=== PATIENT | female | born 1975 | race Caucasian/White ===

== ENCOUNTER 2018-05-10 08:06 | Inpatient (IN) ==
--- NOTE | 2018-04-20 10:48 | Anesthesiology Consultation ---
Date of Service April 20, 2018 Assessment & Plan (1) Encounter for pre-operative examination: Chart Review Chart Review: Acceptable Risk for Surgery and Patient seen in Pre Admission Testing Consults Requested medical (Angelia Glasgow (04/26)) Patient was seen by PCPs office on 04/26 for pre-op evaluation. Per note, "Patient is medically cleared to undergo removal of instrumentation of L4-L5, Decompression and fusion L3-L4 on 05/10/18." Teaching & Discussion Pre-Anesthesia Teaching/Discussion Notes: Instructed NPO after midnight before surgery, except medications with 15 cc of water. Medication instructions provided according to the PAT guidelines. History Surgery Operation Date: 05/10/18 10:05 Proposed Procedures p L4-L5 Removal of Instrumentation, L3-L4 Decompression and Fusion - Luke Mc DO Height/Weight Height: 5 ft 1 in Weight: 117.5 kg Allergies Allergy/AdvReac Type Severity Reaction Status Date / Time No Known Drug Allergies Allergy Unknown NONE Verified 04/18/18 11:26 Medications Home Medications Medication Instructions Recorded Confirmed Last Taken cholecalciferol (vitamin D3) 400 unit PO DAILY 04/18/18 04/18/18 Unknown [Vitamin D3] dexlansoprazole [Dexilant] 60 mg PO HS 04/18/18 04/18/18 Unknown duloxetine [Cymbalta] 60 mg PO HS 04/18/18 04/18/18 Unknown oxycodone 15 mg PO QID 04/18/18 04/18/18 Unknown ropinirole [Requip] 3 mg PO HS 04/18/18 04/18/18 Unknown topiramate [Topamax] 50 - 100 mg PO HS 04/18/18 04/18/18 Unknown mecobalamin (vitamin B12) 1 dose PO MONTHLY 04/20/18 04/20/18 Unknown promethazine 12.5 mg PO Q8H PRN 04/20/18 04/20/18 Unknown sumatriptan succinate [Imitrex 1 pen SUBCUT UD PRN 04/20/18 04/20/18 Unknown STATdose Pen] Past Medical History Medical History Chronic back pain Degenerative disc disease Fibromyalgia GERD (gastroesophageal reflux disease) H/O difficult intubation 11/05/13 - Glidescope #4, ETT #7.0, Atraumatic, GS x 1 without difficulty. Hiatal hernia Osteoarthritis Past Family History Family History Father Family history of diabetes mellitus Grandfather (Paternal) Family history of diabetes mellitus Grandmother (Paternal) Family history of diabetes mellitus Past Surgical History Surgical History Fusion of spine L4-L5, L5-S1. 11/05/13: Glidescope #4, ETT #7.0, Atraumatic, GS x 1 without difficulty. History of bilateral tubal ligation History of carpal tunnel release RIGHT - REMOVED CYST FROM RIGHT HAND AT SAME TIME History of section History of colonoscopy History of dilatation and curettage History of esophagogastroduodenoscopy (EGD) History of hysterectomy VALENCIA WITH RSO History of tonsillectomy History of tooth extraction Spinal cord stimulator status PLACED 2016, REMOVED 2018 Past Anesthesia History No Hx of Anesthesia Complications, Difficult Airway and No Family Hx of Anesthesia Complications History of PONV Yes (One time, after her hysterectomy) Motion Sickness Screening History of Motion Sickness: Yes Social History Smoking Status: Current every day smoker tobacco type: cigarettes Smoking cigarettes per day: 10 CIGS DAILY X 20 YEARS AGO (Advised) Do You Dip or Chew Tobacco: No Hx Alcohol Use: No Hx Substance Use: No substance use type: does not use Exercise / Class Metabolic Activity III < 4 Walking/Shop/Light housework (Minimal due to back pain. Only moves from bed to recliner to bed to table, etc. ) Review of Systems Patient denies chest pain, shortness of breath, dyspnea on exertion, cough, wheezing, palpitations. +Joint Pain (Back, fingers, elbows, shoulders, knees, generalized throughout all joints) +Acid reflux (controlled with medication) Physical Exam Vital Signs BP: 137/79 P: 72 R: 18 T: 97.9 SPO2: 98% on RA Constitutional + morbidly obese ENMT Thyromental Distance: < 3.5 Finger Breadths (3) Mallampati Class: III Neck normal visual inspection, trachea midline, + short neck, + thick neck and + limited neck extension Respiratory normal respiratory effort Auscultation: lungs clear to auscultation bilaterally Cardiovascular Rate/Rhythm: regular rate and regular rhythm Heart Sounds: no murmur Vessels: no carotid bruit Neurologic moves all extremities Psychiatric Orientation: alert and oriented x 3 Testing Electrocardiogram Date: 03/14/18 Findings: + ST @ (103) Nonspecific ST and T wave abnormality. Chest X-Ray Date: 03/14/18 Findings: + NAD Laboratory Results Blood Type O Positive 04/20/18 11:34 Antibody Screen NEGATIVE 04/20/18 11:34 PT 10.3 Seconds (9.0-12.0) 04/20/18 11:34 INR 1.0 (0.9-1.1) 04/20/18 11:34 APTT 30.6 Seconds (21.0-31.0) 04/20/18 11:34 Urine Color Yellow 04/20/18 Unknown Urine Appearance Clear (Clear) 04/20/18 Unknown Urine pH 5.0 (4.5-7.5) 04/20/18 Unknown Ur Specific [place] 1.014 (1.000-1.030) 04/20/18 Unknown Urine Protein Negative (Negative) 04/20/18 Unknown Urine Glucose (UA) Negative (Negative) 04/20/18 Unknown Urine Ketones Negative (Negative) 04/20/18 Unknown Urine Nitrite Negative (Negative) 04/20/18 Unknown Ur Leukocyte Esterase Negative (Negative) 04/20/18 Unknown [facility] 04/05/18: WBC: 12.0H H/H: 14.9/43.6 PLATELETS: 215 SODIUM: 140 POTASSIUM: 3.4L CHLORIDE: 111H CO2: 22L BUN: 12 CREATININE: 0.9 GLUCOSE: 104
--- NOTE | 2018-04-20 11:19 | PAT Medication Instructions ---
Medication Instructions Date of Service April 20, 2018 Home Medications cholecalciferol (vitamin D3) 400 unit PO DAILY dexlansoprazole [Dexilant] 60 mg PO HS duloxetine [Cymbalta] 60 mg PO HS oxycodone 15 mg PO QID ropinirole [Requip] 3 mg PO HS topiramate [Topamax] 50 - 100 mg PO HS mecobalamin (vitamin B12) 1 dose PO MONTHLY promethazine 12.5 mg PO Q8H NEEDED sumatriptan succinate [Imitrex STATdose Pen] 1 pen SUBCUT NEEDED Continue as directed mecobalamin (vitamin B12) 1 dose PO MONTHLY STOP taking 24 hours before surgery ropinirole [Requip] 3 mg PO HS DO NOT take the morning of surgery cholecalciferol (vitamin D3) 400 unit PO DAILY promethazine 12.5 mg PO Q8H NEEDED sumatriptan succinate [Imitrex STATdose Pen] 1 pen SUBCUT NEEDED Take morning of surgery With a small sip of water, OTHERWISE NOTHING TO EAT OR DRINK AFTER MIDNIGHT: oxycodone 15 mg PO QID (stop 4 hours before surgery) Take evening before surgery dexlansoprazole [Dexilant] 60 mg PO HS duloxetine [Cymbalta] 60 mg PO HS oxycodone 15 mg PO QID topiramate [Topamax] 50 - 100 mg PO HS promethazine 12.5 mg PO Q8H NEEDED sumatriptan succinate [Imitrex STATdose Pen] 1 pen SUBCUT NEEDED Other Notes If you have any questions please call us at [phone] or [phone] or [phone] or [phone]
[2018-04-20 13:13] LABS: Appearance Urine Clear (Clear); Bilirubin Urine Negative (Negative); Blood Urine Negative (Negative); Color Urine Yellow; Glucose Urine UA Negative (Negative); Ketones Urine Negative (Negative); Leukocyte Esterase Urine Negative (Negative); Nitrite Urine Negative (Negative); Protein Urine Negative (Negative); Specific Gravity Urine 1.014 (1.000-1.030); Urobilinogen Urine Negative (Negative)
[2018-04-20 13:22] LABS: Partial Thromboplastin Ratio 1.1; Partial Thromboplastin Time 30.6 Seconds (21.0-31.0); Prothrombin Time 10.3 Seconds (9.0-12.0)
[~2018-05-10 08:06] MED LIST: ACETAMINOPHEN 500 MG TAB PO SCH; CEFAZOLIN 3000MG 65 ML IV SCH; CeleBREX 200 MG CAP PO SCH; GABAPENTIN 300 MG x 3 PO SCH; HYDROmorphone INJ 2 MG/ML SYR/VIAL ONE; LR 15ML/HR IV SCH; MIDAZOLAM HCL 1 MG/ML 2ML VIAL ONE; fentaNYL citrate 100 MCG/2 ML VIAL ONE
[2018-05-10] MEDS ORDERED: fentaNYL citrate 100 MCG/2 ML VIAL ONE ×6 (08:51→11:56)
[2018-05-10] MEDS ORDERED: HYDROmorphone INJ 2 MG/ML SYR/VIAL ONE ×2 (08:51→09:35)
[2018-05-10] MEDS ORDERED: ONDANSETRON INJ 2 MG/ML 2 ML VIAL IV PRN (08:57)
[2018-05-10] MEDS ORDERED: ePHEDrine sulfate 50 MG/ML AMP IV PRN (08:57)
[2018-05-10] MEDS ORDERED: PROMETHAZINE HCL 12.5 MG in SODIUM CHLORIDE 0.9% 50 ML IV PRN ×2 (08:57→14:02)
[2018-05-10] MEDS ORDERED: PHENYLEPHRINE 100MCG/ML 5ML SYR IV PRN (08:57)
[2018-05-10] MEDS ORDERED: ATROPINE SULFATE 0.1 MG/ML 10ML SYR IV PRN (08:57)
[2018-05-10] MEDS ORDERED: PROPOFOL IV EMULSION 10 MG/ML 20 ML VIAL IV ONE (09:01)
[2018-05-10] MEDS ORDERED: ROCURONIUM BROMIDE 10 MG/ML 5 ML VIAL ONE (09:01)
[2018-05-10] MEDS ORDERED: GLYCOPYRROLATE 0.2 MG/ML VIAL ONE (09:01)
[2018-05-10] MEDS ORDERED: LIDOCAINE HCL 2% 2 ML VIAL/AMP(20MG/ML) INFIL ONE (09:01)
[2018-05-10] MEDS ORDERED: DEXAMETHASONE SOD INJ 4 MG/ML VIAL ONE (09:01)
[2018-05-10] MEDS ORDERED: NEOSTIGMINE METHYLSULFATE 1 MG/ML 10ML VIAL ONE (09:01)
[2018-05-10] MEDS ORDERED: ONDANSETRON INJ 2 MG/ML 2 ML VIAL ONE (09:01)
--- NOTE | 2018-05-10 09:13 | History & Physical Bridge Note ---
Date of Service May 10, 2018 History & Physical Bridge Note I have examined the patient, reviewed the History & Physical and in the interval since the performance of the History & Physical I have noted the following changes of clinical significance: no changes noted
--- NOTE | 2018-05-10 09:14 | History & Physical Report ---
Date of Service May 10, 2018 Assessment & Plan (1) Lumbar stenosis with neurogenic claudication: Removal of instrumentation L4-5 decompression fusion L3-4 Present on Admission?: Yes History of Present Illness Chief Complaint: Back and leg pain Primary Care Provider: Angelia Glasgow Female who presents with chronic persistent back and leg pain. After failing extensive course of nonoperative care she is here for surgical intervention. Allergies Allergy/AdvReac Type Severity Reaction Status Date / Time No Known Drug Allergies Allergy Unknown NONE Verified 05/10/18 08:31 Home Medications Home Medications Medication Instructions Recorded Confirmed Type cholecalciferol (vitamin D3) 400 unit PO DAILY 04/18/18 05/10/18 History [Vitamin D3] dexlansoprazole [Dexilant] 60 mg PO HS 04/18/18 05/10/18 History duloxetine [Cymbalta] 60 mg PO HS 04/18/18 05/10/18 History oxycodone 15 mg PO QID 04/18/18 05/10/18 History ropinirole [Requip] 3 mg PO HS 04/18/18 05/10/18 History topiramate [Topamax] 50 - 100 mg PO HS 04/18/18 05/10/18 History mecobalamin (vitamin B12) 1 dose PO MONTHLY 04/20/18 05/10/18 History promethazine 12.5 mg PO Q8H PRN 04/20/18 05/10/18 History sumatriptan succinate [Imitrex 1 pen SUBCUT UD PRN 04/20/18 05/10/18 History STATdose Pen] Past Med/Surg History Family History Father Family history of diabetes mellitus Grandfather (Paternal) Family history of diabetes mellitus Grandmother (Paternal) Family history of diabetes mellitus Social History Preferred Language: Dutch Communication Ability: Effective Wax Bleacher Required: No Beliefs That Will Affect Care: None Current Living Situation: Spouse Other Information That Helps Us Care for You: No Feels Safe at Home: Yes Safety Concerns: Feels Safe At This Time Smoking Status: Current every day smoker Hx Alcohol Use: No Hx Substance Use: No Physical Exam Vital Signs (Past 24 Hours): Last Vital Signs Temp 36.6 C 05/10/18 08:49 Pulse 69 05/10/18 08:49 Resp 20 05/10/18 08:49 BP 145/91 H 05/10/18 08:49 Pulse Ox 97 05/10/18 08:49 Results & Data Medications Administered Acetaminophen (Tylenol) 1,000 mg PO PREOP ELVIA Stop: 05/10/18 18:00 Last Admin: 05/10/18 08:52 Dose: 1,000 mg Documented by: [id number] Celecoxib (Celebrex) 200 mg PO PREOP ELVIA Stop: 05/10/18 18:00 Last Admin: 05/10/18 08:51 Dose: 200 mg Documented by: [id number] Gabapentin (Neurontin) 900 mg PO PREOP ELVIA Stop: 05/10/18 18:00 Last Admin: 05/10/18 08:52 Dose: 900 mg Documented by: [id number] Lactated Ringer's (Lr) 1,000 mls @ 15 mls/hr IV .Q24H ELVIA Stop: 05/11/18 05:59 Last Admin: 05/10/18 08:51 Dose: 15 mls/hr Documented by: [id number]
[2018-05-10] MEDS ORDERED: BUPIVACAINE/EPINEPHRINE 0.5% MPF 1:200,000 30 ML VIAL ONE (09:30)
[2018-05-10] MEDS ORDERED: BACITRACIN INJ 50,000 UNIT VIAL ONE (09:30)
[2018-05-10] MEDS ORDERED: ALBUTEROL HFA INHALER 8.5 GM ONE (10:23)
[2018-05-10] MEDS ORDERED: FLOSEAL HEMOSTATIC MATRIX 10ML TOP ONE (10:24)
--- NOTE | 2018-05-10 11:50 | Operative Report ---
Post Operative Report Pre & Post Diagnosis Operation Date: 05/10/18 10:05 Pre-Op Diagnosis: Lumbar Spinal Stenosis without Neurogenic Claudication Post-Op Diagnosis: Lumbar Spinal Stenosis without Neurogenic Claudication Procedure Operation Date: 05/10/18 10:05 Actual Procedures #1 removal of posterior instrumentation L4-5 per #2 expiration of fusion L4-5 per #3 lumbar decompression bilateral medial facetectomies foraminotomies L2-3 L3-4. #4 posterior spinal fusion L3-4. #5 placement posterior instrumentation L3-4. #6 interbody fusion L3-4. #7 placement of titanium cage 12 x 22 mm at L3-4. #8 placement of local autograft in the posterior gutters. #9 placement infuse collagen sponge bone mass graft in the posterior gutters and ostial amp and interbody space. Surgeon Luke Mc DO Admissions Gate Attendant Lu Ro Estimated Blood Loss 250 Findings Consistent with Post-Op Diagnosis Specimens None Description of Procedure Patient was met with preoperatively case discussed all questions addressed. After informed consent obtained patient was taken to the operative suite underwent intubation and placed in a prone position on the Nikolay table on top of the Phil frame. All bony prominences were well-padded eyes inspected to ensure no external pressure placed upon the. This point the lumbar spine was prepped and draped in the normal sterile fashion. Sharp dissection with the assistance of Bovie cautery was performed down to and exposing the lamina and transverse processes of L3 and instrumentation at L4-5 bilaterally. And then pr oceeded move the hardware bilaterally I did retain the pedicle screws and L5 bilaterally as they were completely ensconced in bone and unable to remove. I then performed a complete laminectomy of L3 partial laminectomy L2 including bilateral medial facetectomies foraminotomies addressing severe stenosis. Pedicle screws were then placed in L3 and L4 bilaterally with assistance of fluoroscopy and the purposes jairo placed. By way of a transforaminal portion right complete discectomy of L3-4 was was performed and endplates curetted to subcortical mean bone and a 12 x 22 mm titanium cage filled with ostium bone graft was tapped in position. The rods were then compressed locked in final position bilaterally. The transverse processes of L3 and L4 were then burred to subcortical bleeding bone. Infuse collagen sponge mass graft local autograft placed in the posterior lateral gutters. 15 round FACUNDO drain inserted. Incision was then closed with 2 Vicryl in the fascia and 4 Monocryl for final skin closure. Steri-Strip sterile dressings placed. Patient will continue to PACU stable disc. Please note Lu Ro present throughout the entire procedure involved in patient positioning complex portions of the surgery and final skin closure. I attest to the content of the Intraoperative Record and any orders documented therein. Any exceptions are noted below.
[2018-05-10] MEDS ORDERED: KETOROLAC 30 MG/ML VIAL ONE (11:54)
[2018-05-10] MEDS ORDERED: METOCLOPRAMIDE HCL INJ 5 MG/ML 2 ML VIAL ONE (11:54)
[2018-05-10] MEDS ORDERED: ESMOLOL HCL INJ 10 MG/ML 10ML VIAL IV ONE (12:08)
[2018-05-10] MEDS: fentaNYL citrate 100 MCG/2 ML VIAL IV PRN ×4 (12:20→12:35)
--- NOTE | 2018-05-10 12:26 | Fluoroscopy Report ---
FL lumbar spine 2-3V HISTORY: 42 years-old Female L4-L5 HARDWARE REMOVAL, L3-L4 DECOMPRESSION/FUSION fusion decompression of the lower lumbar spine COMPARISON: Lumbar spine fluoroscopic images 11/05/2013 TECHNIQUE: 2 spot fluoroscopic images of the lumbar spine were obtained utilizing 11.6 seconds of flu oroscopy time FINDINGS: Laminectomy changes at L3-L5. Discectomy changes are seen at L3-L4 and L4-L5. Posterior interbody jairo and screw fusion at L3-L4. Pedicle screws are seen at the L5 level. Status post removal of the rods at L4-L5. IMPRESSION: Fluoroscopic assistance as above. Please see operative report for further details. The above report was generated using voice recognition software. It may contain grammatical, syntax o r spelling errors. Electronically signed by: Dev Whatley M.D. 05/10/2018 12:24 PM
[2018-05-10] MEDS: HYDROmorphone INJ 1 MG/ML SYRINGE IV PRN ×10 (12:40→13:26)
[2018-05-10] MEDS ORDERED: ACETAMINOPHEN 1,000 MG/100 ML VIAL IV ONE (13:21)
[2018-05-10] MEDS ORDERED: HYDROmorphone INJ 1 MG/ML SYRINGE IV PRN (13:21)
[2018-05-10] MEDS ORDERED: ACETAMINOPHEN 1000 MG/100 ML IV IV ONE (13:22)
--- NOTE | 2018-05-10 13:41 | Anesthesiology Progress Note ---
Date of Service May 10, 2018 Anesthesia Post Procedure Vital Signs Vital Signs: Temp Pulse Pulse Pulse Resp BP BP 05/10/18 13:36 36.6 C 69 15 161/70 H 05/10/18 13:35 67 13 05/10/18 13:31 60 10 L 137/62 05/10/18 13:30 73 13 05/10/18 13:26 60 12 153/71 H 05/10/18 13:25 72 17 05/10/18 13:21 69 15 135/72 05/10/18 13:20 72 23 05/10/18 13:16 67 17 146/64 H 05/10/18 13:15 73 15 05/10/18 13:11 68 15 148/71 H 05/10/18 13:10 69 29 H 05/10/18 13:06 67 13 138/63 05/10/18 13:05 67 16 05/10/18 13:01 66 17 154/67 H 05/10/18 13:00 70 21 05/10/18 12:56 65 16 144/64 H 05/10/18 12:55 69 18 05/10/18 12:51 67 20 170/91 H 05/10/18 12:50 69 18 05/10/18 12:47 69 14 05/10/18 12:46 69 14 144/95 H 05/10/18 12:45 69 14 05/10/18 12:41 70 14 157/88 H 05/10/18 12:40 74 14 05/10/18 12:36 80 15 159/77 H 05/10/18 12:35 70 17 05/10/18 12:31 74 20 157/81 H 05/10/18 12:30 74 18 05/10/18 12:27 80 18 119/88 05/10/18 12:25 83 15 05/10/18 12:22 83 16 139/87 05/10/18 12:20 78 16 05/10/18 12:16 87 18 160/85 H 05/10/18 12:15 88 13 05/10/18 12:12 36.7 C 82 90 19 157/91 H 157/91 H 05/10/18 08:49 36.6 C 69 20 145/91 H Pulse Ox 05/10/18 13:36 95 05/10/18 13:35 95 05/10/18 13:31 96 05/10/18 13:30 97 05/10/18 13:26 96 05/10/18 13:25 97 05/10/18 13:21 96 05/10/18 13:20 96 05/10/18 13:16 97 05/10/18 13:15 96 05/10/18 13:11 97 05/10/18 13:10 98 05/10/18 13:06 96 05/10/18 13:05 97 05/10/18 13:01 97 05/10/18 13:00 96 05/10/18 12:56 98 05/10/18 12:55 100 05/10/18 12:51 97 05/10/18 12:50 99 05/10/18 12:47 100 05/10/18 12:46 99 05/10/18 12:45 99 05/10/18 12:41 99 05/10/18 12:40 98 05/10/18 12:36 98 05/10/18 12:35 100 05/10/18 12:31 100 05/10/18 12:30 100 05/10/18 12:27 100 05/10/18 12:25 100 05/10/18 12:22 100 05/10/18 12:20 100 05/10/18 12:16 97 05/10/18 12:15 99 05/10/18 12:12 98 05/10/18 08:49 97 Pain Intensity Lower Back: Pain Intensity: 6 Notes Mental Status: alert / awake / arousable Patient Amnestic to Procedure: Yes Nausea / Vomiting: adequately controlled Pain: adequately controlled Airway Patency, RR, SpO2: stable & adequate BP & HR: stable & adequate Hydration State: stable & adequate Anesthetic Complications: no major complications apparent
[2018-05-10] MEDS ORDERED: LORazepam 0.5 MG TAB PO PRN (14:02)
[2018-05-10] MEDS ORDERED: OXYCODONE HCL IR 5 MG TAB (IMMEDIATE RELEASE) PO SCH (14:02)
[2018-05-10] MEDS ORDERED: ACETAMINOPHEN 1,000 MG/100 ML VIAL IV PRN (14:02)
[2018-05-10] MEDS ORDERED: LORazepam 0.5 MG/1 ML VIAL IV PRN (14:02)
[2018-05-10] MEDS ORDERED: SOD PHOSPHATE/SOD BIPHOSPHATE ENEMA 132 ML BTL PR PRN (14:02)
[2018-05-10] MEDS ORDERED: FAMOTIDINE 20 MG TAB PO PRN (14:02)
[2018-05-10] MEDS ORDERED: DO NOT ADMINISTER FLU VACCINE PRN (14:02)
[2018-05-10] MEDS ORDERED: SUMAtriptan succinate 6 MG/0.5 ML VIAL SQ PRN (14:02)
[2018-05-10] MEDS ORDERED: DO NOT ADMINISTER PNEUMOCOCCAL VACCINE PRN (14:02)
[2018-05-10] MEDS ORDERED: METOCLOPRAMIDE HCL INJ 5 MG/ML 2 ML VIAL IV PRN (14:02)
[2018-05-10] MEDS ORDERED: PROMETHAZINE HCL 25 MG TAB PO PRN (14:02)
[2018-05-10] MEDS ORDERED: MAGNESIUM HYDROXIDE SUSP 30 ML UDC PO PRN (14:02)
[2018-05-10] MEDS ORDERED: ACETAMINOPHEN 500 MG TAB PO PRN (14:02)
[2018-05-10] MEDS ORDERED: BISACODYL 10 MG SUPP PR PRN (14:02)
[2018-05-10] MEDS ORDERED: ALUMINUM/MAGNESIUM SUSP 30 ML UDC PO PRN (14:02)
[2018-05-10] MEDS ORDERED: ONDANSETRON 4 MG TAB PO PRN (14:02)
[2018-05-10] MEDS ORDERED: OXYCODONE HCL IR 5 MG TAB (IMMEDIATE RELEASE) PO PRN (15:00)
[2018-05-10] MEDS: HYDROmorphone INJ 0.5 MG/0.5 ML SYR IV PRN ×2 (15:20→18:40)
[2018-05-10] MEDS: LACTATED RINGER'S 1,000 ML IV SCH ×2 (15:27→22:33)
[2018-05-10] MEDS: CEFAZOLIN 2000MG 2,000 MG/15 ML SYR IV SCH (17:11)
[2018-05-10] MEDS: KETOROLAC 30 MG/ML VIAL IV SCH ×2 (17:11→23:37)
[2018-05-10] MEDS: DOCUSATE SODIUM/SENNA 50/8.6MG TAB PO SCH (21:45)
[2018-05-10] MEDS: ROPINIROLE HCL 1 MG TABLET PO SCH (21:45)
[2018-05-10] MEDS: DULOXETINE HCL 60 MG CAP PO SCH (21:45)
[2018-05-10] MEDS: PANTOprazole 40 MG TAB PO SCH (21:45)
[2018-05-11] MEDS: CEFAZOLIN 2000MG 2,000 MG/15 ML SYR IV SCH (02:32)
[2018-05-11] MEDS: LACTATED RINGER'S 1,000 ML IV SCH (04:20)
[2018-05-11] MEDS: OXYCODONE HCL IR 5 MG TAB (IMMEDIATE RELEASE) PO PRN ×3 (04:23→21:03)
[2018-05-11] MEDS: POLYETHYLENE (MIRALAX) 17 GM PACK PO SCH ×4 (06:13→23:41)
[2018-05-11] MEDS: KETOROLAC 30 MG/ML VIAL IV SCH ×2 (06:13→11:45)
[2018-05-11 07:27] LABS: Basophils # (auto) 0.01 K/uL (0-0.2); Basophils % (auto) 0.1 %; Eosinophils # (auto) 0.01 K/uL (0-0.5); Eosinophils % (auto) 0.1 %; Hematocrit (blood only) 31.9 % (37-47); Hemoglobin 10.5 g/dL (12.0-16.0); Immature Granulocytes # (auto) 0.03 K/uL (0.00-0.02); Immature Granulocytes % (auto) 0.2 %; Lymphocytes # (auto) 2.14 K/uL (1.2-3.4); Lymphocytes % (auto) 15.8 %; Mean Corpuscular Hgb Conc 32.9 g/dL (32-36); Mean Corpuscular Volume 94.9 fL (80-100); Mean Platelet Volume 12.6 fL (7.4-10.4); Monocytes # (auto) 1.38 K/uL (0.11-0.59); Monocytes % (auto) 10.2 %; Neutrophils % (auto) 73.6 %; Platelet Count 148 K/uL (130-400); RDW Standard Deviation 44.6 fL (36.4-46.3); Red Blood Count 3.36 M/uL (4.2-5.4); White Blood Count 13.57 K/uL (4.8-10.8)
[2018-05-11 07:46] LABS: BUN Creatinine Ratio 10.1 (10-20); Calcium 8.4 mg/dl (8.5-10.1); Creatinine Clr Calc Pharmacy 86.6 ml/min; Est GFR (African American) 80.9; Est GFR (Non-African American) 69.8; Potassium 3.5 mmol/L (3.5-5.1)
--- NOTE | 2018-05-11 07:58 | Orthopedic Progress Note ---
Date of Service May 11, 2018 Assessment & Plan (1) Lumbar stenosis with neurogenic claudication: Today we will begin physical therapy advance her bowel regimen anticipate discharge home tomorrow Tuesday. Present on Admission?: Yes Subjective Back pain is controlled leg symptoms improved. She was ambulating last evening. Physical Exam Vital Signs (Past 24 Hours): Last Vital Signs Temp 36.8 C 05/11/18 07:02 Pulse 63 05/11/18 07:02 Resp 18 05/11/18 07:02 BP 111/63 05/11/18 07:02 Pulse Ox 97 05/11/18 07:02 Physical Exam: On exam she is good strength testing appears comfortable.
--- NOTE | 2018-05-11 08:04 | Anesthesiology Progress Note ---
Date of Service May 11, 2018 Anesthesia Post Procedure Vital Signs Vital Signs: Temp Pulse Pulse Pulse Resp BP BP 05/11/18 07:02 36.8 C 63 18 111/63 05/11/18 04:00 36.7 C 75 18 132/66 05/10/18 23:00 36.9 C 57 L 16 136/86 05/10/18 19:08 36.5 C 73 18 116/77 05/10/18 17:09 36.4 C L 71 18 120/77 05/10/18 16:13 36.4 C L 90 20 120/71 05/10/18 15:18 36.6 C 72 18 121/82 05/10/18 14:32 79 18 135/74 05/10/18 14:00 36.7 C 84 18 138/68 05/10/18 13:46 65 14 154/76 H 05/10/18 13:45 68 14 05/10/18 13:41 64 17 128/70 05/10/18 13:40 73 13 05/10/18 13:37 86 15 05/10/18 13:36 36.6 C 69 15 161/70 H 05/10/18 13:35 67 13 05/10/18 13:31 60 10 L 137/62 05/10/18 13:30 73 13 05/10/18 13:26 60 12 153/71 H 05/10/18 13:25 72 17 05/10/18 13:21 69 15 135/72 05/10/18 13:20 72 23 05/10/18 13:16 67 17 146/64 H 05/10/18 13:15 73 15 05/10/18 13:11 68 15 148/71 H 05/10/18 13:10 69 29 H 05/10/18 13:06 67 13 138/63 05/10/18 13:05 67 16 05/10/18 13:01 66 17 154/67 H 05/10/18 13:00 70 21 05/10/18 12:56 65 16 144/64 H 05/10/18 12:55 69 18 05/10/18 12:51 67 20 170/91 H 05/10/18 12:50 69 18 05/10/18 12:47 69 14 05/10/18 12:46 69 14 144/95 H 05/10/18 12:45 69 14 04/03/19 12:41 70 14 157/88 H 05/10/18 12:40 74 14 05/10/18 12:36 80 15 159/77 H 05/10/18 12:35 70 17 05/10/18 12:31 74 20 157/81 H 05/10/18 12:30 74 18 05/10/18 12:27 80 18 119/88 05/10/18 12:25 83 15 05/10/18 12:22 83 16 139/87 05/10/18 12:20 78 16 05/10/18 12:16 87 18 160/85 H 05/10/18 12:15 88 13 05/10/18 12:12 36.7 C 82 90 19 157/91 H 157/91 H 05/10/18 08:49 36.6 C 69 20 145/91 H Pulse Ox 05/11/18 07:02 97 05/11/18 04:00 96 05/10/18 23:00 95 05/10/18 19:08 94 05/10/18 17:09 96 05/10/18 16:13 98 05/10/18 15:18 97 05/10/18 14:32 98 05/10/18 14:00 96 05/10/18 13:46 96 05/10/18 13:45 95 05/10/18 13:41 96 05/10/18 13:40 97 05/10/18 13:37 98 05/10/18 13:36 95 05/10/18 13:35 95 05/10/18 13:31 96 05/10/18 13:30 97 05/10/18 13:26 96 05/10/18 13:25 97 05/10/18 13:21 96 05/10/18 13:20 96 05/10/18 13:16 97 05/10/18 13:15 96 05/10/18 13:11 97 05/10/18 13:10 98 05/10/18 13:06 96 05/10/18 13:05 97 05/10/18 13:01 97 05/10/18 13:00 96 05/10/18 12:56 98 05/10/18 12:55 100 05/10/18 12:51 97 05/10/18 12:50 99 05/10/18 12:47 100 04/03/19 12:46 99 05/10/18 12:45 99 05/10/18 12:41 99 05/10/18 12:40 98 05/10/18 12:36 98 05/10/18 12:35 100 05/10/18 12:31 100 05/10/18 12:30 100 05/10/18 12:27 100 05/10/18 12:25 100 05/10/18 12:22 100 05/10/18 12:20 100 05/10/18 12:16 97 05/10/18 12:15 99 05/10/18 12:12 98 05/10/18 08:49 97 Pain Intensity Lower Back: Pain Intensity: 9 Notes Mental Status: alert / awake / arousable and participated in evaluation Patient Amnestic to Procedure: Yes Nausea / Vomiting: adequately controlled Pain: adequately controlled Airway Patency, RR, SpO2: stable & adequate BP & HR: stable & adequate Hydration State: stable & adequate Anesthetic Complications: no major complications apparent and Pt Satisfied with anesthetic care
[2018-05-11] MEDS: CHOLECALCIFEROL (VITAMIN D) 400 UNITS TABLET PO SCH (08:37)
[2018-05-11] MEDS: DULOXETINE HCL 60 MG CAP PO SCH (21:04)
[2018-05-11] MEDS: DOCUSATE SODIUM/SENNA 50/8.6MG TAB PO SCH (21:04)
[2018-05-11] MEDS: PANTOprazole 40 MG TAB PO SCH (21:04)
[2018-05-11] MEDS: ROPINIROLE HCL 1 MG TABLET PO SCH (21:04)
[2018-05-12] MEDS: OXYCODONE HCL IR 5 MG TAB (IMMEDIATE RELEASE) PO PRN ×3 (04:35→13:25)
[2018-05-12] MEDS: POLYETHYLENE (MIRALAX) 17 GM PACK PO SCH ×2 (05:59→13:25)
[2018-05-12] MEDS: CHOLECALCIFEROL (VITAMIN D) 400 UNITS TABLET PO SCH (08:23)
--- NOTE | 2018-05-12 13:29 | Discharge Summary ---
Date of Service May 12, 2018 Admission HPI Per Admitting Provider Female who presents with chronic persistent back and leg pain. After failing extensive course of nonoperative care she is here for surgical intervention. Principal Diagnosis Lumbar spinal stenosis with neurogenic claudication Discharge Data Allergies Allergy/AdvReac Type Severity Reaction Status Date / Time No Known Drug Allergies Allergy Unknown NONE Verified 05/10/18 08:31 Consultations 05/10/18 14:02 Consult Case Management - Discharge Planning Routine Procedures Performed Operation Date: 05/10/18 10:05 Actual Procedures p L3-L4 Decompression and Fusion with Interbody(Not Applicable) - Luke Mc DO s L4-L5 Removal of Instrumentation(Not Applicable) - Luke Mc DO Ordered Studies 05/10/18 09:00 FL fluoroscopy <1hr Routine FL lumbar spine 2-3V Routine Hospital Course (1) Lumbar stenosis with neurogenic claudication: Patient with lumbar decompression fusion tolerated this well was taken to orthopedic floor postoperative. Postop day and when she was up and ambulating progressive postop day #2 FACUNDO drain decreasing appropriately. Leg pain markedly improved. Subsequently discharged home. Discharge orders and instructions from the chart for further review. Total Time Total Time Spent Total Time Spent (In Minutes): Not applicable Discharge Plan Discharge Items Patient Disposition: Home - Self-Care Reason For Visit: LUMBAR SPINAL STENOSIS W/OUT NEUROGENIC CLAUDICATI Discharge Diagnosis: lumbar stenosis Discharge Goals: Decrease discomfort Activity: Per 'Additional Instructions' section Non-emergency contact: Primary Care Provider Call non-emergency contact if: you have any medication questions Follow-up/Referrals: Angelia Glasgow PA-C [Primary Care Provider] - Diet: Regular Addtl Provider Instructions: ACTIVITY RECOMMENDATIONS: SELF CARE INSTRUCTIONS AFTER THORACIC/LUMBAR FUSIONS 1. You may walk to your tolerance. It is good exercise for your legs and back. Expect some back and intermittent leg aches and pains. 2. You may perform "counter-top" level activities (make a sandwich, philip with a project, etc.). 3. No bending or lifting of more than 10 pounds or back twisting of any nature (roll like a log when turning in bed). 4. You may ride in a car for 20-30 minutes at a time. No driving until after your first visit with your doctor. 5. Frequent changes of position and restricting sitting to 30 minutes at a time will help limit the amount of back spasms and stiffness you may experience. 6. You may discontinue the use of ambulatory aids (cane, crutches, etc.) once your strength and confidence allow. 7. You may marketing underwriter the shower and let water strike your incision when you arrive home at least once daily. Do not take a tub bath, sit in a hot tub or go into a swimming pool until after your first recheck in the office. SPECIAL CARE INSTRUCTIONS: VERY IMPORTANT TO READ AND REVIEW A. Your surgical incision has been closed with a cosmetic suture under the skin that will dissolve in about 6 weeks. In 14 days, you can use a pair of clean scissors and cut the suture that is left outside of the skin at the ends of your incision. 1. The small skin tapes can be removed 7 days after surgery if they have not fallen off by that point. 2. You may keep the wound open to air as much as possible to promote healing after post-op day number 5 unless told otherwise by your doctor. 3. If you think the wound looks like it is becoming infected (redness or worsening drainage) and/or you are experiencing fever, chill or worsening back pain and muscle spasms, contact the office so that we may evaluate you as soon as possible. B. Complications are uncommon, but please contact us if you have any signs or symptoms of: 1. wound infection (fever higher than 102.5 degrees F, redness, separation of wound, drainage, or increasing pain from the incision) 2. blood clots in legs (pain, swelling, redness and warmth in legs) 3. urinary tract infection (fever higher than 102.5 degrees F, burning upon urination or increased frequency of urination) 4. nerve problems (inability to walk on your toes or heels, numbness, loss of bowel or bladder control) 5. any other symptoms that concern you C. Please call the office at if you have any concerns or questions about your operation or recovery. D. No smoking! Smoking drastically decreases the chance of a solid fusion. E. Do not take any anti-inflammatory medications (Indocin, Advil, Motrin, Aspirin, Naprosyn, etc.) as these may inhibit the chance of a solid fusion. Tylenol is okay to take for pain. MANAGING PAIN AFTER SPINAL SURGERY 1. Narcotic medication is intended for short-term use and will be provided for surgical pain. Surgical pain usually lasts for a period of 4-6 weeks. Narcotic medication includes Percocet, Vicodin, Darvocet, Tylenol #3 or Lortab. 2. Longer-term pain is more appropriately treated with non-narcotic medication such as Tylenol ES. 3. Muscle spasm is not appropriately treated with narcotics. Muscle relaxers such as Soma, Flexeril or Skelaxin can be used along with Tylenol ES. 4. Remember that we all live with some "aches and pains". This is not unusual or uncommon after an injury or as we get older. a. Back pain is expected and may include muscle spasms for 4 to 6 weeks after surgery. The pain should gradually improve. If the pain worsens for no apparent reason, please contact the office. b. Intermittent leg pain may also be experienced and should not be concerned about unless it worsens for no apparent reason. If so, please contact the office. 5. We will provide appropriate medication within the normal guidelines of their prescribed use. We will also be very cautious and aware of potential abuse and extended duration of patients' medication needs. a. Pain medications are for your comfort and to assist with sleep and rest so that the tissue can heal. They are not provided in order to return to normal activity and should not be used through the day. To do so or worsening pain at night can result from ongoing tissue damage and development of tolerance to the prescribed medicine. 6. Please allow 2-3 days to process refills. Prescriptions will not be mailed but must be picked up at the office. FOLLOW UP VISIT: Keep your scheduled follow-up appointment. Any questions, please call the office at . Prescriptions: New oxycodone 5 mg Tablet 5 mg PO Q4H PRN (Reason: Pain) Qty: 30 RF: 0 Continued ropinirole [Requip] 3 mg Tablet 3 mg PO HS RF: 0 oxycodone 15 mg Tablet 15 mg PO QID RF: 0 cholecalciferol (vitamin D3) [Vitamin D3] 400 unit Tablet 400 unit PO DAILY RF: 0 topiramate [Topamax] 50 mg Tablet 50 - 100 mg PO HS RF: 0 duloxetine [Cymbalta] 60 mg Capsule,Delayed Release(Dr/Ec) 60 mg PO HS RF: 0 Dexilant 60 mg Capsule,Biphase Delayed Releas 60 mg PO HS RF: 0 promethazine 12.5 mg Tablet 12.5 mg PO Q8H PRN (Reason: Nausea) RF: 0 sumatriptan succinate [Imitrex STATdose Pen] 6 mg/0.5 mL Pen Injector 1 pen SUBCUT UD PRN (Reason: Migraine Headache) RF: 0 mecobalamin (vitamin B12) 5,000 mcg Tablet,Disintegrating 1 dose PO MONTHLY RF: 0 Stand-Alone Forms: [facility] Discharge Orders: Discharge Order (Routine); Ordered 05/12/18 Ordered By: Luke Mc Admission Data Admit Date/Time: 05/10/18 11:55 Attending Provider: Luke Mc Admit Provider: Luke Mc Primary Care Provider: Angelia Glasgow Service: Surgical Services
== END 2018-05-12 15:01 | disposition home or self-care (01) | DRG 455 ==
LOC: ASU 08:06 → 3W 11:55

== ENCOUNTER 2020-12-25 10:36 | Inpatient (IN) ==
[2020-12-25 12:09] LABS: Appearance Urine Clear (Clear); Bilirubin Urine Negative (Negative); Blood Urine Negative (Negative); Color Urine Yellow; Glucose Urine UA Negative (Negative); Ketones Urine Negative (Negative); Leukocyte Esterase Urine Negative (Negative); Nitrite Urine Negative (Negative); Protein Urine Negative (Negative); Urobilinogen Urine Negative (Negative); pH Urine 7.5 (4.5-7.5)
[2020-12-25 12:21] LABS: Basophils # (auto) 0.08 K/uL (0-0.2); Basophils % (auto) 0.8 %; Eosinophils # (auto) 0.58 K/uL (0-0.5); Eosinophils % (auto) 5.6 %; Hematocrit (blood only) 43.5 % (37-47); Hemoglobin 14.4 g/dL (12.0-16.0); Immature Granulocytes # (auto) 0.02 K/uL (0.00-0.02); Immature Granulocytes % (auto) 0.2 %; Lymphocytes % (auto) 27.9 %; Mean Corpuscular Hemoglobin 31.9 pg (25-34); Mean Corpuscular Hgb Conc 33.1 g/dL (32-36); Mean Corpuscular Volume 96.5 fL (80-100); Mean Platelet Volume 12.6 fL (7.4-10.4); Monocytes # (auto) 0.85 K/uL (0.11-0.59); Monocytes % (auto) 8.2 %; Neutrophils # (auto) 5.95 K/uL (1.4-6.5); Neutrophils % (auto) 57.3 %; Platelet Count 180 K/uL (130-400); RDW Coefficient of Variation 13.2 % (11.5-14.5); RDW Standard Deviation 46.3 fL (36.4-46.3); Red Blood Count 4.51 M/uL (4.2-5.4); White Blood Count 10.38 K/uL (4.8-10.8)
[2020-12-25 12:59] LABS: Albumin Level 3.6 gm/dl (3.4-5.0); Bilirubin,Total 0.4 mg/dl (0.2-1); Calcium 8.6 mg/dl (8.5-10.1); Creatinine Clr Calc Pharmacy 93.7 ml/min; Est GFR (African American) 90.1 ml/min; Est GFR (Non-African American) 77.7 ml/min; Globulin 3.5 gm/dl (2.5-4.0); Total Protein 7.1 gm/dl (6.4-8.2)
[2020-12-25] MEDS ORDERED: dexAMETHasone**PF** 10 MG/ML VIAL IV ONE (13:14)
[2020-12-25] MEDS ORDERED: HYDROmorphone INJ 1 MG/ML SYRINGE IV STA ×2 (13:14→14:12)
--- NOTE | 2020-12-25 14:12 | Emergency Department Note ---
Impression & Plan Lumbar radiculopathy ED Provider Note CHIEF COMPLAINT: Lower back pain HISTORY OF PRESENT ILLNESS: Caren Johnson is a 45 year old female with history of degenerative disc disease s/p multiple lumbar spinal surgeries with Dr. Mc who presents to the Emergency Department for evaluation of worsening pain to her bilateral lower back radiating into her legs with associated numbness/tingling and weakness which was exacerbated 2 weeks prior to arrival. The patient is currently following with Dr. Mc of Orthopedic Spine for her symptoms and recently had an MRI of her lumbar spine 10 days ago at [facility] for surgical planning, which is not scheduled until April 2021. She denies recent falls or trauma prior to her exacerbation of symptoms but since the time of onset, her status has continued to decline as she has since developed weakness in her legs with numbness/tingling in her feet. She denies specific saddle paresthesias but states that she is now incontinent of urine and has been having difficulty moving her bowels due to a "pressuring" sensation. She also states that she has now developed pain in her neck radiating into her left arm over the past 3 days as well. No weakness, numbness or tingling in her arms. Currently, she rates her discomfort as a 10/10 which worsens with attempts of movement and has not been relieved with ibuprofen or acetaminophen. The pain has also lead to nausea and vomiting. Due to her worsening symptoms, the patient contacted Dr. Mc's office and they referred her to the ED for further evaluation today. She otherwise denies fevers/chills, cough, chest pain, shortness of breath or abdominal pain. REVIEW OF SYSTEMS: 10 systems were reviewed and were negative unless otherwise stated in HPI as above PHYSICAL EXAM: VITALS: Vitals are noted on the nurse's note and reviewed by myself. Vital signs stable. General: Resting in bed, appears uncomfortable but no acute distress HEENT: Normocephalic/atraumatic, PERRL, EOMI, mucous membranes moist, oropharynx clear Neck: Tender to palpation along the midline cervical spine, ROM intact Resp: Good inspiratory effort on room air, lung sounds clear bilaterally CV: Regular rate and rhythm, peripheral pulses palpated Back: Tender to palpation along the midline mid-thoracic spine radiating down into the entire lumbar spine and across the bilateral lower back, no obvious step-offs or deformities Abd: Soft, non-tender MSK/Neuro: BUE non-tender to palpation with strength 5/5 and sensation intact bilaterally. BLE with tenderness to palpation along the entire legs and feet, notes numbness/tingling to the medial legs/feet but sensation intact on exam. Strength 5/5 to hip flexion/extension, knee flexion/extension and plantarflexion, 3/5 with dorsiflexion. Integumentary: No appreciable skin changes or rash Differential diagnosis includes cauda equina syndrome, conus medullaris, spinal cord compression syndrome, peripheral nerve compression, fractures or subluxations, intra-abdominal pathology such as abdominal aortic aneurysm or kidney stones, muscle strain, transverse myelitis, spinal cord injury. EMERGENCY DEPARTMENT COURSE: Physical exam and history were performed. Nursing triage notes, EMR, and medication list were personally reviewed. Vital signs were reviewed and were stable. Patient appears to have worsening pain to her bilateral lower back radiating to her legs with associated numbness/tingling and weakness which was exacerbated 2 weeks prior to arrival. Of note, she does have history of degenerative disc disease status post multiple lumbar spinal surgeries with Dr. Mc. She recently had an MRI of her lumbar spine 10 days ago for surgical planning and did have surgery planned for April 2021. Due to her worsening symptoms, the patient did contact Dr. Mc's office this afternoon and was referred to the emergency department for further evaluation. Please see exam as above. The patient was offered medication. IV access was established and she was given IV Dilaudid 1 mg, Decadron 10 mg and Zofran 4 mg. I did contact Dr. Mc of orthopedic spine. He requested to obtain a CAT scan of the lumbar spine and agreed to admit the patient to his service for further management. Upon reevaluation, the patient was feeling improved after receiving the medications. I updated her on my discussion with Dr. Mc and his plans to admit her to the hospital for further management. She verbalized her understanding and agreement with this treatment plan. The chart was completed utilizing [employer] Speech Voice Recognition Software. Grammatical errors, random word insertions, pronoun errors, and incomplete sentences are an occasional consequence of this system due to software limitations, ambient noise, and hardware issues. Any formal questions or concerns about the content, text, or information contained within the body of this dictation should be directly addressed to the provider for clarification. Attending Attestation: Lakia George MD independently saw and evaluated this patient and agree wit h history and physical is otherwise documented by the physician television production assistant. See their note for full details. Patient tearful in bed with worsened pain after CT scan Additional meds ordered. She feels gross touch in the legs but endorses bilateral toe numbness. Patient known to Dr. Mc of ortho spine who will admit for further care. Past Med/Surg History Medical History (Updated 12/25/20 @ 17:33 by Jackie Baum PA-C) Chronic back pain Degenerative disc disease Fibromyalgia GERD (gastroesophageal reflux disease) H/O difficult intubation 11/05/13 - Glidescope #4, ETT #7.0, Atraumatic, GS x 1 without difficulty. Hiatal hernia Osteoarthritis Surgical History (Updated 12/25/20 @ 17:42 by Ashley Koenig PA-C) Fusion of spine L4-L5, L5-S1. 11/05/13: Glidescope #4, ETT #7.0, Atraumatic, GS x 1 without difficulty. History of bilateral tubal ligation History of carpal tunnel release RIGHT - REMOVED CYST FROM RIGHT HAND AT SAME TIME History of section History of colonoscopy History of dilatation and curettage History of esophagogastroduodenoscopy (EGD) History of hysterectomy VALENCIA WITH RSO History of left knee replacement History of tonsillectomy History of tooth extraction Spinal cord stimulator status PLACED 2016, REMOVED 2017 Family History (Updated 04/18/18 @ 11:37 by Frida Haider RN) Father Family history of diabetes mellitus Grandfather (Paternal) Family history of diabetes mellitus Grandmother (Paternal) Family history of diabetes mellitus Social History (Updated 12/25/20 @ 17:43 by Ashley Koenig PA-C) Smoking Status: Current every day smoker Tobacco Type: Cigarettes Cigarettes Per Day: 5 cig/day; Second Hand Exposure: No; Hx Alcohol Use: Yes Hx Substance Use: No Preferred Language: Jordanian Communication Ability: Effective Coffee Maker Servicer Required: No Beliefs That Will Affect Care: None marital status: Current Living Situation: Spouse Other Information That Helps Us Care for You: No Feels Safe at Home: Yes Safety Concerns: Feels Safe At This Time Assistive Devices: Denture - Upper, Denture - Lower and Glasses Assistive Devices Comment: dentures at home Allergies Allergies Allergy/AdvReac Type Severity Reaction Status Date / Time No Known Drug Allergies Allergy Unknown NONE Verified 12/25/20 14:23 Home Meds Home Medications Medication Instructions Recorded Confirmed dexlansoprazole 60 mg 60 mg PO HS 04/18/18 12/25/20 capsule,biphase delayed release (Dexilant) atorvastatin 10 mg tablet 10 mg PO HS 12/25/20 12/25/20 cetirizine 10 mg tablet (Zyrtec) 10 mg PO HS 12/25/20 12/25/20 montelukast 10 mg tablet 10 mg PO HS 12/25/20 12/25/20 ondansetron HCl 4 mg tablet 4 mg PO Q6H PRN 12/25/20 12/25/20 (Zofran) pramipexole 0.5 mg tablet 0.5 mg PO HS 12/25/20 12/25/20 sumatriptan succinate 6 mg/0.5 mL 6 mg SUBCUT DAILY PRN 12/25/20 12/25/20 subcutaneous pen injector Results & Data (ED) Vital Signs Vital Signs - 24 hr 12/25/20 10:39 12/25/20 12:56 Temperature 36.9 C Temperature Source Temporal Artery Scan Pulse Rate 86 Pulse Rate [Left Foot] 82 Pulse Rhythm Regular Pulse Strength Normal Respiratory Rate 20 20 Respiratory Effort / Characteristics Non-Labored Spontaneous Non-Labored Respiratory Depth Normal Respiratory Pattern Regular Blood Pressure 156/112 H Blood Pressure [Left Arm] 154/99 H Blood Pressure Mean 126 Blood Pressure Mean [Left Arm] 117 Pulse Oximetry 97 95 Oxygen Delivery Method Room Air Room Air Sepsis Recent Fever Within 48 Hours No Sepsis New/Unexplained Change in Mental Status No Sepsis Action Taken by Nursing No Action Required Laboratory Data Result diagrams: 12/25/20 11:58 12/25/20 11:58 Lab Results 12/25/20 12/25/20 12/25/20 Range/Units 11:54 11:58 11:58 WBC 10.38 (4.8-10.8) K/uL RBC 4.51 (4.2-5.4) M/uL Hgb 14.4 (12.0-16.0) g/dL Hct 43.5 (37-47) % MCV 96.5 (80-100) fL MCH 31.9 (25-34) pg MCHC 33.1 (32-36) g/dL RDW Std Deviation 46.3 (36.4-46.3) fL RDW Coeff of Kaia 13.2 (11.5-14.5) % Plt Count 180 (130-400) K/uL MPV 12.6 H (7.4-10.4) fL Immature Gran % (Auto) 0.2 % Neut % (Auto) 57.3 % Lymph % (Auto) 27.9 % [place] % (Auto) 8.2 % Eos % (Auto) 5.6 % Baso % (Auto) 0.8 % Neut # (Auto) 5.95 (1.4-6.5) K/uL Lymph # (Auto) 2.90 (1.2-3.4) K/uL [place] # (Auto) 0.85 H (0.11-0.59) K/uL Eos # (Auto) 0.58 H (0-0.5) K/uL Baso # (Auto) 0.08 (0-0.2) K/uL Immature Gran # (Auto) 0.02 (0.00-0.02) K/uL Sodium 141 (136-145) mmol/L Potassium 4.0 (3.5-5.1) mmol/L Chloride 110 H (98-107) mmol/L Carbon Dioxide 25 (21-32) mmol/L Anion Gap 6.0 (3-11) BUN 10 (7-18) mg/dl Creatinine 0.89 (0.6-1.2) mg/dl Est Cr Clr Drug Dosing 93.7 ml/min Est GFR ( Amer) 90.1 ml/min Est GFR (Non-Af Amer) 77.7 ml/min BUN/Creatinine Ratio 11.0 (10-20) Glucose 90 (70-99) mg/dl Calcium 8.6 (8.5-10.1) mg/dl Total Bilirubin 0.4 (0.2-1) mg/dl AST 16 (15-37) U/L ALT 29 (12-78) U/L Alkaline Phosphatase 90 (45-117) U/L Total Protein 7.1 (6.4-8.2) gm/dl Albumin 3.6 (3.4-5.0) gm/dl Globulin 3.5 (2.5-4.0) gm/dl Albumin/Globulin Ratio 1.0 (0.9-2) Specimen Hemolysis Urine Color Yellow Urine Appearance Clear (Clear) Urine pH 7.5 (4.5-7.5) Ur Specific [place] 1.020 (1.000-1.030) Urine Protein Negative (Negative) Urine Glucose (UA) Negative (Negative) Urine Ketones Negative (Negative) Urine Blood Negative (Negative) Urine Nitrite Negative (Negative) Urine Bilirubin Negative (Negative) Urine Urobilinogen Negative (Negative) Ur Leukocyte Esterase Negative (Negative) Administered Medications Hydromorphone HCl (Hydromorphone Inj 1 Mg/Ml Syringe) 1 mg IV Q3H PRN PRN Reason: severe pain (scale 7-10) Stop: 01/08/21 16:08 Last Admin: 12/25/20 17:29 Dose: 1 mg Documented by: [id number] Lactated Ringer's (Lr) 1,000 mls @ 100 mls/hr IV .Q10H ELVIA Stop: 01/24/21 16:08 Last Admin: 12/25/20 17:29 Dose: 100 mls/hr Documented by: [id number] Discontinued Medications Dexamethasone Sodium Phosphate (DexamethasonePf 10 Mg/Ml Vial) 10 mg IV NOW ONE Stop: 12/25/20 13:15 Last Admin: 12/25/20 13:35 Dose: 10 mg Documented by: [id number] Hydromorphone HCl (Hydromorphone Inj 1 Mg/Ml Syringe) 1 mg IV NOW STA Stop: 12/25/20 13:15 Last Admin: 12/25/20 13:35 Dose: 1 mg Documented by: [id number] Hydromorphone HCl (Hydromorphone Inj 1 Mg/Ml Syringe) 1 mg IV NOW STA Stop: 12/25/20 14:13 Last Admin: 12/25/20 14:22 Dose: 1 mg Documented by: [id number] Ondansetron HCl (Zofran) 8 mg in 54 mls @ 216 mls/hr IV NOW STA Stop: 12/25/20 13:28 Last Infusion: 12/25/20 14:07 Dose: 0 mls/hr Documented by: [id number] Admin: 12/25/20 13:36 Dose: 216 mls/hr Documented by: [id number] Ondansetron HCl (Ondansetron Inj 2 Mg/Ml 2 Ml Vial) 4 mg IV NOW STA Stop: 12/25/20 14:15 Last Admin: 12/25/20 14:22 Dose: 4 mg Documented by: [id number] Imaging Data Radiologist's Impression: Lumbar Spine CT 12/25/20 13:39 CT lumbar spine wo con HISTORY: 45 years-old Female lumbar radiculopathy acute severe low back pain with radicular symptoms and prior surgery. COMPARISON: Fluoroscopic images of the lumbar spine 05/10/2018 TECHNIQUE: Multiple axial CT images of the lumbar spine were obtained without the use of IV contrast. A dose lowering technique was used consistent with the principals of ALARA. FINDINGS: Laminectomy changes at L3-S1. Posterior interbody jairo and screw fusion at L3-L4 with pedicle screws at L5. L3-L4 and L4-L5 discectomy changes. No evidence of hardware fracture or loosening. There is fusion of the lower lumbar facets without significant bony fusion of the L3-L5 vertebral bodies. Small posterior disc osteophyte complex at L5-S1. No acute fracture, subluxation or endplate erosion. Transitional lumbosacral anatomy with partial sacralization of the L5 segment. Evaluation of the central canal and neural foramina is better assessed by MRI. Streak artifact from hardware limits evaluation of the adjacent structures. IMPRESSION: 1. No acute fracture or subluxation. 2. Postoperative changes as above. No evidence of hardware complication. ACT 112: Negative or not required by law. The above report was generated using voice recognition software. It may contain grammatical, syntax or spelling errors. Electronically signed by: Edil Whatley M.D. 12/25/2020 2:19 PM Discharge Plan Visit Data Chief Complaint: Back Injury/Pain Stated Complaint: SEVERE BACK PAIN ED Provider: Jarrett George ED Midlevel Provider: Jackie Baum Discharge Problem: Lumbar radiculopathy Patient Disposition: Admitted As Inpatient Discharge Instructions Interventions: ED Discharge Assessment Last Done: 12/25/20 15:39
[2020-12-25] MEDS ORDERED: ONDANSETRON INJ 2 MG/ML 2 ML VIAL IV STA (14:14)
--- NOTE | 2020-12-25 14:20 | CT Scan Report ---
CT lumbar spine wo con HISTORY: 45 years-old Female lumbar radiculopathy acute severe low back pain with radicular symptoms and prior surgery. COMPARISON: Fluoroscopic images of the lumbar spine 05/10/2018 TECHNIQUE: Multiple axial CT images of the lumbar spine were obtained without the use of IV contrast. A dose lowering technique was used consistent with the principals of ALARA. FINDINGS: Laminectomy changes at L3-S1. Posterior interbody jairo and screw fusion at L3-L4 with pedicle screws a t L5. L3-L4 and L4-L5 discectomy changes. No evidence of hardware fracture or loosening. There is fus ion of the lower lumbar facets without significant bony fusion of the L3-L5 vertebral bodies. Small p osterior disc osteophyte complex at L5-S1. No acute fracture, subluxation or endplate erosion. Transi tional lumbosacral anatomy with partial sacralization of the L5 segment. Evaluation of the central ca nal and neural foramina is better assessed by MRI. Streak artifact from hardware limits evaluation of the adjacent structures. IMPRESSION: 1. No acute fracture or subluxation. 2. Postoperative changes as above. No evidence of hardware complication. ACT 112: Negative or not required by law. The above report was generated using voice recognition software. It may contain grammatical, syntax o r spelling errors. Electronically signed by: Edil Whatley M.D. 12/25/2020 2:19 PM
[2020-12-25] MEDS ORDERED: diphenhydrAMINE Capsule 25 MG CAP PO PRN (16:09)
[2020-12-25] MEDS ORDERED: METOCLOPRAMIDE HCL INJ 5 MG/ML 2 ML VIAL IV PRN (16:09)
[2020-12-25] MEDS ORDERED: NALOXONE HCL 0.4 MG/1 ML VIAL/CARP IV PRN (16:09)
[2020-12-25] MEDS ORDERED: ONDANSETRON 4 MG OD TAB PO PRN (16:09)
[2020-12-25] MEDS ORDERED: ALUMINUM/MAGNESIUM SUSP 30 ML UDC PO PRN (16:09)
[2020-12-25] MEDS ORDERED: PROMETHAZINE HCL 12.5 MG in SODIUM CHLORIDE 0.9% 50 ML IV PRN (16:09)
[2020-12-25] MEDS ORDERED: MAGNESIUM HYDROXIDE SUSP 30 ML UDC PO PRN (16:09)
[2020-12-25] MEDS ORDERED: LORazepam 0.5 MG/1 ML VIAL IV PRN (16:09)
[2020-12-25] MEDS ORDERED: LORazepam 0.5 MG TAB PO PRN (16:09)
[2020-12-25] MEDS ORDERED: hydrOXYzine HCl 25 MG TAB PO PRN (16:09)
[2020-12-25] MEDS ORDERED: SOD PHOSPHATE/SOD BIPHOSPHATE ENEMA 132 ML BTL PR PRN (16:09)
[2020-12-25] MEDS ORDERED: ACETAMINOPHEN 1,000 MG/100 ML VIAL IV PRN (16:09)
[2020-12-25] MEDS ORDERED: HYDROmorphone INJ 0.5 MG/0.5 ML SYR IV PRN (16:09)
[2020-12-25] MEDS: LACTATED RINGER'S 1,000 ML IV SCH (17:29)
[2020-12-25] MEDS: HYDROmorphone INJ 1 MG/ML SYRINGE IV PRN ×2 (17:29→22:02)
--- NOTE | 2020-12-25 17:46 | Hospitalist Consultation ---
Date of Consultation December 25, 2020 Assessment & Plan (1) Neurogenic claudication due to lumbar spinal stenosis: Defer management to primary service (2) Lumbar radiculopathy: See #1 (3) GERD (gastroesophageal reflux disease): Continue PPI (4) Allergic asthma: Add prn albuterol inhaler Continue montelukast and cetirizine (5) Dyslipidemia: Continue statin (6) Migraine: Not currently an issue - has used sumitriptan prn previously (7) Restless leg syndrome: - Continue pramipexole Pt seen and reviewed with collaborating physician, Dr. Love. Plan of care discussed and as outlined above. No additional work-up needed from a medical perspective prior to operative intervention if required. We will continue to follow the patient with you. A member of the [facility]ist team is available 30/08 via [employer]. Please do not hesitate to call with questions. Ray Koenig PA-C Supervising Physician Co-Signing Physician Notes Patient is a 45-year-old female with history of dyslipidemia, chronic lower back pain, allergic asthma, ongoing tobacco use disorder and other medical problems presents with history of worsening lower back pain associated with ambulatory dysfunction, bilateral toe numbness, groin numbness. Please review HPI for complete details of presentation. She denies any chest pain, shortness of breath, dizziness, nausea, abdominal pain. Patient is consulted for medical management and is planned for lumbar surgery by Dr. Mc tomorrow. Physical Exam: Vitals signs as noted above General Appearance:Morbidly Obese, no apparent distress Head: normocephalic, Atraumatic Eyes: normal inspection, EOMI Neck: supple, Trachea midline Respiratory/Chest: Normal breath sounds, CTA, No accessory muscle use Cardiovascular: S1, S2, No murmur Abdomen/GI:Soft, Non tender, Bowel sounds present Back+ + Lower back tenderness Extremities/Musculoskeletal:normal inspection, no edema Neurologic/Psych:AAOX3, grossly no focal neurological deficits Skin: normal color, warm Lumbar spinal stenosis with neurogenic claudication Pain control Bowel regimen to prevent constipation Plan for lumbar surgery by orthopedics Ongoing tobacco use Counseled to quit smoking Nicotine patch I personally reviewed the record. Patient is interviewed and examined at bedside. Patient's care is coordinated with Ashley Koenig PA-C. Please refer to the documentation above for details of patient's presentation and for discussion of other issues. History of Present Illness Reason for Consultation: Medical management Requesting Physician: Dr. Luke Freeman Attending Physician: Luke Mc, DO History of Present Illness This is a 45 y/o female with a PMH of chronic back pain, DDD, dyslipidemia, RLS, migraines, allergic asthma, and GERD who noted worsening of her chronic back issues two weeks ago so she called the orthopedic office to be evaluated for ESIs. She reports that the pain management physician sent her for an MRI. After they reviewed the results, she was recommended to see Dr. Mc for surgical intervention. Her back issues initially start in 2006 after a fall, and she repots multiple back surgeries since then, most recent in 2019. She rates this current episode of pain as severe. Currently she has bilateral toe numbness, which she has had with previous flares of pain, and now numbness in bilateral groin, which is new for her. Over the past two weeks she has been having trouble walking - uses a cane at home to help ambulate. Pain is worse with standing, walking, bending over. She describes it as feeling like hardware is applying pressure from inside. Her chronic sacral numbness is unchanged. Has noticed new urinary frequency and dribbling for past two weeks but no karina incontinence. No incontinence of stool. Two days ago started with neck pain - may have associated ANDRADE. She reports that this has happened with flares of back pain previously. Due to the rapid progression of her symptoms, she was referred to the ED today and ultimately for admission. We have been consulted to assist with medical management. She currently rates pain as 8/10 but just had pain meds. She denies fevers, chills, chest pain, SOB, N/V/D. When back pain is severe, she has heart palpitations/racing sensation but attributes to the pain. She has not been vaccinated for COVID. She did have flu vaccine this year. Of note, she recently completed a course of prednisone for shoulder issues. No recent breathing issues related to allergic asthma. Allergies Allergy/AdvReac Type Severity Reaction Status Date / Time No Known Drug Allergies Allergy Unknown NONE Verified 12/25/20 14:23 Home Medications Medication Instructions Recorded Confirmed Type dexlansoprazole 60 mg 60 mg PO HS 04/18/18 12/25/20 History capsule,biphase delayed release (Dexilant) atorvastatin 10 mg tablet 10 mg PO HS 12/25/20 12/25/20 History cetirizine 10 mg tablet (Zyrtec) 10 mg PO HS 12/25/20 12/25/20 History montelukast 10 mg tablet 10 mg PO HS 12/25/20 12/25/20 History ondansetron HCl 4 mg tablet 4 mg PO Q6H PRN 12/25/20 12/25/20 History (Zofran) pramipexole 0.5 mg tablet 0.5 mg PO HS 12/25/20 12/25/20 History sumatriptan succinate 6 mg/0.5 mL 6 mg SUBCUT DAILY PRN 12/25/20 12/25/20 History subcutaneous pen injector Patient History Medical History Allergic asthma Chronic back pain Degenerative disc disease Dyslipidemia Fibromyalgia GERD (gastroesophageal reflux disease) H/O difficult intubation 11/05/13 - Glidescope #4, ETT #7.0, Atraumatic, GS x 1 without difficulty. Hiatal hernia Migraine Osteoarthritis Restless leg syndrome Surgical History Fusion of spine L4-L5, L5-S1. 11/05/13: Glidescope #4, ETT #7.0, Atraumatic, GS x 1 without difficulty. History of bilateral tubal ligation History of carpal tunnel release RIGHT - REMOVED CYST FROM RIGHT HAND AT SAME TIME History of section History of colonoscopy History of dilatation and curettage History of esophagogastroduodenoscopy (EGD) History of hysterectomy VALENCIA WITH RSO History of left knee replacement History of tonsillectomy History of tooth extraction Spinal cord stimulator status PLACED 2016, REMOVED 2017 Family History Father Family history of diabetes mellitus Grandfather (Paternal) Family history of diabetes mellitus Grandmother (Paternal) Family history of diabetes mellitus Social History Smoking Status: Current every day smoker Tobacco Type: Cigarettes Cigarettes Per Day: 5 cig/day; Second Hand Exposure: No; Hx Alcohol Use: Yes Hx Substance Use: No Preferred Language: Maltese Communication Ability: Effective Account Services Associate Required: No Beliefs That Will Affect Care: None marital status: Current Living Situation: Spouse Other Information That Helps Us Care for You: No Feels Safe at Home: Yes Safety Concerns: Feels Safe At This Time Assistive Devices: Denture - Upper, Denture - Lower and Glasses Assistive Devices Comment: dentures at home Review of Systems Review of Systems: All systems reviewed & are unremarkable except as noted in HPI & below Constitutional: + fatigue; no fever and no sweats Eyes: no diplopia and no worsening vision Respiratory: no cough, no dyspnea and no wheezing Cardiovascular: + palpitations; no chest pain, no syncope and no edema Gastrointestinal: no abdominal pain, no nausea, no vomiting and no diarrhea/loose stools Genitourinary: + urinary frequency and + post-void dribbling Musculoskeletal: + back pain, + neck pain and + radicular pain Integumentary: no rash and no yellowing of the skin Neurologic: + unsteadiness, + loss of sensation and + numbness Physical Exam Constitutional: + obese; no acute distress Eyes: + anicteric sclerae Neck: trachea midline Respiratory: no respiratory distress and no labored breathing Auscultation: lungs clear to auscultation bilaterally; no rales, no rhonchi and no wheezes Cardiovascular: Rate/Rhythm: regular rate and regular rhythm Heart Sounds: no gallop, no murmur and no cardiac rub Vessels: dorsalis pedis pulses present and radial pulses present Extremities: no pedal edema Gastrointestinal (Abdomen): Inspection/Auscultation: normal bowel sounds Percussion/Palpation: abdomen soft Neurologic: moves all extremities; no focal motor deficits Motor/Sensory: + sensory deficit (mildly diminished sensation in the L5/S1 dermatomes) Psychiatric: A+Ox3, euthymic affect Results & Data Results & Data ([facility]) Vital Signs (Past 12 Hours) Vital Signs Temp Pulse Pulse Pulse Resp BP BP 12/25/20 17:16 36.4 C L 80 20 151/84 H 12/25/20 15:39 36.8 C 84 18 142/84 H 12/25/20 12:56 82 20 154/99 H 12/25/20 10:39 36.9 C 86 20 156/112 H Pulse Ox 12/25/20 17:16 93 12/25/20 15:39 97 12/25/20 12:56 95 12/25/20 10:39 97 Laboratory Results Laboratory Results - last 24 hr 12/25/20 12/25/20 12/25/20 11:54 11:58 11:58 WBC 10.38 RBC 4.51 Hgb 14.4 Hct 43.5 MCV 96.5 MCH 31.9 MCHC 33.1 RDW Std Deviation 46.3 RDW Coeff of Kaia 13.2 Plt Count 180 MPV 12.6 H Immature Gran % (Auto) 0.2 Neut % (Auto) 57.3 Lymph % (Auto) 27.9 [place] % (Auto) 8.2 Eos % (Auto) 5.6 Baso % (Auto) 0.8 Neut # (Auto) 5.95 Lymph # (Auto) 2.90 [place] # (Auto) 0.85 H Eos # (Auto) 0.58 H Baso # (Auto) 0.08 Immature Gran # (Auto) 0.02 Sodium 141 Potassium 4.0 Chloride 110 H Carbon Dioxide 25 Anion Gap 6.0 BUN 10 Creatinine 0.89 Est Cr Clr Drug Dosing 93.7 Est GFR ( Amer) 90.1 Est GFR (Non-Af Amer) 77.7 BUN/Creatinine Ratio 11.0 Glucose 90 Calcium 8.6 Total Bilirubin 0.4 AST 16 ALT 29 Alkaline Phosphatase 90 Total Protein 7.1 Albumin 3.6 Globulin 3.5 Albumin/Globulin Ratio 1.0 Specimen Hemolysis Urine Color Yellow Urine Appearance Clear Urine pH 7.5 Ur Specific Hilbert 1.020 Urine Protein Negative Urine Glucose (UA) Negative Urine Ketones Negative Urine Blood Negative Urine Nitrite Negative Urine Bilirubin Negative Urine Urobilinogen Negative Ur Leukocyte Esterase Negative COVID-19 Eval Order SARS-CoV-2, RNA, NAAT 12/25/20 12/25/20 14:05 14:05 WBC RBC Hgb Hct MCV MCH MCHC RDW Std Deviation RDW Coeff of Kaia Plt Count MPV Immature Gran % (Auto) Neut % (Auto) Lymph % (Auto) [place] % (Auto) Eos % (Auto) Baso % (Auto) Neut # (Auto) Lymph # (Auto) [place] # (Auto) Eos # (Auto) Baso # (Auto) Immature Gran # (Auto) Sodium Potassium Chloride Carbon Dioxide Anion Gap BUN Creatinine Est Cr Clr Drug Dosing Est GFR ( Amer) Est GFR (Non-Af Amer) BUN/Creatinine Ratio Glucose Calcium Total Bilirubin AST ALT Alkaline Phosphatase Total Protein Albumin Globulin Albumin/Globulin Ratio Specimen Hemolysis Urine Color Urine Appearance Urine pH Ur Specific Hilbert Urine Protein Urine Glucose (UA) Urine Ketones Urine Blood Urine Nitrite Urine Bilirubin Urine Urobilinogen Ur Leukocyte Esterase COVID-19 Eval [facility] SARS-CoV-2, RNA, NAAT NEGATIVE Diagnostic Findings CT lumbar spine 12/25/20 - IMPRESSION: 1. No acute fracture or subluxation. 2. Postoperative changes as above. No evidence of hardware complication. Medications Administered Acetaminophen (Acetaminophen 500 Mg Tab) 1,000 mg PO Q8H PRN PRN Reason: MILD Pain Scale 1,2,3 & Pre PT Stop: 01/24/21 16:08 Last Admin: 12/25/20 20:05 Dose: 1,000 mg Documented by: [id number] Hydromorphone HCl (Hydromorphone Inj 1 Mg/Ml Syringe) 1 mg IV Q3H PRN PRN Reason: severe pain (scale 7-10) Stop: 01/08/21 16:08 Last Admin: 12/25/20 17:29 Dose: 1 mg Documented by: [id number] Lactated Ringer's (Lr) 1,000 mls @ 100 mls/hr IV .Q10H ELVIA Stop: 01/24/21 16:08 Last Infusion: 12/25/20 20:08 Dose: 100 mls/hr Documented by: [id number] Infusion: 12/25/20 19:40 Dose: 0 mls/hr Documented by: [id number] Admin: 12/25/20 17:29 Dose: 100 mls/hr Documented by: [id number] Oxycodone HCl (Oxycodone Hcl Ir 5 Mg Tab (Immediate Release)) 5 - 10 mg PO Q4H PRN PRN Reason: mod to severe pain Stop: 01/08/21 16:08 Last Admin: 12/25/20 18:25 Dose: 10 mg Documented by: [id number] Discontinued Medications Dexamethasone Sodium Phosphate (DexamethasonePf 10 Mg/Ml Vial) 10 mg IV NOW ONE Stop: 12/25/20 13:15 Last Admin: 12/25/20 13:35 Dose: 10 mg Documented by: [id number] Hydromorphone HCl (Hydromorphone Inj 1 Mg/Ml Syringe) 1 mg IV NOW STA Stop: 12/25/20 13:15 Last Admin: 12/25/20 13:35 Dose: 1 mg Documented by: [id number] Hydromorphone HCl (Hydromorphone Inj 1 Mg/Ml Syringe) 1 mg IV NOW STA Stop: 12/25/20 14:13 Last Admin: 12/25/20 14:22 Dose: 1 mg Documented by: [id number] Ondansetron HCl (Zofran) 8 mg in 54 mls @ 216 mls/hr IV NOW STA Stop: 12/25/20 13:28 Last Infusion: 12/25/20 14:07 Dose: 0 mls/hr Documented by: [id number] Admin: 12/25/20 13:36 Dose: 216 mls/hr Documented by: [id number] Ondansetron HCl (Ondansetron Inj 2 Mg/Ml 2 Ml Vial) 4 mg IV NOW STA Stop: 12/25/20 14:15 Last Admin: 12/25/20 14:22 Dose: 4 mg Documented by: [id number]
[2020-12-25] MEDS: oxyCODONE HCL IR 5 MG TAB (IMMEDIATE RELEASE) PO PRN (18:25)
--- NOTE | 2020-12-25 19:34 | History & Physical Report ---
Date of Service December 25, 2020 Assessment & Plan (1) Neurogenic claudication due to lumbar spinal stenosis: Plan: Patient does have a CAT scan performed today demonstrates fusion at L4-5 L5-L6 there is a lumbarized segment distally. This area is stable. There is evidence of retrolisthesis and facet hypertrophy appreciated at L2-3 L3-L4. Previous MRI done on 12/15/2020 available for review also demonstrates advanced stenosis at the L3-L4 level. At this time I suspect she is struggling with adjacent level stenosis radiculopathy affecting the upper roots of the lumbar spine. Would like to obtain further x-rays and we may need to consider extension of the f usion to at least L3-L4 possibly L2-L3 level. Admission and Anticipated Discharge Date Admission Date: December 25, 2020 History of Present Illness Chief Complaint: Severe back and bilateral leg pain Primary Care Provider: Justin Olmstead This is a 45-year-old female who presents to the emergency room today with marked clotting status. She is known to us from previous surgery in the past. She states that over the past several weeks she is experiencing worsening pain at the lumbosacral junction of the buttocks from her groins down her anterior thighs into her feet. Markedly exacerbated with sitting and particularly standing. She obtains relief only with lying supine. She has seen interventional pain management in the past month and they have declined any injection secondary to her severe symptoms. At this time she denies any loss of bowel bladder control. She is unable to maintain activities of daily living secondary to pain. Allergies Allergy/AdvReac Type Severity Reaction Status Date / Time No Known Drug Allergies Allergy Unknown NONE Verified 12/25/20 14:23 Home Medications Medication Instructions Recorded Confirmed Type dexlansoprazole 60 mg 60 mg PO HS 04/18/18 12/25/20 History capsule,biphase delayed release (Dexilant) atorvastatin 10 mg tablet 10 mg PO HS 12/25/20 12/25/20 History cetirizine 10 mg tablet (Zyrtec) 10 mg PO HS 12/25/20 12/25/20 History montelukast 10 mg tablet 10 mg PO HS 12/25/20 12/25/20 History ondansetron HCl 4 mg tablet 4 mg PO Q6H PRN 12/25/20 12/25/20 History (Zofran) pramipexole 0.5 mg tablet 0.5 mg PO HS 12/25/20 12/25/20 History sumatriptan succinate 6 mg/0.5 mL 6 mg SUBCUT DAILY PRN 12/25/20 12/25/20 History subcutaneous pen injector Past Med/Surg History Medical History (Updated 12/25/20 @ 19:33 by Luke Mc DO) Chronic back pain Degenerative disc disease Fibromyalgia GERD (gastroesophageal reflux disease) H/O difficult intubation 11/05/13 - Glidescope #4, ETT #7.0, Atraumatic, GS x 1 without difficulty. Hiatal hernia Osteoarthritis Surgical History (Updated 12/25/20 @ 17:42 by Ashley Koenig PA-C) Fusion of spine L4-L5, L5-S1. 11/05/13: Glidescope #4, ETT #7.0, Atraumatic, GS x 1 without difficulty. History of bilateral tubal ligation History of carpal tunnel release RIGHT - REMOVED CYST FROM RIGHT HAND AT SAME TIME History of section History of colonoscopy History of dilatation and curettage History of esophagogastroduodenoscopy (EGD) History of hysterectomy VALENCIA WITH RSO History of left knee replacement History of tonsillectomy History of tooth extraction Spinal cord stimulator status PLACED 2016, REMOVED 2017 Family History (Updated 04/18/18 @ 11:37 by Frida Haider RN) Father Family history of diabetes mellitus Grandfather (Paternal) Family history of diabetes mellitus Grandmother (Paternal) Family history of diabetes mellitus Social History (Updated 12/25/20 @ 17:43 by Ashley Koenig PA-C) Smoking Status: Current every day smoker Tobacco Type: Cigarettes Cigarettes Per Day: 5 cig/day; Second Hand Exposure: No; Hx Alcohol Use: Yes Hx Substance Use: No Preferred Language: Hebrew Communication Ability: Effective Cyber Intelligence Analyst Required: No Beliefs That Will Affect Care: None marital status: Current Living Situation: Spouse Other Information That Helps Us Care for You: No Feels Safe at Home: Yes Safety Concerns: Feels Safe At This Time Assistive Devices: Denture - Upper, Denture - Lower and Glasses Assistive Devices Comment: dentures at home Physical Exam Physical Exam: On exam she is able to sit up at the side of the bed for me. Her lumbar incisions are well-healed. There is no erythema no drainage. There are some tenderness palpation of the paravertebral musculature. However when I have her stand she is unable to do so for approximately 15 to 20 seconds before she must sit down. Describes pain radiating into the groin and down her legs. She is in obvious distress. Bench exam but does demonstrate weakness with a 4- /5 bilateral quadriceps and dorsiflexion. Sensory appears to be symmetric and intact. Results & Data ([facility]) Vital Signs (Past 12 Hours) Vital Signs Temp Pulse Pulse Pulse Resp BP BP 12/25/20 17:16 36.4 C L 80 20 151/84 H 12/25/20 15:39 36.8 C 84 18 142/84 H 12/25/20 12:56 82 20 154/99 H 12/25/20 10:39 36.9 C 86 20 156/112 H Pulse Ox 12/25/20 17:16 93 12/25/20 15:39 97 12/25/20 12:56 95 12/25/20 10:39 97 Code Status & VTE Plan VTE Prophylaxis Plan VTE Prophylaxis will be ordered: Yes
[2020-12-25] MEDS: ACETAMINOPHEN 500 MG TAB PO PRN (20:05)
--- NOTE | 2020-12-25 20:17 | XRay Report ---
LUMBAR SPINE 2 VIEWS CLINICAL HISTORY: Low back pain. FINDINGS: Lateral views of the lumbar spine in the flexion and extension positions are correlated wit h CT of the lumbar spine dated 12/25/2020. The skeletal structures are well mineralized. There is no radiographic evidence of fracture or malalignment on these lateral views. Vertebral body height and a lignment are maintained. There is no evidence of induced bony subluxation on the flexion/extension vi ews. There is postoperative change from discectomy at L3-L4 and L4-L5 with laminectomy and posterior fusion at L3-L5. There is moderate disc space narrowing at L5-S1 with a posterior disc osteophyte com plex at this level. The remaining disc spaces are maintained. Small anterior osteophytes are seen thr oughout. IMPRESSION: 1. No acute bony abnormality is identified on these lateral projections. 2. No inducible bony subluxation is seen on the flexion/extension views. 3. Postoperative change as above. Electronically signed by: César Cristobal M.D. 12/25/2020 8:16 PM
[2020-12-25] MEDS ORDERED: ALBUTEROL HFA 8 GM INHALER INH PRN (20:53)
[2020-12-25] MEDS: ATORVASTATIN 10 MG TAB PO SCH (21:55)
[2020-12-25] MEDS: CETIRIZINE HCL 10 MG TABLET PO SCH (21:55)
[2020-12-25] MEDS: rOPINIRole HCL 1 MG TABLET PO SCH (21:56)
[2020-12-25] MEDS: TOPIRAMATE 50 MG TAB PO SCH (21:56)
[2020-12-25] MEDS: DULoxetine HCL 60 MG CAP PO SCH (21:56)
[2020-12-25] MEDS: PRAMIPEXOLE DIHYDROCHLO 0.5 MG TAB PO SCH (21:56)
[2020-12-25] MEDS: MONTELUKAST SODIUM 10 MG TABLET PO SCH (21:56)
[2020-12-26] MEDS: HYDROmorphone INJ 1 MG/ML SYRINGE IV PRN ×4 (02:37→20:43)
[2020-12-26] MEDS: LACTATED RINGER'S 1,000 ML IV SCH ×3 (02:40→22:13)
[2020-12-26] MEDS: NICOTINE 14 MG/24 HR PATCH TD SCH (07:31)
[2020-12-26] MEDS: PANTOprazole 40 MG TAB PO SCH (08:50)
[2020-12-26 09:15] LABS: Hematocrit (blood only) 40.5 % (37-47); Hemoglobin 13.7 g/dL (12.0-16.0); Mean Corpuscular Hemoglobin 31.9 pg (25-34); Mean Corpuscular Hgb Conc 33.8 g/dL (32-36); Mean Corpuscular Volume 94.4 fL (80-100); Mean Platelet Volume 12.7 fL (7.4-10.4); Platelet Count 186 K/uL (130-400); RDW Standard Deviation 45.2 fL (36.4-46.3); Red Blood Count 4.29 M/uL (4.2-5.4); White Blood Count 15.17 K/uL (4.8-10.8)
[2020-12-26 09:52] LABS: BUN Creatinine Ratio 14.9 (10-20); Calcium 8.8 mg/dl (8.5-10.1); Creatinine Clr Calc Pharmacy 102.9 ml/min; Est GFR (African American) 100.9 ml/min; Est GFR (Non-African American) 87.1 ml/min; Magnesium 2.1 mg/dl (1.8-2.4); Potassium 3.6 mmol/L (3.5-5.1)
--- NOTE | 2020-12-26 09:52 | Orthopedic Progress Note ---
Date of Service December 26, 2020 Assessment & Plan (1) Neurogenic claudication due to lumbar spinal stenosis: Plan: Standing flexion-extension lumbar x-rays were obtained. They demonstrate evidence of at least 4 mm of retrolisthesis on extension at the L3-L4 level compared to flexion. This is the region of concern when evaluating her MRI. I suspect her facet hypertrophy and retrolisthesis with activity creates enough neural compression to account for her symptom complex and presentation. At this time I would recommend a lumbar decompression and fusion L3-L4 with possible L2- L3. Risk benefits pros cons alternatives were outlined in detail. We will try to have surgery arranged and performed as soon as possible. Admission and Anticipated Discharge Date Admission Date: December 25, 2020 Subjective Patient continues to complain of severe back and bilateral leg pain with any standing and walking. She can only go a few steps before she must sit down. Physical Exam Physical Exam: Patient is in bed at this time. In bed she does have r easonable strength of plantarflexion dorsiflexion. Results & Data ([facility]) Vital Signs (Past 12 Hours) Vital Signs Temp Resp BP Pulse Ox 12/26/20 07:17 36.8 C 18 137/84 95
[2020-12-26] MEDS: oxyCODONE HCL IR 5 MG TAB (IMMEDIATE RELEASE) PO PRN ×2 (10:07→18:06)
--- NOTE | 2020-12-26 19:02 | Hospitalist Progress Note ---
Date of Service December 26, 2020 Assessment & Plan (1) Neurogenic claudication due to lumbar spinal stenosis: Plan: Defer management to primary service (2) Lumbar radiculopathy: Plan: Neurogenic claudication due to lumbar spinal stenosis Imaging studies suggestive of at least 4 mm of retrolisthesis on extension at the L3-L4 level compared to flexion per Ortho Needs lumbar decompression and fusion L3-L4 with possible L2-L3 Pain control Bowel regimen to prevent constipation Appreciate orthopedics help Leukocytosis Secondary to steroids Monitor Ongoing tobacco use Nicotine patch Counseled to quit (3) GERD (gastroesophageal reflux disease): Plan: Continue PPI (4) Allergic asthma: Plan: Add prn albuterol inhaler Continue montelukast and cetirizine (5) Dyslipidemia: Plan: Continue statin (6) Migraine: Plan: On sumitriptan prn (7) Restless leg syndrome: Plan: - Continue pramipexole Plan: DVT Px: SCDs for now Admission and Anticipated Discharge Date Admission Date: December 25, 2020 Subjective Patient is seen and examined at bedside States having significant lower back pain Also reports nausea but no vomiting Denies any chest pain, dyspnea, dizziness, abdominal pain Offers no other complaints Review of Systems Review of Systems: All systems reviewed & are unremarkable except as noted in Subjective Physical Exam Physical Exam: Physical Exam: Vitals signs as noted above General Appearance:Morbidly Obese, no apparent distress Head: normocephalic, Atraumatic Eyes: normal inspection, EOMI Neck: supple, Trachea midline Respiratory/Chest: Normal breath sounds, CTA, No accessory muscle use Cardiovascular: S1, S2, No murmur Abdomen/GI:Soft, Non tender, Bowel sounds present Back+ + Lower back tenderness Extremities/Musculoskeletal:normal inspection, no edema Neurologic/Psych:AAOX3, grossly no focal neurological deficits Skin: normal color, warm Results & Data Results & Data ([facility]) Vital Signs (Past 12 Hours) Vital Signs Temp Pulse Resp BP Pulse Ox 12/26/20 15:37 36.7 C 65 18 128/76 94 12/26/20 07:17 36.8 C 18 137/84 95 Laboratory Results Short CBC 12/26/20 Range/Units 08:50 WBC 15.17 H (4.8-10.8) K/uL Hgb 13.7 (12.0-16.0) g/dL Hct 40.5 (37-47) % Plt Count 186 (130-400) K/uL [facility] 12/26/20 08:50 Sodium 137 Potassium 3.6 Chloride 106 Carbon Dioxide 22 BUN 12 Creatinine 0.81 Glucose 121 H Calcium 8.8
[2020-12-26] MEDS: ONDANSETRON INJ 2 MG/ML 2 ML VIAL IV PRN (20:43)
[2020-12-26] MEDS: MONTELUKAST SODIUM 10 MG TABLET PO SCH (20:52)
[2020-12-26] MEDS: rOPINIRole HCL 1 MG TABLET PO SCH (20:52)
[2020-12-26] MEDS: TOPIRAMATE 50 MG TAB PO SCH (20:52)
[2020-12-26] MEDS: CETIRIZINE HCL 10 MG TABLET PO SCH (20:52)
[2020-12-26] MEDS: DULoxetine HCL 60 MG CAP PO SCH (20:52)
[2020-12-26] MEDS: ATORVASTATIN 10 MG TAB PO SCH (20:52)
[2020-12-26] MEDS: PRAMIPEXOLE DIHYDROCHLO 0.5 MG TAB PO SCH (20:52)
[2020-12-26] MEDS: DOCUSATE SODIUM/SENNA 50/8.6MG TAB PO SCH (22:08)
[2020-12-27] MEDS: oxyCODONE HCL IR 5 MG TAB (IMMEDIATE RELEASE) PO PRN ×3 (03:55→18:10)
[2020-12-27] MEDS: POLYETHYLENE (MIRALAX) 17 GM PACK PO PRN (05:23)
[2020-12-27 06:35] LABS: Hematocrit (blood only) 40.9 % (37-47); Hemoglobin 13.4 g/dL (12.0-16.0); Mean Corpuscular Hemoglobin 31.8 pg (25-34); Mean Corpuscular Hgb Conc 32.8 g/dL (32-36); Mean Corpuscular Volume 96.9 fL (80-100); Mean Platelet Volume 12.7 fL (7.4-10.4); Platelet Count 189 K/uL (130-400); RDW Coefficient of Variation 13.1 % (11.5-14.5); RDW Standard Deviation 46.7 fL (36.4-46.3); Red Blood Count 4.22 M/uL (4.2-5.4); White Blood Count 13.17 K/uL (4.8-10.8)
[2020-12-27] MEDS: HYDROmorphone INJ 1 MG/ML SYRINGE IV PRN ×4 (06:35→21:20)
[2020-12-27 07:12] LABS: Calcium 9.1 mg/dl (8.5-10.1); Creatinine Clr Calc Pharmacy 75.8 ml/min; Est GFR (African American) 69.7 ml/min; Est GFR (Non-African American) 60.2 ml/min; Potassium 3.3 mmol/L (3.5-5.1)
[2020-12-27] MEDS: PANTOprazole 40 MG TAB PO SCH (07:49)
[2020-12-27] MEDS: DOCUSATE SODIUM/SENNA 50/8.6MG TAB PO SCH (07:49)
[2020-12-27] MEDS: NICOTINE 14 MG/24 HR PATCH TD SCH (07:49)
[2020-12-27] MEDS: LACTATED RINGER'S 1,000 ML IV SCH ×2 (08:49→21:19)
--- NOTE | 2020-12-27 09:48 | Orthopedic Progress Note ---
Date of Service December 27, 2020 Assessment & Plan (1) Neurogenic claudication due to lumbar spinal stenosis: Plan: At this time we are planning for decompression fusion on Tuesday. All questions were addressed. Admission and Anticipated Discharge Date Admission Date: December 25, 2020 Subjective Patient continues to have back and bilateral leg pain with ambulation is comfortable at rest Physical Exam Physical Exam: Patient is in bed at this time. She has good testing strength lower extremities. Results & Data ([facility]) Vital Signs (Past 12 Hours) Vital Signs Temp Pulse Resp BP Pulse Ox 12/27/20 07:40 36.7 C 70 16 130/76 95 12/27/20 00:05 36.7 C 72 20 129/76 94
[2020-12-27] MEDS ORDERED: POTASSIUM CHLORIDE CRTAB 20 MEQ TABCR PO STA (12:44)
[2020-12-27] MEDS ORDERED: bisacodyL 10 MG SUPP PR PRN (13:39)
--- NOTE | 2020-12-27 21:18 | Hospitalist Progress Note ---
Date of Service December 27, 2020 Assessment & Plan (1) Neurogenic claudication due to lumbar spinal stenosis: Plan: Defer management to primary service (2) Lumbar radiculopathy: Plan: Neurogenic claudication due to lumbar spinal stenosis Imaging studies suggestive of at least 4 mm of retrolisthesis on extension at the L3-L4 level compared to flexion per Ortho Needs lumbar decompression and fusion L3-L4 with possible L2-L3 Pain control Bowel regimen to prevent constipation Appreciate orthopedics help Continue current management Plan for surgery on Tuesday Leukocytosis Secondary to steroids Monitor Ongoing tobacco use Nicotine patch Counseled to quit (3) GERD (gastroesophageal reflux disease): Plan: Continue PPI (4) Allergic asthma: Plan: Add prn albuterol inhaler Continue montelukast and cetirizine (5) Dyslipidemia: Plan: Continue statin (6) Migraine: Plan: On sumitriptan prn (7) Restless leg syndrome: Plan: - Continue pramipexole Plan: DVT Px: SCDs for now Admission and Anticipated Discharge Date Admission Date: December 25, 2020 Subjective Patient is seen and examined at bedside Continues to have lower back pain Denies any chest pain, shortness of breath, dizziness, nausea, abdominal pain No new complaints Likely plan for surgery on Tuesday Review of Systems Review of Systems: All systems reviewed & are unremarkable except as noted in Subjective Physical Exam Physical Exam: Physical Exam: Vitals signs as noted above General Appearance:Morbidly Obese, no apparent distress Head: normocephalic, Atraumatic Eyes: normal inspection, EOMI Neck: supple, Trachea midline Respiratory/Chest: Normal breath sounds, CTA, No accessory muscle use Cardiovascular: S1, S2, No murmur Abdomen/GI:Soft, Non tender, Bowel sounds present Back+ + Lower back tenderness Extremities/Musculoskeletal:normal inspection, no edema Neurologic/Psych:AAOX3, grossly no focal neurological deficits Skin: normal color, warm Results & Data Results & Data ([facility]) Vital Signs (Past 12 Hours) Vital Signs Temp Pulse Resp BP Pulse Ox 12/27/20 18:14 36.3 C L 78 18 122/88 96 12/27/20 14:32 36.7 C 67 16 136/82 97 Laboratory Results Short CBC 12/27/20 Range/Units 05:48 WBC 13.17 H (4.8-10.8) K/uL Hgb 13.4 (12.0-16.0) g/dL Hct 40.9 (37-47) % Plt Count 189 (130-400) K/uL BMP 12/27/20 05:48 Sodium 136 Potassium 3.3 L Chloride 103 Carbon Dioxide 27 BUN 14 Creatinine 1.10 Glucose 131 H Calcium 9.1
[2020-12-27] MEDS: TOPIRAMATE 50 MG TAB PO SCH (21:25)
[2020-12-27] MEDS: rOPINIRole HCL 1 MG TABLET PO SCH (21:25)
[2020-12-27] MEDS: MONTELUKAST SODIUM 10 MG TABLET PO SCH (21:26)
[2020-12-27] MEDS: CETIRIZINE HCL 10 MG TABLET PO SCH (21:26)
[2020-12-27] MEDS: ATORVASTATIN 10 MG TAB PO SCH (21:26)
[2020-12-27] MEDS: DULoxetine HCL 60 MG CAP PO SCH (21:26)
[2020-12-27] MEDS: PRAMIPEXOLE DIHYDROCHLO 0.5 MG TAB PO SCH (21:26)
[2020-12-28] MEDS: ACETAMINOPHEN 500 MG TAB PO PRN ×2 (01:09→14:36)
[2020-12-28] MEDS: ONDANSETRON INJ 2 MG/ML 2 ML VIAL IV PRN ×2 (01:42→07:51)
[2020-12-28] MEDS: oxyCODONE HCL IR 5 MG TAB (IMMEDIATE RELEASE) PO PRN ×3 (03:27→21:30)
[2020-12-28] MEDS: HYDROmorphone INJ 1 MG/ML SYRINGE IV PRN ×3 (04:07→15:33)
[2020-12-28] MEDS: PANTOprazole 40 MG TAB PO SCH (07:53)
[2020-12-28] MEDS: DOCUSATE SODIUM/SENNA 50/8.6MG TAB PO SCH (07:53)
[2020-12-28] MEDS: NICOTINE 14 MG/24 HR PATCH TD SCH (07:54)
[2020-12-28 08:45] LABS: BUN Creatinine Ratio 14.3 (10-20); Calcium 8.5 mg/dl (8.5-10.1); Creatinine Clr Calc Pharmacy 85.1 ml/min; Est GFR (African American) 80.2 ml/min; Est GFR (Non-African American) 69.2 ml/min; Magnesium 2.2 mg/dl (1.8-2.4); Potassium 3.5 mmol/L (3.5-5.1)
--- NOTE | 2020-12-28 10:38 | Orthopedic Progress Note ---
Date of Service December 28, 2020 Assessment & Plan (1) Neurogenic claudication due to lumbar spinal stenosis: Plan: Assessment lumbar spinal stenosis with neurogenic claudication per plan at this time she had a steady decline in status decline in quality of life and would like pursue surgical invention. Were planning for a lumbar decompression fusion L3-L4 possible L2-L3 with removal of instrumentation L4 5 in the AM. She will be made n.p.o. after midnight. Admission and Anticipated Discharge Date Admission Date: December 25, 2020 Subjective Patient still complaining of significant back pain and leg symptoms with any prolonged standing walking. She does obtain relief with sitting. Physical Exam Physical Exam: On exam she was able to stand and ambulate about the room but requested to sit after very short period of time secondary to neurogenic claudication. Good strength testing otherwise. Results & Data ([facility]) Vital Signs (Past 12 Hours) Vital Signs Temp Pulse Resp BP Pulse Ox 12/28/20 07:24 36.6 C 74 16 115/77 95
[2020-12-28] MEDS: LACTATED RINGER'S 1,000 ML IV SCH (12:49)
[2020-12-28] MEDS ORDERED: TAMSULOSIN HCL 0.4 MG CAP PO ONE (13:15)
[2020-12-28] MEDS: POLYETHYLENE (MIRALAX) 17 GM PACK PO PRN (18:53)
--- NOTE | 2020-12-28 19:08 | Hospitalist Progress Note ---
Date of Service December 28, 2020 Assessment & Plan (1) Neurogenic claudication due to lumbar spinal stenosis: Plan: Defer management to primary service (2) Lumbar radiculopathy: Plan: Neurogenic claudication due to lumbar spinal stenosis Imaging studies suggestive of at least 4 mm of retrolisthesis on extension at the L3-L4 level compared to flexion per Ortho Needs lumbar decompression and fusion L3-L4 with possible L2-L3 Pain control Bowel regimen to prevent constipation Appreciate orthopedics help Continue current management Plan for lumbar surgery tomorrow Dysuria Bladder scan every shift Started on Flomax Consider urology evaluation if needed Ongoing tobacco use Nicotine patch Counseled to quit (3) GERD (gastroesophageal reflux disease): Plan: Continue PPI (4) Allergic asthma: Plan: Add prn albuterol inhaler Continue montelukast and cetirizine (5) Dyslipidemia: Plan: Continue statin (6) Migraine: Plan: On sumitriptan prn (7) Restless leg syndrome: Plan: - Continue pramipexole Plan: DVT Px: SCDs for now Admission and Anticipated Discharge Date Admission Date: December 25, 2020 Subjective Patient is seen and examined at bedside Dates having difficulty urinating today Persistent lower back pain Plan for surgery tomorrow Denies any chest pain, shortness of breath, dizziness, nausea, abdominal pain Review of Systems Review of Systems: All systems reviewed & are unremarkable except as noted in Subjective Physical Exam Physical Exam: Physical Exam: Vitals signs as noted above General Appearance:Morbidly Obese, no apparent distress Head: normocephalic, Atraumatic Eyes: normal inspection, EOMI Neck: supple, Trachea midline Respiratory/Chest: Normal breath sounds, CTA, No accessory muscle use Cardiovascular: S1, S2, No murmur Abdomen/GI:Soft, Non tender, Bowel sounds present Back+ + Lower back tenderness Extremities/Musculoskeletal:normal inspection, no edema Neurologic/Psych:AAOX3, grossly no focal neurological deficits Skin: normal color, warm Results & Data Results & Data ([facility]) Vital Signs (Past 12 Hours) Vital Signs Temp Pulse Resp BP Pulse Ox 12/28/20 15:44 36.6 C 76 16 145/77 H 94 12/28/20 07:24 36.6 C 74 16 115/77 95 Laboratory Results [facility] 12/28/20 06:57 Sodium 138 Potassium 3.5 Chloride 103 Carbon Dioxide 28 BUN 14 Creatinine 0.98 Glucose 100 H Calcium 8.5
[2020-12-28] MEDS: PRAMIPEXOLE DIHYDROCHLO 0.5 MG TAB PO SCH (21:24)
[2020-12-28] MEDS: MONTELUKAST SODIUM 10 MG TABLET PO SCH (21:24)
[2020-12-28] MEDS: CETIRIZINE HCL 10 MG TABLET PO SCH (21:24)
[2020-12-28] MEDS: TOPIRAMATE 50 MG TAB PO SCH (21:24)
[2020-12-28] MEDS: rOPINIRole HCL 1 MG TABLET PO SCH (21:24)
[2020-12-28] MEDS: ATORVASTATIN 10 MG TAB PO SCH (21:24)
[2020-12-28] MEDS: DULoxetine HCL 60 MG CAP PO SCH (21:57)
[2020-12-29] MEDS: HYDROmorphone INJ 1 MG/ML SYRINGE IV PRN ×4 (01:52→16:48)
[2020-12-29] MEDS: LACTATED RINGER'S 1,000 ML IV SCH (05:44)
[2020-12-29 06:32] LABS: Hematocrit (blood only) 39.9 % (37-47); Hemoglobin 13.3 g/dL (12.0-16.0); Mean Corpuscular Hemoglobin 32.1 pg (25-34); Mean Corpuscular Hgb Conc 33.3 g/dL (32-36); Mean Corpuscular Volume 96.4 fL (80-100); Mean Platelet Volume 12.2 fL (7.4-10.4); Platelet Count 183 K/uL (130-400); RDW Coefficient of Variation 13.1 % (11.5-14.5); RDW Standard Deviation 45.7 fL (36.4-46.3); Red Blood Count 4.14 M/uL (4.2-5.4); White Blood Count 7.44 K/uL (4.8-10.8)
[2020-12-29] MEDS ORDERED: fentaNYL citrate 100 MCG/2 ML VIAL ONE ×2 (06:54→08:15)
[2020-12-29] MEDS ORDERED: MIDAZOLAM HCL 1 MG/ML 2ML VIAL ONE (06:54)
[2020-12-29] MEDS ORDERED: EPINEPHrine INJ 1 MG/ML AMP ONE (07:07)
[2020-12-29] MEDS ORDERED: BUPIVACAINE 0.5 % 5 MG/1 ML MPF 30ML VIAL ONE (07:07)
[2020-12-29 07:11] LABS: BUN Creatinine Ratio 13.8 (10-20); Calcium 8.7 mg/dl (8.5-10.1); Creatinine Clr Calc Pharmacy 84.2 ml/min; Est GFR (African American) 79.2 ml/min; Est GFR (Non-African American) 68.3 ml/min; Potassium 3.3 mmol/L (3.5-5.1)
[2020-12-29] MEDS ORDERED: ePHEDrine sulfate 50 MG/ML AMP IV PRN (07:25)
[2020-12-29] MEDS ORDERED: ATROPINE SULFATE 0.1 MG/ML 10ML SYR IV PRN (07:25)
[2020-12-29] MEDS ORDERED: HYDROmorphone INJ 2 MG/ML SYR/VIAL IV PRN (07:25)
[2020-12-29] MEDS ORDERED: ONDANSETRON INJ 2 MG/ML 2 ML VIAL IV PRN ×2 (07:25→11:35)
--- NOTE | 2020-12-29 07:25 | Anesthesiology Consultation ---
Date of Service December 29, 2020 Assessment & Plan ASA ASA3 Proposed Anesthesia Anesthesia Type: General Risk / Benefits Reviewed With: PT / POA / Parent / Guardian, Accepts Plan and Informed Consent Obtained History Surgery Operation Date: 12/29/20 07:45 Proposed Procedures p L3-L4 Decompression and Fusion, L4-L5 Removal of Hardware - Luke Mc, Height/Weight Height: 5 ft 1 in Weight: 116.1 kg Allergies Allergy/AdvReac Type Severity Reaction Status Date / Time No Known Drug Allergies Allergy Unknown NONE Verified 12/25/20 14:23 Medications Home Medications Medication Instructions Recorded Confirmed Last Taken dexlansoprazole 60 mg 60 mg PO HS 04/18/18 12/25/20 12/24/20 capsule,biphase delayed release (Dexilant) atorvastatin 10 mg tablet 10 mg PO HS 12/25/20 12/25/20 12/24/20 cetirizine 10 mg tablet (Zyrtec) 10 mg PO HS 12/25/20 12/25/20 12/24/20 montelukast 10 mg tablet 10 mg PO HS 12/25/20 12/25/20 12/24/20 ondansetron HCl 4 mg tablet 4 mg PO Q6H PRN 12/25/20 12/25/20 Unknown (Zofran) pramipexole 0.5 mg tablet 0.5 mg PO HS 12/25/20 12/25/20 12/24/20 sumatriptan succinate 6 mg/0.5 mL 6 mg SUBCUT DAILY PRN 12/25/20 12/25/20 Unknown subcutaneous pen injector Active Medications Generic Name Dose Route Start Last Admin Trade Name Ronald PRN Reason Stop Dose Admin Acetaminophen 1,000 mg 12/25/20 16:09 12/28/20 14:36 Acetaminophen 500 Mg Tab PO 01/24/21 16:08 1,000 mg Q8H PRN Administration MILD Pain Scale 1,2,3 & Pre PT Atorvastatin Calcium 10 mg 12/25/20 21:00 12/28/20 21:24 Atorvastatin 10 Mg Tab PO 01/24/21 20:59 10 mg HS ELVIA Administration Bisacodyl 10 mg 12/27/20 13:39 12/28/20 21:30 Bisacodyl 10 Mg Supp VT 01/26/21 13:38 10 mg DAILY PRN Administration Constipation Cetirizine HCl 10 mg 12/25/20 21:00 12/28/20 21:24 Cetirizine Hcl 10 Mg Tablet PO 01/24/21 20:59 10 mg HS ELVIA Administration Duloxetine HCl 60 mg 12/25/20 21:00 12/28/20 21:57 Duloxetine Hcl 60 Mg Cap PO 01/24/21 20:59 60 mg HS ELVIA Administration Hydromorphone HCl 1 mg 12/25/20 16:09 12/29/20 05:48 Hydromorphone Inj 1 Mg/Ml Syringe IV 01/08/21 16:08 1 mg Q3H PRN Administration severe pain (scale 7-10) Lactated Ringer's 1,000 mls @ 60 mls/hr 12/25/20 16:09 12/29/20 05:44 Lr IV 01/24/21 16:08 60 mls/hr .[id number] ELVIA Administration Lorazepam 0.5 mg 12/25/20 16:09 12/28/20 14:36 Lorazepam 0.5 Mg Tab PO 01/24/21 16:08 0.5 mg Q8H PRN Administration sedation/anxiety Magnesium Hydroxide 30 ml 12/25/20 16:09 12/26/20 14:32 Magnesium Hydroxide Susp 30 Ml Udc PO 01/24/21 16:08 30 ml Q24H PRN Administration Constipation Miscellaneous 1 ea 12/26/20 08:59 12/28/20 07:54 Remove Nicoderm Patch N/A 01/25/21 08:58 1 ea [id number] ELVIA Administration Montelukast Sodium 10 mg 12/25/20 21:00 12/28/20 21:24 Montelukast Sodium 10 Mg Tablet PO 01/24/21 20:59 10 mg HS ELVIA Administration Nicotine 14 mg 12/26/20 09:00 12/28/20 07:54 Nicotine 14 Mg/24 Hr Patch TD 01/25/21 08:59 14 mg QAM ELVIA Administration Ondansetron HCl 4 mg 12/25/20 16:09 12/28/20 07:51 Ondansetron Inj 2 Mg/Ml 2 Ml Vial IV 01/24/21 16:08 4 mg Q6H PRN Administration Nausea &/or Vomiting Ondansetron HCl 4 mg 12/25/20 16:09 12/27/20 09:19 Ondansetron 4 Mg Od Tab PO 01/24/21 16:08 4 mg Q6H PRN Administration Nausea Oxycodone HCl 5 - 10 mg 12/25/20 16:09 12/28/20 21:30 Oxycodone Hcl Ir 5 Mg Tab (Immediate Release) PO 01/08/21 16:08 10 mg Q4H PRN Administration mod to severe pain Pantoprazole Sodium 40 mg 12/26/20 09:00 12/28/20 07:53 Pantoprazole 40 Mg Tab PO 01/25/21 08:59 40 mg QAM ELVIA Administration Polyethylene Glycol 17 gm 12/26/20 21:47 12/28/20 18:53 Polyethylene (Miralax) 17 Gm Pack PO 01/25/21 21:46 17 gm DAILY PRN Administration Constipation Pramipexole Dihydrochloride 0.5 mg 12/25/20 21:00 12/28/20 21:24 Pramipexole Dihydrochlo 0.5 Mg Tab PO 01/24/21 20:59 0.5 mg HS ELVIA Administration Ropinirole HCl 3 mg 12/25/20 21:00 12/28/20 21:24 Ropinirole Hcl 1 Mg Tablet PO 01/24/21 20:59 3 mg HS ELVIA Administration Senna/Docusate Sodium 1 tab 12/26/20 21:50 12/28/20 07:53 Docusate Sodium/Senna 50/8.6mg Tab PO 01/25/21 21:49 1 tab QAM ELVIA Administration Topiramate 50 mg 12/25/20 21:00 12/28/20 21:24 Topiramate 50 Mg Tab PO 01/24/21 20:59 50 mg HS ELVIA Administration NPO Date Last Intake of Fluids: 12/28/20 Time Last Intake of Fluids: 19:00 Date Last Intake of Solids: 12/28/20 Time Last Intake of Solids: 19:00 Past Medical History Medical History Allergic asthma Chronic back pain Degenerative disc disease Dyslipidemia Fibromyalgia GERD (gastroesophageal reflux disease) H/O difficult intubation 11/05/13 - Glidescope #4, ETT #7.0, Atraumatic, GS x 1 without difficulty. Hiatal hernia Migraine Osteoarthritis Restless leg syndrome Exercise / Class Metabolic Activity II 4-5 Yardwork/Stairs/Walk up hill Past Family History Family History Father Family history of diabetes mellitus Grandfather (Paternal) Family history of diabetes mellitus Grandmother (Paternal) Family history of diabetes mellitus Past Surgical History Surgical History Fusion of spine L4-L5, L5-S1. 11/05/13: Glidescope #4, ETT #7.0, Atraumatic, GS x 1 without difficulty. History of bilateral tubal ligation History of carpal tunnel release RIGHT - REMOVED CYST FROM RIGHT HAND AT SAME TIME History of section History of colonoscopy History of dilatation and curettage History of esophagogastroduodenoscopy (EGD) History of hysterectomy VALENCIA WITH RSO History of left knee replacement History of tonsillectomy History of tooth extraction Spinal cord stimulator status PLACED 2016, REMOVED 2017 Past Anesthesia History No Hx of Anesthesia Complications and No Family Hx of Anesthesia Complications History of PONV No Hx of PONV and No Hx of Motion Sickness Social History Smoking Status: Current every day smoker tobacco type: cigarettes Smoking cigarettes per day: 5 cig/day Hx Alcohol Use: Yes alcohol intake frequency: holidays/special occasions only Hx Substance Use: No substance use type: does not use Review of Systems denies fever/cough/ colds/ chest pain/ SOB/ JEFERSON denies JEFERSON Physical Exam Vital Signs Last Vital Signs Temp 36.5 C 12/29/20 06:58 Pulse 84 12/29/20 06:58 Resp 18 12/29/20 06:58 BP 132/57 L 12/29/20 06:58 Pulse Ox 94 12/29/20 06:58 ENMT Mouth: no TMJ abnormality and no dentition abnormality Thyromental Distance: > or= 3.5 Finger Breadths Mallampati Class: II Neck neck extension not limited Respiratory normal respiratory effort; no respiratory distress Auscultation: lungs clear to auscultation bilaterally Cardiovascular Rate/Rhythm: regular rate and regular rhythm Neurologic moves all extremities Psychiatric Orientation: alert and oriented x 3 Testing Laboratory Results 12/29/20 06:09 12/29/20 06:09 Urine Color Yellow 12/25/20 11:54 Urine Appearance Clear (Clear) 12/25/20 11:54 Urine pH 7.5 (4.5-7.5) 12/25/20 11:54 Ur Specific Ransom 1.020 (1.000-1.030) 12/25/20 11:54 Urine Protein Negative (Negative) 12/25/20 11:54 Urine Glucose (UA) Negative (Negative) 12/25/20 11:54 Urine Ketones Negative (Negative) 12/25/20 11:54 Urine Nitrite Negative (Negative) 12/25/20 11:54 Ur Leukocyte Esterase Negative (Negative) 12/25/20 11:54 Blood Type O Positive 12/28/20 06:57 Antibody Screen NEGATIVE 12/28/20 06:57
--- NOTE | 2020-12-29 07:33 | History & Physical Bridge Note ---
Date of Service December 29, 2020 History & Physical Bridge Note I have examined the patient, reviewed the History & Physical and in the interval since the performance of the History & Physical I have noted the following changes of clinical significance: no changes noted Lumbar decompression fusion L3-L4 possible L2-L3 with hardware removal L4-L5
[2020-12-29] MEDS ORDERED: ceFAZolin 2,000 MG/15 ML IV PUSH IV ONE (07:36)
[2020-12-29] MEDS ORDERED: ceFAZolin 2000MG 2,000 MG/15 ML SYR IV ONE (07:38)
[2020-12-29] MEDS ORDERED: ROCURONIUM BROMIDE 10 MG/ML 5 ML VIAL IV ONE (08:16)
[2020-12-29] MEDS ORDERED: ONDANSETRON INJ 2 MG/ML 2 ML VIAL ONE (08:16)
[2020-12-29] MEDS ORDERED: DEXAMETHASONE SOD INJ 4 MG/ML VIAL ONE (08:16)
[2020-12-29] MEDS ORDERED: LIDOCAINE 2% 2 ML VIAL/AMP(20MG/ML) INFIL ONE (08:16)
[2020-12-29] MEDS ORDERED: PROPOFOL IV EMULSION 10 MG/ML 20 ML VIAL IV ONE (08:16)
[2020-12-29] MEDS ORDERED: GLYCOPYRROLATE 0.2 MG/ML VIAL ONE (08:17)
[2020-12-29] MEDS ORDERED: NEOSTIGMINE METHYLSULFATE 1 MG/ML 10ML VIAL ONE (08:17)
[2020-12-29] MEDS ORDERED: FLOSEAL HEMOSTATIC MATRIX 10ML TOP ONE (08:35)
--- NOTE | 2020-12-29 09:52 | Operative Report ---
Post Operative Report Pre & Post Diagnosis Operation Date: 12/29/20 07:45 Pre-Op Diagnosis: Neurogenic Claudication Due to Lumbar Spinal Stenosis Post-Op Diagnosis: Neurogenic Claudication Due to Lumbar Spinal Stenosis I identified the patient and participated in the time-out.: Yes Procedure Operation Date: 12/29/20 07:45 Actual Procedures #1 removal of posterior instrumentation L4-5. #2 exploration of fusion L4-5. #3 lumbar decompression with bilateral medial facetectomies and foraminotomies L2-L3 L3-L4. #4 posterior spinal fusion L2-L3 L3-L4. #5 placed posterior instrumentation L2-L5. #6 interbody fusion L3-L4 L4-5. #7 placement peek cage 13 x 26 mm at L2-L3 and L3-L4. #8 placement locally harvested morselized autograft in the posterior gutters. #9 placement infuse collagen sponge, and master graft in the posterior lateral gutters and I factor interbody spaces. Surgeon Luke Mc, DO Lead Case Manager Lu Ro Estimated Blood Loss 200 Findings See Below The patient is 5 foot 1 inches tall weighing over 116 kg with a BMI in excess of 48. Patient's body habitus did contribute to significant technical difficulty requiring tubes retractors longus instruments in order to perform her procedure. This had at least 50% increase to the operative time. Specimens None Indications This is a 45-year-old female well-known to me the presents with marked decline in status inability to ambulate any distance without severe back and leg pain and weakness. Subsequently she is here for decompression fusion. Description of Procedure Patient was met with identified informed consent obtained. Patient was then taken to the operative suite underwent a patient placed in a prone position on the Nikolay table on top of the Phil frame. All bony prominences well-padded eyes inspected to ensure no external pressure placed upon the. This point lumbar spine was prepped and draped in the normal sterile fashion. Sharp dissection with the assistance of Bovie cautery was performed down to and exposing the lamina and transverse processes of L2-L3 and instrumentation at L4- L5 bilaterally. Then proceeded to remove the hardware at L4-L5 explore the fusion mass noting it to be mature and intact. I then performed a complete laminectomy of L3 including bilateral medial facetectomies and foraminotomies addressing severe spinal stenosis. I then explored L2-L3 and noted severe lateral recess disease requiring aggressive medial facetectomies for adequate decompression. Secondary the patient's body habitus and size of decompression was concern for instability elected to fuse this level as well. Pedicle screws then placed in L2 L3-L4-L5 bilaterally with assistance of fluoroscopy and appropriate sized jairo placed. By way of a transfemoral approach on the right complete discectomy of L3 3 L4 was performed endplates curetted to subcortically bone and a 13 x 26 mm peek cage filled I factor tapped in position. Then proceeded to L2-L3 and again by way of a transforaminal portion right complete discectomy performed endplates curetted to subcortically bone and again a 13 x 26 mm peek cage filled with I factor tapped in position. The rods were then placed compressed locked into final position bilaterally. The transverse processes of L2-L3-L4 burred to subcortical bleeding bone. Infuse collagen sponge master graft local autograft was placed in the posterior gutters. 15 round FACUNDO drain inserted. The incision then closed with 1 Vicryl in the fascia 2-0 Vicryl subcutaneously and 4 Monocryl for final skin closure. Please note spinal cord monitoring was utilized at the procedure no changes noted. Lastly Lu Ro was present at the entire surgeon while the patient positioning complex portions of the surgery and final skin closure. I attest to the content of the Intraoperative Record and any orders documented therein. Any exceptions are noted below.
--- NOTE | 2020-12-29 10:17 | Fluoroscopy Report ---
FL lumbar spine 2-3V HISTORY: 45 years-old Female L3-5 D/F L4-5 RH lumbar spine fusion COMPARISON: CT lumbar spine 12/25/2020 TECHNIQUE: 3 spot fluoroscopic images of the lumbar spine were obtained utilizing 14.2 seconds fluoro scopy time FINDINGS: Posterior interbody screws with discectomy changes are again noted at L5. Posterior interbody jairo and screw fusion noted at what appears to be the L1-L4 levels with discectomy changes. The hardware appe ars intact. Alignment appears satisfactory. No unexpected opaque foreign bodies. IMPRESSION: Fluoroscopic assistance as above. ACT 112: Negative or not required by law. The above report was generated using voice recognition software. It may contain grammatical, syntax o r spelling errors. Electronically signed by: Edil Whatley M.D. 12/29/2020 10:16 AM
[2020-12-29] MEDS: fentaNYL citrate 100 MCG/2 ML VIAL IV PRN ×4 (10:27→10:57)
[2020-12-29] MEDS ORDERED: SODIUM CHLORIDE 0.9% 1000ML 1,000 ML IV SCH (11:35)
[2020-12-29] MEDS ORDERED: bisacodyL 10 MG SUPP PR PRN (11:35)
[2020-12-29] MEDS ORDERED: PROMETHAZINE HCL 12.5 MG in SODIUM CHLORIDE 0.9% 50 ML IV PRN (11:35)
[2020-12-29] MEDS ORDERED: traMADol HCL 50 MG TABLET PO PRN (11:35)
[2020-12-29] MEDS ORDERED: ACETAMINOPHEN 1,000 MG/100 ML VIAL IV PRN (11:35)
[2020-12-29] MEDS ORDERED: LORazepam 0.5 MG TAB PO PRN (11:35)
[2020-12-29] MEDS ORDERED: SOD PHOSPHATE/SOD BIPHOSPHATE ENEMA 132 ML BTL PR PRN (11:35)
[2020-12-29] MEDS ORDERED: NALOXONE HCL 0.4 MG/1 ML VIAL/CARP IV PRN (11:35)
[2020-12-29] MEDS ORDERED: METOCLOPRAMIDE HCL INJ 5 MG/ML 2 ML VIAL IV PRN (11:35)
[2020-12-29] MEDS ORDERED: hydrOXYzine HCl 25 MG TAB PO PRN (11:35)
[2020-12-29] MEDS ORDERED: DO NOT ADMINISTER PNEUMOCOCCAL VACCINE PRN (11:35)
[2020-12-29] MEDS ORDERED: ACETAMINOPHEN 500 MG TAB PO PRN (11:35)
[2020-12-29] MEDS ORDERED: LORazepam 0.5 MG/1 ML VIAL IV PRN (11:35)
[2020-12-29] MEDS ORDERED: ONDANSETRON 4 MG OD TAB PO PRN (11:35)
[2020-12-29] MEDS ORDERED: DO NOT ADMINISTER FLU VACCINE PRN (11:35)
[2020-12-29] MEDS ORDERED: MAGNESIUM HYDROXIDE SUSP 30 ML UDC PO PRN (11:35)
[2020-12-29] MEDS ORDERED: diphenhydrAMINE Capsule 25 MG CAP PO PRN (11:35)
--- NOTE | 2020-12-29 11:54 | Anesthesiology Progress Note ---
Date of Service December 29, 2020 Anesthesia Post Procedure Vital Signs Vital Signs: Temp Pulse Pulse Pulse Resp BP Pulse Ox 12/29/20 11:37 36.4 C L 68 16 98/59 L 95 12/29/20 11:20 79 14 107/63 94 12/29/20 11:10 37.2 C 79 14 122/80 96 12/29/20 11:00 73 17 142/69 H 95 12/29/20 10:50 85 15 146/77 H 96 12/29/20 10:40 73 15 122/64 98 12/29/20 10:30 71 18 139/68 97 12/29/20 10:20 70 15 134/71 97 12/29/20 10:10 36.5 C 77 14 146/78 H 96 12/29/20 06:58 36.5 C 89 84 18 132/57 L 94 12/28/20 21:58 36.7 C 88 17 149/78 H 97 12/28/20 15:44 36.6 C 76 16 145/77 H 94 Pain Intensity Back: Pain Intensity: 8 Transfer of Care Handoff Completed per policy Notes Mental Status: alert / awake / arousable and participated in evaluation Patient Amnestic to Procedure: Yes Nausea / Vomiting: adequately controlled Pain: adequately controlled Airway Patency, RR, SpO2: stable & adequate BP & HR: stable & adequate Hydration State: stable & adequate Anesthetic Complications: no major complications apparent and Pt Satisfied with anesthetic care
[2020-12-29] MEDS: KETOROLAC TROMETHAMINE 15 MG/ML VIAL IV SCH ×3 (11:58→23:11)
[2020-12-29] MEDS: NICOTINE 14 MG/24 HR PATCH TD SCH (12:04)
[2020-12-29] MEDS: PANTOprazole 40 MG TAB PO SCH (12:06)
[2020-12-29] MEDS: TAMSULOSIN HCL 0.4 MG CAP PO SCH (12:06)
[2020-12-29] MEDS: POTASSIUM CHLORIDE / WTR 10 MEQ/100 ML PLCT IV SCH ×2 (12:15→15:13)
[2020-12-29] MEDS: DOCUSATE SODIUM/SENNA 50/8.6MG TAB PO SCH ×2 (12:16→20:53)
[2020-12-29] MEDS: oxyCODONE HCL IR 5 MG TAB (IMMEDIATE RELEASE) PO PRN ×2 (14:29→19:26)
--- NOTE | 2020-12-29 15:16 | Hospitalist Progress Note ---
Date of Service December 29, 2020 Assessment & Plan (1) Neurogenic claudication due to lumbar spinal stenosis: Plan: Defer management to primary service (2) Lumbar radiculopathy: Plan: Neurogenic claudication due to lumbar spinal stenosis Imaging studies suggestive of at least 4 mm of retrolisthesis on extension at the L3-L4 level compared to flexion per Ortho Actual Procedures POD #0 #1 removal of posterior instrumentation L4-5. #2 exploration of fusion L4-5. #3 lumbar decompression with bilateral medial facetectomies and foraminotomies L2-L3 L3-L4. #4 posterior spinal fusion L2-L3 L3-L4. #5 placed posterior instrumentation L2-L5. #6 interbody fusion L3-L4 L4-5. #7 placement peek cage 13 x 26 mm at L2-L3 and L3-L4. #8 placement locally harvested morselized autograft in the posterior gutters. #9 placement infuse collagen sponge, and master graft in the posterior lateral gutters and I factor interbody spaces. Bowel regimen to prevent constipation Appreciate orthopedics help Continue current management Hypokalemia k 3.3 K riders x 2 ordered follow Dysuria Bladder scan every shift Started on Flomax rock cath in place, will need to do voiding trial when more ambulatory Consider urology evaluation if needed Ongoing tobacco use Nicotine patch Counseled to quit (3) GERD (gastroesophageal reflux disease): Plan: Continue PPI (4) Allergic asthma: Plan: Add prn albuterol inhaler Continue montelukast and cetirizine (5) Dyslipidemia: Plan: Continue statin (6) Migraine: Plan: on sumitriptan prn (7) Restless leg syndrome: Plan: Continue pramipexole Plan: DVT Px: SCDs for now Dispo: per primary Admission and Anticipated Discharge Date Admission Date: December 25, 2020 Supervising Physician Co-Signing Physician Notes Patient is seen and examined at bedside postoperatively States having pain at surgical site Leg numbness improving Denies any chest pain, shortness of breath, dizziness, abdominal pain Physical Exam: Vitals signs as noted above General Appearance:Morbidly Obese, no apparent distress Head: normocephalic, Atraumatic Eyes: normal inspection, EOMI Neck: supple, Trachea midline Respiratory/Chest: Normal breath sounds, CTA, No accessory muscle use Cardiovascular: S1, S2, No murmur Abdomen/GI:Soft, Non tender, Bowel sounds present Back+ + Lower back tenderness, Surgical site in dressing Extremities/Musculoskeletal:normal inspection, no edema Neurologic/Psych:AAOX3, grossly no focal neurological deficits Skin: normal color, warm Lumbar spinal stenosis with neurogenic claudication S/P decompression, fusion surgery POD #0 Pain control Bowel regimen to prevent constipation Monitor for postop anemia Hypokalemia Replace electrolytes I personally reviewed the record. Patient is interviewed and examined at bedside. Patient's care is coordinated with Ms.Brittany Mynor ARMAS. Please refer to the documentation above for details of patient's presentation and for discussion of other issues. Subjective Patient was seen and examined in room 306. Follow-up lumbar decompression fusion by Dr. Mc. She underwent surgical fixation today. She complains of incisional pain but otherwise is feeling improved. "This is my third back surgery." She denies any fever, chills, sweats, lightheadedness, dizziness, chest pain, shortness of breath, nausea, vomiting, abdominal pain. She is requesting SCDs at home. Review of Systems Review of Systems: All systems reviewed & are unremarkable except as noted in HPI & below Physical Exam Physical Exam: Gen: Morbidly obese, female, WD/WN, NAD, A&O x3 HEENT: Normocephalic, atraumatic, conjunctivae moist, sclerae anicteric, mucous membranes moist. Lung: Clear to Auscultation bilaterally, no wheezes/rales/rhonchi Heart: Regular rate, regular rhythm, no murmurs, rubs, or gallops Abdomen: Soft, NT, ND +BS x 4 Extremities: No edema, SCDs in place, obese lower extremities, lumbar dressing CDI, FACUNDO drain with serosanguineous drainage Skin: Warm, no rash, negative turgor. : rock cath draining yellow urine Results & Data Results & Data ([facility]) Vital Signs (Past 12 Hours) Vital Signs Temp Pulse Pulse Pulse Resp BP Pulse Ox 12/29/20 13:36 36.5 C 77 18 128/79 93 12/29/20 12:35 36.3 C L 74 16 136/81 96 12/29/20 12:05 36.5 C 70 16 115/78 94 12/29/20 11:37 36.4 C L 68 16 98/59 L 95 12/29/20 11:20 79 14 107/63 94 12/29/20 11:10 37.2 C 79 14 122/80 96 12/29/20 11:00 73 17 142/69 H 95 12/29/20 10:50 85 15 146/77 H 96 12/29/20 10:40 73 15 122/64 98 12/29/20 10:30 71 18 139/68 97 12/29/20 10:20 70 15 134/71 97 12/29/20 10:10 36.5 C 77 14 146/78 H 96 12/29/20 06:58 36.5 C 89 84 18 132/57 L 94 Laboratory Results Short CBC 12/29/20 Range/Units 06:09 WBC 7.44 (4.8-10.8) K/uL Hgb 13.3 (12.0-16.0) g/dL Hct 39.9 (37-47) % Plt Count 183 (130-400) K/uL BMP 12/29/20 06:09 Sodium 137 Potassium 3.3 L Chloride 103 Carbon Dioxide 29 BUN 14 Creatinine 0.99 Glucose 97 Calcium 8.7 Diagnostic Findings Lumbar Spine X-Ray 12/29/20 07:45 FL lumbar spine 2-3V HISTORY: 45 years-old Female L3-5 D/F L4-5 RH lumbar spine fusion COMPARISON: CT lumbar spine 12/25/2020 TECHNIQUE: 3 spot fluoroscopic images of the lumbar spine were obtained utilizing 14.2 seconds fluoroscopy time FINDINGS: Posterior interbody screws with discectomy changes are again noted at L5. Posterior interbody jairo and screw fusion noted at what appears to be the L1-L4 levels with discectomy changes. The hardware appears intact. Alignment appears satisfactory. No unexpected opaque foreign bodies. IMPRESSION: Fluoroscopic assistance as above. ACT 112: Negative or not required by law. The above report was generated using voice recognition software. It may contain grammatical, syntax or spelling errors. Electronically signed by: Edil Whatley M.D. 12/29/2020 10:16 AM Medications Administered Current Inpatient Medications Acetaminophen (Acetaminophen 500 Mg Tab) 1,000 mg PO Q8H PRN PRN Reason: MILD Pain Scale 1,2,3 & Pre PT Stop: 01/28/21 11:34 Al Hydrox/Mg Hydrox/Simethicone (Aluminum/Magnesium Susp 30 Ml Udc) 30 ml PO Q6H PRN PRN Reason: Dyspepsia Stop: 01/28/21 11:34 Albuterol (Albuterol Hfa 8 Gm Inhaler) 2 puffs INH Q4H PRN PRN Reason: Shortness Of Breath Or Wheezing Stop: 01/24/21 20:59 Atorvastatin Calcium (Atorvastatin 10 Mg Tab) 10 mg PO HS ELVIA Stop: 01/24/21 20:59 Last Admin: 12/28/20 21:24 Dose: 10 mg Documented by: Bisacodyl (Bisacodyl 10 Mg Supp) 10 mg [place] DAILY PRN PRN Reason: Constipation Stop: 01/28/21 11:34 Cetirizine HCl (Cetirizine Hcl 10 Mg Tablet) 10 mg PO HS [facility] Stop: 01/24/21 20:59 Last Admin: 12/28/20 21:24 Dose: 10 mg Documented by: Diphenhydramine HCl (Diphenhydramine Capsule 25 Mg Cap) 25 mg PO Q6H PRN PRN Reason: Allergic Rhinitis/Insomnia Stop: 01/28/21 11:34 Duloxetine HCl (Duloxetine Hcl 60 Mg Cap) 60 mg PO HS [facility] Stop: 01/24/21 20:59 Last Admin: 12/28/20 21:57 Dose: 60 mg Documented by: Famotidine (Famotidine 20 Mg Tab) 20 mg PO Q12H PRN PRN Reason: Dyspepsia Stop: 01/28/21 11:34 Hydromorphone HCl (Hydromorphone Inj 0.5 Mg/0.5 Ml Syr) 0.5 mg IV Q3H PRN PRN Reason: MOD pain (scale 4-6) & Pre PT Stop: 01/08/21 16:08 Hydromorphone HCl (Hydromorphone Inj 1 Mg/Ml Syringe) 1 mg IV Q3H PRN PRN Reason: severe pain (scale 7-10) Stop: 01/08/21 16:08 Last Admin: 12/29/20 13:29 Dose: 1 mg Documented by: Hydroxyzine HCl (Hydroxyzine Hcl 25 Mg Tab) 25 mg PO Q8H PRN PRN Reason: Anxiety Stop: 01/28/21 11:34 Cefazolin Sodium (Ancef 2000mg) 2,000 mg in 15 mls @ 3.75 mls/min IV Q8H ELVIA; Protocol Stop: 12/30/20 00:03 Sodium Chloride (Nss 1000ml) 1,000 mls @ 150 mls/hr IV .Q6H40M ELVIA Stop: 01/28/21 11:34 Last Infusion: 12/29/20 13:13 Dose: 50 mls/hr Documented by: Promethazine HCl 12.5 mg/ (Sodium Chloride) 50.5 mls @ 202 mls/hr IV Q6H PRN PRN Reason: Nausea &/or Vomiting Stop: 01/28/21 11:34 Acetaminophen (Ofirmev) 1,000 mg in 100 mls @ 400 mls/hr IV Q8H PRN PRN Reason: Pain Rating 1-3 & Pre PT Stop: 01/01/21 11:34 Lorazepam (Ativan) 0.5 mg in 1 mls @ 1 mls/min IV Q8H PRN PRN Reason: Sedation/Anxiety Stop: 01/28/21 11:34 Dexamethasone 6 mg/ Syringe 1.5 mls @ 1 mls/min IV DAILY [facility] Stop: 01/01/21 09:02 Influenza Virus Vaccine Quadrival (Do Not Administer Flu Vaccine) 1 ea N/A PRN PRN PRN Reason: Notification Stop: 01/28/21 11:34 Ketorolac Tromethamine (Ketorolac Tromethamine 15 Mg/Ml Vial) 15 mg IV Q6H [facility] Stop: 12/30/20 06:01 Last Admin: 12/29/20 11:58 Dose: 15 mg Documented by: Lorazepam (Lorazepam 0.5 Mg Tab) 0.5 mg PO Q8H PRN PRN Reason: Sedation/Anxiety Stop: 01/28/21 11:34 Magnesium Hydroxide (Magnesium Hydroxide Susp 30 Ml Udc) 30 ml PO Q24H PRN PRN Reason: Constipation Stop: 01/28/21 11:34 Metoclopramide HCl (Metoclopramide Hcl Inj 5 Mg/Ml 2 Ml Vial) 10 mg IV Q6H PRN PRN Reason: Nausea &/or Vomiting Stop: 01/28/21 11:34 Miscellaneous (Remove Nicoderm Patch) 1 ea N/A DAILY@0859 [facility] Stop: 01/25/21 08:58 Last Admin: 12/29/20 12:04 Dose: 1 ea Documented by: Montelukast Sodium (Montelukast Sodium 10 Mg Tablet) 10 mg PO [facility] Stop: 01/24/21 20:59 Last Admin: 12/28/20 21:24 Dose: 10 mg Documented by: Naloxone HCl (Naloxone Hcl 0.4 Mg/1 Ml Vial/Carp) 0.1 mg IV Q5M PRN PRN Reason: Oversedation/Resp depression Stop: 01/28/21 11:34 Nicotine (Nicotine 14 Mg/24 Hr Patch) 14 mg TD [facility] Stop: 01/25/21 08:59 Last Admin: 12/29/20 12:04 Dose: 14 mg Documented by: Ondansetron HCl (Ondansetron Inj 2 Mg/Ml 2 Ml Vial) 4 mg IV Q6H PRN PRN Reason: Nausea &/or Vomiting Stop: 01/28/21 11:34 Ondansetron HCl (Ondansetron 4 Mg Od Tab) 4 mg PO Q6H PRN PRN Reason: Nausea Stop: 01/28/21 11:34 Oxycodone HCl (Oxycodone Hcl Ir 5 Mg Tab (Immediate Release)) 5 - 10 mg PO Q4H PRN PRN Reason: mod to severe pain Stop: 01/08/21 16:08 Last Admin: 12/29/20 14:29 Dose: 10 mg Documented by: Pantoprazole Sodium (Pantoprazole 40 Mg Tab) 40 mg PO [facility] Stop: 01/25/21 08:59 Last Admin: 12/29/20 12:06 Dose: 40 mg Documented by: Pneumococcal Polyvalent Vaccine (Do Not Administer Pneumococcal Vaccine) 1 ea N/A PRN PRN PRN Reason: Notification Stop: 01/28/21 11:34 Polyethylene Glycol (Polyethylene (Miralax) 17 Gm Pack) 17 gm PO DAILY PRN PRN Reason: Constipation Stop: 01/25/21 21:46 Last Admin: 12/28/20 18:53 Dose: 17 gm Documented by: Polyethylene Glycol (Polyethylene (Miralax) 17 Gm Pack) 17 gm PO Q6 [facility] Stop: 01/29/21 05:59 Pramipexole Dihydrochloride (Pramipexole Dihydrochlo 0.5 Mg Tab) 0.5 mg PO [facility] Stop: 01/24/21 20:59 Last Admin: 12/28/20 21:24 Dose: 0.5 mg Documented by: Ropinirole HCl (Ropinirole Hcl 1 Mg Tablet) 3 mg PO [facility] Stop: 01/24/21 20:59 Last Admin: 12/28/20 21:24 Dose: 3 mg Documented by: Senna/Docusate Sodium (Docusate Sodium/Senna 50/8.6mg Tab) 2 tab PO [facility] Stop: 01/28/21 20:59 Sodium Biphosphate/Sodium Phosphate (Sod Phosphate/Sod Biphosphate Enema 132 Ml Btl) 132 ml [place] ONE PRN PRN Reason: Constipation Stop: 01/28/21 11:34 Tamsulosin HCl (Tamsulosin Hcl 0.4 Mg Cap) 0.4 mg PO [facility] Stop: 01/28/21 08:59 Last Admin: 12/29/20 12:06 Dose: 0.4 mg Documented by: Topiramate (Topiramate 50 Mg Tab) 50 mg PO [facility] Stop: 01/24/21 20:59 Last Admin: 12/28/20 21:24 Dose: 50 mg Documented by: Tramadol HCl (Tramadol Hcl 50 Mg Tablet) 50 - 100 mg PO Q4H PRN PRN Reason: Moderate-Severe pain & Pre PT Stop: 01/28/21 11:34
[2020-12-29] MEDS: ceFAZolin 2000MG 2,000 MG/15 ML SYR IV SCH ×2 (16:48→23:11)
[2020-12-29] MEDS: DULoxetine HCL 60 MG CAP PO SCH (20:54)
[2020-12-29] MEDS: rOPINIRole HCL 1 MG TABLET PO SCH (20:54)
[2020-12-29] MEDS: PRAMIPEXOLE DIHYDROCHLO 0.5 MG TAB PO SCH (20:55)
[2020-12-29] MEDS: ATORVASTATIN 10 MG TAB PO SCH (20:55)
[2020-12-29] MEDS: MONTELUKAST SODIUM 10 MG TABLET PO SCH (20:55)
[2020-12-29] MEDS: TOPIRAMATE 50 MG TAB PO SCH (20:55)
[2020-12-29] MEDS: CETIRIZINE HCL 10 MG TABLET PO SCH (20:56)
[2020-12-30] MEDS: oxyCODONE HCL IR 5 MG TAB (IMMEDIATE RELEASE) PO PRN ×2 (03:24→13:27)
[2020-12-30] MEDS: POLYETHYLENE (MIRALAX) 17 GM PACK PO SCH ×3 (05:53→17:47)
[2020-12-30] MEDS: KETOROLAC TROMETHAMINE 15 MG/ML VIAL IV SCH (05:54)
[2020-12-30 06:21] LABS: Basophils # (auto) 0.02 K/uL (0-0.2); Basophils % (auto) 0.2 %; Eosinophils # (auto) 0.06 K/uL (0-0.5); Eosinophils % (auto) 0.5 %; Hematocrit (blood only) 35.3 % (37-47); Hemoglobin 11.5 g/dL (12.0-16.0); Immature Granulocytes # (auto) 0.03 K/uL (0.00-0.02); Immature Granulocytes % (auto) 0.2 %; Lymphocytes # (auto) 2.01 K/uL (1.2-3.4); Lymphocytes % (auto) 15.4 %; Mean Corpuscular Hemoglobin 31.4 pg (25-34); Mean Corpuscular Hgb Conc 32.6 g/dL (32-36); Mean Corpuscular Volume 96.4 fL (80-100); Mean Platelet Volume 12.1 fL (7.4-10.4); Monocytes % (auto) 7.7 %; Neutrophils # (auto) 9.89 K/uL (1.4-6.5); Platelet Count 190 K/uL (130-400); RDW Coefficient of Variation 12.9 % (11.5-14.5); RDW Standard Deviation 45.4 fL (36.4-46.3); Red Blood Count 3.66 M/uL (4.2-5.4); White Blood Count 13.01 K/uL (4.8-10.8)
[2020-12-30 06:53] LABS: BUN Creatinine Ratio 14.7 (10-20); Calcium 8.4 mg/dl (8.5-10.1); Creatinine Clr Calc Pharmacy 87.7 ml/min; Est GFR (African American) 83.3 ml/min; Est GFR (Non-African American) 71.8 ml/min; Magnesium 2.5 mg/dl (1.8-2.4); Potassium 3.5 mmol/L (3.5-5.1)
[2020-12-30] MEDS: dexAMETHasone 6 MG in SYRINGE 0 ML IV SCH (09:16)
[2020-12-30] MEDS: HYDROmorphone INJ 1 MG/ML SYRINGE IV PRN ×3 (09:18→22:07)
[2020-12-30] MEDS: NICOTINE 14 MG/24 HR PATCH TD SCH (09:19)
[2020-12-30] MEDS: PANTOprazole 40 MG TAB PO SCH (09:19)
[2020-12-30] MEDS: TAMSULOSIN HCL 0.4 MG CAP PO SCH (09:19)
--- NOTE | 2020-12-30 09:48 | Hospitalist Progress Note ---
Date of Service December 30, 2020 Assessment & Plan (1) Neurogenic claudication due to lumbar spinal stenosis: (2) Lumbar radiculopathy: Plan: Neurogenic claudication due to lumbar spinal stenosis Imaging studies suggestive of at least 4 mm of retrolisthesis on extension at the L3-L4 level compared to flexion per Ortho Actual Procedures POD #1 #1 removal of posterior instrumentation L4-5. #2 exploration of fusion L4-5. #3 lumbar decompression with bilateral medial facetectomies and foraminotomies L2-L3 L3-L4. #4 posterior spinal fusion L2-L3 L3-L4. #5 placed posterior instrumentation L2-L5. #6 interbody fusion L3-L4 L4-5. #7 placement peek cage 13 x 26 mm at L2-L3 and L3-L4. #8 placement locally harvested morselized autograft in the posterior gutters. #9 placement infuse collagen sponge, and master graft in the posterior lateral gutters and I factor interbody spaces. Bowel regimen to prevent constipation Appreciate orthopedics help Continue current management Hypokalemia resolved, monitor Leukocytosis wbc 13.01k likely reactive, also receiving decadron no s/sx of infection monitor Anemia, acute blood loss secondary to postop state and dilutional H&H stable at 11.5 and 35.3 FACUNDO drain still in place, preop hemoglobin 13 monitor Dysuria Bladder scan every shift Started on Flomax rock removed, voiding w/o difficulty complains of freq, she is scheduled to see urology in Early January Ongoing tobacco use Nicotine patch Counseled to quit (3) GERD (gastroesophageal reflux disease): Plan: Continue PPI (4) Allergic asthma: Plan: Add prn albuterol inhaler Continue montelukast and cetirizine (5) Dyslipidemia: Plan: Continue statin (6) Migraine: Plan: on sumitriptan prn (7) Restless leg syndrome: Plan: Continue pramipexole Plan: DVT Px: SCDs for now Dispo: per primary Thank you for this consultation. We will follow the patient with you during their hospital stay. You can reach a member of the [facility] Hospitalist Team 30/08 via hospitalist role on tiger text. Patient was seen and examined in collaboration with, Dr. Love, please see addendum Admission and Anticipated Discharge Date Admission Date: December 25, 2020 Supervising Physician Co-Signing Physician Notes Patient is seen and examined at bedside Doing well today States having nausea earlier today which resolved Lower extremity numbness much improved Urinary retention resolved as well Denies any chest pain, shortness of breath, dizziness, abdominal pain Physical Exam: Vitals signs as noted above General Appearance:Morbidly Obese, no apparent distress Head: normocephalic, Atraumatic Eyes: normal inspection, EOMI Neck: supple, Trachea midline Respiratory/Chest: Normal breath sounds, CTA, No accessory muscle use Cardiovascular: S1, S2, No murmur Abdomen/GI:Soft, Non tender, Bowel sounds present Back+ + Lower back tenderness, Surgical site in dressing, +Drain Extremities/Musculoskeletal:normal inspection, no edema Neurologic/Psych:AAOX3, grossly no focal neurological deficits Skin: normal color, warm Lumbar spinal stenosis with neurogenic claudication S/P decompression, fusion surgery POD #1 Pain control Bowel regimen to prevent constipation Monitor for postop anemia Leukocytosis likely reactive Dysuria Resolved BladderScan as needed Continue Flomax for now I personally reviewed the record. Patient is interviewed and examined at bedside. Patient's care is coordinated with Ms.Brittany Mynor ARMAS. Please refer to the documentation above for details of patient's presentation and for discussion of other issues. Subjective Patient was seen and examined in room 306 Follow-up lumbar back surgery. She is doing well this morning sitting up at bedside. Complains of incisional tenderness. She denies any radicular symptoms. Denies fever, chills, sweats, chest pain, shortness of breath, nausea, vomiting, abdominal pain. She was already up and ambulating around the nursing unit at 6 AM. Her Rock catheter has been removed. She denies any dysuria, increased urgency or frequency with urination or dysuria. She does have a follow-up with urology in January and states she has to have a cystoscopy when cleared from surgery. Review of Systems Review of Systems: All systems reviewed & are unremarkable except as noted in HPI & below Physical Exam Physical Exam: Gen: Morbidly obese, female, WD/WN, NAD, A&O x3, sitting up at bedside HEENT: Normocephalic, atraumatic, conjunctivae moist, sclerae anicteric, mucous membranes moist. Lung: Clear to Auscultation bilaterally, no wheezes/rales/rhonchi Heart: Regular rate, regular rhythm, no murmurs, rubs, or gallops Abdomen: Soft, NT, ND +BS x 4 Extremities: No edema, lumbar dressing CDI, FACUNDO drain with serosanguineous drainage Skin: Warm, no rash, negative turgor. Results & Data Results & Data ([facility]) Vital Signs (Past 12 Hours) Vital Signs Temp Pulse Resp BP Pulse Ox 12/30/20 07:24 36.8 C 79 16 104/68 96 12/30/20 03:19 36.6 C 80 16 122/75 96 Laboratory Results Short CBC 12/30/20 Range/Units 05:28 WBC 13.01 H (4.8-10.8) K/uL Hgb 11.5 L (12.0-16.0) g/dL Hct 35.3 L (37-47) % Plt Count 190 (130-400) K/uL BMP 12/30/20 05:28 Sodium 138 Potassium 3.5 Chloride 107 Carbon Dioxide 27 BUN 14 Creatinine 0.95 Glucose 123 H Calcium 8.4 L Medications Administered Current Inpatient Medications Acetaminophen (Acetaminophen 500 Mg Tab) 1,000 mg PO Q8H PRN PRN Reason: MILD Pain Scale 1,2,3 & Pre PT Stop: 01/28/21 11:34 Al Hydrox/Mg Hydrox/Simethicone (Aluminum/Magnesium Susp 30 Ml Udc) 30 ml PO Q6H PRN PRN Reason: Dyspepsia Stop: 01/28/21 11:34 Albuterol (Albuterol Hfa 8 Gm Inhaler) 2 puffs INH Q4H PRN PRN Reason: Shortness Of Breath Or Wheezing Stop: 01/24/21 20:59 Atorvastatin Calcium (Atorvastatin 10 Mg Tab) 10 mg PO HS [facility] Stop: 01/24/21 20:59 Last Admin: 12/29/20 20:55 Dose: 10 mg Documented by: Bisacodyl (Bisacodyl 10 Mg Supp) 10 mg [place] DAILY PRN PRN Reason: Constipation Stop: 01/28/21 11:34 Cetirizine HCl (Cetirizine Hcl 10 Mg Tablet) 10 mg PO HS [facility] Stop: 01/24/21 20:59 Last Admin: 12/29/20 20:56 Dose: 10 mg Documented by: Diphenhydramine HCl (Diphenhydramine Capsule 25 Mg Cap) 25 mg PO Q6H PRN PRN Reason: Allergic Rhinitis/Insomnia Stop: 01/28/21 11:34 Duloxetine HCl (Duloxetine Hcl 60 Mg Cap) 60 mg PO HS [facility] Stop: 01/24/21 20:59 Last Admin: 12/29/20 20:54 Dose: 60 mg Documented by: Famotidine (Famotidine 20 Mg Tab) 20 mg PO Q12H PRN PRN Reason: Dyspepsia Stop: 01/28/21 11:34 Hydromorphone HCl (Hydromorphone Inj 0.5 Mg/0.5 Ml Syr) 0.5 mg IV Q3H PRN PRN Reason: MOD pain (scale 4-6) & Pre PT Stop: 01/08/21 16:08 Last Admin: 12/29/20 20:56 Dose: 0.5 mg Documented by: Hydromorphone HCl (Hydromorphone Inj 1 Mg/Ml Syringe) 1 mg IV Q3H PRN PRN Reason: severe pain (scale 7-10) Stop: 01/08/21 16:08 Last Admin: 12/30/20 09:18 Dose: 1 mg Documented by: Hydroxyzine HCl (Hydroxyzine Hcl 25 Mg Tab) 25 mg PO Q8H PRN PRN Reason: Anxiety Stop: 01/28/21 11:34 Promethazine HCl 12.5 mg/ (Sodium Chloride) 50.5 mls @ 202 mls/hr IV Q6H PRN PRN Reason: Nausea &/or Vomiting Stop: 01/28/21 11:34 Acetaminophen (Ofirmev) 1,000 mg in 100 mls @ 400 mls/hr IV Q8H PRN PRN Reason: Pain Rating 1-3 & Pre PT Stop: 01/01/21 11:34 Lorazepam (Ativan) 0.5 mg in 1 mls @ 1 mls/min IV Q8H PRN PRN Reason: Sedation/Anxiety Stop: 01/28/21 11:34 Dexamethasone 6 mg/ Syringe 1.5 mls @ 1 mls/min IV DAILY [facility] Stop: 01/01/21 09:02 Last Admin: 12/30/20 09:16 Dose: 1 mls/min Documented by: Influenza Virus Vaccine Quadrival (Do Not Administer Flu Vaccine) 1 ea N/A PRN PRN PRN Reason: Notification Stop: 01/28/21 11:34 Lorazepam (Lorazepam 0.5 Mg Tab) 0.5 mg PO Q8H PRN PRN Reason: Sedation/Anxiety Stop: 01/28/21 11:34 Magnesium Hydroxide (Magnesium Hydroxide Susp 30 Ml Udc) 30 ml PO Q24H PRN PRN Reason: Constipation Stop: 01/28/21 11:34 Metoclopramide HCl (Metoclopramide Hcl Inj 5 Mg/Ml 2 Ml Vial) 10 mg IV Q6H PRN PRN Reason: Nausea &/or Vomiting Stop: 01/28/21 11:34 Miscellaneous (Remove Nicoderm Patch) 1 ea N/A DAILY@0859 [facility] Stop: 01/25/21 08:58 Last Admin: 12/30/20 09:19 Dose: 1 ea Documented by: Montelukast Sodium (Montelukast Sodium 10 Mg Tablet) 10 mg PO HS [facility] Stop: 01/24/21 20:59 Last Admin: 12/29/20 20:55 Dose: 10 mg Documented by: Naloxone HCl (Naloxone Hcl 0.4 Mg/1 Ml Vial/Carp) 0.1 mg IV Q5M PRN PRN Reason: Oversedation/Resp depression Stop: 01/28/21 11:34 Nicotine (Nicotine 14 Mg/24 Hr Patch) 14 mg TD [facility] Stop: 01/25/21 08:59 Last Admin: 12/30/20 09:19 Dose: 14 mg Documented by: Ondansetron HCl (Ondansetron Inj 2 Mg/Ml 2 Ml Vial) 4 mg IV Q6H PRN PRN Reason: Nausea &/or Vomiting Stop: 01/28/21 11:34 Ondansetron HCl (Ondansetron 4 Mg Od Tab) 4 mg PO Q6H PRN PRN Reason: Nausea Stop: 01/28/21 11:34 Oxycodone HCl (Oxycodone Hcl Ir 5 Mg Tab (Immediate Release)) 5 - 10 mg PO Q4H PRN PRN Reason: mod to severe pain Stop: 01/08/21 16:08 Last Admin: 12/30/20 03:24 Dose: 10 mg Documented by: Pantoprazole Sodium (Pantoprazole 40 Mg Tab) 40 mg PO [facility] Stop: 01/25/21 08:59 Last Admin: 12/30/20 09:19 Dose: 40 mg Documented by: Pneumococcal Polyvalent Vaccine (Do Not Administer Pneumococcal Vaccine) 1 ea N/A PRN PRN PRN Reason: Notification Stop: 01/28/21 11:34 Polyethylene Glycol (Polyethylene (Miralax) 17 Gm Pack) 17 gm PO DAILY PRN PRN Reason: Constipation Stop: 01/25/21 21:46 Last Admin: 12/28/20 18:53 Dose: 17 gm Documented by: Polyethylene Glycol (Polyethylene (Miralax) 17 Gm Pack) 17 gm PO Q6 [facility] Stop: 01/29/21 05:59 Last Admin: 12/30/20 05:53 Dose: 17 gm Documented by: Pramipexole Dihydrochloride (Pramipexole Dihydrochlo 0.5 Mg Tab) 0.5 mg PO [facility] Stop: 01/24/21 20:59 Last Admin: 12/29/20 20:55 Dose: 0.5 mg Documented by: Ropinirole HCl (Ropinirole Hcl 1 Mg Tablet) 3 mg PO [facility] Stop: 01/24/21 20:59 Last Admin: 12/29/20 20:54 Dose: 3 mg Documented by: Senna/Docusate Sodium (Docusate Sodium/Senna 50/8.6mg Tab) 2 tab PO [facility] Stop: 01/28/21 20:59 Last Admin: 12/29/20 20:53 Dose: 2 tab Documented by: Sodium Biphosphate/Sodium Phosphate (Sod Phosphate/Sod Biphosphate Enema 132 Ml Btl) 132 ml [place] ONE PRN PRN Reason: Constipation Stop: 01/28/21 11:34 Tamsulosin HCl (Tamsulosin Hcl 0.4 Mg Cap) [facility] [place]: 01/28/21 08:59 Last Admin: 12/30/20 09:19 Dose: 0.4 mg Documented by: Topiramate (Topiramate 50 Mg Tab) 50 mg PO [facility] Stop: 01/24/21 20:59 Last Admin: 12/29/20 20:55 Dose: 50 mg Documented by: Tramadol HCl (Tramadol Hcl 50 Mg Tablet) 50 - 100 mg PO Q4H PRN PRN Reason: Moderate-Severe pain & Pre PT Stop: 01/28/21 11:34
[2020-12-30] MEDS: FAMOTIDINE 20 MG TAB PO PRN (15:33)
--- NOTE | 2020-12-30 15:57 | Orthopedic Progress Note ---
Date of Service December 30, 2020 Assessment & Plan (1) Neurogenic claudication due to lumbar spinal stenosis: Plan: This time we will continue physical therapy monitor FACUNDO output consider possible discharge home tomorrow. Admission and Anticipated Discharge Date Admission Date: December 25, 2020 Subjective Patient's back pain is controlled leg symptoms markedly improved Physical Exam Physical Exam: Patient seen at bedside. She is good strength testing. Appears comfortable. Results & Data ([facility]) Vital Signs (Past 12 Hours) Vital Signs Temp Pulse Resp BP Pulse Ox 12/30/20 15:45 36.7 C 82 16 128/82 95 12/30/20 07:24 36.8 C 79 16 104/68 96
[2020-12-30] MEDS: ALUMINUM/MAGNESIUM SUSP 30 ML UDC PO PRN (22:07)
[2020-12-30] MEDS: MONTELUKAST SODIUM 10 MG TABLET PO SCH (22:08)
[2020-12-30] MEDS: ATORVASTATIN 10 MG TAB PO SCH (22:08)
[2020-12-30] MEDS: DULoxetine HCL 60 MG CAP PO SCH (22:08)
[2020-12-30] MEDS: CETIRIZINE HCL 10 MG TABLET PO SCH (22:08)
[2020-12-30] MEDS: rOPINIRole HCL 1 MG TABLET PO SCH (22:09)
[2020-12-30] MEDS: TOPIRAMATE 50 MG TAB PO SCH (22:09)
[2020-12-30] MEDS: PRAMIPEXOLE DIHYDROCHLO 0.5 MG TAB PO SCH (22:09)
[2020-12-30] MEDS: DOCUSATE SODIUM/SENNA 50/8.6MG TAB PO SCH (22:09)
[2020-12-31] MEDS: POLYETHYLENE (MIRALAX) 17 GM PACK PO SCH ×2 (01:00→05:51)
[2020-12-31] MEDS: oxyCODONE HCL IR 5 MG TAB (IMMEDIATE RELEASE) PO PRN ×3 (01:02→10:46)
[2020-12-31] MEDS: HYDROmorphone INJ 1 MG/ML SYRINGE IV PRN (03:41)
[2020-12-31 06:19] LABS: Hematocrit (blood only) 37.2 % (37-47); Hemoglobin 12.2 g/dL (12.0-16.0); Mean Corpuscular Hemoglobin 31.8 pg (25-34); Mean Corpuscular Hgb Conc 32.8 g/dL (32-36); Mean Corpuscular Volume 96.9 fL (80-100); Mean Platelet Volume 12.3 fL (7.4-10.4); Platelet Count 230 K/uL (130-400); RDW Coefficient of Variation 13.2 % (11.5-14.5); RDW Standard Deviation 46.6 fL (36.4-46.3); Red Blood Count 3.84 M/uL (4.2-5.4); White Blood Count 14.87 K/uL (4.8-10.8)
[2020-12-31 07:04] LABS: BUN Creatinine Ratio 13.1 (10-20); Calcium 9.1 mg/dl (8.5-10.1); Creatinine Clr Calc Pharmacy 85.9 ml/min; Est GFR (African American) 81.2 ml/min; Potassium 3.8 mmol/L (3.5-5.1)
[2020-12-31] MEDS: TAMSULOSIN HCL 0.4 MG CAP PO SCH (08:02)
[2020-12-31] MEDS: PANTOprazole 40 MG TAB PO SCH (08:02)
[2020-12-31] MEDS: NICOTINE 14 MG/24 HR PATCH TD SCH (08:02)
[2020-12-31] MEDS: FAMOTIDINE 20 MG TAB PO PRN (08:02)
[2020-12-31] MEDS: dexAMETHasone 6 MG in SYRINGE 0 ML IV SCH (08:02)
--- NOTE | 2020-12-31 11:19 | Hospitalist Progress Note ---
Date of Service December 31, 2020 Assessment & Plan (1) Neurogenic claudication due to lumbar spinal stenosis: (2) Lumbar radiculopathy: Plan: Neurogenic claudication due to lumbar spinal stenosis Imaging studies suggestive of at least 4 mm of retrolisthesis on extension at the L3-L4 level compared to flexion per Ortho Actual Procedures POD #2 #1 removal of posterior instrumentation L4-5. #2 exploration of fusion L4-5. #3 lumbar decompression with bilateral medial facetectomies and foraminotomies L2-L3 L3-L4. #4 posterior spinal fusion L2-L3 L3-L4. #5 placed posterior instrumentation L2-L5. #6 interbody fusion L3-L4 L4-5. #7 placement peek cage 13 x 26 mm at L2-L3 and L3-L4. #8 placement locally harvested morselized autograft in the posterior gutters. #9 placement infuse collagen sponge, and master graft in the posterior lateral gutters and I factor interbody spaces. Bowel regimen to prevent constipation Appreciate orthopedics help Continue current management Hypokalemia resolved, monitor Leukocytosis wbc 14.k likely reactive, also receiving decadron no s/sx of infection monitor Anemia, expected acute blood loss secondary to postop state and dilutional H&H stable 12.2 and 37.2 FACUNDO drain still in place, preop hemoglobin 13 monitor Dysuria Bladder scan every shift Started on Flomax rock removed, voiding w/o difficulty complains of freq, she is scheduled to see urology January 16 Ongoing tobacco use Nicotine patch Counseled to quit (3) GERD (gastroesophageal reflux disease): Plan: Continue PPI (4) Allergic asthma: Plan: Add prn albuterol inhaler Continue montelukast and cetirizine (5) Dyslipidemia: Plan: Continue statin (6) Migraine: Plan: on sumitriptan prn (7) Restless leg syndrome: Plan: Continue pramipexole Plan: DVT Px: SCDs for now Dispo: per primary Thank you for this consultation. We will follow the patient with you during their hospital stay. You can reach a member of the [facility] Hospitalist Team 30/08 via hospitalist role on tiger text. Patient was seen and examined in collaboration with, Dr. Tabor, please see addendum Admission and Anticipated Discharge Date Admission Date: December 25, 2020 Supervising Physician Co-Signing Physician Notes patient was discharged before I was able to evaluated patient Subjective Patient was seen and examined in room 306 Follow-up lumbar back surgery. Doing well this morning. Is hoping to be discharged. Complains of incisional tenderness but able to ambulate and walk about the unit. She denies fever, chills, sweats, lightheadedness, dizziness, chest pain, shortness of breath, nausea, vomiting, abdominal pain. She denies any urinary symptoms. Review of Systems Review of Systems: All systems reviewed & are unremarkable except as noted in HPI & below Physical Exam Physical Exam: Gen: Morbidly obese, female, WD/WN, NAD, A&O x3, sitting up at bedside HEENT: Normocephalic, atraumatic, conjunctivae moist, sclerae anicteric, mucous membranes moist. Lung: Clear to Auscultation bilaterally, no wheezes/rales/rhonchi Heart: Regular rate, regular rhythm, no murmurs, rubs, or gallops Abdomen: Soft, NT, ND +BS x 4 Extremities: No edema, lumbar dressing CDI, FACUNDO drain with serosanguineous drainage Skin: Warm, no rash, negative turgor. Results & Data Results & Data ([facility]) Vital Signs (Past 12 Hours) Vital Signs Temp Pulse Resp BP Pulse Ox 12/31/20 07:25 36.5 C 83 18 113/66 98 Laboratory Results Short CBC 12/31/20 Range/Units 05:43 WBC 14.87 H (4.8-10.8) K/uL Hgb 12.2 (12.0-16.0) g/dL Hct 37.2 (37-47) % Plt Count 230 (130-400) K/uL BMP 12/31/20 05:43 Sodium 136 Potassium 3.8 Chloride 104 Carbon Dioxide 29 BUN 13 Creatinine 0.97 Glucose 112 H Calcium 9.1
--- NOTE | 2020-12-31 11:20 | Discharge Summary ---
Date of Service December 31, 2020 Admission HPI Per Admitting Provider This is a 45-year-old female who presents to the emergency room today with marked clotting status. She is known to us from previous surgery in the past. She states that over the past several weeks she is experiencing worsening pain at the lumbosacral junction of the buttocks from her groins down her anterior thighs into her feet. Markedly exacerbated with sitting and particularly standing. She obtains relief only with lying supine. She has seen interventional pain management in the past month and they have declined any injection secondary to her severe symptoms. At this time she denies any loss of bowel bladder control. She is unable to maintain activities of daily living secondary to pain. Principal Diagnosis Lumbar spinal stenosis with neurogenic claudication Discharge Data Allergies Allergy/AdvReac Type Severity Reaction Status Date / Time No Known Drug Allergies Allergy Unknown NONE Verified 12/25/20 14:23 Consultations 12/25/20 13:39 ED Decision to Admit Stat 12/25/20 16:09 Consult Internal Medicine Routine Procedures Performed Operation Date: 12/29/20 07:45 Actual Procedures p L2-L5 Decompression and Fusion, L4-L5 Removal of Hardware(Bilateral) - Luke Mc DO Ordered Studies 12/25/20 13:39 CT lumbar spine wo con Stat 12/29/20 07:45 [place] lumbar spine 2-3V Routine Hospital Course (1) Neurogenic claudication due to lumbar spinal stenosis: Patient was admitted with severe back and leg pain. Underwent a work-up and determined to have significant adjacent level spinal stenosis. She ultimately underwent lumbar decompression fusion [facility] orthopedic for postoperative. Postop and when she was up and ambulating progressed to postop day #2. FACUNDO drain decreasing appropriate. Pain well controlled. Excellent strength testing. Socially discharged home. Discharge orders instructions were on the chart for further review. Total Time Total Time Spent Total Time Spent (In Minutes): 20 minutes Discharge Plan Discharge Items Patient Disposition: Home - Self-Care Reason For Visit: BACK AND LEG PAIN Discharge Diagnosis: Lumbar spinal stenosis with claudication Activity: As commented below Non-emergency contact: Primary Care Provider Call non-emergency contact if: you have any medication questions Follow-up/Referrals: Justin Olmstead D.O. [Primary Care Provider] - Diet: Regular Addtl Attending Provider Instructions: ACTIVITY RECOMMENDATIONS: SELF CARE INSTRUCTIONS AFTER THORACIC/LUMBAR FUSIONS 1. You may walk to your tolerance. It is good exercise for your legs and back. Expect some back and intermittent leg aches and pains. 2. You may perform "counter-top" level activities (make a sandwich, philip with a project, etc.). 3. No bending or lifting of more than 10 pounds or back twisting of any nature (roll like a log when turning in bed). 4. You may ride in a car for 20-30 minutes at a time. No driving until after your first visit with your doctor. 5. Frequent changes of position and restricting sitting to 30 minutes at a time will help limit the amount of back spasms and stiffness you may experience. 6. You may discontinue the use of ambulatory aids (cane, crutches, etc.) once your strength and confidence allow. 7. You may entry level installation technician the shower and let water strike your incision when you arrive home at least once daily. Do not take a tub bath, sit in a hot tub or go into a swimming pool until after your first recheck in the office. SPECIAL CARE INSTRUCTIONS: VERY IMPORTANT TO READ AND REVIEW A. Your surgical incision has been closed with a cosmetic suture under the skin that will dissolve in about 6 weeks. In 14 days, you can use a pair of clean scissors and cut the suture that is left outside of the skin at the ends of your incision. 1. The small skin tapes can be removed 7 days after surgery if they have not fallen off by that point. 2. You may keep the wound open to air as much as possible to promote healing after post-op day number 5 unless told otherwise by your doctor. 3. If you think the wound looks like it is becoming infected (redness or worsening drainage) and/or you are experiencing fever, chill or worsening back pain and muscle spasms, contact the office so that we may evaluate you as soon as possible. B. Complications are uncommon, but please contact us if you have any signs or symptoms of: 1. wound infection (fever higher than 102.5 degrees F, redness, separation of wound, drainage, or increasing pain from the incision) 2. blood clots in legs (pain, swelling, redness and warmth in legs) 3. urinary tract infection (fever higher than 102.5 degrees F, burning upon urination or increased frequency of urination) 4. nerve problems (inability to walk on your toes or heels, numbness, loss of bowel or bladder control) 5. any other symptoms that concern you C. Please call the office at if you have any concerns or questions about your operation or recovery. D. No smoking! Smoking drastically decreases the chance of a solid fusion. E. Do not take any anti-inflammatory medications (Indocin, Advil, Motrin, Aspirin, Naprosyn, etc.) as these may inhibit the chance of a solid fusion. Tylenol is okay to take for pain. MANAGING PAIN AFTER SPINAL SURGERY 1. Narcotic medication is intended for short-term use and will be provided for surgical pain. Surgical pain usually lasts for a period of 4-6 weeks. Narcotic medication includes Percocet, Vicodin, Darvocet, Tylenol #3 or Lortab. 2. Longer-term pain is more appropriately treated with non-narcotic medication such as Tylenol ES. 3. Muscle spasm is not appropriately treated with narcotics. Muscle relaxers such as Soma, Flexeril or Skelaxin can be used along with Tylenol ES. 4. Remember that we all live with some "aches and pains". This is not unusual or uncommon after an injury or as we get older. a. Back pain is expected and may include muscle spasms for 4 to 6 weeks after surgery. The pain should gradually improve. If the pain worsens for no apparent reason, please contact the office. b. Intermittent leg pain may also be experienced and should not be concerned about unless it worsens for no apparent reason. If so, please contact the office. 5. We will provide appropriate medication within the normal guidelines of their prescribed use. We will also be very cautious and aware of potential abuse and extended duration of patients' medication needs. a. Pain medications are for your comfort and to assist with sleep and rest so that the tissue can heal. They are not provided in order to return to normal activity and should not be used through the day. To do so or worsening pain at night can result from ongoing tissue damage and development of tolerance to the prescribed medicine. 6. Please allow 2-3 days to process refills. Prescriptions will not be mailed but must be picked up at the office. FOLLOW UP VISIT: Keep your scheduled follow-up appointment. Any questions, please call the office at . Pending Studies at Discharge: No Stand-Alone Forms: My [facility] [employer], Smoking Cessation Medications and DC Order Prescriptions: New tramadol 50 mg tablet 50 mg PO Q6H PRN (Reason: pain, moderate) Qty: 30 RF: 0 oxycodone 5 mg tablet 5 mg PO Q6H PRN (Reason: pain, severe) Qty: 30 RF: 0 Continued Dexilant 60 mg Capsule,Biphase Delayed Releas 60 mg PO HS RF: 0 cetirizine [Zyrtec] 10 mg Tablet 10 mg PO HS RF: 0 atorvastatin 10 mg tablet 10 mg PO HS RF: 0 ondansetron HCl [Zofran] 4 mg Tablet 4 mg PO Q6H PRN (Reason: Nausea) RF: 0 pramipexole 0.5 mg Tablet 0.5 mg PO HS RF: 0 montelukast 10 mg tablet 10 mg PO HS RF: 0 sumatriptan succinate 6 mg/0.5 mL Pen Injector 6 mg SUBCUT DAILY PRN (Reason: Migraine Headache) RF: 0 Discharge Orders: Discharge Order (Routine); Ordered 12/31/20 Ordered By: Luke Mc Admission Data Admit Date/Time: 12/25/20 13:42 Attending Provider: Jesús Tabor Admit Provider: Luke Mc Primary Care Provider: Justin Olmstead Other Providers: Dylon Love ; Melissa Lowe ; Luke Mc ; Jesús Tabor
[2020-12-31] MEDS: ALUMINUM/MAGNESIUM SUSP 30 ML UDC PO PRN (13:25)
== END 2020-12-31 14:13 | disposition home or self-care (01) | DRG 454 ==
LOC: ED 10:36 → SUATTDRO 13:42 → EDINP 13:42 → 3E 15:39

== ENCOUNTER 2022-08-31 12:56 | Inpatient (IN) ==
[2022-08-31] MEDS ORDERED: PHARMACY GLYCEMIC MGMT CONSULT PRN (14:11)
[2022-08-31] MEDS ORDERED: PROMETHAZINE HCL 12.5 MG in SODIUM CHLORIDE 0.9% 50 ML IV PRN (14:11)
[2022-08-31] MEDS ORDERED: LORazepam 0.5 MG TAB PO PRN (14:11)
[2022-08-31] MEDS ORDERED: HYDROmorphone INJ 0.5 MG/0.5 ML SYR IV PRN (14:11)
[2022-08-31] MEDS ORDERED: ACETAMINOPHEN 500 MG TAB PO PRN (14:11)
[2022-08-31] MEDS ORDERED: METOCLOPRAMIDE HCL INJ 5 MG/ML 2 ML VIAL IV PRN (14:11)
[2022-08-31] MEDS ORDERED: NALOXONE HCL 0.4 MG/1 ML VIAL/CARP IV PRN (14:11)
[2022-08-31] MEDS ORDERED: ONDANSETRON 4 MG OD TAB PO PRN (14:11)
--- NOTE | 2022-08-31 14:42 | Consultation ---
Date of Consultation August 31, 2022 Assessment & Plan (1) Thoracolumbar radiculopathy due to intervertebral disc disorder: (2) DM type 2 (diabetes mellitus, type 2): Plan This is a 46-year-old female who has a significant past medical history of T2DM, HTN, allergic rhinitis, GERD, chronic low back pain, chronic pain syndrome, RLS, history of migraine, Rheumatoid arthritis and tobacco abuse history who presents as direct admission and we have been requested to see as consult for preoperative management. Severe canal narrowing with mild cord edema 2/2 DDD Ambulatory dysfunction pt directly admitted to [facility] by Dr. Mc for upcoming surgery will defer further orthopedic intervention, pain control per Dr. Mc obtain ecg for pre op, lab work Medication reconciliation was performed with patient and her [facility] T2DM hold metformin and ozempic diabetic diet, last a1c 5.09 May 2022 pt had a1c on > 24 Mar 2021 and has lost 80 lbs with diet and exercise and medications glycemic pharmacy on board Hx of HTN off metoprolol in setting of weight loss HLD continue statin Depression with anxiety on buspar and wellbutrin mood stable RLS continue pramipexole Tobacco abuse encourage cessation nicotine patch DVT ppx: SCDs Dispo: pt admitted to [facility] for upcoming surgery FULL CODE PCP: Carlitos Rain Pt was seen and examined in collaboration with Dr. Gamboa, please see addendum Thank you for this consultation. We will follow the patient with you during their hospital stay. You can reach a member of the [facility] Hospitalist Team 30/08 via hospitalist role on tiger text. Supervising Physician Co-Signing Physician Notes Patient was seen and examined with Melissa ARMAS at bedside in presence of spouse. Chart reviewed. Case discussed with Melissa ARMAS and agree with the documentation above. In summary, this is a 46 year old female with h/o DM-2, HTN, GERD, RA, tobacco abuse who is a direct admission under Dr Mc for thorcolumbar radiculopathy with plans for surgery in a day or two per patient. MRI L spine from yesterday shows At T10-T11 there are ligamentum flavum calcifications and facet spurring, left greater than right which cause severe canal narrowing and severe left foraminal narrowing with possible minimal cord edema. Hospitalist service consulted for periop management of his medical issues. C/o severe low back pain along with right lower extremity numbness, weakness and bladder bowel issues. Further management including pain meds, DVT chemoprophylaxis, activity, diet and surgery per orthopedics. Glycemic pharmacist managing his diabetes which is well controlled. Other chronic medical conditions stable. Rest as per the note above. On exam- Sitting in bed, in some discomfort due to pain, breathing comfortably in room air, AAO, chest clear, heart sounds normal, abd benign, no LE edema. RLE with decreased sensation and strength compared to the left. History of Present Illness Requesting Physician: Dr. Mc Reason for Consultation: Pre op med management Attending Physician: Luke Mc, DO History of Present Illness This is a 46-year-old female who has a significant past medical history of T2DM, HTN, allergic rhinitis, GERD, chronic low back pain, chronic pain syndrome, RLS, history of migraine, Rheumatoid arthritis and tobacco abuse history who presents as direct admission and we have been requested to see as consult for preoperative management. Pt had MRI in OP setting that revealed "MRI L spine a/p: IMPRESSION:At T10-T11 there are ligamentum flavum calcifications and facet spurring, left greater than right which cause severe canal narrowing and severe left foraminal narrowing with possible minimal cord edema. These findings are also identified in the recent CT study of the body.Findings raise concern for laminectomy at T8-T9 level since the spinous process is missing. Correlate with prior history.Posterior fusion throughout the lumbar spine." Her Last a1c was 5.2 in May 2022. She was seen by Dr. Mc in clinic today who referred her for direct admission and surgery. Currently she c/o RLE pain down entire leg and numbness/cool to R foot as well as decreased ROM and weakness. She also complains of nausea and dizzy when pain becomes severe. Pain also located in mid back and rated 10/10. She denies any f/c/s, chest pain, sob, n/v/d, abd pain. She does admit difficulty moving bowels/urinating last 1-2 days which is entirely new for her. Her is at bedside. Pt states she became a diabetic July with a1c 15. She lost 80 lbs intentionally with diet and exercise. She still smokes 1/2ppd and she states no one bothers me with that since I've given up so much. Allergies Allergy/AdvReac Type Severity Reaction Status Date / Time No Known Drug Allergies Allergy Unknown NONE Verified 08/31/22 14:54 Home Medications Medication Instructions Recorded Confirmed Type atorvastatin 10 mg tablet 10 mg PO QAM 12/25/20 08/31/22 History cetirizine 10 mg tablet (Zyrtec) 10 mg PO QAM 12/25/20 08/31/22 History pramipexole 0.5 mg tablet 0.5 mg PO HS 12/25/20 08/31/22 History cholecalciferol (vitamin D3) 50 50 mcg PO QPM 05/07/22 08/31/22 History mcg (2,000 unit) capsule (Vitamin D3) dulaglutide 0.75 mg/0.5 mL 0.75 mg subcut WK 05/07/22 08/31/22 History subcutaneous pen injector (Trulicity) metformin 500 mg tablet 500 mg PO QAM 05/07/22 08/31/22 History topiramate 50 mg tablet 50 mg PO BID 05/07/22 08/31/22 History oxycodone-acetaminophen 5 mg-325 1 - 2 tab PO .Q4h-6h PRN pain #30 05/13/22 08/31/22 Rx mg tablet (Percocet) tabs bupropion HCl 150 mg 24 hr tablet, 150 mg PO DAILY 08/31/22 08/31/22 History extended release buspirone 5 mg tablet 5 mg PO TID 08/31/22 08/31/22 History esomeprazole magnesium 40 mg 40 mg PO DAILY 08/31/22 08/31/22 History capsule,delayed release montelukast 10 mg tablet 10 mg PO DAILY 08/31/22 08/31/22 History Patient History Medical History (Updated 08/31/22 @ 15:11 by Melissa Lowe PA-C) Allergic asthma Chronic back pain Degenerative disc disease DM type 2 (diabetes mellitus, type 2) Recently dx'ed (02/2022) Dyslipidemia Fibromyalgia GERD (gastroesophageal reflux disease) H/O difficult intubation 11/05/13 - Glidescope #4, ETT #7.0, Atraumatic, GS x 1 without difficulty. Hiatal hernia History of TIA (transient ischemic attack) 03/20/22 -- admitted [facility] - states "it was from my blood sugar dropping too low to fast. It was no big deal. I only had to stay in the hospital for a night." - reports symptoms lasted "a few hours." Migraine Restless leg syndrome Surgical History Fusion of spine L4-L5, L5-S1. 11/05/13: Glidescope #4, ETT #7.0, Atraumatic, GS x 1 without difficulty. History of bilateral tubal ligation History of carpal tunnel release RIGHT - REMOVED CYST FROM RIGHT HAND AT SAME TIME History of section History of colonoscopy History of dilatation and curettage History of esophagogastroduodenoscopy (EGD) History of hysterectomy [place] WITH RSO History of left knee replacement History of right knee joint replacement History of spinal fusion [address] [facility] [address] Mc History of tonsillectomy History of tooth extraction Spinal cord stimulator status PLACED 2016, REMOVED 2017 Family History Father Family history of diabetes mellitus Grandfather (Paternal) Family history of diabetes mellitus Grandmother (Paternal) Family history of diabetes mellitus Social History Smoking Status: Current every day smoker Tobacco Type: Cigarettes Cigarettes Per Day: 10; Second Hand Exposure: No; Do You Dip or Chew Tobacco: No; Tobacco Cessation Education Requested by Patient: No Hx Alcohol Use: Yes Alcohol type: beer Hx Substance Use: No Preferred Language: Rwandan Communication Ability: Effective Booth Usher Required: No Beliefs That Will Affect Care: None marital status: Current Living Situation: Spouse Feels Safe at Home: Yes Safety Concerns: Feels Safe At This Time Assistive Devices: None Review of Systems Review of Systems: All systems reviewed & are unremarkable except as noted in HPI & below Physical Exam Physical Exam: Constitutional: WD/WN, vitals as above, NAD, sitting up in bed, pleasant, conversing easily Head: Normocephalic, Atraumatic Eyes: PERRL, conjunctivae normal, anicteric sclerae ENMT: external ear and nose normal, oropharynx normal Neck: trachea midline, no thyromegaly normal visual inspection Respiratory: normal respiratory effort, lungs clear to auscultation, no wheeze, rales, rhonchi. Normal insp/exp effort, no accessory muscle use Cardiovascular: RRR, no murmur, no edema Vessels: no JVD or carotid bruit Chest: normal inspection of chest Abdomen: normal bowel sounds, soft, nontender, no hepatosplenomegaly Musculoskeletal: no cyanosis or clubbing, RLE decreased ROM and sensation with straight leg raise Skin: no rashes, warm and dry normal turgor Neurologic: PERRL, EOMI, accommodation nl, no face palsy, no dysarthria CN's II-XI intact bilaterally and moves all extremities Psychiatric: A+Ox3, euthymic affect Lymphatic: no cervical or axillary lymphadenopathy : deferred Results & Data Vital Signs (Past 12 Hours) Vital Signs Temp Pulse Resp BP Pulse Ox O2 Del Method 08/31/22 13:47 36.4 C L 79 20 119/77 96 Room Air Diagnostic Findings MRI L spineIMPRESSION: At T10-T11 there are ligamentum flavum calcifications and facet spurring, left greater than right which cause severe canal narrowing and severe left foraminal narrowing with possible minimal cord edema. These findings are also identified in the recent CT study of the body. Findings raise concern for laminectomy at T8-T9 level since the spinous process is missing. Correlate with prior history. Posterior fusion throughout the lumbar spine. Medications Administered Current Inpatient Medications Acetaminophen (Acetaminophen 500 Mg Tab) 1,000 mg PO Q8H PRN PRN Reason: MILD Pain Scale 1,2,3 & Pre PT Stop: 09/30/22 14:10 Atorvastatin Calcium (Atorvastatin 10 Mg Tab) 10 mg PO QAM ELVIA Stop: 10/01/22 08:59 Cetirizine HCl (Cetirizine Hcl 10 Mg Tablet) 10 mg PO QAM ELVIA Stop: 10/01/22 08:59 Hydromorphone HCl (Hydromorphone Inj 0.5 Mg/0.5 Ml Syr) 0.5 mg IV Q3H PRN PRN Reason: MOD pain (scale 4-6) & Pre PT Stop: 09/14/22 14:10 Hydromorphone HCl (Hydromorphone Inj 1 Mg/Ml Syringe) 1 mg IV Q3H PRN PRN Reason: severe pain (scale 7-10) Stop: 09/14/22 14:10 Dexamethasone 8 mg/ Syringe 2 mls @ 1 mls/min IV Q8H ELVIA Stop: 09/01/22 06:31 Sodium Chloride (Nss 1000ml) 1,000 mls @ 75 mls/hr IV .[id number] ELVIA Stop: 09/30/22 14:14 Promethazine HCl 12.5 mg/ (Sodium Chloride) 50.5 mls @ 202 mls/hr IV Q6H PRN PRN Reason: Nausea &/or Vomiting Stop: 09/30/22 14:10 Acetaminophen (Ofirmev) 1,000 mg in 100 mls @ 400 mls/hr IV Q8H PRN PRN Reason: Pain Rating 1-3 & Pre PT Stop: 09/01/22 14:11 Cefazolin Sodium (Ancef 2000mg) 2,000 mg in 15 mls @ 3.75 mls/min IV PREOP ELVIA; Protocol Stop: 09/02/22 05:59 Lorazepam (Lorazepam 0.5 Mg Tab) 0.5 mg PO Q8H PRN PRN Reason: sedation/anxiety Stop: 09/30/22 14:10 Lorazepam (Lorazepam 2 Mg/1 Ml Vial) 0.5 mg IV Q8H PRN PRN Reason: Sedation/Anxiety Stop: 09/30/22 14:10 Metoclopramide HCl (Metoclopramide Hcl Inj 5 Mg/Ml 2 Ml Vial) 10 mg IV Q6H PRN PRN Reason: Nausea &/or Vomiting Stop: 09/30/22 14:10 Metoprolol Succinate (Metoprolol Succ 25mg Ext Rel Tab) 12.5 mg PO QAM [facility] Stop: 10/01/22 08:59 Miscellaneous Information (Pharmacy Glycemic Mgmt Consult) 1 each N/A UD PRN PRN Reason: Consult Stop: 09/30/22 14:10 Naloxone HCl (Naloxone Hcl 0.4 Mg/1 Ml Vial/Carp) 0.1 mg IV Q5M PRN PRN Reason: Oversedation/respiratory dep Stop: 09/30/22 14:10 Omeprazole (Omeprazole 20 Mg Capcr) 20 mg PO HS [facility] Stop: 09/30/22 20:59 Ondansetron HCl (Ondansetron Inj 2 Mg/Ml 2 Ml Vial) 4 mg IV Q6H PRN PRN Reason: Nausea &/or Vomiting Stop: 09/30/22 14:10 Ondansetron HCl (Ondansetron 4 Mg Od Tab) 4 mg PO Q6H PRN PRN Reason: Nausea Stop: 09/30/22 14:10 Oxycodone HCl (Oxycodone Hcl Ir 5 Mg Tab (Immediate Release)) 5 - 10 mg PO Q4H PRN PRN Reason: mod to severe pain Stop: 09/14/22 14:10 Pramipexole Dihydrochloride (Pramipexole Dihydrochlo 0.5 Mg Tab) 0.5 mg PO HS ELVIA Stop: 09/30/22 20:59 Topiramate (Topiramate 50 Mg Tab) 50 mg PO BID ELVIA Stop: 09/30/22 20:59
[2022-08-31] MEDS: HYDROmorphone INJ 1 MG/ML SYRINGE IV PRN ×3 (15:17→23:06)
[2022-08-31] MEDS: SODIUM CHLORIDE 0.9% 1000ML 1,000 ML IV SCH (15:17)
[2022-08-31 15:32] LABS: Hematocrit (blood only) 40.4 % (37.0-47.0); Hemoglobin 13.9 g/dl (12.0-16.0); Mean Corpuscular Hemoglobin 32.4 pg (25.0-34.0); Mean Corpuscular Volume 94.2 fL (80.0-100.0); Red Blood Count 4.29 M/uL (4.20-5.40); White Blood Count 7.78 K/ul (4.8-10.8)
[2022-08-31 15:33] LABS: Basophils # (auto) 0.06 K/uL (0-0.2); Basophils % (auto) 0.8 %; Eosinophils # (auto) 0.53 K/uL (0-0.50); Eosinophils % (auto) 6.8 %; Immature Granulocytes # (auto) 0.02 K/uL (0.01-0.20); Immature Granulocytes % (auto) 0.3 %; Lymphocytes # (auto) 2.79 K/uL (1.2-3.4); Lymphocytes % (auto) 35.9 %; Mean Corpuscular Hgb Conc 34.4 g/dL (32.0-36.0); Mean Platelet Volume 12.9 fL (9.4-12.4); Monocytes # (auto) 0.51 K/uL (0.11-0.59); Monocytes % (auto) 6.6 %; Neutrophils # (auto) 3.87 K/uL (1.40-6.50); Neutrophils % (auto) 49.6 %; Platelet Count 151 K/uL (130-400); RDW Coefficient of Variation 12.6 % (11.5-14.5); RDW Standard Deviation 43.8 fL (36.4-46.3)
--- NOTE | 2022-08-31 15:45 | Pharmacy Report ---
Pharmacy Glycemic Short Note 2 - Date of Service August 31, 2022 - Glycemic Short OUTPATIENT ANTIDIABETIC REGIMEN: * Trulicity 0.75 mg per week on Wednesdays * Metformin 500 mg PO QAM ASSESSMENT: * 46 y/o F admitted for spinal surgery today. Patient has history of Type 2 diabetes managed at home on Trulicity SQ and oral Metformin. * Will hold outpatient antidiabetes while admitted and utilize basal and bolus insulins for glycemic control. * Currently no blood sugars obtained on this admission and [facility] * IV Dexamethasone 8mg q8 hrs x 3 doses ordered. Expect BSGs to trend up this evening and tomorrow due to steroid. * Basal Lantus ordered on a scale for HS today. * Novolog parameters ordered based on stress of 3. PLAN FOR INPATIENT GLYCEMIC CONTROL: * Hold outpatient oral diabetes medications * Basal insulin * Lantus 0-15 units (based on BSG) SQ HS * Bolus insulin * NovoLog per scale ACHS or Q6hrs while NPO * Goal Range: Low 110 mg/dL - High 140 mg/dL * Correction Factor: 20 mg/dL/unit * Nutritional / Prandial insulin per carb ratio of 1 unit per 7 grams CHO consumed
[2022-08-31 15:50] LABS: Albumin Globulin Ratio 1.9 (0.9-2); Albumin Level 4.5 gm/dl (3.4-5.0); Bilirubin,Total 0.4 mg/dl (0.2-1.0); Calcium 9.8 mg/dl (8.6-10.3); Creatinine Clr Calc Pharmacy 82.3 ml/min; Est GFR (African American) 101.8 ml/min; Est GFR (Non-African American) 87.8 ml/min; Globulin 2.4 gm/dl (2.5-4.0); Potassium 3.6 mmol/L (3.5-5.1); Pregnancy Test, Serum Negative (Negative); Total Protein 6.9 gm/dl (6.0-8.3)
[2022-08-31] MEDS: dexAMETHasone 8 MG in SYRINGE 0 ML IV SCH ×2 (15:53→22:12)
[2022-08-31] MEDS: oxyCODONE HCL IR 5 MG TAB (IMMEDIATE RELEASE) PO PRN ×2 (16:23→21:04)
[2022-08-31] MEDS: ACETAMINOPHEN 1,000 MG/100 ML VIAL IV PRN (16:24)
[2022-08-31] MEDS: INSULIN ASPART PER UNIT CHARGE SC SCH ×2 (17:39→20:52)
[2022-08-31] MEDS: busPIRone 5 MG TAB PO SCH (20:16)
[2022-08-31] MEDS: PRAMIPEXOLE DIHYDROCHLO 0.5 MG TAB PO SCH (20:17)
[2022-08-31] MEDS: TOPIRAMATE 50 MG TAB PO SCH (20:18)
[2022-08-31] MEDS: LANTUS PER UNIT CHARGE SC SCH (20:53)
[2022-08-31] MEDS ORDERED: OMEPRAZOLE 20 MG CAPCR PO SCH (21:00)
[2022-08-31] MEDS: PANTOprazole 40 MG TAB PO SCH (21:04)
[2022-09-01] MEDS: ONDANSETRON INJ 2 MG/ML 2 ML VIAL IV PRN (00:16)
[2022-09-01] MEDS: oxyCODONE HCL IR 5 MG TAB (IMMEDIATE RELEASE) PO PRN ×3 (01:40→19:35)
[2022-09-01] MEDS: SODIUM CHLORIDE 0.9% 1000ML 1,000 ML IV SCH ×2 (03:20→18:52)
[2022-09-01] MEDS: HYDROmorphone INJ 1 MG/ML SYRINGE IV PRN ×5 (04:04→21:32)
[2022-09-01] MEDS ORDERED: ceFAZolin 2000MG 2,000 MG/15 ML SYR IV SCH (06:00)
[2022-09-01 06:53] LABS: Basophils # (auto) 0.01 K/uL (0-0.2); Basophils % (auto) 0.1 %; Hematocrit (blood only) 41.4 % (37.0-47.0); Hemoglobin 13.9 g/dl (12.0-16.0); Immature Granulocytes # (auto) 0.03 K/uL (0.01-0.20); Immature Granulocytes % (auto) 0.4 %; Lymphocytes # (auto) 0.95 K/uL (1.2-3.4); Lymphocytes % (auto) 13.3 %; Mean Corpuscular Hemoglobin 31.9 pg (25.0-34.0); Mean Corpuscular Hgb Conc 33.6 g/dL (32.0-36.0); Mean Platelet Volume 12.7 fL (9.4-12.4); Monocytes # (auto) 0.16 K/uL (0.11-0.59); Monocytes % (auto) 2.2 %; Neutrophils # (auto) 5.97 K/uL (1.40-6.50); Platelet Count 145 K/uL (130-400); RDW Coefficient of Variation 12.4 % (11.5-14.5); RDW Standard Deviation 43.4 fL (36.4-46.3); Red Blood Count 4.36 M/uL (4.20-5.40); White Blood Count 7.12 K/ul (4.8-10.8)
[2022-09-01 07:12] LABS: Calcium 9.5 mg/dl (8.6-10.3); Creatinine Clr Calc Pharmacy 87.7 ml/min; Est GFR (Non-African American) 94.9 ml/min; Potassium 3.9 mmol/L (3.5-5.1)
[2022-09-01] MEDS: dexAMETHasone 8 MG in SYRINGE 0 ML IV SCH (07:39)
--- NOTE | 2022-09-01 07:52 | History & Physical Report ---
Date of Service September 01, 2022 Assessment & Plan (1) Myelopathy concurrent with and due to spinal stenosis of thoracic region: Plan: MRI of the thoracic spine available for review does demonstrate severe spinal stenosis and evidence of cord compression with myelomalacia T10-T11. Patient said that Marcel decline in status neurologically I am recommending urgent decompression and fusion. Risk benefits pros cons alternatives were outlined in detail. Risk include but not limited to anesthesia blindness stroke paralysis nerve damage blood loss requiring transfusion infection requiring reoperation benefits hopefully stabilization of the thoracic spine improvement of her pain and with time and therapy improvement of her function. We will have her assessed medically for optimization and plan for surgery soon as possible. Admission and Anticipated Discharge Date Admission Date: August 31, 2022 History of Present Illness Chief Complaint: Severe back pain with bilateral leg weakness Primary Care Provider: Carlitos Rain MD This is a 46-year-old female well-known to me for this and marked decline in status over the past 4 weeks. She has had severe thoracolumbar back pain with radiation around her rib cage and progressive leg weakness described as heaviness and inability to stand and ambulate any distance. She denies any precipitating trauma fall or event. She had obtained an MRI urgently on the order of her primary care physician and see me the next day. She is having difficulty with urination but denies loss of bowel control at this time. Allergies Allergy/AdvReac Type Severity Reaction Status Date / Time No Known Drug Allergies Allergy Unknown NONE Verified 08/31/22 14:54 Home Medications Medication Instructions Recorded Confirmed Type atorvastatin 10 mg tablet 10 mg PO QAM 12/25/20 08/31/22 History cetirizine 10 mg tablet (Zyrtec) 10 mg PO QAM 12/25/20 08/31/22 History pramipexole 0.5 mg tablet 0.5 mg PO HS 12/25/20 08/31/22 History cholecalciferol (vitamin D3) 50 50 mcg PO QPM 05/07/22 08/31/22 History mcg (2,000 unit) capsule (Vitamin D3) dulaglutide 0.75 mg/0.5 mL 0.75 mg subcut WK 05/07/22 08/31/22 [facility] metformin 500 mg tablet 500 mg PO QAM 05/07/22 08/31/22 History topiramate 50 mg tablet 50 mg PO BID 05/07/22 08/31/22 History oxycodone-acetaminophen 5 mg-325 1 - 2 tab PO .Q4h-6h PRN pain #30 05/13/22 08/31/22 Rx mg tablet (Percocet) tabs bupropion HCl 150 mg 24 hr tablet, 150 mg PO DAILY 08/31/22 08/31/22 History extended release buspirone 5 mg tablet 5 mg PO TID 08/31/22 08/31/22 History esomeprazole magnesium 40 mg 40 mg PO DAILY 08/31/22 08/31/22 History capsule,delayed release montelukast 10 mg tablet 10 mg PO DAILY 08/31/22 08/31/22 History Past Med/Surg History Medical History (Updated 09/01/22 @ 07:51 by Luke Mc, ) Allergic asthma Chronic back pain Degenerative disc disease DM type 2 (diabetes mellitus, type 2) Recently dx'ed (02/2022) Dyslipidemia Fibromyalgia GERD (gastroesophageal reflux disease) H/O difficult intubation 11/05/13 - Glidescope #4, ETT #7.0, Atraumatic, GS x 1 without difficulty. Hiatal hernia History of TIA (transient ischemic attack) 03/20/22 -- admitted [facility] - states "it was from my blood sugar dropping too low to fast. It was no big deal. I only had to stay in the hospital for a night." - reports symptoms lasted "a few hours." Migraine Restless leg syndrome Surgical History Fusion of spine L4-L5, L5-S1. 11/05/13: Glidescope #4, ETT #7.0, Atraumatic, GS x 1 without difficulty. History of bilateral tubal ligation History of carpal tunnel release RIGHT - REMOVED CYST FROM RIGHT HAND AT SAME TIME History of section History of colonoscopy History of dilatation and curettage History of esophagogastroduodenoscopy (EGD) History of hysterectomy [place] WITH RSO History of left knee replacement History of right knee joint replacement History of spinal fusion [address] [facility] [address] Mc History of tonsillectomy History of tooth extraction Spinal cord stimulator status PLACED 2016, REMOVED 2018 Family History Father Family history of diabetes mellitus Grandfather (Paternal) Family history of diabetes mellitus Grandmother (Paternal) Family history of diabetes mellitus Social History Smoking Status: Current every day smoker Tobacco Type: Cigarettes Cigarettes Per Day: 10; Second Hand Exposure: No; Do You Dip or Chew Tobacco: No; Tobacco Cessation Education Requested by Patient: No Hx Alcohol Use: Yes Alcohol type: beer Hx Substance Use: No Preferred Language: Uzbek Communication Ability: Effective Tie Worker Required: No Beliefs That Will Affect Care: None marital status: Current Living Situation: Spouse Feels Safe at Home: Yes Safety Concerns: Feels Safe At This Time Assistive Devices: None Physical Exam Physical Exam: On exam patient presents in a wheelchair. She is unable to stand or walk any distance. She is in obvious to severe distress. She has a well-healed lumbar incision. There is no abnormal skin markings throughout the thoracic spine. She is able to stand for me with assistance. She has marked she has decreased sensation to light lower extremities. Negative logroll. 4/5 right dorsiflexion plantarflexion quadriceps to a 4+5 on the left. Deep tendon reflexes diminished. Results & Data Results & Data Vital Signs (Past 12 Hours) Vital Signs Temp Pulse Resp BP Pulse Ox O2 Del Method 09/01/22 07:42 36.6 C 82 18 117/77 96 Room Air 08/31/22 20:15 Room Air 08/31/22 20:06 36.4 C L 66 16 131/84 94 Room Air Code Status & VTE Plan VTE Prophylaxis Plan VTE Prophylaxis will be ordered: Yes
--- NOTE | 2022-09-01 08:18 | XRay Report ---
XR chest 1V portable HISTORY: 46 years-old Female pre op preoperative exam COMPARISON: 10/12/2013 TECHNIQUE: AP view of the chest FINDINGS: Cardiomediastinal and hilar silhouettes are within normal limits. No pneumothorax, pleural effusion, airspace consolidation or pulmonary edema. Bones appear grossly intact. Findings suggestive of prior resection of the distal left clavicle. Partially imaged lumbar spinal fusion hardware. IMPRESSION: No acute process. ACT 112: Negative or not required by law. The above report was generated using voice recognition software. It may contain grammatical, syntax o r spelling errors. Electronically signed by: Edil Whatley M.D. 09/01/2022 8:17 AM
[2022-09-01] MEDS ORDERED: METOPROLOL SUCC 25MG EXT REL TAB PO SCH (09:00)
[2022-09-01 09:12] LABS: Estimated Average Glucose 111 mg/dl; Hemoglobin A1C 5.5 % (4.5-5.6)
--- NOTE | 2022-09-01 09:29 | Electrocardiogram Report ---
Test Reason : Blood Pressure : / mmHG Vent. Rate : 059 BPM Atrial Rate : 059 BPM P-R Int : 122 ms QRS Dur : 090 ms QT Int : 462 ms P-R-T Axes : 040 024 026 degrees QTc Int : 457 ms Sinus bradycardia with sinus arrhythmia Otherwise normal ECG When compared with ECG of 12-OCT-2013 10:04, No significant change was found Confirmed by Bobby Whitfield ([id number]) on 09/01/2022 9:11:32 AM Referred By: Luke Mc Confirmed By:Bobby Whitfield
[2022-09-01] MEDS ORDERED: SOD PHOSPHATE/SOD BIPHOSPHATE ENEMA 132 ML BTL PR STA ×2 (09:40→12:00)
--- NOTE | 2022-09-01 09:44 | Pharmacy Report ---
Pharmacy Glycemic Short Note 2 - Date of Service September 01, 2022 - Glycemic Short BSG Results (Last 24 hours): 08/31/22 08/31/22 08/31/22 15:06 17:15 20:36 Glucose 78 POC Glucose 89 106 H 08/31/22 09/01/22 09/01/22 22:36 06:32 08:06 Glucose 121 H POC Glucose 128 H 114 H OUTPATIENT ANTIDIABETIC REGIMEN: * Trulicity 0.75 mg per week on Wednesdays * Metformin 500 mg PO QAM ASSESSMENT: 09/01/22 * Patient with severe spinal stenosis and evidence of cord compression with myelomalacia T10-T11, seen by Dr Mc today, planning to do surgery as soon as possible. * Patient euglycemic, had only 4 units of NovoLog yesterday, had 3 doses of Dexamethasone 8mg IV over past 24 hours. * Continue insulin as ordered. 08/31/22 * 46 y/o F admitted for spinal surgery today. Patient has history of Type 2 diabetes managed at home on Trulicity SQ and oral Metformin. * Will hold outpatient antidiabetes while admitted and utilize basal and bolus insulins for glycemic control. * Currently no blood sugars obtained on this admission and no recent sugars reported in [employer]. * IV Dexamethasone 8mg q8 hrs x 3 doses ordered. Expect BSGs to trend up this evening and tomorrow due to steroid. * Basal Lantus ordered on a scale for HS today. * Novolog parameters ordered based on stress of 3. PLAN FOR INPATIENT GLYCEMIC CONTROL: * Hold outpatient oral diabetes medications * Basal insulin * Lantus 0-15 units (based on BSG) SQ HS * Bolus insulin * NovoLog per scale ACHS or Q6hrs while NPO * Goal Range: Low 110 mg/dL - High 140 mg/dL * Correction Factor: 30 mg/dL/unit * Nutritional / Prandial insulin per carb ratio of 1 unit per 10 grams CHO consumed
[2022-09-01] MEDS: INSULIN ASPART PER UNIT CHARGE SC SCH ×4 (10:10→21:13)
[2022-09-01] MEDS: ATORVASTATIN 10 MG TAB PO SCH (10:13)
[2022-09-01] MEDS: busPIRone 5 MG TAB PO SCH ×3 (10:14→19:35)
[2022-09-01] MEDS: buPROPion XL 150 MG TABCR PO SCH (10:14)
[2022-09-01] MEDS: MONTELUKAST SODIUM 10 MG TABLET PO SCH (10:15)
[2022-09-01] MEDS: CETIRIZINE HCL 10 MG TABLET PO SCH (10:15)
[2022-09-01] MEDS: NICOTINE 21 MG/24 HR TDSY TD SCH (10:17)
[2022-09-01] MEDS: TOPIRAMATE 50 MG TAB PO SCH ×2 (10:18→19:36)
[2022-09-01] MEDS: ACETAMINOPHEN 1,000 MG/100 ML VIAL IV PRN (10:19)
--- NOTE | 2022-09-01 15:01 | Hospitalist Progress Note ---
Date of Service September 01, 2022 Assessment & Plan (1) Thoracolumbar radiculopathy due to intervertebral disc disorder: (2) DM type 2 (diabetes mellitus, type 2): Plan This is a 46-year-old female who has a significant past medical history of T2DM, HTN, allergic rhinitis, GERD, chronic low back pain, chronic pain syndrome, RLS, history of migraine, Rheumatoid arthritis and tobacco abuse history who presents as direct admission and we have been requested to see as consult for preo perative management. Severe canal narrowing with mild cord edema 2/2 DDD Outpatient MRI: At T10-T11 there are ligamentum flavum calcifications and facet spurring, left greater than right which cause severe canal narrowing and severe left foraminal narrowing with possible minimal cord edema. These findings are also identified in the recent CT study of the body.Findings raise concern for laminectomy at T8-T9 level since the spinous process is missing. Correlate with prior history.Posterior fusion throughout the lumbar spine." Direct admission by Dr. Mc for surgical management Labs, EKG, and CXR reviewed. Patient denies cardiopulmonary complaints. Patient considered acceptable risk to proceed with surgery. Further management as per spine Ortho T2DM hold metformin and ozempic diabetic diet, last a1c 5.09 May 2022 pt had a1c on > 24 Mar 2021 and has lost 80 lbs with diet and exercise and medications glycemic pharmacy on board Depression with anxiety on buspar and wellbutrin Patient tearful during exam today, requesting psychiatry consult. Denies suicidal or homicidal thoughts. Hx of HTN off metoprolol in setting of weight loss HLD continue statin RLS continue pramipexole Tobacco abuse encourage cessation nicotine patch DVT ppx TEDs/SCDs as per spine Ortho Patient seen in collaboration with Dr. Tam. Thank you for this consultation. We will follow the patient with you during their hospital stay. You can reach a member of the [facility] Hospitalist Team 30/08 via hospitalist role on tiger text. Admission and Anticipated Discharge Date Admission Date: August 31, 2022 Supervising Physician Co-Signing Physician Notes Patient was seen and examined independently. Chart reviewed. Case discussed with KESHAWN Subjective Follow-up for medical management, thoracolumbar radiculopathy. Patient seen and examined. Patient tearful at times during exam and requesting to be evaluated by psychiatry. Denies suicidal or homicidal thoughts. Patient states she is having significant back pain with associated numbness and weakness in the right lower extremity. States she feels constipated. She is urinating without difficulty. Denies chest pain and shortness of breath. No abdominal pain or nausea. Physical Exam Constitutional: WD/WN, vitals as above no acute distress Respiratory: normal respiratory effort, lungs clear to auscultation Cardiovascular: Rate/Rhythm: regular rate and regular rhythm Vessels: normal peripheral pulses Extremities: no edema Gastrointestinal (Abdomen): Percussion/Palpation: abdomen soft; abdomen nontender Musculoskeletal: Significant back pain with minimal movement, reduced sensation in strength in the right lower extremity 3-4/5 Skin: no rashes, warm and dry Neurologic: no focal motor deficits Psychiatric: Orientation: alert and oriented x 3 Affect: + tearful affect Results & Data Results & Data Vital Signs (Past 12 Hours) Vital Signs Temp Pulse Resp BP Pulse Ox O2 Del Method 09/01/22 14:40 36.7 C 70 16 113/73 98 Room Air 09/01/22 07:46 Room Air 09/01/22 07:42 36.6 C 82 18 117/77 96 Room Air Laboratory Results Short CBC 08/31/22 09/01/22 Range/Units 15:06 06:32 WBC 7.78 7.12 (4.8-10.8) K/ul Hgb 13.9 13.9 (12.0-16.0) g/dl Hct 40.4 41.4 (37.0-47.0) % Plt Count 151 145 (130-400) K/uL BMP 08/31/22 09/01/22 15:06 06:32 Sodium 138 135 L Potassium 3.6 3.9 Chloride 107 107 Carbon Dioxide 22 23 BUN 12 12 Creatinine 0.80 0.75 Glucose 78 121 H Calcium 9.8 9.5 Liver Function 08/31/22 Range/Units 15:06 Total Bilirubin 0.4 (0.2-1.0) mg/dl AST 14 (13-39) U/L ALT 28 (7-52) U/L Alkaline Phosphatase 110 H (34-104) U/L Albumin 4.5 (3.4-5.0) gm/dl
[2022-09-01] MEDS: LORazepam 2 MG/1 ML VIAL IV PRN ×2 (15:14→23:24)
[2022-09-01] MEDS: PANTOprazole 40 MG TAB PO SCH (19:36)
[2022-09-01] MEDS: PRAMIPEXOLE DIHYDROCHLO 0.5 MG TAB PO SCH (19:36)
[2022-09-01] MEDS: LANTUS PER UNIT CHARGE SC SCH (21:14)
--- NOTE | 2022-09-01 21:38 | Anesthesiology Consultation ---
Date of Service September 01, 2022 Assessment & Plan Chart Review Chart Review: Acceptable Risk for Surgery Consider RSI given outpt ozempic use Consults Requested none History Surgery Operation Date: 09/02/22 07:45 Proposed Procedures p T10-T11 Decompression Fusion and Instrumentation, Spinal Cord Monitoring - Luke Mc DO Height/Weight Height: 5 ft Weight: 81.601 kg Allergies Allergy/AdvReac Type Severity Reaction Status Date / Time No Known Drug Allergies Allergy Unknown NONE Verified 08/31/22 14:54 Medications Home Medications Medication Instructions Recorded Confirmed Last Taken atorvastatin 10 mg tablet 10 mg PO QAM 12/25/20 08/31/22 05/12/22 08:00 cetirizine 10 mg tablet (Zyrtec) 10 mg PO QAM 12/25/20 08/31/22 05/12/22 08:00 pramipexole 0.5 mg tablet 0.5 mg PO HS 12/25/20 08/31/22 05/12/22 19:00 cholecalciferol (vitamin D3) 50 50 mcg PO QPM 05/07/22 08/31/22 05/12/22 19:00 mcg (2,000 unit) capsule (Vitamin D3) dulaglutide 0.75 mg/0.5 mL 0.75 mg subcut WK 05/07/22 08/31/22 05/12/22 06:00 subcutaneous pen injector (Trulicity) metformin 500 mg tablet 500 mg PO QAM 05/07/22 08/31/22 05/12/22 06:00 topiramate 50 mg tablet 50 mg PO BID 05/07/22 08/31/22 05/13/22 05:30 oxycodone-acetaminophen 5 mg-325 1 - 2 tab PO .Q4h-6h PRN pain #30 05/13/22 08/31/22 Unknown mg tablet (Percocet) tabs bupropion HCl 150 mg 24 hr tablet, 150 mg PO DAILY 08/31/22 08/31/22 Unknown extended release buspirone 5 mg tablet 5 mg PO TID 08/31/22 08/31/22 Unknown esomeprazole magnesium 40 mg 40 mg PO DAILY 08/31/22 08/31/22 Unknown capsule,delayed release montelukast 10 mg tablet 10 mg PO DAILY 08/31/22 08/31/22 Unknown Active Medications Generic Name Dose Route Start Last Admin Trade Name Freq PRN Reason Stop Dose Admin Atorvastatin Calcium 10 mg 09/01/22 09:00 09/01/22 10:13 Atorvastatin 10 Mg Tab PO 10/01/22 08:59 10 mg QAM ELVIA Administration Bupropion HCl 150 mg 09/01/22 09:00 09/01/22 10:14 Bupropion Xl 150 Mg Tabcr PO 10/01/22 08:59 150 mg DAILY ELVIA Administration Buspirone HCl 5 mg 08/31/22 21:00 09/01/22 19:35 Buspirone 5 Mg Tab PO 09/30/22 20:59 5 mg TID ELVIA Administration Cetirizine HCl 10 mg 09/01/22 09:00 09/01/22 10:15 Cetirizine Hcl 10 Mg Tablet PO 10/01/22 08:59 10 mg QAM ELVIA Administration Hydromorphone HCl 1 mg 08/31/22 14:11 09/01/22 21:32 Hydromorphone Inj 1 Mg/Ml Syringe IV 09/14/22 14:10 1 mg Q3H PRN Administration severe pain (scale 7-10) Sodium Chloride 1,000 mls @ 75 mls/hr 08/31/22 14:15 09/01/22 18:52 Nss 1000ml IV 09/30/22 14:14 75 mls/hr .[id number] ELVIA Administration Promethazine HCl 12.5 mg/ 50.5 mls @ 202 mls/hr 08/31/22 14:11 09/01/22 01:56 Sodium Chloride IV 09/30/22 14:10 Infused Q6H PRN Infusion Nausea &/or Vomiting Insulin Aspart 0 units 08/31/22 16:30 09/01/22 21:13 Insulin Aspart Per Unit Charge SC 09/30/22 16:29 Not Given ACHS ELVIA Insulin Glargine 0 units 08/31/22 21:00 09/01/22 21:14 Lantus Per Unit Charge SC 09/30/22 20:59 Not Given HS ELVIA Protocol Lorazepam 0.5 mg 08/31/22 14:11 09/01/22 15:14 Lorazepam 2 Mg/1 Ml Vial IV 09/30/22 14:10 0.5 mg Q8H PRN Administration Sedation/Anxiety Miscellaneous 1 each 09/01/22 08:59 09/01/22 10:17 Remove Nicoderm Patch N/A 10/01/22 08:58 1 each DAILY@0859 ELVIA Administration Montelukast Sodium 10 mg 09/01/22 09:00 09/01/22 10:15 Montelukast Sodium 10 Mg Tablet PO 10/01/22 08:59 10 mg DAILY ELVIA Administration Nicotine 21 mg 09/01/22 09:00 09/01/22 10:17 Nicotine 21 Mg/24 Hr Tdsy TD 10/01/22 08:59 Not Given QAM ELVIA Ondansetron HCl 4 mg 08/31/22 14:11 09/01/22 00:16 Ondansetron Inj 2 Mg/Ml 2 Ml Vial IV 09/30/22 14:10 4 mg Q6H PRN Administration Nausea &/or Vomiting Ondansetron HCl 4 mg 08/31/22 14:11 08/31/22 14:50 Ondansetron 4 Mg Od Tab PO 09/30/22 14:10 4 mg Q6H PRN Administration Nausea Oxycodone HCl 5 - 10 mg 08/31/22 14:11 09/01/22 19:35 Oxycodone Hcl Ir 5 Mg Tab (Immediate Release) PO 09/14/22 14:10 10 mg Q4H PRN Administration mod to severe pain Pantoprazole Sodium 40 mg 08/31/22 21:00 09/01/22 19:36 Pantoprazole 40 Mg Tab PO 09/30/22 20:59 40 mg HS ELVIA Administration Protocol Pramipexole Dihydrochloride 0.5 mg 08/31/22 21:00 09/01/22 19:36 Pramipexole Dihydrochlo 0.5 Mg Tab PO 09/30/22 20:59 0.5 mg HS EVLIA Administration Topiramate 50 mg 08/31/22 21:00 09/01/22 19:36 Topiramate 50 Mg Tab PO 09/30/22 20:59 50 mg BID ELVIA Administration Past Medical History Medical History (Updated 09/01/22 @ 21:30 by Magda Miles DO) Allergic asthma Chronic back pain Degenerative disc disease DM type 2 (diabetes mellitus, type 2) Recently dx'ed (02/2022) Dyslipidemia Fibromyalgia GERD (gastroesophageal reflux disease) H/O difficult intubation 11/05/13 - Glidescope #4, ETT #7.0, Atraumatic, GS x 1 without difficulty. Hiatal hernia History of TIA (transient ischemic attack) 03/20/22 -- initially thought to be a TIA, later determined to be complex migraine. No residual deficits Migraine Restless leg syndrome -PCP response (05/12/22): "Hospital follow-up note addended to reflect correct hospitalization diagnosis of complex migraine." -Updated PCP note (04/14/22): "Recent Admission: Patient was recently admitted to [facility]. The date of discharge was 03/21/2022. Discharge report received and revie tue. HPI: She stated that she was seen for mini stroke,upon review of discharge summary it was believed that symptoms were due to complex migraine given the negative workup during her stay. All symptoms are resolved.She was told to discontinue Imitrex due to being on metformin. She was started on topomax with some relief of migraine headaches, but is still having some breakthrough. She would like to increase the dose. Restless legs. Feels that the requip she has been on in the past was more helpful than mirapex she is on now. She would like to try increasing dose of mirapex. If this does not help she would like to go back on requip. Diabetes bsg readings are between 80-116. She feels hypoglycemic 80 or lower knows to eat some carbs. She also does not feel well if above 116.. Continue current medications. Recheck A1C in 1 month. BSG at home appear to be well controlled upon review of recent readings on meter. Follow-up with MTM as scheduled.. PLAN: Continue p resent medication(s): Change dose of medication(s) to increase topamax to 50 mg bid, increase requip to 0.5 mg hs.. Follow up as needed and in 2 month(s)." Per discharge summary 03/21/22=Pt admitted 03/20/22 for left sided facial droop and left sided weakness with headache. Likely complicated migraines based on negative work up.ASA and Plavix given while admitted- does not need to continue at discharge. Will discharge on Topamax and metoprolol daily to help with migraine treatment. Continue triptan therapy. Midsternal chest pain- troponin negative x 3. Cardiac telemetry- initial EKG nonacute, repeat AM no acute. ECHO reviewed. Recommend outpatient sleep study and PFTs. DM- newly dx'ed. Follow up with PCP. Polycythemia- encouraged smoking cessation- PFTs and sleep study. Exercise / Class Metabolic Activity II 4-5 Yardwork/Stairs/Walk up hill Past Family History Family History Father Family history of diabetes mellitus Grandfather (Paternal) Family history of diabetes mellitus Grandmother (Paternal) Family history of diabetes mellitus Past Surgical History Surgical History (Updated 09/01/22 @ 21:34 by Magda Miles, DO) Fusion of spine L4-L5, L5-S1. 11/05/13: Glidescope #4, ETT #7.0, Atraumatic, GS x 1 without difficulty. History of arthroscopy of left shoulder Left Shoulder Arthroscopic Subacromial Decompression, Distal Clavicle Excision, Rotator Cuff Repair with [employer] History of bilateral tubal ligation History of carpal tunnel release RIGHT - REMOVED CYST FROM RIGHT HAND AT SAME TIME History of section History of colonoscopy History of dilatation and curettage History of esophagogastroduodenoscopy (EGD) History of hysterectomy VALENCIA WITH RSO History of left knee replacement History of right knee joint replacement History of spinal fusion [address] [facility] [address] Mc History of tonsillectomy History of tooth extraction Spinal cord stimulator status PLACED 2016, REMOVED 2017 Past Anesthesia History No Hx of Anesthesia Complications, Difficult Airway (glide #4 w/o difficulty) and No Family Hx of Anesthesia Complications History of PONV No Hx of PONV and No Hx of Motion Sickness Social History Smoking Status: Current every day smoker tobacco type: cigarettes Smoking cigarettes per day: 10 Do You Dip or Chew Tobacco: No Hx Alcohol Use: Yes Alcohol type: beer alcohol intake frequency: holidays/special occasions only Hx Substance Use: No substance use type: does not use Physical Exam Vital Signs Last Vital Signs Temp 36.4 C L 09/01/22 16:17 Pulse 85 09/01/22 16:17 Resp 20 09/01/22 16:17 BP 137/73 09/01/22 16:17 Pulse Ox 97 09/01/22 16:17 O2 Del Method Room Air 09/01/22 19:30 Testing Laboratory Results 09/01/22 06:32 09/01/22 06:32 Hemoglobin A1c 5.5 % (4.5-5.6) 09/01/22 06:32 Blood Type O Positive 08/31/22 15:17 Antibody Screen NEGATIVE 08/31/22 15:17 09/01/22 09/01/22 09/01/22 21:06 16:58 16:16 POC Glucose 102 H 103 H 104 H 09/01/22 11:46 POC Glucose 106 H MRI of the brain 03/21/2022= No acute processes could be detected CT head 03/20/2022= no acute processes can be detected CTA of head and neck 03/20/2022 =no acute processes could be detected Event monitor 04/04/2022= minimum heart rate 51 bpm, max heart rate 146 bpm, average heart rate 82 bpm. Predominant underlying rhythm was sinus rhythm. 1 run of nonsustained SVT. Isolated SVE's were rare, SVE couplets were rare, no SVE triplets were present. Isolated VE's were rare. No VE couplets or VE triplets were present. Reported symptoms and triggered events are associated with sinus rhythm. No arrhythmias present. Chest X-Ray Date: 04/19/22 Findings: + NAD Echocardiogram Date: 03/21/22 EF: 55-60% LV Function: normal Other Findings: + LVH (Borderline); no diastolic dysfunction Normal saline contrast injection without evidence of right to left intracardiac shunt. Microbubble contrast with Definity was administered for LV opacification Electrocardiogram Date: 08/31/22 Findings: + SB @ (59)
[2022-09-02] MEDS: ONDANSETRON INJ 2 MG/ML 2 ML VIAL IV PRN (00:23)
[2022-09-02] MEDS: oxyCODONE HCL IR 5 MG TAB (IMMEDIATE RELEASE) PO PRN ×3 (03:30→19:45)
[2022-09-02] MEDS: HYDROmorphone INJ 1 MG/ML SYRINGE IV PRN ×4 (04:42→22:55)
[2022-09-02] MEDS: INSULIN ASPART PER UNIT CHARGE SC SCH ×4 (05:54→20:48)
[2022-09-02 06:17] LABS: Basophils # (auto) 0.02 K/uL (0-0.2); Basophils % (auto) 0.2 %; Eosinophils # (auto) 0.03 K/uL (0-0.50); Eosinophils % (auto) 0.2 %; Hematocrit (blood only) 36.9 % (37.0-47.0); Hemoglobin 12.7 g/dl (12.0-16.0); Immature Granulocytes # (auto) 0.05 K/uL (0.01-0.20); Immature Granulocytes % (auto) 0.4 %; Lymphocytes % (auto) 18.4 %; Mean Corpuscular Hemoglobin 32.1 pg (25.0-34.0); Mean Corpuscular Hgb Conc 34.4 g/dL (32.0-36.0); Mean Corpuscular Volume 93.2 fL (80.0-100.0); Monocytes # (auto) 0.86 K/uL (0.11-0.59); Monocytes % (auto) 6.6 %; Neutrophils # (auto) 9.69 K/uL (1.40-6.50); Neutrophils % (auto) 74.2 %; Platelet Count 142 K/uL (130-400); RDW Coefficient of Variation 12.4 % (11.5-14.5); RDW Standard Deviation 42.7 fL (36.4-46.3); Red Blood Count 3.96 M/uL (4.20-5.40); White Blood Count 13.05 K/ul (4.8-10.8)
[2022-09-02 06:39] LABS: BUN Creatinine Ratio 16.7 (10-20); Calcium 9.2 mg/dl (8.6-10.3); Creatinine Clr Calc Pharmacy 84.4 ml/min; Est GFR (African American) 104.9 ml/min; Est GFR (Non-African American) 90.5 ml/min; Potassium 3.4 mmol/L (3.5-5.1)
[2022-09-02] MEDS ORDERED: LIDOCAINE 2% 2 ML VIAL/AMP(20MG/ML) INFIL ONE (07:25)
[2022-09-02] MEDS ORDERED: ROCURONIUM BROMIDE 10 MG/ML 5 ML VIAL IV ONE (07:25)
[2022-09-02] MEDS ORDERED: MIDAZOLAM HCL 1 MG/ML 2ML VIAL ONE (07:25)
[2022-09-02] MEDS ORDERED: PROPOFOL IV EMULSION 10 MG/ML 20 ML VIAL IV ONE (07:25)
[2022-09-02] MEDS ORDERED: fentaNYL citrate PF 100 MCG/2 ML VIAL ONE (07:26)
[2022-09-02] MEDS ORDERED: ceFAZolin 330 MG/ML 1 GM VIAL ONE (07:33)
[2022-09-02] MEDS ORDERED: BUPIVACAINE/EPINEPHRINE 0.25% 1:200,000 30 ML VIAL ONE (07:33)
--- NOTE | 2022-09-02 07:45 | History & Physical Bridge Note ---
Date of Service September 02, 2022 History & Physical Bridge Note I have examined the patient, reviewed the History & Physical and in the interval since the performance of the History & Physical I have noted the following changes of clinical significance: no changes noted T10- T11 decompression and fusion
[2022-09-02] MEDS ORDERED: KETAMINE 50 MG/5 ML SYRINGE ONE (08:00)
[2022-09-02] MEDS ORDERED: PROMETHAZINE HCL 12.5 MG in SODIUM CHLORIDE 0.9% 50 ML IV PRN ×2 (08:18→10:45)
[2022-09-02] MEDS ORDERED: ePHEDrine sulfate 50 MG/ML AMP IV PRN (08:18)
[2022-09-02] MEDS ORDERED: ATROPINE SULFATE 0.1 MG/ML 10ML SYR IV PRN (08:18)
[2022-09-02] MEDS ORDERED: ONDANSETRON INJ 2 MG/ML 2 ML VIAL IV PRN ×2 (08:18→10:45)
[2022-09-02] MEDS ORDERED: FLOSEAL HEMOSTATIC MATRIX 10ML TOP ONE (09:27)
[2022-09-02] MEDS ORDERED: ONDANSETRON INJ 2 MG/ML 2 ML VIAL ONE (09:34)
[2022-09-02] MEDS ORDERED: GLYCOPYRROLATE 0.2 MG/ML VIAL ONE (09:34)
[2022-09-02] MEDS ORDERED: NEOSTIGMINE METHYLSULFATE 1 MG/ML 10ML VIAL ONE (09:34)
[2022-09-02] MEDS ORDERED: DEXAMETHASONE SOD INJ 4 MG/ML VIAL ONE (09:34)
--- NOTE | 2022-09-02 09:40 | Operative Report ---
Post Operative Report Pre & Post Diagnosis Operation Date: 09/02/22 07:45 Pre-Op Diagnosis: Thoracic Myelpathy Spinal Stenosis Post-Op Diagnosis: Thoracic Myelpathy Spinal Stenosis I identified the patient and participated in the time-out.: Yes Procedure Operation Date: 09/02/22 07:45 Actual Procedures 1. Decompression bilaterally facetectomies and foraminotomies T10-T11. #2 posterior spinal fusion T10-T11. #3 placed posterior instrumentation T10-T11. #4 interbody fusion at T10-T11. #5 placement of Spira 8 mm cage T10-T11. #6 placement of locally harvested morselized autograft and posterior gutters. #7 placement of I factor in the interbody space and infuse collagen sponge bone mass graft in the posterior lateral gutters. Surgeon Luke Mc, DO Patient Safety Sitter Lu Ro Estimated Blood Loss 50 Findings Consistent with Post-Op Diagnosis The patient is 5 foot tall weighing over 81 kg with a BMI in excess of 35. Patient's body habitus did contribute to significant technical difficulty and at least 50% increased operative time. Specimens none Indications This is a 46-year-old female who presents with marked decline in status evidence of severe thoracic spinal stenosis and myelopathy is here for urgent decompression and fusion. Description of Procedure Patient was met with identified informed consent obtained. Patient was then taken to the operative suite underwent a patient placed in a prone position the [facility] top Phil frame. All bony promises well-padded eyes inspected to ensure no external pressure placed monitor at this point the thoracolumbar spine was prepped and draped in a sterile fashion. Sharp dissection with the assistance of Bovie cautery to form down to and exposing the lamina and transverse processes of T10 and T11. A complete laminectomy of T10 was then performed including bilateral medial facetectomies and foraminotomies addressing severe spinal stenosis. Pedicle screws were then placed in T10-T11 bilaterally with assistance of fluoroscopy. By way of a transforaminal portion right complete discectomy of T10-T11 was performed endplates curetted to subcortical bleeding bone and an 8 mm Spira cage with I factor tapped in position. The appropriate rods were placed locked in position and the transverse processes of T10-T11 burred to subcortically bone. Infuse bone sponge bone mass graft was placed in the posterior gutters. 15 round FACUNDO inserted. The incision was then closed with 1 Vicryl the fascia 2-0 Vicryl subcutaneously and 4 Monocryl for final skin closure. Steri-Strips sterile dressing placed. Patient waken taken to PACU in a stable condition. Please note spinal cord monitoring visualized at the procedure no changes noted. Lastly Lu Ro was present at the entire surgeon while the patient positioning complex portions of the surgery and final skin closure. I attest to the content of the Intraoperative Record and any orders documented therein. Any exceptions are noted below.
[2022-09-02] MEDS: fentaNYL citrate PF 100 MCG/2 ML VIAL IV PRN ×2 (09:53→09:58)
[2022-09-02] MEDS: HYDROmorphone INJ 2 MG/ML SYR/VIAL IV PRN ×4 (10:03→10:18)
[2022-09-02] MEDS ORDERED: LORazepam 0.5 MG TAB PO PRN (10:45)
[2022-09-02] MEDS ORDERED: bisacodyL 10 MG SUPP PR PRN (10:45)
[2022-09-02] MEDS ORDERED: DO NOT ADMINISTER FLU VACCINE PRN (10:45)
[2022-09-02] MEDS ORDERED: ALUMINUM/MAGNESIUM SUSP 30 ML UDC PO PRN (10:45)
[2022-09-02] MEDS ORDERED: FAMOTIDINE 20 MG TAB PO PRN (10:45)
[2022-09-02] MEDS ORDERED: ACETAMINOPHEN 500 MG TAB PO PRN (10:45)
[2022-09-02] MEDS ORDERED: SOD PHOSPHATE/SOD BIPHOSPHATE ENEMA 132 ML BTL PR PRN (10:45)
[2022-09-02] MEDS ORDERED: hydrOXYzine HCl 25 MG TAB PO PRN (10:45)
[2022-09-02] MEDS ORDERED: ACETAMINOPHEN 1,000 MG/100 ML VIAL IV PRN (10:45)
[2022-09-02] MEDS ORDERED: DO NOT ADMINISTER PNEUMOCOCCAL VACCINE PRN (10:45)
[2022-09-02] MEDS ORDERED: METOCLOPRAMIDE HCL INJ 5 MG/ML 2 ML VIAL IV PRN (10:45)
[2022-09-02] MEDS ORDERED: LORazepam 2 MG/1 ML VIAL IV PRN (10:45)
[2022-09-02] MEDS ORDERED: MAGNESIUM HYDROXIDE SUSP 30 ML UDC PO PRN (10:45)
[2022-09-02] MEDS ORDERED: NALOXONE HCL 0.4 MG/1 ML VIAL/CARP IV PRN (10:45)
[2022-09-02] MEDS ORDERED: diphenhydrAMINE Capsule 25 MG CAP PO PRN (10:45)
[2022-09-02] MEDS ORDERED: ONDANSETRON 4 MG OD TAB PO PRN (10:45)
[2022-09-02] MEDS: SODIUM CHLORIDE 0.9% 1000ML 1,000 ML IV SCH (11:15)
[2022-09-02] MEDS: NICOTINE 21 MG/24 HR TDSY TD SCH (11:16)
[2022-09-02] MEDS: MONTELUKAST SODIUM 10 MG TABLET PO SCH (11:21)
[2022-09-02] MEDS: ATORVASTATIN 10 MG TAB PO SCH (11:21)
[2022-09-02] MEDS: TOPIRAMATE 50 MG TAB PO SCH ×2 (11:22→19:40)
[2022-09-02] MEDS: CETIRIZINE HCL 10 MG TABLET PO SCH (11:22)
[2022-09-02] MEDS: busPIRone 5 MG TAB PO SCH ×3 (11:22→19:40)
[2022-09-02] MEDS: buPROPion XL 150 MG TABCR PO SCH (11:22)
--- NOTE | 2022-09-02 11:27 | Fluoroscopy Report ---
FL thoracic spine 2V CLINICAL HISTORY: T10-T11 DECOMPRESSION AND FUSION COMPARISON STUDY: Spine fluoroscopic images December 29, 2020. Lumbar spine CT December 25, 2020. FLUOROSCOPY TIME: 37 seconds. Ka, r: 15.02 mGy FLUOROSCOPIC IMAGES: 2 FINDINGS: Fluoroscopy was provided during interval T10-T11 discectomy, posterior decompression and pe dicle screw fusion. Hardware is intact. Previous lumbar spine fusion is partially imaged. IMPRESSION: Fluoroscopy provided during T10-T11 discectomy, posterior decompression and pedicle scre w fusion. ACT 112: Negative or not required by law. Electronically signed by: Ronald Pastrana M.D. 09/02/2022 11:26 AM
--- NOTE | 2022-09-02 12:05 | Anesthesiology Progress Note ---
Date of Service September 02, 2022 Anesthesia Post Procedure Vital Signs Vital Signs: Temp Pulse Resp BP BP Pulse Ox O2 Del Method 09/02/22 11:15 36.5 C 77 18 111/76 96 Room Air 09/02/22 10:45 36.4 C L 78 18 143/76 H 100 Nasal Cannula 09/02/22 10:25 36.5 C 65 16 125/78 100 Nasal Cannula 09/02/22 10:15 65 16 152/97 H 100 Nasal Cannula 09/02/22 10:05 70 18 127/80 100 Nasal Cannula 09/02/22 09:55 74 20 144/78 H 100 Nasal Cannula 09/02/22 09:46 36.5 C 88 20 150/85 H 100 Nasal Cannula 09/02/22 07:39 36.7 C 72 20 142/68 H 100 Room Air 09/02/22 07:21 36.8 C 84 18 134/82 94 Room Air 09/02/22 03:29 91 H 94/71 L 09/01/22 23:00 36.5 C 77 18 128/84 100 Room Air 09/01/22 19:30 Room Air 09/01/22 16:17 36.4 C L 85 20 137/73 97 Room Air 09/01/22 14:40 36.7 C 70 16 113/73 98 Room Air O2 Flow Rate 09/02/22 11:15 09/02/22 10:45 2 09/02/22 10:25 4 09/02/22 10:15 4 09/02/22 10:05 4 09/02/22 09:55 4 09/02/22 09:46 4 09/02/22 07:39 09/02/22 07:21 09/02/22 03:29 09/01/22 23:00 09/01/22 19:30 09/01/22 16:17 09/01/22 14:40 Pain Intensity Back: Pain Intensity: 8 Transfer of Care Handoff Completed per policy Notes Mental Status: alert / awake / arousable and participated in evaluation Patient Amnestic to Procedure: Yes Nausea / Vomiting: adequately controlled Pain: adequately controlled Airway Patency, RR, SpO2: stable & adequate BP & HR: stable & adequate Hydration State: stable & adequate Anesthetic Complications: no major complications apparent
[2022-09-02] MEDS: LACTATED RINGER'S 1,000 ML IV SCH ×2 (12:28→19:38)
[2022-09-02] MEDS: ceFAZolin 2000MG 2,000 MG/15 ML SYR IV SCH ×2 (14:55→22:55)
[2022-09-02] MEDS: PANTOprazole 40 MG TAB PO SCH (19:39)
[2022-09-02] MEDS: DOCUSATE SODIUM/SENNA 50/8.6MG TAB PO SCH (19:40)
[2022-09-02] MEDS: PRAMIPEXOLE DIHYDROCHLO 0.5 MG TAB PO SCH (19:41)
[2022-09-02] MEDS: LANTUS PER UNIT CHARGE SC SCH (20:48)
--- NOTE | 2022-09-02 21:05 | Hospitalist Progress Note ---
Date of Service September 02, 2022 Assessment & Plan (1) Thoracolumbar radiculopathy due to intervertebral disc disorder: (2) DM type 2 (diabetes mellitus, type 2): Plan This is a 46-year-old female who has a significant past medical history of T2DM, HTN, allergic rhinitis, GERD, chronic low back pain, chronic pain syndrome, RLS, history of migraine, Rheumatoid arthritis and tobacco abuse history who presents as direct admission and we have been requested to see as consult for preo perative management. Severe canal narrowing with mild cord edema 2/2 DDD Outpatient MRI: At T10-T11 there are ligamentum flavum calcifications and facet spurring, left greater than right which cause severe canal narrowing and severe left foraminal narrowing with possible minimal cord edema. These findings are also identified in the recent CT study of the body.Findings raise concern for laminectomy at T8-T9 level since the spinous process is missing. Correlate with prior history.Posterior fusion throughout the lumbar spine." Surgery today for --Decompression bilaterally facetectomies and foraminotomies T10-T11. #2 posterior spinal fusion T10-T11. #3 placed posterior instrumentation T10-T11. #4 interbody fusion at T10-T11. #5 placement of Spira 8 mm cage T10-T11. #6 placement of locally harvested morselized autograft and posterior gutters. #7 placement of I factor in the interbody space and infuse collagen sponge bone mass graft in the posterior lateral gutters. Further management per primary service T2DM hold metformin and ozempic diabetic diet, last a1c 5.09 May 2022 pt had a1c on > 24 Mar 2021 and has lost 80 lbs with diet and exercise and medications glycemic pharmacy on board Depression with anxiety on buspar and wellbutrin Patient very tearful and anxious yesterday, requested psychiatry evaluation. She was seen by psychiatry and felt her current medical issues contributing to her anxiety, recommend continue current regimen Hx of HTN off metoprolol in setting of weight loss HLD continue statin RLS continue pramipexole Tobacco abuse encourage cessation nicotine patch DVT ppx Per primary Admission and Anticipated Discharge Date Admission Date: August 31, 2022 Subjective Went to OR this morning Doing well postop Review of Systems Review of Systems: as above Physical Exam Physical Exam: Pleasant, comfortable, no acute distress Respiratory: breathing comfortably, no wheezing/rhonchi/rales Cardiovascular: regular rate and rhythm, no murmurs/rubs Gastrointestinal (Abdomen): soft, non tender Musculoskeletal: no edema Neurologic: awake, alert, spontaneously moving extremities Psychiatric: affect normal, much improved from yesterday Results & Data Results & Data Vital Signs (Past 12 Hours) Vital Signs Temp Pulse Resp BP BP Pulse Ox O2 Del Method 09/02/22 20:00 36.6 C 72 18 127/74 97 Room Air 09/02/22 16:05 36.5 C 69 16 122/78 96 Room Air 09/02/22 13:35 36.4 C L 63 16 119/77 98 Room Air 09/02/22 12:31 36.7 C 69 18 108/72 99 Room Air 09/02/22 11:15 36.5 C 77 18 111/76 96 Room Air 09/02/22 10:45 36.4 C L 78 18 143/76 H 100 Nasal Cannula 09/02/22 10:25 36.5 C 65 16 125/78 100 Nasal Cannula 09/02/22 10:15 65 16 152/97 H 100 Nasal Cannula 09/02/22 10:05 70 18 127/80 100 Nasal Cannula 09/02/22 09:55 74 20 144/78 H 100 Nasal Cannula 09/02/22 09:46 36.5 C 88 20 150/85 H 100 Nasal Cannula O2 Flow Rate 09/02/22 20:00 09/02/22 16:05 09/02/22 13:35 09/02/22 12:31 09/02/22 11:15 09/02/22 10:45 2 09/02/22 10:25 4 09/02/22 10:15 4 09/02/22 10:05 4 09/02/22 09:55 4 09/02/22 09:46 4
[2022-09-03] MEDS: oxyCODONE HCL IR 5 MG TAB (IMMEDIATE RELEASE) PO PRN ×4 (04:38→21:02)
[2022-09-03] MEDS: POLYETHYLENE (MIRALAX) 17 GM PACK PO SCH ×3 (05:01→18:18)
[2022-09-03 08:32] LABS: BUN Creatinine Ratio 9.1 (10-20); Calcium 9.2 mg/dl (8.6-10.3); Creatinine Clr Calc Pharmacy 85.5 ml/min; Est GFR (African American) 106.6 ml/min; Est GFR (Non-African American) 91.9 ml/min; Potassium 3.5 mmol/L (3.5-5.1)
[2022-09-03] MEDS: INSULIN ASPART PER UNIT CHARGE SC SCH ×4 (09:09→20:37)
[2022-09-03] MEDS: busPIRone 5 MG TAB PO SCH ×3 (09:10→19:54)
[2022-09-03] MEDS: ATORVASTATIN 10 MG TAB PO SCH (09:10)
[2022-09-03] MEDS: CETIRIZINE HCL 10 MG TABLET PO SCH (09:10)
[2022-09-03] MEDS: buPROPion XL 150 MG TABCR PO SCH (09:10)
[2022-09-03] MEDS: NICOTINE 21 MG/24 HR TDSY TD SCH (09:10)
[2022-09-03] MEDS: TOPIRAMATE 50 MG TAB PO SCH ×2 (09:10→19:55)
[2022-09-03] MEDS: MONTELUKAST SODIUM 10 MG TABLET PO SCH (09:10)
[2022-09-03] MEDS ORDERED: DEXTROSE 50% 50 ML SYRINGE IV PRN (09:30)
[2022-09-03] MEDS ORDERED: GLUCOSE 10 TAB/TUBE PO PRN (09:30)
[2022-09-03] MEDS ORDERED: GLUCAGON FOR INJ 1 MG VIAL IM PRN (09:30)
[2022-09-03] MEDS ORDERED: GLUCOSE 40% GEL 15 GM TUBE PO PRN (09:30)
[2022-09-03] MEDS ORDERED: CARBOHYDRATES FOR HYPOGLYCEMIA PO PRN (09:30)
--- NOTE | 2022-09-03 09:33 | Pharmacy Report ---
Pharmacy Glycemic Short Note 2 - Date of Service September 03, 2022 - Glycemic Short BSG Results (Last 24 hours): 09/02/22 09/02/22 09/02/22 09:49 11:20 17:08 Glucose POC Glucose 85 78 115 H 09/02/22 09/03/22 09/03/22 20:36 01:27 07:20 Glucose 97 POC Glucose 125 H 87 09/03/22 09/03/22 09/03/22 08:07 08:11 08:14 Glucose POC Glucose 46 L* 80 72 09/03/22 08:32 Glucose POC Glucose 76 OUTPATIENT ANTIDIABETIC REGIMEN: * Trulicity 0.75 mg per week on Wednesdays * Metformin 500 mg PO QAM HbA1c: 5.5% (09/01/22) ASSESSMENT: 09/03/22 * BSGs remain well-controlled with minimal insulin * Fasting BSG of 72 mg/dL this morning - will continue to hold basal * POD #1 s/p spinal decompression/fusion - received 4 mg IV dexamethasone in OR (no ongoing steroids) 09/01/22 * Patient with severe spinal stenosis and evidence of cord compression with myelomalacia T10-T11, seen by Dr Mc today, planning to do surgery as soon as possible. * Patient euglycemic, had only 4 units of NovoLog yesterday, had 3 doses of Dexamethasone 8mg IV over past 24 hours. * Continue insulin as ordered. 08/31/22 * 46 y/o F admitted for spinal surgery today. Patient has history of Type 2 diab etes managed at home on Trulicity SQ and oral Metformin. * Will hold outpatient antidiabetes while admitted and utilize basal and bolus insulins for glycemic control. * Currently no blood sugars obtained on this admission and no recent sugars [facility] in [facility]. * IV Dexamethasone 8mg q8 hrs x 3 doses ordered. Expect BSGs to trend up this evening and tomorrow due to steroid. * Basal Lantus ordered on a scale for HS today. * Novolog parameters ordered based on stress of 3. PLAN FOR INPATIENT GLYCEMIC CONTROL: * Hold outpatient oral diabetes medications * Basal insulin * hold * Bolus insulin * NovoLog per scale ACHS or Q6hrs while NPO * Goal Range: Low 110 mg/dL - High 140 mg/dL * Correction Factor: 45 mg/dL/unit * Nutritional / Prandial insulin per carb ratio of 1 unit per 15 grams CHO consumed
[2022-09-03 09:44] LABS: Basophils # (auto) 0.02 K/uL (0-0.2); Basophils % (auto) 0.2 %; Eosinophils # (auto) 0.03 K/uL (0-0.50); Eosinophils % (auto) 0.3 %; Hematocrit (blood only) 34.8 % (37.0-47.0); Immature Granulocytes # (auto) 0.02 K/uL (0.01-0.20); Immature Granulocytes % (auto) 0.2 %; Lymphocytes # (auto) 2.62 K/uL (1.2-3.4); Lymphocytes % (auto) 28.2 %; Mean Corpuscular Hemoglobin 32.5 pg (25.0-34.0); Mean Corpuscular Hgb Conc 34.5 g/dL (32.0-36.0); Mean Corpuscular Volume 94.3 fL (80.0-100.0); Mean Platelet Volume 13.8 fL (9.4-12.4); Monocytes # (auto) 0.85 K/uL (0.11-0.59); Monocytes % (auto) 9.2 %; Neutrophils # (auto) 5.74 K/uL (1.40-6.50); Neutrophils % (auto) 61.9 %; Platelet Count 127 K/uL (130-400); RDW Coefficient of Variation 12.8 % (11.5-14.5); RDW Standard Deviation 44.1 fL (36.4-46.3); Red Blood Count 3.69 M/uL (4.20-5.40); White Blood Count 9.28 K/ul (4.8-10.8)
--- NOTE | 2022-09-03 10:25 | Orthopedic Progress Note ---
Date of Service September 03, 2022 Assessment & Plan (1) Myelopathy concurrent with and due to spinal stenosis of thoracic region: Plan: This time continue physical therapy monitor FACUNDO output hopefully discharge home this weekend. Admission and Anticipated Discharge Date Admission Date: August 31, 2022 Subjective Back pain improved leg symptoms markedly improved. She has been up and ambulating. Physical Exam Physical Exam: On exam patient is constricted testing. Appears comfortable. Results & Data Vital Signs (Past 12 Hours) Vital Signs Temp Pulse Resp BP Pulse Ox O2 Del Method 09/03/22 07:40 36.7 C 78 15 121/78 98 Room Air 09/03/22 04:00 36.7 C 71 18 115/75 99 Room Air 09/03/22 00:00 36.6 C 65 18 119/75 97 Room Air
[2022-09-03] MEDS: HYDROmorphone INJ 1 MG/ML SYRINGE IV PRN (11:04)
--- NOTE | 2022-09-03 13:31 | Hospitalist Progress Note ---
Date of Service September 03, 2022 Assessment & Plan (1) Thoracolumbar radiculopathy due to intervertebral disc disorder: (2) DM type 2 (diabetes mellitus, type 2): Plan This is a 46-year-old female who has a significant past medical history of T2DM, HTN, allergic rhinitis, GERD, chronic low back pain, chronic pain syndrome, RLS, history of migraine, Rheumatoid arthritis and tobacco abuse history who presents as direct admission and we have been requested to see as consult for preo perative management. Severe canal narrowing with mild cord edema 2/2 DDD Outpatient MRI: At T10-T11 there are ligamentum flavum calcifications and facet spurring, left greater than right which cause severe canal narrowing and severe left foraminal narrowing with possible minimal cord edema. These findings are also identified in the recent CT study of the body.Findings raise concern for laminectomy at T8-T9 level since the spinous process is missing. Correlate with prior history.Posterior fusion throughout the lumbar spine." POD#1 s/p decompression bilaterally facetectomies and foraminotomies T10-T11 and posterior spinal fusion T10-T11, placed posterior instrumentation T10-T11 by Dr. Mc Per ortho for pain control, wound care, anticoagulation and activities Monitor H&H (hgb stable at 12 today, 50ml EBL) Continue incentive spirometry, PT/OT when appropriate T2DM Hold metformin and Ozempic diabetic diet, last a1c 5.09 May 2022 pt had a1c on > 24 Mar 2021 and has lost 80 lbs with diet and exercise and medications glycemic pharmacy on board Depression with anxiety On buspar and wellbutrin More tearful yesterday, requested psych consult Hx of HTN off metoprolol in setting of weight loss HLD continue statin RLS continue pramipexole Tobacco abuse encourage cessation nicotine patch DVT ppx TEDs/SCDs as per spine Ortho Patient seen in collaboration with Dr. Day. Thank you for this consultation. We will follow the patient with you during their hospital stay. You can reach a member of the [facility] Hospitalist Team 30/08 via hospitalist role on tiger text. I spent a total of 35 minutes coordinating, documenting, and providing care for this patient excluding time spent in the performance of separately billed services. Admission and Anticipated Discharge Date Admission Date: August 31, 2022 Supervising Physician Co-Signing Physician Notes I have seen and examined the patient and have discussed the case with the provider above. I agree with the assessment and plan as stated. DO Shay Subjective Seen and examined in [phone]. Resting comfortably with her sister at bedside. States that pain has controlled and has been ambulating without issue. No F/C, lightheadedness, CP, SOB, N/V, abd pain. No dysuria, urinating without issue post-operatively and had a small bowel movement this morning. Review of Systems Review of Systems: At least ten systems reviewed and negative except as noted in the HPI. Physical Exam Physical Exam: Gen: WD/WN, NAD, sitting upright in bed, A&Ox3 HEENT: Normocephalic, atraumatic, conjunctivae moist, sclerae anicteric, mucous membranes moist Lung: Clear to Auscultation bilaterally, no wheezes/rales/rhonchi Heart: Regular rate, regular rhythm, no murmurs, rubs, or gallops Abdomen: Soft, NT, ND +BS x 4 Extremities:+ Spinal dressing c/d/i, FACUNDO drain with serosanguineous output. No edema Skin: Warm, no rash Results & Data Results & Data Vital Signs (Past 12 Hours) Vital Signs Temp Pulse Resp BP Pulse Ox O2 Del Method 09/03/22 12:02 37.0 C 100 H 14 118/73 96 Room Air 09/03/22 07:40 36.7 C 78 15 121/78 98 Room Air 09/03/22 04:00 36.7 C 71 18 115/75 99 Room Air Laboratory Results Short CBC 09/03/22 Range/Units 07:20 WBC 9.28 (4.8-10.8) K/ul Hgb 12.0 (12.0-16.0) g/dl Hct 34.8 L (37.0-47.0) % Plt Count 127 L (130-400) K/uL BMP 09/03/22 07:20 Sodium 139 Potassium 3.5 Chloride 108 H Carbon Dioxide 28 BUN 7 Creatinine 0.77 Glucose 97 Calcium 9.2 Diagnostic Findings Chest X-Ray 09/01/22 07:12 XR chest 1V portable HISTORY: 46 years-old Female pre op preoperative exam COMPARISON: 10/12/2013 TECHNIQUE: AP view of the chest FINDINGS: Cardiomediastinal and hilar silhouettes are within normal limits. No pneumothorax, pleural effusion, airspace consolidation or pulmonary edema. Bones appear grossly intact. Findings suggestive of prior resection of the distal left clavicle. Partially imaged lumbar spinal fusion hardware. IMPRESSION: No acute process. ACT 112: Negative or not required by law. The above report was generated using voice recognition software. It may contain grammatical, syntax or spelling errors. Electronically signed by: Edil Whatley M.D. 09/01/2022 8:17 AM Thoracic Spine X-Ray 09/02/22 07:45 FL thoracic spine 2V CLINICAL HISTORY: T10-T11 DECOMPRESSION AND FUSION COMPARISON STUDY: Spine fluoroscopic images December 29, 2020. Lumbar spine CT December 25, 2020. FLUOROSCOPY TIME: 37 seconds. Ka, r: 15.02 mGy FLUOROSCOPIC IMAGES: 2 FINDINGS: Fluoroscopy was provided during interval T10-T11 discectomy, posterior decompression and pedicle screw fusion. Hardware is intact. Previous lumbar spine fusion is partially imaged. IMPRESSION: Fluoroscopy provided during T10-T11 discectomy, posterior decompression and pedicle screw fusion. ACT 112: Negative or not required by law. Electronically signed by: Ronald Pastrana M.D. 09/02/2022 11:26 AM
[2022-09-03] MEDS: PANTOprazole 40 MG TAB PO SCH (19:53)
[2022-09-03] MEDS: PRAMIPEXOLE DIHYDROCHLO 0.5 MG TAB PO SCH (19:53)
[2022-09-03] MEDS: DOCUSATE SODIUM/SENNA 50/8.6MG TAB PO SCH (19:54)
[2022-09-04] MEDS: POLYETHYLENE (MIRALAX) 17 GM PACK PO SCH ×2 (00:05→05:05)
[2022-09-04] MEDS: oxyCODONE HCL IR 5 MG TAB (IMMEDIATE RELEASE) PO PRN ×2 (01:38→08:07)
[2022-09-04 06:20] LABS: Hematocrit (blood only) 37.2 % (37.0-47.0); Hemoglobin 12.5 g/dl (12.0-16.0); Mean Corpuscular Hemoglobin 32.5 pg (25.0-34.0); Mean Corpuscular Hgb Conc 33.6 g/dL (32.0-36.0); Mean Corpuscular Volume 96.6 fL (80.0-100.0); Mean Platelet Volume 13.5 fL (9.4-12.4); Platelet Count 122 K/uL (130-400); RDW Standard Deviation 46.1 fL (36.4-46.3); Red Blood Count 3.85 M/uL (4.20-5.40); White Blood Count 8.97 K/ul (4.8-10.8)
[2022-09-04 06:27] LABS: BUN Creatinine Ratio 7.1 (10-20); Calcium 9.5 mg/dl (8.6-10.3); Creatinine Clr Calc Pharmacy 78.3 ml/min; Est GFR (African American) 95.9 ml/min; Est GFR (Non-African American) 82.8 ml/min; Potassium 3.9 mmol/L (3.5-5.1)
[2022-09-04] MEDS: buPROPion XL 150 MG TABCR PO SCH (08:10)
[2022-09-04] MEDS: TOPIRAMATE 50 MG TAB PO SCH (08:11)
[2022-09-04] MEDS: ATORVASTATIN 10 MG TAB PO SCH (08:11)
[2022-09-04] MEDS: MONTELUKAST SODIUM 10 MG TABLET PO SCH (08:11)
[2022-09-04] MEDS: CETIRIZINE HCL 10 MG TABLET PO SCH (08:11)
[2022-09-04] MEDS: busPIRone 5 MG TAB PO SCH (08:11)
[2022-09-04] MEDS: NICOTINE 21 MG/24 HR TDSY TD SCH (08:12)
[2022-09-04] MEDS: INSULIN ASPART PER UNIT CHARGE SC SCH (08:19)
--- NOTE | 2022-09-04 08:51 | Discharge Summary ---
Date of Service September 04, 2022 Admission HPI Per Admitting Provider This is a 46-year-old female well-known to me for this and marked decline in status over the past 4 weeks. She has had severe thoracolumbar back pain with radiation around her rib cage and progressive leg weakness described as heaviness and inability to stand and ambulate any distance. She denies any precipitating trauma fall or event. She had obtained an MRI urgently on the order of her primary care physician and see me the next day. She is having difficulty with urination but denies loss of bowel control at this time. Admission Exam (Per Admitting) Constitutional WD/WN, vitals as above well developed Eyes normal visual cm by confrontation ENMT external ear and nose normal, oropharynx normal Neck normal visual inspection Respiratory normal respiratory effort Cardiovascular Extremities: normal capillary refill Gastrointestinal (Abdomen) Inspection/Auscultation: abdomen normal to inspection Musculoskeletal no cyanosis or clubbing, extremities motor strength 5/5 Spine: + limited thoraco-lumbar ROM Skin no rashes, warm and dry Neurologic normal touch/pain/proprioception and moves all extremities Psychiatric A+Ox3, euthymic affect Eye Contact: good eye contact Discharge Data Consultations 08/31/22 14:11 Consult Internal Medicine Routine 09/01/22 17:19 Consult Behavioral Health Liaison Routine Procedures Performed Operation Date: 09/02/22 07:45 Actual Procedures p T10-T11 Decompression Fusion and Instrumentation, Spinal Cord Monitoring(Not Applicable) - Luke Mc DO Hospital Course (1) Myelopathy concurrent with and due to spinal stenosis of thoracic region: Caren is being discharged home on postoperative day 4 status post T10-T11 decompression and instrumented fusion secondary to myelopathy. She had a bowel movement. Leg symptoms including heaviness and weakness are greatly improved. She is ambulating several 100 feet in physical therapy plus the hallways. FACUNDO drain output last shift was 40 cc. Discharge Instructions ACTIVITY RECOMMENDATIONS: SELF CARE INSTRUCTIONS AFTER THORACIC/LUMBAR FUSIONS 1. You may walk to your tolerance. It is good exercise for your legs and back. Expect some back and intermittent leg aches and pains. 2. You may perform "counter-top" level activities (make a sandwich, philip with a project, etc.). 3. No bending or lifting of more than 10 pounds or back twisting of any nature (roll like a log when turning in bed). 4. You may ride in a car for 20-30 minutes at a time. No driving until after your first visit with your doctor. 5. Frequent changes of position and restricting sitting to 30 minutes at a time will help limit the amount of back spasms and stiffness you may experience. 6. You may discontinue the use of ambulatory aids (cane, crutches, etc.) once your strength and confidence allow. 7. You may business relations manager the shower and let water strike your incision when you arrive home at least once daily. Do not take a tub bath, sit in a hot tub or go into a swimming pool until after your first recheck in the office. SPECIAL CARE INSTRUCTIONS: VERY IMPORTANT TO READ AND REVIEW A. Your surgical incision has been closed with a cosmetic suture under the skin that will dissolve in about 6 weeks. In 14 days, you can use a pair of clean scissors and cut the suture that is left outside of the skin at the ends of your incision. 1. The small skin tapes can be removed 7 days after surgery if they have not fallen off by that point. 2. You may keep the wound open to air as much as possible to promote healing after post-op day number 5 unless told otherwise by your doctor. 3. If you think the wound looks like it is becoming infected (redness or worsening drainage) and/or you are experiencing fever, chill or worsening back pain and muscle spasms, contact the office so that we may evaluate you as soon as possible. B. Complications are uncommon, but please contact us if you have any signs or symptoms of: 1. wound infection (fever higher than 102.5 degrees F, redness, separation of wound, drainage, or increasing pain from the incision) 2. blood clots in legs (pain, swelling, redness and warmth in legs) 3. urinary tract infection (fever higher than 102.5 degrees F, burning upon urination or increased frequency of urination) 4. nerve problems (inability to walk on your toes or heels, numbness, loss of bowel or bladder control) 5. any other symptoms that concern you C. Please call the office at if you have any concerns or questions about your operation or recovery. D. No smoking! Smoking drastically decreases the chance of a solid fusion. E. Do not take any anti-inflammatory medications (Indocin, Advil, Motrin, Aspirin, Naprosyn, etc.) as these may inhibit the chance of a solid fusion. Tylenol is okay to take for pain. MANAGING PAIN AFTER SPINAL SURGERY 1. Narcotic medication is intended for short-term use and will be provided for surgical pain. Surgical pain usually lasts for a period of 4-6 weeks. Narcotic medication includes Percocet, Vicodin, Darvocet, Tylenol #3 or Lortab. 2. Longer-term pain is more appropriately treated with non-narcotic medication such as Tylenol ES. 3. Muscle spasm is not appropriately treated with narcotics. Muscle relaxers such as Soma, Flexeril or Skelaxin can be used along with Tylenol ES. 4. Remember that we all live with some "aches and pains". This is not unusual or uncommon after an injury or as we get older. a. Back pain is expected and may include muscle spasms for 4 to 6 weeks after surgery. The pain should gradually improve. If the pain worsens for no apparent reason, please contact the office. b. Intermittent leg pain may also be experienced and should not be concerned about unless it worsens for no apparent reason. If so, please contact the office. 5. We will provide appropriate medication within the normal guidelines of their prescribed use. We will also be very cautious and aware of potential abuse and extended duration of patients' medication needs. a. Pain medications are for your comfort and to assist with sleep and rest so that the tissue can heal. They are not provided in order to return to normal activity and should not be used through the day. To do so or worsening pain at night can result from ongoing tissue damage and development of tolerance to the prescribed medicine. 6. Please allow 2-3 days to process refills. Prescriptions will not be mailed but must be picked up at the office. FOLLOW UP VISIT: Keep your scheduled follow-up appointment. Any questions, please call the office at .
--- NOTE | 2022-09-10 11:57 | Coding Query ---
CODING QUERY To promote full compliance with coding requirements relating to patient care, provider participation is requested in all cases of eeg technologist uncertainty. Please assist us with the question(s) below: Coding Question(s): The 08/31 Consultation (Internal Medicine) and Hospitalist's Progress Notes document, "Severe canal narrowing with mild cord edema 2/2 DDD", and, "MRI L spine from yesterday shows At T10-T11 there are ligamentum flavum calcifications and facet spurring, left greater than right which cause severe canal narrowing and severe left foraminal narrowing with possible minimal cord edema", and the H&P documents, "Myelopathy concurrent with and due to spinal stenosis of thoracic region:", and, "MRI of the thoracic spine available for review does demonstrate severe spinal stenosis and evidence of cord compression with myelomalacia T10-T11". Please specify below, in your clinical opinion: (x ) Myelopathy concurrent with and due to spinal stenosis of thoracic region, and, in addition, there is mild spinal cord edema ( ) Myelopathy concurrent with and due to spinal stenosis of thoracic region, and No additional spinal cord edema diagnosed ( ) Other: Please Specify Physician's Response(s): Thank you Louise Jorgensen Principal Diagnosis: "that condition established after study, to be chiefly responsible for occasioning the admission of the patient to the hospital for care." Co-Existing Principal Diagnosis: "when two or more diagnoses equally meet the criteria for principal diagnosis as determined by the circumstances of admission, diagnostic work up, and/or therapy provided, and the Alphabetic Index, Tabular List, or another coding guideline does not provide sequencing direction, any one of the diagnoses may be sequenced first." "When the physician has documented what appears to be a current diagnosis in the body of the record, but has not included the diagnosis in the final diagnostic statement, the physician should be asked whether the diagnosis should be added." (Source Coding [facility] 2 QTR90. p3-4) DAVONTE
== END 2022-09-04 10:08 | disposition home or self-care (01) | DRG 453 ==
LOC: 3N 13:25

== ENCOUNTER 2023-04-16 08:35 | Inpatient (IN) ==
--- NOTE | 2023-04-16 09:10 | Emergency Department Note ---
History of Present Illness General Chief complaint: Back Injury/Pain Stated complaint: BACK PAIN Time Seen by Provider: 04/16/23 08:54 History of Present Illness Maximum Pain Intensity: 10 This is a 47-year-old female with a history of spine surgery x 5 that presents to the emergency department via private vehicle with complaints of "back pain". The patient notes over the past 4 days she has been experiencing mid to low back pain that radiates down the bilateral legs to the feet. She notes leg weakness associated with the pain. She also notes numbness/tingling in both legs. She denies any recent falls or trauma. No infectious symptoms. No fevers or chills. No urinary symptoms. No chest pain or shortness of breath. Patient is her last spine surgery was this past year. Patient states that her pain today feels identical to what led to her having her last spine surgery. Per review of the EMR patient's most recent spine surgery was on 08/29/[address] Mc. Operative report at that time revealed a postop diagnosis of thoracic myelopathy, spinal stenosis. She underwent decompression bilateral fasciotomies and foraminotomies T10-T11. She also underwent posterior spinal fusion at T10-T11. Interbody fusion at T10-T11. She also has a spire a millimeter cage at T10-T11. Prior to this procedure, on 12/29/2020 the patient underwent surgery for neurogenic claudication due to lumbar spinal stenosis. Previous to the above, on she also underwent L-spine surgery secondary to lumbar spinal stenosis at that time without neurogenic claudication. Home Medications Medication Instructions Recorded Confirmed Type atorvastatin 10 mg tablet 10 mg PO QAM 12/25/20 04/16/23 History cetirizine 10 mg tablet (Zyrtec) 10 mg PO QAM 12/25/20 04/16/23 History pramipexole 0.5 mg tablet 0.5 mg PO HS 12/25/20 04/16/23 History cholecalciferol (vitamin D3) 50 50 mcg PO QPM 05/07/22 04/16/23 History mcg (2,000 unit) capsule (Vitamin D3) metformin 500 mg tablet 500 mg PO QAM 05/07/22 04/16/23 History topiramate 50 mg tablet 50 mg PO BID 05/07/22 04/16/23 History bupropion HCl 150 mg 24 hr tablet, 150 mg PO QAM 08/31/22 04/16/23 History extended release esomeprazole magnesium 40 mg 40 mg PO DAILY 08/31/22 04/16/23 History capsule,delayed release montelukast 10 mg tablet 10 mg PO DAILY 08/31/22 04/16/23 History oxycodone 5 mg tablet 5 mg PO Q6H PRN pain #30 tabs 09/03/22 04/16/23 Rx tramadol 50 mg tablet 50 mg PO Q6H PRN pain, moderate 09/03/22 04/16/23 Rx #30 tabs acetaminophen 500 mg tablet 1,000 mg PO Q6H 04/16/23 04/16/23 History albuterol sulfate 90 mcg/actuation 2 puff inhalation Q4H PRN 04/16/23 04/16/23 History aerosol inhaler SOB/Wheezing buspirone 10 mg tablet 10 mg PO TID 04/16/23 04/16/23 History cyclobenzaprine 10 mg tablet 10 mg PO TID 04/16/23 04/16/23 History dulaglutide 1.5 mg/0.5 mL 1.5 mg subcut WK 04/16/23 04/16/23 History subcutaneous pen injector (Trulicity) hydroxyzine HCl 25 mg tablet 25 mg PO Q6H PRN Anxiety 04/16/23 04/16/23 History ondansetron 4 mg disintegrating 4 mg PO Q8H PRN Nausea And Vomiting 04/16/23 04/16/23 History tablet polyethylene glycol 3350 17 17 g PO DAILY PRN Constipation 04/16/23 04/16/23 History gram/dose oral powder pregabalin 150 mg capsule 150 mg PO TID 04/16/23 04/16/23 History trazodone 50 mg tablet 100 mg PO HS 04/16/23 04/16/23 History Allergies Allergy/AdvReac Type Severity Reaction Status Date / Time No Known Drug Allergies Allergy Unknown NONE Verified 04/16/23 11:10 Past Med/Surg History Medical History History of TIA (transient ischemic attack) 03/20/22 -- initially thought to be a TIA, later determined to be complex migraine. No residual deficits DM type 2 (diabetes mellitus, type 2) Recently dx'ed (02/2022) Migraine Restless leg syndrome Dyslipidemia Allergic asthma H/O difficult intubation 11/05/13 - Glidescope #4, ETT #7.0, Atraumatic, GS x 1 without difficulty. Fibromyalgia Degenerative disc disease Chronic back pain Hiatal hernia GERD (gastroesophageal reflux disease) Surgical History History of arthroscopy of left shoulder Left Shoulder Arthroscopic Subacromial Decompression, Distal Clavicle Excision, Rotator Cuff Repair with [employer] History of spinal fusion 2020 [facility] Dr. Mc History of right knee joint replacement History of left knee replacement History of carpal tunnel release RIGHT - REMOVED CYST FROM RIGHT HAND AT SAME TIME History of section History of hysterectomy VALENCIA WITH RSO History of dilatation and curettage History of bilateral tubal ligation Spinal cord stimulator status PLACED 2016, REMOVED 2017 Fusion of spine L4-L5, L5-S1. 11/05/13: Glidescope #4, ETT #7.0, Atraumatic, GS x 1 without difficulty. History of colonoscopy History of esophagogastroduodenoscopy (EGD) History of tooth extraction History of tonsillectomy Family History Father Family history of diabetes mellitus Grandfather (Paternal) Family history of diabetes mellitus Grandmother (Paternal) Family history of diabetes mellitus Social History Smoking Status: Current every day smoker Tobacco Type: Cigarettes Cigarettes Per Day: 10; Second Hand Exposure: No; Do You Dip or Chew Tobacco: No; Tobacco Cessation Education Requested by Patient: No Hx Alcohol Use: Yes Alcohol type: wine Hx Substance Use: No Preferred Language: Mauritanian Communication Ability: Effective Financial Recruiter Required: No Beliefs That Will Affect Care: None marital status: Current Living Situation: Spouse Other Information That Helps Us Care for You: No Feels Safe at Home: Yes Safety Concerns: Feels Safe At This Time Assistive Devices: Denture - Upper, Denture - Lower, Glasses and Walker Review of Systems A total of 10 systems reviewed and were otherwise negative Physical Exam Vital Signs Vital Signs - 24 hr 04/16/23 08:45 04/16/23 09:12 04/16/23 10:00 Temperature 36.3 C L Temperature Source Temporal Artery Scan Pulse Rate 81 74 Pulse Rate [Right Finger] 80 Pulse Rhythm Regular Pulse Rhythm [Right Finger] Regular Pulse Strength [Right Finger] Normal Respiratory Rate 16 22 20 Respiratory Effort / Characteristics Non-Labored Non-Labored Spontaneous Respiratory Depth Normal Normal Respiratory Pattern Regular Blood Pressure 138/97 Blood Pressure [Left Arm] 142/98 H Blood Pressure Mean 110 Blood Pressure Mean [Left Arm] 112 Blood Pressure Position [Left Arm] Sitting Pulse Oximetry 94 97 97 Oxygen Delivery Method Room Air Room Air Room Air Sepsis Recent Fever Within 48 Hours No Sepsis New/Unexplained Change in Mental Status No Sepsis Action Taken by Nursing No Action Required VITAL SIGNS - Vital signs and nursing notes were reviewed. Stable and afebrile. GENERAL -47-year-old female appearing her stated age who is in no acute distress but appears to be in pain, and is sitting in examination bed in a reclined approximately 70 degree position. Communicates well with provider and answers questions appropriately. SKIN - Without rashes. No meningeal or petechial rash. Vertical incisions overlying the spine are well-healed without sign of dehiscence or infection. No surrounding erythema or fluctuance. No crepitus. HEAD - NC/AT. EYES - PERRL with EOMI bilaterally. Sclera anicteric. NECK - Neck with FROM. Supple to palpation.No nuchal rigidity. LUNGS - Chest wall symmetric without accessory muscle use, intercostals retractions, or central cyanosis. Normal vesicular breath sounds CTA B/L. No wheezes, rales, or rhonchi appreciated. CARDIAC - RRR with S1/S2. No murmur, rubs, or gallops appreciated. ABDOMEN - Abdominal contour normal without pulsations or visible masses. BS normoactive all four quadrants. No tenderness, palpable masses, hepatosplenomegaly, or ascites noted. EXTREMITIES - No clubbing or peripheral cyanosis. Patient not able to actively flex at the hip and lift the legs from the bed against resistance secondary to pain in the L-spine region. She is able to plantarflex the bilateral feet. Upper extremities within normal limits. Assessment of patellar reflexes limited secondary to pain at the present time. MUSCULOSKELETALthere is tenderness overlying the inferior T and L-spine region. NEUROLOGIC - Cranial nerves grossly intact. PSYCH - A&O, and cooperates fully with examiner. Pt is very pleasant and interacts well with examiner. Course Administered Medications Buspirone HCl (Buspirone 5 Mg Tab) 5 mg PO TID [facility] Stop: 05/16/23 13:59 Last Admin: 04/16/23 13:43 Dose: 5 mg Documented By: CEF Hydromorphone HCl (Hydromorphone Inj 1 Mg/Ml Syringe) 1 mg IV Q3H PRN PRN Reason: severe pain (scale 7-10) Stop: 04/30/23 13:10 Last Admin: 04/16/23 13:52 Dose: 1 mg Documented By: CEF Sodium Chloride (Nss) 1,000 mls @ 75 mls/hr IV .[id number] [facility] Stop: 05/16/23 13:10 Last Admin: 04/16/23 13:50 Dose: 75 mls/hr Documented By: CEF Discontinued Medications Hydromorphone HCl (Hydromorphone Inj 0.5 Mg/0.5 Ml Syr) 0.5 mg IV NOW STA Stop: 04/16/23 09:13 Last Admin: 04/16/23 09:25 Dose: 0.5 mg Documented By: VALORIE Hydromorphone HCl (Hydromorphone Inj 0.5 Mg/0.5 Ml Syr) 0.5 mg IV NOW STA Stop: 04/16/23 10:15 Last Admin: 04/16/23 10:54 Dose: 0.5 mg Documented By: VALORIE Lorazepam (Lorazepam 1 Mg/1 Ml Syr Ed Inj Use) 0.5 mg IV ONE STA Stop: 04/16/23 11:20 Last Admin: 04/16/23 11:29 Dose: 0.5 mg Documented By: VALORIE Ondansetron HCl (Ondansetron Inj 2 Mg/Ml 2 Ml Vial) 4 mg IV NOW STA Stop: 04/16/23 09:11 Last Admin: 04/16/23 09:25 Dose: 4 mg Documented By: VALORIE Medical Decision Making Laboratory Data 04/16/23 09:41 04/16/23 09:41 Lab Results 04/16/23 Range/Units 09:41 WBC 5.55 (4.8-10.8) K/ul RBC 4.18 L (4.20-5.40) M/uL Hgb 13.0 (12.0-16.0) g/dl Hct 40.0 (37.0-47.0) % MCV 95.7 (80.0-100.0) fL MCH 31.1 (25.0-34.0) pg MCHC 32.5 (32.0-36.0) g/dL RDW Std Deviation 47.8 H (36.4-46.3) fL RDW Coeff of Kaia 13.4 (11.5-14.5) % Plt Count 154 (130-400) K/uL MPV 11.6 (9.4-12.4) fL Immature Gran % (Auto) 0.2 % Neut % (Auto) 43.6 % Lymph % (Auto) 41.8 % [place] % (Auto) 8.5 % Eos % (Auto) 5.0 % Baso % (Auto) 0.9 % Neut # (Auto) 2.42 (1.40-6.50) K/uL Lymph # (Auto) 2.32 (1.20-3.40) K/uL [place] # (Auto) 0.47 (0.11-0.59) K/uL Eos # (Auto) 0.28 (0.00-0.50) K/uL Baso # (Auto) 0.05 (0.00-0.20) K/uL Immature Gran # (Auto) 0.01 (0.01-0.20) K/uL Sodium 137 (136-145) mmol/L Potassium 3.8 (3.5-5.1) mmol/L Chloride 106 (98-107) mmol/L Carbon Dioxide 27 (21-32) mmol/L Anion Gap 4 (3-11) BUN 16 (6-23) mg/dl Creatinine 0.90 (0.6-1.2) mg/dl Est Cr Clr Drug Dosing 75.2 ml/min Est GFR ( Amer) 87.6 ml/min Est GFR (Non-Af Amer) 75.6 ml/min BUN/Creatinine Ratio 17.8 (10-20) Glucose 93 (70-99(Fasting)) mg/dl Calcium 9.2 (8.6-10.3) mg/dl Total Bilirubin 0.3 (0.2-1.0) mg/dl AST 89 H (13-39) U/L ALT 293 H (7-52) U/L Alkaline Phosphatase 268 H (34-104) U/L Total Protein 6.2 (6.0-8.3) gm/dl Albumin 4.1 (3.4-5.0) gm/dl Globulin 2.1 L (2.5-4.0) gm/dl Albumin/Globulin Ratio 2.0 (0.9-2) Imaging Data Radiologist's Impression: Lumbar Spine X-Ray 04/16/23 09:10 XR lumbar spine min 4V routine CLINICAL HISTORY: Back pain, hx surgery TECHNIQUE: 5 views of the lumbar spine were obtained. Comparison: Comparison is made to lumbar spine radiographs 12/25/2020 FINDINGS: Posterior fixation hardware is seen. Vertebral body heights and disc spaces are well maintained. The alignment is normal. No soft tissue abnormality is seen. IMPRESSION: No acute fracture or subluxation. ACT 112: Negative or not required by law. Electronically signed by: Paul Botello M.D. 04/16/2023 10:13 AM Thoracic Spine X-Ray 04/16/23 09:10 XR thoracic spine 3V routine CLINICAL HISTORY: Back pain, hx surgery TECHNIQUE: 3 views of the thoracic spine were obtained. Comparison: None available at the time of this dictation. FINDINGS: Posterior fixation hardware is seen in the lower thoracic spine. Degenerative changes are seen in the thoracic spine. Alignment appears unremarkable. Prevertebral soft tissues are within normal limits. IMPRESSION: Degenerative changes as above without acute fracture or subluxation. ACT 112: Negative or not required by law. Electronically signed by: Paul Botello M.D. 04/16/2023 10:19 AM Lumbar Spine MRI 04/16/23 10:02 MR lumbar spine wo con CLINICAL HISTORY: Low back pain, Leg weakness, numbness TECHNIQUE: Multiplanar sequences through the lumbar spine were obtained, without intravenous contrast. Comparison: Comparison is made to lumbar spine radiographs 04/27/2023 FINDINGS: Posterior fixation hardware is again seen in the lower thoracic and lumbar spine. T12-L1: There is minimal narrowing of the spinal canal due to facet arthropathy. L1-L2: No significant abnormality. L2-L3: No significant abnormality. L3-L4: No significant abnormality. L4-L5: No significant abnormality. L5-S1: No significant abnormality. The spinal ligaments are intact, without evidence of disruption or abnormal signal intensity. The spinal cord is normal in signal intensity and there is no evidence of cord contusion. There is no evidence of an extradural, intradural, extramedullary or intramedullary lesion. Soft tissue edema is seen about the posterior lumbar region which may represent edema and muscular atrophy. IMPRESSION: No significant canal or neuroforaminal stenosis. Edema of the paraspinal musculature in the lower lumbar region which may represent muscular atrophy. ACT 112: Negative or not required by law. Electronically signed by: Paul Botello M.D. 04/16/2023 1:11 PM Thoracic Spine MRI 04/16/23 10:02 MR thoracic spine wo con CLINICAL HISTORY: Low back pain, Leg weakness, numbness TECHNIQUE: Multiplanar sequences through the thoracic spine were obtained, without intravenous contrast. Comparison: None available at the time of this dictation. FINDINGS: Posterior fixation hardware is seen extending from T10 to T11 and L1-L5. Disks are normal in height and signal. The spinal canal and neural foramina are patent. The spinal ligaments are intact, without evidence of disruption or abnormal signal intensity. The spinal cord is normal in signal intensity and there is no evidence of cord contusion. There is no evidence of an extradural, intradural, extramedullary or intramedullary lesion. Visualized soft tissues are normal. IMPRESSION: No evidence of cord compression, significant neuroforaminal narrowing or ligamentous injury. ACT 112: Negative or not required by law. Electronically signed by: Paul Botello M.D. 04/16/2023 1:00 PM MDM Narrative Patient was seen and evaluated as above in room B11. Review was performed of triage nursing notes and vital signs. After obtaining a thorough history and physical examination the above work up was performed. Patient presents to us today for evaluation of back pain. Patient appears to be in pain. She is tearful on assessment. She has minimal movement of the left and right lower extremity secondary to pain in her low back. Pain radiates down the legs with associated numbness and tingling. She has a history of spine surgery x 5 performed here at this facility by Dr. Mc. No infectious symptoms. Patient notes that pain has been present over the past 4 days and feels identical to what prompted last surgery. She has an appointment for 04/19/2023 but notes she "cannot make it" to that appointment secondary to the severity of her pain today. No incontinence of bowel/bladder. No numbness or tingling in the genital region. Options of care were discussed with the patient. IV access was established. Labs were drawn. She was medicated with IV Dilaudid for pain, IV Zofran for nausea. X-ray of the T and L-spine were obtained. 10:00 AM: I spoke with Dr. Mc, the patient's established spine surgeon. Recommendation is MRI of the T-spine and L-spine as well as proceed with admission at this time. He will admit the patient to his service with medical consult. Please refer to further documentation regarding her stay. Patient amenable to this plan. Patient notes she is claustrophobic and does require medication to help relax her in the MRI machine. As she has already received IV analgesics here, will be cautious with proceeding with small dose of IV Ativan. We will carefully watch the patient's pulse ox in the MRI scanner. No issues noted. GCS: 15 In the evaluation and treatment of this patient the following differential diagnosis entertained: Fracture, dislocation, subluxation, cauda equina syndrome, AAA, diverticulitis, appendicitis, torsion, osteomyelitis, piriformis syndrome, strain, sprain, among others. Impression & Plan Lumbar radiculopathy Discharge Plan Visit Data Chief Complaint: Back Injury/Pain Stated Complaint: BACK PAIN ED Provider: Jethro Mcdonough ED Midlevel Provider: Pierre Hunt Discharge Problem: Lumbar radiculopathy Patient Disposition: Admitted As Inpatient Condition: Good Discharge Instructions Interventions: ED Discharge Assessment Last Done: 04/16/23 12:58
--- NOTE | 2023-04-16 09:11 | Emergency Department Note ---
ED Visit Note I was consulted by the Advanced Practice Provider Pierre Hunt PA-C. I personally made/approved the management plan and take responsibility for the patient management. I performed a substantive portion of the visit. This includes the aspects of: -History -[facility] Patient presents due to concern for back pain known history of back surgeries and does follow with Dr. Mc. The patient has had worsening pain. Patient does have follow-up on April 18. Patient was discussed with Dr. Mc and the patient did have MRIs completed and the patient was subsequently admitted to the medicine service .
[2023-04-16] MEDS: ONDANSETRON INJ 2 MG/ML 2 ML VIAL IV STA (09:25)
[2023-04-16] MEDS: HYDROmorphone INJ 0.5 MG/0.5 ML SYR IV STA ×2 (09:25→10:54)
[2023-04-16 10:08] LABS: Basophils # (auto) 0.05 K/uL (0.00-0.20); Basophils % (auto) 0.9 %; Eosinophils # (auto) 0.28 K/uL (0.00-0.50); Immature Granulocytes # (auto) 0.01 K/uL (0.01-0.20); Immature Granulocytes % (auto) 0.2 %; Lymphocytes # (auto) 2.32 K/uL (1.20-3.40); Lymphocytes % (auto) 41.8 %; Mean Corpuscular Hemoglobin 31.1 pg (25.0-34.0); Mean Corpuscular Hgb Conc 32.5 g/dL (32.0-36.0); Mean Corpuscular Volume 95.7 fL (80.0-100.0); Mean Platelet Volume 11.6 fL (9.4-12.4); Monocytes # (auto) 0.47 K/uL (0.11-0.59); Monocytes % (auto) 8.5 %; Neutrophils # (auto) 2.42 K/uL (1.40-6.50); Neutrophils % (auto) 43.6 %; Platelet Count 154 K/uL (130-400); RDW Coefficient of Variation 13.4 % (11.5-14.5); RDW Standard Deviation 47.8 fL (36.4-46.3); Red Blood Count 4.18 M/uL (4.20-5.40); White Blood Count 5.55 K/ul (4.8-10.8)
[2023-04-16 10:15] LABS: Albumin Level 4.1 gm/dl (3.4-5.0); BUN Creatinine Ratio 17.8 (10-20); Bilirubin,Total 0.3 mg/dl (0.2-1.0); Calcium 9.2 mg/dl (8.6-10.3); Creatinine Clr Calc Pharmacy 75.2 ml/min; Est GFR (African American) 87.6 ml/min; Est GFR (Non-African American) 75.6 ml/min; Globulin 2.1 gm/dl (2.5-4.0); Potassium 3.8 mmol/L (3.5-5.1); Total Protein 6.2 gm/dl (6.0-8.3)
--- NOTE | 2023-04-16 10:15 | XRay Report ---
XR lumbar spine min 4V routine CLINICAL HISTORY: Back pain, hx surgery TECHNIQUE: 5 views of the lumbar spine were obtained. Comparison: Comparison is made to lumbar spine radiographs 12/25/2020 FINDINGS: Posterior fixation hardware is seen. Vertebral body heights and disc spaces are well maintained. The alignment is normal. No soft tissue abnormality is seen. IMPRESSION: No acute fracture or subluxation. ACT 112: Negative or not required by law. Electronically signed by: Paul Botello M.D. 04/16/2023 10:13 AM
--- NOTE | 2023-04-16 10:21 | XRay Report ---
XR thoracic spine 3V routine CLINICAL HISTORY: Back pain, hx surgery TECHNIQUE: 3 views of the thoracic spine were obtained. Comparison: None available at the time of this dictation. FINDINGS: Posterior fixation hardware is seen in the lower thoracic spine. Degenerative changes are seen in the thoracic spine. Alignment appears unremarkable. Prevertebral soft tissues are within normal limits. IMPRESSION: Degenerative changes as above without acute fracture or subluxation. ACT 112: Negative or not required by law. Electronically signed by: Paul Botello M.D. 04/16/2023 10:19 AM
--- OUTSIDE RECORDS SUMMARY | 2023-04-16 10:47 | External Medical Summary ---
Author Name Unknown Address Unknown Organization K1F:[facility] - [address] [place] [address] Laboratory Report Ordering Provider Test Date Status LILY MIMS 04/14/2023 14:46:00 Final Observation Date Value Abnormality Reference (Units ) Status Ethanol 04/14/2023 14:46:00 Negative Negative Final Performing Location [facility] [address] [place] [address]
--- OUTSIDE RECORDS SUMMARY | 2023-04-16 10:47 | External Medical Summary ---
Author Name Unknown Address Unknown Organization K01:[facility] - [address] [place] [address] Laboratory Report Ordering Provider Test Date Status LILY MIMS 04/14/2023 14:13:00 Final Observation Date Value Abnormality Reference (Units ) Status Hep A IgM 04/14/2023 14:13:00 Negative Negative Final Hep B Core IgM 04/14/2023 14:13:00 Negative Negat colby Final Hep B surface Ag 04/14/2023 14:13:00 Negative Neg ative Final Hep C Ab 04/14/2023 14:13:00 Negative Negative Final Performing Location [facility] - [address] [place] [address]
--- OUTSIDE RECORDS SUMMARY | 2023-04-16 10:47 | External Medical Summary | Summary of Care ---
Author Name Unknown Organization [facility] Address [address] [place] [address] Phone [phone] Care Team Providers [employer] Name Role Phone Carlitos Rain MD Primary Care Provider Encounter Details Date Type Department Care Team (Late st Contact Info) Description 04/15/2023 Population Health External Data Unspecified Department Allergies Active Allergy Reactions Criticality Noted Date Comments Pollen 02/10/2022 documented as of this encounter (statuses as of 04/15/2023) Medications Medication Sig Dispensed Refills Start Date End Date Status cetirizine (ZYRTEC) 10 MG TabletIndications:Sea huang allergies Take 1 Tab by mouth daily. 90 Tab 3 06/09/2018 Active Montelukast Sodium 10 MG Oral Tablet Take by mouth daily. 0 01/07/2021 Active Alcohol Prep Pads 70 % PadIndications:Type 2 diabetes mellitus with hemoglobin A1c goal of less than 7.0% (HCC) Use for injections. Injects trulicity once weekly 100 Each 1 03/26/2022 Active OneTouch Verio In Vitro Strip (Glucose Blood)Indications:Typ e 2 diabetes mellitus with hemoglobin A1c goal of less than 8.0% (HCC) Use up to 4 times a day E11.9 400 Strip 2 04/29/2022 Active OneTouch Delica Plus [id number]: Type 2 diabetes mellitus with hemoglobin A1c goal of less than 8.0% (HCC) Up to 4 times a day E11.9 400 Each 2 04/29/2022 Active Ondansetron 4 MG Oral Tablet DisintegratingIndicat ions:Nausea without vomiting Place 1 Tablet on tongue every 8 hours as needed for Nausea. dissolve on tongue. 20 Tablet 0 05/19/2022 Active Atorvastatin Calcium 10 MG Oral Tablet (Lipitor)Indications: Mixed hyperlipidemia TAKE 1 TABLET BY MOUTH DAILY 90 Tablet 3 10/06/2022 Active Vitamin D3 50 MCG (2000 UT) Oral Capsule TAKE 1 CAPSULE BY MOUTH DAILY 90 Capsule 3 10/06/2022 Active Dulaglutide 1.5 MG/0.5ML Subcutaneous Solution Pen-injector (Trulicity)Indication s:Type 2 diabetes mellitus with hemoglobin A1c goal of less than 7.0% ([facility]) Inject 1.5 mg under the skin once a week. 6 mL 2 10/29/2022 Active Esomeprazole Magnesium 40 MG Oral Capsule Delayed Release (NexIUM)Indications:G astroesophageal reflux disease, unspecified whether esophagitis present Take 1 Capsule by mouth daily. 30-60 min prior to the first main meal of the day. 90 Capsule 1 11/29/2022 Active traZODone HCl 50 MG Oral Tablet (Desyrel) Take 1 Tablet by mouth at bedtime. 30 Tablet 5 12/10/2022 Active buPROPion HCl ER (XL) 150 MG Oral Tablet Extended Release 24 Hour (Wellbutrin XL)Indications:Anxiet y and depression Take 1 Tablet by mouth in the morning. 30 Tablet 5 12/29/2022 Active Topiramate 50 MG Oral Tablet (topAMAX) Take 1 Tablet by mouth in the morning and 1 Tablet before bedtime. 60 Tablet 5 01/11/2023 Active Pramipexole Dihydrochloride 0.5 MG Oral Tablet (Mirapex) Take 1 Tablet by mouth at bedtime. 30 Tablet 5 02/14/2023 Active Albuterol Sulfate HFA 108 (90 Base) MCG/ACT Inhalation Aerosol SolutionIndications:W heezing Inhale 2 Puffs by mouth every 4 hours as needed for Shortness of Breath or Wheezing. As needed 18 g 2 02/15/2023 Active Cyclobenzaprine HCl 10 MG Oral Tablet (Flexeril) Take 1 Tablet by mouth in the morning and 1 Tablet at noon and 1 Tablet before bedtime. 0 01/03/2023 Active metFORMIN HCl ER 500 MG Oral Tablet Extended Release 24 Hour (Glucophage XR)Indications:Type 2 diabetes mellitus with hemoglobin A1c goal of less than 8.0% (HCC) Take 1 Tablet by mouth in the morning. 90 Tablet 3 03/21/2023 Active Pregabalin 150 MG Oral Capsule (Lyrica)Indications:L umbosacral radiculopathy Take 1 Capsule by mouth in the morning and 1 Capsule at noon and 1 Capsule before bedtime. 90 Capsule 1 03/23/2023 Active busPIRone HCl 10 MG Oral Tablet (Buspar)Indications:A nxiety Take 1 Tablet by mouth in the morning and 1 Tablet at noon and 1 Tablet before bedtime. 90 Tablet 1 04/01/2023 Active Polyethylene Glycol 3350 17 GM/SCOOP Oral Powder (MiraLax)Indications: Constipation, unspecified constipation type Take 17 g by mouth as needed for Constipation. Dissolve one heaping tablespoon in 8 ounces of water or juice. 850 g 2 04/01/2023 Active Acetaminophen 500 MG Oral Tablet (Tylenol)Indications: Sore throat Take 2 Tablets by mouth every 6 hours as needed for Pain, Moderate. 100 Tablet 1 04/01/2023 Active Azithromycin 250 MG Oral Tablet (Zithromax Z-Talib)Indications:Cou gh, unspecified type Take two tablets by mouth on first day, then 1 tablet daily until gone 6 Tablet 0 04/01/2023 Active hydrOXYzine HCl 25 MG Oral TabletIndications:Anx iety Take 1 Tablet by mouth every 6 hours as needed for Anxiety. 40 Tablet 2 04/05/2023 Active oxyCODONE HCl 5 MG Oral Tablet (Oxy IR)Indications:Acute exacerbation of chronic low back pain,Other intervertebral disc displacement, lumbosacral region Take 1 Tablet by mouth every 6 hours as needed for Pain, Severe. 60 Tablet 0 04/11/2023 Active documented as of this encounter (statuses as of 04/15/2023) Active Problems Problem Noted Date Diagnosed Date Anxiety and depression 02/16/2023 Generalized osteoarthritis 10/28/2022 Predominant disturbance of emotions 09/23/2022 Type 2 diabetes mellitus wit h hemoglobin A1c goal of less than 7.0% 03/25/2022 Spinal stenosis of lumbar region with radiculopa thy 02/18/2022 Restless legs syndrome 02/18/2022 Hypertension goal BP (blood pressure) < 140/90 0 02/18/2022 Gastroesophageal reflux disease 02/18/2022 Perennial allergic rhinitis 02/18/2022 Chronic diarrhea 02/18/2022 Migraine without status migrainosus, not intract able 02/18/2022 Tobacco use disorder 10/13/2018 Seasonal allergies 06/09/2018 B12 deficiency 06/09/2018 S/P hysterectomy 06/09/2018 Neuralgia and neuritis 06/09/2018 Chronic low back pain with sciatica 06/09/2018 Other intervertebral disc displacement, lumbosac ral region 06/09/2018 Primary osteoarthritis of both knees 06/09/2018 Chronic pain syndrome 06/09/2018 Cervicalgia 06/09/2018 Lumbosacral radiculopathy 06/09/2018 documented as of this encounter (statuses as of 04/15/2023) Resolved Problems Problem Noted Date Diagnosed Date Resolved Date Morbid (severe) obesity due to excess calories 02/16/2023 02/18/2023 Food insecurity 08/16/2022 03/24/2023 Overview: Per [facility] Protocol BMI 40.0-44.9, adult 02/18/2022 024 Nausea without vomiting 02/18/2022 08/0 02/2022 Migraine without status migr ainosus, not intractable 02/18/2022 09/07/2022 Rheumatoid arthritis involvi ng multiple sites with positive rheumatoid factor 02/18/2022 10/29/19 23 Acute calculous cholecystitis 01/29/2019 09/07/2022 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 10/02/2018 10/13/2018 BMI 45.0-49.9, adult 06/09/2018 023 Morbid obesity due to excess calories 06/09/2018 10/02/2018 Sacroiliitis, not elsewhere classified 06/09/2018 02/18/2023 Hematuria, gross 10/11/2014 06/09/2018 Urgency of urination 10/11/2014 019 Urinary frequency 10/11/2014 06/09/2018 documented as of this encounter (statuses as of 04/15/2023) Immunizations Name Administration Dates Next Due Hepatitis B, 20+ yrs 12/10/2022,06/02/2022 Pneumococcal Conjugate Vacci ne, 20-valent ([id number]) 04/14/2022 Pneumococcal Polysaccharide PPV23 (Pneumovax) 07/28/2020 Seasonal Influenza Vac, Quad , Cell Cult, PF, 6 Mos and Up, IM, (Flucelvax Quad) 11/17/2021 Seasonal Influenza, PF, 6 M & above, IM , (FluLaval or Fluzone) 12/10/2022,10/13/2018 Seasonal Influenza, Split, I IV3, With Preserve, Inj 11/07/2019,11/09/2018,10/13/2018,01/25,11/17/2016,09/07/2013 Seasonal Influenza, Trivalen t, High Dose, No Preserve, IM 11/18/2020 TDAP (age 10 and older)(Boostrix) 07/28/2020 documented as of this encounter Social History Tobacco Use Types Packs/Day Years Used Date Smoking Tobacco: Every Day Cigarettes Last attempted to quit: 04/09/2019 Smokeless Tobacco: Never Comments:Trying to quit smok ing and has been cutting back Alcohol Use Standard Drinks/Week Comments No 0 (1 standard drink = 0.6 oz pur e alcohol) occ PHQ-2 Answer Date Recorded PHQ Adult Total Score 0 02/16/2023 Hunger Vital Sign Answer Date Recorded Within the past 12 months, y ou worried that your food would run out before you got the money to buy more. Never true 02/16/19 24 Within the past 12 months, t he food you bought just didn't last and you didn't have money to get more. Never true 02/16/2023 Sex and Gender Information Value Date Recorded Sex Assigned at Female 10/13/2018 11:40 AM EDT Gender Identity Female 10/13/2018 11:40 AM EDT Sexual Orientation Straight 10/13/2018 11 :40 AM EDT Job Start Date Occupation Industry Not on file Not on file Not on file documented as of this encounter Plan of Treatment Upcoming Encounters Date Type Department Care Team (Late st Contact Info) Description 04/20/2023 9:00 AM EDT Office Visit Otolaryngology, [facility] S[facility] [address] [phone] Sorin Burks PA-C [address] [place] [address] 04/25/2023 2:00 PM EDT Office Visit [facility] [address] [place] [phone] Cait[facility] [place] [id number] 04/27/2023 8:45 AM EDT [address] [address] 05/06/2023 9:00 AM EDT Telemedicine Pharmacy, [address] [place] [address] [place], [facility] [address] [facility] [place] [id number] 05/26/2023 1:00 PM EDT [address] [address] 06/14/2023 11:20 AM EDT [address] [phone] [facility] [place] [address] 01/09/2024 10:30 AM EST [address] [address] Scheduled Procedures Name Priority Associated Diagnoses Date/Ti me COLONOSCOPY FLEXIBLE PROXIMA L DIAGNOSTIC Recall Screening for colon cancer Health Maintenance Due Date Last Done Comments DISCUSS TOBACCO CESSATION (REFER TO SMARTSET #[id number]) 1975 COVID-19 Vaccine (2022-24 season) 2022 Hepatitis B (3 of 3 - 19+ 3-dose series) 02/04/2023 12/10/2022, 06/02/2022 COLONOSCOPY-ANNUAL AGES 18-100 04/08/2023 04/07/2022, 04/07/2022, 12/28/2016 HbA1c 05/13/2023 11/11/2022, 05/09, 03/21/2022 Albumin/Creatinine Ratio 06/03/2023 06/02/2022 Diabetic Foot Exam 06/03/2023 06/02/2022 Diabetic Eye Exam 11/23/2023 11/22/2022, 04/07/2022 Mammogram 01/06/2024 01/05/2023, 06/09/2018 Depression Screening 02/17/2024 02/16/2023 GFR 04/13/2024 04/14/2023, 03/11, 11/11/2022, Additional history exists Lipid Panel 03/21/2027 03/21/2022, 020 10/2021, 02/19/2019, Additional history exists DTaP,Tdap,and Td Vaccines (2 - Td or Tdap) 07/28/2030 07/28/2020 Colonoscopy Discontinued 04/07/2022, 03/0 02/2022, 12/28/2016 Colorectal Cancer Screening Discontinued Pneumococcal Vaccine: Pediatrics (0 to 5 Years) and At-Risk Patients (6 to 64 Years) Completed 04/14/2022, 07/28/2020 Influenza Vaccine (FLU shot) Completed 12/10/2022, 11/17/2021, 11/18/2020, Additional history exists Cologuard Discontinued Fecal Occult Blood Test Discontinued GARDASIL-HPV IMMUNIZATION SERIES Aged Out No longer eligible based on patient's age to complete this topic MENINGOCOCCAL (MENACTRA/MENVEO) Aged Out No longer eligible based on patient's age to complete this topic Sigmoidoscopy Discontinued documented as of this encounter Medical Devices Not on filedocumented as of this encounter Care Teams [employer] Relationship Specialty Start Date End Date Carlitos Rain MD [address] [id number] PCP - General Family Medicine 02/18/22 documented as of this encounter
--- OUTSIDE RECORDS SUMMARY | 2023-04-16 10:47 | External Medical Summary | Summary of Care ---
Author Name Unknown Organization [facility] Address [address] [place] [address] Phone [phone] Care Team Providers Care Erecting Engineer Name Role Phone Carlitos Rain MD Primary Care Provider Reason for Visit * Reason Comments Back Pain * Auth/Cert Specialty Diagnoses / Procedures Referred By Rafiq pendleton Referred To Contact [facility] [address] [place] [address] Phone: [phone] Emergency Medicine [facility] [address] [place] [address] Referral ID Status Reason Start Date Expiration Date Visits Re quested Visits Authorized [id number] Encounter Details Date Type Department Care Team (Late st Contact Info) Description 04/14/2023 10:57 AM EST - 04/14/2023 4:[address] [facility] Emergency Department ([facility]) [address] [place] [address] Alan Fernandez, DO [address] [place] [address] Elevated LFTs (Primary Dx); Thoracic back pain; Acute midline low back pain, unspecified whether sciatica present Discharge Disposition: AMA Allergies Active Allergy Reactions Criticality Noted Date [...] Strip 2 04/29/2022 Active OneTouch Delica Plus [id number]: Type 2 diabetes mellitus with hemoglobin A1c [...] A1c goal of less than 7.0% (HCC) Inject 1.5 mg under the skin once [...] hemoglobin A1c goal of less than 8.0% ([facility]) Take 1 Tablet by mouth in the [...] 02/18/2023 Food insecurity 08/16/2022 03/24/2023 Overview: Per [facility] Protocol BMI 40.0-44.9, adult 02/18/2022 024 Nausea without vomiting 02/18/2022 08/0 02/2022 Migraine without status migr ainosus, not intractable 02/18/2022 09/07/2022 Rheumatoid arthritis involvi ng multiple sites with positive rheumatoid factor 02/18/2022 10/29/19 Acute calculous cholecystitis 01/29/2019 09/07/2022 Liver cirrhosis [...] yrs 12/10/2022,06/02/2022 Pneumococcal Conjugate Vacci ne, 20-valent ([id number]) 04/14/2022 Pneumococcal Polysaccharide PPV23 (Pneumovax) 07/28/2020 Seasonal [...] on file documented as of this encounter Last Filed Vital Signs Vital Sign Reading Time Taken Comments Blood Pressure 110/65 04/14/2023 3:10 PM EST Pulse 67 04/14/2023 3:10 PM EST Temperature 36.8 C (98.2 F) 04/14/2023 10:[address] Respiratory Rate 18 04/14/2023 3:10 PM EST Oxygen Saturation 99% 04/14/2023 10:43 AM EST Inhaled Oxygen Concentration - - Weight 79.4 kg (175 lb) 04/14/2023 10:43 AM EST Height 154.9 cm (5' 1") 04/14/2023 10:43 AM EST Body Mass Index 33.07 04/14/2023 10:43 AM EST documented in this encounter Procedure Notes * Deepak Iglesias DO - 04/14/2023 11:57 AM ESTAssociated Order(s): EKG REASON FOR STUDY: PAIN CONCLUSIONS: Normal sinus rhythm Normal ECG When compared with ECG of 30-Mar-2023 17:35, No significant change was found Ventricular Rate: 73 Atrial Rate: 73 WY Interval: 128 QRS Duration: 84 QT/QTc: 392/431 ms P-R-T Grandin: 12 : 10 : 13 degrees documented in this encounter ED Notes * Louisa Wolf RN - 04/14/2023 10:45 AM EST Pt advised to come in by PCP for ongoing lumbar back pain radiating into BLE and causing weakness, tingling, and numbness in BLE (RLE>LLE) for several days. Hx DDD and has required emergency surgery in the past. Denies urinary/bowel incontinence but has urinary urgency. She took Oxy IR 5mg at 0500 this AM without relief. Crying, restless in triage. documented in this encounter Miscellaneous Notes * ED Wireline Operator Note - Kimberly Fajardo RN - 04/14/2023 11:25 AM EST Patient presents to the ED for back pain. Per patient this has been ongoing for about 3 days, but now worsening. Patient states that pain radiates into her legs, right worse than left. Patient statesthat she does now have urinary incontinence but is feeling like she has to pee constantly. Patient with history of 5 back surgeries with the most recent being emergent by Dr. Mc. Patient with pain 10/10. 1340: spoke to MRI regarding pre med. Per MRI they will not be able to get her currently for the MRI. Will wait to give PO ativan. 1420: patient states that her pain is back to a 10/10. Patient states it was 7/10 at the lowest after medication. Provider made aware. Patient transferred to a wheelchair and then into the bathroom. 1545: Spoke with MRI regarding time for the MRI for the patient. Per MRI it will be 1730. Patient made aware. Patient states that she does not want to stay for that time. Dr. Fernandez made aware. 1602: patient signed AMA form. IV removed and patient ambulated from the unit with with allbelongings. Patient advised that she can return for care if she wishes. documented in this encounter Plan of Treatment Upcoming Encounters Date Type Department Care Team (Late st Contact Info) Description 04/20/2023 9:00 AM EDT Office Visit Otolaryngology, Kelsie Sánchez [address] [address] Sorin Burks PA-C [address] [place] [address] 04/25/2023 2:00 PM EDT [address] [phone] Cait[facility] [address] 04/27/2023 8:45 AM EDT [address] [address] 05/06/2023 9:00 AM EDT [address] [address] [place], [facility] [address] [place], [place] [address] [address] 05/26/2023 1:00 PM EDT App[address]ment [address] [address] 06/14/2023 11:20 AM EDT [address] [phone] Carlitos [facility] [address] 01/09/2024 10:30 AM EST App[address]ment Radiology, [address] [address] Pending Results Name Type Priority Associated Diagnoses Date /Time ANTINUCLEAR ANTIBODY (NE) EIA SCREEN WITH REFLEX AB QUANT Lab Routine 04/14/2023 2:13 PM EST ANTINUCLEAR ANTIBODY (NE) SCREEN, BARRETT Lab Routine 04/14/2023 2:13 PM EST Scheduled Orders Name Type Priority Associated Diagnoses Order Schedule MRI T SPINE WO CONTRAST Medical Imaging STAT Perform Now for 1 Occurrences starting 04/14/2023 until 04/14/2023 MRI L SPINE WO CONTRAST Medical Imaging STAT Perform Now for 1 Occurrences starting 04/14/2023 until 04/14/2023 ANTINUCLEAR ANTIBODY (NE) EIA SCREEN WITH REFLEX AB QUANT Lab Routine One Time for 1 Occurrences starting 04/14/2023 until 04/14/2023 ANTINUCLEAR ANTIBODY (NE) SCREEN, BARRETT Lab Routine Once for 1 Occurrences starting 04/14/2023 until 04/14/2023 Scheduled Procedures Name Priority Associated Diagnoses Date/Ti me COLONOSCOPY FLEXIBLE PROXIMA L DIAGNOSTIC Recall Screening for colon cancer Health Maintenance Due Date Last Done Comments DISCUSS TOBACCO CESSATION (REFER TO SMARTSET #1981) 1975 COVID-19 Vaccine (2022- season) 2022 Hepatitis B (3 of 3 [...] or Tdap) 07/28/2030 07/28/2020 Colonoscopy Discontinued 04/07/2022, 02/2022, 12/28/2016 Colorectal Cancer Screening Discontinued Pneumococcal [...] Not on filedocumented as of this encounter Procedures Procedure Name Priority Date/Time Associated Diagnosis Comments ETHANOL, MEDICAL Add-on 04/14/2023 2:46 PM EST US ABDOMEN LIMITED STAT 04/14/2023 2: 17 PM EST ACUTE HEPATITIS PANEL STAT 04/14/2023 2:13 PM EST DIFFERENTIAL, AUTOMATED STAT 04/14/2023 12:49 PM EST TROPONIN T, HIGH SENSITIVITY STAT 04/14/2023 12:49 PM EST CRP (INFLAMMATORY MARKER) STAT 04/14/2023 12:49 PM EST COMPREHENSIVE METABOLIC PANEL STAT 04/14/2023 12:49 PM EST CBC STAT 04/14/2023 12:49 PM EST LIPASE STAT 04/14/2023 12:49 PM EST CBC STAT 04/14/2023 12:49 PM EST XR CHEST 1 VIEW STAT 04/14/2023 12:29 PM EST URINALYSIS, REFLEX TO MICROSCOPIC STAT 04/14/2023 12:22 PM EST HC ECG TRACING ONLY STAT 04/14/2023 1 1:57 AM EST Thoracic back pain documented in this encounter Results * ETHANOL, MEDICAL (04/14/2023 2:46 PM EST) ETHANOL, MEDICAL Negative Negative 04/14/2023 3:00 PM EST LABORATORY GL Blood Venous blood specimen / Unknown Venipuncture / Unknown 04/14/2023 2:46 PM EST 04/14/2023 2:49 PM EST Valeria Cheatham PA-C LAB BLOOD ORDERABLE S LABORATORY GL [address] [place] [address] * US ABDOMEN LIMITED (04/14/2023 2:17 PM EST) Anatomical Region Laterality Modality Abdomen, Body Ultrasound 04/14/2023 1:44 PM EST Impressions 04/14/2023 2:23 PM EST IMPRESSION: 1. Liver unremarkable by ultrasound criteria 2. Status post cholecystectomy. 3. Dilatation of the biliary tree and common bile duct. While this may be associated with postoperative changes of previous cholecystectomy, obstructive process not excluded. Recommend correlation with labs. If further imaging required consider MRCP. THIS DOCUMENT HAS BEEN ELECTRONICALLY SIGNED BY NUNO TAYLOR MD Narrative 04/14/2023 2:23 PM EST PROCEDURE INFORMATION: Exam: US Abdomen, Limited; Right Upper Quadrant Exam date and time: 04/14/2023 1:44 PM Age: 47 years old Clinical indication: Abnormal findings; Abnormal lab test; Elevated liver enzymes; Prior surgery; Surgery date: 6+ months; Surgery type: Paty; Additional info: Elevated lfts TECHNIQUE: Imaging protocol: Real time ultrasound of the abdomen with image documentation. Limited exam focused on the right upper quadrant. COMPARISON: US ABDOMEN LIMITED 01/28/2019 3:00 PM FINDINGS: Liver: Liver is homogeneous. No focal abnormality identified Gallbladder: There has been a cholecystectomy. Biliary ducts: There is intra and extrahepatic bile duct dilatation. Common bile duct measures 9 mm. Pancreas: Pancreas poorly seen due to overlying bowel gas. Right kidney: Right kidney 9.9 cm. Appearance unremarkable.There is no evidence of hydronephrosis. Procedure Note Nuno Taylor MD - 04/14/2023 PROCEDURE INFORMATION: Exam: US Abdomen, Limited; Right Upper Quadrant Exam date and time: 04/14/2023 1:44 PM Age: 47 years old Clinical indication: Abnormal findings; Abnormal lab test; Elevated liver enzymes; Prior surgery; Surgery date: 6+ months; Surgery type: Paty; Additional info: Elevated lfts TECHNIQUE: Imaging protocol: Real time ultrasound of the abdomen with imagedocumentation. Limited exam focused on the right upper quadrant. COMPARISON: US ABDOMEN LIMITED 01/28/2019 3:00 PM FINDINGS: Liver: Liver is homogeneous. No focal abnormality identified Gallbladder: There has been a cholecystectomy. Biliary ducts: There is intra and extrahepatic bile duct dilatation.Common bile duct measures 9 mm. Pancreas: Pancreas poorly seen due to overlying bowel gas. Right kidney: Right kidney 9.9 cm. Appearance unremarkable.There is noevidence of hydronephrosis. IMPRESSION IMPRESSION: 1. Liver unremarkable by ultrasound criteria 2. Status post cholecystectomy. 3. Dilatation of the biliary tree and common bile duct. While this maybe associated with postoperative changes of previous cholecystectomy,obstructive process not excluded. Recommend correlation with labs. If further imaging required consider MRCP. THIS DOCUMENT HAS BEEN ELECTRONICALLY SIGNED BY NUNO TAYLOR MD Valeria Cheatham PA-C RAD ULTRASOUND * ACUTE HEPATITIS PANEL (04/14/2023 2:13 PM EST) Pathologist [facility] Hepatitis A Antibody IgM Negative Negative 04/14/2023 9:04 PM EST LABORATORY [facility] Hepatitis B Core Antibody IgM Negative Negative 04/14/2023 9:04 PM EST LABORATORY [facility] Hepatitis B Surface Antigen Negative Negative 04/14/2023 9:04 PM EST LABORATORY [facility] Hepatitis C Antibody Negative Negative 04/14/2023 9:04 PM EST LABORATORY [facility] Blood Venous blood specimen / Unknown Venipuncture / Unknown 04/14/2023 2:13 PM EST 04/14/2023 2:18 PM EST Valeria Cheatham PA-C LAB BLOOD ORDERABLE S LABORATORY [facility] [address] [place] [address] * (ABNORMAL) DIFFERENTIAL, AUTOMATED (04/14/2023 12:49 PM EST) WBC 3.91(L) 4.00 - 10.80 K/uL 04/14/2023 12:55 PM EST LABORATORY GL Neutrophils % 46.8 40.0 - 75.0 % 04/14/2023 12:55 PM EST LABORATORY [facility] Lymphocytes % 40.9 18.0 - 42.0 % 04/14/2023 12:55 PM EST LABORATORY [facility] Monocytes % 9.2 1.0 - 11.0 % 04/14/2023 12:55 PM EST LABORATORY [facility] Eosinophils % 2.6 0.0 - 6.0 % 04/14/2023 12:55 PM EST LABORATORY [facility] Basophils % 0.5 0.0 - 2.0 % 04/14/2023 12:55 PM EST LABORATORY GL Immature Granulocytes % 0.0 0.0 - 2.0 % 04/14/2023 12:55 PM EST LABORATORY GL Absolute Neutrophils 1.83 1.80 - 7.70 K/uL 04/14/2023 12:55 PM EST LABORATORY GL Absolute Lymphocytes 1.60 1.00 - 4.80 K/ul 04/14/2023 12:55 PM EST LABORATORY [facility] Absolute Monocytes 0.36 0.00 - 1.10 K/uL 04/14/2023 12:55 PM EST LABORATORY GL Absolute Eosinophils 0.10 0.00 - 0.70 K/uL 04/14/2023 12:55 PM EST LABORATORY GL Absolute Basophils 0.02 0.00 - 0.20 K/uL 04/14/2023 12:55 PM EST LABORATORY GL Absolute Immature Granulocytes 0.00 0.00 - 0.20 K/uL 04/14/2023 12:55 PM EST LABORATORY GL Blood Venous blood specimen / Unknown Venipuncture / Unknown 04/14/2023 12:49 PM EST 04/14/2023 12:52 PM EST Valeria Cheatham PA-C LAB BLOOD ORDERABLE S LABORATORY [facility] [address] [place] [address] * (ABNORMAL) CBC (04/14/2023 12:49 PM EST) WBC 3.91(L) 4.00 - 10.80 K/uL 04/14/2023 12:55 PM EST LABORATORY [facility] RBC 4.10 3.85 - 5.15 M/uL 04/14/2023 12:55 PM EST LABORATORY [facility] HGB 13.2 12.0 - 15.3 g/dL 04/14/2023 12:55 PM EST LABORATORY GL HCT 40.0 36.0 - 45.2 % 04/14/2023 12:55 PM EST LABORATORY [facility] MCV 97.6 81.5 - 97.5 fL 04/14/2023 12:55 PM EST LABORATORY GL MCH 32.2 27.0 - 34.0 pg 04/14/2023 12:55 PM EST LABORATORY GL MCHC 33.0 32.0 - 36.0 g/dL 04/14/2023 12:55 PM EST LABORATORY [facility] RDW 13.4 11.5 - 15.5 % 04/14/2023 12:55 PM EST LABORATORY GL PLT 145 140 - 400 K/uL 04/14/2023 12:55 PM EST LABORATORY [facility] MPV 11.4 6.6 - 11.1 fL 04/14/2023 12:55 PM EST LABORATORY GL nRBCs 0 <=0 /100 WBCs 04/14/2023 12:55 PM EST LABORATORY [facility] Blood Venous blood specimen / Unknown Venipuncture / Unknown 04/14/2023 12:49 PM EST 04/14/2023 12:52 PM EST Valeria Cheatham PA-C LAB BLOOD ORDERABLE S Performing Organization Address City/State/[facility] Co de Phone Number LABORATORY [address] [address] * CRP (INFLAMMATORY MARKER) (04/14/2023 12:49 PM EST) CRP (Inflammatory Marker) <3 <=5 mg/L 04/14/2023 1:25 PM EST LABORATORY [facility] Blood Venous blood specimen / Unknown Venipuncture / Unknown 04/14/2023 12:49 PM EST 04/14/2023 12:52 PM EST Valeria Cheatham PA-C LAB BLOOD ORDERABLE S LABORATORY [address] [address] * LIPASE (04/14/2023 12:49 PM EST) Lipase 20 13 - 60 U/L 04/14/2023 1:25 PM EST LABORATORY [facility] Blood Venous blood specimen / Unknown Venipuncture / Unknown 04/14/2023 12:49 PM EST 04/14/2023 12:52 PM EST Valeria BLACKC LAB BLOOD ORDERABLE S Performing Organization Address [facility]/ZIP Co de Phone Number LABORATORY [address] [address] * TROPONIN T, HIGH SENSITIVITY (04/14/2023 12:49 PM EST) Troponin T, High Sensitivity 7 <=14 ng/L 04/14/2023 1:09 PM EST LABORATORY [facility] Blood Venous blood specimen / Unknown Venipuncture / Unknown 04/14/2023 12:49 PM EST 04/14/2023 12:52 PM EST Valeria BLACKC LAB BLOOD ORDERABLE S Performing Organization Address City/[facility]/ZIP Co de Phone Number LABORATORY [address] [address] * (ABNORMAL) COMPREHENSIVE METABOLIC PANEL (04/14/2023 12:49 PM EST) BUN 12 6 - 20 mg/dL 04/14/2023 1:25 PM EST LABORATORY GL Creatinine 0.9 0.5 - 1.0 mg/dL 04/14/2023 1:25 PM EST LABORATORY GL Estimated Glomerular Filtration Rate 84 >=60 mL/min 04/14/2023 1:25 PM EST LABORATORY GL Comment:eGFR is calculated b ased on the CKD-EPI 2020 equation Sodium 137 135 - 146 mmol/L 04/14/2023 1:25 PM EST LABORATORY GLH Potassium 3.9 3.5 - 5.1 mmol/L 04/14/2023 1:25 PM EST LABORATORY [facility] Chloride 102 98 - 107 mmol/L 04/14/2023 1:25 PM EST LABORATORY GL[facility] CO2 24 22 - 32 mmol/L 04/14/2023 1:25 PM EST LABORATORY [facility] Anion Gap 11 7 - 15 mmol/L 04/14/2023 1:25 PM EST LABORATORY GL[facility] Glucose 80 70 - 120 mg/dL 04/14/2023 1:25 PM EST LABORATORY [facility] Albumin 4.0 3.8 - 5.0 g/dL 04/14/2023 1:25 PM EST LABORATORY [facility] AST 1,199(H) 10 - 35 U/L 04/14/2023 1:25 PM EST LABORATORY [facility] Comment:Result may be falsel y elevated due to hemolysis. Alkaline Phosphatase 363(H) 35 - 130 U/L 04/14/2023 1:25 PM EST LABORATORY [facility] Bilirubin, Total 0.6 <=1.2 mg/dL 04/14/2023 1:25 PM EST LABORATORY [facility] Calcium 9.5 8.4 - 10.2 mg/dL 04/14/2023 1:25 PM EST LABORATORY [facility] Protein 6.6 6.0 - 8.3 g/dL 04/14/2023 1:25 PM EST LABORATORY [facility] ALT 866(H) 10 - 35 U/L 04/14/2023 1:25 PM EST LABORATORY [facility] Blood Venous blood specimen / Unknown Venipuncture / Unknown 04/14/2023 12:49 PM EST 04/14/2023 12:52 PM EST Valeria Cheatham PA-C LAB BLOOD ORDERABLE S LABORATORY [facility] [address] [place] [address] * XR CHEST 1 VIEW (04/14/2023 12:29 PM EST) Anatomical Region Laterality Modality Chest Digital Radiogra phy 04/14/2023 12:2 6 PM EST Impressions 04/14/2023 12:46 PM EST IMPRESSION: 1. Low lung volumes with atelectasis. No focal consolidation 2. Postoperative changes of the lower thoracic spine. THIS DOCUMENT HAS BEEN ELECTRONICALLY SIGNED BY NUNO TAYLOR MD Narrative 04/14/2023 12:46 PM EST PROCEDURE INFORMATION: Exam: XR Chest Exam date and time: 04/14/2023 12:26 PM Age: 47 years old Clinical indication: Other: Upper back pain; Additional info: Thoracic back pain TECHNIQUE: Imaging protocol: Radiologic exam of the chest. Views: 1 view. COMPARISON: CT ABD/PELVIS W IV CONTRAST - WO ORAL CONTRAST 03/30/2023 7:40 PM FINDINGS: Lungs: There is poor ventilation of the lungs, accounting for mild diffuse increase in pulmonary parenchymal density. Pleural spaces: Unremarkable. No pleural effusion. No pneumothorax. Heart/Mediastinum: Cardiac silhouette mildly prominent which is likely projectional due to poor inspiration. Bones/joints: Surgical changes are incidentally noted in the spine. Procedure Note Nuno Taylor MD - 04/14/2023 PROCEDURE INFORMATION: Exam: XR Chest Exam date and time: 04/14/2023 12:26 PM Age: 47 years old Clinical indication: Other: Upper back pain; Additional info: Thoracicback pain TECHNIQUE: Imaging protocol: Radiologic exam of the chest. Views: 1 view. COMPARISON: CT ABD/PELVIS W IV CONTRAST - WO ORAL CONTRAST 03/30/2023 7:40 PM FINDINGS: Lungs: There is poor ventilation of the lungs, accounting for mild diffuse increase in pulmonary parenchymal density. Pleural spaces: Unremarkable. No pleural effusion. No pneumothorax. Heart/Mediastinum: Cardiac silhouette mildly prominent which is likely projectional due to poor inspiration. Bones/joints: Surgical changes are incidentally noted in the spine. IMPRESSION IMPRESSION: 1. Low lung volumes with atelectasis. No focal consolidation 2. Postoperative changes of the lower thoracic spine. THIS DOCUMENT HAS BEEN ELECTRONICALLY SIGNED BY NUNO TAYLOR MD Valeria Cheatham PA-C RADIOLOGY ([facility]) * (ABNORMAL) URINALYSIS, REFLEX TO MICROSCOPIC (04/14/2023 12:22 PM EST) Color, Urine Yellow Light Yellow, Yellow, Dark Yellow 04/14/2023 1:00 PM EST LABORATORY GL Clarity, Urine Clear Clear 04/14/2023 1:00 PM EST LABORATORY GLH Glucose, Urine Negative Negative mg/dL 04/14/2023 1:00 PM EST LABORATORY [facility] Bilirubin, Urine Negative Negative 04/14/2023 1:00 PM EST LABORATORY [facility] Ketone, Urine Negative Negative mg/dL 04/14/2023 1:00 PM EST LABORATORY [facility] Specific [place], Urine 1.004 1.003 - 1.030 04/14/2023 1:00 PM EST LABORATORY [facility] Blood, Urine Negative Negative 04/14/2023 1:00 PM EST LABORATORY GL[facility] pH, Urine 8.0(H) 5.0 - 7.5 Units 04/14/2023 1:00 PM EST LABORATORY [facility] Protein, Urine Negative Negative mg/dL 04/14/2023 1:00 PM EST LABORATORY [facility] Urobilinogen, Urine 1.0 0.2, 1.0 mg/dL 04/14/2023 1:00 PM EST LABORATORY [facility] Nitrite, Urine Negative Negative 04/14/2023 1:00 PM EST LABORATORY [facility] Esterase, Urine Negative Negative 1:00 PM EST LABORATORY [facility] Comment, Urine 04/14/2023 1:00 PM EST LABORATORY GL[facility] Comment:Screen negative - Mi croscopic not performed. Urine Urine specimen obtained by clean catch procedure / Unknown Non-blood Collection / Unknown 04/14/2023 12:22 PM EST 04/14/2023 12:29 PM EST Valeria Cheatham PA-C LAB URINE ORDERABLE S Performing Organization Address City/State/[facility] Co de Phone Number LABORATORY [facility] [address] [place] [address] * EKG (04/14/2023 11:57 AM EST) 04/14/2023 11:5 7 AM EST Narrative Procedure Note Deepak Iglesias DO - 04/14/2023 11:57 AM EST REASON FOR STUDY: PAIN CONCLUSIONS: Normal sinus rhythm Normal ECG When compared with ECG of 30-Mar-2023 17:35, No significant change was found Ventricular Rate: 73 Atrial Rate: 73 WY Interval: 128 QRS Duration: 84 QT/QTc: 392/431 ms P-R-T Grandin: 12 : 10 : 13 degrees Valeria Cheatham PA-C EKG [facility] documented in this encounter Visit Diagnoses Diagnosis Elevated LFTs- Primary Other abnormal blood chemistry Thoracic back pain Pain in thoracic spine Acute midline low back pain, unspecified whether sciatica present documented in this encounter Administered Medications Inactive Administered Medications - up to 3 most recent administrations Medication Order MAR Action Action Date Dose Rate Site HYDROmorphone (Dilaudid) inj 0.5 mg 0.5 mg, IV Push, ONCE, On Amanda 24 at 1515, For 1 dose Given 04/14/2023 2:39 PM EST 0.5 mg Morphine Sulfate (PF) inj 4 mg 4 mg, IV Push, ONCE, On Amanda 24 at 1230, For 1 dose Given 04/14/2023 12:55 PM EST 4 mg ondansetron (Zofran) inj 4 mg 4 mg, Intravenous, ONCE, On Amanda 24 at 1230, For 1 dose Given 04/14/2023 12:52 PM EST 4 mg documented in this encounter Active and Recently Administered Medications Times are shown in EST. Scheduled Medication Order 04/12/2023 04/13/2023 04/14/2023 HYDROmorphone (Dilaudid) inj 0.5 mg (COMPLETED) 0.5 mg, IV Push, ONCE, On Amanda 24 at 1515, For 1 dose 1439 (Given - Provid er: Kimberly Fajardo RN) LORazepam (Ativan) tab 1 mg 1 mg, Oral, ONCE, On Amanda 324 at 1300, For 1 dose 1500 (Not Given - Pr ovider: Kimberly Fajardo RN - Reason: Order Clarified - Comment: Pre med for MRI. patient AMA prior to MRI) Morphine Sulfate (PF) inj 4 mg (COMPLETED) 4 mg, IV Push, ONCE, On Amanda 324 at 1230, For 1 dose 1255 (Given - Provid er: Kimberly Fajardo RN) ondansetron (Zofran) inj 4 mg (COMPLETED) 4 mg, Intravenous, ONCE, On Amanda 37/24 at 1230, For 1 dose 1252 (Given - Provid er: Kimberly Fajardo RN) documented in this encounter Care Teams Erecting Engineer Relationship Specialty Start Date End Date Carlitos Rain MD [address] [address] PCP - General Family Medicine 02/18/22 documented as of this encounter
--- OUTSIDE RECORDS SUMMARY | 2023-04-16 10:48 | External Medical Summary | Summary of Care ---
Author Name Unknown Organization [facility] Address [address] [place] [address] Phone [phone] Care Team Providers Care Advanced Practice Nurse Name Role Phone Carlitos Rain MD Primary Care Provider Reason for Referral * Medication Prior Authorization - Closed Specialty Diagnoses / Procedures Referred By Contac t Referred To Contact Diagnoses Sore throat Dylan Ramirez MD [address] [place] [address] Referral ID Status Reason Start Date Expiration Date Visits Re quested Visits Authorized [id number] Closed 999 999 * Medication Prior Authorization - Closed Specialty Diagnoses / Procedures Referred By Contac t Referred To Contact Diagnoses Constipation, unspecified constipation type Dylan Ramirez MD [address] [place] [address] Referral ID Status Reason Start Date Expiration Date Visits Re quested Visits Authorized [id number] Closed 999 999 * Precert (Within 10 days (routine)) - Pending Review Specialty Diagnoses / Procedures Referred By Contac t Referred To Contact Radiology Diagnoses RUQ pain Abnormal CT scan Procedures MRI LIVER W WO CONTRAST Dylan Ramirez MD [address] [place] [address] Referral ID Status Reason Start Date Expiration Date V isits Requested Visits Authorized [id number] Pending Review 04/02/2023 999 999 * Precert (Within 10 days (routine)) - Authorized Specialty Diagnoses / Procedures Referred By Contac t Referred To Contact Cardiac Studies Diagnoses History of atrial dilatation Procedures ECHO, COMPLETE (2D), TRANS-THORACIC Dylan Ramirez MD 21 [facility] [place] [address] Referral ID Status Reason Start Date Expiration Date V isits Requested Visits Authorized [id number] Authorized Precert 04/01/2023 999 999 Reason for Visit * Reason Comments Emergency Department Follow-Up [facility] 03/30 Chest pain Encounter Details Date Type Department Care Team (Late st Contact Info) Description 04/01/2023 2:40 PM EST Office Visit [place] [address] [address] [place] [phone] Dylan Ramirez MD 21 [facility] [place] [address] Anxiety*; Thyroid nodule; History of atrial dilatation; RUQ pain; Abnormal CT scan; Constipation, unspecified constipation type; Low platelet count (HCC); Sore throat; Cough, unspecified type; Hypertension goal BP (blood pressure) < 140/90; Adjustment disorder with mixed anxiety and depressed mood Allergies Active Allergy Reactions Criticality Noted Date Comments Pollen 02/10/2022 documented as of this encounter (statuses as of 04/04/2023) Medications Medication Sig Dispensed Refills Start Date End Date Status cetirizine (ZYRTEC) 10 MG TabletIndications:Se asonal allergies Take 1 Tab by mouth daily. 90 Tab 3 06/09/2018 Active Montelukast Sodium 10 MG Oral Tablet Take by mouth daily. 0 01/07/2021 Active Alcohol Prep Pads 70 % PadIndications:Type 2 diabetes mellitus with hemoglobin A1c goal of less than 7.0% (HCC) Use for injections. Injects trulicity once weekly 100 Each 1 03/26/2022 Active OneTouch Verio In Vitro Strip (Glucose Blood)Indications:Ty pe 2 diabetes mellitus with hemoglobin A1c goal of less than 8.0% (HCC) Use up to 4 times a day E11.9 400 Strip 2 04/29/2022 Active OneTouch Delica Plus [id number] :Type 2 diabetes mellitus with hemoglobin A1c goal of less than 8.0% (HCC) Up to 4 times a day E11.9 400 Each 2 04/29/2022 Active Ondansetron 4 MG Oral Tablet DisintegratingIndica tions:Nausea without vomiting Place 1 Tablet on tongue every 8 hours as needed for Nausea. dissolve on tongue. 20 Tablet 0 05/19/2022 Active Atorvastatin Calcium 10 MG Oral Tablet (Lipitor)Indications :Mixed hyperlipidemia TAKE 1 TABLET BY MOUTH DAILY 90 Tablet 3 10/06/2022 Active Vitamin D3 50 MCG (2000 UT) Oral Capsule TAKE 1 CAPSULE BY MOUTH DAILY 90 Capsule 3 10/06/2022 Active Dulaglutide 1.5 MG/0.5ML Subcutaneous Solution Pen-injector (Trulicity)Indicatio ns:Type 2 diabetes mellitus with hemoglobin A1c goal of less than 7.0% (HCC) Inject 1.5 mg under the skin once a week. 6 mL 2 10/29/2022 Active Esomeprazole Magnesium 40 MG Oral Capsule Delayed Release (NexIUM)Indications: Gastroesophageal reflux disease, unspecified whether esophagitis present Take 1 Capsule by mouth daily. 30-60 min prior to the first main meal of the day. 90 Capsule 1 11/29/2022 Active traZODone HCl 50 MG Oral Tablet (Desyrel) Take 1 Tablet by mouth at bedtime. 30 Tablet 5 12/10/2022 Active buPROPion HCl ER (XL) 150 MG Oral Tablet Extended Release 24 Hour (Wellbutrin XL)Indications:Anxie ty and depression Take 1 Tablet by mouth [...] HFA 108 (90 Base) MCG/ACT Inhalation Aerosol SolutionIndications: Wheezing Inhale 2 Puffs by mouth every 4 [...] hemoglobin A1c goal of less than 8.0% ([facility]) Take 1 Tablet by mouth in the morning. 90 Tablet 3 03/21/2023 Active Pregabalin 150 MG Oral Capsule (Lyrica)Indications: Lumbosacral radiculopathy Take 1 Capsule by mouth in the morning and 1 Capsule at noon and 1 Capsule before bedtime. 90 Capsule 1 03/23/2023 Active oxyCODONE HCl 5 MG Oral Tablet (Oxy IR)Indications:Acute exacerbation of chronic low back pain,Other intervertebral disc displacement, lumbosacral region Take 1 Tablet by mouth every 6 hours as needed for Pain, Severe. 60 Tablet 0 03/25/2023 Active hydrOXYzine HCl 10 MG Oral Tablet (Atarax)Indications: Anxiety Take 1 Tablet by mouth every 6 hours as needed for Anxiety. 20 Tablet 0 04/01/2023 Active busPIRone HCl 10 MG Oral Tablet (Buspar)Indications: Anxiety Take 1 Tablet by mouth in the morning and 1 Tablet at noon and 1 Tablet before bedtime. 90 Tablet 1 04/01/2023 Active Polyethylene Glycol 3350 17 GM/SCOOP Oral Powder (MiraLax)Indications :Constipation, unspecified constipation type Take 17 g by mouth as needed for Constipation. Dissolve one heaping tablespoon in 8 ounces of water or juice. 850 g 2 04/01/2023 Active Acetaminophen 500 MG Oral Tablet (Tylenol)Indications :Sore throat Take 2 Tablets by mouth every 6 hours as needed for Pain, Moderate. 100 Tablet 1 04/01/2023 Active Azithromycin 250 MG Oral Tablet (Zithromax Z-Talib)Indications:Co ugh, unspecified type Take two tablets by mouth on first day, then 1 tablet daily until gone 6 Tablet 0 04/01/2023 Active predniSONE 20 MG Oral Tablet (Deltasone)Indicatio ns:Cough, unspecified type Take 2 Tablets by mouth in the morning for 5 days. 10 Tablet 0 04/01/2023 4 Active busPIRone HCl 5 MG Oral Tablet (Buspar) Take 1 Tablet by mouth in the morning and 1 Tablet at noon and 1 Tablet before bedtime. 90 Tablet 5 11/05/2022 4 Discontinu ed(Medicat ion/Dose Changed) Acetaminophen 500 MG Oral Tablet (Tylenol)Indications :Sore throat Take 2 Tablets by mouth every 6 hours as needed for Pain, Moderate. 30 Tablet 1 03/15/2023 4 Discontinu ed(Refill) documented as of this encounter (statuses as of 04/04/2023) Active Problems Problem Noted Date Diagnosed Date [...] as of this encounter (statuses as of 04/04/2023) Resolved Problems Problem Noted Date Diagnosed Date Resolved Date Morbid (severe) obesity due to excess calories 02/16/2023 02/18/2023 Food insecurity 08/16/2022 03/24/2023 Overview: Per [facility] Protocol BMI 40.0-44.9, adult 02/18/2022 [...] as of this encounter (statuses as of 04/04/2023) Immunizations Name Administration Dates Next Due Hepatitis B, 20+ yrs 12/10/2022,06/02/2022 Pneumococcal Conjugate Vacci ne, 20-valent ([id number]) 04/14/2022 Pneumococcal Polysaccharide PPV23 (Pneumovax) 07/28/2020 Seasonal [...] Sign Reading Time Taken Comments Blood Pressure 108/72 04/01/2023 2:38 PM EST Pulse 71 04/01/2023 2:38 PM EST Temperature 36.6 C (97.8 F) 04/01/2023 2:38 PM ES T Respiratory Rate 16 04/01/2023 2:38 PM EST Oxygen Saturation 96% 04/01/2023 2:38 PM EST Inhaled Oxygen Concentration - - Weight 82.2 kg (181 lb 3.2 oz) 04/01/2023 2:38 P M EST Height - - Body Mass Index 34.24 09/29/2022 10:18 AM EDT documented in this encounter Progress Notes * Dylan Ramirez MD - 04/01/2023 2:57 PM EST Images from the original note were not included. History of Present Illness Caren Johnson is a 47 year old female that presents for Emergency Department Follow-Up ([facility] 03/30Chest pain) Post ED visit. Patient wants to discuss results of CT and labs. Anxiety+, depressed mood, poor sleep ( has cancer) Patient reports: while she was driving she did not feel well , had chest pain, left side of the body was hurting, she could not move her legs, had nausea, speech was normal, vision was normal , had numbness in her fingers and feet. All symptoms resolved in ED Labs: High d-dimer, no PE , CT brain stable, CT chest/abd results discussed. For anxiety patient was given Valium Plt 128 Other: Patient reports persistent cough at time while swallowing, cancelled ENT, will reschedule Smoker Physical Exam Vitals: 04/01/23 1438 Temp: 36.6 C (97.8 F) Pulse: 71 Resp: 16 SpO2: 96% BP: 108/72 BP Readings from Last 3 Encounters: 04/01/23 108/72 03/30/23 111/63 03/15/23 102/76 Wt Readings from Last 3 Encounters: 04/01/23 82.2 kg (181 lb 3.2 oz) 03/30/23 83.2 kg (183 lb 6.8 oz) 03/15/23 79.4 kg (175 lb) BMI Readings from Last 3 Encounters: 04/01/23 34.24 kg/m 03/30/23 34.66 kg/m 03/15/23 33.07 kg/m Physical Exam Constitutional: General: She is not in acute distress. Appearance: Normal appearance. HENT: Head: Normocephalic and atraumatic. Right Ear: Tympanic membrane, ear canal and external ear normal. Left Ear: Tympanic membrane, ear canal and external ear normal. Nose: Nose normal. Mouth/Throat: Mouth: Mucous membranes are moist. Pharynx: Oropharynx is clear. Eyes: Conjunctiva/sclera: Conjunctivae normal. Pupils: Pupils are equal, round, and reactive to light. Cardiovascular: Rate and Rhythm: Normal rate and regular rhythm. Pulses: Normal pulses. Pulmonary: Effort: Pulmonary effort is normal. Breath sounds: Normal breath sounds. Abdominal: General: Bowel sounds are normal. There is no distension. Palpations: Abdomen is soft. Tenderness: There is no abdominal tenderness. Musculoskeletal: Cervical back: Neck supple. Right lower leg: No edema. Left lower leg: No edema. Skin: General: Skin is warm and dry. Findings: No rash. Neurological: Mental Status: She is alert and oriented to person, place, and time. Psychiatric: Mood and Affect: Mood is anxious. Speech: Speech normal. Behavior: Behavior normal. Thought Content: Thought content normal. Cognition and Memory: Cognition normal. I have reviewed the following results: None Assessment and Plan 1. Anxiety - hydrOXYzine HCl 10 MG Oral Tablet (Atarax); Take 1 Tablet by mouth every 6 hours as needed for Anxiety. Dispense: 20 Tablet; Refill: 0 (new) - busPIRone HCl 10 MG Oral Tablet (Buspar); Take 1 Tablet by mouth in the morning and 1 Tablet at noon and 1 Tablet before bedtime. Dispense: 90 Tablet; Refill: 1 (Dose increased) 2. Thyroid nodule - US HEAD AND NECK; Future 3. History of atrial dilatation - ECHO, COMPLETE (2D), TRANS-THORACIC; Future 4. RUQ pain - MRI LIVER W WO CONTRAST; Future 5. Abnormal CT scan - MRI LIVER W WO CONTRAST; Future 6. Constipation, unspecified constipation type - Polyethylene Glycol 3350 17 GM/SCOOP Oral Powder (MiraLax); Take 17 g by mouth as needed for Constipation. Dissolve one heaping tablespoon in 8 ounces of water or juice. Dispense: 850 g; Refill: 2 7. Low platelet count (HCC) - CBC WITH WBC DIFFERENTIAL; Future 8. Sore throat - Acetaminophen 500 MG Oral Tablet (Tylenol); Take 2 Tablets by mouth every 6 hours as needed for Pain, Moderate. Dispense: 100 Tablet; Refill: 1 9. Cough, unspecified type - Azithromycin 250 MG Oral Tablet (Zithromax Z-Talib); Take two tablets by mouth on first day, then 1tablet daily until gone Dispense: 6 Tablet; Refill: 0 - predniSONE 20 MG Oral Tablet (Deltasone); Take 2 Tablets by mouth in the morning for 5 days. Dispense: 10 Tablet; Refill: 0 - smoking cessation discussed - follow up with ENT 10. Hypertension goal BP (blood pressure) < 140/90 11. Adjustment disorder with mixed anxiety and depressed mood Wrap-Up As needed, 3 weeks Time: I spent a total of 20-29 minutes (exact time 25 mins) on the date of service in preparation, delivery, and documentation of the care provided to Caren Verónica Johnson excluding any time spent in the performance of separately billed services. documented in this encounter Nursing Notes * Anita Childs LPN - 04/01/2023 2:34 PM EST Chief Complaint Patient presents with Emergency Department Follow-Up [facility] 03/30 Chest pain documented in this encounter Miscellaneous Notes * Addendum Note - Dylan Ramirez MD - 04/04/2023 2:27 PM ESTAddended by: DYLAN RAMIREZ on: 04/04/2023 02:27 PM Modules accepted: Orders documented in this encounter Plan of Treatment Upcoming Encounters Date Type Department Care Team (Late st Contact Info) Description 04/08/2023 8:30 AM EST Telemedicine Pharmacy, [place] [address] [facility] [place] [address] [place], [facility] [address] [place] [address] 04/25/2023 2:00 PM EDT Office Visit [facility] [address] [phone] Dylan Ramirez MD 21 [facility] [place] [address] 04/27/2023 8:45 AM EDT Appointment Radiology, [address] [place] [address] 05/18/2023 11:00 AM EDT Office Visit Otolaryngology, [facility] [place] [address] [address] Sorin Burks PA-C [address] [place] [address] 05/26/2023 1:00 PM EDT Appointment Cardiac Studies, [facility] [address] [place] [address] 06/14/2023 11:20 AM EDT Office Visit Family Practice, [place] [address] [facility] [place] [phone] Carlitos Rain MD 21 [facility] [address] [place] [address] 01/09/2024 10:30 AM EST Appointment Radiology, [place] [address] [address] Pending Results Name Type Priority Associated Diagnoses Date /Time CBC WITH WBC DIFFERENTIAL Lab Routine Low platelet count (HCC) 04/04/2023 1:00 PM EST Scheduled Orders Name Type Priority Associated Diagnoses Orde r Schedule ECHO, COMPLETE (2D), TRANS-THORACIC Echocardiology Routine History of atrial dilatation Expected: 04/01/2023 (Approximate), Expires: 03/31/2024 MRI LIVER W WO CONTRAST Medical Imaging Routine RUQ pain Abnormal CT scan Expected: 04/02/2023, Expires: 04/29/2024 CBC WITH WBC DIFFERENTIAL Lab Routine Low platelet count (HCC) Expected: 04/01/2023 (Approximate), Expires: 04/01/2024 TSH WITH FREE T4 IF INDICATED Lab Routine Thyroid nodule Expected: 04/04/2023 (Approximate), Expires: 04/03/2024 Scheduled Procedures Name Priority Associated Diagnoses Date/Ti me COLONOSCOPY FLEXIBLE PROXIMA L DIAGNOSTIC Recall Screening for colon cancer Health Maintenance Due Date Last Done Comments DISCUSS TOBACCO CESSATION (REFER TO SMARTSET #3005) 1975 COVID-19 Vaccine ( - 2022- season) 2022 Hepatitis B (3 of 3 - 19+ 3-dose series) 02/04/2023 12/10/2022, 06/02/2022 COLONOSCOPY-ANNUAL AGES 18-100 04/08/2023 04/07/2022, 04/07/2022, 12/28/2016 HbA1c 05/13/2023 11/11/2022, 04/2 07/2022, 03/21/2022 Albumin/Creatinine Ratio 06/03/2023 06/02/2022 Diabetic Foot Exam 06/03/2023 06/02/2022 Diabetic Eye Exam 11/23/2023 11/22/2022, 04/07/2022 Mammogram 01/06/2024 01/05/2023, 06/09/2018 Depression Screening 02/17/2024 02/16/2023 GFR 03/30/2024 03/30/2023, 06/2022, 09/29/2022, Additional history exists Lipid Panel 03/21/2027 03/21/2022, 10/2021, 02/19/2019, Additional history exists DTaP,Tdap,and Td [...] Not on filedocumented as of this encounter Results * US HEAD AND NECK (04/04/2023 1:02 PM EST) Anatomical Region Laterality Modality Neck, Head Ultrasound 04/04/2023 1:33 PM EST Impressions 04/04/2023 1:31 PM EST IMPRESSION Enlarged thyroid with subcentimeter nodules. Narrative 04/04/2023 1:31 PM EST EXAM THYROID ULTRASOUND - 04/04/2023 1:02 pm HISTORY Thyroid nodule COMPARISON None TECHNIQUE Real time sonographic imaging of the thyroid was performed. FINDINGS Right lobe measures 5.7 x 2.2 x 2.0 cm, isthmus measures 0.7 cm, and left lobe measures 6.1 x 2.4 x 2.1 cm. Thyroid gland is large in size and is heterogenous in echotexture. There is a 0.7 x 0.6 x 0.7 cm solid and cystic, hypoechoic nodule within right upper lobe. TI-RADS 3. This is below the threshold for follow-up. Smaller similar appearing nodules and colloid cysts are noted. Procedure Note Nathaniel Adler MD - 04/04/2023 EXAM THYROID ULTRASOUND - 04/04/2023 1:02 pm HISTORY Thyroid nodule COMPARISON None TECHNIQUE Real time sonographic imaging of the thyroid was performed. FINDINGS Right lobe measures 5.7 x 2.2 x 2.0 cm, isthmus measures 0.7 cm, and leftlobe measures 6.1 x 2.4 x 2.1 cm. Thyroid gland is large in size and isheterogenous in echotexture. There is a 0.7 x 0.6 x 0.7 cm solid and cystic, hypoechoic nodule withinright upper lobe. TI-RADS 3. This is below the threshold for follow-up.Smaller similar appearing nodules and colloid cysts are noted. IMPRESSION IMPRESSION Enlarged thyroid with subcentimeter nodules. Dylan Ramirez MD RAD ULTRASOU [place] documented in this encounter Visit Diagnoses Diagnosis Anxiety- Primary Anxiety state, unspecified Thyroid nodule Nontoxic uninodular goiter History of atrial dilatation Personal history of other diseases of circulatory system RUQ pain Abdominal pain, right upper quadrant Abnormal CT scan Other nonspecific (abnormal) findings on radiological and other examinations of body structure Constipation, unspecified constipation type Low platelet count (HCC) Sore throat Acute pharyngitis Cough, unspecified type Hypertension goal BP (blood pressure) < 140/90 Unspecified essential hypertension Adjustment disorder with mixed anxiety and depressed mood Thyroid nodule Nontoxic uninodular goiter documented in this encounter Care Teams Advanced Practice Nurse Relationship Specialty Start Date End Date Carlitos Rain MD 21 [facility] [place] [phone] PCP - General Family Medicine 02/18/22 documented as of this encounter
--- OUTSIDE RECORDS SUMMARY | 2023-04-16 10:48 | External Medical Summary | Summary of Care ---
Author Name Unknown Organization [facility] Address [address] [place] [address] Phone [phone] Care Team Providers Care Online Advertising Director Name Role Phone Carlitos Rain MD Primary Care Provider Reason for Visit * Reason Comments Outpatient Testing Encounter Details Date Type Department Care Team ([facility] st Contact Info) Description 04/04/2023 1:20 PM EST Laboratory Laboratory, [place] [address] [place] [phone] [facility] [address] [place] [address] Low platelet count (HCC) Allergies Active Allergy Reactions Criticality Noted Date [...] Strip 2 04/29/2022 Active OneTouch Delica Plus [id number]: Type 2 diabetes mellitus with hemoglobin A1c [...] hemoglobin A1c goal of less than 7.0% ([facility]) Inject 1.5 mg under the skin [...] Active hydrOXYzine HCl 10 MG Oral Tablet (Atarax)Indications:A nxiety Take 1 Tablet by mouth every 6 [...] 04/01/2023 Active predniSONE 20 MG Oral Tablet (Deltasone)Indication s:Cough, unspecified type Take 2 Tablets by mouth in the morning for 5 days. 10 Tablet 0 04/01/2023 Active documented as of this encounter (statuses [...] 02/18/2023 Food insecurity 08/16/2022 03/24/2023 Overview: Per [facility] Protocol BMI 40.0-44.9, adult 02/18/2022 [...] yrs 12/10/2022,06/02/2022 Pneumococcal Conjugate Vacci ne, 20-valent ([id number]) 04/14/2022 Pneumococcal Polysaccharide PPV23 (Pneumovax) 07/28/2020 Seasonal [...] Description 04/08/2023 8:30 AM EST Telemedicine Pharmacy, [place] [address] [place] [address] [facility] [address] [place] [address] 04/25/2023 2:00 PM EDT Office Visit [facility] [address] [place] [phone] Caitlin L[facility]pez MD [facility] [address] 04/27/2023 8:45 AM EDT Appointment Radiology, [address] [place] [address] 05/18/2023 11:00 AM EDT Office Visit Otolaryngology, [facility] [address] [place] [place] [address] Sorin Burks PA-C [address] [facility] [address] 05/26/2023 1:00 PM EDT Appointment Cardiac Studies, [address] [place] [address] 06/14/2023 11:20 AM EDT Office Visit [facility] [address] [facility] [place] [phone] Carlitos Rain MD [facility] [address] 01/09/2024 10:30 AM EST Appointment Radiology, [place] [address] [place] [phone] Pending Results Name Type Priority Associated Diagnoses Date /Time CBC WITH WBC DIFFERENTIAL Lab Routine Low platelet count (HCC) 04/04/2023 1:00 PM EST CBC Lab Routine Low platelet count ([facility]) 04/04/2023 1:00 PM EST DIFFERENTIAL, AUTOMATED Lab Routine Low platelet count ([facility]) 04/04/2023 1:00 PM EST Scheduled Procedures Name Priority Associated Diagnoses Date/Ti me COLONOSCOPY FLEXIBLE PROXIMA L DIAGNOSTIC Recall Screening for colon cancer Health Maintenance Due Date Last Done Comments DISCUSS TOBACCO CESSATION (REFER TO SMARTSET #5279) 1975 COVID-19 Vaccine (2022- season) 2022 Hepatitis [...] Not on filedocumented as of this encounter Visit Diagnoses Diagnosis Low platelet count (HCC) documented in this encounter Care Teams Online Advertising Director Relationship Specialty Start Date End Date Carlitos Rain MD 21 [facility] [place] [address] PCP - General Family Medicine 02/18/22 documented as of this encounter
--- OUTSIDE RECORDS SUMMARY | 2023-04-16 10:48 | External Medical Summary | Summary of Care ---
Author Name Unknown Organization [facility] Address [address] [place] [address] Phone [phone] Care Team Providers Care Light Out Examiner Name Role Phone Cariltos Rain MD Primary Care Provider Encounter Details Date Type Department Care Team (Late st Contact Info) Description 04/05/2023 Telephone [facility] [place] [address] [facility] [place] [address] Carlitos Rain MD [address] [facility] [place] [address] Allergies Active Allergy Reactions Criticality Noted Date Comments Pollen 02/10/2022 documented as of this encounter (statuses as of 04/06/2023) Medications Medication Sig Dispensed Refills Start Date End Date Status cetirizine (ZYRTEC) 10 MG TabletIndications:Se asonal allergies Take 1 Tab by mouth daily. 90 Tab 3 06/09/2018 Active Montelukast Sodium 10 MG Oral Tablet Take by mouth daily. 0 01/07/2021 Active Alcohol Prep Pads 70 % PadIndications:Type 2 diabetes mellitus with hemoglobin A1c goal of less than 7.0% ([facility]) Use for injections. Injects trulicity once weekly 100 Each 1 03/26/2022 Active OneTouch Verio In Vitro Strip (Glucose Blood)Indications:Ty pe 2 diabetes mellitus with hemoglobin A1c goal of less than 8.0% ([facility]) Use up to 4 times a day E11.9 400 Strip 2 04/29/2022 Active OneTouch Delica Plus [id number] :Type 2 diabetes mellitus with hemoglobin A1c [...] Pain, Severe. 60 Tablet 0 03/25/2023 Active busPIRone HCl 10 MG Oral Tablet [...] 5 days. 10 Tablet 0 04/01/2023 Active hydrOXYzine HCl 25 MG Oral TabletIndications:An xiety Take 1 Tablet by mouth every 6 hours as needed for Anxiety. 40 Tablet 2 04/05/2023 Active hydrOXYzine HCl 10 MG Oral Tablet (Atarax)Indications: Anxiety Take 1 Tablet by mouth every 6 hours as needed for Anxiety. 20 Tablet 0 04/01/2023 4 Discontinu ed(Medicat ion/Dose Changed) documented as of this encounter (statuses as of 04/06/2023) Active Problems Problem Noted Date Diagnosed Date [...] as of this encounter (statuses as of 04/06/2023) Resolved Problems Problem Noted Date Diagnosed Date Resolved Date Morbid (severe) obesity due to excess calories 02/16/2023 02/18/2023 Food insecurity 08/16/2022 03/24/2023 Overview: Per [facility] Protocol BMI 40.0-44.9, adult 02/18/2022 [...] as of this encounter (statuses as of 04/06/2023) Immunizations Name Administration Dates Next Due Hepatitis B, 20+ yrs 12/10/2022,06/02/2022 Pneumococcal Conjugate Vacci ne, 20-valent ([id number]) 04/14/2022 Pneumococcal Polysaccharide PPV23 (Pneumovax) 07/28/2020 Seasonal [...] on file documented as of this encounter Miscellaneous Notes * Telephone Encounter - Caitlin López MD - 04/05/2023 4:56 PM EST Spoke with the patient, result discussed, all questions answered Anxiety: Atarax helps some, no side effects, dose increased. Continue Buspar. Follow up 04/25/23 asscheduled. * Telephone Encounter - Shruthi Godinez RN - 04/05/2023 2:20 PM EST Call back from pt States she did not sleep at all last night due to anxiety Found out her dad has history of thyroid cancer Taking Buspar as prescribed, has been taking hydroxyzine Q6H, does not feel they are helping Asking for medication change for anxiety Dr. López, Any recommendations regarding anxiety? * Telephone Encounter - Shruthi Godinez RN - 04/05/2023 2:11 PM EST Multiple voicemails received from pt today regarding test results Dr. López, Could you please review and interpret pt's CBC and ultrasound from 04/04? * Telephone Encounter - Hailee Aldana OSA - 04/05/2023 2:05 PM EST Patient calling in to check on the status of previous message. Patient Called within 48 hour timeframe. Reminded patient of 48 hour turn-around time. Patient states she is having a very difficult time processing lab results and would like a call back. * Telephone Encounter - Shy Salinas OSA - 04/05/2023 8:02 AM EST Pt called in to request a call from a nurse, completed one lab yesterday, 04-04-23, completing another lab today, pt was alerted of 24/48 hr turn around time, pt was very anxious and states she wants to talk to a nurse about labs and medications. [phone] documented in this encounter Plan of Treatment Upcoming Encounters Date Type Department Care Team (Late st Contact Info) Description 04/08/2023 8:30 AM EST Telemedicine Pharmacy, [place] [address] [address] [facility] [address] [address] 04/25/2023 2:00 PM EDT Office Visit Family [facility], [place] [address] [phone] Caitlin López MD [address] [address] 04/27/2023 8:45 AM EDT Appointment Radiology, [address] [place] [address] 05/18/2023 11:00 AM EDT Office Visit Otolaryngology, [place]elsie S[facility]chez [address] [address] Sorin Burks PA-C [address] [address] 05/26/2023 1:00 PM EDT Appointment Cardiac Studies, [facility] [address] [place] [address] 06/14/2023 11:20 AM EDT Office Visit Family Practice, [place] [address] [phone] Carlitos Rain MD [address] [facility] [facility] [place] [address] 01/09/2024 10:30 AM EST Appointment Radiology, [place] [address] Scheduled Procedures Name Priority Associated Diagnoses Date/Ti me COLONOSCOPY FLEXIBLE PROXIMA L DIAGNOSTIC Recall Screening for colon cancer Health Maintenance Due Date Last Done Comments DISCUSS TOBACCO CESSATION (REFER TO SMARTSET #6510) 1975 COVID-19 Vaccine (2022- season) 2022 Hepatitis [...] Additional history exists Lipid Panel 03/21/2027 03/21/2022, 0 10/2021, 02/19/2019, Additional history exists DTaP,Tdap,and Td [...] as of this encounter Visit Diagnoses Diagnosis Anxiety- Primary Anxiety state, unspecified documented in this encounter Care Teams Light Out Examiner Relationship Specialty Start Date End Date Carlitos Rain MD 21 [facility] [place] [phone] PCP - General Family Medicine 02/18/22 documented as of this encounter
--- OUTSIDE RECORDS SUMMARY | 2023-04-16 10:48 | External Medical Summary | Summary of Care ---
Author Name Unknown Organization [facility] Address [address] [place] [address] Phone [phone] Care Team Providers Care Financial Recording Clerk Name Role Phone Carlitos Rain MD Primary Care Provider Encounter Details Date Type Department Care Team (Latest Contact Info) Description 04/04/2023 12:15 PM EST - 04/04/2023 11:59 PM EST Hospital Encounter Radiology, [place] [address] [place] [address] Arrived Discharge Disposition: Home - Self Care Allergies Active Allergy Reactions Criticality Noted Date Comments Pollen 02/10/2022 documented as of this encounter (statuses as of 04/05/2023) Medications Medication Sig Dispensed Refills Start Date End Date Status cetirizine (ZYRTEC) 10 MG TabletIndications:Sea huang allergies Take 1 Tab by mouth daily. 90 Tab 3 06/09/2018 Active Montelukast Sodium 10 MG Oral Tablet Take by mouth daily. 0 01/07/2021 Active Alcohol Prep Pads 70 % PadIndications:Type 2 diabetes mellitus with hemoglobin A1c goal of less than 7.0% ([facility]) Use for injections. Injects trulicity once weekly 100 Each 1 03/26/2022 Active OneTouch Verio In Vitro Strip (Glucose Blood)Indications:Typ e 2 diabetes mellitus with hemoglobin A1c goal of less than 8.0% ([facility]) Use up to 4 times a day E11.9 400 Strip 2 04/29/2022 Active OneTouch Delica Plus [id number]: Type 2 diabetes mellitus with hemoglobin A1c [...] Active Azithromycin 250 MG Oral Tablet (Zithromax Z-Talbi)Indications:Cou gh, unspecified type Take two tablets by mouth on first day, then 1 tablet daily until gone 6 Tablet 0 04/01/2023 Active predniSONE 20 MG Oral Tablet (Deltasone)Indication s:Cough, unspecified type Take 2 Tablets by mouth in the morning for 5 days. 10 Tablet 0 04/01/2023 Active documented as of this encounter (statuses as of 04/05/2023) Active Problems Problem Noted Date Diagnosed Date [...] as of this encounter (statuses as of 04/05/2023) Resolved Problems Problem Noted Date Diagnosed Date [...] as of this encounter (statuses as of 04/05/2023) Immunizations Name Administration Dates Next Due Hepatitis B, 20+ yrs 12/10/2022,06/02/2022 Pneumococcal Conjugate Vacci ne, 20-valent ([id number]) 04/14/2022 Pneumococcal Polysaccharide PPV23 (Pneumovax) 07/28/2020 Seasonal [...] as of this encounter Miscellaneous Notes * Result Encounter Note - Caitlin López MD - 04/04/2023 12:30 PM EST Will discuss at the visit documented in this encounter Plan of Treatment Upcoming Encounters Date Type Department Care Team (Late st Contact Info) Description 04/05/2023 3:30 PM EST Laboratory Laboratory, [place] 21 [facility] [place] [phone] [place], [facility] 21 [facility] [place] [address] 04/08/2023 8:30 AM EST Telemedicine Pharmacy, [place] [address] [place] [address] [facility] [address] [place] [address] 04/25/2023 2:00 PM EDT Office Visit Family [facility], [place] [address] [phone] Caitlin López MD 21 [facility] [place] [address] 04/27/2023 8:45 AM EDT Appointment Radiology, [address] [place] [address] 05/18/2023 11:00 AM EDT Office Visit Otol[place]ology, [place] [address] [address] Sorin Burks PA-C [address] [address] 05/26/2023 1:00 PM EDT Appointment Cardiac Studies, [facility] [address] [place] [address] 06/14/2023 11:20 AM EDT Office Visit Family Practice, [place] [address] [phone] Carlitos Rain MD [address] [facility] [place] [address] 01/09/2024 10:30 AM EST Appointment Radiology, [place] [address] [address] Scheduled Procedures Name Priority Associated Diagnoses Date/Ti me COLONOSCOPY FLEXIBLE PROXIMA L DIAGNOSTIC Recall Screening for colon cancer Health Maintenance Due Date Last Done Comments DISCUSS TOBACCO CESSATION (REFER TO SMARTSET #3291) 1975 COVID-19 Vaccine (2022- season) 2022 Hepatitis [...] or Tdap) 07/28/2030 07/28/2020 Colonoscopy Discontinued 04/07/2022, 0302/2022, 12/28/2016 Colorectal Cancer Screening Discontinued Pneumococcal Vaccine: [...] Procedure Name Priority Date/Time Associated Diagnosis Comments US HEAD AND NECK Routine 04/04/2023 1:02 PM EST Thyroid nodule documented in this encounter Results * US HEAD AND [...] IMPRESSION IMPRESSION Enlarged thyroid with subcentimeter nodules. Caitlin López MD RAD ULTRASOU ND documented in this encounter Visit Diagnoses Diagnosis Thyroid nodule Nontoxic uninodular goiter documented in this encounter Care Teams Financial Recording Clerk Relationship Specialty Start Date End Date Carlitos Rain MD 21 [facility] [place] [phone] PCP - General Family Medicine 02/18/22 documented as of this encounter
--- OUTSIDE RECORDS SUMMARY | 2023-04-16 10:48 | External Medical Summary | Summary of Care ---
Author Name Unknown Organization [facility] Address [address] [place] [address] Phone [phone] Care Team Providers Care Splitter Operator Name Role Phone Carlitos Rain MD Primary Care Provider Reason for Visit * Reason Comments Outpatient Testing Encounter Details Date Type Department Care Team (Late st Contact Info) Description 04/05/2023 3:30 PM EST Laboratory Laboratory, [place] [address] [place] [phone] [facility] 21 [place] [address] Thyroid nodule Allergies Active Allergy Reactions Criticality Noted Date [...] hemoglobin A1c goal of less than 7.0% ([facility]) Use for injections. Injects trulicity once weekly 100 Each 1 03/26/2022 Active OneTouch Verio In Vitro Strip (Glucose Blood)Indications:Typ e 2 diabetes mellitus with hemoglobin A1c goal of less than 8.0% ([facility]CC) Use up to 4 times a day E11.9 400 Strip 2 04/29/2022 Active OneTouch Delica Plus [id number]: Type 2 diabetes mellitus with hemoglobin A1c [...] hemoglobin A1c goal of less than 7.0% ([facility]) Inject 1.5 mg under the skin once [...] 108 (90 Base) MCG/ACT Inhalation Aerosol SolutionIndications:W jazmin Inhale 2 Puffs by mouth every 4 [...] 02/18/2023 Food insecurity 08/16/2022 03/24/2023 Overview: Per [facility] Protocol BMI 40.0-44.9, adult 02/18/2022 [...] yrs 12/10/2022,06/02/2022 Pneumococcal Conjugate Vacci ne, 20-valent ([id number]) 04/14/2022 Pneumococcal Polysaccharide PPV23 (Pneumovax) 07/28/2020 Seasonal [...] Description 04/08/2023 8:30 AM EST Telemedicine Pharmacy, [place] [address] [address] [facility] [address] [address] 04/25/2023 2:00 PM EDT Office Visit [facility] [address] [phone] Caitlin Ló[facility] [address] 04/27/2023 8:45 AM EDT Appointment Radiology, [address] [place] [address] 05/18/2023 11:00 AM EDT Office Visit Otolaryngology, [place] [address] [address] Sorin Burks PA-C [address] [place] [address] 05/26/2023 1:00 PM EDT Appointment Cardiac Studies, [address] [place] [address] 06/14/2023 11:20 AM EDT Office Visit [facility] [address] [phone] Carlitos Rain MD 21 [facility] [place] [address] 01/09/2024 10:30 AM EST Appointment Radiology, [place]elsie Roby [place] [address] Pending Results Name Type Priority Associated Diagnoses Date /Time TSH WITH FREE T4 IF INDICATED Lab Routine Thyroid nodule 04/05/2023 2:45 PM EST Scheduled Procedures Name Priority Associated Diagnoses Date/Ti me COLONOSCOPY FLEXIBLE PROXIMA L DIAGNOSTIC Recall Screening for colon cancer Health Maintenance Due Date Last Done Comments DISCUSS TOBACCO CESSATION (REFER TO SMARTSET #5651) 1975 COVID-19 Vaccine (2022- season) 2022 Hepatitis [...] as of this encounter Visit Diagnoses Diagnosis Thyroid nodule Nontoxic uninodular goiter documented in this encounter Care Teams Splitter Operator Relationship Specialty Start Date End Date Carlitos Rain MD [address] [address] PCP - General Family Medicine 02/18/22 documented as of this encounter
--- OUTSIDE RECORDS SUMMARY | 2023-04-16 10:48 | External Medical Summary ---
Author Name Unknown Address Unknown Organization [facility] [address] [place] [address] Laboratory Report Ordering Provider Test Date Status ILLY MIMS 04/14/2023 12:49:27 Final Observation Date Value Abnormality Reference (Units ) Status Lipase 04/14/2023 12:49:27 20 13-60 (U/L ) Final Performing Location [facility] [address] [place] [place] [address]
--- OUTSIDE RECORDS SUMMARY | 2023-04-16 10:48 | External Medical Summary | Summary of Care ---
Author Name Unknown Organization [facility] Address [address] [place] [address] Phone [phone] Care Team Providers Care [employer] Maintenance Worker Name Role Phone Carlitos Rain MD Primary Care Provider Encounter Details Date Type Department Care Team (Late st Contact Info) Description 04/01/2023 Telephone [facility] [place] [address] Caitlin López MD [facility] [address] Allergies Active Allergy Reactions Criticality Noted [...] hemoglobin A1c goal of less than 7.0% ([facility]) Use for injections. Injects trulicity once weekly 100 Each 1 03/26/2022 Active OneTouch Verio In Vitro Strip (Glucose Blood)Indications:Typ e 2 diabetes mellitus with hemoglobin A1c goal of less than 8.0% ([facility]CC) Use up to 4 times a day E11.9 400 Strip 2 04/29/2022 Active OneTouch Delica Plus [id number]: Type 2 diabetes mellitus with hemoglobin A1c [...] yrs 12/10/2022,06/02/2022 Pneumococcal Conjugate Vacci ne, 20-valent ([id number]) 04/14/2022 Pneumococcal Polysaccharide PPV23 (Pneumovax) 07/28/2020 Seasonal [...] encounter Miscellaneous Notes * Telephone Encounter - Kalee Joyce OSA - 04/04/2023 11:21 AM EST Per chart review, pt is scheduled for a Tuesday. Pt needs to be scheduled for a Tuesday or Tuesday, as previously documented. If pt wishes to address [id number]-LYP issues & trouble swallowing, this could be done at one appt on a Tuesday or Tuesday. Please assist. * Telephone Encounter - Kalee Joyce OSA - 04/04/2023 8:18 AM EST LM for pt to please return call. Will offer to schedule on a Tuesday or Tuesday as audiology is alsoavailable on these days. * Telephone Encounter - Daniel Rai OSA - 04/01/2023 3:37 PM EST Please assist in scheduling pt with ENT with Audio before. documented in this encounter Plan of Treatment Upcoming Encounters Date Type Department Care Team (Late st Contact Info) Description 04/04/2023 12:30 PM EST Appointment Radiology, [place] [address] 04/08/2023 8:30 AM EST Telemedicine Pharmacy, [place] [address] [facility] [address] [address] 04/25/2023 2:00 PM EDT Office Visit [facility] [place] [facility] [phone] Caitlin López MD 21 [place] [address] 04/27/2023 8:45 AM EDT [address]ment [address], [address] [address] 05/18/2023 11:00 AM EDT Office Visit Otolaryngology, [facility] [place] [address] [place] [address] Sorin Burks PA-C [address] [place] [address] 05/26/2023 1:00 PM EDT Appointment Cardiac Studies, [address] [address] 06/14/2023 11:20 AM EDT Office Visit [facility] 21 [place] [phone] Carlitos Rain MD 21 [facility] [place] [address] 01/09/2024 10:30 AM EST [facility] [address] [facility] [address] Scheduled Procedures Name Priority Associated Diagnoses Date/Ti me COLONOSCOPY FLEXIBLE PROXIMA L DIAGNOSTIC Recall Screening for colon cancer Health Maintenance Due Date Last Done Comments DISCUSS TOBACCO CESSATION (REFER TO SMARTSET #9796) 1975 COVID-19 Vaccine ( - 2022- season) [...] filedocumented as of this encounter Care Teams [employer] Maintenance Worker Relationship Specialty Start Date End Date Carlitos Rain MD [address] [phone] PCP - General Family Medicine 02/18/22 documented as of this encounter
--- OUTSIDE RECORDS SUMMARY | 2023-04-16 10:48 | External Medical Summary ---
Author Name Unknown Address Unknown Organization K[facility] [address] [place] [address] Laboratory Report Ordering Provider Test Date Status LILY MIMS 04/14/2023 12:22:49 Final Observation Date Value Abnormality Reference (Units ) Status Color of Urine by Auto 04/14/2023 12:22:49 Yellow Light Yellow, Yellow, Dark Yellow Final Clarity, Urine 04/14/2023 12:22:49 Clear Clear Final Glucose [Mass/volume] in Urine by Automated test strip 04/14/2023 12:22:49 Negative Negative (mg/dL) Final Bilirubin.total [Presence] in Urine by Automated test strip 04/14/2023 12:22:49 Negative Negative Final Ketones [Mass/volume] in Urine by Automated test strip 04/14/2023 12:22:49 Negative Negative (mg/dL) Final Specific gravity, Urine 04/14/2023 12:22:49 1.004 1.003-1.030 Final Hemoglobin [Presence] in Urine by Automated test strip 04/14/2023 12:22:49 Negative Negative Final pH, Urine 04/14/2023 12:22:49 8.0 Above high normal 5.0-7.5 (Units) Final Protein [Mass/volume] in Urine by Automated test strip 04/14/2023 12:22:49 Negative Negative (mg/dL) Final Urobilinogen [Mass/volume] in Urine by Automated test strip 04/14/2023 12:22:49 1.0 0.2, 1.0 (mg/dL) Final Nitrite [Presence] in Urine by Automated test strip 04/14/2023 12:22:49 Negative Negative Final Leukocyte esterase [Presence] in Urine by Automated test strip 04/14/2023 12:22:49 Negative Negative Final Annotation Comment 04/14/2023 12:22:49 Final Screen negative - Microscopi c not performed. Performing Location [facility] - [address] [place] [address]
--- OUTSIDE RECORDS SUMMARY | 2023-04-16 10:48 | External Medical Summary | Summary of Care ---
Author Name Unknown Organization [facility] Address [address] [place] [address] Phone [phone] Care Team Providers Care Truck Packer Name Role Phone Carlitos Rain MD Primary Care Provider Reason for Visit * Reason Onset Date Comments Medication Refill 04/08/2023 Encounter Details Date Type Department Care Team (Late st Contact Info) Description 04/08/2023 Refill [facility] [address] [place] [phone] Carlitos Rain MD [address] [place] [address] Acute exacerbation of chronic low back pain; Other intervertebral disc displacement, lumbosacral region Allergies Active Allergy Reactions Criticality Noted Date Comments Pollen 02/10/2022 documented as of this encounter (statuses as of 04/11/2023) Medications Medication Sig Dispensed Refills Start Date End Date Status cetirizine (ZYRTEC) 10 MG TabletIndications:Se asonal allergies Take 1 Tab by mouth daily. 90 Tab 3 06/09/2018 Active Montelukast Sodium 10 MG Oral Tablet Take by mouth daily. 0 01/07/2021 Active Alcohol Prep Pads 70 % PadIndications:Type 2 diabetes mellitus with hemoglobin A1c goal of less than 7.0% ([facility]) Use for injections. Injects trulicity once weekly 100 Each 1 03/26/2022 Active OneTouch Verio In Vitro Strip (Glucose Blood)Indications:Ty pe 2 diabetes mellitus with hemoglobin A1c goal of less than 8.0% (HCC) Use up to 4 times a day E11.9 400 Strip 2 04/29/2022 Active OneTouch Delica Plus [id number] :Type 2 diabetes mellitus with hemoglobin A1c [...] for Pain, Severe. 60 Tablet 0 03/25/2023 4 Discontinu ed(Refill) documented as of this encounter (statuses as of 04/11/2023) Active Problems Problem Noted Date Diagnosed Date [...] as of this encounter (statuses as of 04/11/2023) Resolved Problems Problem Noted Date Diagnosed Date [...] as of this encounter (statuses as of 04/11/2023) Immunizations Name Administration Dates Next Due Hepatitis B, 20+ yrs 12/10/2022,06/02/2022 Pneumococcal Conjugate Vacci ne, 20-valent (Virmsfx15) 04/14/2022 Pneumococcal Polysaccharide PPV23 (Pneumovax) 07/28/2020 Seasonal [...] encounter Miscellaneous Notes * Telephone Encounter - Thomas Robledo PA-C - 04/11/2023 10:12 AM EST Refused Prescriptions: Disp Refills oxyCODONE HCl 5 MG Oral Tablet (Oxy IR) 60 Tab*0 Sig: Take 1 Tablet by mouth every 6 hours as needed for Pain, Severe. Refused By: THOMAS ROBLEDO Reason for Refusal: Duplicate Request * Telephone Encounter - Moreno Cerrato [facility] - 04/08/2023 4:42 PM ESTPending Prescriptions: Disp Refills oxyCODONE HCl 5 MG Oral Tablet (Oxy IR) 60 Tab*0 Sig: Take 1 Tablet by mouth every 6 hours as needed for Pain, Severe. * Telephone Encounter - Moreno Cerrato [facility] - 04/08/2023 4:42 PM EST I have reviewed the patients controlled substance dispensing history in the Prescription Drug Monitoring Program in compliance with the [facility] regulations before prescribing a controlled substance. PDMP checked on 04/08/2023. Pending Prescriptions: Disp Refills oxyCODONE HCl 5 MG Oral Tablet (Oxy IR) 60 Tab*0 Sig: Take 1 Tablet by mouth every 6 hours as needed for Pain, Severe. Last Visit: 04/01/2023 (in office), Visit date not found (telemedicine) Next Visit: 04/25/2023 Date medication was last filled: 03-25-23 Date medication is due for refill: 04-08-23 Pharmacy: [facility] [place] Is this request for a controlled substance? Yes and Urine Drug Screen was completed Toxicology results: Results for orders placed or performed in visit on 03/15/23 PAIN MANAGEMENT DRUG PANEL, URINE W/ INTERPRETATION Result Value Compliance Interpretation Based on the medication information provided: The positive oxycodone screening result is CONSISTENT with oxycodone use. Confirmatory testing is available upon request. Amphetamines Screen, U Negative Benzodiazepines Screen, U Negative Cannabinoids Screen, U Negative Cocaine Metabolite Screen, U Negative Fentanyl Screen, U Negative Hydrocodone Screen, U Negative Methadone Metabolite Screen, U Negative Morphine/Codeine Screen, U Negative Oxycodone Screen, U Positive (A) Valid Interpretation Normal Creatinine, U 138 Narrative Cutoff Concentrations: Drug Level Amphetamines 500 ng/mL Benzodiazepines 100 ng/mL Cannabinoids 50 ng/mL Cocaine Metabolite 150 ng/mL Fentanyl 1 ng/mL Hydrocodone / Hydromorphone 300 ng/mL Methadone Metabolite 100 ng/mL Morphine / Codeine 300 ng/mL Oxycodone / Oxymorphone 100 ng/mL Screening results are presumptive and can only be used for medical purposes. Confirmatory testing is available upon request. Please approve if appropriate. Thanks, Jesse Clifford.Ph. Clinical Pharmacist [facility] [phone] ext [phone] 04/08/2023,4:42 PM * Telephone Encounter - Shirlene Tyler CPhT - 04/08/2023 4:00 PM EST Pt is asking for high priority because she is out of the medication. Did you pend patient's preferred pharmacy and medication before forwarding?yes Pharmacy: [facility] [place] Pending Prescriptions: Disp Refills oxyCODONE HCl 5 MG Oral Tablet (Oxy IR) 60 Tab*0 Sig: Take 1 Tablet by mouth every 6 hours as needed for Pain, Severe. Last Visit: 04/01/2023 (in office), Visit date not found (telemedicine) Next Visit: 04/25/2023 If no future appointments scheduled, and last appointment is greater than a year ago, please schedule patient for a follow-up appointment Last date the medication was ordered: 03/25/23 Is this request for a controlled substance?Yes, What was the last refill date 03/25/23 w/ quantity 60 and dosage 5 MG and Urine Drug Screen was completed Urine Drug Screen: Results for orders placed or performed in visit on 03/15/23 PAIN MANAGEMENT DRUG PANEL, URINE W/ INTERPRETATION Result Value Compliance Interpretation Based on the medication information provided: The positive oxycodone screening result is CONSISTENT with oxycodone use. Confirmatory testing is available upon request. Amphetamines Screen, U Negative Benzodiazepines Screen, U Negative Cannabinoids Screen, U Negative Cocaine Metabolite Screen, U Negative Fentanyl Screen, U Negative Hydrocodone Screen, U Negative Methadone Metabolite Screen, U Negative Morphine/Codeine Screen, U Negative Oxycodone Screen, U Positive (A) Valid Interpretation Normal Creatinine, U 138 Narrative Cutoff Concentrations: Drug Level Amphetamines 500 ng/mL Benzodiazepines 100 ng/mL Cannabinoids 50 ng/mL Cocaine Metabolite 150 ng/mL Fentanyl 1 ng/mL Hydrocodone / Hydromorphone 300 ng/mL Methadone Metabolite 100 ng/mL Morphine / Codeine 300 ng/mL Oxycodone / Oxymorphone 100 ng/mL Screening results are presumptive and can only be used for medical purposes. Confirmatory testing is available upon request. Patient Phone Numbers Labs: Lab Results Component Value Date/Time CREAT 0.9 03/30/2023 06:11 PM CREAT 0.8 04/16/2022 12:00 AM CREAT 0.9 01/28/2019 02:24 PM POTASSIUM 5.1 03/30/2023 06:11 PM POTASSIUM 3.0 (A) 04/16/2022 12:00 AM POTASSIUM 3.9 01/28/2019 02:24 PM TSH 2.72 04/05/2023 02:45 PM LDLCALC 43 03/21/2022 06:01 AM LDLCALC 120 06/14/2018 09:08 AM ALT 14 09/29/2022 10:53 AM ALT 16 01/28/2019 02:24 PM HGBA1C 5.0 11/11/2022 02:17 PM HGBA1C 6.0 03/21/2022 06:01 AM documented in this encounter Plan of Treatment Upcoming Encounters Date Type Department Care Team (Late st Contact Info) Description 04/25/2023 2:00 PM EDT Office Visit [facility] [address] [place] [phone] Caitlin López MD [facility] [place] [address] 04/27/2023 8:45 AM EDT Appointment Radiology, [address] [place] [address] 05/06/2023 9:00 AM EDT Telemedicine Pharmacy, [place] [address] [place] [address] [address] [place], [facility] [address] [place] [address] 05/18/2023 11:00 AM EDT Office Visit Otolaryngology, [place] [address] [place] [address] [place] [address] Sorin Burks PA-C [address] [address] 05/26/2023 1:00 PM EDT Appointment Cardiac Studies, [address] [place] [address] 06/14/2023 11:20 AM EDT Office Visit [facility] [address] [place] [address] [phone] Carlitos Rain MD 21 [facility] [place] [address] 01/09/2024 10:30 AM EST Appointment Radiology, [place] [address] Scheduled Procedures Name Priority Associated Diagnoses Date/Ti me COLONOSCOPY FLEXIBLE PROXIMA L DIAGNOSTIC Recall Screening for colon cancer Health Maintenance Due Date Last Done Comments DISCUSS TOBACCO CESSATION (REFER TO SMARTSET #1649) 1975 COVID-19 Vaccine (2022- season) 2022 Hepatitis [...] as of this encounter Visit Diagnoses Diagnosis Acute exacerbation of chronic low back pain Lumbago Other intervertebral disc displacement, lumbosacral region documented in this encounter Care Teams Truck Packer Relationship Specialty Start Date End Date Carlitos Rain MD [address] [place] [address] PCP - General Family Medicine 02/18/22 documented as of this encounter
--- OUTSIDE RECORDS SUMMARY | 2023-04-16 10:48 | External Medical Summary | Summary of Care ---
Author Name Unknown Organization [facility] Address [address] [place] [address] Phone [phone] Care Team Providers Care Screen Cutter And Trimmer Name Role Phone Carlitos Rain MD Primary Care Provider Encounter Details Date Type Department Care Team (Late st Contact Info) Description 04/01/2023 Telephone [facility] [place] [phone] Caitlin López MD [facility] [place] [id number] Allergies Active Allergy Reactions Criticality Noted [...] goal of less than 7.0% ([facility]) Use for injections. Injects trulicity once weekly 100 Each 1 03/26/2022 Active OneTouch Verio In Vitro Strip (Glucose Blood)Indications:Typ e 2 diabetes mellitus with hemoglobin A1c goal of less than 8.0% (HCC) Use up to 4 times a day E11.9 400 Strip 2 04/29/2022 Active OneTouch Delica Plus [id number]: Type 2 diabetes mellitus with hemoglobin A1c [...] yrs 12/10/2022,06/02/2022 Pneumococcal Conjugate Vacci ne, 20-valent ([id number]) 04/14/2022 Pneumococcal Polysaccharide PPV23 (Pneumovax) 07/28/2020 Seasonal [...] a Tuesday or Tuesday, as previously documented. Please assist. * Telephone Encounter - Kalee [...] 12:30 PM EST Appointment Radiology, [place] [address] 04/08/2023 8:30 AM EST [place], [place] [address] [facility] [place] [address] 04/25/2023 2:00 PM EDT Office Visit [facility] [place] [phone] Ciatlin López MD 21 [facility] [place] [address] 04/27/2023 8:45 AM EDT Appointment [address], [address] [address] 05/18/2023 11:00 AM EDT Office Visit Otolaryngology, [place] [address] [address] Sorin Burks PA-C [address] [place] [address] 05/26/2023 1:00 PM EDT Appointment Cardiac Studies, [address] [place] [address] 06/14/2023 11:20 AM EDT Office Visit [facility] [address] [phone] Carlitos Rain MD 21 [facility] [place] [address] 01/09/2024 10:30 AM EST Appointment Nataly [place] 21 [facility] [place] [address] Scheduled Procedures Name Priority Associated Diagnoses Date/Ti me COLONOSCOPY FLEXIBLE PROXIMA L DIAGNOSTIC Recall Screening for colon cancer Health Maintenance Due Date Last Done Comments DISCUSS TOBACCO CESSATION (REFER TO SMARTSET #9773) 1975 COVID-19 Vaccine (2022- season) 2022 Hepatitis [...] filedocumented as of this encounter Care Teams Screen Cutter And Trimmer Relationship Specialty Start Date End Date Carlitos Rain MD [address] [place] [address] PCP - General Family Medicine 02/18/22 documented as of this encounter
--- OUTSIDE RECORDS SUMMARY | 2023-04-16 10:48 | External Medical Summary | Summary of Care ---
Author Name Unknown Organization [facility] Address [address] [facility] [address] Phone [phone] Care Team Providers Care Test Man Name Role Phone Carlitos Rain MD Primary Care Provider Encounter Details Date Type Department Care Team (Late st Contact Info) Description 04/04/2023 Orders Only PATIENT PORTAL DO NOT DELETE THIS DEPT USED BY [place] [address] Allergies Active Allergy Reactions Criticality Noted Date [...] Strip 2 04/29/2022 Active OneTouch Delica Plus [id number]: Type 2 diabetes mellitus with hemoglobin A1c goal of less than 8.0% ([facility]) Up to 4 times a day E11.9 [...] goal of less than 7.0% ([facility]) Inject 1.5 mg under the [...] yrs 12/10/2022,06/02/2022 Pneumococcal Conjugate Vacci ne, 20-valent ([id number]) 04/14/2022 Pneumococcal Polysaccharide PPV23 (Pneumovax) 07/28/2020 Seasonal [...] Description 04/04/2023 12:30 PM EST Appointment Radiology, [address] [place] [address] 04/08/2023 8:30 AM EST Telemedicine Pharmacy, [place] [address] [place] [address] [address] [place], [facility] [address] [place] [address] [address] 04/25/2023 2:00 PM EDT Office Visit [address] [place] [phone] Caitlin [facility] [address] 04/27/2023 8:45 AM EDT Appointment Radiology, [address] [address] 05/26/2023 1:00 PM EDT Appointment Cardiac Studies, [address] [address] 06/14/2023 11:20 AM EDT Office Visit [address] [place] [phone] [facility] [address] 01/09/2024 10:30 AM EST Appointment Radiology [address] [place] [address] Scheduled Procedures Name Priority Associated Diagnoses Date/Ti me COLONOSCOPY FLEXIBLE PROXIMA L DIAGNOSTIC Recall Screening for colon cancer Health Maintenance Due Date Last Done Comments DISCUSS TOBACCO CESSATION (REFER TO SMARTSET #2601) 1975 COVID-19 Vaccine (2022- season) 2022 Hepatitis [...] filedocumented as of this encounter Care Teams Test Man Relationship Specialty Start Date End Date Carlitos Rain MD [facility] [phone] PCP - General Family Medicine 02/18/22 documented as of this encounter
--- OUTSIDE RECORDS SUMMARY | 2023-04-16 10:48 | External Medical Summary ---
Author Name Unknown Address Unknown Organization K1F:[facility] - [address] [place] [address] Laboratory Report Ordering Provider Test Date Status LILY MIMS 04/14/2023 12:49:27 Final Observation Date Value Abnormality Reference (Units ) Status BUN 04/14/2023 12:49:27 12 6-20 (mg/dL) Final Creatinine 04/14/2023 12:49:27 0.9 0.5-1.0 (mg/dL) Final Glomerular filtration rate/1.73 sq M.predicted [Volume Rate/Area] in Serum, Plasma or Blood by Creatinine-based formula (CKD-EPI) 04/14/2023 12:49:27 84 >=60 (mL/min) Final eGFR is calculated based on the CKD-EPI 2020 equation SODIUM 04/14/2023 12:49:27 137 135-146 (m mol/L) Final Potassium 04/14/2023 12:49:27 3.9 3.5-5.1 (m mol/L) Final Cl 04/14/2023 12:49:27 102 98-107 (mm ol/L) Final CO2 04/14/2023 12:49:27 24 22-32 (mmo l/L) Final Anion gap 04/14/2023 12:49:27 11 7-15 (mmol /L) Final Glucose 04/14/2023 12:49:27 80 70-120 (mg /dL) Final Albumin 04/14/2023 12:49:27 4.0 3.8-5.0 (g /dL) Final AST (Aspartate aminotransferase) 04/14/2023 12:49:27 1199 Above high normal 10-35 (U/L) Final Result may be falsely elevat ed due to hemolysis. Alk Phos 04/14/2023 12:49:27 363 Above high normal 35 -130 (U/L) Final Bilirubin, Total 04/14/2023 12:49:27 0.6 <=1 .2 (mg/dL) Final Calcium 04/14/2023 12:49:27 9.5 8.4-10.2 ( mg/dL) Final Protein 04/14/2023 12:49:27 6.6 6.0-8.3 (g /dL) Final ALT (Alanine aminotransferase) 04/14/2023 12:49:27 866 Above high normal 10-35 (U/L) Final Performing Location [facility] - [facility] [address] [place] [address]
--- OUTSIDE RECORDS SUMMARY | 2023-04-16 10:48 | External Medical Summary ---
Author Name Unknown Address Unknown Organization K01:[facility] - [address] [place] [address] Laboratory Report Ordering Provider Test Date Status JAMES RICHARDSON 04/05/2023 14:45:42 Final Observation Date Value Abnormality Reference (Units ) Status TSH 04/05/2023 14:45:42 2.72 0.27-4.20 (uIU/mL) Final Performing Location LABORATORY [facility] - [address] [place] [address]
--- OUTSIDE RECORDS SUMMARY | 2023-04-16 10:48 | External Medical Summary | Summary of Care ---
Author Name Unknown Organization [facility] Address [address] [place] [address] Phone [phone] Care Team Providers Care Outreach Director Name Role Phone Carlitos Rain MD Primary Care Provider Reason for Visit * Reason Comments Dosage Adjustment In Person (Anticoag Cl inic) Pain Encounter Details Date Type Department Care Team ([facility] Contact Info) Description 04/08/2023 8:30 AM [facility], [place] [address] [place] [address] [place], [facility] [address] [place] [address] Cervicalgia*; Primary osteoarthritis of both knees; Sacroiliitis, not elsewhere classified (HCC) Allergies Active Allergy Reactions Criticality Noted Date Comments Pollen 02/10/2022 documented as of this encounter (statuses as of 04/08/2023) Medications Medication Sig Dispensed Refills Start Date End Date Status cetirizine (ZYRTEC) 10 MG TabletIndications:Sea huang allergies Take 1 Tab by mouth daily. 90 Tab 3 06/09/2018 Active Montelukast Sodium 10 MG Oral Tablet Take by mouth daily. 0 01/07/2021 Active Alcohol Prep Pads 70 % PadIndications:Type 2 diabetes mellitus with hemoglobin A1c goal of less than 7.0% ([facility]) Use for injections. Injects trulicity once weekly 100 Each 1 03/26/2022 Active OneTouch Verio In Vitro Strip (Glucose Blood)Indications:Typ e 2 diabetes mellitus with hemoglobin A1c goal of less than 8.0% (HCC) Use up to 4 times a day E11.9 400 Strip 2 04/29/2022 Active OneTouch Delica Plus [id number]: Type 2 diabetes mellitus with hemoglobin A1c [...] for Anxiety. 40 Tablet 2 04/05/2023 Active documented as of this encounter (statuses as of 04/08/2023) Active Problems Problem Noted Date Diagnosed Date [...] as of this encounter (statuses as of 04/08/2023) Resolved Problems Problem Noted Date Diagnosed Date [...] as of this encounter (statuses as of 04/08/2023) Immunizations Name Administration Dates Next Due Hepatitis B, 20+ yrs 12/10/2022,06/02/2022 Pneumococcal Conjugate Vacci ne, 20-valent ([id number]) 04/14/2022 Pneumococcal Polysaccharide PPV23 (Pneumovax) 07/28/2020 Seasonal [...] on file documented as of this encounter Progress Notes * Dixie Lau, [facility] - 04/08/2023 8:14 AM EST Images from the original note were not included. Patient location: HOME. I was not in a hospital or clinic location. After connecting through televideo, patient was verified with two unique identifiers. Patient (or authorized legal statement services representative) was then informed that this was a Telemedicine visit and being conducted confidentially over secure lines. Methods to assure confidentiality were taken. Patient acknowledged consent and understanding of privacy and security of the Telemedicine visit. The patient agreed to participate. Medication Therapy Disease Management Clinic - Chronic Pain Management Progress Note 04/08/2023 Caren Johnson, identified by name and date of , is a 47 year old female being seen for chronic pain management/education. Patient presents to pain MTM clinic for return visit. Referring Physician: Carlitos Rain MD Medication Use Agreement: on file Patient's Pharmacy: [facility] CHIEF COMPLAINT: OA/ chronic back pain, failed surgeries Fibromyalgia HPI: Notes to have stress increase this month Pain described as: radiation around the lower back, radiation to eh neck, sharp Sleep: no way to be comfortable Palliating factors: showers Exacerbating factors: any movements/ sitting too long Other interventions tried: Injections/Nerve Block Physical Therapy Surgery Worst time of day for pain: constant Imaging: EXAM XR L SPINE AP AND LATERAL; XR T SPINE AP AND LATERAL-10/26/2022 8:38 am HISTORY lower back pain; mid back TECHNIQUE AP and lateral views of the thoracic spine were provided. AP and lateral views of the lumbar spine were provided. COMPARISON Multiple, most recently MRI thoracic spine dated 10/14/2022 FINDINGS Thoracic spine: There are 12 rib-bearing thoracic type vertebrae. There is redemonstration of priorposterior fusion of T10-T11 within intervertebral disc spacer at the T10-11 level, in unchanged alignment. Hardware is intact. No evidence of hardware loosening or periprosthetic fracture. Vertebral body height and alignment are maintained. No acute fracture or subluxation. Bone mineralization is appropriate for age. No lytic or blastic osseous lesion. Intervertebral disc spaces are preserved. Multilevel facet arthropathy. Lumbar spine: There is redemonstration of a posterior lumbar fusion of L1 through L5 with intervertebral disc spacers at the L1-2, L2-3, L3-4, and L4-5 levels, in unchanged alignment. Hardware is intact. No evidence of hardware loosening or periprosthetic fracture. The bilateral sacroiliac joints are preserved. Surgical clips in the right upper abdomen. IMPRESSION IMPRESSION Intact posterior thoracic and lumbar fusions without evidence of hardware complication or failure. EXAM MRI T SPINE WO CONTRAST-10/14/2022 2:03 pm HISTORY severe post op pain COMPARISON MRI thoracic spine dated 08/30/2022 TECHNIQUE Multiplanar, multisequence magnetic resonance images of the lumbar spine were obtained without intravenous contrast. FINDINGS There are interval postoperative changes of T10-T11 laminectomies with posterior instrumented and interbody fusion. Non-specific dorsal subfascial postsurgical fluid collection at the surgical levels. Prior T8 laminectomy and lumbar laminectomies and instrumented spinal fusion are partially imaged. Alignment and vertebral body heights are maintained. The spinal canal is patent at all levels. The thoracic spinal cord is normal in signal and caliber. The imaged soft tissues are within normal limits. IMPRESSION IMPRESSION Expected postoperative changes of T10-T11 laminectomies with posterior instrumented and interbody fusion. No acute abnormalities are identified. Psychiatric Hx: depression/ anxiety Neurological Hx: TIA Cardiac Hx: denies Renal Hx: denies Hepatic Hx: denies Other: Diabetes Exercise/Activity: cannot at this time Tobacco Use: Current Alcohol Use: denies Illicit Substance/Rx Abuse: past use of Medical Marijuana CONTROLLED SUBSTANCE COMPLIANCE MONITORING: Opioid Risk Assessment Tool (BRQ): Total score: 0-2 points (Low risk) CAGE-AID (10/28/2022): Total score: 0 points (problem unlikely) Daily MME: 30 PDMP Reviewed (04/08/2023): Urine Toxicology Screens: UDS 10/28/22: (+) oxycodone/ oxymorphone (+) THC 03/15/23: (+) oxycodone/ oxymorphone Pill Count: Patient was reviewed by Telemedicine visit today Functional Goal: to be able to sit and sleep Past Pain Medications: SA Opioids: Oxycodone LA Opioids: NSAIDS: Muscle relaxants: Flexeril Antidepressants: Cymbalta: did not work Anticonvulsants: Gabapentin Lyrica Other: Current Pain Medications: Oxycodone 5 mg QID PRN Topamax 50 mg BID for migraines Lyrica 150 mg TID Flexeril 10 mg TID PRN Wellbutrin Buspirone Creatinine Clearance: Serum creatinine: 0.9 mg/dL 03/30/231810 Estimated creatinine clearance: 74.3 mL/min Creatinine Results: Recent Labs Units 03/30/23 1811 11/11/22 1417 09/29/22 1053 CREATININE - [facility] mg/dL 0.9 0.8 0.8 Hepatic Function (ALT): Recent Labs Units 09/29/22 1053 09/19/22 0807 04/19/22 1356 ALT - [facility] U/L 14 18 25 Comprehensive Metabolic Panel Results: Results for orders placed or performed during the hospital encounter of 09/29/22 COMPREHENSIVE METABOLIC PANEL Result Value Ref Range BUN 5 (L) 6 - 20 mg/dL Creatinine 0.8 0.5 - 1.0 mg/dL Estimated Glomerular Filtration Rate >90 >=60 mL/min Sodium 144 135 - 146 mmol/L Potassium 3.7 3.5 - 5.1 mmol/L Chloride 111 (H) 98 - 107 mmol/L CO2 21 (L) 22 - 32 mmol/L Anion Gap 12 7 - 15 mmol/L Glucose 89 70 - 120 mg/dL Albumin 4.1 3.8 - 5.0 g/dL AST 17 10 - 35 U/L Alkaline Phosphatase 134 (H) 35 - 130 U/L Bilirubin, Total 0.3 <=1.2 mg/dL Calcium 9.7 8.4 - 10.2 mg/dL Protein 6.8 6.0 - 8.3 g/dL ALT 14 10 - 35 U/L ASSESSMENT: Patient aware MTM is a clinical pharmacist visit, with focus on medication options for current diagnoses referred by Primary Care Provider for review and optimization. Focus of this visit is Medication Optimization. Current concerns: Patient continues with acute on chronic pain. She has had 4 prior back surgeries that were successful and was stable post a complicated thoracic surgery in August until 3 weeks post surgery. Each previous titration of Lyrica has been helpful. Notes trip to ED due to chest pain/ anxiety. Noted will follow up with cardiac testing and imaging of incidental findings in thyroid and lung Adherence: Reviewed current regimen, patient is adherent to regimen. Treatment options: Continue current regimen Treatment concerns: Discussed refill policy for opioids. Patient voiced understanding of 2 businessday policy Education provided: Education and MOA provided on treatment options for neuropathic pain provided. Discussion included but not limited to review of past history, MOA, indications, ADRs, Drug interactions, tapering, monitoring parameters, relation of renal/hepatic function and efficacy I have evaluated the patient for the appropriateness and necessity of opioid pain medications. Patient has been educated towards the benefits and risks of opioid medications, including dependence, addiction, and overdose. Patient is aware of the requirements set out in the medication use agreement,including the need for routine urine drug screening. No red flags for abuse or misuse have been exhibited. PLAN: Continue current regimen Medication changes: no change Pain Medications: Oxycodone 5 mg QID PRN Topamax 50 mg BID for migraines Lyrica 150 mg TID Flexeril 10 mg TID PRN Patient verbalized understanding of the plan. Contact clinic with any issues. FOLLOW UP: Return to clinic in 4 weeks 05/06/2023 Dixie Lau [facility] Clinical Pharmacist - [facility] Teacher Medication Therapy Management Clinic 04/08/2023, 8:15 AM documented in this encounter Plan of Treatment Upcoming Encounters Date Type Department Care Team (Late st Contact Info) Description 04/25/2023 2:00 PM EDT Office Visit [facility] [address] [phone] [facility] [address] 04/27/2023 8:45 AM EDT Appointment Radiology, [address] [place] [address] 05/06/2023 9:00 AM EDT Telemedicine Pharmacy, [place] [address] [address] [facility] [place] [address] 05/18/2023 11:00 AM EDT Office Visit Otol[place]ology, [place] [address] [address] Sorin Burks PA-C [address] [address] 05/26/2023 1:00 PM EDT Appointment Cardiac Studies, [address] [place] [address] 06/14/2023 11:20 AM EDT Office Visit Family Practice, [place] [address] [phone] Carlitos Rain MD [address] [place] [address] 01/09/2024 10:30 AM EST Appointment Radiology, [place] [address] [address] Scheduled Procedures Name Priority Associated Diagnoses Date/Ti me COLONOSCOPY FLEXIBLE PROXIMA L DIAGNOSTIC Recall Screening for colon cancer Health Maintenance Due Date Last Done Comments DISCUSS TOBACCO CESSATION (REFER TO SMARTSET #3011) 1975 COVID-19 Vaccine ( season) 2022 Hepatitis B (3 of 3 [...] as of this encounter Visit Diagnoses Diagnosis Cervicalgia- Primary Primary osteoarthritis of both knees Primary localized osteoarthrosis, lower leg Sacroiliitis, not elsewhere classified (HCC) Sacroiliitis, not elsewhere classified documented in this encounter Care Teams Outreach Director Relationship Specialty Start Date End Date Carlitos Rain MD [address] [phone] PCP - General Family Medicine 02/18/22 documented as of this encounter
--- OUTSIDE RECORDS SUMMARY | 2023-04-16 10:48 | External Medical Summary ---
Author Name Unknown Address Unknown Organization K1F:LABORATORY [facility] - [address] [place] [address] Laboratory Report Ordering Provider Test Date Status LILY MIMS 04/14/2023 12:49:27 Final Observation Date Value Abnormality Reference (Units ) Status WBC, Total 04/14/2023 12:49:27 3.91 Below low normal 4.00-10.80 (K/uL) Final RBC 04/14/2023 12:49:27 4.10 3.85-5.15 (M/uL) Final Hemoglobin 04/14/2023 12:49:27 13.2 12.0-15.3 (g/dL) Final HCT 04/14/2023 12:49:27 40.0 36.0-45.2 (%) Final MCV 04/14/2023 12:49:27 97.6 81.5-97.5 (fL) Final MCH 04/14/2023 12:49:27 32.2 27.0-34.0 (pg) Final MCHC 04/14/2023 12:49:27 33.0 32.0-36.0 (g/dL) Final RDW 04/14/2023 12:49:27 13.4 11.5-15.5 (%) Final Platelets 04/14/2023 12:49:27 145 140-400 (K/uL) Final MPV 04/14/2023 12:49:27 11.4 6.6-11.1 (fL) Final Nucleated erythrocytes/100 leukocytes [Ratio] in Blood by Automated count 04/14/2023 12:49:27 0 <=0 (/100 WBCs) Final Performing Location LAB[facility]ATORY [facility] - [address] [place] [address]
--- OUTSIDE RECORDS SUMMARY | 2023-04-16 10:48 | External Medical Summary ---
Author Name Unknown Address Unknown Organization K1F:[facility] - [address] [place] [address] Laboratory Report Ordering Provider Test Date Status LILY MIMS 04/14/2023 12:49:27 Final Observation Date Value Abnormality Reference (Units ) Status SYNC LEUKOCYTES IN BLOOD BY AUTOMATED COUNT 04/14/2023 12:49:27 3.91 Below low normal 4.00-10.80 (K/uL) Final Segs 04/14/2023 12:49:27 46.8 40.0-75.0 (%) Final Lymphs % 04/14/2023 12:49:27 40.9 18.0-42.0 (%) Final Monos 04/14/2023 12:49:27 9.2 1.0-11.0 (%) Final Eosinophils 04/14/2023 12:49:27 2.6 0.0-6.0 (%) Final Basos 04/14/2023 12:49:27 0.5 0.0-2.0 (%) Final Immature Granulocyte, Percent 04/14/2023 12:49:27 0.0 0.0-2.0 (%) Final Absolute Segs 04/14/2023 12:49:27 1.83 1.80-7.70 (K/uL) Final Lymphs, absolute 04/14/2023 12:49:27 1.60 1.00-4.80 (K/ul) Final Monos, Abs 04/14/2023 12:49:27 0.36 0.00-1.10 (K/uL) Final Eos, Abs 04/14/2023 12:49:27 0.10 0.00-0.70 (K/uL) Final Basos, Abs 04/14/2023 12:49:27 0.02 0.00-0.20 (K/uL) Final Immature Granulocytes, Number 04/14/2023 12:49:27 0.00 0.00-0.20 (K/uL) Final Performing Location LABORATORY [facility] - [address] [place] [address]
--- OUTSIDE RECORDS SUMMARY | 2023-04-16 10:48 | External Medical Summary | Summary of Care ---
Author Name Unknown Organization [facility] Address [address] [place] [address] Phone [phone] Care Team Providers Care Associate Team Physician Name Role Phone Carlitos Rain MD Primary Care Provider Reason for Visit * Reason Onset Date Comments Medication Refill 04/08/2023 Encounter Details Date Type Department Care Team (Late st Contact Info) Description 04/08/2023 Refill [facility] [address] [place] [phone] Carlitos Rain MD [address] [place] [address] Acute exacerbation of chronic low [...] hemoglobin A1c goal of less than 7.0% ([facility]) Use for injections. Injects trulicity once weekly 100 Each 1 03/26/2022 Active OneTouch Verio In Vitro Strip (Glucose Blood)Indications:Ty pe 2 diabetes mellitus with hemoglobin A1c goal of less than 8.0% (HCC) Use up to 4 times a day E11.9 400 Strip 2 04/29/2022 Active OneTouch Delica Plus [id number] :Type 2 diabetes mellitus with hemoglobin A1c [...] Pain, Severe. 60 Tablet 0 04/11/2023 Active oxyCODONE HCl 5 MG Oral Tablet [...] 02/18/2023 Food insecurity 08/16/2022 03/24/2023 Overview: Per [email or web address] Protocol BMI 40.0-44.9, adult 02/18/2022 [...] yrs 12/10/2022,06/02/2022 Pneumococcal Conjugate Vacci ne, 20-valent ([id number]) 04/14/2022 Pneumococcal Polysaccharide PPV23 (Pneumovax) 07/28/2020 Seasonal [...] Encounter - Thomas Robledo PA-C - 04/11/2023 10:15 AM EST Signed Prescriptions: Disp Refills oxyCODONE HCl 5 MG Oral Tablet (Oxy IR) 60 Tab*0 Sig: Take 1 Tablet by mouth every 6 hours as needed for Pain, Severe.Authorizing Provider: DEANNA HERRERA * Telephone Encounter - Thomas Robledo PA-C - 04/11/2023 10:12 AM EST Signed Prescriptions: Disp Refills oxyCODONE HCl 5 MG Oral Tablet (Oxy IR) 60 Tab*0 Sig: Take 1 Tablet by mouth every 6 hours as needed for Pain, Severe.Authorizing Provider: DEANNA HERRERA * Telephone Encounter - Deanna Herrera MD - 04/11/2023 10:04 AM EST I have reviewed the patients controlled substance dispensing history in the Prescription Drug Monitoring Program in compliance with the [facility] regulations before prescribing a controlled substance. Last Tox Screen Results: Results for orders placed or performed in [...] purposes. Confirmatory testing is available upon request. * Telephone Encounter - Renetta Farooq CPhT - 04/11/2023 9:55 AM EST Pt calling to check on status of Oxycodone. Caller can be reached at [phone]. Thank you, Renetta Farooq CPhT In Service Coordinator [facility] ([facility])(formerly telepharmacy) 04/11/2023,9:55 AM * Telephone Encounter - Bobby Medley [facility] - 04/10/2023 3:39 PM EST Pending Prescriptions: Disp Refills oxyCODONE HCl 5 MG Oral Tablet (Oxy IR) 60 Tab*0 Sig: Take 1 Tablet by mouth every 6 hours as needed for Pain, Severe. * Telephone Encounter - Bobby Medley [facility] - 04/10/2023 3:38 PM EST I have reviewed the patients controlled substance dispensing history in the Prescription Drug Monitoring Program in compliance with the [facility] regulations before prescribing a controlled substance. PDMP checked on 04/10/2023. Pending Prescriptions: Disp Refills oxyCODONE HCl 5 MG Oral Tablet (Oxy IR) 60 Tab*0 Sig: Take 1 Tablet by mouth every 6 hours as needed for Pain, Severe. Last Visit: 04/01/2023 (in office), Visit date not found (telemedicine) Next Visit: 04/25/2023 Date medication was last filled: 03/25 Date medication is due for refill: 04/07 Pharmacy: [facility] Is this request for a controlled substance? [...] upon request. Please approve if appropriate. Thanks, Bobby Medley, PharmD Clinical Pharmacist [facility](formerly telepharmacy) [phone] 04/10/2023, 3:38 PM documented in this encounter Plan of Treatment Upcoming Encounters Date Type Department Care Team (Late st Contact Info) Description 04/25/2023 2:00 PM EDT Office Visit [facility] [address] [place] [phone] Caitlin López MD [address] [facility] [place] [place] [address] 04/27/2023 8:45 AM EDT Appointment Radiology[address] [place] [address] 05/06/2023 9:00 AM EDT Telemedicine Pharmacy, [place] [address] [place] [address] [facility] [address] [place] [address] 05/18/2023 11:00 AM EDT Office Visit Otol[facility]ology[facility] [place] [address] [place] [address] Sorin Burks PA-C [address] [place] [address] 05/26/2023 1:00 PM EDT Appointment [address], [address] [address] 06/14/2023 11:20 AM EDT Office Visit [facility] [address] [phone] Carlitos Rain MD 21 [facility] [place] [address] 01/09/2024 10:30 AM EST Appointment Radiology[address] [place] [address] Scheduled Procedures Name Priority Associated Diagnoses Date/Ti me COLONOSCOPY FLEXIBLE PROXIMA L DIAGNOSTIC Recall Screening for colon cancer Health Maintenance Due Date Last Done Comments DISCUSS TOBACCO CESSATION (REFER TO SMARTSET #7546) 1975 COVID-19 Vaccine ( - 2022-24 season) 2022 Hepatitis B (3 of 3 [...] region documented in this encounter Care Teams Associate Team Physician Relationship Specialty Start Date End Date Carlitos Rain MD [address] [phone] PCP - General Family Medicine 02/18/22 documented as of this encounter
--- OUTSIDE RECORDS SUMMARY | 2023-04-16 10:48 | External Medical Summary ---
Author Name Unknown Address Unknown Organization K1F:LABORATORY [facility] - [address] [place] [address] Laboratory Report Ordering Provider Test Date Status LILY MIMS 04/14/2023 12:49:27 Final Observation Date Value Abnormality Reference (Units ) Status CRP, low-sensitivity 04/14/2023 12:49:27 <3 <=5 (mg/L) Final Performing Location LABORATORY [facility] - [address] [place] [address]
--- OUTSIDE RECORDS SUMMARY | 2023-04-16 10:49 | External Medical Summary | Summary of Care ---
Author Name Unknown Organization [facility] Address [address] [place] [address] Phone [phone] Care Team Providers Care Bleach Liquor Maker Name Role Phone Carlitos Rain MD Primary Care Provider Encounter Details Date Type Department Care Team (Late st Contact Info) Description 03/31/2023 Population Health External Data Unspecified Department Allergies Active Allergy Reactions Criticality Noted Date Comments Pollen 02/10/2022 documented as of this encounter (statuses as of 03/31/2023) Medications Medication Sig Dispensed Refills Start Date End Date Status cetirizine (ZYRTEC) 10 MG TabletIndications:Seas onal allergies Take 1 Tab by mouth daily. 90 Tab 3 06/09/2018 Active Montelukast Sodium 10 MG Oral Tablet Take by mouth daily. 0 01/07/2021 Active Alcohol Prep Pads 70 % PadIndications:Type 2 diabetes mellitus with hemoglobin A1c goal of less than 7.0% (HCC) Use for injections. Injects trulicity once weekly 100 Each 1 03/26/2022 Active OneTouch Verio In Vitro Strip (Glucose Blood)Indications:Type 2 diabetes mellitus with hemoglobin A1c goal of less than 8.0% (HCC) Use up to 4 times a day E11.9 400 Strip 2 04/29/2022 Active OneTouch Delica Plus [id number]:T ype 2 diabetes mellitus with hemoglobin A1c goal of less than 8.0% (HCC) Up to 4 times a day E11.9 400 Each 2 04/29/2022 Active Ondansetron 4 MG Oral Tablet DisintegratingIndicati ons:Nausea without vomiting Place 1 Tablet on tongue every 8 hours as needed for Nausea. dissolve on tongue. 20 Tablet 0 05/19/2022 Active Atorvastatin Calcium 10 MG Oral Tablet (Lipitor)Indications:M ixed hyperlipidemia TAKE 1 TABLET BY MOUTH DAILY 90 Tablet 3 10/06/2022 Active Vitamin D3 50 MCG (2000 UT) Oral Capsule TAKE 1 CAPSULE BY MOUTH DAILY 90 Capsule 3 10/06/2022 Active Dulaglutide 1.5 MG/0.5ML Subcutaneous Solution Pen-injector (Trulicity)Indications :Type 2 diabetes mellitus with hemoglobin A1c goal of less than 7.0% ([facility]) Inject 1.5 mg under the skin once a week. 6 mL 2 10/29/2022 Active busPIRone HCl 5 MG Oral Tablet (Buspar) Take 1 Tablet by mouth in the morning and 1 Tablet at noon and 1 Tablet before bedtime. 90 Tablet 5 11/05/2022 Active Esomeprazole Magnesium 40 MG Oral Capsule Delayed Release (NexIUM)Indications:Ga stroesophageal reflux disease, unspecified whether esophagitis present Take 1 Capsule by mouth daily. 30-60 min prior to the first main meal of the day. 90 Capsule 1 11/29/2022 Active traZODone HCl 50 MG Oral Tablet (Desyrel) Take 1 Tablet by mouth at bedtime. 30 Tablet 5 12/10/2022 Active buPROPion HCl ER (XL) 150 MG Oral Tablet Extended Release 24 Hour (Wellbutrin XL)Indications:Anxiety and depression Take 1 Tablet by mouth [...] HFA 108 (90 Base) MCG/ACT Inhalation Aerosol SolutionIndications:Wh eezing Inhale 2 Puffs by mouth every 4 hours as needed for Shortness of Breath or Wheezing. As needed 18 g 2 02/15/2023 Active Cyclobenzaprine HCl 10 MG Oral Tablet (Flexeril) Take 1 Tablet by mouth in the morning and 1 Tablet at noon and 1 Tablet before bedtime. 0 01/03/2023 Active Acetaminophen 500 MG Oral Tablet (Tylenol)Indications:S ore throat Take 2 Tablets by mouth every 6 hours as needed for Pain, Moderate. 30 Tablet 1 03/15/2023 Active metFORMIN HCl ER 500 MG Oral Tablet Extended Release 24 Hour (Glucophage XR)Indications:Type 2 diabetes mellitus with hemoglobin A1c goal of less than 8.0% (HCC) Take 1 Tablet by mouth in the morning. 90 Tablet 3 03/21/2023 Active Pregabalin 150 MG Oral Capsule (Lyrica)Indications:Alie mbosacral radiculopathy Take 1 Capsule by mouth in the morning and 1 Capsule at noon and 1 Capsule before bedtime. 90 Capsule 1 03/23/2023 Active oxyCODONE HCl 5 MG Oral Tablet (Oxy IR)Indications:Acute exacerbation of chronic low back pain,Other intervertebral disc displacement, lumbosacral region Take 1 Tablet by mouth every 6 hours as needed for Pain, Severe. 60 Tablet 0 03/25/2023 Active documented as of this encounter (statuses as of 03/31/2023) Active Problems Problem Noted Date Diagnosed Date [...] as of this encounter (statuses as of 03/31/2023) Resolved Problems Problem Noted Date Diagnosed Date [...] as of this encounter (statuses as of 03/31/2023) Immunizations Name Administration Dates Next Due Hepatitis B, 20+ yrs 12/10/2022,06/02/2022 Pneumococcal Conjugate Vacci ne, 20-valent ([id number]) 04/14/2022 Pneumococcal Polysaccharide PPV23 (Pneumovax) 07/28/2020 Seasonal [...] Description 04/08/2023 8:30 AM EST Telemedicine Pharmacy, [place] [address] [address] [address] [facility] [address] [place] [address] 06/14/2023 11:20 AM EDT Office Visit Family Practice, [place] [address] [phone] Carlitos Rain MD [address] [address] 01/09/2024 10:30 AM EST [place] [address] Scheduled Procedures Name Priority Associated Diagnoses Date/Ti me COLONOSCOPY FLEXIBLE PROXIMA L DIAGNOSTIC Recall Screening for colon cancer Health Maintenance Due Date Last Done Comments DISCUSS TOBACCO CESSATION (REFER TO SMARTSET #5187) 1975 COVID-19 Vaccine ( - 2022-24 season) [...] filedocumented as of this encounter Care Teams Bleach Liquor Maker Relationship Specialty Start Date End Date Carlitos Rain MD [address] [phone] PCP - General Family Medicine 02/18/22 documented as of this encounter
--- OUTSIDE RECORDS SUMMARY | 2023-04-16 10:49 | External Medical Summary ---
Author Name Unknown Address Unknown Organization K01:[facility] - [address] [place] [address] Laboratory Report Ordering Provider Test Date Status JAMES RICHARDSON 04/04/2023 13:00:01 Final Observation Date Value Abnormality Reference (Units ) Status SYNC LEUKOCYTES IN BLOOD BY AUTOMATED COUNT 04/04/2023 13:00:01 4.28 4.00-10.80 (K/uL) Final Segs 04/04/2023 13:00:01 69.0 40.0-75.0 (%) Final Lymphs % 04/04/2023 13:00:01 25.2 18.0-42.0 (%) Final Monos 04/04/2023 13:00:01 4.2 1.0-11.0 (%) Final Eosinophils 04/04/2023 13:00:01 0.2 0.0-6.0 (%) Final Basos 04/04/2023 13:00:01 0.9 0.0-2.0 (%) Final Immature Granulocyte, Percent 04/04/2023 13:00:01 0.5 0.0-2.0 (%) Final Absolute Segs 04/04/2023 13:00:01 2.95 1.80-7.70 (K/uL) Final Lymphs, absolute 04/04/2023 13:00:01 1.08 1.00-4.80 (K/ul) Final Monos, Abs 04/04/2023 13:00:01 0.18 0.00-1.10 (K/uL) Final Eos, Abs 04/04/2023 13:00:01 0.01 0.00-0.70 (K/uL) Final Basos, Abs 04/04/2023 13:00:01 0.04 0.00-0.20 (K/uL) Final Immature Granulocytes, Number 04/04/2023 13:00:01 0.02 0.00-0.20 (K/uL) Final Performing Location [facility] - [address] [facility] [address]
--- OUTSIDE RECORDS SUMMARY | 2023-04-16 10:49 | External Medical Summary | Summary of Care ---
Author Name Unknown Organization [facility] Address [address] [place] [address] Phone [phone] Care Team Providers Care Pulper Operator Name Role Phone Carlitos Rain MD Primary Care Provider Reason for Visit * Reason Onset Date Comments Medication Pre-auth 04/01/2023 POLYETHYLENE GLYCOL 3350 POWD Encounter Details Date Type Department Care Team (Late st Contact Info) Description 04/01/2023 Telephone [facility] [address] [place] [address] Caitlin López MD [address] [place] [address] Medication Pre-auth (POLYETHYLENE GLYCOL 3... Allergies Active Allergy Reactions Criticality Noted Date Comments Pollen 02/10/2022 documented as of this encounter (statuses as of 04/01/2023) Medications Medication Sig Dispensed Refills Start Date End Date Status cetirizine (ZYRTEC) 10 MG TabletIndications:Sea huang allergies Take 1 Tab by mouth daily. 90 Tab 3 06/09/2018 Active Montelukast Sodium 10 MG Oral Tablet Take by mouth daily. 0 01/07/2021 Active Alcohol Prep Pads 70 % PadIndications:Type 2 diabetes mellitus with hemoglobin A1c goal of less than 7.0% ([facility]) Use for injections. Injects trulicity once weekly 100 Each 1 03/26/2022 Active OneTouch Verio In Vitro Strip (Glucose Blood)Indications:Typ e 2 diabetes mellitus with hemoglobin A1c goal of less than 8.0% (HCC) Use up to 4 times a day E11.9 400 Strip 2 04/29/2022 Active OneTouch Delica Plus [id number]: Type 2 diabetes mellitus with hemoglobin A1c [...] Active Dulaglutide 1.5 MG/0.5ML Subcutaneous Solution Pen-injector ([employer])Indication s:Type 2 diabetes mellitus with hemoglobin A1c [...] hemoglobin A1c goal of less than 8.0% ([facility]) Take 1 Tablet by mouth in [...] as of this encounter (statuses as of 04/01/2023) Active Problems Problem Noted Date Diagnosed Date [...] as of this encounter (statuses as of 04/01/2023) Resolved Problems Problem Noted Date Diagnosed Date Resolved Date Morbid (severe) obesity due to excess calories 02/16/2023 02/18/2023 Food insecurity 08/16/2022 03/24/2023 Overview: Per [facility] Protocol BMI 40.0-44.9, adult 02/18/2022 [...] as of this encounter (statuses as of 04/01/2023) Immunizations Name Administration Dates Next Due Hepatitis B, 20+ yrs 12/10/2022,06/02/2022 Pneumococcal Conjugate Vacci ne, 20-valent ([id number]) 04/14/2022 Pneumococcal Polysaccharide PPV23 (Pneumovax) 07/28/2020 Seasonal [...] encounter Miscellaneous Notes * Telephone Encounter - Igor Edouard CPhT - 04/01/2023 3:26 PM EST Patients insurance would like to inform the office that POLYETHYLENE GLYCOL 3350 POWD is denied because OTC Products Not Covered Under Part D Law.. They will fax this info to the office, please review and resubmit if appropriate. Thank you, Coleman Edouard (shank maker) Hybrid Car Mechanic III [facility] (formerly Telepharmacy) 04/01/2023, 3:26 PM documented in this encounter Plan of Treatment Upcoming Encounters Date Type Department Care Team (Late st Contact Info) Description 04/04/2023 12:30 PM EST [facility]ointment Rad[facility], [place] [address] [facility] [address] [place] [address] 04/08/2023 8:30 AM EST Telemedicine Pharmacy, [place] [address] [address] [address] [facility] [address] [address] 04/25/2023 2:00 PM EDT Office Visit Family [facility], [place] [address] [phone] Caitlin López MD [address] [address] 04/27/2023 8:45 AM EDT Appointment Radiology, [address] [place] [place] [address] 05/26/2023 1:00 PM EDT Appointment Cardiac Studies, [facility] [address] [place] [place] [address] 06/14/2023 11:20 AM EDT Office Visit Family Practice, [place] [address] [phone] Carlitos Rain MD 21 [facility] [place] [place] [address] 01/09/2024 10:30 AM EST Appointment Radiology, [place] [address] [address] Scheduled Procedures Name Priority Associated Diagnoses Date/Ti me COLONOSCOPY FLEXIBLE PROXIMA L DIAGNOSTIC Recall Screening for colon cancer Health Maintenance Due Date Last Done Comments DISCUSS TOBACCO CESSATION (REFER TO SMARTSET #0610) 1975 COVID-19 Vaccine (2022- season) 2022 Hepatitis [...] filedocumented as of this encounter Care Teams Pulper Operator Relationship Specialty Start Date End Date Carlitos Rain MD [address] [address] PCP - General Family Medicine 02/18/22 documented as of this encounter
--- OUTSIDE RECORDS SUMMARY | 2023-04-16 10:49 | External Medical Summary ---
Author Name Unknown Address Unknown Organization K1F:[facility] - [address] [place] [address] Laboratory Report Ordering Provider Test Date Status SELVIN FARLEY 03/30/2023 18:11:17 Final Observation Date Value Abnormality Reference (Units ) Status Troponin T 03/30/2023 18:11:17 <6 <=14 (ng/ L) Final Performing Location [facility] - [address] [place] [address]
--- OUTSIDE RECORDS SUMMARY | 2023-04-16 10:49 | External Medical Summary | Summary of Care ---
Author Name Unknown Organization [facility] Address [address] [place] [address] Phone [phone] Care Team Providers Care Farm Management Teacher Name Role Phone Carlitos Rain MD Primary Care Provider Reason for Visit * Reason Comments Medication Discussion Encounter Details Date Type Department Care Team ([facility] st Contact Info) Description 03/28/2023 1:40 PM [facility] Telemedicine Pharmacy, [address] [place] [address] Pharmacist2, [address] [place] [address] Encounter for medication review* Allergies Active Allergy Reactions Criticality Noted Date Comments Pollen 02/10/2022 documented as of this encounter (statuses as of 03/28/2023) Medications Medication Sig Dispensed Refills Start Date End Date Status cetirizine (ZYRTEC) 10 MG TabletIndications:Se asonal allergies Take 1 Tab by mouth daily. 90 Tab 3 06/09/2018 Active Montelukast Sodium 10 MG Oral Tablet Take by mouth daily. 0 01/07/2021 Active Alcohol Prep Pads 70 % PadIndications:Type 2 diabetes mellitus with hemoglobin A1c goal of less than 7.0% ([facility]) Use for injections. Injects trulicity once weekly 100 Each 1 03/26/2022 Active OneTouch Verio In Vitro Strip (Glucose Blood)Indications:Ty pe 2 diabetes mellitus with hemoglobin A1c goal of less than 8.0% (HCC) Use up to 4 times a day E11.9 400 Strip 2 04/29/2022 Active OneTouch Delica Plus [id number] :Type 2 diabetes mellitus with hemoglobin A1c goal of less than 8.0% (HCC) Up to 4 times a day E11.9 400 Each 2 04/29/2022 Active Ondansetron 4 MG Oral Tablet DisintegratingIndica tions:Nausea without vomiting Place 1 Tablet on tongue every 8 hours as needed for Nausea. dissolve on tongue. 20 Tablet 0 05/19/2022 Active Additional Information Patient not taking.Reported on 02/15/2023 Atorvastatin Calcium 10 MG Oral Tablet (Lipitor)Indications :Mixed hyperlipidemia TAKE 1 TABLET BY MOUTH DAILY 90 Tablet 3 10/06/2022 Active Vitamin D3 50 MCG (1999 UT) Oral Capsule TAKE 1 CAPSULE BY MOUTH DAILY 90 Capsule 3 10/06/2022 Active Dulaglutide 1.5 MG/0.5ML Subcutaneous Solution Pen-injector ([facility])Indicatio ns:Type 2 diabetes mellitus with hemoglobin A1c goal of less than 7.0% ([facility]) Inject 1.5 mg under the skin [...] the day. 90 Capsule 1 11/29/2022 Active Additional Information Patient not taking.Reported on 02/15/2023 traZODone HCl 50 MG Oral Tablet (Desyrel) [...] 01/03/2023 Active Acetaminophen 500 MG Oral Tablet (Tylenol)Indications [...] Pain, Severe. 60 Tablet 0 03/25/2023 Active Esomeprazole Magnesium 40 MG Oral Capsule Delayed Release (NexIUM)Indications: Gastroesophageal reflux disease, unspecified whether esophagitis present Take 1 Capsule by mouth daily. 30-60 min prior to the first main meal of the day. 90 Capsule 1 05/21/2022 03/28/19 24 Discontinu ed(Medicat ion List Clean Up) Lisinopril 5 MG Oral Tablet (Prinivil)Indication s:Essential (primary) hypertension TAKE 1 TABLET BY MOUTH DAILY 90 Tablet 3 10/06/2022 03/28/19 24 Discontinu ed(Adverse reaction) Nicotine 21 MG/24HR Transdermal Patch 24 Hour (Nicoderm CQ) APPLY 1 PATCH DAILY DIRECTED 0 09/04/2022 03/28/19 24 Discontinu ed(End of Procedure) Amoxicillin 500 MG Oral Capsule (Amoxil)Indications: Left ear pain Take 1 Capsule by mouth in the morning and 1 Capsule at noon and 1 Capsule before bedtime. Do all this for 10 days. 30 Capsule 0 02/15/2023 03/28/19 24 Discontinu ed(End of Procedure) Ofloxacin 0.3 % Otic Solution (Floxin)Indications: Left ear pain Administer 10 Drops into the left ear in the morning for 10 days. In affected ear for 10 days.. 5 mL 0 02/15/2023 03/28/19 24 Discontinu ed(End of Procedure) predniSONE 20 MG Oral Tablet (Deltasone)Indicatio ns:Bilateral hearing loss, unspecified hearing loss type Take 3 Tablets by mouth in the morning for 8 days. 24 Tablet 0 02/18/2023 03/28/19 24 Discontinu ed(End of Procedure) Benzonatate 100 MG Oral CapsuleIndications:A cute cough Take 1 Capsule by mouth 3 times a day as needed for Cough. 30 Capsule 1 03/15/2023 03/28/19 24 Discontinu ed(End of Procedure) documented as of this encounter (statuses as of 03/28/2023) Active Problems Problem Noted Date Diagnosed Date [...] as of this encounter (statuses as of 03/28/2023) Resolved Problems Problem Noted Date Diagnosed Date [...] as of this encounter (statuses as of 03/28/2023) Immunizations Name Administration Dates Next Due Hepatitis B, 20+ yrs 12/10/2022,06/02/2022 Pneumococcal Conjugate Vacci ne, 20-valent ([id number]) 04/14/2022 Pneumococcal Polysaccharide PPV23 (Pneumovax) 07/28/2020 Seasonal [...] as of this encounter Progress Notes * Caren Kim RPh - 03/28/2023 1:34 PM EST CMR completed today in Medication Management encounter (03/28/23). Caren Kim RPH Clinical Pharmacist 03/28/2023, 1:49 PM documented in this encounter Plan of Treatment Upcoming Encounters Date Type Department Care Team (Late st Contact Info) Description 04/08/2023 8:30 AM EST Telemedicine Pharmacy, [place] [address] [address] [facility] [address] [address] 06/14/2023 11:20 AM EDT Office Visit Family [place], [place] [phone] Carlitos Rain MD [address] [address] 01/09/2024 10:30 AM EST Appointment Radiology, [place] [address] [address] Scheduled Procedures Name Priority Associated Diagnoses Date/Ti me COLONOSCOPY FLEXIBLE PROXIMA L DIAGNOSTIC Recall Screening for colon cancer Health Maintenance Due Date Last Done Comments DISCUSS TOBACCO CESSATION (REFER TO SMARTSET #7892) 1975 COVID-19 Vaccine ( season) 2022 Hepatitis B (3 of 3 - 19+ 3-dose series) 02/04/2023 12/10/2022, 06/02/2022 COLONOSCOPY-ANNUAL AGES 18-100 04/08/2023 04/07/2022, 04/07/2022 HbA1c 05/13/2023 11/11/2022, 05/09, 03/21/2022 Albumin/Creatinine Ratio 06/03/2023 06/02/2022 Diabetic Foot Exam 06/03/2023 06/02/2022 GFR 11/12/2023 11/11/2022, 09/08, 09/19/2022, Additional history exists Diabetic Eye Exam 11/23/2023 11/22/2022, 04/07/2022 Mammogram 01/06/2024 01/05/2023, 06/09/2018 Depression Screening 02/17/2024 02/16/2023 Lipid Panel 03/21/2027 03/21/2022, 02/0 10/2021, 02/19/2019, Additional history exists DTaP,Tdap,and Td Vaccines (2 - Td or Tdap) 07/28/2030 07/28/2020 Colonoscopy Discontinued 04/07/2022, 04/07/2022 Colorectal Cancer Screening Discontinued Pneumococcal Vaccine: Pediatrics [...] as of this encounter Visit Diagnoses Diagnosis Encounter for medication review- Primary Encounter for long-term (current) use of other medications documented in this encounter Care Teams Farm Management Teacher Relationship Specialty Start Date End Date Carlitos Rain MD [address] [address] PCP - General Family Medicine 02/18/22 documented as of this encounter
--- OUTSIDE RECORDS SUMMARY | 2023-04-16 10:49 | External Medical Summary ---
Author Name Unknown Address Unknown Organization K1F:LAB[facility]ATORY [facility] - [address] [place] [address] Laboratory Report Ordering Provider Test Date Status SELVIN FARLEY 03/30/2023 21:34:00 Final Observation Date Value Abnormality Reference (Units ) Status Troponin T 03/30/2023 21:34:00 <6 <=14 (ng/ L) Final Performing Location [facility] - [address] [place] [address]
--- OUTSIDE RECORDS SUMMARY | 2023-04-16 10:49 | External Medical Summary ---
Author Name Unknown Address Unknown Organization K1F:[facility] - [address] [place] [address] Laboratory Report Ordering Provider Test Date Status MARTINESELVIN 03/30/2023 18:11:17 Final Rheumatoid factor at a level above 50 IU/mL may lead to an overestimation of the D-dimer level. A normal D-dimer result (<0.50 ug/mL FEU) has a negative predictive value of approximately 95% for the exclusion of acute pulmonary embolism (PE) or deep vein thrombosis when there is low or moderate pretest PE probability. Increased D-dimer values are abnormal but do not indicate a specific disease state and the D-dimer increase does not definitively correlate with clinical severity of disease. Observation Date Value Abnormality Reference (Units ) Status Fibrin D-dimer FEU [Mass/volume] in Platelet poor plasma by Immunoassay 03/30/2023 18:11:17 0.65 Above high normal <0.50 (ug/mL FEU) Final Performing Location LABORATORY [facility] - [address] [place] [place] [address]
--- OUTSIDE RECORDS SUMMARY | 2023-04-16 10:49 | External Medical Summary | Summary of Care ---
Author Name Unknown Organization [facility] Address [address] [place] [address] Phone [phone] Care Team Providers Care Engine Generator Assembler Name Role Phone Carlitos Rain MD Primary Care Provider Reason for Visit * Reason Comments Chest Pain * Auth/Cert Specialty Diagnoses / Procedures Referred By Rafiq t Referred To Contact Referral ID Status Reason Start Date Expiration Date Visits Re quested Visits Authorized [id number] Encounter Details Date Type Department Care Team (Late st Contact Info) Description 03/30/2023 5:30 PM EST - 03/30/2023 10:25 PM EST Emergency [facility] [address] [place] [address] Lemuel Gonzales MD [address] [place] [address] Chest pain Discharge Disposition: Home - Self Care Allergies [...] Strip 2 04/29/2022 Active OneTouch Delica Plus [id number]:T ype 2 diabetes mellitus with hemoglobin A1c [...] yrs 12/10/2022,06/02/2022 Pneumococcal Conjugate Vacci ne, 20-valent (Vklgylv20) 04/14/2022 Pneumococcal Polysaccharide PPV23 (Pneumovax) 07/28/2020 Seasonal [...] Sign Reading Time Taken Comments Blood Pressure 111/63 03/30/2023 9:30 PM EST Pulse 71 03/30/2023 9:30 PM EST Temperature 36.8 C (98.2 F) 03/30/2023 5:35 PM ES T Respiratory Rate 20 03/30/2023 9:30 PM EST Oxygen Saturation 95% 03/30/2023 7:30 PM EST Inhaled Oxygen Concentration - - Weight 83.2 kg (183 lb 6.8 oz) 03/30/2023 5:35 P M EST Height - - Body Mass Index 34.66 09/29/2022 10:18 AM EDT documented in this encounter Discharge Instructions * Discharge Instructions* Lemuel Gonzales MD - 03/30/2023 10:19 PM EST Continue usual medicine documented in this encounter ED Notes * Lemuel Gonzales MD - 03/30/2023 5:43 PM EST HISTORY OF PRESENT ILLNESS Caren Johnson is a 47 year old female who presents to the ED for evaluation of Chest Pain. The patient was seen at 03/30/23 1742. Patient reports that she had onset of chest pain about 2 hours ago. This is a heavy chest pain which seemed to radiate to her left arm and shoulder. Then she seemed to have a pain to her whole-body with a numbness to her whole body. It did not make her short of breath. It did not make her sweaty. She was given aspirin and nitroglycerin in the ambulance and felt the pain improved but then came back. She now has a bad headache Reports that she takes cholesterol medicines. She is diabetic. She has a smoker. She was told at another hospital that she had a mini-stroke but is not on any blood thinners. This was about a year ago She is on chronic oxycodone because of back pain and has had previous surgeries with rods in her back Chest Pain Review of Systems Cardiovascular: Positive for chest pain. The patient's allergies, past history, and medications were reviewed. PHYSICAL EXAM Initial Vitals (see all): BP 122/77 | Pulse 76 | Resp 20 | Temp 98.2 | O2 99 %, Room Air, None | Weight 83.2 kg | Height 154.9 cm | BMI 34.66 kg/m2 Initial Pain Assessment (see all): 3 (mild pain)/10, Stabbing, location: chest ([facility] Adult Scale 0-10) General: Alert. appropriate for age. Appears uncomfortable Skin: Warm, dry. Head: Atraumatic. Neck: trachea midline. No distended neck veins supple Eye: Normal conjunctiva. PERRL, EOMI, Ears, nose, mouth and throat: airway patent. No inflammation Cardiovascular: Normal peripheral perfusion. Regular rate and rhythm without murmurs or extra sounds. No distended neck veins. . Respiratory: no respiratory distress. The lungs are clear to auscultation without rales wheezes or rhonchi. Breath sounds equal and present bilaterally. Gastrointestinal: Non distended. Abdomen is soft and nontender. No guarding. No rebound. No organomegaly. Musculoskeletal: No deformity. Good pulses to all extremities Neurological: No focal neurological deficit observed. alert. Cranial nerves 2-12 are intact. Print Finishing Worker strength equal. [place]ugav-er-ege[place] intact. Normal motor and sensory exam to arms and legs. Knee jerk reflexes equal and +2. Psychiatric: Cooperative. Differential diagnosis Acute coronary syndrome, pulmonary embolism, anxiety, PROCEDURES AND TREATMENTS ED Orders | ED Results MEDICAL DECISION MAKING Nursing notes and vital signs were reviewed. ED Course as of 03/30/232218Mar 30, 20231743 EKG reviewed by ER physician. Normal sinus rhythm [DR] 174 Most recent EKG 05/07/2022 looks the same [DR] 1843 XR Chest 1 View Chest x-ray reviewed by ER physician, no acute pathology [DR] 185 CT Head/Brain without contrast No acute pathology [DR] 185 Patient requests medicine for anxiety [DR] 2034 Troponin T, High Sensitivity Troponins are normal and stable [DR] 2034 CT Pulmonary Embolus with IV contrast 1. Mild left atrial dilation. 2. Minor ground-glass opacities may reflect a slight pneumonitis, atypical infection, microatelectasis. 3. Incidental findings as described. [DR] 2035 CT Abd/Pelvis with IV contrast - without oral contrast 1. No acute findings. 2. Incidental findings include cholecystectomy, hysterectomy, lumbar posterior fixation. [DR] 2037 Continued complaint of chest heaviness but now resting comfortably. Will obtain a 3 hour troponin and continue observation. Patient also notes that she had a coughing illness about 2 weeks ago for which she was treated withTessalon Perles possibly explaining the question of slight pneumonitis in the lungs [DR] 2216 Patient feels better and requests discharge. Workup so far has been unremarkable. Her 3 hour troponin remained stable. I believe she can safely go home. [DR] ED Course User Index [] Lemuel Gonzales MD Amount and/or Complexity of Data Reviewed Labs: ordered. Decision-making details documented in ED Course. Radiology: ordered. Decision-making details documented in ED Course. ECG/medicine tests: ordered. Risk Prescription drug management. Clinical Impressions Chest pain Disposition Discharged. The patient's condition at disposition was: stable. Lemuel Gonzales * Marian Judge RN - 03/30/2023 5:33 PM EST Pt arrives via [facility] for chest pain. Pt states that she was driving around 1545 and started feeling tired. Pt pulled over to have drive and developed midsternal chest pain. Pain then movedto left arm, and then whole body. Pt received 324mg aspirin and 1 nitro en route. Pt states that pain was relieved by nitro and then came back. documented in this encounter Miscellaneous Notes * Pt Handout (on AVS) - Lemuel Gonzales MD - 03/30/2023 10:18 PM EST Images from the original note were not included. [id number] Uncertain Causes of Chest Pain Chest pain can happen for a number of reasons. Sometimes the cause can't be determined. If your condition does not seem serious, and your pain does not appear to be coming from your heart, your healthcare provider may recommend watching it closely. Sometimes the signs of a serious problem take moretime to appear. Many problems not related to your heart can cause chest pain. These include: Musculoskeletal. Costochondritis is an inflammation of the tissues around the ribs that can occur from trauma or overuse injuries, or a strain of the muscles of the chest wall. Respiratory. Pneumonia, collapsed lung (pneumothorax), or inflammation of the lining of the chest and lungs (pleurisy). Gastrointestinal. Esophageal reflux, heartburn, ulcers, or gallbladder disease. Anxiety and panic disorders Nerve compression and inflammation Rare problems such as aortic aneurysm or aortic dissection (a swelling of the large artery coming out of the heart or a tear in the wall of the artery), or pulmonary embolism (a blood clot in the lungs). Home care After your visit, follow these recommendations: Rest today and avoid strenuous activity. Take any prescribed medicine as directed. Be aware of any recurrent chest pain and notice any changes Follow-up care Follow up with your healthcare provider if you don't start to feel better within 24 hours, or as advised. Call 911 Call 911 if any of these occur: A change in the type of pain: if it feels different, becomes more severe, lasts longer, or begins to spread into your shoulder, arm, neck, jaw or back Shortness of breath or increased pain with breathing Weakness, dizziness, or fainting Rapid heartbeat Crushing sensation in your chest Coughing up more than a small amount of blood. When to seek medical advice Call your healthcare provider right away if any of the following occur: Cough with dark colored sputum (phlegm) or small amount of blood Fever of 100.4F (38C) or higher, or as directed by your healthcare provider Swelling, pain or redness in one leg Last Reviewed Date: 02/07/202119995288-7002 The [employer]. All rights reserved. This information is not intended as a substitute for professional medical care. Always follow your healthcare professional's instructions. * ED Rail Detector Car Operator Note - Renae Horan RN - 03/30/2023 5:49 PM EST Pt is having chest pain "tightness", starting 2-3 hours ago. Stats "it feels like someone is sitting on my chest". Pain radiates down right side, states her whole left side is throbbing. Pt is complaining of bad headache. Pt tearful and anxious during assessment. Pt has been sick with cough and congestion. Pt has history of "mini stroke" and back surgery for which she takes oxycodone. documented in this encounter Plan of Treatment Upcoming Encounters Date Type Department Care Team (Late st Contact Info) Description 04/01/2023 2:40 PM EST Office Visit [facility], [place] [address] [phone] Caitlin López MD [address] [address] 04/08/2023 8:30 AM EST [facility], [place] [address] [phone] [facility] [address] [address] 06/14/2023 11:20 AM EDT [facility] [address] [phone] Carlitos Rain MD [address] [address] 01/09/2024 10:30 AM EST Appointment Radiology, [place] [address] [id number] Scheduled Procedures Name Priority Associated Diagnoses Date/Ti me COLONOSCOPY FLEXIBLE PROXIMA L DIAGNOSTIC Recall Screening for colon cancer Health Maintenance Due Date Last Done Comments DISCUSS TOBACCO CESSATION (REFER TO SMARTSET #3291) 1975 COVID-19 Vaccine (2022- season) 2022 Hepatitis B (3 of 3 - 19+ 3-dose series) 02/04/2023 12/10/2022, 06/02/2022 COLONOSCOPY-ANNUAL AGES 18-100 04/08/2023 04/07/2022, 04/07/2022, 12/28/2016 HbA1c 05/13/2023 11/11/2022, 04/07/2022, 03/21/2022 Albumin/Creatinine Ratio 06/03/2023 06/02/2022 Diabetic Foot [...] Procedure Name Priority Date/Time Associated Diagnosis Comments TROPONIN T, HIGH SENSITIVITY STAT 03/30/2023 9:34 PM EST TROPONIN T, HIGH SENSITIVITY STAT 03/30/2023 8:[address] PULMONARY EMBOLUS W CONTRAST STAT 03/30/2023 7:[address] ABD/PELVIS W IV CONTRAST - WO ORAL CONTRAST Routine 03/30/2023 7:52 PM EST XR CHEST 1 VIEW STAT 03/30/2023 6:[address] HEAD/BRAIN WO CONTRAST STAT 03/30/2023 6:32 PM EST DIFFERENTIAL, AUTOMATED STAT 03/30/2023 6:11 PM EST TROPONIN T, HIGH SENSITIVITY STAT 03/30/2023 6:11 PM EST BNP (NT-PROBNP) STAT 03/30/2023 6:11 PM EST BASIC METABOLIC PANEL STAT 03/30/2023 6:11 PM EST D-DIMER STAT 03/30/2023 6:11 PM EST CBC STAT 03/30/2023 6:11 PM EST PT INR STAT 03/30/2023 6:11 PM EST CBC STAT 03/30/2023 6:11 PM EST documented in this encounter Results * TROPONIN T, HIGH SENSITIVITY (03/30/2023 9:34 PM EST) Troponin T, High Sensitivity <6 <=14 ng/L 03/30/2023 9:54 PM EST LAB[facility]ATORY [facility] Blood Venous blood specimen / Unknown Venipuncture / Unknown 03/30/2023 9:34 PM EST 03/30/2023 9:36 PM EST Lemuel Gonzales MD LAB BLOOD ORDERABLES Performing Organization Address City/State/[facility] Co de Phone Number LABORATORY [address] [address] * TROPONIN T, HIGH SENSITIVITY (03/30/2023 8:02 PM EST) Troponin T, High Sensitivity <6 <=14 ng/L 03/30/2023 8:25 PM EST [facility] Blood Venous blood specimen / Unknown Venipuncture / Unknown 03/30/2023 8:02 PM EST 03/30/2023 8:06 PM EST Lemuel Gonzales MD LAB BLOOD [place] [address] * CT ABD/PELVIS W IV CONTRAST - WO ORAL CONTRAST (03/30/2023 7:52 PM EST) Anatomical Region Laterality Modality Body, Abdomen, Pelvis Computed T omography 03/30/2023 7:40 PM EST Impressions 03/30/2023 8:29 PM EST IMPRESSION: 1. Mild left atrial dilation. 2. Minor ground-glass opacities may reflect a slight pneumonitis, atypical infection, microatelectasis. 3. Incidental findings as described. PROCEDURE INFORMATION: Exam: CT Abdomen And Pelvis With Contrast Exam date and time: 03/30/2023 19:40 Age: 47 years old Clinical indication: Abdominal pain; Epigastric; Angina pectoris; Patient HX: Chest pain with elevated d-dimer TECHNIQUE: Imaging protocol: Computed tomography of the abdomen and pelvis with contrast. Radiation optimization: All CT scans at this facility use at least one of these dose optimization techniques: automated exposure control; mA and/or kV adjustment per patient size (includes targeted exams where dose is matched to clinical indication); or iterative reconstruction. Contrast material: OPTIRAY 350; Contrast volume: 100 ml; Contrast route: INTRAVENOUS (IV); COMPARISON: CT ABD/PELVIS W IV CONTRAST - WO ORAL CONTRAST 09/19/2022 09:17 FINDINGS: Liver: No hepatic masses. Gallbladder and bile ducts: Cholecystectomy. Mild intrahepatiic and extrahepatic biliary dilation most compatible with benign so-called reservoir effect in the setting of cholecystectomy. Pancreas: No ductal dilation. No masses. Spleen: No splenomegaly or focal lesions. Adrenal glands: No mass. Kidneys and ureters: No hydronephrosis. No renal masses. Stomach and bowel: Moderate colonic stool burden. No colitis or diverticular disease. No focal pathology in the small bowel. Appendix: No evidence of appendicitis. Intraperitoneal space: No free air. No significant fluid collection. Vasculature: No abdominal aortic aneurysm. Lymph nodes: No significantly enlarged lymph nodes. Urinary bladder: Unremarkable as visualized. Reproductive: Hysterectomy. Bones/joints: Posterior fixation L1 through L5 with disc spacers, multilevel laminotomy defects, hardware intact. No acute fracture or subluxation. Soft tissues: Mild dependent subcutaneous edema. IMPRESSION: 1. No acute findings. 2. Incidental findings include cholecystectomy, hysterectomy, lumbar posterior fixation. THIS DOCUMENT HAS BEEN ELECTRONICALLY SIGNED BY ALEJANDRINA ASCENCIO MD Narrative 03/30/2023 8:29 PM EST PROCEDURE INFORMATION: Exam: CTA Chest With Contrast Exam date and time: 03/30/2023 19:40 Age: 47 years old Clinical indication: Abdominal pain; Epigastric; Angina pectoris; Patient HX: Chest pain with elevated d-dimer TECHNIQUE: Imaging protocol: Computed tomographic angiography of the chest with contrast. Exam focused on the arteries. 3D rendering (Not supervised by radiologist): MIP and/or 3D reconstructed images were created x the technologist. Radiation optimization: All CT scans at this facility use at least one of these dose optimization techniques: automated exposure control; mA and/or kV adjustment per patient size (includes targeted exams where dose is matched to clinical indication); or iterative reconstruction. Contrast material: OPTIRAY 350; Contrast volume: 100 ml; Contrast route: INTRAVENOUS (IV); COMPARISON: CT PULMONARY EMBOLUS W CONTRAST 03/30/2023 19:40 FINDINGS: Pulmonary arteries: No pulmonary emboli. Aorta: No aortic aneurysm. No aortic dissection. Thyroid: 5 mm right thyroid nodule, no dedicated imaging follow up indicated in the absence of clinically suspicious findings. Lungs: Minimal central pulmonary ground-glass opacities, right greater than left. No airspace consolidation. Pleural spaces: No pneumothorax. No pleural effusion. Heart: Mild left atrial dilation. Lymph nodes: No enlarged lymph nodes. Bones/joints: Posterior fixation T10-T11, hardware intact. Disc spacer intact. No acute fracture or subluxation. Soft tissues: No suspicious lesions. Procedure Note Alejandrina Ascencio MD - 03/30/2023 PROCEDURE INFORMATION: Exam: CTA Chest With Contrast Exam date and time: 03/30/2023 19:40 Age: 47 years old Clinical indication: Abdominal pain; Epigastric; Angina pectoris; PatientHX: Chest pain with elevated d-dimer TECHNIQUE: Imaging protocol: Computed tomographic angiography of the chest withcontrast. Exam focused on the arteries. 3D rendering (Not supervised by radiologist): MIP and/or 3D reconstructed images were created x the technologist. Radiation optimization: All CT scans at this facility use at least one ofthese dose optimization techniques: automated exposure control; mA and/or kV adjustment per patient size (includes targeted exams where dose is matchedto clinical indication); or iterative reconstruction. Contrast material: OPTIRAY 350; Contrast volume: 100 ml; Contrast route: INTRAVENOUS (IV); COMPARISON: CT PULMONARY EMBOLUS W CONTRAST 03/30/2023 19:40 FINDINGS: Pulmonary arteries: No pulmonary emboli. Aorta: No aortic aneurysm. No aortic dissection. Thyroid: 5 mm right thyroid nodule, no dedicated imaging follow upindicated in the absence of clinically suspicious findings. Lungs: Minimal central pulmonary ground-glass opacities, right greaterthan left. No airspace consolidation. Pleural spaces: No pneumothorax. No pleural effusion. Heart: Mild left atrial dilation. Lymph nodes: No enlarged lymph nodes. Bones/joints: Posterior fixation T10-T11, hardware intact. Disc spacerintact. No acute fracture or subluxation. Soft tissues: No suspicious lesions. IMPRESSION IMPRESSION: 1. Mild left atrial dilation. 2. Minor ground-glass opacities may reflect a slight pneumonitis,atypical infection, microatelectasis. 3. Incidental findings as described. PROCEDURE INFORMATION: Exam: CT Abdomen And Pelvis With Contrast Exam date and time: 03/30/2023 19:40 Age: 47 years old Clinical indication: Abdominal pain; Epigastric; Angina pectoris; PatientHX: Chest pain with elevated d-dimer TECHNIQUE: Imaging protocol: Computed tomography of the abdomen and pelvis withcontrast. Radiation optimization: All CT scans at this facility use at least one ofthese dose optimization techniques: automated exposure control; mA and/or kV adjustment per patient size (includes targeted exams where dose is matchedto clinical indication); or iterative reconstruction. Contrast material: OPTIRAY 350; Contrast volume: 100 ml; Contrast route: INTRAVENOUS (IV); COMPARISON: CT ABD/PELVIS W IV CONTRAST - WO ORAL CONTRAST 09/19/2022 09:17 FINDINGS: Liver: No hepatic masses. Gallbladder and bile ducts: Cholecystectomy. Mild intrahepatiic and extrahepatic biliary dilation most compatible with benign so-calledreservoir effect in the setting of cholecystectomy. Pancreas: No ductal dilation. No masses. Spleen: No splenomegaly or focal lesions. Adrenal glands: No mass. Kidneys and ureters: No hydronephrosis. No renal masses. Stomach and bowel: Moderate colonic stool burden. No colitis ordiverticular disease. No focal pathology in the small bowel. Appendix: No evidence of appendicitis. Intraperitoneal space: No free air. No significant fluid collection. Vasculature: No abdominal aortic aneurysm. Lymph nodes: No significantly enlarged lymph nodes. Urinary bladder: Unremarkable as visualized. Reproductive: Hysterectomy. Bones/joints: Posterior fixation L1 through L5 with disc spacers,multilevel laminotomy defects, hardware intact. No acute fracture or subluxation. Soft tissues: Mild dependent subcutaneous edema. IMPRESSION: 1. No acute findings. 2. Incidental findings include cholecystectomy, hysterectomy, lumbar posterior fixation. THIS DOCUMENT HAS BEEN ELECTRONICALLY SIGNED BY ALEJANDRINA ASCENCIO MD Lemuel Gonzales MD RAD CT * CT PULMONARY EMBOLUS W CONTRAST (03/30/2023 7:52 PM EST) Anatomical Region Laterality Modality Chest, Cardio, Body Computed Rodrick ography 03/30/2023 7:40 PM EST Impressions 03/30/2023 8:29 PM EST IMPRESSION: 1. Mild left atrial dilation. 2. Minor ground-glass opacities may reflect a slight pneumonitis, atypical infection, microatelectasis. 3. Incidental findings as described. PROCEDURE INFORMATION: Exam: CT Abdomen And Pelvis With Contrast Exam date and time: 03/30/2023 19:40 Age: 47 years old Clinical indication: Abdominal pain; Epigastric; Angina pectoris; Patient HX: Chest pain with elevated d-dimer TECHNIQUE: Imaging protocol: Computed tomography of the abdomen and pelvis with contrast. Radiation optimization: All CT scans at this facility use at least one of these dose optimization techniques: automated exposure control; mA and/or kV adjustment per patient size (includes targeted exams where dose is matched to clinical indication); or iterative reconstruction. Contrast material: OPTIRAY 350; Contrast volume: 100 ml; Contrast route: INTRAVENOUS (IV); COMPARISON: CT ABD/PELVIS W IV CONTRAST - WO ORAL CONTRAST 09/19/2022 09:17 FINDINGS: Liver: No hepatic masses. Gallbladder and bile ducts: Cholecystectomy. Mild intrahepatiic and extrahepatic biliary dilation most compatible with benign so-called reservoir effect in the setting of cholecystectomy. Pancreas: No ductal dilation. No masses. Spleen: No splenomegaly or focal lesions. Adrenal glands: No mass. Kidneys and ureters: No hydronephrosis. No renal masses. Stomach and bowel: Moderate colonic stool burden. No colitis or diverticular disease. No focal pathology in the small bowel. Appendix: No evidence of appendicitis. Intraperitoneal space: No free air. No significant fluid collection. Vasculature: No abdominal aortic aneurysm. Lymph nodes: No significantly enlarged lymph nodes. Urinary bladder: Unremarkable as visualized. Reproductive: Hysterectomy. Bones/joints: Posterior fixation L1 through L5 with disc spacers, multilevel laminotomy defects, hardware intact. No acute fracture or subluxation. Soft tissues: Mild dependent subcutaneous edema. IMPRESSION: 1. No acute findings. 2. Incidental findings include cholecystectomy, hysterectomy, lumbar posterior fixation. THIS DOCUMENT HAS BEEN ELECTRONICALLY SIGNED BY MD Anna Marie RIDER 03/30/2023 8:29 PM EST PROCEDURE INFORMATION: Exam: CTA Chest With Contrast Exam date and time: 03/30/2023 19:40 Age: 47 years old Clinical indication: Abdominal pain; Epigastric; Angina pectoris; Patient HX: Chest pain with elevated d-dimer TECHNIQUE: Imaging protocol: Computed tomographic angiography of the chest with contrast. Exam focused on the arteries. 3D rendering (Not supervised by radiologist): MIP and/or 3D reconstructed images were created x the technologist. Radiation optimization: All CT scans at this facility use at least one of these dose optimization techniques: automated exposure control; mA and/or kV adjustment per patient size (includes targeted exams where dose is matched to clinical indication); or iterative reconstruction. Contrast material: OPTIRAY 350; Contrast volume: 100 ml; Contrast route: INTRAVENOUS (IV); COMPARISON: CT PULMONARY EMBOLUS W CONTRAST 03/30/2023 19:40 FINDINGS: Pulmonary arteries: No pulmonary emboli. Aorta: No aortic aneurysm. No aortic dissection. Thyroid: 5 mm right thyroid nodule, no dedicated imaging follow up indicated in the absence of clinically suspicious findings. Lungs: Minimal central pulmonary ground-glass opacities, right greater than left. No airspace consolidation. Pleural spaces: No pneumothorax. No pleural effusion. Heart: Mild left atrial dilation. Lymph nodes: No enlarged lymph nodes. Bones/joints: Posterior fixation T10-T11, hardware intact. Disc spacer intact. No acute fracture or subluxation. Soft tissues: No suspicious lesions. Procedure Note Alejandrina Ascencio MD - 03/30/2023 PROCEDURE INFORMATION: Exam: CTA Chest With Contrast Exam date and time: 03/30/2023 19:40 Age: 47 years old Clinical indication: Abdominal pain; Epigastric; Angina pectoris; PatientHX: Chest pain with elevated d-dimer TECHNIQUE: Imaging protocol: Computed tomographic angiography of the chest withcontrast. Exam focused on the arteries. 3D rendering (Not supervised by radiologist): MIP and/or 3D reconstructed images were created x the technologist. Radiation optimization: All CT scans at this facility use at least one ofthese dose optimization techniques: automated exposure control; mA and/or kV adjustment per patient size (includes targeted exams where dose is matchedto clinical indication); or iterative reconstruction. Contrast material: OPTIRAY 350; Contrast volume: 100 ml; Contrast route: INTRAVENOUS (IV); COMPARISON: CT PULMONARY EMBOLUS W CONTRAST 03/30/2023 19:40 FINDINGS: Pulmonary arteries: No pulmonary emboli. Aorta: No aortic aneurysm. No aortic dissection. Thyroid: 5 mm right thyroid nodule, no dedicated imaging follow upindicated in the absence of clinically suspicious findings. Lungs: Minimal central pulmonary ground-glass opacities, right greaterthan left. No airspace consolidation. Pleural spaces: No pneumothorax. No pleural effusion. Heart: Mild left atrial dilation. Lymph nodes: No enlarged lymph nodes. Bones/joints: Posterior fixation T10-T11, hardware intact. Disc spacerintact. No acute fracture or subluxation. Soft tissues: No suspicious lesions. IMPRESSION IMPRESSION: 1. Mild left atrial dilation. 2. Minor ground-glass opacities may reflect a slight pneumonitis,atypical infection, microatelectasis. 3. Incidental findings as described. PROCEDURE INFORMATION: Exam: CT Abdomen And Pelvis With Contrast Exam date and time: 03/30/2023 19:40 Age: 47 years old Clinical indication: Abdominal pain; Epigastric; Angina pectoris; PatientHX: Chest pain with elevated d-dimer TECHNIQUE: Imaging protocol: Computed tomography of the abdomen and pelvis withcontrast. Radiation optimization: All CT scans at this facility use at least one ofthese dose optimization techniques: automated exposure control; mA and/or kV adjustment per patient size (includes targeted exams where dose is matchedto clinical indication); or iterative reconstruction. Contrast material: OPTIRAY 350; Contrast volume: 100 ml; Contrast route: INTRAVENOUS (IV); COMPARISON: CT ABD/PELVIS W IV CONTRAST - WO ORAL CONTRAST 09/19/2022 09:17 FINDINGS: Liver: No hepatic masses. Gallbladder and bile ducts: Cholecystectomy. Mild intrahepatiic and extrahepatic biliary dilation most compatible with benign so-calledreservoir effect in the setting of cholecystectomy. Pancreas: No ductal dilation. No masses. Spleen: No splenomegaly or focal lesions. Adrenal glands: No mass. Kidneys and ureters: No hydronephrosis. No renal masses. Stomach and bowel: Moderate colonic stool burden. No colitis ordiverticular disease. No focal pathology in the small bowel. Appendix: No evidence of appendicitis. Intraperitoneal space: No free air. No significant fluid collection. Vasculature: No abdominal aortic aneurysm. Lymph nodes: No significantly enlarged lymph nodes. Urinary bladder: Unremarkable as visualized. Reproductive: Hysterectomy. Bones/joints: Posterior fixation L1 through L5 with disc spacers,multilevel laminotomy defects, hardware intact. No acute fracture or subluxation. Soft tissues: Mild dependent subcutaneous edema. IMPRESSION: 1. No acute findings. 2. Incidental findings include cholecystectomy, hysterectomy, lumbar posterior fixation. THIS DOCUMENT HAS BEEN ELECTRONICALLY SIGNED BY ALEJANDRINA ASCENCIO MD Lemuel Gonzales MD RAD CT * XR CHEST 1 VIEW (03/30/2023 6:33 PM EST) Anatomical Region Laterality Modality Chest Digital Radiogra phy 03/30/2023 6:31 PM EST Impressions 03/30/2023 6:44 PM EST IMPRESSION: No acute findings. THIS DOCUMENT HAS BEEN ELECTRONICALLY SIGNED BY ANDREW TOLENTINO MD Narrative 03/30/2023 6:44 PM EST PROCEDURE INFORMATION: Exam: XR Chest Exam date and time: 03/30/2023 6:31 PM Age: 47 years old Clinical indication: Pain; Chest pressure; Additional info: Chest pain TECHNIQUE: Imaging protocol: Radiologic exam of the chest. Views: 1 view. COMPARISON: DX XR CHEST 1 VIEW 09/29/2022 10:34 AM FINDINGS: Lungs: Unremarkable. No consolidation. Pleural spaces: Unremarkable. No pleural effusion. No pneumothorax. Heart/Mediastinum: Unremarkable. No cardiomegaly. Bones/joints: Lower thoracic spinal fusion hardware. Procedure Note Andrew Tolentino MD - 03/30/2023 PROCEDURE INFORMATION: Exam: XR Chest Exam date and time: 03/30/2023 6:31 PM Age: 47 years old Clinical indication: Pain; Chest pressure; Additional info: Chest pain TECHNIQUE: Imaging protocol: Radiologic exam of the chest. Views: 1 view. COMPARISON: DX XR CHEST 1 VIEW 09/29/2022 10:34 AM FINDINGS: Lungs: Unremarkable. No consolidation. Pleural spaces: Unremarkable. No pleural effusion. No pneumothorax. Heart/Mediastinum: Unremarkable. No cardiomegaly. Bones/joints: Lower thoracic spinal fusion hardware. IMPRESSION IMPRESSION: No acute findings. THIS DOCUMENT HAS BEEN ELECTRONICALLY SIGNED BY ANDREW TOLENTINO MD Lemuel Gonzales MD RADIOLOGY ([facility]) * CT HEAD/BRAIN WO CONTRAST (03/30/2023 6:32 PM EST) Anatomical Region Laterality Modality Head Computed Tomogra phy 03/30/2023 6:25 PM EST Impressions 03/30/2023 6:44 PM EST IMPRESSION: No acute intracranial abnormality. THIS DOCUMENT HAS BEEN ELECTRONICALLY SIGNED BY ANDREW TOLENTINO MD Narrative 03/30/2023 6:44 PM EST PROCEDURE INFORMATION: Exam: CT Head Without Contrast Exam date and time: 03/30/2023 6:25 PM Age: 47 years old Clinical indication: Headache; Patient HX: Brought to ED for chest pain. Has cough and congestion. Given asa and nitro in route. Now has h/a. TECHNIQUE: Imaging protocol: Computed tomography of the head without contrast. Radiation optimization: All CT scans at this facility use at least one of these dose optimization techniques: automated exposure control; mA and/or kV adjustment per patient size (includes targeted exams where dose is matched to clinical indication); or iterative reconstruction. COMPARISON: CT HEAD/BRAIN W WO CON 06/28/2017 8:08 AM FINDINGS: Brain: Normal. No hemorrhage. Unremarkable white matter. No mass effect. Cerebral ventricles: No ventriculomegaly. Paranasal sinuses: Visualized sinuses are unremarkable. No fluid levels. Mastoid air cells: Visualized mastoid air cells are well aerated. Bones/joints: Unremarkable. No acute fracture. Soft tissues: Unremarkable. Procedure Note Andrew Tolentino MD - 03/30/2023 PROCEDURE INFORMATION: Exam: CT Head Without Contrast Exam date and time: 03/30/2023 6:25 PM Age: 47 years old Clinical indication: Headache; Patient HX: Brought to ED for chest pain.Has cough and congestion. Given asa and nitro in route. Now has h/a. TECHNIQUE: Imaging protocol: Computed tomography of the head without contrast. Radiation optimization: All CT scans at this facility use at least one ofthese dose optimization techniques: automated exposure control; mA and/or kV adjustment per patient size (includes targeted exams where dose is matchedto clinical indication); or iterative reconstruction. COMPARISON: CT HEAD/BRAIN W WO CON 06/28/2017 8:08 AM FINDINGS: Brain: Normal. No hemorrhage. Unremarkable white matter. No mass effect. Cerebral ventricles: No ventriculomegaly. Paranasal sinuses: Visualized sinuses are unremarkable. No fluid levels. Mastoid air cells: Visualized mastoid air cells are well aerated. Bones/joints: Unremarkable. No acute fracture. Soft tissues: Unremarkable. IMPRESSION IMPRESSION: No acute intracranial abnormality. THIS DOCUMENT HAS BEEN ELECTRONICALLY SIGNED BY ANDREW TOLENTINO MD Lemuel Gonzales MD RAD CT * DIFFERENTIAL, AUTOMATED (03/30/2023 6:11 PM EST) WBC 5.83 4.00 - 10.80 K/uL 03/30/2023 6:18 PM EST [facility] Neutrophils % 44.6 40.0 - 75.0 % 03/30/2023 6:18 PM EST [facility] Lymphocytes % 41.7 18.0 - 42.0 % 03/30/2023 6:18 PM EST [facility] Monocytes % 8.2 1.0 - 11.0 % 03/30/2023 6:18 PM EST [facility] Eosinophils % 4.3 0.0 - 6.0 % 03/30/2023 6:18 PM EST [facility] Basophils % 0.9 0.0 - 2.0 % 03/30/2023 6:18 PM EST [facility] Immature Granulocytes % 0.3 0.0 - 2.0 % 03/30/2023 6:18 PM EST [facility] Absolute Neutrophils 2.60 1.80 - 7.70 K/uL 03/30/2023 6:18 PM EST [facility] Absolute Lymphocytes 2.43 1.00 - 4.80 K/ul 03/30/2023 6:18 PM EST [facility] Absolute Monocytes 0.48 0.00 - 1.10 K/uL 03/30/2023 6:18 PM EST [facility] Absolute Eosinophils 0.25 0.00 - 0.70 K/uL 03/30/2023 6:18 PM EST [facility] Absolute Basophils 0.05 0.00 - 0.20 K/uL 03/30/2023 6:18 PM EST LABORATORY [facility] Absolute Immature Granulocytes 0.02 0.00 - 0.20 K/uL 03/30/2023 6:18 PM EST LAB[facility] Blood Venous blood specimen / Unknown Venipuncture / Unknown 03/30/2023 6:11 PM EST 03/30/2023 6:15 PM EST Lemuel Gonzales MD LAB BLOOD ORDERABLES Performing Organization Address City/State/[facility] Co de Phone Number LABORATORY [address] [address] * (ABNORMAL) CBC (03/30/2023 6:11 PM EST) Pathologist [facility] [place] WBC 5.83 4.00 - 10.80 K/uL 03/30/2023 6:18 PM EST LAB[facility]ATORY [facility] RBC 4.06 3.85 - 5.15 M/uL 03/30/2023 6:18 PM EST [facility] HGB 13.3 12.0 - 15.3 g/dL 03/30/2023 6:18 PM EST LAB[facility] HCT 40.4 36.0 - 45.2 % 03/30/2023 6:18 PM EST [facility] MCV 99.5 81.5 - 97.5 fL 03/30/2023 6:18 PM EST LAB[facility]ATORY [facility] MCH 32.8 27.0 - 34.0 pg 03/30/2023 6:18 PM EST LAB[facility]ATORY [facility] MCHC 32.9 32.0 - 36.0 g/dL 03/30/2023 6:18 PM EST LAB[facility]ATORY [facility] RDW 13.2 11.5 - 15.5 % 03/30/2023 6:18 PM EST LABORATORY [facility] PLT 128(L) 140 - 400 K/uL 03/30/2023 6:18 PM EST LAB[facility]ORY [facility] MPV 11.9 6.6 - 11.1 fL 03/30/2023 6:18 PM EST LAB[facility] nRBCs 0 <=0 /100 WBCs 03/30/2023 6:18 PM EST LAB[facility] Blood Venous blood specimen / Unknown Venipuncture / Unknown 03/30/2023 6:11 PM EST 03/30/2023 6:15 PM EST Lemuel Gonzales MD LAB BLOOD ORDERABLES LABORATORY [address] [address] * (ABNORMAL) D-DIMER (03/30/2023 6:11 PM EST) [facility] D-Dimer 0.65(H) <0.50 ug/mL FEU 03/30/2023 6:43 PM EST LAB[facility]ATORY [facility] Blood Venous blood specimen / Unknown Venipuncture / Unknown 03/30/2023 6:11 PM EST 03/30/2023 6:15 PM EST Narrative LABORATORY [facility] - 03/30/2023 6:43 PM EST Rheumatoid factor at a level above 50 [...] definitively correlate with clinical severity of disease. Lemuel Gonzales MD LAB BLOOD ORDERABLES Performing Organization Address [facility] de Phone Number LABORATORY [address] [address] * BNP, NT-PRO (03/30/2023 6:11 PM EST) BNP, NT-Pro 53 <300 pg/mL 03/30/2023 6:51 PM EST LAB[facility] Blood Venous blood specimen / Unknown Venipuncture / Unknown 03/30/2023 6:11 PM EST 03/30/2023 6:15 PM EST Narrative LABORATORY [facility] - 03/30/2023 6:51 PM EST Exclude Heart Failure: <300 pg/mL Diagnose Heart Failure: Age <50 yr: >450 pg/mL 50-75 yr: >900 pg/mL >75 yr: >1800 pg/mL GFR is 30-59 mL/min: >1200 pg/mL or Age-adjusted values GFR <30 mL/min: do not use, not reliable Prognostic threshold: 1000 pg/mL Lemuel Gonzales MD LAB BLOOD ORDERABLES Performing Organization Address [facility] de Phone Number LABORATORY [address] [address] * BASIC METABOLIC PANEL (03/30/2023 6:11 PM EST) Pathologist [facility] [place] BUN 13 6 - 20 mg/dL 03/30/2023 6:51 PM EST LAB[facility] Creatinine 0.9 0.5 - 1.0 mg/dL 03/30/2023 6:51 PM EST LAB[facility] Estimated Glomerular Filtration Rate 83 >=60 mL/min 03/30/2023 6:51 PM EST LAB[facility]ORY [facility] Comment:eGFR is calculated b ased on the CKD-EPI 2020 equation Sodium 139 135 - 146 mmol/L 03/30/2023 6:51 PM EST [facility] Potassium 5.1 3.5 - 5.1 mmol/L 03/30/2023 6:51 PM EST [facility] Comment:Result may be falsel y elevated due to hemolysis. Chloride 106 98 - 107 mmol/L 03/30/2023 6:51 PM EST LAB[facility] CO2 23 22 - 32 mmol/L 03/30/2023 6:51 PM EST LAB[facility] Anion Gap 10 7 - 15 mmol/L 03/30/2023 6:51 PM EST [facility] Glucose 81 70 - 120 mg/dL 03/30/2023 6:51 PM EST [facility] Calcium 8.8 8.4 - 10.2 mg/dL 03/30/2023 6:51 PM EST [facility]ORY [facility] Blood Venous blood specimen / Unknown Venipuncture / Unknown 03/30/2023 6:11 PM EST 03/30/2023 6:15 PM EST Lemuel Gonzales MD LAB BLOOD ORDERABLES Performing Organization Address [facility] de Phone Number LABORATORY [address] [address] * PT INR (03/30/2023 6:11 PM EST) Prothrombin Time 12.1 11.6 - 15.2 seconds 03/30/2023 6:40 PM EST LAB[facility]ATORY [facility] INR 0.9 0.8 - 1.2 03/30/2023 6:40 PM EST LAB[facility] Blood Venous blood specimen / Unknown Venipuncture / Unknown 03/30/2023 6:11 PM EST 03/30/2023 6:15 PM EST Narrative LAB[facility]ATORY [facility] - 03/30/2023 6:40 PM EST Warfarin Therapy INR: 2.0-3.0 conventional anticoagulation INR: 2.5-3.5 high intensity anticoagulation Lemuel Gonzales MD LAB BLOOD ORDERABLES Performing Organization Address [facility] Co de Phone Number LABORATORY [address] [address] * TROPONIN T, HIGH SENSITIVITY (03/30/2023 6:11 PM EST) Troponin T, High Sensitivity <6 <=14 ng/L 03/30/2023 6:51 PM EST LAB[facility]ATORY [facility] Blood Venous blood specimen / Unknown Venipuncture / Unknown 03/30/2023 6:11 PM EST 03/30/2023 6:15 PM EST Lemuel Gonzales MD LAB BLOOD ORDERABLES LABORATORY [address] [address] documented in this encounter Visit Diagnoses Diagnosis Chest pain Chest pain, unspecified documented in this encounter Administered Medications Inactive Administered Medications - up to 3 most recent administrations Medication Order MAR Action Action Date Dose Rate Site diazePAM (Valium) inj 5 mg 5 mg, Intravenous, ONCE, On Tue03/30/23 at 1930, For 1 dose Given 03/30/2023 6:57 PM EST 5 mg Ioversol (Optiray 350) 74 % inj 100 mL 100 mL, Intravenous, ONCE, On Tue03/30/23 at 2030, For 1 dose, Radiology Medication Routing (Non-IR) Given 03/30/2023 7:53 PM EST 100 mL Morphine Sulfate (PF) inj 4 mg 4 mg, IV Push, ONCE, On Tue03/30/23 at 1830, For 1 dose Given 03/30/2023 6:18 PM EST 4 mg Morphine Sulfate (PF) inj 4 mg 4 mg, IV Push, ONCE, On Tue03/30/23 at 1915, For 1 dose Given 03/30/2023 6:44 PM EST 4 mg ondansetron (Zofran) inj 4 mg 4 mg, IV Push, ONCE, On Tue03/30/23 at 1830, For 1 dose Given 03/30/2023 6:18 PM EST 4 mg documented in this encounter Active and Recently Administered Medications Times are shown in EST. Scheduled Medication Order 03/28/2023 03/29/2023 03/30/2023 diazePAM (Valium) inj 5 mg (COMPLETED) 5 mg, Intravenous, ONCE, On Tue03/30/23 at 1930, For 1 dose 1857 (Given - Provid er: Renae Horan RN) Ioversol (Optiray 350) 74 % inj 100 mL (COMPLETED) 100 mL, Intravenous, ONCE, On Tue03/30/23 at 2030, For 1 dose, Radiology Medication Routing (Non-IR) 1952 (Given - Provid er: Amber Jj, RT) Morphine Sulfate (PF) inj 4 mg (COMPLETED) 4 mg, IV Push, ONCE, On Tue03/30/23 at 1830, For 1 dose 1817 (Given - Provid er: Renae Horan, LUZ) Morphine Sulfate (PF) inj 4 mg (COMPLETED) 4 mg, IV Push, ONCE, On Tue03/30/23 at 1915, For 1 dose 1843 (Given - Provid er: Renae Horan, LUZ) ondansetron (Zofran) inj 4 mg (COMPLETED) 4 mg, IV Push, ONCE, On Tue03/30/23 at 1830, For 1 dose 1817 (Given - Provid er: Renae Horan RN) documented in this encounter Care Teams Engine Generator Assembler Relationship Specialty Start Date End Date Carlitos Rain MD [address] [facility] [place] [phone] PCP - General Family Medicine 02/18/22 documented as of this encounter
--- OUTSIDE RECORDS SUMMARY | 2023-04-16 10:49 | External Medical Summary ---
Author Name Unknown Address Unknown Organization K1F:LABORATORY [facility] - [address] [place] [address] Laboratory Report Ordering Provider Test Date Status MARTINESELVIN 03/30/2023 18:11:17 Final Exclude Heart Failure: <300 pg/mL
Diagnose Heart Failure:
Age <50 yr: >450 pg/mL
50-75 yr: >900 pg/mL
>75 yr: >1800 pg/mL
GFR is 30-59 mL/min: >1200 pg/mL or Age- adjusted values
GFR <30 mL/min: do not use, not reliable

Prognostic threshold: 1000 pg/mL Observation Date Value Abnormality Reference (Units ) Status BNP, Pro-hormone 03/30/2023 18:11:17 53 <30 0 (pg/mL) Final Performing Location LABORATORY [facility] - [address] [place] [address]
--- OUTSIDE RECORDS SUMMARY | 2023-04-16 10:49 | External Medical Summary | Summary of Care ---
Author Name Unknown Organization [facility] Address [address] [place] [address] Phone [phone] Care Team Providers Care Human Resources Safety Manager Name Role Phone Carlitos Rain MD Primary Care Provider Encounter Details Date Type Department Care Team (Late st Contact Info) Description 04/01/2023 Telephone [facility] [address] [facility] [place] [address] Caitlin López MD [facility] [place] [address] Allergies Active Allergy Reactions Criticality Noted [...] hemoglobin A1c goal of less than 7.0% ([facility]) Use for injections. Injects trulicity once weekly 100 Each 1 03/26/2022 Active OneTouch Verio In Vitro Strip (Glucose Blood)Indications:Typ e 2 diabetes mellitus with hemoglobin A1c goal of less than 8.0% (HCC) Use up to 4 times a day E11.9 400 Strip 2 04/29/2022 Active OneTouch Delica Plus [id number]: Type 2 diabetes mellitus with hemoglobin A1c [...] yrs 12/10/2022,06/02/2022 Pneumococcal Conjugate Vacci ne, 20-valent ([id number]) 04/14/2022 Pneumococcal Polysaccharide PPV23 (Pneumovax) 07/28/2020 Seasonal [...] Description 04/04/2023 12:30 PM EST Appointment Radiology, [address] [place] [address] 04/08/2023 8:30 AM EST Telemedicine Pharmacy, [place] [address] [address] [place], [facility] [place] [address] 04/25/2023 2:00 PM EDT Office Visit [facility] [address] [phone] Caitlin López MD [address] [facility] [place] [address] 04/27/2023 8:45 AM EDT Appointment Radiology, [address] [place] [address] 05/26/2023 1:00 PM EDT Appointment Cardiac Studies, [facility] [address] [place] [address] 06/14/2023 11:20 AM EDT Office Visit Family Practice, [place] [address] [phone] Carlitos Rain MD [address] [address] 01/09/2024 10:30 AM EST Appointment Radiology, [place] [address] [address] Scheduled Procedures Name Priority Associated Diagnoses Date/Ti me COLONOSCOPY FLEXIBLE PROXIMA L DIAGNOSTIC Recall Screening for colon cancer Health Maintenance Due Date Last Done Comments DISCUSS TOBACCO CESSATION (REFER TO SMARTSET #3526) 1975 COVID-19 Vaccine ( season) 2022 Hepatitis [...] filedocumented as of this encounter Care Teams Human Resources Safety Manager Relationship Specialty Start Date End Date Carlitos Rain MD [address] [address] PCP - General Family Medicine 02/18/22 documented as of this encounter
--- OUTSIDE RECORDS SUMMARY | 2023-04-16 10:49 | External Medical Summary ---
Author Name Unknown Address Unknown Organization K1F:LABORATORY [facility] - [address] [place] [address] Laboratory Report Ordering Provider Test Date Status RADHA FARLEYLEE 03/30/2023 18:11:17 Final Observation Date Value Abnormality Reference (Units ) Status SYNC LEUKOCYTES IN BLOOD BY AUTOMATED COUNT 03/30/2023 18:11:17 5.83 4.00-10.80 (K/uL) Final Segs 03/30/2023 18:11:17 44.6 40.0-75.0 (%) Final Lymphs % 03/30/2023 18:11:17 41.7 18.0-42.0 (%) Final Monos 03/30/2023 18:11:17 8.2 1.0-11.0 (%) Final Eosinophils 03/30/2023 18:11:17 4.3 0.0-6.0 (%) Final Basos 03/30/2023 18:11:17 0.9 0.0-2.0 (%) Final Immature Granulocyte, Percent 03/30/2023 18:11:17 0.3 0.0-2.0 (%) Final Absolute Segs 03/30/2023 18:11:17 2.60 1.80-7.70 (K/uL) Final Lymphs, absolute 03/30/2023 18:11:17 2.43 1.00-4.80 (K/ul) Final Monos, Abs 03/30/2023 18:11:17 0.48 0.00-1.10 (K/uL) Final Eos, Abs 03/30/2023 18:11:17 0.25 0.00-0.70 (K/uL) Final Basos, Abs 03/30/2023 18:11:17 0.05 0.00-0.20 (K/uL) Final Immature Granulocytes, Number 03/30/2023 18:11:17 0.02 0.00-0.20 (K/uL) Final Performing Location LABORATORY [facility] - [address] [address]
--- OUTSIDE RECORDS SUMMARY | 2023-04-16 10:49 | External Medical Summary | Summary of Care ---
Author Name Unknown Organization [facility] Address [address] [place] [address] Phone [phone] Care Team Providers Care Medical Office Administrator Name Role Phone Carlitos Rain MD Primary Care Provider Reason for Visit * Reason Onset Date Comments [facility]: Screening 03/31/2023 Encounter Details Date Type Department Care Team ([facility] st Contact Info) Description 03/31/2023 Telephone [facility], [facility] [address] [facility] [place] [address] [facility], Nurse [facility] [address] [place] [facility] [place] [address] [facility]: Screening Allergies Active Allergy Reactions Criticality Noted Date [...] A1c goal of less than 7.0% ([facility]) Use for injections. Injects trulicity once weekly 100 Each 1 03/26/2022 Active OneTouch Verio In Vitro Strip (Glucose Blood)Indications:Type 2 diabetes mellitus with hemoglobin A1c goal of less than 8.0% (HCC) Use up to 4 times a day E11.9 400 Strip 2 04/29/2022 Active OneTouch Delica Plus [id number]:T ype 2 diabetes mellitus with hemoglobin A1c [...] yrs 12/10/2022,06/02/2022 Pneumococcal Conjugate Vacci ne, 20-valent ([id number]) 04/14/2022 Pneumococcal Polysaccharide PPV23 (Pneumovax) 07/28/2020 Seasonal [...] encounter Miscellaneous Notes * Telephone Encounter - Genny Olivarez LPN - 03/31/2023 10:47 AM EST Caren Johnson was referred as a potential candidate for enrollment for [facility]. A review of this chart was completed and: Caren does not meet criteria for enrollment into [facility]. Referral Source: [facility] Daily Referral List Criteria for Ineligibility: Not Located in Service Area Referring care team was notified via : [employer] communication Pt does reside in the [facility] service area but does not have the multiple chronic medical diagnosis needed for [facility] enrollment. documented in this encounter Plan of Treatment Upcoming Encounters Date Type Department Care Team (Late st Contact Info) Description 04/01/2023 2:40 PM EST Office Visit [facility], [place] [address] [phone] Caitlin López MD [address] [address] 04/08/2023 8:30 AM EST Telemedicine Pharmacy, [place] [address] [address] [facility] [address] [address] 06/14/2023 11:20 AM EDT [facility] [address] [phone] Carlitos Rain MD [address] [address] 01/09/2024 10:30 AM EST Appointment Radiology, [place] [address] Scheduled Procedures Name Priority Associated Diagnoses Date/Ti [...] filedocumented as of this encounter Care Teams Medical Office Administrator Relationship Specialty Start Date End Date Carlitos Rain MD [address] [address] PCP - General Family Medicine 02/18/22 documented as of this encounter
--- OUTSIDE RECORDS SUMMARY | 2023-04-16 10:49 | External Medical Summary | Summary of Care ---
Author Name Unknown Organization [facility] Address [address] [place] [address] Phone [phone] Care Team Providers Care Internet Programmer Name Role Phone Carlitos Rain MD Primary Care Provider Encounter Details Date Type Department Care Team (Late st Contact Info) Description 03/29/2023 Population Health External Data Unspecified Department Allergies Active Allergy Reactions Criticality Noted Date Comments Pollen 02/10/2022 documented as of this encounter (statuses as of 03/30/2023) Medications Medication Sig Dispensed Refills Start Date [...] Strip 2 04/29/2022 Active OneTouch Delica Plus [id number]:T ype 2 diabetes mellitus with hemoglobin A1c [...] hemoglobin A1c goal of less than 7.0% ([facility]) Inject 1.5 mg under the [...] as of this encounter (statuses as of 03/30/2023) Active Problems Problem Noted Date Diagnosed Date [...] as of this encounter (statuses as of 03/30/2023) Resolved Problems Problem Noted Date Diagnosed Date [...] as of this encounter (statuses as of 03/30/2023) Immunizations Name Administration Dates Next Due Hepatitis B, 20+ yrs 12/10/2022,06/02/2022 Pneumococcal Conjugate Vacci ne, 20-valent ([id number]) 04/14/2022 Pneumococcal Polysaccharide PPV23 (Pneumovax) 07/28/2020 Seasonal [...] Description 04/08/2023 8:30 AM EST Telemedicine Pharmacy, [place] [address] [address] [facility] [place] [address] 06/14/2023 11:20 AM EDT Office Visit Family Practice, [place] [address] [phone] Carlitos Rain MD [address] [address] 01/09/2024 10:30 AM EST Appointment Radiology, [place] [address] Scheduled Procedures Name Priority Associated Diagnoses Date/Ti me COLONOSCOPY FLEXIBLE PROXIMA L DIAGNOSTIC Recall Screening for colon cancer Health Maintenance Due Date Last Done Comments DISCUSS TOBACCO CESSATION (REFER TO SMARTSET #9075) 1975 COVID-19 Vaccine ( - 2022-24 season) [...] Screening 02/17/2024 02/16/2023 Lipid Panel 03/21/2027 03/21/2022, 10/2021, 02/19/2019, Additional [...] filedocumented as of this encounter Care Teams Internet Programmer Relationship Specialty Start Date End Date Carlitos Rain MD [address] [phone] PCP - General Family Medicine 02/18/22 documented as of this encounter
--- OUTSIDE RECORDS SUMMARY | 2023-04-16 10:49 | External Medical Summary | Summary of Care ---
Author Name Unknown Organization [facility] Address [address] [place] [address] Phone [phone] Care Team Providers Care Block Bolter Mule Operator Name Role Phone Carlitos Rain MD Primary Care Provider Encounter Details Date Type Department Care Team (Late st Contact Info) Description 04/01/[address] [facility] ([place], [place]) [address] [facility] [address] Caitlin López MD [facility] [address] Allergies Active Allergy Reactions Criticality Noted [...] goal of less than 7.0% ([facility]) Use for injections. Injects trulicity once weekly 100 Each 1 03/26/2022 Active OneTouch Verio In Vitro Strip (Glucose Blood)Indications:Typ e 2 diabetes mellitus with hemoglobin A1c goal of less than 8.0% (HCC) Use up to 4 times a day E11.9 400 Strip 2 04/29/2022 Active OneTouch Delica Plus [id number]: Type 2 diabetes mellitus with hemoglobin A1c [...] yrs 12/10/2022,06/02/2022 Pneumococcal Conjugate Vacci ne, 20-valent ([id number]) 04/14/2022 Pneumococcal Polysaccharide PPV23 (Pneumovax) 07/28/2020 Seasonal [...] encounter Miscellaneous Notes * Telephone Encounter - Danile Rai OSA - 04/01/2023 3:37 PM EST Please assist in scheduling pt with ENT with Audio before. documented in this encounter Plan of Treatment Upcoming Encounters Date Type Department Care Team (Late st Contact Info) Description 04/04/2023 12:30 PM EST Appointment Radiology [address] [place] [address] 04/08/2023 8:30 AM EST Telemedicine Pharmacy, [address] [place] [address] [facility] [place] [address] 04/25/2023 2:00 PM EDT [address] [phone] Caitlin López MD 21 [facility] [place] [address] 04/27/2023 8:45 AM EDT Appointment Radiology, [address] [place] [address] 05/26/2023 1:00 PM EDT Appointment Cardiac Studies, [address] [place] [address] 06/14/2023 11:20 AM EDT Office Visit [address] [place] [phone] Carlitos Rain MD [address] [place] [address] [address] 01/09/2024 10:30 AM EST Appointment Radiology, [place] [address] Scheduled Procedures Name Priority Associated Diagnoses Date/Ti me COLONOSCOPY FLEXIBLE PROXIMA L DIAGNOSTIC Recall Screening for colon cancer Health Maintenance Due Date Last Done Comments DISCUSS TOBACCO CESSATION (REFER TO SMARTSET #9073) 1975 COVID-19 Vaccine (2022- season) 2022 Hepatitis [...] filedocumented as of this encounter Care Teams Block Bolter Mule Operator Relationship Specialty Start Date End Date Carlitos Rain MD [address] [address] [phone] PCP - General Family Medicine 02/18/22 documented as of this encounter
--- OUTSIDE RECORDS SUMMARY | 2023-04-16 10:49 | External Medical Summary | Summary of Care ---
Author Name Unknown Organization [facility] Address [address] [place] [address] Phone [phone] Care Team Providers Care Machine Biller Name Role Phone Carlitos Rain MD Primary Care Provider Reason for Referral * Medication Prior Authorization - Closed Specialty Diagnoses / Procedures Referred By Contac t Referred To Contact Diagnoses Sore throat Caitlin López MD [address] [place] [address] Referral ID Status Reason Start Date Expiration Date Visits Re quested Visits Authorized [id number] Closed 999 999 * Medication Prior Authorization - Closed Specialty Diagnoses / Procedures Referred By Contac t Referred To Contact Diagnoses Constipation, unspecified constipation type Caitlin López MD [address] [place] [address] Referral ID Status Reason Start Date Expiration Date Visits Re quested Visits Authorized [id number] Closed 999 999 * Precert (Within 10 days (routine)) - Pending Review Specialty Diagnoses / Procedures Referred By Contac t Referred To Contact Radiology Diagnoses RUQ pain Abnormal CT scan Procedures MRI LIVER W WO CONTRAST Caitlin López MD 21 [place] [address] Referral ID Status Reason Start Date Expiration Date V isits Requested Visits Authorized [id number] Pending Review 04/02/2023 999 999 * Precert (Within 10 days (routine)) - Authorized Specialty Diagnoses / Procedures Referred By Contac t Referred To Contact Cardiac Studies Diagnoses History of atrial dilatation Procedures ECHO, COMPLETE (2D), TRANS-THORACIC Caitlin López MD 21 [facility] [place] [address] Referral ID Status Reason Start Date Expiration Date V isits Requested Visits Authorized [id number] Authorized Precert 04/01/2023 999 999 Reason for Visit * Reason Comments Emergency Department Follow-Up [facility] 03/30 Chest pain Encounter Details Date Type Department Care Team (Late st Contact Info) Description 04/01/2023 2:40 PM EST Office Visit [place] [address] [address] [place] [phone] Caitlin López MD 21 [facility] [place] [address] Anxiety*; Thyroid nodule; History of atrial dilatation; [...] Strip 2 04/29/2022 Active OneTouch Delica Plus [id number] :Type 2 diabetes mellitus with hemoglobin A1c [...] hemoglobin A1c goal of less than 8.0% ([facility]) Take 1 Tablet by mouth in the [...] 02/18/2023 Food insecurity 08/16/2022 03/24/2023 Overview: Per [facility] Protocol BMI 40.0-44.9, adult 02/18/2022 [...] yrs 12/10/2022,06/02/2022 Pneumococcal Conjugate Vacci ne, 20-valent ([id number]) 04/14/2022 Pneumococcal Polysaccharide PPV23 (Pneumovax) 07/28/2020 Seasonal [...] documented in this encounter Progress Notes * Caitlin López MD - 04/01/2023 2:57 PM EST Images from the original note were not included. History of Present Illness Caren Johnson is a 47 year old female that presents for Emergency Department Follow-Up ([facility] 03/30Chest pain) Post ED visit. Patient wants [...] Complaint Patient presents with Emergency Department Follow-Up [facility] 03/30 Chest pain documented in this encounter Plan of Treatment Upcoming Encounters Date Type Department Care Team (Late st Contact Info) Description 04/04/2023 12:30 PM EST Appointment Radiology[address] [place] [address] 04/08/2023 8:30 AM EST Telemedicine Pharmacy, [address] [address] [place] [place] [address] 04/25/2023 2:00 PM EDT [address] [phone] Caitlin López MD [facility] [address] 04/27/2023 8:45 AM EDT Appointment Radiology, [address] [place] [address] 05/26/2023 1:00 PM EDT Appointment Cardiac Studies, [address] [address] 06/14/2023 11:20 AM EDT Office Visit [facility] [phone] [facility]itos Rain [facility] [address] 01/09/2024 10:30 AM EST Appointment Radiology, [place] [address] Scheduled Orders Name Type Priority Associated Diagnoses Orde r Schedule US HEAD AND NECK Medical Imaging Routine Thyroid nodule Expected: 04/01/2023, Expires: 04/29/2024 ECHO, COMPLETE (2D), TRANS-THORACIC Echocardiology Routine History of atrial dilatation Expected: 04/01/2023 (Approximate), Expires: 03/31/2024 MRI LIVER W WO CONTRAST Medical Imaging Routine RUQ pain Abnormal CT scan Expected: 04/02/2023, Expires: 04/29/2024 CBC WITH WBC DIFFERENTIAL Lab Routine Low platelet count (HCC) Expected: 04/01/2023 (Approximate), Expires: 04/01/2024 Scheduled Procedures Name Priority Associated Diagnoses Date/Ti me COLONOSCOPY FLEXIBLE PROXIMA L DIAGNOSTIC Recall Screening for colon cancer Health Maintenance Due Date Last Done Comments DISCUSS TOBACCO CESSATION (REFER TO SMARTSET #8460) 1975 COVID-19 Vaccine (2022- season) 2022 Hepatitis [...] disorder with mixed anxiety and depressed mood documented in this encounter Care Teams Machine Biller Relationship Specialty Start Date End Date Carlitos Rain MD [address] [place] [phone] PCP - General Family Medicine 02/18/22 documented as of this encounter
--- OUTSIDE RECORDS SUMMARY | 2023-04-16 10:49 | External Medical Summary ---
Author Name Unknown Address Unknown Organization K01:[facility] [place] [address] [place] [address] Laboratory Report Ordering Provider Test Date Status JAMES RICHARDSON 04/04/2023 13:00:01 Final Observation Date Value Abnormality Reference (Units ) Status WBC, Total 04/04/2023 13:00:01 4.28 4.00-10.80 (K/uL) Final RBC 04/04/2023 13:00:01 4.13 3.85-5.15 (M/uL) Final Hemoglobin 04/04/2023 13:00:01 13.1 12.0-15.3 (g/dL) Final HCT 04/04/2023 13:00:01 41.0 36.0-45.2 (%) Final MCV 04/04/2023 13:00:01 99.3 81.5-97.5 (fL) Final MCH 04/04/2023 13:00:01 31.7 27.0-34.0 (pg) Final MCHC 04/04/2023 13:00:01 32.0 32.0-36.0 (g/dL) Final RDW 04/04/2023 13:00:01 13.1 11.5-15.5 (%) Final Platelets 04/04/2023 13:00:01 157 140-400 (K/uL) Final MPV 04/04/2023 13:00:01 12.3 6.6-11.1 (fL) Final Nucleated erythrocytes/100 leukocytes [Ratio] in Blood by Automated count 04/04/2023 13:00:01 0 <=0 (/100 WBCs) Final Performing Location [facility] [place] - [address] [place] [address]
--- OUTSIDE RECORDS SUMMARY | 2023-04-16 10:49 | External Medical Summary | Summary of Care ---
Author Name Unknown Organization [facility] Address [address] [place] [address] Phone [phone] Care Team Providers Care Hvac Services Professional Name Role Phone Carlitos Rain MD Primary Care Provider Encounter Details Date Type Department Care Team (Latest Contact Info) Description 03/28/2023 Medication Management [facility] [address] [place], [place] [phone] Caren Kim, [facility] [address] [place] [address] Referred for management of medication therapy* Allergies Active Allergy Reactions Criticality Noted Date [...] 7.0% ([facility]) Use for injections. Injects trulicity once weekly 100 Each 1 03/26/2022 Active OneTouch Verio In Vitro Strip (Glucose Blood)Indications:Type 2 diabetes mellitus with hemoglobin A1c goal of less than 8.0% ([facility]) Use up to 4 times a day E11.9 400 Strip 2 04/29/2022 Active OneTouch Delica Plus [id number]:T ype 2 diabetes mellitus with hemoglobin A1c [...] 02/18/2023 Food insecurity 08/16/2022 03/24/2023 Overview: Per [facility] Protocol BMI 40.0-44.9, adult 02/18/2022 [...] yrs 12/10/2022,06/02/2022 Pneumococcal Conjugate Vacci ne, 20-valent ([id number]) 04/14/2022 Pneumococcal Polysaccharide PPV23 (Pneumovax) 07/28/2020 Seasonal [...] of this encounter Progress Notes * Caren Kim, [facility] - 03/28/2023 3:29 PM EST Caren Johnson is a 47 year old female. Objective: Review of patient's allergies indicates: Allergen Reactions Pollen Current Outpatient Medications - WARNING: List may be incomplete due to filtering Medication Sig Dispense Refill oxyCODONE HCl 5 MG Oral Tablet (Oxy IR) Take 1 Tablet by mouth every 6 hours as needed for Pain, Severe. 60 Tablet 0 Pregabalin 150 MG Oral Capsule (Lyrica) Take 1 Capsule by mouth in the morning and 1 Capsule at noon and 1 Capsule before bedtime. 90 Capsule 1 metFORMIN HCl ER 500 MG Oral Tablet Extended Release 24 Hour (Glucophage XR) Take 1 Tablet by mouthin the morning. 90 Tablet 3 Acetaminophen 500 MG Oral Tablet (Tylenol) Take 2 Tablets by mouth every 6 hours as needed for Pain, Moderate. 30 Tablet 1 Cyclobenzaprine HCl 10 MG Oral Tablet (Flexeril) Take 1 Tablet by mouth in the morning and 1 Tabletat noon and 1 Tablet before bedtime. Albuterol Sulfate HFA 108 (90 Base) MCG/ACT Inhalation Aerosol Solution Inhale 2 Puffs by mouth every 4 hours as needed for Shortness of Breath or Wheezing. As needed 18 g 2 Pramipexole Dihydrochloride 0.5 MG Oral Tablet (Mirapex) Take 1 Tablet by mouth at bedtime. 30 Tablet 5 Topiramate 50 MG Oral Tablet (topAMAX) Take 1 Tablet by mouth in the morning and 1 Tablet before bedtime. 60 Tablet 5 buPROPion HCl ER (XL) 150 MG Oral Tablet Extended Release 24 Hour (Wellbutrin XL) Take 1 Tablet by mouth in the morning. 30 Tablet 5 traZODone HCl 50 MG Oral Tablet (Desyrel) Take 1 Tablet by mouth at bedtime. 30 Tablet 5 Esomeprazole Magnesium 40 MG Oral Capsule Delayed Release (NexIUM) Take 1 Capsule by mouth daily. 30-60 min prior to the first main meal of the day. 90 Capsule 1 busPIRone HCl 5 MG Oral Tablet (Buspar) Take 1 Tablet by mouth in the morning and 1 Tablet at noon and 1 Tablet before bedtime. 90 Tablet 5 Dulaglutide 1.5 MG/0.5ML Subcutaneous Solution Pen-injector (Trulicity) Inject 1.5 mg under the skin once a week. 6 mL 2 Atorvastatin Calcium 10 MG Oral Tablet (Lipitor) TAKE 1 TABLET BY MOUTH DAILY 90 Tablet 3 Vitamin D3 50 MCG (2000 UT) Oral Capsule TAKE 1 CAPSULE BY MOUTH DAILY 90 Capsule 3 Ondansetron 4 MG Oral Tablet Disintegrating Place 1 Tablet on tongue every 8 hours as needed for Nausea. dissolve on tongue. 20 Tablet 0 OneTouch Delica Plus [id number] Up to 4 times a day E11.9 400 Each 2 OneTouch Verio In Vitro Strip (Glucose Blood) Use up to 4 times a day E11.9 400 Strip 2 Alcohol Prep Pads 70 % Pad Use for injections. Injects trulicity once weekly 100 Each 1 Montelukast Sodium 10 MG Oral Tablet Take by mouth daily. cetirizine (ZYRTEC) 10 MG Tablet Take 1 Tab by mouth daily. 90 Tab 3 Immunization History Administered Date(s) Administered Hepatitis B, 20+ yrs 06/02/2022, 12/10/2022 Pneumococcal Conjugate Vaccine, 20-valent ([id number]) 04/14/2022 Pneumococcal Polysaccharide PPV23 (Pneumovax) 07/28/2020 Seasonal Influenza Vac, Quad, Cell Cult, PF, 6 Mos and Up, IM, (Flucelvax Quad) 11/17/2021 Seasonal Influenza, PF, 6 M & above, IM , (FluLaval or Fluzone) 10/13/2018, 12/10/2022 Seasonal Influenza, Split, IIV3, With Preserve, Inj 09/07/2013, 11/17/2016, 01/25/2018, 10/13/2018,11/09/2018, 11/07/2019 Seasonal Influenza, Trivalent, High Dose, No Preserve, IM 11/18/2020 TDAP (age 10 and older)(Boostrix) 07/28/2020 TMR Interventions Incomplete Medication Therapy Recommendations No medication therapy recommendations to display Completed Medication Therapy Recommendations No medication therapy recommendations to display Assessment & Plan Indication, effectiveness, safety and convenience of her medications were reviewed today. The patient's medical conditions were assessed, evaluated, and deemed meeting goals of drug therapy, with thefollowing exceptions. Additional Notes: N/A Summary Time Spent: 16-30 min Supervising pharmacist who provided the service: Caren Kim Pharm D Takeaway Information Who was the recipient of the CMR service: beneficiary Language Template for the Patient Takeaway: German I attest that I have reviewed and updated the patient's conditions, allergies, and medications to the best of my ability. Caren Kim RPh 03/28/2023, 3:29 PM documented in this encounter Miscellaneous Notes * MTM Personal Medication List - Caren Kim RPh - 03/28/2023 3:27 PM EST Medication How I take it Why I use it Prescriber Acetaminophen 500 MG Oral Tablet (Tylenol) Take 2 Tablets by mouth every 6 hours as needed for Pain, Moderate. Pain Caitlin López MD Albuterol Sulfate HFA 108 (90 Base) MCG/ACT Inhalation Aerosol Solution Inhale 2 Puffs by mouth every 4 hours as needed for Shortness of Breath or Wheezing. As needed Wheezing, shortness of breath Caitlin López MD Atorvastatin Calcium 10 MG Oral Tablet (Lipitor) TAKE 1 TABLET BY MOUTH DAILY Cholesterol Carlitos Rain MD buPROPion HCl ER (XL) 150 MG Oral Tablet Extended Release 24 Hour (Wellbutrin XL) Take 1 Tablet by mouth in the morning. Mood Mary Hyde PA-C busPIRone HCl 5 MG Oral Tablet (Buspar) Take 1 Tablet by mouth in the morning and 1 Tablet at noon and 1 Tablet before bedtime. Anxiety Carlitos Rain MD cetirizine (ZYRTEC) 10 MG Tablet Take 1 Tablet by mouth daily. Seasonal allergies Carlitos Rain MD Cyclobenzaprine HCl 10 MG Oral Tablet (Flexeril) Take 1 Tablet by mouth in the morning and 1 Tabletat noon and 1 Tablet before bedtime. Muscle relaxer Mary Hyde PA-C Dulaglutide 1.5 MG/0.5ML Subcutaneous Solution Pen-injector ([employer]) Inject 1.5 mg under the skin once a week. Diabetes Carlitos Rain MD Esomeprazole Magnesium 40 MG Oral Capsule Delayed Release (NexIUM) Take 1 Capsule by mouth daily. 30-60 min prior to the first main meal of the day. Reflux, heartburn Carlitos Rain MD metFORMIN HCl ER 500 MG Oral Tablet Extended Release 24 Hour (Glucophage XR) Take 1 Tablet by mouthin the morning. Diabetes Carlitos Rain MD Montelukast Sodium 10 MG Oral Tablet Take by mouth daily. Allergies Self Ondansetron 4 MG Oral Tablet Disintegrating Place 1 Tablet on tongue every 8 hours as needed for Nausea. dissolve on tongue. Nausea ALBERT Campbell [employer] Delica Plus [id number] Up to 4 times a day E11.9 Diabetes MD Mauricio Mcdaniels Verio In Vitro Strip (Glucose Blood) Use up to 4 times a day E11.9 Diabetes Carlitos Rain MD oxyCODONE HCl 5 MG Oral Tablet (Oxy IR) Take 1 Tablet by mouth every 6 hours as needed for Pain, Severe. Pain Carlitos Rain MD Pramipexole Dihydrochloride 0.5 MG Oral Tablet (Mirapex) Take 1 Tablet by mouth at bedtime. Restless leg syndrome Carlitos Rain MD Pregabalin 150 MG Oral Capsule (Lyrica) Take 1 Capsule by mouth in the morning and 1 Capsule at noon and 1 Capsule before bedtime. Nerve pain Carlitos Rain MD Topiramate 50 MG Oral Tablet (topAMAX) Take 1 Tablet by mouth in the morning and 1 Tablet before bedtime. Mood, nerve pain ALBERT Jarrell traZODone HCl 50 MG Oral Tablet (Desyrel) Take 1 Tablet by mouth at bedtime. Sleep ALBERT Campbell Vitamin D3 50 MCG (1999 UT) Oral Capsule TAKE 1 CAPSULE BY MOUTH DAILY Supplement Carlitos Rain MD * MTM To-Do-List - Caren Kim RPh - 03/28/2023 3:25 PM EST Images from the original note were not included. What we talked about: What I should do: The importance of taking your medication as prescribed Your medicine works best when taken as prescribed. It can be hard to remember to take daily medications. Consider making it a part of your daily routine. Pair taking your medication with something you do every day, like brushing your teeth or eating a meal. Consider setting daily alarms to help remind yourself when it is time to take your medicine. Using a pill box can also help you organize your medicines. Pill boxes allow you to fill each day slot with your daily medicine and help you track when your next dose is due. What we talked about: What I should do: Extra benefits of medicines Diabetes has the potential to effect many organs in your body, including your heart and your kidneys. Keeping your blood sugar controlled will help prevent these complications, but there are also medications that have been scientifically proven to help prevent damage to these vital organs. Statins, such as atorvastatin, help lower cholesterol levels, but have the addedbenefit of protecting your heart against heart attacks and your brain against strokes, even if yourcholesterol is controlled. RUTH inhibitors, such as lisinopril, help lower the blood pressure, but also protect kidneys from further impairment in patients with diabetes. You were prescribed this medicine for this reason but had to stop it due to low blood pressure. What we talked about: What I should do: Esomeprazole (Nexium) Medications like Nexium work to treat reflux/heartburn by lowering the amountof acid that is made in your stomach. Because most of our vitamins and minerals require the stomachto be acidic in order to absorb, using these medications can actually put us at risk of certain anemias and low bone density (osteoporosis). If there is no specific medical reason that requires you to be on it manager intermediate, we often suggest slowly working your way off of the medication. If symptoms would return, there are alternative medications like Pepcid (famotidine) that are safer to use manager intermediate instead. What we talked about: What I should do: Calcium citrate Medications like Nexium make it hard for calcium to be absorbed by your body. If you remain on this medication manager intermediate, it will be important for you to take calcium CITRATE, a specific type of calcium supplement that has the ability to absorb better in a low acid environment. Thiswill help to prevent low bone density as you age (osteoporosis). documented in this encounter Plan of Treatment Upcoming Encounters Date Type Department Care Team (Late st Contact Info) Description 04/08/2023 8:30 AM EST Telemedicine Pharmacy, [place] [address] [address] [facility] [place] [address] 06/14/2023 11:20 AM EDT Office Visit [facility], [place] [address] [phone] Carlitos Rain MD [place] [address] 01/09/2024 10:30 AM EST Appointment Radiology, [place] [address] [address] Scheduled Procedures Name Priority Associated Diagnoses Date/Ti me COLONOSCOPY FLEXIBLE PROXIMA L DIAGNOSTIC Recall Screening for colon cancer Health Maintenance Due Date Last Done Comments DISCUSS TOBACCO CESSATION (REFER TO SMARTSET #6691) 1975 COVID-19 Vaccine ( - 2022-24 season) [...] Screening 02/17/2024 02/16/2023 Lipid Panel 03/21/2027 03/21/2022, 02/10/2021, 02/19/2019, Additional history exists DTaP,Tdap,and Td Vaccines [...] as of this encounter Visit Diagnoses Diagnosis Referred for management of medication therapy- Primary Encounter for long-term (current) use of other medications documented in this encounter Care Teams Hvac Services Professional Relationship Specialty Start Date End Date Carlitos Rain MD [address] [place] [phone] PCP - General Family Medicine 02/18/22 documented as of this encounter
--- OUTSIDE RECORDS SUMMARY | 2023-04-16 10:49 | External Medical Summary ---
Author Name Unknown Address Unknown Organization K1F:[facility] - [address] [place] [address] Laboratory Report Ordering Provider Test Date Status SELVIN FARLEY 03/30/2023 18:11:17 Final Observation Date Value Abnormality Reference (Units ) Status BUN 03/30/2023 18:11:17 13 6-20 (mg/dL) Final Creatinine 03/30/2023 18:11:17 0.9 0.5-1.0 (mg/dL) Final Glomerular filtration rate/1.73 sq M.predicted [Volume Rate/Area] in Serum, Plasma or Blood by Creatinine-based formula (CKD-EPI) 03/30/2023 18:11:17 83 >=60 (mL/min) Final eGFR is calculated based on the CKD-EPI 2020 equation SODIUM 03/30/2023 18:11:17 139 135-146 (m mol/L) Final Potassium 03/30/2023 18:11:17 5.1 3.5-5.1 (m mol/L) Final Result may be falsely elevat ed due to hemolysis. Cl 03/30/2023 18:11:17 106 98-107 (mm ol/L) Final CO2 03/30/2023 18:11:17 23 22-32 (mmo l/L) Final Anion gap 03/30/2023 18:11:17 10 7-15 (mmol /L) Final Glucose 03/30/2023 18:11:17 81 70-120 (mg /dL) Final Calcium 03/30/2023 18:11:17 8.8 8.4-10.2 ( mg/dL) Final Performing Location [facility] - [address] [place] [address]
--- OUTSIDE RECORDS SUMMARY | 2023-04-16 10:50 | External Medical Summary | Summary of Care ---
Author Name Unknown Organization [facility] Address [address] [place] [address] Phone [phone] Care Team Providers Care Laundry Manager Name Role Phone Carlitos Rain MD Primary Care Provider Encounter Details Date Type Department Care Team (Late st Contact Info) Description 03/16/2023 Documentation Pharmacy, [place] [address] [place] [address] [facility] [address] [place] [address] Allergies Active Allergy Reactions Criticality Noted Date Comments Pollen 02/10/2022 documented as of this encounter (statuses as of 03/16/2023) Medications Medication Sig Dispensed Refills Start Date [...] hemoglobin A1c goal of less than 8.0% ([facility]) Use up to 4 times a day E11.9 400 Strip 2 04/29/2022 Active OneTouch Delica Plus [id number]: Type 2 diabetes mellitus with hemoglobin A1c goal of less than 8.0% (HCC) Up to 4 times a day E11.9 400 Each 2 04/29/2022 Active Ondansetron 4 MG Oral Tablet DisintegratingIndicat ions:Nausea without vomiting Place 1 Tablet on tongue every 8 hours as needed for Nausea. dissolve on tongue. 20 Tablet 0 05/19/2022 Active Additional Information Patient not taking.Reported on 02/15/2023 Esomeprazole Magnesium 40 MG Oral Capsule Delayed Release (NexIUM)Indications:G astroesophageal reflux disease, unspecified whether esophagitis present Take 1 Capsule by mouth daily. 30-60 min prior to the first main meal of the day. 90 Capsule 1 05/21/2022 Active Additional Information Patient not taking.Reported on 12/10/2022 metFORMIN HCl ER 500 MG Oral Tablet Extended Release 24 Hour (Glucophage XR)Indications:Type 2 diabetes mellitus with hemoglobin A1c goal of less than 8.0% (HCC) Take 1 Tablet by mouth in the morning. 90 Tablet 3 06/15/2022 Active Atorvastatin Calcium 10 MG Oral Tablet (Lipitor)Indications: Mixed hyperlipidemia TAKE 1 TABLET BY MOUTH DAILY 90 Tablet 3 10/06/2022 Active Vitamin D3 50 MCG (2000 UT) Oral Capsule TAKE 1 CAPSULE BY MOUTH DAILY 90 Capsule 3 10/06/2022 Active Lisinopril 5 MG Oral Tablet (Prinivil)Indications :Essential (primary) hypertension TAKE 1 TABLET BY MOUTH DAILY 90 Tablet 3 10/06/2022 Active Nicotine 21 MG/24HR Transdermal Patch 24 Hour (Nicoderm CQ) APPLY 1 PATCH DAILY DIRECTED 0 09/04/2022 Active Dulaglutide 1.5 MG/0.5ML Subcutaneous Solution Pen-injector [...] at bedtime. 30 Tablet 5 02/14/2023 Active Pregabalin 150 MG Oral Capsule (Lyrica)Indications:L umbosacral radiculopathy Take 1 Capsule by mouth in the morning and 1 Capsule at noon and 1 Capsule before bedtime. 90 Capsule 1 02/11/2023 Active Albuterol Sulfate HFA 108 (90 Base) MCG/ACT Inhalation Aerosol SolutionIndications:W heezing Inhale 2 Puffs by mouth every 4 hours as needed for Shortness of Breath or Wheezing. As needed 18 g 2 02/15/2023 Active Cyclobenzaprine HCl 10 MG Oral Tablet (Flexeril) Take 1 Tablet by mouth in the morning and 1 Tablet at noon and 1 Tablet before bedtime. 0 01/03/2023 Active oxyCODONE HCl 5 MG Oral Tablet (Oxy IR)Indications:Acute exacerbation of chronic low back pain,Other intervertebral disc displacement, lumbosacral region Take 1 Tablet by mouth every 6 hours as needed for Pain, Severe. 60 Tablet 0 03/10/2023 Active Benzonatate 100 MG Oral CapsuleIndications:Ac kayleen cough Take 1 Capsule by mouth 3 times a day as needed for Cough. 30 Capsule 1 03/15/2023 Active Acetaminophen 500 MG Oral Tablet (Tylenol)Indications: Sore throat Take 2 Tablets by mouth every 6 hours as needed for Pain, Moderate. 30 Tablet 1 03/15/2023 Active documented as of this encounter (statuses as of 03/16/2023) Active Problems Problem Noted Date Diagnosed Date Anxiety and depression 02/16/2023 Generalized osteoarthritis 10/28/2022 Predominant disturbance of emotions 09/23/2022 Food insecurity 08/16/2022 Overview: Per [facility] Protocol Type 2 diabetes mellitus wit h hemoglobin [...] as of this encounter (statuses as of 03/16/2023) Resolved Problems Problem Noted Date Diagnosed Date Resolved Date Morbid (severe) obesity due to excess calories 02/16/2023 02/18/2023 BMI 40.0-44.9, adult 02/18/2022 024 Nausea without vomiting 02/18/2022 08/0 02/2022 Migraine without status migr ainosus, not intractable 02/18/2022 09/07/2022 Rheumatoid arthritis involvi ng multiple sites with positive rheumatoid factor 02/18/2022 10/29/19 23 Acute calculous cholecystitis 01/29/2019 09/07/2022 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 10/02/2018 10/13/2018 BMI 45.0-49.9, adult 06/09/2018 02/15/2 023 Morbid obesity due to excess calories 06/09/2018 10/02/2018 Sacroiliitis, not elsewhere classified 06/09/2018 02/18/2023 Hematuria, gross 10/11/2014 06/09/2018 Urgency of urination 10/11/2014 019 Urinary frequency 10/11/2014 06/09/2018 documented as of this encounter (statuses as of 03/16/2023) Immunizations Name Administration Dates Next Due Hepatitis B, 20+ yrs 12/10/2022,06/02/2022 Pneumococcal Conjugate Vacci ne, 20-valent ([id number]) 04/14/2022 Pneumococcal Polysaccharide PPV23 (Pneumovax) 07/28/2020 Seasonal [...] Used Date Smoking Tobacco: Every Day Cigarettes 0.3 Last attempted to quit: 04/09/2019 Smokeless Tobacco: [...] of this encounter Progress Notes * Dixie Lau [facility] - 03/16/2023 3:19 PM EST UDS 03/15/23: (+) Oxycodone Screen results are appropriate, patient is on Oxycodone. Dixie Lau [facility] Clinical Pharmacist [facility] documented in this encounter Plan of Treatment Upcoming Encounters Date Type Department Care Team (Late st Contact Info) Description 03/21/2023 1:40 PM EST Office [place] [address] [address] Sorin Burks PA-C [address] [address] 03/21/2023 1:40 PM EST Office Visit [place] [address] [address] [facility] Audiology Tech [place] [facility] [address] 03/22/2023 3:30 PM EST Nurse Only Ancillary 1st Floor, [place] [address] [address] [place], Nurse Annual Wellness, RN [address] [place] [address] 03/28/2023 1:40 PM EST Telemedicine Pharmacy, [place] [address] [address] [facility] [address] [place] [address] 04/08/2023 8:30 AM EST Telemedicine Pharmacy, [place] [address] [address] [facility] [address] [address] 06/14/2023 11:20 AM EDT Office Visit Family Practice, [place] [address] [phone] Carlitos Rain MD [address] [address] 01/09/2024 10:30 AM EST Appointment Radiology, [place] [address] [address] Scheduled Procedures Name Priority Associated Diagnoses Date/Ti me COLONOSCOPY FLEXIBLE PROXIMA L DIAGNOSTIC Recall Screening for colon cancer Health Maintenance Due Date Last Done Comments DISCUSS TOBACCO CESSATION (REFER TO SMARTSET #3291) 1975 COVID-19 Vaccine (#1) 04/30/1975 Hepatitis B (3 of 3 - 19+ [...] filedocumented as of this encounter Care Teams Laundry Manager Relationship Specialty Start Date End Date Carlitos Rain MD [address] [address] PCP - General Family Medicine 02/18/22 documented as of this encounter
--- OUTSIDE RECORDS SUMMARY | 2023-04-16 10:50 | External Medical Summary | Summary of Care ---
Author Name Unknown Organization [facility] Address [address] [place] [address] Phone [phone] Care Team Providers Care Legal Director Name Role Phone Adelina Rain MD Primary Care Provider Reason for Visit * Reason Onset Date Comments Medication Refill 03/20/2023 Encounter Details Date Type Department Care Team (Late st Contact Info) Description 03/20/2023 Refill [facility] 21 [facility] [place] [address] Adelina Rain MD [address] [place] [address] Acute exacerbation of chronic low back pain; Other intervertebral disc displacement, lumbosacral region Allergies Active Allergy Reactions Criticality Noted Date Comments Pollen 02/10/2022 documented as of this encounter (statuses as of 03/23/2023) Medications Medication Sig Dispensed Refills Start Date End Date Status cetirizine (ZYRTEC) 10 MG TabletIndications:Se asonal allergies Take 1 Tab by mouth daily. 90 Tab 3 06/09/2018 Active Montelukast Sodium 10 MG Oral Tablet Take by mouth daily. 0 01/07/2021 Active Alcohol Prep Pads 70 % PadIndications:Type 2 diabetes mellitus with hemoglobin A1c goal of less than 7.0% ([facility]) Use for injections. Injects trulicity once weekly 100 Each 1 03/26/2022 Active OneTouch Verio In Vitro Strip (Glucose Blood)Indications:Ty pe 2 diabetes mellitus with hemoglobin A1c goal of less than 8.0% (HCC) Use up to 4 times a day E11.9 400 Strip 2 04/29/2022 Active OneTouch Delica Plus [id number] :Type 2 diabetes mellitus with hemoglobin A1c [...] Additional Information Patient not taking.Reported on 12/10/2022 Atorvastatin Calcium 10 MG Oral Tablet (Lipitor)Indications :Mixed hyperlipidemia TAKE 1 TABLET BY MOUTH DAILY 90 Tablet 3 10/06/2022 Active Vitamin D3 50 MCG (2000 UT) Oral Capsule TAKE 1 CAPSULE BY MOUTH DAILY 90 Capsule 3 10/06/2022 Active Lisinopril 5 MG Oral Tablet (Prinivil)Indication s:Essential [...] 0 03/10/2023 Active Benzonatate 100 MG Oral CapsuleIndications:A cute cough Take 1 Capsule by mouth 3 times a day as needed for Cough. 30 Capsule 1 03/15/2023 Active Acetaminophen 500 MG Oral Tablet (Tylenol)Indications [...] Capsule before bedtime. 90 Capsule 1 02/11/2023 03/22/19 24 Discontinu ed(Refill) documented as of this encounter (statuses as of 03/23/2023) Active Problems Problem Noted Date Diagnosed Date [...] as of this encounter (statuses as of 03/23/2023) Resolved Problems Problem Noted Date Diagnosed Date [...] as of this encounter (statuses as of 03/23/2023) Immunizations Name Administration Dates Next Due Hepatitis B, 20+ yrs 12/10/2022,06/02/2022 Pneumococcal Conjugate Vacci ne, 20-valent (Zolagpu17) 04/14/2022 Pneumococcal Polysaccharide PPV23 (Pneumovax) 07/28/2020 Seasonal [...] encounter Miscellaneous Notes * Telephone Encounter - Adelina Rain MD - 03/23/2023 4:31 PM EST I have not had concerns, but typically requests for her oxycodone have gone through Dixie who also manages her other pain medications. This was outside of that process and given that she has filled RX early, red flags are going up. I have not seen her since Oct, so I have not been able to assess things independently. * Telephone Encounter - Mary Merchant, canceling and cutting control clerk - 03/23/2023 3:09 PM EST Pt calling to check on status of Oxycodone 5 MG. Caller can be reached at [phone]. Pt requesting high priority. States she is requesting high priority because her medications are dueto be filled and picked up today. Thank you, Mary Merchant Plastics Seasoner Operator II Certified [facility] (formerly Telepharmacy) 03/23/2023,3:09 PM * Telephone Encounter - Evie Altman RPh - 03/23/2023 10:[address] Rain, Dixie is out on PTO until next week. Caren reported she is out of medication when requesting this refill, but she picked up her last script on 03/10 around noon according to her pharmacy. She should have enough medication until tomorrow. It also appears she picked up her last script early, so she really should have a few days worth of medication. Have you had previous concerns about overuse of the oxycodone with this patient? Evie Altman, Luis Daniel Clinical Pharmacist * Telephone Encounter - Teresa Rahman CPhT - 03/23/2023 10:05 AM EST Patient states she is out of medication and is asking for high priority. Thank you, Teresa Rahman Plastics Seasoner Operator [facility] 03/23/2023,10:06 AM * Telephone Encounter - Adelina Rain MD - 03/23/2023 7:35 AM EST Refused Prescriptions: Disp Refills oxyCODONE HCl 5 MG Oral Tablet (Oxy IR) 60 Tab*0 Sig: Take 1 Tablet by mouth every 6 hours as needed for Pain, Severe. Refused By: ADELINA RAIN Reason for Refusal: Other (comment below) * Telephone Encounter - Adelina Rain MD - 03/23/2023 7:35 AM EST All requests for oxycodone/pain meds should go through [facility] pain/Dixie Cueto as she is monitoring use. * Telephone Encounter - Sandra Skinner [facility] - 03/22/2023 4:44 AM ESTPending Prescriptions: Disp Refills oxyCODONE HCl 5 MG Oral Tablet (Oxy IR) 60 Tab*0 Sig: Take 1 Tablet by mouth every 6 hours as needed for Pain, Severe. * Telephone Encounter - Ale Reyes [facility] - 03/21/2023 5:20 PM EST Postponed for 03/22 I have reviewed the patients controlled substance dispensing history in the Prescription Drug Monitoring Program in compliance with the [facility] regulations before prescribing a controlled substance. PDMP checked on 03/21/2023. Pending Prescriptions: Disp Refills oxyCODONE HCl 5 MG Oral Tablet (Oxy IR) 60 Tab*0 Sig: Take 1 Tablet by mouth every 6 hours as needed for Pain, Severe. Last Visit: 03/15/2023 (in office), Visit date not found (telemedicine) Next Visit: 06/14/2023 Date medication was last filled: 03/10 Date medication is due for refill: 03/24 Pharmacy: [email or web address] Is this request for a controlled [...] available upon request. Please approve if appropriate. Thank you, Ale Reyes, PharmD Clinical Pharmacist [facility] ([facility]) 03/21/23 5:20 PM [phone] documented in this encounter Plan of Treatment Upcoming Encounters Date Type Department Care Team (Late st Contact Info) Description 03/28/2023 1:40 PM EST Telemedicine Pharmacy, [address] [place] [address] Pharmacist2, [facility] [place] [facility] [place] [address] 04/08/2023 8:30 AM EST Telemedicine Pharmacy, [address] [place] [place] [address] [facility] 21 [facility] [place] [address] 06/14/2023 11:20 AM EDT Office Visit Family Practice, [place] [address] [address] [phone] Adelina Rain MD 21 [facility] [place] [address] 01/09/2024 10:30 AM EST Appointment Radiology, [place] [address] [address] [place] [address] Scheduled Procedures Name Priority Associated Diagnoses Date/Ti me COLONOSCOPY FLEXIBLE PROXIMA L DIAGNOSTIC Recall Screening for colon cancer Health Maintenance Due Date Last Done Comments DISCUSS TOBACCO CESSATION (REFER TO SMARTSET #5338) 1975 COVID-19 Vaccine (#1) 04/30/1975 Hepatitis B (3 of 3 - 19+ 3-dose series) 02/04/2023 12/10/2022, 06/02/2022 COLONOSCOPY-ANNUAL AGES 18-100 04/08/2023 04/07/2022, 04/07/2022 HbA1c 05/13/2023 11/11/2022, 04/2 07/2022, 03/21/2022 Albumin/Creatinine Ratio 06/03/2023 06/02/2022 Diabetic Foot Exam 06/03/2023 06/02/2022 GFR 11/12/2023 11/11/2022, 082 04/2022, 09/19/2022, Additional history exists Diabetic Eye Exam [...] region documented in this encounter Care Teams Legal Director Relationship Specialty Start Date End Date Adelina Rain MD [address] [address] PCP - General Family Medicine 02/18/22 documented as of this encounter
--- OUTSIDE RECORDS SUMMARY | 2023-04-16 10:50 | External Medical Summary | Summary of Care ---
Author Name Unknown Organization [facility] Address [address] [place] [address] Phone [phone] Care Team Providers Care Towel Hemmer Name Role Phone Adelina Rain MD Primary Care Provider Reason for Visit * Reason Onset Date Comments Medication Refill 03/20/2023 Encounter Details Date Type Department Care Team (Late st Contact Info) Description 03/20/2023 Refill Pharmacy [facility] [address], [place] [phone] Adelina Rain MD 21 [place] [address] Type 2 diabetes mellitus with hemoglobin A1c goal of less than 8.0% ([facility]) Allergies Active Allergy Reactions Criticality Noted Date Comments Pollen 02/10/2022 documented as of this encounter (statuses as of 03/21/2023) Medications Medication Sig Dispensed Refills Start Date [...] Strip 2 04/29/2022 Active OneTouch Delica Plus [id number] :Type 2 diabetes mellitus with hemoglobin A1c [...] 02/14/2023 Active Pregabalin 150 MG Oral Capsule (Lyrica)Indications: [...] the morning. 90 Tablet 3 03/21/2023 Active metFORMIN HCl ER 500 MG Oral Tablet Extended Release 24 Hour (Glucophage XR)Indications:Type 2 diabetes mellitus with hemoglobin A1c goal of less than 8.0% (HCC) Take 1 Tablet by mouth in the morning. 90 Tablet 3 06/15/2022 03/20/19 24 Discontinu ed(Refill) documented as of this encounter (statuses as of 03/21/2023) Active Problems Problem Noted Date Diagnosed Date Anxiety and depression 02/16/2023 Generalized osteoarthritis 10/28/2022 Predominant disturbance of emotions 09/23/2022 Food insecurity 08/16/2022 Overview: Per [facility] Protocol Type 2 diabetes mellitus [...] as of this encounter (statuses as of 03/21/2023) Resolved Problems Problem Noted Date Diagnosed Date [...] as of this encounter (statuses as of 03/21/2023) Immunizations Name Administration Dates Next Due Hepatitis B, 20+ yrs 12/10/2022,06/02/2022 Pneumococcal Conjugate Vacci ne, 20-valent ([id number]) 04/14/2022 Pneumococcal Polysaccharide PPV23 (Pneumovax) 07/28/2020 Seasonal [...] encounter Miscellaneous Notes * Telephone Encounter - Lily King RPh - 03/21/2023 7:43 AM EST Signed Prescriptions: Disp Refills metFORMIN HCl ER 500 MG Oral Tablet Extend*90 Tab*3 Sig: Take 1 Tablet by mouth in the morning.Authorizing Provider: ADELINA RAIN User: LILY KING documented in this encounter Plan of Treatment Upcoming Encounters Date Type Department Care Team (Late st Contact Info) Description 03/21/2023 1:40 PM EST Office Visit [place] [address] [address] Sorin Burks PA-C [address] [address] 03/21/2023 1:40 PM EST Office Visit OtolaryngologClaire medley [place] [address] [place] [address] [facility], Audiology [facility] [address] [facility] [place] [address] 03/22/2023 3:30 PM EST Nurse Only Ancillary 1st Floor, [place] 21 [facility] [place] [address] Kelsie, Nurse Annual Wellness, RN [address] [place] [address] 03/28/2023 1:40 PM EST Telemedicine Pharmacy, [place] Roby [facility] [place] [address] Pharmacist2, [facility] [place] [address] [place] [address] 04/08/2023 8:30 AM EST Telemedicine Pharmacy, [place] [address] [place] [address] [place], [facility] [address] [facility] [place] [address] 06/14/2023 11:20 AM EDT Office Visit Family Practice, [address] [place] [phone] Adelina Rain MD 21 [facility] [address] [place] [address] 01/09/2024 10:30 AM EST Appointment Radiology, [address] [place] [address] Scheduled Procedures Name Priority Associated Diagnoses Date/Ti me COLONOSCOPY FLEXIBLE PROXIMA L DIAGNOSTIC Recall Screening for colon cancer Health Maintenance Due Date Last Done Comments DISCUSS TOBACCO CESSATION (REFER TO SMARTSET #3917) 1975 COVID-19 Vaccine (#1) 04/30/1975 Hepatitis B [...] as of this encounter Visit Diagnoses Diagnosis Type 2 diabetes mellitus with hemoglobin A1c goal of less than 8.0% (HCC) documented in this encounter Care Teams Towel Hemmer Relationship Specialty Start Date End Date Adelina Rain MD [address] [phone] PCP - General Family Medicine 02/18/22 documented as of this encounter
--- OUTSIDE RECORDS SUMMARY | 2023-04-16 10:50 | External Medical Summary | Summary of Care ---
Author Name Unknown Organization [facility] Address [address] [place] [address] Phone [phone] Care Team Providers Care Geospatial Information Scientist Name Role Phone Carlitos Rain MD Primary Care Provider Reason for Visit * Reason Onset Date Comments Medication Refill 03/20/2023 Encounter Details Date Type Department Care Team (Late st Contact Info) Description 03/20/[address] [facility] [address] [place] [address] Caitlin López MD [address] [place] [address] Sore throat Allergies Active Allergy Reactions Criticality Noted Date Comments Pollen 02/10/2022 documented as of this encounter (statuses as of 03/20/2023) Medications Medication Sig Dispensed Refills Start Date [...] Strip 2 04/29/2022 Active OneTouch Delica Plus [id number]: Type 2 diabetes mellitus with hemoglobin A1c [...] as of this encounter (statuses as of 03/20/2023) Active Problems Problem Noted Date Diagnosed Date Anxiety and depression 02/16/2023 Generalized osteoarthritis 10/28/2022 Predominant disturbance of emotions 09/23/2022 Food insecurity 08/16/2022 Overview: Per [facility] Protocol Type 2 diabetes mellitus wit [...] as of this encounter (statuses as of 03/20/2023) Resolved Problems Problem Noted Date Diagnosed Date [...] as of this encounter (statuses as of 03/20/2023) Immunizations Name Administration Dates Next Due Hepatitis B, 20+ yrs 12/10/2022,06/02/2022 Pneumococcal Conjugate Vacci ne, 20-valent ([id number]) 04/14/2022 Pneumococcal Polysaccharide PPV23 (Pneumovax) 07/28/2020 Seasonal [...] encounter Miscellaneous Notes * Telephone Encounter - Oren Adams - 03/20/2023 9:04 PM ESTRefused Prescriptions: Disp Refills Acetaminophen 500 MG Oral Tablet (Tylenol) 30 Tab*1 Sig: Take 2Tablets by mouth every 6 hours as needed for Pain, Moderate.Refused By: ASHLEY ADAMSeason for Refusal: Duplicate Request documented in this encounter Plan of Treatment Upcoming Encounters Date Type Department Care Team (Late st Contact Info) Description 03/21/2023 1:40 PM EST Office [place] [address] [address] Sorin Burks PA-C [address] [address] 03/21/2023 1:40 PM EST Office Visit [facility]ology[place] [address] [address] [facility] Audiology [facility] [address] [facility] [place] [address] 03/22/2023 3:30 PM EST Nurse Only Ancillary 1st Floor, [place] [address] [place] [phone] [place]els[place], Nurse Annual Wellness, RN [address] [phone] 03/28/2023 1:40 PM EST Telemedicine Pharmacy, [place] [address] [place] [address] Pharmacist2, [facility] [place] [address] [place] [address] 04/08/2023 8:30 AM EST Telemedicine Pharmacy, [place] [address] [place] [address] Kelsie [facility] [address] [place] [address] 06/14/2023 11:20 AM EDT Office Visit Family [facility], [place] [address]y [address] [place] [phone] Carlitos Rain MD [address] [place] [address] 01/09/2024 10:30 AM EST Appointment Radiology, [place] [address] [place] [address] Scheduled Procedures Name Priority Associated Diagnoses Date/Ti me COLONOSCOPY FLEXIBLE PROXIMA L DIAGNOSTIC Recall Screening for colon cancer Health Maintenance Due Date Last Done Comments DISCUSS TOBACCO CESSATION (REFER TO SMARTSET #8564) 1974 COVID-19 Vaccine (#1) 04/30/1975 Hepatitis B [...] as of this encounter Visit Diagnoses Diagnosis Sore throat Acute pharyngitis documented in this encounter Care Teams Geospatial Information Scientist Relationship Specialty Start Date End Date Carlitos Rain MD [address] [place] [address] PCP - General Family Medicine 02/18/22 documented as of this encounter
--- OUTSIDE RECORDS SUMMARY | 2023-04-16 10:50 | External Medical Summary | Summary of Care ---
Author Name Unknown Organization [facility] Address [address] [place] [address] Phone [phone] Care Team Providers Care Usability Engineer Name Role Phone Adelina Rain MD Primary Care Provider Reason for Visit * Reason Onset Date Comments Medication Refill 03/22/2023 Encounter Details Date Type Department Care Team (Late st Contact Info) Description 03/22/2023 Refill Pharmacy, [place] 21 [facility] [place] [address] Adelina Rain MD 21 [facility] [place] [phone] Lumbosacral radiculopathy Allergies Active Allergy Reactions Criticality Noted Date [...] hemoglobin A1c goal of less than 7.0% ([facility]) Use for injections. Injects trulicity once weekly 100 Each 1 03/26/2022 Active OneTouch Verio In Vitro Strip (Glucose Blood)Indications:Ty pe 2 diabetes mellitus with hemoglobin A1c goal of less than 8.0% (HCC) Use up to 4 times a day E11.9 400 Strip 2 04/29/2022 Active OneTouch Delica Plus [id number] :Type 2 diabetes mellitus with hemoglobin A1c [...] before bedtime. 90 Capsule 1 03/23/2023 Active Pregabalin 150 MG Oral Capsule (Lyrica)Indications: [...] emotions 09/23/2022 Food insecurity 08/16/2022 Overview: Per [facility] Protocol Type 2 diabetes mellitus [...] yrs 12/10/2022,06/02/2022 Pneumococcal Conjugate Vacci ne, 20-valent ([id number]) 04/14/2022 Pneumococcal Polysaccharide PPV23 (Pneumovax) 07/28/2020 Seasonal [...] Encounter - Adelina Rain MD - 03/23/2023 4:24 PM EST Signed Prescriptions: Disp Refills Pregabalin 150 MG Oral Capsule (Lyrica) 90 Cap*1 Sig: Take 1 Capsule by mouth in the morning and 1 Capsule at noon and 1 Capsule before bedtime.Authorizing Provider: ADELINA RAIN * Telephone Encounter - Adelina Rain MD - 03/23/2023 4:23 PM EST Pending Prescriptions: Disp Refills Pregabalin 150 MG Oral Capsule (Lyrica) 90 Cap*1 Sig: Take 1 Capsule by mouth in the morning and 1 Capsule at noon and 1 Capsule before bedtime. * Telephone Encounter - Hannah Wilson energy conservation representative - 03/23/2023 3:17 PM EST Caller's name: Caren Preferred call back number(OFFICE NUMBER FOR ): [phone] Reason for call: Pt calling to see if she is able to get her Oxycodone. She is asking for the Rph or PCP to call her. Please advise. Thank you, Hannah Wilson Medical Charge Entry Specialist [facility] 03/23/2023,3:17 PM * Telephone Encounter - Evie Altman [facility] - 03/23/2023 8:36 AM EST Pending Prescriptions: Disp Refills Pregabalin 150 MG Oral Capsule (Lyrica) 90 Cap*1 Sig: Take 1 Capsule by mouth in the morning and 1 Capsule at noon and 1 Capsule before bedtime. * Telephone Encounter - Evie Altman [facility] - 03/23/2023 8:35 AM EST Hi [facility]. Order pended for your consideration. Thanks, Evie Altman PharmD Clinical Pharmacist * Telephone Encounter - Marimar Vaughan [facility] - 03/23/2023 8:04 AM ESTPending Prescriptions: Disp Refills Pregabalin 150 MG Oral Capsule (Lyrica) 90 Cap*1 Sig: Take 1 Capsule by mouth in the morning and 1 Capsule at noon and 1 Capsule before bedtime. documented in this encounter Plan of Treatment Upcoming Encounters Date Type Department Care Team (Late st Contact Info) Description 03/28/2023 1:40 PM EST Telemedicine Pharmacy, [place] [address] [place] [address] Pharmacist2, [facility] [place] [address] [place] [address] 04/08/2023 8:30 AM EST Telemedicine Pharmacy, [place] [address] [place] [address] Kelsie [facility] [address] [place] [address] 06/14/2023 11:20 AM EDT Office Visit Family Practice, [place] Rob[address] [place] [phone] Adelina Rain MD [address] [place] [address] 01/09/2024 10:30 AM EST Appointment Radiology, [place] [address] [place] [address] Scheduled Procedures Name Priority Associated Diagnoses Date/Ti me COLONOSCOPY FLEXIBLE PROXIMA L DIAGNOSTIC Recall Screening for colon cancer Health Maintenance Due Date Last Done Comments DISCUSS TOBACCO CESSATION (REFER TO SMARTSET #4382) 1974 COVID-19 Vaccine (#1) 04/30/1975 Hepatitis B [...] as of this encounter Visit Diagnoses Diagnosis Lumbosacral radiculopathy Thoracic or lumbosacral neuritis or radiculitis, unspecified documented in this encounter Care Teams Usability Engineer Relationship Specialty Start Date End Date Adelina Rain MD [address] [place] [place] [phone] PCP - General Family Medicine 02/18/22 documented as of this encounter
--- OUTSIDE RECORDS SUMMARY | 2023-04-16 10:50 | External Medical Summary | Summary of Care ---
Author Name Unknown Organization [facility] Address [address] [place] [address] Phone [phone] Care Team Providers Care Casting Machine Set Up Operator Name Role Phone Adelina Rain MD Primary Care Provider Reason for Visit * Reason Onset Date Comments Medication Refill 03/20/2023 Encounter Details Date Type Department Care Team (Late st Contact Info) Description 03/20/2023 Refill [facility] [place] [facility] 21 [facility] [address] Adelina Rain MD 21 [place] [address] Acute exacerbation of chronic low [...] goal of less than 7.0% ([facility]) Use for injections. Injects trulicity once weekly 100 Each 1 03/26/2022 Active OneTouch Verio In Vitro Strip (Glucose Blood)Indications:Typ e 2 diabetes mellitus with hemoglobin A1c goal of less than 8.0% (HCC) Use up to 4 times a day E11.9 400 Strip 2 04/29/2022 Active OneTouch Delica Plus [id number]: Type 2 diabetes mellitus with hemoglobin A1c [...] 12/10/2022 Atorvastatin Calcium 10 MG Oral Tablet (Lipitor)Indications: [...] the morning. 90 Tablet 3 03/21/2023 Active documented as of this encounter (statuses as of 03/23/2023) Active Problems Problem Noted Date Diagnosed Date Anxiety and depression 02/16/2023 Generalized osteoarthritis 10/28/2022 Predominant disturbance of emotions 09/23/2022 Food insecurity 08/16/2022 Overview: Per [facility] Protocol Type 2 diabetes mellitus [...] yrs 12/10/2022,06/02/2022 Pneumococcal Conjugate Vacci ne, 20-valent ([id number]) 04/14/2022 Pneumococcal Polysaccharide PPV23 (Pneumovax) 07/28/2020 Seasonal [...] encounter Miscellaneous Notes * Telephone Encounter - Mary Merchant PHARM Tech - 03/23/2023 3:09 PM EST Pt calling to check on status of Oxycodone 5 MG. Caller can be reached at [phone]. Pt requesting high priority. States she is requesting high priority because her medications are dueto be filled and picked up today. Thank you, Mary Merchant Physical Chemistry Professor II Certified [facility] (formerly [facility]pharm[facility]) 03/23/2023,3:09 PM * Telephone Encounter - Evie Altman RPh - 03/23/2023 10:39 AM EST Hi Faith Mantillaa is out on PTO until next week. [...] of the oxycodone with this patient? Evie Altman PharmD Clinical Pharmacist * Telephone Encounter - Teresa Rahman CPhT - 03/23/2023 10:05 AM EST Patient states she is out of medication and is asking for high priority. Thank you, Teresa Rahman Physical Chemistry Professor [facility] ([facility]) ([facility]) 03/23/2023,10:06 AM * Telephone Encounter - Adelina [...] requests for oxycodone/pain meds should go through [facility] pain/Dixie Cueto as she is monitoring use. * Telephone Encounter - Sandra Skinner [facility] - 03/22/2023 4:44 AM ESTPending Prescriptions: Disp Refills oxyCODONE HCl 5 MG Oral Tablet (Oxy IR) 60 Tab*0 Sig: Take 1 Tablet by mouth every 6 hours as needed for Pain, Severe. * Telephone Encounter - Ale Reyes [facility] - 03/21/2023 5:20 PM EST Postponed for 03/22 I have reviewed the patients controlled substance dispensing history in the Prescription Drug Monitoring Program in compliance with the [facility] regulations before prescribing a controlled [...] medication is due for refill: 03/24 Pharmacy: [facility] Is this request for a controlled [...] Clinical Pharmacy Services ([facility]) 03/21/23 5:20 PM [phone] documented in this encounter Plan of Treatment Upcoming Encounters Date Type Department Care Team (Late st Contact Info) Description 03/28/2023 1:40 PM EST Telemedicine Pharmacy, [address] [place] [address] Pharmacist2, [facility] [place] [address] [place] [address] 04/08/2023 8:30 AM EST Telemedicine Pharmacy, [place] [address] [place] [address] K[place] [facility] [address] [place] [address] 06/14/2023 11:20 AM EDT Office Visit Family Practice, [place] [address] [place] [phone] Adelina Rain MD [address] [place] [address] 01/09/2024 10:30 AM EST Appointment Radiology, [place] Roby Torres [place] [address] Scheduled Procedures Name Priority Associated Diagnoses Date/Ti me COLONOSCOPY FLEXIBLE PROXIMA L DIAGNOSTIC Recall Screening for colon cancer Health Maintenance Due Date Last Done Comments DISCUSS TOBACCO CESSATION (REFER TO SMARTSET #6225) 1974 COVID-19 Vaccine (#1) 04/30/1975 Hepatitis B [...] region documented in this encounter Care Teams Casting Machine Set Up Operator Relationship Specialty Start Date End Date Adelina Rain MD [address] [place] [address] PCP - General Family Medicine 02/18/22 documented as of this encounter
--- OUTSIDE RECORDS SUMMARY | 2023-04-16 10:50 | External Medical Summary | Summary of Care ---
Author Name Unknown Organization [facility] Address [address] [place] [address] Phone [phone] Care Team Providers Care Putter In Name Role Phone Carlitos Rain MD Primary Care Provider Reason for Visit * Reason Onset Date Comments Health Maintenance 03/23/2023 Encounter Details Date Type Department Care Team (Late st Contact Info) Description 03/23/2023 Telephone Ancillary 1st Floor, [place] 21 [place], [place] [phone] Magda Landin, LUZ Health Maintenance Allergies Active Allergy Reactions Criticality Noted Date [...] Strip 2 04/29/2022 Active OneTouch Delica Plus [id number]: Type 2 diabetes mellitus with hemoglobin A1c [...] 03/10/2023 Active Benzonatate 100 MG Oral CapsuleIndications:Ac elem cough Take 1 Capsule by mouth 3 [...] yrs 12/10/2022,06/02/2022 Pneumococcal Conjugate Vacci ne, 20-valent ([id number]) 04/14/2022 Pneumococcal Polysaccharide PPV23 (Pneumovax) 07/28/2020 Seasonal [...] encounter Miscellaneous Notes * Telephone Encounter - Magda Landin RN - 03/23/2023 3:24 PM EST Reason for Call: Health Maintenance Contact: My Mehreen Contact Type: Care Coordination Outcome: MyG message sent to see if patient interested in rescheduling Annual Wellness visit. Face to face time spent with Patient (minutes): 0 Total Time including non face to face (minutes): 10 Magda Landin RN documented in this encounter Plan of Treatment Upcoming Encounters Date Type Department Care Team (Late st Contact Info) Description 03/28/2023 1:40 PM EST [facility] [address] [place] [address] Pharmacist2, [facility] [place] [address] [place] [address] 04/08/2023 8:30 AM EST Telemedicine Pharmacy, [place] [address] [facility] [place] [address] 06/14/2023 11:20 AM EDT Office Visit Family [place], [place] [phone] Carlitos Rain MD [address] [place] [address] 01/09/2024 10:30 AM EST Appointment [place], [place] [address] Scheduled Procedures Name Priority Associated Diagnoses Date/Ti me COLONOSCOPY FLEXIBLE PROXIMA L DIAGNOSTIC Recall Screening for colon cancer Health Maintenance Due Date Last Done Comments DISCUSS TOBACCO CESSATION (REFER TO SMARTSET #3244) 1974 COVID-19 Vaccine (#1) 04/30/1975 Hepatitis B [...] filedocumented as of this encounter Care Teams Putter In Relationship Specialty Start Date End Date Carlitos Rain MD [facility] [phone] PCP - General Family Medicine 02/18/22 documented as of this encounter
--- OUTSIDE RECORDS SUMMARY | 2023-04-16 10:50 | External Medical Summary | Summary of Care ---
Author Name Unknown Organization [facility] Address [address] [place] [address] Phone [phone] Care Team Providers Care Remotely Operated Vehicle Name Role Phone Adelina Rain MD Primary Care Provider Reason for Visit * Reason Onset Date Comments Medication Refill 03/20/2023 Encounter Details Date Type Department Care Team (Late st Contact Info) Description 03/20/2023 Refill [facility] 21 [place] [address] Adelina Rain MD 21 [place] [address] Acute exacerbation of chronic low [...] goal of less than 7.0% ([facility]) Use for injections. 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 10/02/2018 10/13/2018 BMI 45.0-49.9, adult 06/09/2018 023 Morbid obesity due to excess calories 06/09/2018 10/02/2018 Sacroiliitis, not elsewhere classified 06/09/2018 02/18/2023 Hematuria, gross 10/11/2014 06/09/2018 Urgency of urination 10/11/2014 019 Urinary frequency 10/11/2014 06/09/2018 documented as of this encounter (statuses as of 03/23/2023) Immunizations Name Administration Dates Next Due Hepatitis B, 20+ yrs 12/10/2022,06/02/2022 Pneumococcal Conjugate Vacci ne, 20-valent ([id number]) 04/14/2022 Pneumococcal Polysaccharide PPV23 (Pneumovax) 07/28/2020 Seasonal [...] encounter Miscellaneous Notes * Telephone Encounter - Evie Altman RP - 03/23/2023 10:[address] Rain Dixie is out on PTO until next [...] the oxycodone with this patient? Evie Altman, PharmD Clinical Pharmacist * Telephone Encounter - Teresa Rahman CPhT - 03/23/2023 10:05 AM EST Patient states she is out of medication and is asking for high priority. Thank you, Teresa Rahman Aircraft Tool Maker Centralized [facility]acy Services ([facility]) (Formerly Telepharmacy) 03/23/2023,10:06 AM * Telephone Encounter - Adelina [...] requests for oxycodone/pain meds should go through [facility] pain/Dixie Ceuto as she is monitoring use. * Telephone Encounter - Sandra Skinner, [facility] - 03/22/2023 4:44 AM ESTPending Prescriptions: Disp Refills oxyCODONE HCl 5 MG Oral Tablet (Oxy IR) 60 Tab*0 Sig: Take 1 Tablet by mouth every 6 hours as needed for Pain, Severe. * Telephone Encounter - Ale Reyes, [facility] - 03/21/2023 5:20 PM EST Postponed for 03/22 I have reviewed the patients controlled substance dispensing history in the Prescription Drug Monitoring Program in compliance with the [facility] regulations before prescribing a controlled substance. [...] medication is due for refill: 03/24 Pharmacy: [facility] Is this request for a controlled [...] Clinical Pharmacy Services ([facility]) 03/21/23 5:20 PM [phone] documented in this encounter Plan of Treatment Upcoming Encounters Date Type Department Care Team (Late st Contact Info) Description 03/28/2023 1:40 PM EST Telemedicine Pharmacy, [address] [address] Pharmacist2, [facility] [address] [place] [address] 04/08/2023 8:30 AM EST Telemedicine Pharmacy, [address] [place] [address] [facility] [address] [place] [address] [place] [address] 06/14/2023 11:20 AM EDT Office Visit [place] [address] [place] [phone] Adelina Rain MD 21 [place] [address] 01/09/2024 10:30 AM EST Appointment Radiology, [place] [address] Scheduled Procedures Name Priority Associated Diagnoses Date/Ti [...] region documented in this encounter Care Teams Remotely Operated Vehicle Relationship Specialty Start Date End Date Adelina Rain MD 21 [place] [phone] PCP - General Family Medicine 02/18/22 documented as of this encounter
--- OUTSIDE RECORDS SUMMARY | 2023-04-16 10:50 | External Medical Summary | Summary of Care ---
Author Name Unknown Organization [facility] Address [address] [place] [address] Phone [phone] Care Team Providers Care Safety Council Director Name Role Phone Adelina Rain MD Primary Care Provider Reason for Visit * Reason Onset Date Comments Medication Refill 03/20/2023 Encounter Details Date Type Department Care Team (Late st Contact Info) Description 03/20/2023 Refill [facility] 21 [place] [address] Adelina Rain MD 21 [place] [address] Acute exacerbation of chronic low [...] goal of less than 7.0% ([facility]) Use for injections. Injects trulicity once weekly 100 Each 1 03/26/2022 Active OneTouch Verio In Vitro Strip (Glucose Blood)Indications:Typ e 2 diabetes mellitus with hemoglobin A1c goal of less than 8.0% (HCC) Use up to 4 times a day E11.9 400 Strip 2 04/29/2022 Active OneTouch Delica Plus [id number]: Type 2 diabetes mellitus with hemoglobin A1c [...] emotions 09/23/2022 Food insecurity 08/16/2022 Overview: Per [facility] Protocol Type 2 diabetes mellitus [...] yrs 12/10/2022,06/02/2022 Pneumococcal Conjugate Vacci ne, 20-valent ([id number]) 04/14/2022 Pneumococcal Polysaccharide PPV23 (Pneumovax) 07/28/2020 Seasonal [...] requests for oxycodone/pain meds should go through [facility] pain/Dixie Cueto as she is monitoring use. * Telephone Encounter - Sandra Skinner [facility] - 03/22/2023 4:44 AM ESTPending Prescriptions: Disp Refills oxyCODONE HCl 5 MG Oral Tablet (Oxy IR) 60 Tab*0 Sig: Take 1 Tablet by mouth every 6 hours as needed for Pain, Severe. * Telephone Encounter - Ale Reyes [facility] - 03/21/2023 5:20 PM EST Postponed for 03/22 I have reviewed the patients controlled substance dispensing history in the Prescription Drug Monitoring Program in compliance with the [facility] regulations before prescribing a controlled substance. [...] medication is due for refill: 03/24 Pharmacy: [facility] Is this request for a controlled [...] Clinical Pharmacy Services ([facility]) 03/21/23 5:20 PM [phone] documented in this encounter Plan of Treatment Upcoming Encounters Date Type Department Care Team (Late st Contact Info) Description 03/28/2023 1:40 PM EST Telemedicine Pharmacy, [place] [address] [place] [address] Pharmacist2, [facility] [place] [address] [place] [address] 04/08/2023 8:30 AM EST Telemedicine Pharmacy, [place] [address] [place] [address] [place], [facility] [address] [place] [address] 06/14/2023 11:20 AM EDT Office Visit [facility], [place] Roby [address] [place] [phone] Adelina Rain MD [address] [place] [address] 01/09/2024 10:30 AM EST Appointment Radiology, [place] [address] [place] [address] Scheduled Procedures Name Priority Associated Diagnoses Date/Ti [...] region documented in this encounter Care Teams Safety Council Director Relationship Specialty Start Date End Date Adelina Rain MD [address] [place] [address] PCP - General Family Medicine 02/18/22 documented as of this encounter
--- OUTSIDE RECORDS SUMMARY | 2023-04-16 10:50 | External Medical Summary | Summary of Care ---
Author Name Unknown Organization [facility] Address [address] [place] [address] Phone [phone] Care Team Providers Care Credit Rating Inspector Name Role Phone Adelina Rain MD Primary Care Provider Reason for Visit * Reason Onset Date Comments Medication Refill 03/20/2023 Encounter Details Date Type Department Care Team (Late st Contact Info) Description 03/20/2023 Refill [facility] 21 [place] [address] Adelina Rain MD 21 [place] [address] Acute exacerbation of chronic low [...] goal of less than 7.0% ([facility]) Use for injections. Injects trulicity once weekly 100 Each 1 03/26/2022 Active OneTouch Verio In Vitro Strip (Glucose Blood)Indications:Typ e 2 diabetes mellitus with hemoglobin A1c goal of less than 8.0% (HCC) Use up to 4 times a day E11.9 400 Strip 2 04/29/2022 Active OneTouch Delica Plus [id number]: Type 2 diabetes mellitus with hemoglobin A1c [...] emotions 09/23/2022 Food insecurity 08/16/2022 Overview: Per [facility] Protocol Type 2 diabetes mellitus [...] yrs 12/10/2022,06/02/2022 Pneumococcal Conjugate Vacci ne, 20-valent ([id number]) 04/14/2022 Pneumococcal Polysaccharide PPV23 (Pneumovax) 07/28/2020 Seasonal [...] encounter Miscellaneous Notes * Telephone Encounter - Teresa Rahman CPhT - 03/23/2023 10:05 AM EST Patient states she is out of medication and is asking for high priority. Thank you, Teresa Rahman Spinner Cap Frame Centralized Clinical Pharmacy Services (CCPS) (Formerly Telepharmacy) [...] requests for oxycodone/pain meds should go through [facility] pain/Dixie Cueto as she is monitoring use. * Telephone Encounter - Sandra Skinner [facility] - 03/22/2023 4:44 AM ESTPending Prescriptions: Disp Refills oxyCODONE HCl 5 MG Oral Tablet (Oxy IR) 60 Tab*0 Sig: Take 1 Tablet by mouth every 6 hours as needed for Pain, Severe. * Telephone Encounter - Ale Reyes [facility] - 03/21/2023 5:20 PM EST Postponed for 03/22 I have reviewed the patients controlled substance dispensing history in the Prescription Drug Monitoring Program in compliance with the [facility] regulations before prescribing a controlled [...] medication is due for refill: 03/24 Pharmacy: [facility] Is this request for a controlled [...] Clinical Pharmacy Services (CCPS) 03/21/23 5:20 PM [phone] documented in this encounter Plan of Treatment Upcoming Encounters Date Type Department Care Team (Late st Contact Info) Description 03/28/2023 1:40 PM EST Telemedicine Pharmacy, [address] [place] [address] Pharmacist2, [facility] [address] [place] [address] 04/08/2023 8:30 AM EST Telemedicine Pharmacy, [address] [place] [address] [facility] [address] [place] [address] [place] [address] 06/14/2023 11:20 AM EDT Office Visit [place] [address] [address] [place] [phone] Adelina Rain MD [address] [place] [address] [place] [address] 01/09/2024 10:30 AM EST Appointment Radiology, [address] [place] [address] Scheduled Procedures Name Priority Associated Diagnoses Date/Ti [...] region documented in this encounter Care Teams Credit Rating Inspector Relationship Specialty Start Date End Date Adelina Rain MD [address] [place] [phone] PCP - General Family Medicine 1/12/23 documented as of this encounter
--- OUTSIDE RECORDS SUMMARY | 2023-04-16 10:50 | External Medical Summary | Summary of Care ---
Author Name Unknown Organization [facility] Address [address] [place] [address] Phone [phone] Care Team Providers Care Boat And Plant Utility Supervisor Name Role Phone Adelina Rain MD Primary Care Provider Reason for Visit * Reason Onset Date Comments Medication Refill 03/20/2023 Encounter Details Date Type Department Care Team (Late st Contact Info) Description 03/20/2023 Refill [facility] 21 [place] [address] Adelina Rain MD 21 [place] [address] Acute exacerbation of chronic low back pain; Other intervertebral disc displacement, lumbosacral region Allergies Active Allergy Reactions Criticality Noted Date Comments Pollen 02/10/2022 documented as of this encounter (statuses as of 03/24/2023) Medications Medication Sig Dispensed Refills Start Date [...] Strip 2 04/29/2022 Active OneTouch Delica Plus [id number] :Type 2 diabetes mellitus with hemoglobin A1c [...] as of this encounter (statuses as of 03/24/2023) Active Problems Problem Noted Date Diagnosed Date [...] as of this encounter (statuses as of 03/24/2023) Resolved Problems Problem Noted Date Diagnosed Date [...] as of this encounter (statuses as of 03/24/2023) Immunizations Name Administration Dates Next Due Hepatitis B, 20+ yrs 12/10/2022,06/02/2022 Pneumococcal Conjugate Vacci ne, 20-valent ([id number]) 04/14/2022 Pneumococcal Polysaccharide PPV23 (Pneumovax) 07/28/2020 Seasonal [...] as of this encounter Miscellaneous Notes * Addendum Note - Catherine Altman RPh - 03/24/2023 8:59 AM ESTAddended by: CATHERINE ALTMAN on: 03/24/2023 08:59 AM Modules accepted: Orders * Telephone Encounter - Catherine Altman RPh - 03/24/2023 8:55 AM EST Spoke with Caren, she states she is not actually out of medication and that she didn't say she was. States she is due for her refill based on the date. Advised that in the future, she should request her medication when she has 2 days worth of medication (8 pills) instead of by the date on the prescription bottle to avoid early refills or confusion. Patient states understanding. Dr. Rain - order pended for your consideration. Thanks, Catherine Altman PharmD Clinical Pharmacist * Telephone Encounter - Adelina Rain MD [...] independently. * Telephone Encounter - Mary Merchant, bullet assembly press operator - 03/23/2023 3:09 PM EST Pt calling to check on status of Oxycodone 5 MG. Caller can be reached at [phone]. Pt requesting high priority. States she is requesting high priority because her medications are dueto be filled and picked up today. Thank you, Mary Merchant Housing Specialist II Certified Centralized Clinical Pharmacy Services [facility] 03/23/2023,3:09 PM * Telephone Encounter - Catherine Altman RPh - 03/23/2023 10:39 AM EST Hi Dixie Mantilla is out on PTO until next week. [...] overuse of the oxycodone with this patient? Catherine Altman PharmD Clinical Pharmacist * Telephone Encounter - Teresa Rahman CPhT - 03/23/2023 10:05 AM EST Patient states she is out of medication and is asking for high priority. Thank you, Teresa Rahman Housing Specialist Centralized Clinical Pharmacy Services (CCPS) (Formerly Telepharmacy) [...] requests for oxycodone/pain meds should go through [facility] pain/Dixie Cueto as she is monitoring use. * Telephone Encounter - Sandra Skinner [facility] - 03/22/2023 4:44 AM ESTPending Prescriptions: Disp Refills oxyCODONE HCl 5 MG Oral Tablet (Oxy IR) 60 Tab*0 Sig: Take 1 Tablet by mouth every 6 hours as needed for Pain, Severe. * Telephone Encounter - Ale Reyes [facility] - 03/21/2023 5:20 PM EST Postponed for 03/22 I have reviewed the patients controlled substance dispensing history in the Prescription Drug Monitoring Program in compliance with the [facility] regulations before prescribing a controlled substance. [...] is due for refill: 03/24 Pharmacy: [facility] Is this request for a controlled [...] Clinical Pharmacy Services (CCPS) 03/21/23 5:20 PM [phone] documented in this encounter Plan of Treatment Upcoming Encounters Date Type Department Care Team (Late st Contact Info) Description 03/28/2023 1:40 PM EST [address]med[address]acy, [address] [place] [address] Pharmacist2, [facility] [place] [facility] [place] [address] 04/08/2023 8:30 AM EST Telemedicine Pharmacy, [address] [place] [address] [place] [facility] 21 [place] [address] 06/14/2023 11:20 AM EDT Office Visit Family Practice, [place] [address] [place] [phone] Adelina Rain MD [address] [place] [address] 01/09/2024 10:30 AM EST Appointment Radiology, [place] [address] Scheduled Procedures Name Priority Associated Diagnoses Date/Ti me COLONOSCOPY FLEXIBLE PROXIMA L DIAGNOSTIC Recall Screening for colon cancer Health Maintenance Due Date Last Done Comments DISCUSS TOBACCO CESSATION (REFER TO SMARTSET #3589) 1975 COVID-19 Vaccine (#1) 04/30/1975 Hepatitis B [...] region documented in this encounter Care Teams Boat And Plant Utility Supervisor Relationship Specialty Start Date End Date Adelina Rain MD 21 [facility] [place] [phone] PCP - General Family Medicine 02/18/22 documented as of this encounter
--- OUTSIDE RECORDS SUMMARY | 2023-04-16 10:50 | External Medical Summary | Summary of Care ---
Author Name Unknown Organization [facility] Address [address] [place] [address] Phone [phone] Care Team Providers Care Supervisor Powder And Primer Canning Name Role Phone Adelina Rain MD Primary Care Provider Reason for Visit * Reason Onset Date Comments Medication Refill 03/20/2023 Encounter Details Date Type Department Care Team (Late st Contact Info) Description 03/20/2023 Refill [facility] 21 [facility] [place] [address] Adelina Rain MD 21 [place] [address] Acute exacerbation of chronic low [...] A1c goal of less than 7.0% ([facility]) Use for injections. Injects trulicity once weekly 100 Each 1 03/26/2022 Active OneTouch Verio In Vitro Strip (Glucose Blood)Indications:Typ e 2 diabetes mellitus with hemoglobin A1c goal of less than 8.0% (HCC) Use up to 4 times a day E11.9 400 Strip 2 04/29/2022 Active OneTouch Delica Plus [id number]: Type 2 diabetes mellitus with hemoglobin A1c [...] emotions 09/23/2022 Food insecurity 08/16/2022 Overview: Per [facility] Protocol Type 2 diabetes mellitus [...] yrs 12/10/2022,06/02/2022 Pneumococcal Conjugate Vacci ne, 20-valent ([id number]) 04/14/2022 Pneumococcal Polysaccharide PPV23 (Pneumovax) 07/28/2020 Seasonal [...] requests for oxycodone/pain meds should go through [facility] pain/Dixie Cueto as she is monitoring use. * Telephone Encounter - Sandra Skinner [facility] - 03/22/2023 4:44 AM ESTPending Prescriptions: Disp Refills oxyCODONE HCl 5 MG Oral Tablet (Oxy IR) 60 Tab*0 Sig: Take 1 Tablet by mouth every 6 hours as needed for Pain, Severe. * Telephone Encounter - Ale Reyes [facility] - 03/21/2023 5:20 PM EST Postponed for 03/22 I have reviewed the patients controlled substance dispensing history in the Prescription Drug Monitoring Program in compliance with the [facility] regulations before prescribing a controlled substance. PDMP [...] medication is due for refill: 03/24 Pharmacy: [facility] Is this request for a controlled [...] Clinical Pharmacy Services (CCPS) 03/21/23 5:20 PM [phone] documented in this encounter Plan of Treatment Upcoming Encounters Date Type Department Care Team (Late st Contact Info) Description 03/28/2023 1:40 PM EST Telemedicine Pharmacy, [place] [address] Pharmacist2, [facility] [place] [address] [place] [address] 04/08/2023 8:30 AM EST Telemedicine Pharmacy, [place] [address] [place], [facility] [address] [place] [address] 06/14/2023 11:20 AM EDT Office Visit [facility] [place] [place] [phone] Adelina Rain MD [address] [place] [address] 01/09/2024 10:30 AM EST Appointment Radiology, [place] [address] Scheduled Procedures Name Priority Associated Diagnoses Date/Ti [...] region documented in this encounter Care Teams Supervisor Powder And Primer Canning Relationship Specialty Start Date End Date Adelina Rain MD [address] [place] [address] PCP - General Family Medicine 02/18/22 documented as of this encounter
--- OUTSIDE RECORDS SUMMARY | 2023-04-16 10:50 | External Medical Summary | Summary of Care ---
Author Name Unknown Organization [facility] Address [address] [place] [address] Phone [phone] Care Team Providers Care Cleaning Team Member Name Role Phone Carlitos Rain MD Primary Care Provider Reason for Referral * Medication Prior Authorization - Closed Specialty Diagnoses / Procedures Referred By Rafiq pendleton Referred To Contact Diagnoses Acute cough Caitlin López MD [address] [place] [address] Referral ID Status Reason Start Date Expiration Date Visits Re quested Visits Authorized [id number] Closed 999 777 Reason for Visit * Reason Comments Acute Headache, sore throa t, cough, chest congestion, sx x 5 days Encounter Details Date Type Department Care Team (Late st Contact Info) Description 03/15/2023 10:00 AM EST Office Visit [facility] [address] [place] [phone] Caitlin López MD 21 [place] [phone] Upper respiratory tract infection, unspecified type*; Sore throat; Acute cough; Tobacco use disorder Allergies Active Allergy Reactions Criticality Noted Date Comments Pollen 02/10/2022 documented as of this encounter (statuses as of 03/15/2023) Medications Medication Sig Dispensed Refills Start Date [...] Strip 2 04/29/2022 Active OneTouch Delica Plus [id number]: Type 2 diabetes mellitus with hemoglobin A1c [...] 03/10/2023 Active Benzonatate 100 MG Oral CapsuleIndications:Ac levelock cough Take 1 Capsule by mouth 3 times a day as needed for Cough. 30 Capsule 1 03/15/2023 Active Acetaminophen 500 MG Oral Tablet (Tylenol)Indications: Sore throat Take 2 Tablets by mouth every 6 hours as needed for Pain, Moderate. 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 Food insecurity 08/16/2022 Overview: Per [facility] Protocol Type 2 diabetes mellitus [...] as of this encounter (statuses as of 03/15/2023) Resolved Problems Problem Noted Date Diagnosed Date [...] as of this encounter (statuses as of 03/15/2023) Immunizations Name Administration Dates Next Due Hepatitis B, 20+ yrs 12/10/2022,06/02/2022 Pneumococcal Conjugate Vacci ne, 20-valent ([id number]) 04/14/2022 Pneumococcal Polysaccharide PPV23 (Pneumovax) 07/28/2020 Seasonal [...] attempted to quit: 04/09/2019 Smokeless Tobacco: Never Tobacco Cessation:Ready to Q uit: Not Asked; Counseling Given: Not Answered Comments:Trying to quit smoking and has been cutting back Alcohol Use [...] Sign Reading Time Taken Comments Blood Pressure 102/76 03/15/2023 9:34 AM EST Pulse 74 03/15/2023 9:34 AM EST Temperature 36.5 C (97.7 F) 03/15/2023 9:34 AM ES T Respiratory Rate 20 03/15/2023 9:34 AM EST Oxygen Saturation 99% 03/15/2023 9:34 AM EST Inhaled Oxygen Concentration - - Weight 79.4 kg (175 lb) 03/15/2023 9:34 AM EST Height - - Body Mass Index 33.07 09/29/2022 10:18 AM EDT documented in this encounter Progress Notes * Caitlin López MD - 03/15/2023 9:44 AM EST Images from the original note were not included. History of Present Illness Caren Johnson is a 47 year old female that presents for Acute (Headache, sore throat, cough, chest congestion, sx x 5 days) Acute visit. Patient is sick for 5 days, +voice changes, cough, headache, chest pain with cough Had subjective fever, + /- SOB, sore throat. Appetite decrease, drinking fluids (not enough per ), takes Mucinex. Tobacco use +, trying to quit. Physical Exam Vitals: 03/15/23 0934 Temp: 36.5 C (97.7 F) Pulse: 74 Resp: 20 SpO2: 99% BP: 102/76 BP Readings from Last 3 Encounters: 03/15/23 102/76 02/18/23 110/68 02/15/23 118/78 Wt Readings from Last 3 Encounters: 03/15/23 79.4 kg (175 lb) 02/18/23 77.9 kg (171 lb 12.8 oz) 02/15/23 77.8 kg (171 lb 8 oz) BMI Readings from Last 3 Encounters: 03/15/23 33.07 kg/m 02/18/23 32.46 kg/m 02/15/23 32.40 kg/m Physical Exam Constitutional: General: She is not in acute distress. Appearance: Normal appearance. HENT: Head: Normocephalic and atraumatic. Comments: Voice changes Right Ear: Tympanic membrane, ear canal and external ear normal. Left Ear: Tympanic membrane, ear canal and external ear normal. Nose: Congestion present. Mouth/Throat: Mouth: Mucous membranes are moist. Pharynx: Posterior oropharyngeal erythema present. Eyes: Conjunctiva/sclera: Conjunctivae normal. Pupils: Pupils are equal, round, and reactive to light. Cardiovascular: Rate and Rhythm: Normal rate and regular rhythm. Pulses: Normal pulses. Pulmonary: Effort: Pulmonary effort is normal. Breath sounds: Normal air entry. Comments: Cough, wheezes with cough Abdominal: General: Bowel sounds are normal. There is no distension. Palpations: Abdomen is soft. Tenderness: There is no abdominal tenderness. Musculoskeletal: Cervical back: Neck supple. Right lower leg: No edema. Left lower leg: No edema. Skin: General: Skin is warm and dry. Findings: No rash. Neurological: Mental Status: She is alert and oriented to person, place, and time. Psychiatric: Mood and Affect: Mood normal. Behavior: Behavior normal. I have reviewed the following results: None Assessment and Plan 1. Sore throat - GROUP A STREP PCR - Acetaminophen 500 MG Oral Tablet (Tylenol); Take 2 Tablets by mouth every 6 hours as needed for Pain, Moderate. Dispense: 30 Tablet; Refill: 1 2. Upper respiratory tract infection, unspecified type - RESPIRATORY PATHOGEN PANEL, PCR; Future - RESPIRATORY PATHOGEN PANEL, PCR - Albuterol as needed 3. Acute cough - Benzonatate 100 MG Oral Capsule; Take 1 Capsule by mouth 3 times a day as needed for Cough. Dispense: 30 Capsule; Refill: 1 4. Tobacco use disorder - cessation advised Wrap-Up As needed Time: I spent a total of 20-29 minutes (exact time 25 mins) on the date of service in preparation, delivery, and documentation of the care provided to Caren Johnson excluding any time spent in the performance of separately billed services. documented in this encounter Nursing Notes * Mellissa Chacon LPN - 03/15/2023 9:31 AM EST Chief Complaint Patient presents with Acute Headache, sore throat, cough, chest congestion, sx x 5 days documented in this encounter Plan of Treatment Upcoming Encounters Date Type Department Care Team (Late st Contact Info) Description 03/21/2023 1:40 PM EST [facility] [place] [facility] [place] [address] [place] [address] Sroin Burks PA-C [address] [place] [address] 03/21/2023 1:40 PM EST Office Visit [facility] [place] [address] [place] [address] [facility] Audiology [facility] [address] [facility] [place] [address] 03/22/2023 3:30 PM EST Nurse Only Ancillary 1st Floor, [place] 21 [place] [address] [place], Nurse Annual Wellness, RN 21 [place] [address] 03/28/2023 1:40 PM EST Telemedicine Pharmacy, [place] [address] Pharmacist2, [facility] [place] [address] 04/08/2023 8:30 AM EST Telemedicine Pharmacy, [place] [address] [place], [facility] [place] [address] 06/14/2023 11:20 AM EDT Office Visit Family [facility], [address] [place] [phone] Carlitos Rain MD 21 [facility] Brian [place] [address] 01/09/2024 10:30 AM EST Appointment Radiology, [place] [address] Pending Results Name Type Priority Associated Diagnoses Date /Time GROUP A STREP PCR Lab Routine Sore throat 03/15/2023 9:59 AM EST RESPIRATORY PATHOGEN PANEL, PCR Lab Routine Upper respiratory tract infection, unspecified type 03/15/2023 9:59 AM EST Scheduled Orders Name Type Priority Associated Diagnoses Orde r Schedule RESPIRATORY PATHOGEN PANEL, PCR Lab Routine Upper respiratory tract infection, unspecified type Expected: 03/15/2023 (Approximate), Expires: 03/14/2024 Scheduled Procedures Name Priority Associated Diagnoses Date/Ti me COLONOSCOPY FLEXIBLE PROXIMA L DIAGNOSTIC Recall Screening for colon cancer Health Maintenance Due Date Last Done Comments DISCUSS TOBACCO CESSATION (REFER TO SMARTSET #5936) 1975 COVID-19 Vaccine (#1) 04/30/1975 Hepatitis B [...] as of this encounter Visit Diagnoses Diagnosis Upper respiratory tract infection, unspecified type- Primary Sore throat Acute pharyngitis Acute cough Tobacco use disorder documented in this encounter Additional Health Concerns Infection Onset Date Last Indicated Resolved Time Respiratory Rule-Out 03/15/2023 03/15/2023 documented as of this encounter Care Teams Cleaning Team Member Relationship Specialty Start Date End Date Carlitos Rain MD [address] [place] [address] PCP - General Family Medicine 02/18/22 documented as of this encounter
--- OUTSIDE RECORDS SUMMARY | 2023-04-16 10:51 | External Medical Summary ---
Author Name Unknown Address Unknown Organization K01:[facility] [place] [facility] [address] [facility] [address] Laboratory Report Ordering Provider Test Date Status JOEY RICHARDSONPat 03/15/2023 09:59:31 Final Observation Date Value Abnormality Reference (Units) Status Streptococcus pyogenes DNA [Presence] in Throat by [facility] with probe detection 03/15/2023 09:59:31 Negative. No Group A Streptococcus detected by PCR (amplified probe). Negative Final This test was developed and its performance characteristics determined by [facility]. It has not been cleared or approved by the FDA. The laboratory is regulated under CLIA as qualified to perform high- complexity testing. This test is used for clinical purposes. It should not be regarded as investigational or for research. Performing Location [facility]ATORY [place] [address] [address] [facility] [address]
--- OUTSIDE RECORDS SUMMARY | 2023-04-16 10:51 | External Medical Summary ---
Author Name Unknown Address Unknown Organization K01:[place] [facility] [place] [address] [facility] [address] Laboratory Report Ordering Provider Test Date Status ANTOINENEGRITOALTA 03/15/2023 10:18:47 Final Drugs that require complianc e testing:

Opioids:
Oxycodone: Quantity 5 mg Date/Time of last Dose routine use

Benzodiazepines
None

Cutoff Concentrations:
Drug Level
Amphetamines 500 ng/mL
Benzodiazepines 100 ng/mL
Cannabinoids 50 ng/mL
Cocaine Metabolite 150 ng/mL
Fentanyl 1 ng/mL
Hydrocodone / Hydromorphone 300 ng/mL
Methadone Metabolite 100 ng/mL
Morphine / Codeine 300 ng/mL
Oxycodone / Oxymorphone 100 ng/mL

Screening results are presumptive and can only be used for medical purposes. Confirmatory testing is available upon request. Observation Date Value Abnormality Reference (Units) Status COMPLIANCE INTERPRETATION 03/15/2023 10:18:47 Based on the medication information provided: Final COMPLIANCE INTERPRETATION 03/15/2023 10:18:47 The positive oxycodone screening result is CONSISTENT with oxycodone use. Confirmatory testing is available upon request. Final Changed Report: Previously r eported on 03/16/2023 at 1213 EST. See Results History in [facility] for previous versions of the report. Amphetamines, Urine screen 03/15/2023 10:18:47 Negative Negative Final Benzodiazepines, Urine screen 03/15/2023 10:18:47 Negative Negative Final Cannabinoids, Urine screen 03/15/2023 10:18:47 Negative Negative Final Cocaine Metabolite, Urine screen 03/15/2023 10:18:47 Negativ e Negative Final fentaNYL [Presence] in Urine by Screen method 03/15/2023 10:18:47 Negative Negative Final HYDROcodone [Presence] in Ur ine by Screen method 03/15/2023 10:18:47 Negative Negative Kimberlee l 1-Vztdedcddf-2,2-Wsywerda-1, 3-Di phenylpyrrolidine (EDDP) [Presence] in Urine 03/15/2023 10:18:47 Negative Negative F inal Opiates, Urine screen 03/15/2023 10:18:47 Negative Negative Final oxyCODONE [Presence] in Urin e by Screen method 03/15/2023 10:18:47 Positive Abnormal Negative Final FORENSIC VALID INTERPRETATION 03/15/2023 10:18:47 Normal Final Creatinine, Urine 03/15/2023 10:18:47 138 (m g/dL) Final Performing Location [place] [facility] [place] [facility] [address] [facility] [id number]
--- OUTSIDE RECORDS SUMMARY | 2023-04-16 10:51 | External Medical Summary | Summary of Care ---
Author Name Unknown Organization [facility] Address [address] [place] [address] Phone [phone] Care Team Providers Care Ballast Cleaning Operator Name Role Phone Carlitos Rain MD Primary Care Provider Encounter Details Date Type Department Care Team (Late st Contact Info) Description 02/18/2023 Telephone [facility] [address] [facility] [place] [facility] [place] [address] Caitlin López MD [address] [place] [address] Allergies Active Allergy Reactions Criticality Noted Date Comments Pollen 02/10/2022 documented as of this encounter (statuses as of 02/18/2023) Medications Medication Sig Dispensed Refills Start Date End Date Status cetirizine (ZYRTEC) 10 MG TabletIndications:Sea huang allergies Take 1 Tab by mouth daily. 90 Tab 3 06/09/2018 Active Montelukast Sodium 10 MG Oral Tablet Take by mouth daily. 0 01/07/2021 Active Alcohol Prep Pads 70 % PadIndications:Type 2 diabetes mellitus with hemoglobin A1c goal of less than 7.0% ([facility]) Use for injections. Injects trulicity once weekly 100 Each 1 03/26/2022 Active OneTouch Verio In Vitro Strip (Glucose Blood)Indications:Typ e 2 diabetes mellitus with hemoglobin A1c goal of less than 8.0% (HCC) Use up to 4 times a day E11.9 400 Strip 2 04/29/2022 Active OneTouch Delica Plus [id number]: Type 2 diabetes mellitus with hemoglobin A1c [...] at bedtime. 30 Tablet 5 02/14/2023 Active oxyCODONE HCl 5 MG Oral Tablet (Oxy IR)Indications:Acute exacerbation of chronic low back pain,Other intervertebral disc displacement, lumbosacral region Take 1 Tablet by mouth every 6 hours as needed for Pain, Severe. 60 Tablet 0 02/11/2023 Active Pregabalin 150 MG Oral Capsule (Lyrica)Indications:L umbosacral radiculopathy Take 1 Capsule by mouth in the morning and 1 Capsule at noon and 1 Capsule before bedtime. 90 Capsule 1 02/11/2023 Active Amoxicillin 500 MG Oral Capsule (Amoxil)Indications:L eft ear pain Take 1 Capsule by mouth in the morning and 1 Capsule at noon and 1 Capsule before bedtime. Do all this for 10 days. 30 Capsule 0 02/15/2023 4 Active Ofloxacin 0.3 % Otic Solution (Floxin)Indications:L eft ear pain Administer 10 Drops into the left ear in the morning for 10 days. In affected ear for 10 days.. 5 mL 0 02/15/2023 4 Active Albuterol Sulfate HFA 108 (90 Base) MCG/ACT Inhalation Aerosol SolutionIndications:W jazmin Inhale 2 Puffs by mouth every 4 hours as needed for Shortness of Breath or Wheezing. As needed 18 g 2 02/15/2023 Active Cyclobenzaprine HCl 10 MG Oral Tablet (Flexeril) Take 1 Tablet by mouth in the morning and 1 Tablet at noon and 1 Tablet before bedtime. 0 01/03/2023 Active predniSONE 20 MG Oral Tablet (Deltasone)Indication s:Bilateral hearing loss, unspecified hearing loss type Take 3 Tablets by mouth in the morning for 8 days. 24 Tablet 0 02/18/2023 Active documented as of this encounter (statuses as of 02/18/2023) Active Problems Problem Noted Date Diagnosed Date Anxiety and depression 02/16/2023 Generalized osteoarthritis 10/28/2022 Predominant disturbance of emotions 09/23/2022 Food insecurity 08/16/2022 Overview: Per [facility] Protocol Type 2 diabetes mellitus wit h hemoglobin A1c goal of less than 7.0% 03/25/2022 BMI 40.0-44.9, adult 02/18/2022 Spinal stenosis of lumbar region with radiculopa [...] as of this encounter (statuses as of 02/18/2023) Resolved Problems Problem Noted Date Diagnosed Date Resolved Date Morbid (severe) obesity due to excess calories 02/16/2023 02/18/2023 Nausea without vomiting 02/18/2022 08/0 02/2022 Migraine [...] as of this encounter (statuses as of 02/18/2023) Immunizations Name Administration Dates Next Due Hepatitis B, 20+ yrs 12/10/2022,06/02/2022 Pneumococcal Conjugate Vacci ne, 20-valent ([id number]) 04/14/2022 Pneumococcal Polysaccharide PPV23 (Pneumovax) 07/28/2020 Seasonal [...] encounter Miscellaneous Notes * Telephone Encounter - Jackie Harrell LPN - 02/18/2023 12:54 PM EST Please schedule first available appt with audio. * Telephone Encounter - Drea Adamson OSA - 02/18/2023 11:43 AM EST Please assist with 3 day URGENT referral. Thank you! documented in this encounter Plan of Treatment Upcoming Encounters Date Type Department Care Team (Late st Contact Info) Description 02/22/2023 12:00 PM EST Nurse Only Ancillary 1st Floor, [place] [address] [address] [address] Nurse Camryn Iglesias [place] [phone] 03/11/2023 9:30 AM EST Telemedicine Pharmacy, [place] [address] [facility] [place] [address] 06/14/2023 11:20 AM EDT Office Visit Family Practice, [place] [phone] Carlitos Rain MD [address] [place] [address] 01/09/2024 10:30 AM EST Appointment Radiology, [place] [address] [place] [address] Scheduled Procedures Name Priority Associated Diagnoses Date/Ti [...] Not on filedocumented as of this encounter Additional Health Concerns Infection Onset Date Last Indicated Resolved Time RSV 02/15/2023 02/15/2023 documented as of this encounter Care Teams Ballast Cleaning Operator Relationship Specialty Start Date End Date Carlitos Rain MD 21 [facility] [place] [address] PCP - General Family Medicine 02/18/22 documented as of this encounter
--- OUTSIDE RECORDS SUMMARY | 2023-04-16 10:51 | External Medical Summary | Summary of Care ---
Author Name Unknown Organization [facility] Address [address] [place] [address] Phone [phone] Care Team Providers Care Nut Culler Name Role Phone Carlitos Rain MD Primary Care Provider Reason for Visit * Reason Comments Dosage Adjustment In Person (Anticoag Cl inic) Pain Encounter Details Date Type Department Care Team ([facility] st Contact Info) Description 03/11/2023 9:30 AM [facility], [place] [address] [place] [address] [facility] [place] [address] Encounter for long-term (current) use of medications*; Sacroiliitis, not elsewhere classified (HCC); Cervicalgia; Primary osteoarthritis of both knees; Spinal stenosis of lumbar region with radiculopathy; Chronic pain syndrome; Chronic midline low back pain with bilateral sciatica; Lumbosacral radiculopathy Allergies Active Allergy Reactions Criticality Noted Date Comments Pollen 02/10/2022 documented as of this encounter (statuses as of 03/11/2023) Medications Medication Sig Dispensed Refills Start Date [...] Strip 2 04/29/2022 Active OneTouch Delica Plus [id number]: Type 2 diabetes mellitus with hemoglobin A1c [...] Pain, Severe. 60 Tablet 0 03/10/2023 Active documented as of this encounter (statuses as of 03/11/2023) Active Problems Problem Noted Date Diagnosed Date [...] as of this encounter (statuses as of 03/11/2023) Resolved Problems Problem Noted Date Diagnosed Date [...] as of this encounter (statuses as of 03/11/2023) Immunizations Name Administration Dates Next Due Hepatitis B, 20+ yrs 12/10/2022,06/02/2022 Pneumococcal Conjugate Vacci ne, 20-valent ([id number]) 04/14/2022 Pneumococcal Polysaccharide PPV23 (Pneumovax) 07/28/2020 Seasonal [...] this encounter Progress Notes * Dixie Lau, [facility] - 03/11/2023 9:10 AM EST Images from the original note were not included. Patient location: HOME. I was not in a hospital or clinic location. After connecting through [employer], patient was verified with two unique identifiers. Patient (or authorized legal new accounts banking representative) was then informed that this was a Telemedicine visit and being conducted confidentially over secure lines. Methods to assure confidentiality were taken. Patient acknowledged consent and understanding of privacy and security of the Telemedicine visit. The patient agreed to participate. Medication Therapy Disease Management Clinic - Chronic Pain Management Progress Note 03/11/2023 Caren Johnson, identified by name and date of , is a 47 year old female being seen for chronic pain management/education. Patient presents to pain MTM clinic for return visit. Referring Physician: Carlitos Rain MD Medication Use Agreement: on file Patient's Pharmacy: [facility] CHIEF COMPLAINT: OA/ chronic back pain, failed surgeries Fibromyalgia HPI: Increase in Lyrica has been very helpful No side effects noted Pain described as: radiation around the lower [...] score: 0 points (problem unlikely) Daily MME: 15 PDMP Reviewed (03/11/2023): Urine Toxicology Screens: UDS 10/28/22: (+) oxycodone/ oxymorphone (+) THC Pill Count: n/a Functional Goal: to be able to sit and sleep Past Pain Medications: SA Opioids: Oxycodone LA Opioids: NSAIDS: Muscle relaxants: Flexeril Antidepressants: Cymbalta: did not work Anticonvulsants: Gabapentin Lyrica Other: Current Pain Medications: Oxycodone 5 mg QID PRN Topamax 50 mg BID for migraines Lyrica 150 mg TID Wellbutrin Buspirone Creatinine Clearance: Serum creatinine: 0.8 mg/dL 11/11/22 1417 Estimated creatinine clearance: 81.2 mL/min Creatinine Results: Recent Labs Units 11/11/22 1417 09/29/22 1053 09/19/22 0807 CREATININE - [facility] mg/dL 0.8 0.8 0.9 Hepatic Function (ALT): Recent Labs Units 09/29/22 [...] previous titration of Lyrica has been helpful. Able to assist in care of her during his cancer treatments is her current goal . Notes to have some flare with recent illness and lifting of firewood. Overall feels pain has been very well managed Adherence: Reviewed current regimen, patient is adherent to regimen. Treatment options: Continue current regimen. Oxycodone use is approved at this time Treatment concerns: Patient notes to be taking care of a family member at this time Education provided: Education and MOA provided on [...] have been exhibited. PLAN: Continue current regimen UDS order added, patient will complete within 1 week Medication changes: no change Pain Medications: Oxycodone 5 mg QID PRN Topamax 50 mg BID for migraines Lyrica 150 mg TID Patient verbalized understanding of the plan. Contact clinic with any issues. FOLLOW UP: Return to clinic in 4 weeks Dixie Lau [facility] Clinical Pharmacist - Dispatcher Radio Medication Therapy Management Clinic 03/11/2023, 9:11 AM documented in this encounter Plan of Treatment Upcoming Encounters Date Type Department Care Team (Late st Contact Info) Description 03/21/2023 1:40 PM EST Office Visit [place]ol[place]ology[place]aire [place] [address] [place] [address] Sorin Burks PA-C [address] [place] [address] 03/21/2023 1:40 PM EST Office Visit OtolaryngologClaire medley [place] [address] [address] [facility] Audiology [facility] [address] [facility] [place] [address] 03/22/2023 3:30 PM EST Nurse Only Ancillary 1st Floor, [place] [address] [address] [place], Nurse Annual Wellness, RN [address] [place] [address] 03/28/2023 1:40 PM EST Telemedicine Pharmacy, [place] [address] [place] [address] Pharmacist2, [facility] [place] [address] [address] [place] [address] 04/08/2023 8:30 AM EST Telemedicine Pharmacy, [place] [address] [place], [facility] [address] [place] [address] 06/14/2023 11:20 AM EDT Office Visit Family Practice, [place] [address] [address] [place] [phone] Carlitos Rain MD 21 [facility] [address] [place] [address] 01/09/2024 10:30 AM EST Appointment Radiology, [place] [address] Mehreen Torres [place] [address] Scheduled Orders Name Type Priority Associated Diagnoses Orde r Schedule PAIN MANAGEMENT DRUG PANEL, URINE W/ INTERPRETATION Lab Routine Encounter for long-term (current) use of medications Expected: 03/25/2023 (Approximate), Expires: 06/09/2023 URINE TEMPERATURE Lab Routine Encounter for long-term (current) use of medications Expected: 03/25/2023, Expires: 03/11/2024 Scheduled Procedures Name Priority Associated Diagnoses Date/Ti me COLONOSCOPY FLEXIBLE PROXIMA L DIAGNOSTIC Recall Screening for colon cancer Health Maintenance Due Date Last Done Comments DISCUSS TOBACCO CESSATION (REFER TO SMARTSET #8275) 1975 COVID-19 Vaccine (#1) 04/30/1975 Hepatitis B (3 of 3 - 19+ 3-dose series) 02/04/2023 12/10/2022, 06/02/2022 COLONOSCOPY-ANNUAL AGES 18-100 04/08/2023 04/07/2022, 04/07/2022 HbA1c 05/13/2023 11/11/2022, 05/09, 03/21/2022 Albumin/Creatinine Ratio 06/03/2023 06/02/2022 Diabetic Foot Exam 06/03/2023 06/02/2022 GFR 11/12/2023 11/11/2022, 09/08, 09/19/2022, Additional history exists Diabetic Eye Exam 11/23/2023 11/22/2022, 04/07/2022 Mammogram 01/06/2024 01/05/2023, 06/09/2018 Depression Screening 02/17/2024 02/16/2023 Lipid Panel 03/21/2027 03/21/2022, 0210/2021, 02/19/2019, Additional history exists DTaP,Tdap,and Td Vaccines [...] this encounter Visit Diagnoses Diagnosis Encounter for long-term (current) use of medications- Primary Encounter for long-term (current) use of other medications Sacroiliitis, not elsewhere classified (HCC) Sacroiliitis, not elsewhere classified Cervicalgia Primary osteoarthritis of both knees Primary localized osteoarthrosis, lower leg Spinal stenosis of lumbar region with radiculopathy Spinal stenosis, lumbar region, without neurogenic claudication Chronic pain syndrome Chronic midline low back pain with bilateral sciatica Lumbosacral radiculopathy Thoracic or lumbosacral neuritis or radiculitis, unspecified documented in this encounter Care Teams Nut Culler Relationship Specialty Start Date End Date Carlitos Rain MD [address] [place] [phone] PCP - General Family Medicine 02/18/22 documented as of this encounter
--- OUTSIDE RECORDS SUMMARY | 2023-04-16 10:51 | External Medical Summary | Summary of Care ---
Author Name Unknown Organization [facility] Address [address] [place] [address] Phone [phone] Care Team Providers Care Private Watchman Name Role Phone Carlitos Rain MD Primary Care Provider Reason for Visit * Reason Comments Outpatient Testing Encounter Details Date Type Department Care Team ([facility] st Contact Info) Description 03/15/2023 10:10 AM EST Laboratory Laboratory, [place] [address] [place] [address] [facility] [address] [place] [address] Encounter for long-term (current) use of medications Allergies Active Allergy Reactions Criticality Noted Date [...] Strip 2 04/29/2022 Active OneTouch Delica Plus [id number]: Type 2 diabetes mellitus with hemoglobin A1c [...] 03/10/2023 Active Benzonatate 100 MG Oral CapsuleIndications:Ac ho-chunk cough Take 1 Capsule by mouth 3 [...] emotions 09/23/2022 Food insecurity 08/16/2022 Overview: Per [facility] Protocol Type 2 diabetes mellitus [...] yrs 12/10/2022,06/02/2022 Pneumococcal Conjugate Vacci ne, 20-valent ([id number]) 04/14/2022 Pneumococcal Polysaccharide PPV23 (Pneumovax) 07/28/2020 Seasonal [...] Description 03/21/2023 1:40 PM EST Office Visit Otolaryngology, [place] Sánchez [address] [place] [address] Sorin Burks PA-C [address] [place] [address] 03/21/2023 1:40 PM EST Office Visit Otolaryngology, [place] Sánchez [address] [place] [address] [facility] Audiology [facility] [place] [address] [facility] [place] [address] 03/22/2023 3:30 PM EST Nurse Only Ancillary 1st Floor, [place] [address] [place] [address] [address] [place]ie, Nurse Annual Wellness, RN 21 [place] [address] 03/28/2023 1:40 PM EST Telemedicine Pharmacy, [place] [address] Pharmacist2, [facility] [place] [address] [place] [address] 04/08/2023 8:30 AM EST Telemedicine Pharmacy, [place] [address] [place] [address] [place], [facility] 21 [place] [address] 06/14/2023 11:20 AM EDT Office Visit Family Practice, [place] [address] [place] [phone] Carlitos Rain MD 21 [place] [address] 01/09/2024 10:30 AM EST Appointment Radiology, [place] [address] Pending Results Name Type Priority Associated Diagnoses Date /Time PAIN MANAGEMENT DRUG PANEL, URINE W/ INTERPRETATION Lab Routine Encounter for long-term (current) use of medications 03/15/2023 10:18 AM EST Scheduled Procedures Name Priority Associated Diagnoses Date/Ti me COLONOSCOPY FLEXIBLE PROXIMA L DIAGNOSTIC Recall Screening for colon cancer Health Maintenance Due Date Last Done Comments DISCUSS TOBACCO CESSATION (REFER TO SMARTSET #2341) 1975 COVID-19 Vaccine (#1) 04/30/1975 Hepatitis B [...] Diagnosis Encounter for long-term (current) use of medications Encounter for long-term (current) use of other medications documented in this encounter Additional Health Concerns Infection Onset Date Last Indicated Resolved Time Respiratory Rule-Out 03/15/2023 03/15/2023 documented as of this encounter Care Teams Private Watchman Relationship Specialty Start Date End Date Carlitos Rain MD [address] [place] [address] PCP - General Family Medicine 02/18/22 documented as of this encounter
--- OUTSIDE RECORDS SUMMARY | 2023-04-16 10:51 | External Medical Summary | Summary of Care ---
Author Name Unknown Organization [facility] Address [address] [place] [address] Phone [phone] Care Team Providers Care Wedger Machine Name Role Phone Carlitos Rain MD Primary Care Provider Reason for Visit * Reason Comments Outpatient Testing Encounter Details Date Type Department Care Team ([facility] st Contact Info) Description 03/15/2023 10:10 AM EST Laboratory Laboratory, [place] [address] [place] [address] [facility] [address] [place] [address] Encounter for long-term (current) use [...] Strip 2 04/29/2022 Active OneTouch Delica Plus [id number]: Type 2 diabetes mellitus with hemoglobin A1c [...] 03/10/2023 Active Benzonatate 100 MG Oral CapsuleIndications:Ac wilton cough Take 1 Capsule by mouth 3 [...] emotions 09/23/2022 Food insecurity 08/16/2022 Overview: Per [facility] Protocol Type 2 diabetes mellitus [...] yrs 12/10/2022,06/02/2022 Pneumococcal Conjugate Vacci ne, 20-valent ([id number]) 04/14/2022 Pneumococcal Polysaccharide PPV23 (Pneumovax) 07/28/2020 Seasonal [...] Visit Otolaryngology, [place] Sánchez [address] [place] [address] Sorin Burks PA-C [address] [place] [address] 03/21/2023 1:40 PM EST Office Visit Otolaryngology, [place] Sán[place] 27 [place] [address] [facility] Audiology [facility] 132 [facility] [place] [address] 03/22/2023 3:30 PM EST Nurse Only Ancillary 1st Floor, [place] [address] [place] [address] [place]ie, Nurse Annual Wellness, RN 21 [place] [address] 03/28/2023 1:40 PM EST Telemedicine Pharmacy, [place] [address] Pharmacist2, [facility] [place] [address] [place] [address] 04/08/2023 8:30 AM EST Telemedicine Pharmacy, [place] [address] [place] [address] [place], [facility] 21 [place] [address] 06/14/2023 11:20 AM EDT Office Visit Family Practice, [place] [address] [place] [phone] Carlitos Rain MD 21 [place] [address] 01/09/2024 10:30 AM EST Appointment Radiology, [place] [address] Pending Results Name Type Priority Associated Diagnoses Date /Time PAIN MANAGEMENT DRUG PANEL, URINE W/ INTERPRETATION Lab Routine Encounter for long-term (current) use of medications 03/15/2023 10:18 AM EST Scheduled Procedures Name Priority Associated Diagnoses Date/Ti me COLONOSCOPY FLEXIBLE PROXIMA L DIAGNOSTIC Recall Screening for colon cancer Health Maintenance Due Date Last Done Comments DISCUSS TOBACCO CESSATION (REFER TO SMARTSET #9911) 1975 COVID-19 Vaccine (#1) 04/30/1975 Hepatitis B [...] documented as of this encounter Care Teams Wedger Machine Relationship Specialty Start Date End Date Carlitos Rain MD 21 [place] [address] PCP - General Family Medicine 02/18/22 documented as of this encounter
--- OUTSIDE RECORDS SUMMARY | 2023-04-16 10:51 | External Medical Summary | Summary of Care ---
Author Name Unknown Organization [facility] Address [address] [place] [address] Phone [phone] Care Team Providers Care Stitch Bonding Machine Drawer In Name Role Phone Carlitos Rain MD Primary Care Provider Reason for Visit * Reason Onset Date Comments [facility]: Screening 02/24/2023 Encounter Details Date Type Department Care Team ([facility] st Contact Info) Description 02/24/2023 Telephone [facility], [facility] [address] [facility] [place] [address] [facility], Nurse [facility] [address] [facility] [place] [address] [facility]: Screening Allergies Active Allergy Reactions Criticality Noted Date Comments Pollen 02/10/2022 documented as of this encounter (statuses as of 02/24/2023) Medications Medication Sig Dispensed Refills Start Date End Date Status cetirizine (ZYRTEC) 10 MG TabletIndications:Sea huang allergies Take 1 Tab by mouth daily. 90 Tab 3 06/09/2018 Active Montelukast Sodium 10 MG Oral Tablet Take by mouth daily. 0 01/07/2021 Active Alcohol Prep Pads 70 % PadIndications:Type 2 diabetes mellitus with hemoglobin A1c goal of less than 7.0% ([facility]) Use for injections. Injects trulicity once weekly 100 Each 1 03/26/2022 Active OneTouch Verio In Vitro Strip (Glucose Blood)Indications:Typ e 2 diabetes mellitus with hemoglobin A1c goal of less than 8.0% (HCC) Use up to 4 times a day E11.9 400 Strip 2 04/29/2022 Active OneTouch Delica Plus [id number]: Type 2 diabetes mellitus with hemoglobin A1c [...] 8 days. 24 Tablet 0 02/18/2023 Active oxyCODONE HCl 5 MG Oral Tablet (Oxy IR)Indications:Acute exacerbation of chronic low back pain,Other intervertebral disc displacement, lumbosacral region Take 1 Tablet by mouth every 6 hours as needed for Pain, Severe. 60 Tablet 0 02/23/2023 Active documented as of this encounter (statuses as of 02/24/2023) Active Problems Problem Noted Date Diagnosed Date Anxiety and depression 02/16/2023 Generalized osteoarthritis 10/28/2022 Predominant disturbance of emotions 09/23/2022 Food insecurity 08/16/2022 Overview: Per [facility] Protocol Type 2 diabetes mellitus [...] as of this encounter (statuses as of 02/24/2023) Resolved Problems Problem Noted Date Diagnosed Date [...] as of this encounter (statuses as of 02/24/2023) Immunizations Name Administration Dates Next Due Hepatitis B, 20+ yrs 12/10/2022,06/02/2022 Pneumococcal Conjugate Vacci ne, 20-valent ([id number]) 04/14/2022 Pneumococcal Polysaccharide PPV23 (Pneumovax) 07/28/2020 Seasonal [...] encounter Miscellaneous Notes * Telephone Encounter - Brook Evans LPN - 02/24/2023 2:58 PM EST Caren Johnson was referred as a potential candidate for enrollment for [facility]. A review of this chart was completed and: Caren does not meet criteria for enrollment into [facility]. Referral Source: Monthly Proactive Eligibility List Criteria for Ineligibility: Not Located in Service Area Referring care team was notified via : [employer] communication Pt does live in [facility] service area Pt does not have 6 or more chronic complex medical conditions documented in this encounter Plan of Treatment Upcoming Encounters Date Type Department Care Team (Late st Contact Info) Description 03/11/2023 9:30 AM EST Telemedicine Pharmacy, [place] [address] [place] [address] [facility] [address] [place] [address] [address] 04/25/2023 9:00 AM EDT Office Visit Otolaryngology[place]aire [place] [address] [place] [address] Sorin Burks PA-C [address] [place] [address] 04/25/2023 9:00 AM EDT Office Visit Otolaryngology, Kelsie Sánchez [address] [address] [facility], Audiology Tech Re[address] [place] [address] 06/14/2023 11:20 AM EDT Office Visit Family Practice, [place] [address] [place] [phone] Carlitos Rain MD [address] [place] [address] [address] 01/09/2024 10:30 AM EST Appointment RadiologyKelsie [address] [place] [address] [address] Scheduled Procedures Name Priority Associated Diagnoses Date/Ti [...] documented as of this encounter Care Teams Stitch Bonding Machine Drawer In Relationship Specialty Start Date End Date Carlitos Rain MD [address] [place] [address] [phone] PCP - General Family Medicine 02/18/22 documented as of this encounter
--- OUTSIDE RECORDS SUMMARY | 2023-04-16 10:51 | External Medical Summary | Summary of Care ---
Author Name Unknown Organization [facility] Address [address] [place] [address] Phone [phone] Care Team Providers Care Assistant Store Manager Trainee Name Role Phone Carlitos Rain MD Primary Care Provider Reason for Visit * Reason Comments eRx-Medication Refill Encounter Details Date Type Department Care Team (Late st Contact Info) Description 02/22/2023 Refill [facility] [address] [facility] [place] [address] Carlitos Rain MD 21 [facility] [place] [phone] Gastroesophageal reflux disease, unspecified whether esophagitis present Allergies Active Allergy Reactions Criticality Noted Date Comments Pollen 02/10/2022 documented as of this encounter (statuses as of 02/23/2023) Medications Medication Sig Dispensed Refills Start Date End Date Status cetirizine (ZYRTEC) 10 MG TabletIndications:Sea huang allergies Take 1 Tab by mouth daily. 90 Tab 3 06/09/2018 Active Montelukast Sodium 10 MG Oral Tablet Take by mouth daily. 0 01/07/2021 Active Alcohol Prep Pads 70 % PadIndications:Type 2 diabetes mellitus with hemoglobin A1c goal of less than 7.0% ([facility]) Use for injections. Injects trulicity once weekly 100 Each 1 03/26/2022 Active OneTouch Verio In Vitro Strip (Glucose Blood)Indications:Typ e 2 diabetes mellitus with hemoglobin A1c goal of less than 8.0% (HCC) Use up to 4 times a day E11.9 400 Strip 2 04/29/2022 Active OneTouch Delica Plus [id number]: Type 2 diabetes mellitus with hemoglobin A1c [...] as of this encounter (statuses as of 02/23/2023) Active Problems Problem Noted Date Diagnosed Date Anxiety and depression 02/16/2023 Generalized osteoarthritis 10/28/2022 Predominant disturbance of emotions 09/23/2022 Food insecurity 08/16/2022 Overview: Per [facility] Protocol Type 2 diabetes mellitus [...] as of this encounter (statuses as of 02/23/2023) Resolved Problems Problem Noted Date Diagnosed Date [...] as of this encounter (statuses as of 02/23/2023) Immunizations Name Administration Dates Next Due Hepatitis B, 20+ yrs 12/10/2022,06/02/2022 Pneumococcal Conjugate Vacci ne, 20-valent ([id number]) 04/14/2022 Pneumococcal Polysaccharide PPV23 (Pneumovax) 07/28/2020 Seasonal [...] encounter Miscellaneous Notes * Telephone Encounter - Lemuel Moreno RPh - 02/23/2023 11:46 AM EST Refused Prescriptions: Disp Refills Esomeprazole Magnesium 40 MG Oral Capsule *90 Cap*1 Sig: Take 1Capsule by mouth daily. 30-60 min prior to the first main meal of the day.Refused By: LEMUEL MORENO for Refusal: Too soon documented in this encounter Plan of Treatment Upcoming Encounters Date Type Department Care Team (Late st Contact Info) Description 03/11/2023 9:30 AM EST Telemedicine Pharmacy, [place] [address] [place] [address] [address] [facility] [place] [address] 04/25/2023 9:00 AM EDT Office Visit Otolaryngology, Kelsie Sánchez [address] [place] [address] [address] Sorin Burks PA-C [address] [place] [address] 04/25/2023 9:00 AM EDT Office Visit Otolaryngology, Claire Kelsie Torres [address] [place] [phone] [facility], Audiology Tech [address] [facility] [place] [address] 06/14/2023 11:20 AM EDT Office Visit Family Practice, [place] [address] [place] [address] [phone] Carlitos Rain MD [address] [place] [address] [address] 01/09/2024 10:30 AM EST Appointment Radiology, [place] [address] [place] [address] [address] Scheduled Procedures Name Priority Associated Diagnoses Date/Ti [...] as of this encounter Visit Diagnoses Diagnosis Gastroesophageal reflux disease, unspecified whether esophagitis present documented in this encounter Additional Health Concerns Infection Onset Date Last Indicated Resolved Time RSV 02/15/2023 02/15/2023 documented as of this encounter Care Teams Assistant Store Manager Trainee Relationship Specialty Start Date End Date Carlitos Rain MD [address] [place] [address] [address] PCP - General Family Medicine 02/18/22 documented as of this encounter
--- OUTSIDE RECORDS SUMMARY | 2023-04-16 10:51 | External Medical Summary | Summary of Care ---
Author Name Unknown Organization [facility] Address [address] [place] [address] Phone [phone] Care Team Providers Care Gold Buyer Name Role Phone Carlitos Rain MD Primary Care Provider Reason for Visit * Reason Onset Date Comments Advice 12/06/2022 Encounter Details Date Type Department Care Team (Late st Contact Info) Description 12/06/2022 Telephone [facility] [place] [address] [facility] [place] [address] Carlitos Rain MD [address] [facility] [place] [address] Advice Allergies Active Allergy Reactions Criticality Noted Date Comments Pollen 02/10/2022 documented as of this encounter (statuses as of 03/07/2023) Medications Medication Sig Dispensed Refills Start Date [...] Strip 2 04/29/2022 Active OneTouch Delica Plus [id number] :Type 2 diabetes mellitus with hemoglobin A1c [...] Additional Information Patient not taking.Reported on 02/15/2023 documented as of this encounter (statuses as of 03/07/2023) Active Problems Problem Noted Date Diagnosed Date Anxiety and depression 02/16/2023 Generalized osteoarthritis 10/28/2022 Predominant disturbance of emotions 09/23/2022 Food insecurity 08/16/2022 Overview: Per [facility] Protocol Type 2 diabetes mellitus wit [...] as of this encounter (statuses as of 03/07/2023) Resolved Problems Problem Noted Date Diagnosed Date Resolved Date Morbid (severe) obesity due to excess calories 02/16/2023 02/18/2023 Nausea without vomiting 02/18/2022 08/0 02/2022 Migraine without status migr ainosus, not intractable 02/18/2022 09/07/2022 Rheumatoid arthritis involvi ng multiple sites with positive rheumatoid factor 02/18/2022 09/21/20 23 Acute calculous cholecystitis 01/29/2019 09/07/2022 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 10/02/2018 10/13/2018 BMI 45.0-49.9, adult 06/09/2018 023 Morbid obesity due to excess calories 06/09/2018 10/02/2018 Sacroiliitis, not elsewhere classified 06/09/2018 02/18/2023 Hematuria, gross 10/11/2014 06/09/2018 Urgency of urination 10/11/2014 019 Urinary frequency 10/11/2014 06/09/2018 documented as of this encounter (statuses as of 03/07/2023) Immunizations Name Administration Dates Next Due Hepatitis B, 20+ yrs 06/02/2022 Pneumococcal Conjugate Vacci ne, 20-valent ([id number]) 04/14/2022 Pneumococcal Polysaccharide PPV23 (Pneumovax) 07/28/2020 Seasonal Influenza Vac, Quad , Cell Cult, PF, 6 Mos and Up, IM, (Flucelvax Quad) 11/17/2021 Seasonal Influenza, PF, 6 M & above, IM , (FluLaval or Fluzone) 10/13/2018 Seasonal Influenza, Split, I IV3, With Preserve, Inj 11/07/2019,11/09/2018,10/13/2018,01/25,11/17/2016,09/07/2013 Seasonal Influenza, Trivalen t, High Dose, No Preserve, IM 11/18/2020 TDAP (age 10 and older)(Boostrix) 07/28/2020 documented as of this encounter Social History Tobacco Use Types Packs/Day Years Used Date Smoking Tobacco: Every Day Cigarettes 0.5 Last attempted to quit: 04/09/2019 Smokeless Tobacco: [...] encounter Miscellaneous Notes * Telephone Encounter - Margie Torres LPN - 12/06/2022 10:15 AM EDT Spoke to [facility] pharmacy and they did receive the Nexium Rx on 11/29/22. Pt notified. * Telephone Encounter - Sharon Diane OSA - 12/06/2022 10:02 AM EDT Pt called advised she needs Medication Refill Of Nexium for heart burn advised she was away and they gave her a 10 day fill she needs her Regular [facility] sheis out of medication Please call pt and advised documented in this encounter Plan of Treatment Upcoming Encounters Date Type Department Care Team (Late st Contact Info) Description 03/11/2023 9:30 AM EST Telemedicine Pharmacy, [place] [address] [address] [facility] [address] [address] 03/21/2023 1:40 PM EST Office Visit OtolaryngologClaire [place]ley [place] [address] [address] Sorin Burks PA-C [address] [place] [place] [address] 04/25/2023 9:00 AM EDT Office Visit OtolaryngoClaire damico, [place] [address] [place] [address] [address] [facility], Audiology Tech [address] [place] [address] 06/14/2023 11:20 AM EDT Office Visit Family Practice, [place] [address] [place] [address] [phone] Carlitos Rain MD [address] [place] [address] 01/09/2024 10:30 AM EST Appointment Radiology, [place] [address] [place] [address] Scheduled Procedures Name Priority Associated Diagnoses Date/Ti [...] Date Last Indicated Resolved Time Respiratory Rule-Out 02/15/2023 02/15/2023 024 11:06 PM EST RSV 02/15/2023 02/15/2023 documented as of this encounter Care Teams Gold Buyer Relationship Specialty Start Date End Date Carlitos Rain MD [address] [phone] PCP - General Family Medicine 02/18/22 documented as of this encounter
--- OUTSIDE RECORDS SUMMARY | 2023-04-16 10:51 | External Medical Summary | Summary of Care ---
Author Name Unknown Organization [facility] Address [address] [place] [address] Phone [phone] Care Team Providers Care Bicycle Racer Name Role Phone Carlitos Rain MD Primary Care Provider Encounter Details Date Type Department Care Team (Late st Contact Info) Description 02/17/2023 Population Health External Data Unspecified Department Allergies Active Allergy Reactions Criticality Noted Date Comments Pollen 02/10/2022 documented as of this encounter (statuses as of 02/21/2023) Medications Medication Sig Dispensed Refills Start Date [...] Strip 2 04/29/2022 Active OneTouch Delica Plus [id number]: Type 2 diabetes mellitus with hemoglobin A1c [...] 1 Tablet before bedtime. 0 01/03/2023 Active documented as of this encounter (statuses as of 02/21/2023) Active Problems Problem Noted Date Diagnosed Date [...] as of this encounter (statuses as of 02/21/2023) Resolved Problems Problem Noted Date Diagnosed Date [...] as of this encounter (statuses as of 02/21/2023) Immunizations Name Administration Dates Next Due Hepatitis B, 20+ yrs 12/10/2022,06/02/2022 Pneumococcal Conjugate Vacci ne, 20-valent ([id number]) 04/14/2022 Pneumococcal Polysaccharide PPV23 (Pneumovax) 07/28/2020 Seasonal [...] EST Telemedicine Pharmacy, [place] [address] [place] [address] [address] [facility] [address] [address] 04/25/2023 9:00 AM EDT Office Visit Otolaryngology, Kelsie Sánchez [address] [place] [address] [address] Sorin Burks PA-C [address] [place] [address] [address] 04/25/2023 9:00 AM EDT Office Visit OtolaryngologyClaire [place] [address] [place] [address] [facility] Audiology [facility] [address] [facility] [place] [address] 06/14/2023 11:20 AM EDT Office Visit Family Practice, [place] [address] [place] [address] [phone] Carlitos Rain MD [address] [address] 01/09/2024 10:30 AM EST Appointment Radiology, [place] [address] [place] [address] Scheduled Procedures Name Priority Associated Diagnoses Date/Ti me COLONOSCOPY FLEXIBLE PROXIMA L DIAGNOSTIC Recall Screening for colon cancer Health Maintenance Due Date Last Done Comments DISCUSS TOBACCO CESSATION (REFER TO SMARTSET #[id number]) 1975 COVID-19 Vaccine (#1) 04/30/1975 Hepatitis B [...] documented as of this encounter Care Teams Bicycle Racer Relationship Specialty Start Date End Date Carlitos Rain MD [address] [phone] PCP - General Family Medicine 02/18/22 documented as of this encounter
--- OUTSIDE RECORDS SUMMARY | 2023-04-16 10:51 | External Medical Summary ---
Author Name Unknown Address Unknown Organization K01:[facility] [place] [address] [place] [facility] [place] [address] Laboratory Report Ordering Provider Test Date Status JAMES RICHARDSON 03/15/2023 09:59:31 Final Observation Date Value Abnormality Reference (Units ) Status Adenovirus DNA [Presence] in Nasopharynx by TASHIA with non-probe detection 03/15/2023 09:59:31 Negative Negative Final Human coronavirus 229E RNA [Presence] in Nasopharynx by TASHIA with non-probe detection 03/15/2023 09:59:31 Negative Negative Final Human coronavirus HKU1 RNA [Presence] in Nasopharynx by TASHIA with non-probe detection 03/15/2023 09:59:31 Negative Negative Final Human coronavirus NL63 RNA [Presence] in Nasopharynx by TASHIA with non-probe detection 03/15/2023 09:59:31 Negative Negative Final Human coronavirus OC43 RNA [Presence] in Nasopharynx by TASHIA with non-probe detection 03/15/2023 09:59:31 Negative Negative Final SARS-CoV-2 (COVID-19) RNA [Presence] in Nasopharynx by TASHIA with non-probe detection 03/15/2023 09:59:31 Negative Negative Final Human metapneumovirus RNA [Presence] in Nasopharynx by TASHIA with non-probe detection 03/15/2023 09:59:31 Negative Negative Final Rhinovirus+Enterovirus RNA [Presence] in Nasopharynx by TASHIA with non-probe detection 03/15/2023 09:59:31 Negative Negative Final Influenza virus A RNA [Presence] in Nasopharynx by TASHIA with non-probe detection 03/15/2023 09:59:31 Negative Negative Final Influenza virus B RNA [Presence] in Nasopharynx by TASHIA with non-probe detection 03/15/2023 09:59:31 Negative Negative Final Parainfluenza virus 1 RNA [Presence] in Nasopharynx by TASHIA with non-probe detection 03/15/2023 09:59:31 Negative Negative Final Parainfluenza virus 2 RNA [Presence] in Nasopharynx by TASHIA with non-probe detection 03/15/2023 09:59:31 Negative Negative Final Parainfluenza virus 3 RNA [Presence] in Nasopharynx by TASHIA with non-probe detection 03/15/2023 09:59:31 Negative Negative Final Parainfluenza virus 4 RNA [Presence] in Nasopharynx by TASHIA with non-probe detection 03/15/2023 09:59:31 Negative Negative Final Respiratory syncytial virus RNA [Presence] in Nasopharynx by TASHIA with non-probe detection 03/15/2023 09:59:31 Negative Negative Final Bordetella pertussis.pertussis toxin promoter region [Presence] in Nasopharynx by TASHIA with non-probe detection 03/15/2023 09:59:31 Negative Negative Final Chlamydophila pneumoniae DNA [Presence] in Nasopharynx by TASHIA with non-probe detection 03/15/2023 09:59:31 Negative Negative Final Mycoplasma pneumoniae DNA [Presence] in Nasopharynx by TASHIA with non-probe detection 03/15/2023 09:59:31 Negative Negative Final Bordetella parapertussis [id number] DNA [Presence] in Nasopharynx by TASHIA with non-probe detection 03/15/2023 09:59:31 Negative Negative Final
The primers that detect Rhinovirus may cross react with some Enterorviruses. The validation of bronchial specimens, tracheal aspirates, and throats for this assay was developed and performance characteristics determined by [employer]. The validation of alternate specimen types has not been cleared or approved by the U.S. Food and Drug Administration (FDA). It has been determined that such clearance or approval is not necessary. [facility] Location [facility] [place] [facility] [address] [facility] [address]
--- OUTSIDE RECORDS SUMMARY | 2023-04-16 10:51 | External Medical Summary | Summary of Care ---
Author Name Unknown Organization [facility] Address [address] [place] [address] Phone [phone] Care Team Providers Care Hog Pusher Name Role Phone Adelina Rain MD Primary Care Provider Reason for Visit * Reason Onset Date Comments Medication Refill 03/08/2023 Encounter Details Date Type Department Care Team (Late st Contact Info) Description 03/08/2023 Refill [facility] [address] [place] [address] Adelina Rain MD 21 [place] [address] Acute exacerbation of chronic low back pain; Other intervertebral disc displacement, lumbosacral region Allergies Active Allergy Reactions Criticality Noted Date Comments Pollen 02/10/2022 documented as of this encounter (statuses as of 03/10/2023) Medications Medication Sig Dispensed Refills Start Date End Date Status cetirizine (ZYRTEC) 10 MG TabletIndications:Se asonal allergies Take 1 Tab by mouth daily. 90 Tab 3 06/09/2018 Active Montelukast Sodium 10 MG Oral Tablet Take by mouth daily. 0 01/07/2021 Active Alcohol Prep Pads 70 % PadIndications:Type 2 diabetes mellitus with hemoglobin A1c goal of less than 7.0% ([facility]) Use for injections. Injects trulicity once weekly 100 Each 1 03/26/2022 Active OneTouch Verio In Vitro Strip (Glucose Blood)Indications:Ty pe 2 diabetes mellitus with hemoglobin A1c goal of less than 8.0% (HCC) Use up to 4 times a day E11.9 400 Strip 2 04/29/2022 Active OneTouch Delica Plus [id number] :Type 2 diabetes mellitus with hemoglobin A1c [...] Pain, Severe. 60 Tablet 0 03/10/2023 Active oxyCODONE HCl 5 MG Oral Tablet (Oxy IR)Indications:Acute exacerbation of chronic low back pain,Other intervertebral disc displacement, lumbosacral region Take 1 Tablet by mouth every 6 hours as needed for Pain, Severe. 60 Tablet 0 02/23/2023 03/08/19 24 Discontinu ed(Refill) documented as of this encounter (statuses as of 03/10/2023) Active Problems Problem Noted Date Diagnosed Date [...] as of this encounter (statuses as of 03/10/2023) Resolved Problems Problem Noted Date Diagnosed Date [...] as of this encounter (statuses as of 03/10/2023) Immunizations Name Administration Dates Next Due Hepatitis B, 20+ yrs 12/10/2022,06/02/2022 Pneumococcal Conjugate Vacci ne, 20-valent ([id number]) 04/14/2022 Pneumococcal Polysaccharide PPV23 (Pneumovax) 07/28/2020 Seasonal [...] Telephone Encounter - Adelina Rain MD - 03/10/2023 9:57 AM EST Signed Prescriptions: Disp Refills oxyCODONE HCl 5 MG Oral Tablet (Oxy IR) 60 Tab*0 Sig: Take 1 Tablet by mouth every 6 hours as needed for Pain, Severe. Authorizing Provider: ADELINA RAIN * Telephone Encounter - Dixie Lau [facility] - 03/10/2023 9:20 AM ESTPending Prescriptions: Disp Refills oxyCODONE HCl 5 MG Oral Tablet (Oxy IR) 60 Tab*0 Sig: Take 1 Tablet by mouth every 6 hours as needed for Pain, Severe. * Telephone Encounter - Dixie Lau RP - 03/10/2023 9:19 AM EST Refill requested by patient for Oxycodone. Refill remains appropriate and forwarded for your review Thank you, Dixie Lau [facility] Clinical Pharmacist [facility] * Telephone Encounter - Adelina Rain MD - 03/10/2023 7:58 AM EST Pending Prescriptions: Disp Refills oxyCODONE HCl 5 MG Oral Tablet (Oxy IR) 60 Tab*0 Sig: Take 1 Tablet by mouth every 6 hours as needed for Pain, Severe. * Telephone Encounter - Juana Beth [facility] - 03/09/2023 11:57 AM ESTPending Prescriptions: Disp Refills oxyCODONE HCl 5 MG Oral Tablet (Oxy IR) 60 Tab*0 Sig: Take 1 Tablet by mouth every 6 hours as needed for Pain, Severe. * Telephone Encounter - Juana Beth [facility] - 03/09/2023 11:56 AM EST I have reviewed the patients controlled substance dispensing history in the Prescription Drug Monitoring Program in compliance with the [facility] regulations before prescribing a controlled substance. PDMP checked on 03/09/2023. Pending Prescriptions: Disp Refills oxyCODONE HCl 5 MG Oral Tablet (Oxy IR) 60 Tab*0 Sig: Take 1 Tablet by mouth every 6 hours as needed for Pain, Severe. Last Visit: 02/18/2023 (in office), Visit date not found (telemedicine) Next Visit: 06/14/2023 Date medication was last filled: 02/24/23 Date medication is due for refill: 02/28/23 Pharmacy: [facility] Is this request for a controlled substance? Yes and Urine Drug Screen was completed Toxicology results: Results for orders placed or performed in visit on 10/28/22 PAIN MANAGEMENT DRUG PANEL, URINE W/ INTERPRETATION Result Value Compliance Interpretation Based on the medication information provided: The positive oxycodone screening result is CONSISTENT with oxycodone use. Confirmatory testing is available upon request. The presence of THC metabolite is INCONSISTENT with the information provided. Amphetamines Screen, U Negative Benzodiazepines Screen, U Negative Cannabinoids Screen, U Refer to confirmation results (A) Cocaine Metabolite Screen, U Negative Fentanyl Screen, U Negative Hydrocodone Screen, U Negative Methadone Metabolite Screen, U Negative Morphine/Codeine Screen, U Negative Oxycodone Screen, U Positive (A) Valid Interpretation Normal Creatinine, U 67 Narrative Cutoff Concentrations: Drug Level Amphetamines 500 ng/mL Benzodiazepines 100 ng/mL Cannabinoids 50 ng/mL Cocaine Metabolite 150 ng/mL Fentanyl 1 ng/mL Hydrocodone / Hydromorphone 300 ng/mL Methadone Metabolite 100 ng/mL Morphine / Codeine 300 ng/mL Oxycodone / Oxymorphone 100 ng/mL Screening results are presumptive and can only be used for medical purposes. Confirmatory testing is available upon request. Please approve if appropriate. Thanks, Juana Beth, PharmD Clinical Pharmacist [facility] ([facility] - Formerly Telepharmacy) [phone] 03/09/2023 11:56 AM * Telephone Encounter - Renata Newman CPhT - 03/08/2023 1:19 PM EST Did you pend patient's preferred pharmacy and medication before forwarding?yes Pharmacy: [facility] Pending Prescriptions: Disp Refills oxyCODONE HCl 5 MG Oral Tablet (Oxy IR) 60 Tab*0 Sig: Take 1 Tablet by mouth every 6 hours as needed for Pain, Severe. Last Visit: 02/18/2023 (in office), Visit date not found (telemedicine) Next Visit: 06/14/2023 If no future appointments scheduled, and last appointment is greater than a year ago, please schedule patient for a follow-up appointment Last date the medication was ordered: 02/23/23 Is this request for a controlled substance?Yes, What was the last refill date 02/23/23 w/ quantity 60 and dosage 5 and Urine Drug Screen was completed Urine Drug Screen: Results for orders placed or performed in visit on 10/28/22 PAIN MANAGEMENT DRUG PANEL, URINE W/ INTERPRETATION Result Value Compliance Interpretation Based on the medication information provided: The positive oxycodone screening result is CONSISTENT with oxycodone use. Confirmatory testing is available upon request. The presence of THC metabolite is INCONSISTENT with the information provided. Amphetamines Screen, U Negative Benzodiazepines Screen, U Negative Cannabinoids Screen, U Refer to confirmation results (A) Cocaine Metabolite Screen, U Negative Fentanyl Screen, U Negative Hydrocodone Screen, U Negative Methadone Metabolite Screen, U Negative Morphine/Codeine Screen, U Negative Oxycodone Screen, U Positive (A) Valid Interpretation Normal Creatinine, U 67 Narrative Cutoff Concentrations: Drug Level Amphetamines 500 [...] Labs: Lab Results Component Value Date/Time CREAT 0.8 11/11/2022 02:17 PM CREAT 0.8 04/16/2022 12:00 AM CREAT 0.9 01/28/2019 02:24 PM POTASSIUM 4.0 11/11/2022 02:17 PM POTASSIUM 3.0 (A) 04/16/2022 12:00 AM POTASSIUM 3.9 01/28/2019 02:24 PM LDLCALC 43 03/21/2022 06:01 AM LDLCALC 120 06/14/2018 09:08 AM ALT 14 09/29/2022 10:53 AM ALT 16 01/28/2019 02:24 PM HGBA1C 5.0 11/11/2022 02:17 PM HGBA1C 6.0 03/21/2022 06:01 AM documented in this encounter Plan of Treatment Upcoming Encounters Date Type Department Care Team (Late st Contact Info) Description 03/11/2023 9:30 AM EST Telemedicine Pharmacy, [place] [address] [phone] [place], [facility] [address] [address] 03/21/2023 1:40 PM EST Office Visit Otolaryngology, [place]ie Sánchez [address] [address] Sorin Burks PA-C [address] [address] 03/22/2023 3:30 PM EST Nurse Only Ancillary 1st Floor, [place] [address] [address] [place] Nurse Annual Wellness, RN [address] [address] 03/28/2023 1:40 PM EST Telemedicine Pharmacy, [place] [address] [address] Pharmacist2, [facility] [place] [address] [address] 04/25/2023 9:00 AM EDT Office Visit Otolaryngology, [place]ie Sánchez [address] [address] [facility] Audiology Tech [place] [address] [facility] [place] [address] 06/14/2023 11:20 AM EDT Office Visit Family Practice, [place] [address] [phone] Adelina Rain MD [address] [place] [address] 01/09/2024 10:30 AM EST Appointment Radiology, [place] [address] [address] Scheduled Procedures Name Priority Associated Diagnoses Date/Ti [...] displacement, lumbosacral region documented in this encounter Additional Health Concerns Infection Onset Date Last Indicated Resolved Time RSV 02/15/2023 02/15/2023 03/08/2023 12:1 9 AM EST documented as of this encounter Care Teams Hog Pusher Relationship Specialty Start Date End Date Adelina Rain MD [address] [phone] PCP - General Family Medicine 02/18/22 documented as of this encounter
--- OUTSIDE RECORDS SUMMARY | 2023-04-16 10:51 | External Medical Summary | Summary of Care ---
Author Name Unknown Organization [facility] Address [address] [place] [address] Phone [phone] Care Team Providers Care Window Draper Name Role Phone Adelina Rain MD Primary Care Provider Reason for Visit * Reason Onset Date Comments Medication Question 02/23/2023 Encounter Details Date Type Department Care Team (Late st Contact Info) Description 02/23/2023 Refill Pharmacy Call Center [phone] [phone] [facility] [address] [facility] [place] [address] Acute exacerbation of chronic low back pain; [...] A1c goal of less than 7.0% ([facility]) Use for injections. Injects trulicity once weekly 100 Each 1 03/26/2022 Active OneTouch Verio In Vitro Strip (Glucose Blood)Indications:Ty pe 2 diabetes mellitus with hemoglobin A1c goal of less than 8.0% (HCC) Use up to 4 times a day E11.9 400 Strip 2 04/29/2022 Active OneTouch Delica Plus [id number] :Type 2 diabetes mellitus with hemoglobin A1c [...] 02/11/2023 Active Amoxicillin 500 MG Oral Capsule (Amoxil)Indications: Left ear pain Take 1 Capsule by mouth in the morning and 1 Capsule at noon and 1 Capsule before bedtime. Do all this for 10 days. 30 Capsule 0 02/15/2023 02/25/19 24 Active Ofloxacin 0.3 % Otic Solution (Floxin)Indications: Left ear pain Administer 10 Drops into the left ear in the morning for 10 days. In affected ear for 10 days.. 5 mL 0 02/15/2023 02/25/19 24 Active Albuterol Sulfate HFA 108 (90 Base) [...] 01/03/2023 Active predniSONE 20 MG Oral Tablet (Deltasone)Indicatio ns:Bilateral hearing loss, unspecified hearing loss type Take 3 Tablets by mouth in the morning for 8 days. 24 Tablet 0 02/18/2023 02/26/19 24 Active oxyCODONE HCl 5 MG Oral Tablet (Oxy IR)Indications:Acute exacerbation of chronic low back pain,Other intervertebral disc displacement, lumbosacral region Take 1 Tablet by mouth every 6 hours as needed for Pain, Severe. 60 Tablet 0 02/23/2023 Active oxyCODONE HCl 5 MG Oral Tablet (Oxy IR)Indications:Acute exacerbation of chronic low back pain,Other intervertebral disc displacement, lumbosacral region Take 1 Tablet by mouth every 6 hours as needed for Pain, Severe. 60 Tablet 0 02/11/2023 02/23/19 24 Discontinu ed(Refill) documented as of this encounter (statuses as of 02/23/2023) Active Problems Problem Noted Date Diagnosed Date Anxiety and depression 02/16/2023 Generalized osteoarthritis 10/28/2022 Predominant disturbance of emotions 09/23/2022 Food insecurity 08/16/2022 Overview: Per [facility] Protocol Type 2 diabetes mellitus [...] yrs 12/10/2022,06/02/2022 Pneumococcal Conjugate Vacci ne, 20-valent ([id number]) 04/14/2022 Pneumococcal Polysaccharide PPV23 (Pneumovax) 07/28/2020 Seasonal [...] Telephone Encounter - Adelina Rain MD - 02/23/2023 1:12 PM EST Signed Prescriptions: Disp Refills oxyCODONE HCl 5 MG Oral Tablet (Oxy IR) 60 Tab*0 Sig: Take 1 Tablet by mouth every 6 hours as needed for Pain, Severe. Authorizing Provider: ADELINA RAIN * Telephone Encounter - Dixie Lau RPh - 02/23/2023 10:27 AM EST Refill requested by patient for Oxycodone. Refill remains appropriate and forwarded for your review Thank you, Dixie Lau [facility] Clinical Pharmacist [facility] * Telephone Encounter - Ruth Abernathy, lead welder - 02/23/2023 8:09 AM EST Caller's name: Pt Preferred call back number(OFFICE NUMBER FOR ): [phone] Reason for call: Refill Pt stating she needs a refill for her oxyCODONE HCl 5 MG Oral Tablet (Oxy IR). Pt's pharmacy will be closed on 02/26/23. Pt stating she will need enough to get her to her next appt on 03/11/23. Ruth Abernathy Beauty Artist [facility] ([facility]) (Formerly Telepharmacy) 02/23/2023, 8:09 AM documented in this encounter Plan of Treatment Upcoming Encounters Date Type Department Care Team (Late st Contact Info) Description 03/11/2023 9:30 AM EST Telemedicine Pharmacy, [place] [address] [address] [facility] [address] [address] 04/25/2023 9:00 AM EDT Office Visit OtolaryngologyClaire [place] [address] [address] Sorin Burks PA-C [address] [address] 04/25/2023 9:00 AM EDT Office Visit OtolaryngologyClaire [place] [address] [address] [place], Audiology Tech [facility] [place] [address] 06/14/2023 11:20 AM EDT Office Visit [facility], [place] [address] [phone] Adelina Rain MD [address] [address] 01/09/2024 10:30 AM EST Appointment Radiology, [place] [address] [address] Scheduled Procedures Name Priority Associated Diagnoses Date/Ti me COLONOSCOPY FLEXIBLE PROXIMA L DIAGNOSTIC Recall Screening for colon cancer Health Maintenance Due Date Last Done Comments DISCUSS TOBACCO CESSATION (REFER TO SMARTSET #3299) 1975 COVID-19 Vaccine (#1) 04/30/1975 Hepatitis B [...] documented as of this encounter Care Teams Window Draper Relationship Specialty Start Date End Date Adelina Rain MD [address] [phone] PCP - General Family Medicine 02/18/22 documented as of this encounter
--- OUTSIDE RECORDS SUMMARY | 2023-04-16 10:51 | External Medical Summary | Summary of Care ---
Author Name Unknown Organization [facility] Address [address] [facility] [place] [address] Phone [phone] Care Team Providers Care Tarper Name Role Phone Carlitos Rain MD Primary Care Provider Encounter Details Date Type Department Care Team (Late st Contact Info) Description 02/18/2023 Telephone [facility] [place] [address] Caitlin López MD [facility] [place] [address] Allergies Active Allergy Reactions Criticality Noted [...] A1c goal of less than 7.0% ([facility]) Use for injections. Injects trulicity once weekly 100 Each 1 03/26/2022 Active OneTouch Verio In Vitro Strip (Glucose Blood)Indications:Typ e 2 diabetes mellitus with hemoglobin A1c goal of less than 8.0% (HCC) Use up to 4 times a day E11.9 400 Strip 2 04/29/2022 Active OneTouch Delica Plus [id number]: Type 2 diabetes mellitus with hemoglobin A1c [...] yrs 12/10/2022,06/02/2022 Pneumococcal Conjugate Vacci ne, 20-valent ([id number]) 04/14/2022 Pneumococcal Polysaccharide PPV23 (Pneumovax) 07/28/2020 Seasonal [...] encounter Miscellaneous Notes * Telephone Encounter - Rosy Castillo OSA - 02/18/2023 1:35 PM EST Pt has been scheduled. JEFERSON Crane * Telephone Encounter - Jackie Harrell LPN [...] PM EST Nurse Only Ancillary 1st Floor, [place] [address] [address] Nurse Camryn Iglesias [address] [address] 03/11/2023 9:30 AM EST Telemedicine Pharmacy, [place] [address] [address] [facility] [address] [address] 04/25/2023 9:00 AM EDT Office Visit Otolaryngology, [place]ie Torres [address] [address] Sorin Burks PA-C [address] [place] [address] 04/25/2023 9:00 AM EDT Office Visit Otolaryngology, [place] Sánchez [address] [address] [facility], Audiology Tech [facility] [address] [facility] [place] [address] 06/14/2023 11:20 AM EDT Office Visit Family Practice, [place] [address] [phone] Carlitos Rain MD [address] [address] 01/09/2024 10:30 AM EST Appointment Radiology, [place] [address] [address] Scheduled Procedures Name Priority Associated Diagnoses Date/Ti me COLONOSCOPY FLEXIBLE PROXIMA L DIAGNOSTIC Recall Screening for colon cancer Health Maintenance Due Date Last Done Comments DISCUSS TOBACCO CESSATION (REFER TO SMARTSET #3291) 1974 COVID-19 Vaccine (#1) 04/30/1975 Hepatitis B (3 of 3 - 19+ 3-dose series) 02/04/2023 12/10/2022, 06/02/2022 COLONOSCOPY-ANNUAL AGES 18-100 04/08/2023 04/07/2022, 04/07/2022 HbA1c 05/13/2023 11/11/2022, 0407/2022, 03/21/2022 Albumin/Creatinine Ratio 06/03/2023 06/02/2022 Diabetic Foot [...] documented as of this encounter Care Teams Tarper Relationship Specialty Start Date End Date Carlitos Rain MD [address] [address] PCP - General Family Medicine 02/18/22 documented as of this encounter
--- OUTSIDE RECORDS SUMMARY | 2023-04-16 10:51 | External Medical Summary | Summary of Care ---
Author Name Unknown Organization [facility] Address [address] [place] [address] Phone [phone] Care Team Providers Care Printing Technician Name Role Phone Carlitos Rain MD Primary Care Provider Encounter Details Date Type Department Care Team (Late st Contact Info) Description 02/18/2023 Telephone [facility] [address] Caitlin López MD [facility] [address] Allergies Active Allergy Reactions Criticality Noted [...] A1c goal of less than 7.0% ([facility]) Use for injections. Injects trulicity once weekly 100 Each 1 03/26/2022 Active OneTouch Verio In Vitro Strip (Glucose Blood)Indications:Typ e 2 diabetes mellitus with hemoglobin A1c goal of less than 8.0% (HCC) Use up to 4 times a day E11.9 400 Strip 2 04/29/2022 Active OneTouch Delica Plus [id number]: Type 2 diabetes mellitus with hemoglobin A1c [...] yrs 12/10/2022,06/02/2022 Pneumococcal Conjugate Vacci ne, 20-valent ([id number]) 04/14/2022 Pneumococcal Polysaccharide PPV23 (Pneumovax) 07/28/2020 Seasonal [...] encounter Miscellaneous Notes * Telephone Encounter - Drea Adamson OSA - 02/18/2023 11:43 AM EST Please assist with 3 day URGENT referral. Thank you! documented in this encounter Plan of Treatment Upcoming Encounters Date Type Department Care Team (Late st Contact Info) Description 02/22/2023 12:00 PM EST Nurse Only Ancillary 1st Floor, [place] [address] [address] [place] Nurse Fp [place] [address] 03/11/2023 9:30 AM EST [place] [address] [place] [facility] [place] [address] [address] 06/14/2023 11:20 AM EDT Office [place] [phone] Carlitos Rain MD [address] [place] [address] 01/09/2024 10:30 AM EST Appointment [place], [place] [address] Scheduled Procedures Name Priority Associated Diagnoses Date/Ti me COLONOSCOPY FLEXIBLE PROXIMA L DIAGNOSTIC Recall Screening for colon cancer Health Maintenance Due Date Last Done Comments DISCUSS TOBACCO CESSATION (REFER TO SMARTSET #1162) 1974 COVID-19 Vaccine (#1) 04/30/1975 Hepatitis B [...] documented as of this encounter Care Teams Printing Technician Relationship Specialty Start Date End Date Carlitos Rain MD [address] [address] PCP - General Family Medicine 02/18/22 documented as of this encounter
--- OUTSIDE RECORDS SUMMARY | 2023-04-16 10:52 | External Medical Summary | Summary of Care ---
Author Name Unknown Organization [facility] Address [address] [place] [address] Phone [phone] Care Team Providers Care Building Construction Professor Name Role Phone Adelina Rain MD Primary Care Provider Reason for Visit * Reason Comments eRx-Medication Refill Encounter Details Date Type Department Care Team (Late st Contact Info) Description 02/11/2023 Refill [facility] [address] [facility] [place] [address] Ale Fonatine CRNP [address] [place] [address] Allergies Active Allergy Reactions Criticality Noted Date Comments Pollen 02/10/2022 documented as of this encounter (statuses as of 02/14/2023) Medications Medication Sig Dispensed Refills Start Date End Date Status cetirizine (ZYRTEC) 10 MG TabletIndications:S easonal allergies Take 1 Tab by mouth daily. 90 Tab 3 9 Active Montelukast Sodium 10 MG Oral Tablet Take by mouth daily. 0 1 Active Alcohol Prep Pads 70 % PadIndications:Type 2 diabetes mellitus with hemoglobin A1c goal of less than 7.0% ([facility]) Use for injections. Injects trulicity once weekly 100 Each 1 3 Active OneTouch Verio In Vitro Strip (Glucose Blood)Indications:T ype 2 diabetes mellitus with hemoglobin A1c goal of less than 8.0% (HCC) Use up to 4 times a day E11.9 400 Strip 2 3 Active OneTouch Delica Plus [id number] s:Type 2 diabetes mellitus with hemoglobin A1c goal of less than 8.0% (HCC) Up to 4 times a day E11.9 400 Each 2 3 Active Ondansetron 4 MG Oral Tablet DisintegratingIndic ations:Nausea without vomiting Place 1 Tablet on tongue every 8 hours as needed for Nausea. dissolve on tongue. 20 Tablet 0 3 Active Esomeprazole Magnesium 40 MG Oral Capsule Delayed Release (NexIUM)Indications :Gastroesophageal reflux disease, unspecified whether esophagitis present Take 1 Capsule by mouth daily. 30-60 min prior to the first main meal of the day. 90 Capsule 1 3 Active Additional Information Patient not taking.Reported on 12/10/2022 metFORMIN HCl ER 500 MG Oral Tablet Extended Release 24 Hour (Glucophage XR)Indications:Type 2 diabetes mellitus with hemoglobin A1c goal of less than 8.0% (HCC) Take 1 Tablet by mouth in the morning. 90 Tablet 3 3 Active Atorvastatin Calcium 10 MG Oral Tablet (Lipitor)Indication s:Mixed hyperlipidemia TAKE 1 TABLET BY MOUTH DAILY 90 Tablet 3 3 Active Vitamin D3 50 MCG (2000 UT) Oral Capsule TAKE 1 CAPSULE BY MOUTH DAILY 90 Capsule 3 3 Active Lisinopril 5 MG Oral Tablet (Prinivil)Indicatio ns:Essential (primary) hypertension TAKE 1 TABLET BY MOUTH DAILY 90 Tablet 3 3 Active Albuterol Sulfate HFA 108 (90 Base) MCG/ACT Inhalation Aerosol Solution As needed 0 2 Active Nicotine 21 MG/24HR Transdermal Patch 24 Hour (Nicoderm CQ) APPLY 1 PATCH DAILY DIRECTED 0 3 Active Dulaglutide 1.5 MG/0.5ML Subcutaneous Solution Pen-injector (Trulicity)Indicati ons:Type 2 diabetes mellitus with hemoglobin A1c goal of less than 7.0% (HCC) Inject 1.5 mg under the skin once a week. 6 mL 2 3 Active busPIRone HCl 5 MG Oral Tablet (Buspar) Take 1 Tablet by mouth in the morning and 1 Tablet at noon and 1 Tablet before bedtime. 90 Tablet 5 3 Active Esomeprazole Magnesium 40 MG Oral Capsule Delayed Release (NexIUM)Indications :Gastroesophageal reflux disease, unspecified whether esophagitis present Take 1 Capsule by mouth daily. 30-60 min prior to the first main meal of the day. 90 Capsule 1 3 Active traZODone HCl 50 MG Oral Tablet (Desyrel) Take 1 Tablet by mouth at bedtime. 30 Tablet 5 3 Active buPROPion HCl ER (XL) 150 MG Oral Tablet Extended Release 24 Hour (Wellbutrin XL)Indications:Anxi ety and depression Take 1 Tablet by mouth in the morning. 30 Tablet 5 3 Active Topiramate 50 MG Oral Tablet (topAMAX) Take 1 Tablet by mouth in the morning and 1 Tablet before bedtime. 60 Tablet 5 3 Active Pramipexole Dihydrochloride 0.5 MG Oral Tablet (Mirapex) Take 1 Tablet by mouth at bedtime. 30 Tablet 5 4 Active oxyCODONE HCl 5 MG Oral Tablet (Oxy IR)Indications:Acut e exacerbation of chronic low back pain,Other intervertebral disc displacement, lumbosacral region Take 1 Tablet by mouth every 6 hours as needed for Pain, Severe. 60 Tablet 0 4 Active Pregabalin 150 MG Oral Capsule (Lyrica)Indications :Lumbosacral radiculopathy Take 1 Capsule by mouth in the morning and 1 Capsule at noon and 1 Capsule before bedtime. 90 Capsule 1 4 Active Pramipexole Dihydrochloride 0.5 MG Oral Tablet (Mirapex) Take 1 Tablet by mouth at bedtime. 30 Tablet 5 3 02/14/19 24 Discontinued documented as of this encounter (statuses as of 02/14/2023) Active Problems Problem Noted Date Diagnosed Date Generalized osteoarthritis 10/28/2022 Predominant disturbance of emotions 09/23/2022 Food insecurity 08/16/2022 Overview: Per [facility] Protocol Type 2 diabetes mellitus wit [...] intervertebral disc displacement, lumbosac ral region 06/09/2018 Sacroiliitis, not elsewhere classified 9 Primary osteoarthritis of both knees 06/09/2018 Chronic pain syndrome 06/09/2018 Cervicalgia 06/09/2018 Lumbosacral radiculopathy 06/09/2018 documented as of this encounter (statuses as of 02/14/2023) Resolved Problems Problem Noted Date Diagnosed Date Resolved Date Nausea without vomiting 02/18/2022 08/0 02/2022 Migraine without status migr ainosus, not intractable 02/18/2022 09/07/2022 Rheumatoid arthritis involvi ng multiple sites with positive rheumatoid factor 02/18/2022 10/29/19 23 Acute calculous cholecystitis 01/29/2019 09/07/2022 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 10/02/2018 10/13/2018 BMI 45.0-49.9, adult 06/09/2018 023 Morbid obesity due to excess calories 06/09/2018 10/02/2018 Hematuria, gross 10/11/2014 06/09/2018 Urgency of urination 10/11/2014 019 Urinary frequency 10/11/2014 06/09/2018 documented as of this encounter (statuses as of 02/14/2023) Immunizations Name Administration Dates Next Due Hepatitis B, 20+ yrs 12/10/2022,06/02/2022 Pneumococcal Conjugate Vacci ne, 20-valent (Nylctab24) 04/14/2022 Pneumococcal Polysaccharide PPV23 (Pneumovax) 07/28/2020 Seasonal [...] Answer Date Recorded PHQ Adult Total Score 7 12/10/2022 Hunger Vital Sign Answer Date Recorded Within the past 12 months, y ou worried that your food would run out before you got the money to buy more. Sometimes true Within the past 12 months, t he food you bought just didn't last and you didn't have money to get more. Sometimes true 06/2022 Sex and Gender Information Value Date Recorded Sex Assigned at Female 10/13/2018 11:40 AM EDT Gender Identity Female 10/13/2018 11:40 AM EDT Sexual Orientation Straight 10/13/2018 11 :40 AM EDT Job Start Date Occupation Industry Not on file Not on file Not on file documented as of this encounter Miscellaneous Notes * Telephone Encounter - Adelina Rain MD - 02/14/2023 11:04 AM EST Signed Prescriptions: Disp Refills Pramipexole Dihydrochloride 0.5 MG Oral Ta*30 Tab*5 Sig: Take 1 Tablet by mouth at bedtime. Authorizing Provider: ADELINA RAIN * Telephone Encounter - Rehana Mukherjee [facility] - 02/14/2023 7:31 AM ESTPending Prescriptions: Disp Refills Pramipexole Dihydrochloride 0.5 MG Oral Ta*30 Tab*5 Sig: Take 1 Tablet by mouth at bedtime. * Telephone Encounter - Rehana Mukherjee [facility] - 02/14/2023 7:31 AM EST Did you pend patient's preferred pharmacy and medication before forwarding?yes Pharmacy: [facility] Pending Prescriptions: Disp Refills Pramipexole Dihydrochloride 0.5 MG Oral T*30 Tab*5 Sig: Take 1 Tablet by mouth at bedtime. Last Visit: 12/10/2022 (in office), Visit date not found (telemedicine) Next Visit: 06/14/2023 If no future appointments scheduled, and last appointment is greater than a year ago, please schedule patient for a follow-up appointment Last date the medication was ordered: 11/04/22 Is this request for a controlled substance?No Urine Drug Screen: Results for orders placed [...] 02:17 PM HGBA1C 6.0 03/21/2022 06:01 AM * Telephone Encounter - Oren Grigsby - 02/12/2023 2:48 PM ESTPending Prescriptions: Disp Refills Pramipexole Dihydrochloride 0.5 MG Oral Ta*30 Tab*5 Sig: Take 1Tablet by mouth at bedtime. documented in this encounter Plan of Treatment Upcoming Encounters Date Type Department Care Team (Late st Contact Info) Description 02/15/2023 4:20 PM EST Office Visit [facility] [place] [address] [phone] Caitlin López MD [address] [id number] 03/11/2023 9:30 AM EST Telemedicine Pharmacy, [place] [address] [phone] [facility] [address] [address] 06/14/2023 11:20 AM EDT Office Visit [facility] [place] [address] [phone] Adelina Rain MD [address] [address] 01/09/2024 10:30 AM EST Appointment Radiology, [place] [address] [id number] Scheduled Procedures Name Priority Associated Diagnoses Date/Ti [...] exists Diabetic Eye Exam 11/23/2023 11/22/2022, 04/07/2022 Depression Screening 12/11/2023 12/10/2022 Mammogram 01/06/2024 01/05/2023, 06/09/2018 Lipid Panel 03/21/2027 03/21/2022, 10/2021, 02/19/2019, Additional [...] filedocumented as of this encounter Care Teams Building Construction Professor Relationship Specialty Start Date End Date Adelina Rain MD [address] [id number] PCP - General Family Medicine 02/18/22 documented as of this encounter
--- OUTSIDE RECORDS SUMMARY | 2023-04-16 10:52 | External Medical Summary | Summary of Care ---
Author Name Unknown Organization [facility] Address [address] [facility] [place] [address] Phone [phone] Care Team Providers Care [employer] Name Role Phone Carlitos Rain MD Primary Care Provider Encounter Details Date Type Department Care Team (Late st Contact Info) Description 02/18/2023 Telephone [facility] [place] [address] Caitlin López MD [facility] [place] [address] Allergies Active Allergy Reactions Criticality Noted [...] hemoglobin A1c goal of less than 7.0% ([facility]) Use for injections. Injects trulicity once weekly 100 Each 1 03/26/2022 Active OneTouch Verio In Vitro Strip (Glucose Blood)Indications:Typ e 2 diabetes mellitus with hemoglobin A1c goal of less than 8.0% (HCC) Use up to 4 times a day E11.9 400 Strip 2 04/29/2022 Active OneTouch Delica Plus [id number]: Type 2 diabetes mellitus with hemoglobin A1c [...] Active Problems Problem Noted Date Diagnosed Date Morbid (severe) obesity due to excess calories 0 02/16/2023 Anxiety and depression 02/16/2023 Generalized osteoarthritis 10/28/2022 Predominant disturbance of emotions 09/23/2022 Food insecurity 08/16/2022 Overview: [facility] Protocol Type 2 diabetes mellitus [...] yrs 12/10/2022,06/02/2022 Pneumococcal Conjugate Vacci ne, 20-valent (Ompfkii23) 04/14/2022 Pneumococcal Polysaccharide PPV23 (Pneumovax) 07/28/2020 Seasonal [...] Team (Late st Contact Info) Description 02/18/2023 12:00 PM EST Office Visit [facility] [place] [address] [address] [phone] Caitlin López MD [address] [address] Bilateral hearing loss, unspecified hearing loss type*; Dysfunction of both eustachian tubes 02/22/2023 12:00 PM EST Nurse Only Ancillary 1st Floor, [place] [address] [address] Kelsie, Nurse [facility] [address] [id number] 03/11/2023 9:30 AM EST Telemedicine Pharmacy, [place] [address] [address] [facility] [address] [id number] 06/14/2023 11:20 AM EDT Office Visit [facility], [place] [address] [phone] Carlitos Rain MD [address] [address] 01/09/2024 10:30 AM EST Appointment Radiology, [place] [address] [address] Scheduled Procedures Name Priority Associated Diagnoses Date/Ti [...] documented as of this encounter Care Teams [employer] Relationship Specialty Start Date End Date Carlitso Rain MD [address] [phone] PCP - General Family Medicine 02/18/22 documented as of this encounter
--- OUTSIDE RECORDS SUMMARY | 2023-04-16 10:52 | External Medical Summary ---
Author Name Unknown Address Unknown Organization K01:[facility] - [address] [facility] [place] [address] Laboratory Report Ordering Provider Test Date Status JAMES RICHARDSON 02/15/2023 16:06:39 Final Observation Date Value Abnormality Reference (Units ) Status Adenovirus DNA [Presence] in Nasopharynx by TASHIA with non-probe detection 02/15/2023 16:06:39 Negative Negative Final Human coronavirus 229E RNA [Presence] in Nasopharynx by TASHIA with non-probe detection 02/15/2023 16:06:39 Negative Negative Final Human coronavirus HKU1 RNA [Presence] in Nasopharynx by TASHIA with non-probe detection 02/15/2023 16:06:39 Negative Negative Final Human coronavirus NL63 RNA [Presence] in Nasopharynx by TASHIA with non-probe detection 02/15/2023 16:06:39 Negative Negative Final Human coronavirus OC43 RNA [Presence] in Nasopharynx by TASHIA with non-probe detection 02/15/2023 16:06:39 Negative Negative Final SARS-CoV-2 (COVID-19) RNA [Presence] in Nasopharynx by TASHIA with non-probe detection 02/15/2023 16:06:39 Negative Negative Final Human metapneumovirus RNA [Presence] in Nasopharynx by TASHIA with non-probe detection 02/15/2023 16:06:39 Negative Negative Final Rhinovirus+Enterovirus RNA [Presence] in Nasopharynx by TASHIA with non-probe detection 02/15/2023 16:06:39 Negative Negative Final Influenza virus A RNA [Presence] in Nasopharynx by TASHIA with non-probe detection 02/15/2023 16:06:39 Negative Negative Final Influenza virus B RNA [Presence] in Nasopharynx by TASHIA with non-probe detection 02/15/2023 16:06:39 Negative Negative Final Parainfluenza virus 1 RNA [Presence] in Nasopharynx by TASHIA with non-probe detection 02/15/2023 16:06:39 Negative Negative Final Parainfluenza virus 2 RNA [Presence] in Nasopharynx by TASHIA with non-probe detection 02/15/2023 16:06:39 Negative Negative Final Parainfluenza virus 3 RNA [Presence] in Nasopharynx by TASHIA with non-probe detection 02/15/2023 16:06:39 Negative Negative Final Parainfluenza virus 4 RNA [Presence] in Nasopharynx by TASHIA with non-probe detection 02/15/2023 16:06:39 Negative Negative Final Respiratory syncytial virus RNA [Presence] in Nasopharynx by TASHIA with non-probe detection 02/15/2023 16:06:39 Positive Abnormal Negative Final Respiratory Syncytial virus detected by PCR (amplified probe). Test results reported to [facility]. Bordetella pertussis.pertuss is toxin promoter region [Presence] in Nasopharynx by TASHIA with non-probe detection 02/15/2023 16:06:39 Negative Negative Final Chlamydophila pneumoniae DNA [Presence] in Nasopharynx by TASHIA with non-probe detection 02/15/2023 16:06:39 Negative Negative Final Mycoplasma pneumoniae DNA [P resence] in Nasopharynx by TASHIA with non-probe detection 02/15/2023 16:06:39 Negative Negative Final Bordetella parapertussis IS1 001 DNA [Presence] in Nasopharynx by TASHIA with non-probe detection 02/15/2023 16:06:39 Negative Negative F inal
The primers that detect Rhinovirus may cross react with some Enterorviruses. The validation of bronchial specimens, tracheal aspirates, and throats for this assay was developed and performance characteristics determined by [employer]. The validation of alternate specimen types has not been cleared or approved by the U.S. Food and Drug Administration (FDA). It has been determined that such clearance or approval is not necessary. Performing Location [facility] - [facility] [address] [facility] [address] [facility] [address]
--- OUTSIDE RECORDS SUMMARY | 2023-04-16 10:52 | External Medical Summary | Summary of Care ---
Author Name Unknown Organization [facility] Address [address] [place] [address] Phone [phone] Care Team Providers Care Administrative Support Assistant Name Role Phone Carlitos Rain MD Primary Care Provider Reason for Visit * Reason Comments Acute Reports left ear roselia n, diminished hearing, bleeding. Pressure in head, runny nose, cough. Encounter Details Date Type Department Care Team (Late st Contact Info) Description 02/15/2023 4:20 PM EST Office Visit [facility] [address] [place] [address] Caitlin López MD [address], [place] [id number] Upper respiratory tract infection, unspecified type*; Left ear pain; Impacted cerumen of left ear; Tobacco use disorder; Wheezing; Type 2 diabetes mellitus with hemoglobin A1c goal of less than 7.0% ([facility]) Allergies Active Allergy Reactions Criticality Noted Date [...] Strip 2 04/29/2022 Active OneTouch Delica Plus [id number] :Type 2 diabetes mellitus with hemoglobin A1c [...] 7.0% ([facility]) Inject 1.5 mg under the skin once [...] 02/11/2023 Active Pregabalin 150 MG Oral Capsule (Lyrica)Indications: [...] As needed 18 g 2 02/15/2023 Active predniSONE 20 MG Oral Tablet (Deltasone)Indicatio ns:Wheezing Take 2 Tablets by mouth in the morning for 5 days. 10 Tablet 0 02/15/2023 02/20/19 24 Active Albuterol Sulfate HFA 108 (90 Base) MCG/ACT Inhalation Aerosol Solution As needed 0 11/09/2021 02/15/19 24 Discontinu ed(Refill) documented as of this [...] yrs 12/10/2022,06/02/2022 Pneumococcal Conjugate Vacci ne, 20-valent ([id number]) 04/14/2022 Pneumococcal Polysaccharide PPV23 (Pneumovax) 07/28/2020 Seasonal [...] Sign Reading Time Taken Comments Blood Pressure 118/78 02/15/2023 3:42 PM EST Pulse 77 02/15/2023 3:42 PM EST Temperature 37.2 C (98.9 F) 02/15/2023 3:42 PM ES T Respiratory Rate 22 02/15/2023 3:42 PM EST Oxygen Saturation 97% 02/15/2023 3:42 PM EST Inhaled Oxygen Concentration - - Weight 77.8 kg (171 lb 8 oz) 02/15/2023 3:42 PM EST Height - - Body Mass Index 32.4 09/29/2022 10:18 AM EDT documented in this encounter Progress Notes * Caitlin López MD - 02/15/2023 3:48 PM EST Images from the original note were not included. History of Present Illness Caren Johnson is a 47 year old female that presents for Acute (Reports left ear pain, diminishedhearing, bleeding. Pressure in head, runny nose, cough.) Acute visit. Patient is sick for 4 days, left ear was bleeding on Tuesday (prior Q-tip use), decreased hearing from the left ear. Nasal congestion, cough, chills+, +/- wheezing, headache. No fever/no GI symptoms. Patient takes Robitussin OTC Sick contact: denies + tobacco use. Hx asthma Physical Exam Vitals: 02/15/23 1542 Temp: 37.2 C (98.9 F) Pulse: 77 Resp: 22 SpO2: 97% BP: 118/78 BP Readings from Last 3 Encounters: 02/15/23 118/78 12/10/22 110/76 11/08/22 110/70 Wt Readings from Last 3 Encounters: 02/15/23 77.8 kg (171 lb 8 oz) 12/10/22 76.1 kg (167 lb 12.8 oz) 11/08/22 78.9 kg (174 lb) BMI Readings from Last 3 Encounters: 02/15/23 32.40 kg/m 12/10/22 31.71 kg/m 11/08/22 32.88 kg/m Physical Exam Constitutional: General: She is not in acute distress. Appearance: Normal appearance. HENT: Head: Normocephalic and atraumatic. Right Ear: Tympanic membrane, ear canal and external ear normal. Left Ear: External ear normal. Ears: Comments: Left ear canal: evidence of recent bleeding inferior wall, cerumen+, not able to see TM Nose: Congestion present. Mouth/Throat: Mouth: Mucous membranes are moist. Pharynx: Posterior oropharyngeal erythema present. Eyes: Conjunctiva/sclera: Conjunctivae normal. Pupils: Pupils are equal, round, and reactive to light. Cardiovascular: Rate and Rhythm: Normal rate and regular rhythm. Pulses: Normal pulses. Pulmonary: Effort: Pulmonary effort is normal. Breath sounds: Normal breath sounds. Comments: Wheezes with cough Abdominal: General: Bowel sounds are normal. There is no distension. Palpations: Abdomen is soft. Tenderness: There is no abdominal tenderness. Musculoskeletal: Cervical back: Neck supple. Skin: General: Skin is warm and dry. Findings: No rash. Neurological: Mental Status: She is alert and oriented to person, place, and time. Psychiatric: Mood and Affect: Mood normal. Behavior: Behavior normal. I have reviewed the following results: None Assessment and Plan 1. Upper respiratory tract infection, unspecified type - RESPIRATORY PATHOGEN PANEL, PCR; Future 2. Left ear pain - Amoxicillin 500 MG Oral Capsule (Amoxil); Take 1 Capsule by mouth in the morning and 1 Capsule atnoon and 1 Capsule before bedtime. Do all this for 10 days. Dispense: 30 Capsule; Refill: 0 - Ofloxacin 0.3 % Otic Solution (Floxin); Administer 10 Drops into the left ear in the morning for 10 days. In affected ear for 10 days.. Dispense: 5 mL; Refill: 0 3. Impacted cerumen of left ear - will schedule ear lavage next week 4. Tobacco use disorder - cessation advised 5. Wheezing - Albuterol Sulfate HFA 108 (90 Base) MCG/ACT Inhalation Aerosol Solution; Inhale 2 Puffs by mouth every 4 hours as needed for Shortness of Breath or Wheezing. As needed Dispense: 18 g; Refill: 2 - predniSONE 20 MG Oral Tablet (Deltasone); Take 2 Tablets by mouth in the morning for 5 days. Dispense: 10 Tablet; Refill: 0 6. Type 2 diabetes mellitus with hemoglobin A1c goal of less than 7.0% ([facility]) - HbA1c 5.0 Wrap-Up As needed Time: I spent a total of 20-29 minutes (exact time 25 mins) on the date of service in preparation, delivery, and documentation of the care provided to Caren Johnson excluding any time spent in the performance of separately billed services. documented in this encounter Nursing Notes * Mellissa Chacon LPN - 02/15/2023 3:40 PM EST Chief Complaint Patient presents with Acute Reports left ear pain, diminished hearing, bleeding. Pressure in head, runny nose, cough. documented in this encounter Plan of Treatment Upcoming Encounters Date Type Department Care Team (Late st Contact Info) Description 02/22/2023 12:00 PM EST Nurse Only Ancillary 1st Floor, [place] [id number] Nurse Camryn Iglesias [address] [id number] 03/11/2023 9:30 AM EST Telemedicine Pharmacy, [place] [address] [facility] [address] [address] 06/14/2023 11:20 AM EDT Office Visit Family Practice, [place] [address] [phone] Carlitos Rain MD [address] [address] 01/09/2024 10:30 AM EST Appointment Radiology, [place] [id number] Scheduled Procedures Name Priority Associated Diagnoses Date/Ti [...] Procedure Name Priority Date/Time Associated Diagnosis Comments RESPIRATORY PATHOGEN PANEL, PCR Routine 02/15/2023 4:06 PM EST Upper respiratory tract infection, unspecified type documented in this encounter Results * (ABNORMAL) RESPIRATORY PATHOGEN PANEL, PCR (02/15/2023 4:06 PM EST) Adenovirus by PCR Negative Negative 024 11:06 PM EST [facility] Coronavirus 229E by PCR Negative Negative 02/15/2023 11:06 PM EST [facility] Coronavirus HKU1 by PCR Negative Negative 02/15/2023 11:06 PM EST [facility] Coronavirus NL63 by PCR Negative Negative 02/15/2023 11:06 PM EST [facility] Coronavirus OC43 by PCR Negative Negative 02/15/2023 11:06 PM EST [facility] Coronavirus SARS-CoV-2 by PCR Negative Negative 02/15/2023 11:06 PM EST [facility] Human Metapneumovirus by PCR Negative Negative 02/15/2023 11:06 PM EST [facility] Rhinovirus/Enterov irus by PCR Negative Negative 02/15/2023 11:06 PM EST [facility] Influenza A Virus by PCR Negative Negative 02/15/2023 11:06 PM EST [facility] Influenza B Virus by PCR Negative Negative 02/15/2023 11:06 PM EST [facility] Parainfluenza Virus 1 by PCR Negative Negative 02/15/2023 11:06 PM EST [facility] Parainfluenza Virus 2 by PCR Negative Negative 02/15/2023 11:06 PM EST [facility] Parainfluenza Virus 3 by PCR Negative Negative 02/15/2023 11:06 PM EST [facility] Parainfluenza Virus 4 by PCR Negative Negative 02/15/2023 11:06 PM EST [facility] Respiratory Syncytial Virus by PCR Positive(A) Negative 02/15/2023 11:06 PM EST [facility] Comment:Respiratory Syncytia l virus detected by PCR (amplified probe). Test results reported to [facility]. Bordetella pertussis by PCR Negative Negative 02/15/2023 11:06 PM EST [facility] Chlamydia pneumoniae by PCR Negative Negative 02/15/2023 11:06 PM EST [facility] Mycoplasma pneumoniae by PCR Negative Negative 02/15/2023 11:06 PM EST [facility] Bordetella parapertussis by PCR Negative Negative 02/15/2023 11:06 PM EST [facility] Comment: The primers that detect Rhinovirus may cross react with some Enterorviruses. The validation of bronchial specimens, tracheal aspirates, and throats for this assay was developed and performance characteristics determined by [employer]. The validation of alternate specimen types has not been cleared or approved by the U.S. Food and Drug Administration (FDA). It has been determined that such clearance or approval is not necessary. Upper Respiratory Nasopharyngeal swab / Unknown Non-blood Collection / Unknown 02/15/2023 4:06 PM EST 02/15/2023 4:38 PM EST Caitlin López MD LAB MICRO - GENERAL ORDERABLES [facility] [address] [place] [address] documented in this encounter Visit Diagnoses Diagnosis Upper respiratory tract infection, unspecified type- Primary Left ear pain Otalgia, unspecified Impacted cerumen of left ear Impacted cerumen Tobacco use disorder Wheezing Type 2 diabetes mellitus with hemoglobin A1c goal of less than 7.0% ([facility]) documented in this encounter Additional Health Concerns Infection Onset Date Last Indicated Resolved Time Respiratory Rule-Out 02/15/2023 02/15/2023 024 11:06 PM EST documented as of this encounter Care Teams Administrative Support Assistant Relationship Specialty Start Date End Date Carlitos Rain MD [address] [phone] PCP - General Family Medicine 02/18/22 documented as of this encounter
--- OUTSIDE RECORDS SUMMARY | 2023-04-16 10:52 | External Medical Summary | Summary of Care ---
Author Name Unknown Organization [facility] Address [address] [place] [address] Phone [phone] Care Team Providers Care Telephone Mechanic Name Role Phone Carlitos Rain MD Primary Care Provider Reason for Visit * Reason Comments Dosage Adjustment In Person (Anticoag Cl inic) Pain Encounter Details Date Type Department Care Team ([facility] Contact Info) Description 01/25/2023 11:30 AM [facility], [place] [address] [place] [address] [facility] [place] [address] Cervicalgia*; Lumbosacral radiculopathy; Spinal stenosis of lumbar region with radiculopathy; Chronic pain syndrome; Sacroiliitis, not elsewhere classified (HCC) Allergies Active Allergy Reactions Criticality Noted Date Comments Pollen 02/10/2022 documented as of this encounter (statuses as of 01/25/2023) Medications Medication Sig Dispensed Refills Start Date [...] Strip 2 04/29/2022 Active OneTouch Delica Plus [id number]: Type 2 diabetes mellitus with hemoglobin A1c goal of less than 8.0% (HCC) Up to 4 times a day E11.9 400 Each 2 04/29/2022 Active Ondansetron 4 MG Oral Tablet DisintegratingIndicat ions:Nausea without vomiting Place 1 Tablet on tongue every 8 hours as needed for Nausea. dissolve on tongue. 20 Tablet 0 05/19/2022 Active Esomeprazole Magnesium 40 MG Oral Capsule [...] MOUTH DAILY 90 Tablet 3 10/06/2022 Active Albuterol Sulfate HFA 108 (90 Base) MCG/ACT Inhalation Aerosol Solution As needed 0 11/09/2021 Active Nicotine 21 MG/24HR Transdermal Patch 24 Hour (Nicoderm CQ) APPLY 1 PATCH DAILY DIRECTED 0 09/04/2022 Active Dulaglutide 1.5 MG/0.5ML Subcutaneous Solution Pen-injector (Trulicity)Indication s:Type 2 diabetes mellitus with hemoglobin A1c goal of less than 7.0% (HCC) Inject 1.5 mg under the skin once a week. 6 mL 2 10/29/2022 Active Pramipexole Dihydrochloride 0.5 MG Oral Tablet (Mirapex) Take 1 Tablet by mouth at bedtime. 30 Tablet 5 11/04/2022 Active busPIRone HCl 5 MG Oral Tablet [...] at bedtime. 30 Tablet 5 12/10/2022 Active Pregabalin 100 MG Oral Capsule (Lyrica) Take 1 Capsule by mouth in the morning and 1 Capsule at noon and 1 Capsule before bedtime. Increase per MTM instructions. 90 Capsule 1 12/20/2022 Active buPROPion HCl ER (XL) 150 MG Oral Tablet Extended Release 24 Hour (Wellbutrin XL)Indications:Anxiet y and depression Take 1 Tablet by mouth in the morning. 30 Tablet 5 12/29/2022 Active Topiramate 50 MG Oral Tablet (topAMAX) Take 1 Tablet by mouth in the morning and 1 Tablet before bedtime. 60 Tablet 5 01/11/2023 Active oxyCODONE HCl 5 MG Oral Tablet (Oxy IR)Indications:Acute exacerbation of chronic low back pain Take 1 Tablet by mouth every 6 hours as needed for Pain, Severe. 60 Tablet 0 01/11/2023 Active documented as of this encounter (statuses as of 01/25/2023) Active Problems Problem Noted Date Diagnosed Date Generalized osteoarthritis 10/28/2022 Predominant disturbance of emotions 09/23/2022 Food insecurity 08/16/2022 Overview: Per [facility] Protocol Type 2 diabetes mellitus wit [...] as of this encounter (statuses as of 01/25/2023) Resolved Problems Problem Noted Date Diagnosed Date [...] as of this encounter (statuses as of 01/25/2023) Immunizations Name Administration Dates Next Due Hepatitis B, 20+ yrs 12/10/2022,06/02/2022 Pneumococcal Conjugate Vacci ne, 20-valent ([id number]) 04/14/2022 Pneumococcal Polysaccharide PPV23 (Pneumovax) 07/28/2020 Seasonal [...] Dixie Lau, [facility] - 01/25/2023 11:23 AM EST Images from the original note were not included. Patient location: HOME. I was in a hospital or clinic location. After connecting through televideo,patient was verified with two unique identifiers. Patient (or authorized legal financial services representative) was then informed that this was a Telemedicine visit and being conducted confidentially over secure lines. Methods to assure confidentiality were taken. Patient acknowledged consent and understanding of pr ivacy and security of the Telemedicine visit. The patient agreed to participate. Medication Therapy Disease Management Clinic - Chronic Pain Management Progress Note 01/25/2023 Caren Johnson, identified by name and date of , is a 47 year old female being seen for chronic pain management/education. Patient presents to pain MTM clinic for return visit. Referring Physician: Carlitos Rain MD Medication Use Agreement: on file Patient's Pharmacy: [facility] CHIEF COMPLAINT: OA/ chronic back pain, failed surgeries Fibromyalgia HPI: Lyrica is helping No side effects noted Pain described as: [...] (problem unlikely) Daily MME: 15 PDMP Reviewed (01/25/2023): Urine Toxicology Screens: UDS 10/28/22: (+) oxycodone/ oxymorphone (+) THC Pill Count: n/a Functional Goal: to be able to sit and sleep Most recent answers to PEG-3 scale: What number best describes your pain on average in the past week?: 7 (01/25/2023 11:00 AM) What number best describes how, during the past week, pain has interfered with your enjoyment of life?: 6 (01/25/2023 11:00 AM) What number best describes how, during the past week, pain has interfered with your general activity?: 7 (01/25/2023 11:00 AM) PEG Pain Total Score: 6.67 (01/25/2023 11:00 AM) Past Pain Medications: SA Opioids: Oxycodone LA Opioids: NSAIDS: Muscle relaxants: Flexeril Antidepressants: Cymbalta: did not work Anticonvulsants: Gabapentin Lyrica Other: Current Pain Medications: Oxycodone 5 mg QID PRN Topamax 50 mg BID for migraines Lyrica 100 mg TID Wellbutrin Buspirone Creatinine Clearance: Serum creatinine: 0.8 mg/dL 11/11/22 1417 Estimated creatinine clearance: 80.2 mL/min Creatinine Results: Recent Labs Units 11/11/22 [...] in August until 3 weeks post surgery. Since that time she has had extreme lower back pain with radiation that is strong in a band along her lower back. Notes to radiate to the lower ribs but is not in the same t-spine location as previous to the surgery. Her T-Spine MRI appeared stable. Patient is following with non [facility] surgeon Dr Mc a newer issue in the lumbar area that has presented post stabilization of her t- spine. She has had no new injuries. Dr Mc appt yesterday, and notes no current surgery is indicated . Patient notes to be tolerating increased Lyrica titration to 100 mg TID, feels that over time it isreally helpful. Noting no current side effects Adherence: Reviewed current regimen, patient is adherent to regimen. Treatment options: Titrate Lyrica Treatment concerns: Patient notes to be taking care of a family member at this time. Education provided:Education and MOA provided on treatment options for [...] abuse or misuse have been exhibited. PLAN: Increase Lyrica. Patient would like a small titration for toleration. Lyrica 125 mg TID Medication changes: yes, see below Pain Medications: Oxycodone 5 mg QID PRN Topamax 50 mg BID for migraines Increase: Lyrica 125 mg TID Patient verbalized understanding of the plan. Contact clinic with any issues. FOLLOW UP: Return to clinic in 2-3 weeks 02/11/2023 Dixie Lau [facility] Clinical Pharmacist - Personal Driver Medication Therapy Management Clinic 01/25/2023, 11:24 AM documented in this encounter Plan of Treatment Upcoming Encounters Date Type Department Care Team (Late st Contact Info) Description 02/11/2023 3:00 PM EST Telemedicine Pharmacy, [place] [address] [phone] [facility] [place] [address] 06/14/2023 11:20 AM EDT [facility] [phone] Carlitos Rain MD [address] [place] [address] 01/09/2024 10:30 AM EST Appointment Radiology, [place] [place] [phone] Scheduled Procedures Name Priority Associated Diagnoses Date/Ti me COLONOSCOPY FLEXIBLE PROXIMA L DIAGNOSTIC Recall Screening for colon cancer Health Maintenance Due Date Last Done Comments DISCUSS TOBACCO CESSATION (REFER TO SMARTSET #2928) 1975 COVID-19 Vaccine (#1) 04/30/1975 Hepatitis B (3 of 3 - 19+ 3-dose series) 02/04/2023 12/10/2022, 06/02/2022 COLONOSCOPY-ANNUAL AGES 18-100 04/08/2023 04/07/2022, 04/07/2022 HbA1c 05/13/2023 11/11/2022, 05/09, 03/21/2022 Albumin/Creatinine Ratio 06/03/2023 06/02/2022 Diabetic Foot Exam 06/03/2023 06/02/2022 GFR 11/12/2023 11/11/2022, 09/08, 09/19/2022, Additional history exists Diabetic Eye Exam 11/23/2023 11/22/2022, 04/07/2022 Depression Screening 12/11/2023 12/10/2022 Mammogram 01/06/2024 01/05/2023, 06/09/2018 Lipid Panel 03/21/2027 03/21/2022, 02/0 10/2021, 02/19/2019, [...] this encounter Visit Diagnoses Diagnosis Cervicalgia- Primary Lumbosacral radiculopathy Thoracic or lumbosacral neuritis or radiculitis, unspecified Spinal stenosis of lumbar region with radiculopathy Spinal stenosis, lumbar region, without neurogenic claudication Chronic pain syndrome Sacroiliitis, not elsewhere classified (HCC) Sacroiliitis, not elsewhere classified documented in this encounter Care Teams Telephone Mechanic Relationship Specialty Start Date End Date Carlitos Rain MD [address] [phone] PCP - General Family Medicine 02/18/22 documented as of this encounter
--- OUTSIDE RECORDS SUMMARY | 2023-04-16 10:52 | External Medical Summary | Summary of Care ---
Author Name Unknown Organization [facility] Address [address] [place] [address] Phone [phone] Care Team Providers Care Horse Racer Name Role Phone Carlitos Rain MD Primary Care Provider Reason for Visit * Reason Onset Date Comments Medication Update 01/25/2023 Encounter Details Date Type Department Care Team (Late st Contact Info) Description 01/25/2023 Telephone Pharmacy, [place] [facility] [address] [facility] [place] [address] Medication Update Allergies Active Allergy Reactions Criticality Noted Date Comments Pollen 02/10/2022 documented as of this encounter (statuses as of 01/26/2023) Medications Medication Sig Dispensed Refills Start Date [...] Strip 2 04/29/2022 Active OneTouch Delica Plus [id number] :Type 2 diabetes mellitus with hemoglobin A1c [...] needed for Pain, Severe. 60 Tablet 0 01/26/2023 Active Pregabalin 100 MG Oral Capsule (Lyrica) Take 1 Capsule by mouth in the morning and 1 Capsule at noon and 1 Capsule before bedtime. Take with 25 mg dose to equal 125 mg three times daily. 90 Capsule 1 01/26/2023 Active Pregabalin 25 MG Oral Capsule (Lyrica) Take 1 Capsule by mouth in the morning and 1 Capsule at noon and 1 Capsule before bedtime. Take with 100 mg dose to equal 125 mg three times daily. 90 Capsule 1 01/26/2023 Active Pregabalin 100 MG Oral Capsule (Lyrica) Take 1 Capsule by mouth in the morning and 1 Capsule at noon and 1 Capsule before bedtime. Increase per MTM instructions. 90 Capsule 1 12/20/2022 01/26/20 Discontinu ed(Refill) oxyCODONE HCl 5 MG Oral Tablet (Oxy IR)Indications:Acute exacerbation of chronic low back pain Take 1 Tablet by mouth every 6 hours as needed for Pain, Severe. 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 10/02/2018 10/13/2018 BMI 45.0-49.9, adult 06/09/2018/15/ 023 Morbid obesity due to excess calories 06/09/2018 10/02/2018 Hematuria, gross 10/11/2014 06/09/2018 Urgency of urination 10/11/2014 019 Urinary frequency 10/11/2014 06/09/2018 documented as of this encounter (statuses as of 01/26/2023) Immunizations Name Administration Dates Next Due Hepatitis B, 20+ yrs 12/10/2022,06/02/2022 Pneumococcal Conjugate Vacci ne, 20-valent ([id number]) 04/14/2022 Pneumococcal Polysaccharide PPV23 (Pneumovax) 07/28/2020 Seasonal [...] encounter Miscellaneous Notes * Telephone Encounter - Carlitos Rain MD - 01/26/2023 7:13 AM EST Rxs signed. Thank you. * Telephone Encounter - Dixie Lau [facility] - 01/25/2023 11:41 AM EST Patient was reviewed by Telemedicine visit today Patient notes Lyrica has been significantly helping her pain levels. She states she would like to continue to increase dose, but asks for slow titration to lessen risk of fatigue while caring for herhusband Plan: Increase Lyrica. Patient would like a small titration for toleration. Lyrica 125 mg TID Patient also requests refill of Oxycodone Rx's are pended for your approval Thank you, Dixie Lau [facility] Clinical Pharmacist [facility] documented in this encounter Plan of Treatment Upcoming Encounters Date Type Department Care Team (Late st Contact Info) Description 02/11/2023 3:00 PM EST Telemedicine Pharmacy, [place] [address] [facility] [place] [address] 06/14/2023 11:20 AM EDT [facility] [address] [phone] Carlitos Rain MD [address] [address] 01/09/2024 10:30 [place] [address] Scheduled Procedures Name Priority Associated Diagnoses Date/Ti me COLONOSCOPY FLEXIBLE PROXIMA L DIAGNOSTIC Recall Screening for colon cancer Health Maintenance Due Date Last Done Comments DISCUSS TOBACCO CESSATION (REFER TO SMARTSET #3511) 1975 COVID-19 Vaccine (#1) 04/30/1975 Hepatitis B [...] exacerbation of chronic low back pain Lumbago documented in this encounter Care Teams Horse Racer Relationship Specialty Start Date End Date Carlitos Rain MD [address] [phone] PCP - General Family Medicine 02/18/22 documented as of this encounter
--- OUTSIDE RECORDS SUMMARY | 2023-04-16 10:52 | External Medical Summary | Summary of Care ---
Author Name Unknown Organization [facility] Address [address] [place] [address] Phone [phone] Care Team Providers Care Ict Help Desk Officer Name Role Phone Carlitos Rain MD Primary Care Provider Reason for Visit * Reason Onset Date Comments Advice 02/16/2023 Encounter Details Date Type Department Care Team (Late st Contact Info) Description 02/[facility]2023 [facility] [employer] [facility] [address] Carlitos Rain MD [address] [facility] [place] [address] Advice Allergies Active Allergy Reactions Criticality Noted Date Comments Pollen 02/10/2022 documented as of this encounter (statuses as of 02/16/2023) Medications Medication Sig Dispensed Refills Start Date [...] Strip 2 04/29/2022 Active OneTouch Delica Plus [id number]: Type 2 diabetes mellitus with hemoglobin A1c [...] 02/15/2023 Active predniSONE 20 MG Oral Tablet (Deltasone)Indication s:Wheezing Take 2 Tablets by mouth in the morning for 5 days. 10 Tablet 0 02/15/2023 4 Active Cyclobenzaprine HCl 10 MG Oral Tablet (Flexeril) Take 1 Tablet by mouth in the morning and 1 Tablet at noon and 1 Tablet before bedtime. 0 01/03/2023 Active documented as of this encounter (statuses as of 02/16/2023) Active Problems Problem Noted Date Diagnosed Date Generalized osteoarthritis 10/28/2022 Predominant disturbance of emotions 09/23/2022 Food insecurity 08/16/2022 Overview: Per [facility] Protocol Type 2 diabetes mellitus [...] as of this encounter (statuses as of 02/16/2023) Resolved Problems Problem Noted Date Diagnosed Date [...] as of this encounter (statuses as of 02/16/2023) Immunizations Name Administration Dates Next Due Hepatitis B, 20+ yrs 12/10/2022,06/02/2022 Pneumococcal Conjugate Vacci ne, 20-valent ([id number]) 04/14/2022 Pneumococcal Polysaccharide PPV23 (Pneumovax) 07/28/2020 Seasonal [...] encounter Miscellaneous Notes * Telephone Encounter - Katelin Rivera RN - 02/16/2023 11:46 AM EST Called and spoke with patient. Educated that RSV is a virus and an antibiotic will not help. The antibiotic was for her ear. Reviewed CDC recommendations for preventing transmission of RSV. As well as, home care for her. Patient denies further questions at this time and verbalizes understanding. Reason for Call: Advice Contact: Telephone Call Contact Type: Care Coordination Outcome: see above High Emergency Department Utilizer Face to face time spent with Patient (minutes): 0 Total Time including non face to face (minutes): 10 * Telephone Encounter - Abby Leung OSA - 02/16/2023 10:29 AM EST Patient was in the office yesterday and tested positive for RSV, she has amoxicillin and asked if that is strong enough to treat or if another medication is needed. Her has cancer and a low immune system and would like to know how to proceed. Please advise [phone] documented in this encounter Plan of Treatment Upcoming Encounters Date Type Department Care Team (Late st Contact Info) Description 02/22/2023 12:00 PM EST Nurse Only Ancillary 1st Floor, [place] [address] [address] [place] Nurse [place] [address] [place] [address] 03/11/2023 9:30 AM EST Telemedicine Pharmacy, [place] [address] [address] [facility] [address] [address] 06/14/2023 11:20 AM EDT Office Visit Family [facility], [place] [address] [phone] Carlitos Rain MD [address] [address] 01/09/2024 10:30 AM EST Appointment Radiology, [place] [address] [address] Scheduled Procedures Name Priority Associated Diagnoses Date/Ti me COLONOSCOPY FLEXIBLE PROXIMA L DIAGNOSTIC Recall Screening for colon cancer Health Maintenance Due Date Last Done Comments DISCUSS TOBACCO CESSATION (REFER TO SMARTSET #7991) 1975 COVID-19 Vaccine (#1) 04/30/1975 Hepatitis B (3 of 3 - 19+ 3-dose series) 02/04/2023 12/10/2022, 06/02/2022 COLONOSCOPY-ANNUAL AGES 18-100 04/08/2023 04/07/2022, 04/07/2022 HbA1c 05/13/2023 11/11/2022, 05/09, 03/21/2022 Albumin/Creatinine Ratio 06/03/2023 06/02/2022 Diabetic Foot Exam 06/03/2023 06/02/2022 GFR 11/12/2023 11/11/2022, 09/08, 09/19/2022, Additional history exists Diabetic Eye Exam 11/23/2023 11/22/2022, 04/07/2022 Depression Screening 12/11/2023 02/16/2023 Mammogram 01/06/2024 01/05/2023, 06/09/2018 Lipid Panel 03/21/2027 [...] documented as of this encounter Care Teams Ict Help Desk Officer Relationship Specialty Start Date End Date Carlitos Rain MD [address] [address] PCP - General Family Medicine 02/18/22 documented as of this encounter
--- OUTSIDE RECORDS SUMMARY | 2023-04-16 10:52 | External Medical Summary | Summary of Care ---
Author Name Unknown Organization [facility] Address [address] [place] [address] Phone [phone] Care Team Providers Care Languages And Literature Instructor Name Role Phone Carlitos Rain MD Primary Care Provider Reason for Visit * Reason Comments Dosage Adjustment In Person (Anticoag Cl inic) Pain Encounter Details Date Type Department Care Team ([facility] st Contact Info) Description 02/11/2023 3:00 PM [facility], [place] [address] [place] [address] [place], [facility] [place] [address] Sacroiliitis, not elsewhere classified (HCC)*; Primary osteoarthritis of both knees; Chronic midline low back pain with bilateral sciatica; Lumbosacral radiculopathy; Cervicalgia; Spinal stenosis of lumbar region with radiculopathy Allergies Active Allergy Reactions Criticality Noted Date Comments Pollen 02/10/2022 documented as of this encounter (statuses as of 02/11/2023) Medications Medication Sig Dispensed Refills Start Date [...] Strip 2 04/29/2022 Active OneTouch Delica Plus [id number] :Type 2 diabetes mellitus with hemoglobin A1c [...] for Pain, Severe. 60 Tablet 0 01/26/2023 02/11/19 24 Discontinu ed(Refill) documented as of this encounter (statuses as of 02/11/2023) Active Problems Problem Noted Date Diagnosed Date Generalized osteoarthritis 10/28/2022 Predominant disturbance of emotions 09/23/2022 Food insecurity 08/16/2022 Overview: Per [facility] Protocol Type 2 diabetes mellitus wit [...] as of this encounter (statuses as of 02/11/2023) Resolved Problems Problem Noted Date Diagnosed Date [...] as of this encounter (statuses as of 02/11/2023) Immunizations Name Administration Dates Next Due Hepatitis B, 20+ yrs 12/10/2022,06/02/2022 Pneumococcal Conjugate Vacci ne, 20-valent ([id number]) 04/14/2022 Pneumococcal Polysaccharide PPV23 (Pneumovax) 07/28/2020 Seasonal [...] this encounter Progress Notes * Dixie Lau, [facility] - 02/11/2023 2:33 PM EST Images from the original note were not included. Patient location: HOME. I was not in a hospital or clinic location. After connecting through televideo, patient was verified with two unique identifiers. Patient (or authorized legal pharmaceutical service representative) was then informed that this was a Telemedicine visit and being conducted confidentially over secure lines. Methods to assure confidentiality were taken. Patient acknowledged consent and understanding of privacy and security of the Telemedicine visit. The patient agreed to participate. Medication Therapy Disease Management Clinic - Chronic Pain Management Progress Note 02/11/2023 Caren Johnson, identified by name and date of , is a 47 year old female being seen for chronic pain management/education. Patient presents to pain MTM clinic for return visit. Referring Physician: Carlitos Rain MD Medication Use Agreement: on file [facility] CHIEF COMPLAINT: OA/ chronic back pain, failed surgeries Fibromyalgia Interval History: Lyrica titration is helpful Notes to be doing very well Pain described as: radiation around the lower [...] (problem unlikely) Daily MME: 15 PDMP Reviewed (02/11/2023): Urine Toxicology Screens: UDS 10/28/22: (+) oxycodone/ oxymorphone (+) THC Pill Count: n/a Functional Goal: to be able to sit and sleep Most recent answers to PEG-3 scale: What number best describes your pain on average in the past week?: 6 (02/11/2023 2:00 PM) What number best describes how, during the past week, pain has interfered with your enjoyment of life?: 5 (02/11/2023 2:00 PM) What number best describes how, during the past week, pain has interfered with your general activity?: 5 (02/11/2023 2:00 PM) PEG Pain Total Score: 5.33 (02/11/2023 2:00 PM) Past Pain Medications: SA Opioids: Oxycodone LA Opioids: NSAIDS: Muscle relaxants: Flexeril Antidepressants: Cymbalta: did not work Anticonvulsants: Gabapentin Lyrica Other: Current Pain Medications: Oxycodone 5 mg QID PRN Topamax 50 mg BID for migraines Lyrica 125 mg TID Wellbutrin Buspirone Creatinine Clearance: Serum [...] spine. She has had no new injuries. Most recent appt with Dr Mc notes no current surgery is indicated . Each titration of Lyrica has been helpful. Able to assist in care of her during his cancer treatments is her current goal Adherence: Reviewed current regimen, patient is adherent [...] like a small titration for toleration. Lyrica 150 mg TID Repeat UDS at next visit Medication changes: yes, see below Pain Medications: Oxycodone 5 mg QID PRN Topamax 50 mg BID for migraines INCREASE: Lyrica 150 mg TID Patient verbalized understanding of the plan. Contact clinic with any issues. FOLLOW UP: Return to clinic in 4 weeks Visit date not found Dixie Lau [facility] Clinical Pharmacist - Computer Help Desk Specialist Medication Therapy Management Clinic 02/11/2023, 2:33 PM documented in this encounter Plan of Treatment Upcoming Encounters Date Type Department Care Team (Late st Contact Info) Description 03/11/2023 9:30 AM EST [place] [address] [facility] [place] [address] 06/14/2023 11:20 AM EDT Office Visit Family [facility], [place] [phone] Carlitos Rain MD [address] [place] [address] 01/09/2024 10:30 AM EST Appointment Radiology, [place] [address] Scheduled Procedures Name Priority Associated Diagnoses Date/Ti me COLONOSCOPY FLEXIBLE PROXIMA L DIAGNOSTIC Recall Screening for colon cancer Health Maintenance Due Date Last Done Comments DISCUSS TOBACCO CESSATION (REFER TO SMARTSET #2011) 1975 COVID-19 Vaccine (#1) 04/30/1975 Hepatitis B [...] as of this encounter Visit Diagnoses Diagnosis Sacroiliitis, not elsewhere classified (HCC)- Primary Sacroiliitis, not elsewhere classified Primary osteoarthritis of both knees Primary localized osteoarthrosis, lower leg Chronic midline low back pain with bilateral sciatica Lumbosacral radiculopathy Thoracic or lumbosacral neuritis or radiculitis, unspecified Cervicalgia Spinal stenosis of lumbar region with radiculopathy Spinal stenosis, lumbar region, without neurogenic claudication documented in this encounter Care Teams Languages And Literature Instructor Relationship Specialty Start Date End Date Carlitos Rain MD [address] [phone] PCP - General Family Medicine 02/18/22 documented as of this encounter
--- OUTSIDE RECORDS SUMMARY | 2023-04-16 10:52 | External Medical Summary | Summary of Care ---
Author Name Unknown Organization [facility] Address [address] [place] [address] Phone [phone] Care Team Providers Care Filtration Supervisor Name Role Phone Carlitos Rain MD Primary Care Provider Reason for Referral * Evaluate & Treat - Unlimited Visits (Within 3 days (urgent)) - Authorized Specialty Diagnoses / Procedures Referred By Rafiq pendleton Referred To Contact Otolaryngology Diagnoses Bilateral hearing loss, unspecified hearing loss type Dysfunction of both eustachian tubes Caitlin López MD [address] [address] Referral ID Status Reason Start Date Expiration Date Visits Requested Visits Authorized [id number] Authorized Specialty Services Required 02/18/2023 999 999 Question Answer Referral Priority Within 3 days (urgent) Where should this appointment be scheduled? [facility] Reason for Referral Ear Conditions Specific Condition: Hearing Loss Is this sudden hearing loss or post chemotherapy hearing loss? Yes For sudden hearing loss or post chemotherapy hearing loss, please set referral priority to 3 days (URGENT) Acknowledge Reason for Visit * Reason Comments Hearing Problem Encounter Details Date Type Department Care Team ([facility] st Contact Info) Description 02/18/2023 12:00 PM EST Office Visit [facility] [address] [phone] Caitlni López MD [address] [address] Bilateral hearing loss, unspecified hearing loss type*; Dysfunction of both eustachian tubes Allergies Active Allergy Reactions Criticality Noted Date [...] Strip 2 04/29/2022 Active OneTouch Delica Plus [id number] :Type 2 diabetes mellitus with hemoglobin A1c [...] goal of less than 7.0% ([facility]) Inject 1.5 mg under the skin [...] 24 Tablet 0 02/18/2023 02/26/19 24 Active predniSONE 20 MG Oral Tablet (Deltasone)Indicatio ns:Wheezing Take 2 Tablets by mouth in the morning for 5 days. 10 Tablet 0 02/15/2023 02/18/19 24 Discontinu ed(Medicat ion/Dose Changed) documented as of this encounter (statuses as of 02/18/2023) Active Problems Problem Noted Date Diagnosed Date Anxiety and depression 02/16/2023 Generalized osteoarthritis 10/28/2022 Predominant disturbance of emotions 09/23/2022 Food insecurity 08/16/2022 Overview: Per [facility] Protocol Type 2 diabetes mellitus wit [...] yrs 12/10/2022,06/02/2022 Pneumococcal Conjugate Vacci ne, 20-valent ([id number]) 04/14/2022 Pneumococcal Polysaccharide PPV23 (Pneumovax) 07/28/2020 Seasonal [...] Sign Reading Time Taken Comments Blood Pressure 110/68 02/18/2023 11:45 AM EST Pulse 72 02/18/2023 11:45 AM EST Temperature 36.4 C (97.5 F) 02/18/2023 1 1:45 AM EST Respiratory Rate 16 02/18/2023 11:4 5 AM EST Oxygen Saturation 96% 02/18/2023 11: 45 AM EST Inhaled Oxygen Concentration - - Weight 77.9 kg (171 lb 12.8 oz) 024 11:45 AM EST Height - - Body Mass Index 32.46 09/29/2022 10:18 AM EDT documented in this encounter Progress Notes * Caitlin López MD - 02/18/2023 12:09 PM EST Images from the original note were not included. History of Present Illness Caren Johnson is a 47 year old female that presents for Hearing Problem Patient reports hearing loss (left ear worse than right) RSV +, doing better; left otalgia resolved, on Amoxicillin, denies Q-tip use since last visit. Physical Exam Vitals: 02/18/23 1145 Temp: 36.4 C (97.5 F) Pulse: 72 Resp: 16 SpO2: 96% BP: 110/68 BP Readings from Last 3 Encounters: 02/18/23 110/68 02/15/23 118/78 12/10/22 110/76 Wt Readings from Last 3 Encounters: 02/18/23 77.9 kg (171 lb 12.8 oz) 02/15/23 77.8 kg (171 lb 8 oz) 12/10/22 76.1 kg (167 lb 12.8 oz) BMI Readings from Last 3 Encounters: 02/18/23 32.46 kg/m 02/15/23 32.40 kg/m 12/10/22 31.71 kg/m Physical Exam Constitutional: Appearance: Normal appearance. HENT: Head: Normocephalic and atraumatic. Right Ear: External ear normal. Decreased hearing noted. Left Ear: External ear normal. Decreased hearing noted. Tympanic membrane is retracted. Ears: Comments: Dull TM BL, left ear canal (hx bleeding after Q-tip use) Mouth/Throat: Pharynx: Posterior oropharyngeal erythema present. Pulmonary: Effort: Pulmonary effort is normal. Neurological: Mental Status: She is alert and oriented to person, place, and time. Psychiatric: Behavior: Behavior normal. I have reviewed the following results: None Assessment and Plan 1. Bilateral hearing loss, unspecified hearing loss type - OTOLARYNGOLOGY REFERRAL OP - predniSONE 20 MG Oral Tablet (Deltasone); Take 3 Tablets by mouth in the morning for 8 days. Dispense: 24 Tablet; Refill: 0 - HEARING SCREEN 2. Dysfunction of both eustachian tubes - OTOLARYNGOLOGY REFERRAL OP - HEARING SCREEN Wrap-Up Check-out note: ENT referral Time: I spent a total of 10-19 minutes (exact time 12 mins) on the date of service in preparation, delivery, and documentation of the care provided to Caren Johnson excluding any time spent in the performance of separately billed services. documented in this encounter Plan of Treatment Upcoming Encounters Date Type Department Care Team (Late st Contact Info) Description 02/22/2023 12:00 PM EST Nurse Only Ancillary 1st Floor, [place] [address] [address] [address] [place], [facility] [place] [address] 03/11/2023 9:30 AM EST Telemedicine Pharmacy, [place] [address] [address] [address] [place] [facility] [place] [address] 06/14/2023 11:20 AM EDT Office Visit [facility] [place] [address] [phone] Carlitos Rain MD [address] [address] 01/09/2024 10:30 AM EST Appointment Radiology, [place] [address] Scheduled Procedures Name Priority Associated Diagnoses Date/Ti me COLONOSCOPY FLEXIBLE PROXIMA L DIAGNOSTIC Recall Screening for colon cancer Scheduled Referrals Name Type Priority Associated Diagnoses Orde r Schedule OTOLARYNGOLOGY REFERRAL OP Referral Within 3 days (urgent) Bilateral hearing loss, unspecified hearing loss type Dysfunction of both eustachian tubes Ordered: 02/18/2023 Health Maintenance Due Date Last Done Comments DISCUSS TOBACCO CESSATION (REFER TO SMARTSET #6082) 1975 COVID-19 Vaccine (#1) 04/30/1975 Hepatitis B [...] Procedure Name Priority Date/Time Associated Diagnosis Comments HEARING SCREEN Routine 02/18/2023 Bilateral hearing loss, unspecified hearing loss type Dysfunction of both eustachian tubes documented in this encounter Results * HEARING SCREEN (02/18/2023) 02/18/2023 Impressions Rehana Mukherjee, ROEvelyn - 02/18/2023 HEARING TEST RESULTS LEFT EAR 500HZ : unable to hear at 40 decibels 1000HZ : unable to hear at 40 decibels 2000HZ : unable to hear at 40 decibels 4000HZ : unable to hear at 40 decibels RIGHT EAR 5OOHZ : 40, mild impairment 1000HZ : unable to hear at 40 decibels 2000HZ : unable to hear at 40 decibels 4000HZ : unable to hear at 40 decibels Test Performed and Resulted by JATINDER Hi Caitlin López MD MEDICINE documented in this encounter Visit Diagnoses Diagnosis Bilateral hearing loss, unspecified hearing loss type- Primary Dysfunction of both eustachian tubes Dysfunction of Eustachian tube documented in this encounter Additional Health Concerns Infection Onset Date Last Indicated Resolved Time RSV 02/15/2023 02/15/2023 documented as of this encounter Care Teams Filtration Supervisor Relationship Specialty Start Date End Date Carlitos Rain MD [address] [phone] PCP - General Family Medicine 02/18/22 documented as of this encounter
--- OUTSIDE RECORDS SUMMARY | 2023-04-16 10:52 | External Medical Summary | Summary of Care ---
Author Name Unknown Organization [facility] Address [address] [place] [address] Phone [phone] Care Team Providers Care Music Leader Name Role Phone Adelina Rain MD Primary Care Provider Reason for Visit * Reason Onset Date Comments Medication Refill 02/11/2023 Encounter Details Date Type Department Care Team (Late st Contact Info) Description 02/11/2023 Refill Pharmacy, [place] [facility] [place] [address] [facility] [place] [address] Other intervertebral disc displacement, lumbosacral region*; Acute exacerbation of chronic low back pain; Lumbosacral radiculopathy Allergies Active Allergy Reactions Criticality [...] Strip 2 04/29/2022 Active OneTouch Delica Plus [id number] :Type 2 diabetes mellitus with hemoglobin A1c [...] before bedtime. 90 Capsule 1 02/11/2023 Active oxyCODONE HCl 5 MG Oral Tablet (Oxy IR)Indications:Acute exacerbation of chronic low back pain Take 1 Tablet by mouth every 6 hours as needed for Pain, Severe. 60 Tablet 0 01/26/2023 02/11/19 24 Discontinu ed(Refill) Pregabalin 100 MG Oral Capsule (Lyrica) Take 1 Capsule by mouth in the morning and 1 Capsule at noon and 1 Capsule before bedtime. Take with 25 mg dose to equal 125 mg three times daily. 90 Capsule 1 01/26/2023 02/11/19 24 Discontinu ed(Medicat ion/Dose Changed) Pregabalin 25 MG Oral Capsule (Lyrica) Take 1 Capsule by mouth in the morning and 1 Capsule at noon and 1 Capsule before bedtime. Take with 100 mg dose to equal 125 mg three times daily. 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 Thank you. * Telephone Encounter - Adelina Rain MD - 02/11/2023 3:37 PM EST Signed Prescriptions: Disp Refills oxyCODONE HCl 5 MG Oral Tablet (Oxy IR) 60 Tab*0 Sig: Take 1 Tablet by mouth every 6 hours as needed for Pain, Severe. Authorizing Provider: ADELINA RAIN Pregabalin 150 MG Oral Capsule (Lyrica) 90 Cap*1 Sig: Take 1 Capsule by mouth in the morning and 1 Capsule at noon and 1 Capsule before bedtime. Authori mary Provider: ADELINA RAIN * Telephone Encounter - Dixie Lau RPh - 02/11/2023 2:59 PM EST Patient was reviewed by Telemedicine visit today Refill requested by patient for Oxycodone. Refill remains appropriate and forwarded for your review Patient would also benefit from further titration of Lyrica, which has been very well tolerated andhelpful. Recommend increase to Lyrica 150 mg TID Rx's pended Thank you, Dixie Lau [facility] Clinical Pharmacist [facility] documented in this encounter Plan of Treatment Upcoming Encounters Date Type Department Care Team (Late st Contact Info) Description 03/11/2023 9:30 AM EST Telemedicine Pharmacy, [place] [address] [address] [facility] [address] [address] 06/14/2023 11:20 AM EDT Office Visit Family Practice, [place] [address] [phone] Adelina Rain MD [address] [address] 01/09/2024 10:30 AM EST Appointment Radiology, [place] [address] Scheduled Procedures Name Priority Associated Diagnoses Date/Ti me COLONOSCOPY FLEXIBLE PROXIMA L DIAGNOSTIC Recall Screening for colon cancer Health Maintenance Due Date Last Done Comments DISCUSS TOBACCO CESSATION (REFER TO SMARTSET #0756) 1975 COVID-19 Vaccine (#1) 04/30/1975 Hepatitis B [...] as of this encounter Visit Diagnoses Diagnosis Other intervertebral disc displacement, lumbosacral region- Primary Acute exacerbation of chronic low back pain Lumbago Lumbosacral radiculopathy Thoracic or lumbosacral neuritis or radiculitis, unspecified documented in this encounter Care Teams Music Leader Relationship Specialty Start Date End Date Adelina Rain MD [address] [address] PCP - General Family Medicine 02/18/22 documented as of this encounter
--- OUTSIDE RECORDS SUMMARY | 2023-04-16 10:52 | External Medical Summary | Summary of Care ---
Author Name Unknown Organization [facility] Address [address] [place] [address] Phone [phone] Care Team Providers Care Claim Benefit Specialist Name Role Phone Carlitos Rain MD Primary Care Provider Encounter Details Date Type Department Care Team (Late st Contact Info) Description 12/27/2022 3:00 PM EST Scheduled Telephone Care Coordination and Integration [address] [place], [place] [phone] Elva Pinon [facility] Industrial Psychologist [address] [place] [address] Allergies Active Allergy Reactions Criticality Noted Date Comments Pollen 02/10/2022 documented as of this encounter (statuses as of 01/19/2023) Medications Medication Sig Dispensed Refills Start Date End Date Status cetirizine (ZYRTEC) 10 MG TabletIndications:Se asonal allergies Take 1 Tab by mouth daily. 90 Tab 3 06/09/2018 Active Montelukast Sodium 10 MG Oral Tablet Take by mouth daily. 0 01/07/2021 Active Alcohol Prep Pads 70 % PadIndications:Type 2 diabetes mellitus with hemoglobin A1c goal of less than 7.0% ([facility]) Use for injections. Injects trulicity once weekly 100 Each 1 03/26/2022 Active OneTouch Verio In Vitro Strip (Glucose Blood)Indications:Ty pe 2 diabetes mellitus with hemoglobin A1c goal of less than 8.0% ([facility]) Use up to 4 times a day E11.9 400 Strip 2 04/29/2022 Active OneTouch Delica Plus [id number] :Type 2 diabetes mellitus with hemoglobin A1c [...] and 1 Capsule before bedtime. Increase per MT instructions. 90 Capsule 1 12/20/2022 Active buPROPion HCl ER (XL) 150 MG Oral Tablet Extended Release 24 Hour (Wellbutrin XL) Take 1 Tablet by mouth in the morning. 30 Tablet 5 06/02/2022 12/30/19 23 Discontinu ed(Refill) Topiramate 50 MG Oral Tablet (topAMAX) Take 1 Tablet by mouth in the morning and 1 Tablet before bedtime. 60 Tablet 5 09/20/2022 01/12/20 23 Discontinu ed(Refill) oxyCODONE HCl 5 MG Oral Tablet (Oxy IR)Indications:Acute exacerbation of chronic low back pain Take 1 Tablet by mouth every 6 hours as needed for Pain, Severe. 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 Food insecurity 08/16/2022 Overview: Per [facility] Protocol Type 2 diabetes mellitus wit [...] as of this encounter (statuses as of 01/19/2023) Resolved Problems Problem Noted Date Diagnosed Date [...] as of this encounter (statuses as of 01/19/2023) Immunizations Name Administration Dates Next Due Hepatitis B, 20+ yrs 12/10/2022,06/02/2022 Pneumococcal Conjugate Vacci ne, 20-valent ([id number]) 04/14/2022 Pneumococcal Polysaccharide PPV23 (Pneumovax) 07/28/2020 Seasonal [...] as of this encounter Progress Notes * Elva Pinon [facility] Industrial Psychologist - 12/27/2022 2:08 PM EST Phone call to Caren, per the request of Shruthi Godinez RN CM Patient's , Guilherme, 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 Main need is fuel cards. Caren has utilized [facility] [email or web address] twice in past 6 monthsand is currently no eligible to use again for 3 months Discussed Vish Roque---would need official diagnosis to apply. Scheduled for pathology results appt 01/03. Currently has plenty of food. Utilized [employer] last week, has $65 in food stamps remaining and fridge/pantry is stocked Utilities are all current; has [employer] for heat/electric assistance Has some gas money to get to upcoming appts, but knows gas is going to be main barrier in the upcoming months. Plan is to wait for official diagnosis and apply for Vish Concepcion. Pt also agreeable to speak to SW at Oncology office for additional supports. Denies additional needs/concerns. Has direct line for [facility] for additional needs. documented in this encounter Plan of Treatment Upcoming Encounters Date Type Department Care Team (Late st Contact Info) Description 01/25/2023 11:30 AM EST Telemedicine Pharmacy, [place] [address] [address] [facility] [address] [address] 06/14/2023 11:20 AM EDT Office Visit Family Practice, [place] [address] [phone] Carlitos Rain MD [address] [address] 01/09/2024 10:30 AM EST Appointment [place], [place] [address] Scheduled Procedures Name Priority Associated Diagnoses Date/Ti me COLONOSCOPY FLEXIBLE PROXIMA L DIAGNOSTIC Recall Screening for colon cancer Health Maintenance Due Date Last Done Comments DISCUSS TOBACCO CESSATION (REFER TO SMARTSET #4546) 1975 COVID-19 Vaccine (#1) 04/30/1975 Hepatitis B [...] filedocumented as of this encounter Care Teams Claim Benefit Specialist Relationship Specialty Start Date End Date Carlitos Rain MD [address] [address] PCP - General Family Medicine 02/18/22 documented as of this encounter
--- OUTSIDE RECORDS SUMMARY | 2023-04-16 10:52 | External Medical Summary | Summary of Care ---
Author Name Unknown Organization [facility] Address [address] [place] [address] Phone [phone] Care Team Providers Care Advanced Seal Delivery System Name Role Phone Carlitos Rain MD Primary Care Provider Reason for Visit * Reason Comments Dosage Adjustment In Person (Anticoag Cl inic) Pain Encounter Details Date Type Department Care Team ([facility] st Contact Info) Description 02/11/2023 3:00 PM [facility], [place] [address] [facility] [place] [address] [place], [facility] [place] [address] Sacroiliitis, not elsewhere classified (HCC)*; Primary osteoarthritis [...] Strip 2 04/29/2022 Active OneTouch Delica Plus [id number]: Type 2 diabetes mellitus with hemoglobin A1c [...] less than 7.0% ([facility]) Inject 1.5 mg under the [...] Pain, Severe. 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 Patient location: HOME. I was not in a hospital or clinic location. After connecting through televideo, patient was verified with two unique identifiers. Patient (or authorized legal provider service representative) was then informed that this [...] Medication Use Agreement: on file Patient's Pharmacy: [facility] CHIEF COMPLAINT: OA/ chronic back pain, failed [...] titration for toleration. Lyrica 150 mg TID Medication changes: yes, see below Pain Medications: Oxycodone 5 mg QID PRN Topamax 50 mg BID for migraines INCREASE: Lyrica 150 mg TID Patient verbalized understanding of the plan. Contact clinic with any issues. FOLLOW UP: Return to clinic in 4 weeks Visit date not found Dixie Lau [facility] Clinical Pharmacist - Desk Clerk Medication [facility] 02/11/2023, 2:33 PM documented in this encounter Plan of Treatment Upcoming Encounters Date Type Department Care Team (Late st Contact Info) Description 03/11/2023 9:30 AM EST [place] [address] [facility] [place] [place] [address] 06/14/2023 11:20 AM EDT Office Visit [facility] [phone] Carlitos Rain MD [address] [place] [address] 01/09/2024 10:30 AM EST Appointment [place], [place] [address] Scheduled Procedures Name Priority Associated Diagnoses Date/Ti me COLONOSCOPY FLEXIBLE PROXIMA L DIAGNOSTIC Recall Screening for colon cancer Health Maintenance Due Date Last Done Comments DISCUSS TOBACCO CESSATION (REFER TO SMARTSET #3926) 1975 COVID-19 Vaccine (#1) 04/30/1975 Hepatitis B [...] claudication documented in this encounter Care Teams Advanced Seal Delivery System Relationship Specialty Start Date End Date Carlitos Rain MD [address] [place] [address] PCP - General Family Medicine 02/18/22 documented as of this encounter
--- OUTSIDE RECORDS SUMMARY | 2023-04-16 10:52 | External Medical Summary | Summary of Care ---
Author Name Unknown Organization [facility] Address [address] [place] [address] Phone [phone] Care Team Providers Care Fire Production Operator Name Role Phone Carlitos Rain MD Primary Care Provider Reason for Visit * Reason Comments Acute Reports left ear roselia n, diminished hearing, bleeding. Pressure in head, runny nose, cough. Encounter Details Date Type Department Care Team (Late st Contact Info) Description 02/15/2023 4:20 PM EST Office Visit [facility] [address] [place] [address] Caitlin López MD [address] [place], [place] [phone] Upper respiratory tract infection, unspecified type*; Left ear pain; Impacted cerumen of left ear; Tobacco use disorder; Wheezing; Type 2 diabetes mellitus with hemoglobin A1c goal of less than 7.0% ([facility]) Allergies Active Allergy Reactions Criticality Noted Date [...] Strip 2 04/29/2022 Active OneTouch Delica Plus [id number] :Type 2 diabetes mellitus with hemoglobin A1c [...] goal of less than 7.0% ([facility]) Inject 1.5 mg under the skin once [...] yrs 12/10/2022,06/02/2022 Pneumococcal Conjugate Vacci ne, 20-valent ([id number]) 04/14/2022 Pneumococcal Polysaccharide PPV23 (Pneumovax) 07/28/2020 Seasonal [...] goal of less than 7.0% ([facility]) - HbA1c 5.0 Wrap-Up As needed Time: [...] PM EST Nurse Only Ancillary 1st Floor, [place] [address] Nurse Camryn [facility] [address] [address] 03/11/2023 9:30 AM EST Telemedicine Pharmacy, [place] [address] [facility] [address] [address] 06/14/2023 11:20 AM EDT Office Visit Family Practice, [place] [address] [phone] Carlitos Rain MD [address] [address] 01/09/2024 10:30 AM EST Appointment Radiology, [place] [address] [address] Scheduled Procedures Name Priority Associated Diagnoses Date/Ti [...] Negative Negative 024 11:06 PM EST [facility] Coronavirus 229E by PCR Negative Negative 02/15/2023 11:06 PM EST [facility] Coronavirus HKU1 by PCR Negative Negative 02/15/2023 11:06 PM EST [facility] Coronavirus NL63 by PCR Negative Negative 02/15/2023 11:06 PM EST [facility] Coronavirus OC43 by PCR Negative Negative 02/15/2023 11:06 PM EST [facility] Coronavirus SARS-CoV-2 by PCR Negative Negative 02/15/2023 11:06 PM EST [facility] Human Metapneumovirus by PCR Negative Negative 02/15/2023 11:06 PM EST [facility] Rhinovirus/Enterov irus by PCR Negative Negative 02/15/2023 11:06 PM EST [facility] Influenza A Virus by PCR Negative Negative 02/15/2023 11:06 PM EST [facility] Influenza B Virus by PCR Negative Negative 02/15/2023 11:06 PM EST [facility] Parainfluenza Virus 1 by PCR Negative Negative 02/15/2023 11:06 PM EST [facility] Parainfluenza Virus 2 by PCR Negative Negative 02/15/2023 11:06 PM EST [facility] Parainfluenza Virus 3 by PCR Negative Negative 02/15/2023 11:06 PM EST [facility] Parainfluenza Virus 4 by PCR Negative Negative 02/15/2023 11:06 PM EST [facility] Respiratory Syncytial Virus by PCR Positive(A) Negative 02/15/2023 11:06 PM EST [facility] Comment:Respiratory Syncytia l virus detected by PCR (amplified probe). Test results reported to [facility]. Bordetella pertussis by PCR Negative Negative 02/15/2023 11:06 PM EST [facility] Chlamydia pneumoniae by PCR Negative Negative 02/15/2023 11:06 PM EST [facility] Mycoplasma pneumoniae by PCR Negative Negative 02/15/2023 11:06 PM EST [facility] Bordetella parapertussis by PCR Negative Negative 02/15/2023 11:06 PM EST [facility] Comment: The primers that detect Rhinovirus may cross react with some Enterorviruses. The validation of bronchial specimens, tracheal aspirates, and throats for this assay was developed and performance characteristics determined by [facility]. The validation of alternate specimen types has not been cleared or approved by the U.S. Food and Drug Administration (FDA). It has been determined that such clearance or approval is not necessary. Upper Respiratory Nasopharyngeal swab / Unknown Non-blood Collection / Unknown 02/15/2023 4:06 PM EST 02/15/2023 4:38 PM EST Caitlin López MD LAB MICRO - GENERAL ORDERABLES [facility] [address] [place] [address] documented in this encounter Visit Diagnoses Diagnosis Upper respiratory tract infection, unspecified type- Primary Left ear pain Otalgia, unspecified Impacted cerumen of left ear Impacted cerumen Tobacco use disorder Wheezing Type 2 diabetes mellitus with hemoglobin A1c goal of less than 7.0% ([facility]) documented in this encounter Additional Health Concerns Infection Onset Date Last Indicated Resolved Time Respiratory Rule-Out 02/15/2023 02/15/2023 024 11:06 PM EST documented as of this encounter Care Teams Fire Production Operator Relationship Specialty Start Date End Date Carlitos Rain MD [address] [phone] PCP - General Family Medicine 02/18/22 documented as of this encounter
--- OUTSIDE RECORDS SUMMARY | 2023-04-16 10:52 | External Medical Summary | Summary of Care ---
Author Name Unknown Organization [facility] Address [address] [place] [address] Phone [phone] Care Team Providers Care Manager Program Name Role Phone Carlitos Rain MD Primary Care Provider Encounter Details Date Type Department Care Team (Late st Contact Info) Description 12/27/2022 3:00 PM EST Scheduled Telephone Care Coordination and Integration [address] [place], [place] [phone] Elva Pinon Community [facility] Lens Inspector [address] [place] [address] Allergies Active Allergy Reactions Criticality Noted Date [...] hemoglobin A1c goal of less than 7.0% ([facility]) Use for injections. Injects trulicity once weekly 100 Each 1 03/26/2022 Active OneTouch Verio In Vitro Strip (Glucose Blood)Indications:Ty pe 2 diabetes mellitus with hemoglobin A1c goal of less than 8.0% ([facility]) Use up to 4 times a day E11.9 400 Strip 2 04/29/2022 Active OneTouch Delica Plus [id number] :Type 2 diabetes mellitus with hemoglobin A1c [...] emotions 09/23/2022 Food insecurity 08/16/2022 Overview: Per [facility] Protocol Type 2 diabetes mellitus wit [...] yrs 12/10/2022,06/02/2022 Pneumococcal Conjugate Vacci ne, 20-valent ([id number]) 04/14/2022 Pneumococcal Polysaccharide PPV23 (Pneumovax) 07/28/2020 Seasonal [...] Progress Notes * Elva Pinon [facility] Lens Inspector - 12/27/2022 2:08 PM EST Phone call to Caren, per the request of Shruthi Godinez RN CM Patient's , Guilherme, 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 Main need is fuel cards. Caren has utilized [facility] [employer] twice in past 6 monthsand is currently no eligible to use again for 3 months Discussed Vish Roque---would need official diagnosis to apply. Scheduled for pathology results appt 01/03. Currently has plenty of food. Utilized [employer] last week, has $65 in food stamps [...] Denies additional needs/concerns. Has direct line for [facility] for additional needs. documented in this encounter Plan of Treatment Upcoming Encounters Date Type Department Care Team (Late st Contact Info) Description 01/25/2023 11:30 AM EST Telemedicine Pharmacy, [place] [address] [address] [facility] [address] [address] 06/14/2023 11:20 AM EDT Office Visit Family Practice, [place] [address] [phone] Carlitos Rain MD [address] [address] 01/09/2024 10:30 AM EST Appointment [place], [place] [address] Scheduled Procedures Name Priority Associated Diagnoses Date/Ti me COLONOSCOPY FLEXIBLE PROXIMA L DIAGNOSTIC Recall Screening for colon cancer Health Maintenance Due Date Last Done Comments DISCUSS TOBACCO CESSATION (REFER TO SMARTSET #7927) 1975 COVID-19 Vaccine (#1) 04/30/1975 Hepatitis B [...] filedocumented as of this encounter Care Teams Manager Program Relationship Specialty Start Date End Date Carlitos Rain MD [address] [address] PCP - General Family Medicine 02/18/22 documented as of this encounter
--- OUTSIDE RECORDS SUMMARY | 2023-04-16 10:53 | External Medical Summary | Summary of Care ---
Author Name Unknown Organization [facility] Address [address] [place] [address] Phone [phone] Care Team Providers Care Continuity Writer Name Role Phone Adelina Rain MD Primary Care Provider Reason for Visit * Reason Onset Date Comments Medication Refill 12/20/2022 Encounter Details Date Type Department Care Team (Late st Contact Info) Description 12/20/2022 Refill Pharmacy, [place] [address] [place] [address] [facility] [address] [place] [address] Acute exacerbation of chronic low back pain Allergies Active Allergy Reactions Criticality Noted Date Comments Pollen 02/10/2022 documented as of this encounter (statuses as of 12/21/2022) Medications Medication Sig Dispensed Refills Start Date End Date Status cetirizine (ZYRTEC) 10 MG TabletIndications:Se asonal allergies Take 1 Tab by mouth daily. 90 Tab 3 06/09/2018 Active Montelukast Sodium 10 MG Oral Tablet Take by mouth daily. 0 01/07/2021 Active Alcohol Prep Pads 70 % PadIndications:Type 2 diabetes mellitus with hemoglobin A1c goal of less than 7.0% ([facility]) Use for injections. Injects trulicity once weekly 100 Each 1 03/26/2022 Active OneTouch Verio In Vitro Strip (Glucose Blood)Indications:Ty pe 2 diabetes mellitus with hemoglobin A1c goal of less than 8.0% (HCC) Use up to 4 times a day E11.9 400 Strip 2 04/29/2022 Active OneTouch Delica Plus [id number] :Type 2 diabetes mellitus with hemoglobin A1c [...] Additional Information Patient not taking.Reported on 12/10/2022 buPROPion HCl ER (XL) 150 MG Oral Tablet Extended Release 24 Hour (Wellbutrin XL) Take 1 Tablet by mouth in the morning. 30 Tablet 5 06/02/2022 Active metFORMIN HCl ER 500 MG Oral Tablet Extended Release 24 Hour (Glucophage XR)Indications:Type 2 diabetes mellitus with hemoglobin A1c goal of less than 8.0% (HCC) Take 1 Tablet by mouth in the morning. 90 Tablet 3 06/15/2022 Active Topiramate 50 MG Oral Tablet (topAMAX) Take 1 Tablet by mouth in the morning and 1 Tablet before bedtime. 60 Tablet 5 09/20/2022 Active Atorvastatin Calcium 10 MG Oral Tablet [...] Active Dulaglutide 1.5 MG/0.5ML Subcutaneous Solution Pen-injector (TrulicPlyfe)Indicatio ns:Type 2 diabetes mellitus with hemoglobin A1c goal of less than 7.0% ([facility]) Inject 1.5 mg under the skin once [...] at bedtime. 30 Tablet 5 12/10/2022 Active oxyCODONE HCl 5 MG Oral Tablet (Oxy IR)Indications:Acute exacerbation of chronic low back pain Take 1 Tablet by mouth every 6 hours as needed for Pain, Severe. 60 Tablet 0 12/20/2022 Active Pregabalin 100 MG Oral Capsule (Lyrica) Take 1 Capsule by mouth in the morning and 1 Capsule at noon and 1 Capsule before bedtime. Increase per MTM instructions. 90 Capsule 1 12/20/2022 Active Pregabalin 75 MG Oral Capsule (Lyrica) Take 1 Capsule by mouth in the morning and 1 Capsule at noon and 1 Capsule before bedtime. 90 Capsule 1 11/25/2022 12/21/19 Discontinu ed(Medicat ion/Dose Changed) oxyCODONE HCl 5 MG Oral Tablet (Oxy IR)Indications:Acute exacerbation of chronic low back pain Take 1 Tablet by mouth every 6 hours as needed for Pain, Severe. 60 Tablet 0 12/10/2022 12/21/19 Discontinu ed(Refill) documented as of this encounter (statuses as of 12/21/2022) Active Problems Problem Noted Date Diagnosed Date [...] as of this encounter (statuses as of 12/21/2022) Resolved Problems Problem Noted Date Diagnosed Date [...] as of this encounter (statuses as of 12/21/2022) Immunizations Name Administration Dates Next Due Hepatitis B, 20+ yrs 12/10/2022,06/02/2022 Pneumococcal Conjugate Vacci ne, 20-valent ([id number]) 04/14/2022 Pneumococcal Polysaccharide PPV23 (Pneumovax) 07/28/2020 SEASONAL INFLUENZA, PF, 6 M & Above, IM , (FLULAVAL or FLUZONE) 12/10/2022,10/13/2018 Seasonal Influenza Vac, Quad , Cell Cult, PF, 6 Mos and Up, IM, (Flucelvax Quad) 11/17/2021 Seasonal Influenza, Split, I IV3, With Preserve, [...] encounter Miscellaneous Notes * Telephone Encounter - Rosa Knowles CMA - 12/21/2022 9:39 AM EST Myg sent * Telephone Encounter - Adelina Rain MD - 12/20/2022 5:28 PM EST Signed Prescriptions: Disp Refills oxyCODONE HCl 5 MG Oral Tablet (Oxy IR) 60 Tab*0 Sig: Take 1 Tablet by mouth every 6 hours as needed for Pain, Severe.Authorizing Provider: ADELINA RAIN Pregabalin 100 MG Oral Capsule (Lyrica) 90 Cap*1 Sig: Take 1 Capsule by mouth in the morning and 1 Capsule at noon and 1 Capsule before bedtime. Increase per [facility] instructions. Authorizing Provider: ADELINA RAIN * Telephone Encounter - Adelina Rain MD - 12/20/2022 5:27 PM EST Rxs signed. Thank you. * Telephone Encounter - Shruthi Godinez RN - 12/20/2022 3:00 PM EST Pt will be returning from [facility] but then going back either tomorrow night or the next morning Hoping that prescriptions can be signed so that she can pick them up from pharmacy tomorrow * Telephone Encounter - Dixie Lau [facility] - 12/20/2022 12:41 PM EST Patient was reviewed by Telemedicine visit today She notes to request her Oxycodone refill today, states was hopeful for an one- off early refill request due to her husbands serious illness and pending hospital stay in [place]. I have no red flags for this one time request. She is also agreeable to continued titration of Lyrica to 100 mg TID Rx's pended for your review Thank you, Dixie Lau [facility] Clinical Pharmacist [facility] documented in this encounter Plan of Treatment Upcoming Encounters Date Type Department Care Team (Late st Contact Info) Description 01/10/2023 9:30 AM EST Telemedicine Pharmacy, [place] [address] [address] [address] [place], [facility] [address] [address] 06/14/2023 11:20 AM EDT Office Visit Family [facility], [place] [address] [phone] Adelina Rain MD [address] [address] Scheduled Procedures Name Priority Associated Diagnoses Date/Ti me COLONOSCOPY FLEXIBLE PROXIMA L DIAGNOSTIC Recall Screening for colon cancer Health Maintenance Due Date Last Done Comments DISCUSS TOBACCO CESSATION (REFER TO SMARTSET #3291) 1975 COVID-19 Vaccine (#1) 04/30/1975 Mammogram 06/10/2019 06/09/2018 Hepatitis B (3 of 3 - 19+ 3-dose series) 02/04/2023 12/10/2022, 06/02/2022 COLONOSCOPY-ANNUAL AGES 18-100 04/08/2023 04/07/2022, 04/07/2022 HbA1c 05/13/2023 11/11/2022, 05/09, 03/21/2022 Albumin/Creatinine Ratio 06/03/2023 06/02/2022 Diabetic Foot Exam 06/03/2023 06/02/2022 GFR 11/12/2023 11/11/2022, 09/08, 09/19/2022, Additional history exists Diabetic Eye Exam 11/23/2023 11/22/2022, 04/07/2022 Depression Screening 12/11/2023 12/10/2022 Lipid Panel 03/21/2027 03/21/2022, 02/0 10/2021, 02/19/2019, [...] Lumbago documented in this encounter Care Teams Continuity Writer Relationship Specialty Start Date End Date Adelina Rain MD [address] [address] PCP - General Family Medicine 02/18/22 documented as of this encounter
--- OUTSIDE RECORDS SUMMARY | 2023-04-16 10:53 | External Medical Summary | Summary of Care ---
Author Name Unknown Organization [facility] Address [address] [place] [address] Phone [phone] Care Team Providers Care Brim Buster Name Role Phone Carlitos Rain MD Primary Care Provider Reason for Visit * Reason Comments Dosage Adjustment In Person (Anticoag Cl inic) Pain Encounter Details Date Type Department Care Team ([facility] st Contact Info) Description 01/10/2023 9:30 AM [facility], [place] [address] [place] [address] [facility] [address] [place] [address] Cervicalgia*; Lumbosacral radiculopathy; Spinal stenosis of lumbar region with radiculopathy; Chronic pain syndrome; Sacroiliitis, not elsewhere classified (HCC) Allergies Active Allergy Reactions Criticality Noted Date Comments Pollen 02/10/2022 documented as of this encounter (statuses as of 01/10/2023) Medications Medication Sig Dispensed Refills Start Date [...] day E11.9 400 Strip 2 04/29/2022 Active TreeveoTouch Delica Plus [id number]: Type 2 diabetes mellitus with hemoglobin A1c [...] the morning. 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 Food insecurity 08/16/2022 Overview: Per [facility] Protocol Type 2 diabetes mellitus wit [...] as of this encounter (statuses as of 01/10/2023) Resolved Problems Problem Noted Date Diagnosed Date [...] as of this encounter (statuses as of 01/10/2023) Immunizations Name Administration Dates Next Due Hepatitis B, 20+ yrs 12/10/2022,06/02/2022 Pneumococcal Conjugate Vacci ne, 20-valent ([id number]) 04/14/2022 Pneumococcal Polysaccharide PPV23 (Pneumovax) 07/28/2020 SEASONAL [...] this encounter Progress Notes * Dixie Lau, [facility] - 01/10/2023 9:30 AM EST Images from the original note were not included. Patient location: HOME. I was in a hospital or clinic location. After connecting through televideo,patient was verified with two unique identifiers. Patient (or authorized legal auto service representative) was then informed that this was a Telemedicine visit and being conducted confidentially over secure lines. Methods to assure confidentiality were taken. Patient acknowledged consent and understanding of pr ivacy and security of the Telemedicine visit. The patient agreed to participate. Medication Therapy Disease Management Clinic - Chronic Pain Management Progress Note 01/10/2023 Caren Johnson, identified by name and date of , is a 47 year old female being seen for chronic pain management/education. Patient presents to pain MTM clinic for return visit. Referring Physician: Carlitos Rain MD Medication Use Agreement: on file Patient's Pharmacy: [facility] CHIEF COMPLAINT: OA/ chronic back pain, failed surgeries Fibromyalgia Interval History: Tolerating Lyrica well Pain levels spike due to extra activity Pain described as: radiation around the lower [...] (problem unlikely) Daily MME: 15 PDMP Reviewed (01/10/2023): Urine Toxicology Screens: UDS 10/28/22: (+) oxycodone/ [...] increased Lyrica titration to 100 mg TID, no side effects noted. Unclear how much is helping, as her activity level is very high due to extra activity due to care of house and due to new cancer diagnosis Adherence: Reviewed current regimen, patient is adherent to regimen. Treatment options: Continue current regimen, will recheck in a few weeks to see if pain levels stabilize Treatment concerns: Patient notes to be taking [...] misuse have been exhibited. PLAN: Continue current regimen, will recheck in a few weeks to see if pain levels stabilize Medication changes: no change Pain Medications: Oxycodone 5 mg QID PRN Topamax 50 mg BID for migraines Lyrica 100 mg TID Patient verbalized understanding of the plan. Contact clinic with any issues. FOLLOW UP: Return to clinic in 2-3 weeks 01/25/2023 Dixie Lau [facility] Clinical Pharmacist - Medical Technologist Microbiology Medication Therapy Management Clinic 01/10/2023, 9:30 AM documented in this encounter Plan of Treatment Upcoming Encounters Date Type Department Care Team (Late st Contact Info) Description 01/25/2023 11:30 AM EST Telemedicine Pharmacy, [address] [phone] [facility] [address] [address] 06/14/2023 11:20 AM EDT Office Visit Family [facility], [address] [phone] Carlitos Rain MD [address] [address] 01/09/2024 10:30 AM EST Appointment Radiology, [address] [address] Scheduled Procedures Name Priority Associated Diagnoses Date/Ti [...] classified documented in this encounter Care Teams Brim Buster Relationship Specialty Start Date End Date Carlitos Rain MD [address] [address] PCP - General Family Medicine 02/18/22 documented as of this encounter
--- OUTSIDE RECORDS SUMMARY | 2023-04-16 10:53 | External Medical Summary | Summary of Care ---
Author Name Unknown Organization [facility] Address [address] [place] [address] Phone [phone] Care Team Providers Care Tank Truck Loader Name Role Phone Carlitos Rain MD Primary Care Provider Encounter Details Date Type Department Care Team (Late st Contact Info) Description 07/20/2022 Population Health External Data Unspecified Department Allergies Active Allergy Reactions Criticality Noted Date Comments Pollen 02/10/2022 documented as of this encounter (statuses as of 12/20/2022) Medications Medication Sig Dispensed Refills Start Date [...] Strip 2 04/29/2022 Active OneTouch Delica Plus [id number] s:Type 2 diabetes mellitus with hemoglobin A1c goal of less than 8.0% (HCC) Up to 4 times a day E11.9 400 Each 2 04/29/2022 Active Ondansetron 4 MG Oral Tablet DisintegratingIndic [...] the morning. 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 Food insecurity 08/16/2022 Overview: Per [facility] Protocol Type 2 diabetes mellitus wit [...] as of this encounter (statuses as of 12/20/2022) Resolved Problems Problem Noted Date Diagnosed Date [...] as of this encounter (statuses as of 12/20/2022) Immunizations Name Administration Dates Next Due Hepatitis B, 20+ yrs 06/02/2022 Pneumococcal Conjugate Vacci ne, 20-valent ([id number]) 04/14/2022 Pneumococcal Polysaccharide PPV23 (Pneumovax) 07/28/2020 SEASONAL INFLUENZA, PF, 6 M & Above, IM , (FLULAVAL or FLUZONE) 10/13/2018 Seasonal Influenza Vac, Quad , Cell Cult, [...] Description 01/10/2023 9:30 AM EST Telemedicine Pharmacy, [place] [address] [address] [facility] [address] [address] 06/14/2023 11:20 AM EDT Office Visit [facility] [address] [phone] Carlitos Rain MD [address] [address] Scheduled Procedures Name Priority Associated Diagnoses Date/Ti me COLONOSCOPY FLEXIBLE PROXIMA L DIAGNOSTIC Recall Screening for colon cancer Health Maintenance Due Date Last Done Comments DISCUSS TOBACCO CESSATION (REFER TO SMARTSET #9986) 1975 COVID-19 Vaccine (#1) 04/30/1975 Mammogram 06/10/2019 [...] Date Last Indicated Resolved Time Respiratory Rule-Out 09/29/2022 09/29/2022 023 12:00 PM EDT COVID-19 Rule-Out 09/29/2022 09/29/2022 09/29/2022 12:00 PM EDT documented as of this encounter Care Teams Tank Truck Loader Relationship Specialty Start Date End Date Carlitos Rain MD [address] [address] PCP - General Family Medicine 02/18/22 documented as of this encounter
--- OUTSIDE RECORDS SUMMARY | 2023-04-16 10:53 | External Medical Summary | Summary of Care ---
Author Name Unknown Organization [facility] Address [address] [place] [address] Phone [phone] Care Team Providers Care Administrative Intern Name Role Phone Carlitos Rain MD Primary Care Provider Reason for Visit * Reason Onset Date Comments Physical-Exam yrly Medication Administration 12/10/2022 Flu an d/or Pneumo Inj Encounter Details Date Type Department Care Team ([facility] Contact Info) Description 12/10/2022 12:20 PM EDT Office Visit [facility] [address] [place] [address] Ale Fontaine CRNP [address] [place] [address] Routine medical exam*; Need for prophylactic vaccination and inoculation against influenza; Need for hepatitis B vaccination; Type 2 diabetes mellitus with hemoglobin A1c goal of less than 7.0% ([facility]); Hypertension goal BP (blood pressure) < 140/90; Gastroesophageal reflux disease, unspecified whether esophagitis present; Chronic pain syndrome; Lumbosacral radiculopathy; Insomnia, unspecified type; Tobacco use disorder Allergies Active Allergy Reactions Criticality Noted Date Comments Pollen 02/10/2022 documented as of this encounter (statuses as of 12/10/2022) Medications Medication Sig Dispensed Refills Start Date [...] Strip 2 04/29/2022 Active OneTouch Delica Plus [id number] :Type 2 diabetes mellitus with hemoglobin A1c [...] hemoglobin A1c goal of less than 7.0% ([facility]) Inject 1.5 mg under the skin once a week. 6 mL 2 10/29/2022 Active Pramipexole Dihydrochloride 0.5 MG Oral Tablet (Mirapex) Take 1 Tablet by mouth at bedtime. 30 Tablet 5 11/04/2022 Active busPIRone HCl 5 MG Oral Tablet (Buspar) Take 1 Tablet by mouth in the morning and 1 Tablet at noon and 1 Tablet before bedtime. 90 Tablet 5 11/05/2022 Active Pregabalin 75 MG Oral Capsule (Lyrica) Take 1 Capsule by mouth in the morning and 1 Capsule at noon and 1 Capsule before bedtime. 90 Capsule 1 11/25/2022 Active Esomeprazole Magnesium 40 MG Oral Capsule [...] needed for Pain, Severe. 60 Tablet 0 11/26/2022 12/10/19 23 Discontinu ed(Refill) documented as of this encounter (statuses as of 12/10/2022) Active Problems Problem Noted Date Diagnosed Date Generalized osteoarthritis 10/28/2022 Predominant disturbance of emotions 09/23/2022 Food insecurity 08/16/2022 Overview: Per [facility] Protocol Type 2 diabetes mellitus wit [...] as of this encounter (statuses as of 12/10/2022) Resolved Problems Problem Noted Date Diagnosed Date [...] as of this encounter (statuses as of 12/10/2022) Immunizations Name Administration Dates Next Due Hepatitis B, 20+ yrs 12/10/2022,06/02/2022 Pneumococcal Conjugate Vacci ne, 20-valent ([id number]) 04/14/2022 Pneumococcal Polysaccharide PPV23 (Pneumovax) 07/28/2020 SEASONAL [...] Tobacco: Never Tobacco Cessation:Ready to Q uit: Yes; Counseling Given: No Comments:Trying to quit smoking and has been cutting back Alcohol Use Standard Drinks/Week Comments No 0 (1 standard drink = 0.6 oz pur e alcohol) occ PHQ-2 Answer Date Recorded PHQ Adult Total Score 21 10/28/2022 Hunger Vital Sign Answer Date Recorded Within [...] Sign Reading Time Taken Comments Blood Pressure 110/76 12/10/2022 12:21 PM EDT Pulse 68 12/10/2022 12:21 PM EDT Temperature 36.3 C (97.4 F) 12/10/2022 1 2:21 PM EDT Respiratory Rate 15 12/10/2022 12:2 1 PM EDT Oxygen Saturation 98% 12/10/2022 12: 21 PM EDT Inhaled Oxygen Concentration - - Weight 76.1 kg (167 lb 12.8 oz) 023 12:21 PM EDT Height - - Body Mass Index 31.71 09/29/2022 10:18 AM EDT documented in this encounter Progress Notes * Rosa Knowles CMA - 12/10/2022 1:00 PM EDT Pre-Administration Time Out Procedure Performed: Yes Patient Identified (Ask Name/Date of ): Yes Does the patient have a fever greater than 101 degrees today? No Patient allergic to latex? No Has the patient ever fainted after receiving an injection? No VFC Stock: No Immunization(s) verified: Yes, Immunization Name: Flu and Hep B, VIS Sheet(s) given: Yes Verified Side and Site: Yes Verified Shot(s) with Parent(s)/Patient: Yes Pt tolerated well. * Ale Fontaine CRNP - 12/10/2022 12:24 PM EDT Images from the original note were not included. History of Present Illness Caren Johnson is a 47 year old female that presents for Physical-Exam (yrly) and Medication Administration (Flu and/or Pneumo Inj) Diabetes - metformin and trulicity. Average blood sugars at home are around 90- 100. No polyuria, polydipsia or vision changes. Recent A1C 5.0 HTN/HLD - atorvastatin, lisinopril. No chest pain, shortness of breath, dizziness, palpitations or edema. GERD - esomeprazole. Symptoms are well controlled on this medication. Chronic pain syndrome/fibromyalgia/multiple back surgeries - Oxycodone, Lyrica. Going to the chiropractor. Insomnia - she is taking melatonin without significant improvement. Sometimes only sleeping for about 3 hours. She reports difficulty staying asleep. No problems with staying asleep. She denies startling herself awake, needing to go to the bathroom or because she is uncomfortable. She does not nap during the day. Smokes about 5 cigarettes a day, she is trying to cut back and quit. Occasional alcohol. Diet/exercise: cleans her house and stays active. No structured exercise. Gave up sugar, she is eating, but smaller portions. Physical Exam Vitals: 12/10/22 1221 Temp: 36.3 C (97.4 F) Pulse: 68 Resp: 15 SpO2: 98% BP: 110/76 Physical Exam Vitals and nursing note reviewed. Constitutional: General: She is not in acute distress. Appearance: Normal appearance. She is obese. She is not ill-appearing. HENT: Head: Normocephalic and atraumatic. Right Ear: Tympanic membrane and ear canal normal. Left Ear: Tympanic membrane and ear canal normal. Nose: Nose normal. Mouth/Throat: Mouth: Mucous membranes are moist. Pharynx: Oropharynx is clear. Eyes: Extraocular Movements: Extraocular movements intact. Cardiovascular: Rate and Rhythm: Normal rate and regular rhythm. Heart sounds: Normal heart sounds. No murmur heard. No friction rub. No gallop. Pulmonary: Effort: Pulmonary effort is normal. No respiratory distress. Breath sounds: Normal breath sounds. No wheezing, rhonchi or rales. Abdominal: General: Bowel sounds are normal. Musculoskeletal: Cervical back: Normal range of motion and neck supple. No tenderness. Right lower leg: No edema. Left lower leg: No edema. Lymphadenopathy: Cervical: No cervical adenopathy. Skin: General: Skin is warm and dry. Neurological: Mental Status: She is alert and oriented to person, place, and time. Gait: Gait normal. Psychiatric: Mood and Affect: Mood normal. Behavior: Behavior normal. I have reviewed the following results: Hemoglobin A1C and BMP Assessment and Plan Routine medical exam Discussed age-appropriate health and safety recommendations including routine care recommendations,diet and exercise. Need for prophylactic vaccination and inoculation against influenza - INFLUENZA VACC, QUAD, PF, 6 MONTHS & UP, 0.5 ML, IM Need for hepatitis B vaccination - HEP B VACCINE, 20+ YRS (3-DOSE) Type 2 diabetes mellitus with hemoglobin A1c goal of less than 7.0% (HCC) Continue current medications. A1C well controlled. Hypertension goal BP (blood pressure) < 140/90 At goal. Continue lisinopril. Gastroesophageal reflux disease, unspecified whether esophagitis present Stable. Continue esomeprazole. Chronic pain syndrome Stable on current regimen. Lumbosacral radiculopathy Stable on current regimen. Insomnia, unspecified type Trazodone at bedtime. Reviewed side effects and warnings. Tobacco use disorder Trying to quit. Daily smoker. Wrap-Up Follow Up: Return in about 6 months (around 06/10/2023), or if symptoms worsen or fail to improve, for follow-up with Dr. Rain. | For: follow-up with Dr. Rain | Check-out note: Ira mammo with order from May Time: I spent a total of 30-39 minutes (exact time 33 mins) on the date of service in preparation, delivery, and documentation of the care provided to Caren Johnson excluding any time spent in the performance of separately billed services. documented in this encounter Nursing Notes * Rosa Knowles CMA - 12/10/2022 12:14 PM EDT Chief Complaint Patient presents with Physical-Exam yrly Medication Administration Flu and/or Pneumo Inj Flu and 2nd Hep b today. documented in this encounter Plan of Treatment Upcoming Encounters Date Type Department Care Team (Late st Contact Info) Description 12/17/2022 2:30 PM EST Appointment Radiology, [place] [address] [address] 12/20/2022 8:00 AM EST Telemedicine Pharmacy, [place] [address] [address] [facility] [address] [address] 12/29/2022 1:30 PM EST Office Visit Orthopaedics, [facility] [address] [address] Fidencio Montenegro, DO [address] [place] [address] 06/14/2023 11:20 AM EDT Office Visit [facility], [place] [address] [phone] Carlitos Rain MD [address] [address] Scheduled Procedures Name Priority Associated Diagnoses Date/Ti me COLONOSCOPY FLEXIBLE PROXIMA L DIAGNOSTIC Recall Screening for colon cancer Health Maintenance Due Date Last Done Comments DISCUSS TOBACCO CESSATION (REFER TO SMARTSET #2338) 1975 COVID-19 Vaccine (#1) 04/30/1975 Mammogram 06/10/2019 06/09/2018 Depression, Most Recent Score >= 10 (will fire each visit until score < 10) 10/29/2022 12/10/2022 Hepatitis B (3 of 3 - 19+ 3-dose series) 02/04/2023 12/10/2022, 06/02/2022 COLONOSCOPY-ANNUAL AGES 18-100 04/08/2023 04/07/2022, 04/07/2022 HbA1c 05/13/2023 11/11/2022, 05/09, 03/21/2022 Albumin/Creatinine Ratio 06/03/2023 06/02/2022 Diabetic Foot Exam 06/03/2023 06/02/2022 GFR 11/12/2023 11/11/2022, 09/08, 09/19/2022, Additional history exists Diabetic Eye Exam 11/23/2023 11/22/2022, 04/07/2022 Lipid Panel 03/21/2027 03/21/2022, 02/0 10/2021, 02/19/2019, [...] as of this encounter Visit Diagnoses Diagnosis Routine medical exam- Primary Routine general medical examination at a health care facility Need for prophylactic vaccination and inoculation against influenza Need for hepatitis B vaccination Need for prophylactic vaccination and inoculation against viral hepatitis Type 2 diabetes mellitus with hemoglobin A1c goal of less than 7.0% ([facility]) Hypertension goal BP (blood pressure) < 140/90 Unspecified essential hypertension Gastroesophageal reflux disease, unspecified whether esophagitis present Chronic pain syndrome Lumbosacral radiculopathy Thoracic or lumbosacral neuritis or radiculitis, unspecified Insomnia, unspecified type Tobacco use disorder documented in this encounter Care Teams Administrative Intern Relationship Specialty Start Date End Date Carlitos Rain MD [address] [address] PCP - General Family Medicine 02/18/22 documented as of this encounter"
--- OUTSIDE RECORDS SUMMARY | 2023-04-16 10:53 | External Medical Summary | Summary of Care ---
Author Name Unknown Organization [facility] Address [address] [place] [address] Phone [phone] Care Team Providers Care Operator/Assistant Foreman Name Role Phone Carlitos Rain MD Primary Care Provider Encounter Details Date Type Department Care Team (Latest Contact Info) Description 01/05/2023 11:42 AM EST - 01/05/2023 11:59 PM EST Hospital Encounter Radiology, [place] [address] [place] [address] Arrived Discharge Disposition: Home - Self Care Allergies Active Allergy Reactions Criticality Noted Date Comments Pollen 02/10/2022 documented as of this encounter (statuses as of 01/06/2023) Medications Medication Sig Dispensed Refills Start Date End Date Status cetirizine (ZYRTEC) 10 MG TabletIndications:Sea huang allergies Take 1 Tab by mouth daily. 90 Tab 3 06/09/2018 Active Montelukast Sodium 10 MG Oral Tablet Take by mouth daily. 0 01/07/2021 Active Alcohol Prep Pads 70 % PadIndications:Type 2 diabetes mellitus with hemoglobin A1c goal of less than 7.0% ([facility]) Use for injections. Injects trulicity once weekly 100 Each 1 03/26/2022 Active OneTouch Verio In Vitro Strip (Glucose Blood)Indications:Typ e 2 diabetes mellitus with hemoglobin A1c goal of less than 8.0% (HCC) Use up to 4 times a day E11.9 400 Strip 2 04/29/2022 Active OneTouch Delica Plus [id number]: Type 2 diabetes mellitus with hemoglobin A1c [...] as of this encounter (statuses as of 01/06/2023) Active Problems Problem Noted Date Diagnosed Date Generalized osteoarthritis 10/28/2022 Predominant disturbance of emotions 09/23/2022 Food insecurity 08/16/2022 Overview: Per [facility] Protocol Type 2 diabetes mellitus wit [...] as of this encounter (statuses as of 01/06/2023) Resolved Problems Problem Noted Date Diagnosed Date [...] as of this encounter (statuses as of 01/06/2023) Immunizations Name Administration Dates Next Due Hepatitis B, 20+ yrs 12/10/2022,06/02/2022 Pneumococcal Conjugate Vacci ne, 20-valent ([id number]) 04/14/2022 Pneumococcal Polysaccharide PPV23 (Pneumovax) 07/28/2020 SEASONAL [...] Description 01/10/2023 9:30 AM EST Telemedicine Pharmacy, [place] [address] [address] [facility] [address] [address] 06/14/2023 11:20 AM EDT Office Visit Family [facility], [place] [address] [phone] Carlitos Rain MD [address] [address] Pending Results Name Type Priority Associated Diagnoses Date /Time MAMMOGRAM SCREENING CASTILLO BILATERAL Medical Imaging Routine Encounter for screening mammogram for breast cancer 01/05/2023 12:21 PM EST Scheduled Procedures Name Priority Associated Diagnoses Date/Ti me COLONOSCOPY FLEXIBLE PROXIMA L DIAGNOSTIC Recall Screening for colon cancer Health Maintenance Due Date Last Done Comments DISCUSS TOBACCO CESSATION (REFER TO SMARTSET #7282) 1975 COVID-19 Vaccine (#1) 04/30/1975 Mammogram 06/10/2019 06/09/2018 Hepatitis B (3 of 3 - 19+ 3-dose series) 02/04/2023 12/10/2022, 06/02/2022 COLONOSCOPY-ANNUAL AGES 18-100 04/08/2023 04/07/2022, 04/07/2022 HbA1c 05/13/2023 11/11/2022, 05/09, 03/21/2022 Albumin/Creatinine Ratio 06/03/2023 06/02/2022 Diabetic Foot Exam 06/03/2023 06/02/2022 GFR 11/12/2023 11/11/2022, 09/08, 09/19/2022, Additional history exists Diabetic Eye Exam 11/23/2023 11/22/2022, 04/07/2022 Depression Screening 12/11/2023 12/10/2022 Lipid Panel 03/21/2027 03/21/2022, 0210/2021, 02/19/2019, Additional [...] this encounter Visit Diagnoses Diagnosis Encounter for screening mammogram for breast cancer documented in this encounter Care Teams Operator/Assistant Foreman Relationship Specialty Start Date End Date Carlitos Rain MD [address] [phone] PCP - General Family Medicine 02/18/22 documented as of this encounter
--- OUTSIDE RECORDS SUMMARY | 2023-04-16 10:53 | External Medical Summary | Summary of Care ---
Author Name Unknown Organization [facility] Address [address] [place] [address] Phone [phone] Care Team Providers Care Oilseed Meat Presser Name Role Phone Carlitos Rain MD Primary Care Provider Reason for Visit * Reason Comments Dosage Adjustment In Person (Anticoag Cl inic) Pain Encounter Details Date Type Department Care Team ([facility] st Contact Info) Description 12/20/2022 8:00 AM [facility] Telemedicine Pharmacy, [place] [address] [place] [address] [place] [facility] [address] [place] [address] Spinal stenosis of lumbar region with radiculopathy*; Chronic pain syndrome; Cervicalgia; Lumbosacral radiculopathy; Sacroiliitis, not elsewhere classified (HCC) Allergies Active [...] Strip 2 04/29/2022 Active OneTouch Delica Plus [id number] :Type 2 diabetes mellitus with hemoglobin A1c goal of less than 8.0% ([facility]) Up to 4 times a [...] hemoglobin A1c goal of less than 8.0% ([facility]) Take 1 Tablet by mouth [...] less than 7.0% ([facility]) Inject 1.5 mg under the [...] the day. 90 Capsule 1 11/29/2022 Active oxyCODONE HCl 5 MG Oral Tablet (Oxy IR)Indications:Acute exacerbation of chronic low back pain Take 1 Tablet by mouth every 6 hours as needed for Pain, Severe. 60 Tablet 0 12/10/2022 Active traZODone HCl 50 MG Oral Tablet (Desyrel) Take 1 Tablet by mouth at bedtime. 30 Tablet 5 12/10/2022 Active Pregabalin 75 MG Oral Capsule (Lyrica) Take 1 Capsule by mouth in the morning and 1 Capsule at noon and 1 Capsule before bedtime. 90 Capsule 1 11/25/2022 12/21/19 23 Discontinu ed(Medicat ion/Dose Changed) documented as of this encounter (statuses as of 12/20/2022) Active Problems Problem Noted Date Diagnosed Date Generalized osteoarthritis 10/28/2022 Predominant disturbance of emotions 09/23/2022 Food insecurity 08/16/2022 Overview: Per [facility] Protocol Type 2 diabetes mellitus wit [...] yrs 12/10/2022,06/02/2022 Pneumococcal Conjugate Vacci ne, 20-valent ([id number]) 04/14/2022 Pneumococcal Polysaccharide PPV23 (Pneumovax) 07/28/2020 SEASONAL [...] this encounter Progress Notes * Dixie Lau, [facility] - 12/20/2022 8:01 AM EST Images from the original note were not included. Patient location: HOME. I was in a hospital or clinic location. After connecting through televideo,patient was verified with two unique identifiers. Patient (or authorized legal office machines sales representative) was then informed that this was a Telemedicine visit and being conducted confidentially over secure lines. Methods to assure confidentiality were taken. Patient acknowledged consent and understanding of pr ivacy and security of the Telemedicine visit. The patient agreed to participate. Medication Therapy Disease Management Clinic - Chronic Pain Management Progress Note 12/20/2022 Caren Johnson, identified by name and date of , is a 47 year old female being seen for chronic pain management/education. Patient presents to pain MTM clinic for return visit. Referring Physician: Carlitos Rain MD Medication Use Agreement: on file Patient's Pharmacy: [facility] CHIEF COMPLAINT: OA/ chronic back pain, failed surgeries Fibromyalgia Interval History: Patient notes to be tolerating Lyrica titration at 75 mg TID. Patient would like to have more pain control. Pain described as: radiation around the lower [...] (problem unlikely) Daily MME: 15 PDMP Reviewed (12/20/2022): Urine Toxicology Screens: Urine Toxicology Screens: UDS 10/28/22: (+) oxycodone/ oxymorphone (+) THC Pill Count: n/a Functional Goal: to be able to sit and sleep SA Opioids: Oxycodone LA Opioids: NSAIDS: Muscle relaxants: Flexeril Antidepressants: Cymbalta: did not work Anticonvulsants: Gabapentin Lyrica Other: Current Pain Medications: Pain Medications: Oxycodone 5 mg QID PRN Topamax 50 mg BID for migraines Lyrica 75 mg TID Tizanidine 4 mg BID PRN: from [facility], not MTM Wellbutrin Buspirone Creatinine Clearance: Serum creatinine: 0.8 [...] that has presented post stabilization of her t-spine. She has had no new injuries. Dr Mc appt yesterday, and notes no current surgery is indicated . Patient notes to be tolerating increased Lyrica titration to 75 mg TID. Patient has also noted to have cancelled all other appointments at the moment due to having to take care family. Adherence: Reviewed current regimen, patient is adherent to regimen. Treatment options: Continue slow Lyrica titration. Treatment concerns: Patient notes to be taking care of a family member at this time and has cancelled all other appointments other than following with pain MTM. Education provided: Education and MOA provided on [...] or misuse have been exhibited. PLAN: Continue slow Lyrica titration. Medication changes: yes, see below Pain Medications: Oxycodone 5 mg QID PRN Topamax 50 mg BID for migraines Tizanidine 4 mg BID PRN: from U, not MTM INCREASE: Week 1: Lyrica 75 mg/ 75 mg /100 mg Week 2: Lyrica 100 mg/ 75 mg /100 mg Week 3 and after: Lyrica 100 mg three times a day Patient verbalized understanding of the plan. Contact clinic with any issues. FOLLOW UP: Return to clinic in 3 weeks 01/10/2023 Dixie Lau [facility] Clinical Pharmacist - Business Development Sales Executive Medication Therapy Management Clinic 12/20/2022, 8:01 AM documented in this encounter Plan of Treatment Upcoming Encounters Date Type Department Care Team (Late st Contact Info) Description 01/10/2023 9:30 AM EST Telemedicine Pharmacy, [place] [address] [address] [address] [facility] [address] [address] 06/14/2023 11:20 AM EDT Office Visit [facility] [address] [phone] Carlitos Rain MD [address] [address] Scheduled Procedures Name Priority Associated Diagnoses Date/Ti me COLONOSCOPY FLEXIBLE PROXIMA L DIAGNOSTIC Recall Screening for colon cancer Health Maintenance Due Date Last Done Comments DISCUSS TOBACCO CESSATION (REFER TO SMARTSET #3062) 1975 COVID-19 Vaccine (#1) 04/30/1975 Mammogram 06/10/2019 [...] as of this encounter Visit Diagnoses Diagnosis Spinal stenosis of lumbar region with radiculopathy- Primary Spinal stenosis, lumbar region, without neurogenic claudication Chronic pain syndrome Cervicalgia Lumbosacral radiculopathy Thoracic or lumbosacral neuritis or radiculitis, unspecified Sacroiliitis, not elsewhere classified (HCC) Sacroiliitis, not elsewhere classified documented in this encounter Care Teams Oilseed Meat Presser Relationship Specialty Start Date End Date Carlitos Rain MD [address] [address] PCP - General Family Medicine 02/18/22 documented as of this encounter
--- OUTSIDE RECORDS SUMMARY | 2023-04-16 10:53 | External Medical Summary | Summary of Care ---
Author Name Unknown Organization [facility] Address [address] [place] [address] Phone [phone] Care Team Providers Care Atm Mechanic Name Role Phone Carlitos Rain MD Primary Care Provider Reason for Visit * Reason Onset Date Comments Test Results 01/07/2023 Order Request 01/07/2023 Encounter Details Date Type Department Care Team (Late st Contact Info) Description 01/07/[address] [phone] Katelin Rivera RN Test Results; Order Request Allergies Active Allergy Reactions Criticality Noted Date Comments Pollen 02/10/2022 documented as of this encounter (statuses as of 01/07/2023) Medications Medication Sig Dispensed Refills Start Date End Date Status cetirizine (ZYRTEC) 10 MG TabletIndications:Sea huang allergies Take 1 Tab by mouth daily. 90 Tab 3 06/09/2018 Active Montelukast Sodium 10 MG Oral Tablet Take by mouth daily. 0 01/07/2021 Active Alcohol Prep Pads 70 % PadIndications:Type 2 diabetes mellitus with hemoglobin A1c goal of less than 7.0% ([facility]) Use for injections. 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 Food insecurity 08/16/2022 Overview: Per [facility] Protocol Type 2 diabetes mellitus wit [...] as of this encounter (statuses as of 01/07/2023) Resolved Problems Problem Noted Date Diagnosed Date Resolved Date Nausea without vomiting 02/18/2022 08/02/2022 Migraine without status migr ainosus, not intractable [...] as of this encounter (statuses as of 01/07/2023) Immunizations Name Administration Dates Next Due Hepatitis B, 20+ yrs 12/10/2022,06/02/2022 Pneumococcal Conjugate Vacci ne, 20-valent ([id number]) 04/14/2022 Pneumococcal Polysaccharide PPV23 (Pneumovax) 07/28/2020 SEASONAL [...] encounter Miscellaneous Notes * Telephone Encounter - Daniel Rai OSA - 01/07/2023 2:41 PM EST Called and scheduled * Telephone Encounter - Katelin Rivera RN - 01/07/2023 2:21 PM EST Please help schedule one year mammogram. Thank you! Reason for Call: Test Results and Order Request Contact: Joanne Verde Contact Type: Test Results Outcome: MyG sent. Order placed. High Emergency Department Utilizer Face to face time spent with Patient (minutes): 0 Total Time including non face to face (minutes): 10 documented in this encounter Plan of Treatment Upcoming Encounters Date Type Department Care Team (Late st Contact Info) Description 01/10/2023 9:30 AM EST Telemedicine Pharmacy, [place] [address] [address] [facility] [address] [address] 06/14/2023 11:20 AM EDT Office Visit Family Practice, [place] [address] [phone] Carlitos Rain MD [address] [address] 01/09/2024 10:30 AM EST Appointment Radiology, [place] [address] [address] Scheduled Orders Name Type Priority Associated Diagnoses Orde r Schedule MAMMOGRAM SCREENING CASTILLO BILATERAL Medical Imaging Routine Encounter for screening mammogram for breast cancer Expected: 01/09/2024, Expires: 02/08/2024 Scheduled Procedures Name Priority Associated Diagnoses Date/Ti me COLONOSCOPY FLEXIBLE PROXIMA L DIAGNOSTIC Recall Screening for colon cancer Health Maintenance Due Date Last Done Comments DISCUSS TOBACCO CESSATION (REFER TO SMARTSET #9734) 1975 COVID-19 Vaccine (#1) 04/30/1975 Hepatitis B [...] Diagnosis Encounter for screening mammogram for breast cancer- Primary documented in this encounter Care Teams Atm Mechanic Relationship Specialty Start Date End Date Carlitos Rain MD 21 [facility] [address] [address] PCP - General Family Medicine 02/18/22 documented as of this encounter
--- OUTSIDE RECORDS SUMMARY | 2023-04-16 10:53 | External Medical Summary | Summary of Care ---
Author Name Unknown Organization [facility] Address [address] [place] [address] Phone [phone] Care Team Providers Care Water Valve Repairer Name Role Phone Carlitos Rain MD Primary Care Provider Encounter Details Date Type Department Care Team (Late st Contact Info) Description 12/27/2022 3:00 PM EST Scheduled Telephone Care Coordination and Integration [address] [place], [place] [id number] Elva Pinon [facility] Gr[facility] Director [address] [place] [address] Allergies Active Allergy Reactions Criticality Noted Date Comments Pollen 02/10/2022 documented as of this encounter (statuses as of 12/27/2022) Medications Medication Sig Dispensed Refills Start Date End Date Status cetirizine (ZYRTEC) 10 MG TabletIndications:Sea huang allergies Take 1 Tab by mouth daily. 90 Tab 3 06/09/2018 Active Montelukast Sodium 10 MG Oral Tablet Take by mouth daily. 0 01/07/2021 Active Alcohol Prep Pads 70 % PadIndications:Type 2 diabetes mellitus with hemoglobin A1c goal of less than 7.0% ([facility]) Use for injections. Injects trulicity once weekly 100 Each 1 03/26/2022 Active OneTouch Verio In Vitro Strip (Glucose Blood)Indications:Typ e 2 diabetes mellitus with hemoglobin A1c goal of less than 8.0% ([facility]) Use up to 4 times a day E11.9 400 Strip 2 04/29/2022 Active OneTouch Delica Plus [id number]: Type 2 diabetes mellitus with hemoglobin A1c [...] hemoglobin A1c goal of less than 7.0% ([facility]) Inject 1.5 mg under the skin [...] MTM instructions. 90 Capsule 1 12/20/2022 Active documented as of this encounter (statuses as of 12/27/2022) Active Problems Problem Noted Date Diagnosed Date [...] as of this encounter (statuses as of 12/27/2022) Resolved Problems Problem Noted Date Diagnosed Date [...] as of this encounter (statuses as of 12/27/2022) Immunizations Name Administration Dates Next Due Hepatitis B, 20+ yrs 12/10/2022,06/02/2022 Pneumococcal Conjugate Vacci ne, 20-valent ([id number]) 04/14/2022 Pneumococcal Polysaccharide PPV23 (Pneumovax) 07/28/2020 SEASONAL [...] of this encounter Progress Notes * Elva Pinon, [facility] Gr[facility] Director - 12/27/2022 2:08 PM EST Phone call to Caren, per the request of Shruthi Godinez RN CM Patient's , Guilherme, 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 Main need is fuel cards. Caren has utilized [facility] in [place] twice in past 6 monthsand is currently no eligible to use again for 3 months Discussed Vish Roque---would need official diagnosis to apply. Scheduled for pathology results appt 01/03. Currently has plenty of food. Utilized food [employer] last week, has $65 in food stamps [...] Denies additional needs/concerns. Has direct line for [employer] for additional needs. documented in this encounter Plan of Treatment Upcoming Encounters Date Type Department Care Team (Late st Contact Info) Description 01/10/2023 9:30 AM EST Telemedicine Pharmacy, [place] [address] [address] [facility] [address] [address] 06/14/2023 11:20 AM EDT Office Visit [facility], [place] [address] [phone] Carlitos Rain MD [address] [address] Scheduled Procedures Name Priority Associated Diagnoses Date/Ti me COLONOSCOPY FLEXIBLE PROXIMA L DIAGNOSTIC Recall Screening for colon cancer Health Maintenance Due Date Last Done Comments DISCUSS TOBACCO CESSATION (REFER TO SMARTSET #5227) 1975 COVID-19 Vaccine (#1) 04/30/1975 Mammogram 06/10/2019 06/09/2018 Hepatitis B (3 of 3 - 19+ 3-dose series) 02/04/2023 12/10/2022, 06/02/2022 COLONOSCOPY-ANNUAL AGES 18-100 04/08/2023 04/07/2022, 04/07/2022 HbA1c 05/13/2023 11/11/2022, 05/09, 03/21/2022 Albumin/Creatinine Ratio 06/03/2023 06/02/2022 Diabetic Foot Exam 06/03/2023 06/02/2022 GFR 11/12/2023 11/11/2022, 09/08, 09/19/2022, Additional history exists Diabetic Eye Exam 11/23/2023 11/22/2022, 04/07/2022 Depression Screening 12/11/2023 12/10/2022 Lipid Panel 03/21/2027 03/21/2022, 02/10/2021, 02/19/2019, Additional [...] filedocumented as of this encounter Care Teams Water Valve Repairer Relationship Specialty Start Date End Date Carlitos Rain MD [address] [address] PCP - General Family Medicine 02/18/22 documented as of this encounter
--- OUTSIDE RECORDS SUMMARY | 2023-04-16 10:53 | External Medical Summary | Summary of Care ---
Author Name Unknown Organization [facility] Address [address] [place] [address] Phone [phone] Care Team Providers Care Spinner Tender Name Role Phone Adelina Rain MD Primary Care Provider Reason for Visit * Reason Onset Date Comments Medication Refill 12/20/2022 Encounter Details Date Type Department Care Team (Late st Contact Info) Description 12/20/2022 Refill Pharmacy, [place] [address] [place] [address] [facility] [address] [place] [address] Acute exacerbation of chronic low back pain [...] A1c goal of less than 7.0% ([facility]) Use for injections. Injects trulicity once weekly 100 Each 1 03/26/2022 Active OneTouch Verio In Vitro Strip (Glucose Blood)Indications:Ty pe 2 diabetes mellitus with hemoglobin A1c goal of less than 8.0% (HCC) Use up to 4 times a day E11.9 400 Strip 2 04/29/2022 Active OneTouch Delica Plus [id number] :Type 2 diabetes mellitus with hemoglobin A1c [...] Active Dulaglutide 1.5 MG/0.5ML Subcutaneous Solution Pen-injector (TrulicTadcast)Indicatio ns:Type 2 diabetes mellitus with hemoglobin A1c goal of less than 7.0% ([facility]) Inject 1.5 mg under [...] yrs 12/10/2022,06/02/2022 Pneumococcal Conjugate Vacci ne, 20-valent ([id number]) 04/14/2022 Pneumococcal Polysaccharide PPV23 (Pneumovax) 07/28/2020 SEASONAL [...] hours as needed for Pain, Severe.Authorizing Provider: RAIN, ADELINA KENNETHPregabalin 100 MG Oral Capsule (Lyrica) 90 Cap*1 Sig: Take 1 Capsule by mouth in the morning and 1 C apsule at noon and 1 Capsule before bedtime. Increase per [facility] instructions. Authorizing Provider: ADELINA RAIN * Telephone Encounter - Adelina Rain MD - 12/20/2022 5:27 PM EST Rxs signed. Thank you. * Telephone Encounter - Shruthi Godinez RN - 12/20/2022 3:00 PM EST Pt will be [facility] but then going back either tomorrow night or the next morning Hoping that prescriptions can be signed so that she can pick them up from pharmacy tomorrow * Telephone Encounter - Dixie Lau RPh - 12/20/2022 12:41 PM EST Patient was reviewed by Telemedicine visit today She notes to request her Oxycodone refill today, states was hopeful for an one- off early refill request due to her husbands serious illness and pending hospital stay in [place]. I have no red flags for this one time request. She is also agreeable to continued titration of Lyrica to 100 mg TID Rx's pended for your review Thank you, Dixie Lau [facility] Clinical Pharmacist [facility] documented in this encounter Plan of Treatment Upcoming Encounters Date Type Department Care Team (Late st Contact Info) Description 01/10/2023 9:30 AM EST Telemedicine Pharmacy, [place] [address] [address] [facility] [address] [address] 06/14/2023 11:20 AM EDT Office Visit Family [facility], [place] [address] [phone] Adelina Rain MD [address] [address] Scheduled Procedures Name Priority Associated Diagnoses Date/Ti [...] Lumbago documented in this encounter Care Teams Spinner Tender Relationship Specialty Start Date End Date Adelina Rain MD [address] [address] PCP - General Family Medicine 02/18/22 documented as of this encounter
--- OUTSIDE RECORDS SUMMARY | 2023-04-16 10:53 | External Medical Summary | Summary of Care ---
Author Name Unknown Organization [facility] Address [address] [place] [address] Phone [phone] Care Team Providers Care Driver Retraining Instructor Name Role Phone Carlitos Rain MD Primary Care Provider Reason for Visit * Reason Onset Date Comments Test Results 01/07/2023 Order Request 01/07/2023 Encounter Details Date Type Department Care Team (Late st Contact Info) Description 01/07/[address] [phone] Katelin Rivera RN Test Results; [...] Strip 2 04/29/2022 Active OneTouch Delica Plus [id number]: Type 2 diabetes mellitus with hemoglobin A1c [...] emotions 09/23/2022 Food insecurity 08/16/2022 Overview: Per [facility] Protocol Type 2 diabetes mellitus wit [...] yrs 12/10/2022,06/02/2022 Pneumococcal Conjugate Vacci ne, 20-valent ([id number]) 04/14/2022 Pneumococcal Polysaccharide PPV23 (Pneumovax) 07/28/2020 SEASONAL [...] Description 01/10/2023 9:30 AM EST Telemedicine Pharmacy, [place] [address] [address] [facility] [address] [address] 06/14/2023 11:20 AM EDT Office Visit Family Practice, [place] [address] [phone] Carlitos Rain MD [address] [address] 01/09/2024 10:30 AM EST Appointment Radiology, [place] [address] [address] Scheduled Orders Name Type Priority Associated Diagnoses Orde r Schedule MAMMOGRAM SCREENING CASTILLO BILATERAL Medical Imaging Routine Encounter for screening mammogram for breast cancer Expected: 01/09/2024, Expires: 02/08/2024 Scheduled Procedures Name Priority Associated Diagnoses Date/Ti me COLONOSCOPY FLEXIBLE PROXIMA L DIAGNOSTIC Recall Screening for colon cancer Health Maintenance Due Date Last Done Comments DISCUSS TOBACCO CESSATION (REFER TO SMARTSET #1183) 1975 COVID-19 Vaccine (#1) 04/30/1975 Hepatitis B [...] Primary documented in this encounter Care Teams Driver Retraining Instructor Relationship Specialty Start Date End Date Carlitos Rain MD 21 [facility] [address] [address] PCP - General Family Medicine 02/18/22 documented as of this encounter
--- OUTSIDE RECORDS SUMMARY | 2023-04-16 10:53 | External Medical Summary | Summary of Care ---
Author Name Unknown Organization [facility] Address [address] [place] [address] Phone [phone] Care Team Providers Care Maint Mechanic Name Role Phone Carlitos Rain MD Primary Care Provider Reason for Referral * Medication Prior Authorization - Closed Specialty Diagnoses / Procedures Referred By Rafiq pendleton Referred To Contact Diagnoses Acute exacerbation of chronic low back pain America Robles CRNP [address] [facility] [place] [address] Referral ID Status Reason Start Date Expiration Date Visits Re quested Visits Authorized [id number] Closed [phone] Reason for Visit * Reason Onset Date Comments Medication Refill 01/11/2023 Encounter Details Date Type Department Care Team (Late st Contact Info) Description [facility] [address] [employer] [address] [place] [phone] Carlitos Rain MD [address] [address] Acute exacerbation of chronic low back pain Allergies Active Allergy Reactions Criticality Noted Date Comments Pollen 02/10/2022 documented as of this encounter (statuses as of 01/11/2023) Medications Medication Sig Dispensed Refills Start Date [...] Strip 2 04/29/2022 Active OneTouch Delica Plus [id number] :Type 2 diabetes mellitus with hemoglobin A1c [...] Pain, Severe. 60 Tablet 0 01/11/2023 Active oxyCODONE HCl 5 MG Oral Tablet (Oxy IR)Indications:Acute exacerbation of chronic low back pain Take 1 Tablet by mouth every 6 hours as needed for Pain, Severe. 60 Tablet 0 12/20/2022 01/12/20 23 Discontinu ed(Refill) documented as of this encounter (statuses as of 01/11/2023) Active Problems Problem Noted Date Diagnosed Date [...] as of this encounter (statuses as of 01/11/2023) Resolved Problems Problem Noted Date Diagnosed Date [...] as of this encounter (statuses as of 01/11/2023) Immunizations Name Administration Dates Next Due Hepatitis B, 20+ yrs 12/10/2022,06/02/2022 Pneumococcal Conjugate Vacci ne, 20-valent ([id number]) 04/14/2022 Pneumococcal Polysaccharide PPV23 (Pneumovax) 07/28/2020 SEASONAL [...] encounter Miscellaneous Notes * Telephone Encounter - America Robles CRNP - 01/11/2023 5:39 PM EST Signed Prescriptions: Disp Refills oxyCODONE HCl 5 MG Oral Tablet (Oxy IR) 60 Tab*0 Sig: Take 1 Tablet by mouth every 6 hours as needed for Pain, Severe. Authorizing Provider: AMERICA ROBLES Refused Prescriptions: Disp Refills Pregabalin 100 MG Oral Capsule (Lyrica) 90 Cap*1 Sig: Take 1 Capsule by mouth in the morning and 1 Cap kelli at noon and 1 Capsule before bedtime. Increase per [facility] instructions. Refused By: SHANTAL REYES Reason for Refusal: Too soon Reason for Refusal Comment: 30DS/ sent to pharmacy 12/20 * Telephone Encounter - Shantal Reyes [facility] - 01/11/2023 5:19 PM ESTPending Prescriptions: Disp Refills oxyCODONE HCl 5 MG Oral Tablet (Oxy IR) 60 Tab*0 Sig: Take 1 Tablet by mouth every 6 hours as needed for Pain, Severe. Refused Prescriptions: Disp Refills Pregabalin 100 MG Oral Capsule (Lyrica) 90 Cap*1 Sig: Take 1 Capsule by mouth in the morning and 1 Capsule at noon and 1 Capsule before bedt galen. Increase per [facility] instructions. Refused By: SHANTAL REYES Reason for Refusal: Too soon Reason for Refusal Comment: 30DS/1 sent to pharmacy 12/20 * Telephone Encounter - Shantal Reyes, [facility] - 01/11/2023 5:17 PM EST I have reviewed the patients controlled substance dispensing history in the Prescription Drug Monitoring Program in compliance with the [facility] regulations before prescribing a controlled substance. PDMP checked on 01/11/2023. Pending Prescriptions: Disp Refills oxyCODONE HCl 5 MG Oral Tablet (Oxy IR) 60 Tab*0 Sig: Take 1 Tablet by mouth every 6 hours as needed for Pain, Severe. Refused Prescriptions: Disp Refills Pregabalin 100 MG Oral Capsule (Lyrica) 90 Cap*1 Sig: Take 1 Capsule by mouth in the morning and 1 Capsule at noon and 1 Capsule before bedtime. Increase per [facility] instructions. Refused By: SHANTAL REYES Reason for Refusal: Too soon Reason for Refusal Comment: 30 sent to pharmacy 12/20 Last Visit: 12/10/2022 (in office), Visit date not found (telemedicine) Next Visit: 06/14/2023 Date medication was last filled: 12/23 Date medication is due for refill: 01/06 Pharmacy: [facility] Is this request for a controlled [...] metabolite is INCONSISTENT with the information provided. Amphetamine Negative Benzodiazepines Negative Cannabinoids Refer to confirmation results (A) Cocaine Metabolite Negative Fentanyl Negative Hydrocodone / Hydromorphone Negative Methadone Metabolite Negative Morphine / Codeine Negative Oxycodone / Oxymorphone Positive (A) Valid Interpretation Normal Creatinine BRAYAN 67 Narrative Cutoff Concentrations: Drug Level Amphetamines [...] request. Please approve if appropriate. Thank you, Shantal Reyes PharmD Clinical Pharmacist [facility] ([facility]) 01/11/23 5:19 PM [phone] * Telephone Encounter - Kacie Raymond PHARM Tech - 01/11/2023 9:18 AM EST Did you pend patient's preferred pharmacy and medication before forwarding?yes Pharmacy: [facility] Pending Prescriptions: Disp Refills oxyCODONE HCl 5 MG Oral Tablet (Oxy IR) 60 Tab*0 Sig: Take 1 Tablet by mouth every 6 hours as needed for Pain, Severe. Pregabalin 100 MG Oral Capsule (Lyrica) 90 Cap*1 Sig: Take 1 Capsule by mouth in the morning and 1 Capsule at noon and 1 Capsule before bedtime. Increase per MTM instructions. Last Visit: 12/10/2022 (in office), Visit date not found (telemedicine) Next Visit: 06/14/2023 If no future appointments scheduled, and last appointment is greater than a year ago, please schedule patient for a follow-up appointment Last date the medication was ordered: 12.20.22 Is this request for a controlled substance?No [...] metabolite is INCONSISTENT with the information provided. Amphetamine Negative Benzodiazepines Negative Cannabinoids Refer to confirmation results (A) Cocaine Metabolite Negative Fentanyl Negative Hydrocodone / Hydromorphone Negative Methadone Metabolite Negative Morphine / Codeine Negative Oxycodone / Oxymorphone Positive (A) Valid Interpretation Normal Creatinine BRAYAN 67 Narrative Cutoff Concentrations: Drug Level Amphetamines [...] 03/21/2022 06:01 AM * Telephone Encounter - Kacie Raymond svp digital sales - 01/11/2023 9:12 AM EST Did you pend patient's preferred pharmacy and medication before forwarding?yes Pharmacy: [email or web address] Pending Prescriptions: Disp Refills oxyCODONE HCl 5 MG Oral Tablet (Oxy IR) 60 Tab*0 Sig: Take 1 Tablet by mouth every 6 hours as needed for Pain, Severe. Last Visit: 12/10/2022 (in office), Visit date not found (telemedicine) Next Visit: 06/14/2023 If no future appointments scheduled, and last appointment is greater than a year ago, please schedule patient for a follow-up appointment Last date the medication was ordered: 12.20.22 Is this request for a controlled substance?Yes, What was the last refill date 12.20.22 w/ quantity 60 and dosage take one tablet by mouth every 6 hours as needed for pain,severe and Urine Drug Screenwas completed Urine Drug Screen: Results for orders placed or performed in visit on 10/28/22 PAIN MANAGEMENT DRUG PANEL, URINE W/ INTERPRETATION Result Value Compliance Interpretation Based on the medication information provided: The positive oxycodone screening result is CONSISTENT with oxycodone use. Confirmatory testing is available upon request. The presence of THC metabolite is INCONSISTENT with the information provided. Amphetamine Negative Benzodiazepines Negative Cannabinoids Refer to confirmation results (A) Cocaine Metabolite Negative Fentanyl Negative Hydrocodone / Hydromorphone Negative Methadone Metabolite Negative Morphine / Codeine Negative Oxycodone / Oxymorphone Positive (A) Valid Interpretation Normal Creatinine BRAYAN 67 Narrative Cutoff Concentrations: Drug Level Amphetamines [...] Description 01/25/2023 11:30 AM EST Telemedicine Pharmacy, [place] [address] [place] [address] [address] [address] [facility] [address] [address] 06/14/2023 11:20 AM EDT Office Visit Family Practice, [place] [address] [phone] Carlitos Rain MD [address] [address] 01/09/2024 10:30 AM EST Appointment Radiology, [place] [address] [address] Scheduled Procedures Name Priority Associated Diagnoses Date/Ti me COLONOSCOPY FLEXIBLE PROXIMA L DIAGNOSTIC Recall Screening for colon cancer Health Maintenance Due Date Last Done Comments DISCUSS TOBACCO CESSATION (REFER TO SMARTSET #9676) 1975 COVID-19 Vaccine (#1) 04/30/1975 Hepatitis B (3 of 3 - 19+ 3-dose series) 02/04/2023 12/10/2022, 06/02/2022 COLONOSCOPY-ANNUAL AGES 18-100 04/08/2023 04/07/2022, 04/07/2022 HbA1c 05/13/2023 11/11/2022, 05/09, 03/21/2022 Albumin/Creatinine Ratio 06/03/2023 06/02/2022 Diabetic Foot Exam 06/03/2023 06/02/2022 GFR 11/12/2023 11/11/2022, 09/08, 09/19/2022, Additional history exists Diabetic Eye Exam 11/23/2023 11/22/2022, 04/07/2022 Depression Screening 12/11/2023 12/10/2022 Mammogram 01/06/2024 01/05/2023, 06/09/2018 Lipid Panel 03/21/2027 03/21/2022, 02/10/2021, 02/19/2019, Additional [...] Lumbago documented in this encounter Care Teams Maint Mechanic Relationship Specialty Start Date End Date Carlitos Rain MD [address] [address] PCP - General Family Medicine 02/18/22 documented as of this encounter
--- OUTSIDE RECORDS SUMMARY | 2023-04-16 10:53 | External Medical Summary | Summary of Care ---
Author Name Unknown Organization [facility] Address [address] [place] [address] Phone [phone] Care Team Providers Care Cyber Workforce Developer And Manager Name Role Phone Carlitos Rain MD Primary Care Provider Encounter Details Date Type Department Care Team (Late st Contact Info) Description 12/16/2022 Telephone Orthopaedics, [address], [place] [address] [place], [place] [id number] Services, Scheduling [address] [place] [address] Allergies Active Allergy Reactions Criticality Noted Date Comments Pollen 02/10/2022 documented as of this encounter (statuses as of 12/22/2022) Medications Medication Sig Dispensed Refills Start Date [...] Strip 2 04/29/2022 Active OneTouch Delica Plus [id number] :Type 2 diabetes mellitus with hemoglobin A1c [...] 11/25/2022 12/21/19 23 Discontinu ed(Medicat ion/Dose Changed) oxyCODONE HCl 5 MG Oral Tablet (Oxy IR)Indications:Acute exacerbation of chronic low back pain Take 1 Tablet by mouth every 6 hours as needed for Pain, Severe. 60 Tablet 0 12/10/2022 12/21/19 Discontinu ed(Refill) documented as of this encounter (statuses as of 12/22/2022) Active Problems Problem Noted Date Diagnosed Date Generalized osteoarthritis 10/28/2022 Predominant disturbance of emotions 09/23/2022 Food insecurity 08/16/2022 Overview: Per [facility] Protocol Type 2 diabetes mellitus wit [...] as of this encounter (statuses as of 12/22/2022) Resolved Problems Problem Noted Date Diagnosed Date [...] as of this encounter (statuses as of 12/22/2022) Immunizations Name Administration Dates Next Due Hepatitis B, 20+ yrs 12/10/2022,06/02/2022 Pneumococcal Conjugate Vacci ne, 20-valent ([id number]) 04/14/2022 Pneumococcal Polysaccharide PPV23 (Pneumovax) 07/28/2020 SEASONAL [...] encounter Miscellaneous Notes * Telephone Encounter - Lillie Preciado OSA - 12/16/2022 4:05 PM EST Called to reschedule patient, however she is leaving to go see her as he is currently admitted to [facility]. Will call her per her request tomorrow afternoon. documented in this encounter Plan of Treatment Upcoming Encounters Date Type Department Care Team (Late st Contact Info) Description 12/27/2022 3:00 PM EST Telemedicine Care Coordination and Integration [address] [place] [address] Elva Pinon, Community Health Php Software Engineer [address] [place] [address] 01/10/2023 9:30 AM EST Telemedicine Pharmacy, [place] [address] [address] [facility] [address] [address] 06/14/2023 11:20 AM EDT Office Visit [facility], [place] [address] [phone] Carlitos Rain MD [address] [address] Scheduled Procedures Name Priority Associated Diagnoses Date/Ti me COLONOSCOPY FLEXIBLE PROXIMA L DIAGNOSTIC Recall Screening for colon cancer Health Maintenance Due Date Last Done Comments DISCUSS TOBACCO CESSATION (REFER TO SMARTSET #4311) 1975 COVID-19 Vaccine (#1) 04/30/1975 Mammogram 06/10/2019 [...] filedocumented as of this encounter Care Teams Cyber Workforce Developer And Manager Relationship Specialty Start Date End Date Carlitos Rain MD [address] [phone] PCP - General Family Medicine 02/18/22 documented as of this encounter
--- OUTSIDE RECORDS SUMMARY | 2023-04-16 10:53 | External Medical Summary | Summary of Care ---
Author Name Unknown Organization [facility] Address [address] [place] [address] Phone [phone] Care Team Providers Care Academic Counselor Name Role Phone Carlitos Rain MD Primary Care Provider Reason for Referral * Evaluate & Treat - Unlimited Visits (Within 10 days (routine)) - Authorized Specialty Diagnoses / Procedures Referred By Rafiq pendleton Referred To Contact Psychology Diagnoses Anxiety and depression Mary Hyde PA-C [address] [place] [id number] Referral ID Status Reason Start Date Expiration Date Visits Requested Visits Authorized [id number] Authorized Specialty Services Required 3 [phone] Question Answer Referral Priority Within 10 days (routine) Where should this appointment be scheduled? [facility] Is this referral for medication management? No Referral To Outside [facility] Reason for Referral: Depression/Anxiety/Bipolar Specific Condition? Generalized Anxiety/Worry Reason for Visit * Reason Comments Acute Encounter Details Date Type Department Care Team (Late st Contact Info) Description 12/29/2022 4:40 PM EST Telemedicine [address] [phone] Mary Hyde PA-C [address] [place] [id number] Anxiety and depression* Allergies Active Allergy Reactions Criticality Noted Date Comments Pollen 02/10/2022 documented as of this encounter (statuses as of 12/29/2022) Medications Medication Sig Dispensed Refills Start Date [...] Strip 2 04/29/2022 Active OneTouch Delica Plus [id number] :Type 2 diabetes mellitus with hemoglobin A1c [...] of less than 7.0% ([facility]) Inject 1.5 mg under the skin once [...] the morning. 30 Tablet 5 12/29/2022 Active buPROPion HCl ER (XL) 150 MG Oral Tablet Extended Release 24 Hour (Wellbutrin XL) Take 1 Tablet by mouth in the morning. 30 Tablet 5 06/02/2022 12/30/19 23 Discontinu ed(Refill) documented as of this encounter (statuses as of 12/29/2022) Active Problems Problem Noted Date Diagnosed Date [...] as of this encounter (statuses as of 12/29/2022) Resolved Problems Problem Noted Date Diagnosed Date [...] as of this encounter (statuses as of 12/29/2022) Immunizations Name Administration Dates Next Due Hepatitis B, 20+ yrs 12/10/2022,06/02/2022 Pneumococcal Conjugate Vacci ne, 20-valent ([id number]) 04/14/2022 Pneumococcal Polysaccharide PPV23 (Pneumovax) 07/28/2020 SEASONAL [...] on file documented as of this encounter Patient Instructions * Patient Instructions* Mary Hyde PA-C - 12/29/2022 4:47 PM EST documented in this encounter Progress Notes * Mary Hyde PA-C - 12/29/2022 4:41 PM EST Images from the original note were not included. History of Present Illness Caren Johnson is a 47 year old female that presents for Acute Medical problems include: T2DM, HTN, GERD, Sacroiliitis, Migraine Specialists: MTM, Rheumatology, Orthopaedics Patient reports her had a tumor removed from his brain recently. They found out today that it is cancer. She has been struggling with anxiety and depression. She is currently on Buspar, Wellbutrin, and Trazodone. She hasn't gotten the Wellbutrin filled recently. She is asking about seeing atherapist. Denies thoughts of harming herself or others. Physical Exam Vitals and physical exam are limited due to nature of telemedicine visit. Physical Exam Constitutional: General: She is not in acute distress. Appearance: Normal appearance. HENT: Head: Normocephalic and atraumatic. Pulmonary: Effort: Pulmonary effort is normal. No respiratory distress. Neurological: Mental Status: She is alert and oriented to person, place, and time. Psychiatric: Mood and Affect: Mood normal. Behavior: Behavior normal. Thought Content: Thought content normal. Judgment: Judgment normal. I have reviewed the following results: None Assessment and Plan Anxiety and depression Patient with worsening anxiety and depression due to her being diagnosed with cancer. Currently taking Buspar and Trazodone. Previously taking Wellbutrin, but has not had it refilled. Refill sent to pharmacy. Referral placed for Psychology and additional resources given. - buPROPion HCl ER (XL) 150 MG Oral Tablet Extended Release 24 Hour (Wellbutrin XL); Take 1 Tablet by mouth in the morning. - ADULT/PEDS PSYCHOLOGY REFERRAL OP Mary Hyde PA-C Wrap-Up Follow Up: Return if symptoms worsen or fail to improve. Telemedicine: Patient location: HOME. I was in a hospital or clinic location. After connecting through televideo,patient was verified with two unique identifiers. Patient (or authorized legal account retention representative) was then informed that this was a Telemedicine visit and being conducted confidentially over secure lines. Methods to assure confidentiality were taken. Patient acknowledged consent and understanding of pr ivacy and security of the Telemedicine visit. The patient agreed to participate. documented in this encounter Plan of Treatment Upcoming Encounters Date Type Department Care Team (Late st Contact Info) Description 01/10/2023 9:30 AM EST Telemedicine Pharmacy, [place] [address] [phone] [facility] [address] [address] 06/14/2023 11:20 AM EDT Office Visit [facility], [place] [address] [phone] Carlitos Rain MD [address] [address] Scheduled Procedures Name Priority Associated Diagnoses Date/Ti me COLONOSCOPY FLEXIBLE PROXIMA L DIAGNOSTIC Recall Screening for colon cancer Scheduled Referrals Name Type Priority Associated Diagnoses Orde r Schedule ADULT/PEDS PSYCHOLOGY REFERRAL OP Referral Within 10 days (routine) Anxiety and depression Ordered: 12/29/2022 Health Maintenance Due Date Last Done Comments [...] Screening 12/11/2023 12/10/2022 Lipid Panel 03/21/2027 03/21/2022, 10/2021, 02/19/2019, Additional [...] as of this encounter Visit Diagnoses Diagnosis Anxiety and depression- Primary Dysthymic disorder documented in this encounter Care Teams Academic Counselor Relationship Specialty Start Date End Date Carlitos Rain MD [address] [phone] PCP - General Family Medicine 02/18/22 documented as of this encounter
--- OUTSIDE RECORDS SUMMARY | 2023-04-16 10:53 | External Medical Summary | Summary of Care ---
Author Name Unknown Organization [facility] Address [address] [place] [address] Phone [phone] Care Team Providers Care Public Information Officer Name Role Phone Carlitos Rain MD Primary Care Provider Reason for Visit * Reason Onset Date Comments Medication Refill 01/11/2023 Encounter Details Date Type Department Care Team (Late st Contact Info) Description 01/11/2023 Refill [facility] [address] [facility] [place] [phone] Caitlin López MD [address] [facility] [place] [address] Allergies Active Allergy Reactions Criticality Noted [...] goal of less than 7.0% ([facility]) Use for injections. Injects trulicity once weekly 100 Each 1 03/26/2022 Active OneTouch Verio In Vitro Strip (Glucose Blood)Indications:Ty pe 2 diabetes mellitus with hemoglobin A1c goal of less than 8.0% (HCC) Use up to 4 times a day E11.9 400 Strip 2 04/29/2022 Active OneTouch Delica Plus [id number] :Type 2 diabetes mellitus with hemoglobin A1c [...] before bedtime. 60 Tablet 5 01/11/2023 Active Topiramate 50 MG Oral Tablet (topAMAX) Take 1 Tablet by mouth in the morning and 1 Tablet before bedtime. 60 Tablet 5 09/20/2022 01/12/20 23 Discontinu ed(Refill) documented as of this encounter (statuses as of 01/11/2023) Active Problems Problem Noted Date Diagnosed Date Generalized osteoarthritis 10/28/2022 Predominant disturbance of emotions 09/23/2022 Food insecurity 08/16/2022 Overview: Per [facility] Protocol Type 2 diabetes mellitus wit [...] yrs 12/10/2022,06/02/2022 Pneumococcal Conjugate Vacci ne, 20-valent ([id number]) 04/14/2022 Pneumococcal Polysaccharide PPV23 (Pneumovax) 07/28/2020 SEASONAL [...] Encounter - America Robles CRNP - 01/11/2023 5:05 PM EST Signed Prescriptions: Disp Refills Topiramate 50 MG Oral Tablet (topAMAX) 60 Tab*5 Sig: Take 1 Tablet by mouth in the morning and 1 Tablet before bedtime. Authorizing Provider: AMERICA ROBLES * Telephone Encounter - Colt Bagley [facility] - 01/11/2023 4:56 PM EST Pending Prescriptions: Disp Refills Topiramate 50 MG Oral Tablet (topAMAX) 60 Tab*5 Sig: Take 1 Tablet by mouth in the morning and 1 Tablet before bedtime. * Telephone Encounter - Colt Bagley [facility] - 01/11/2023 4:56 PM EST [facility] is currently not authorized to approve refills for the pended medication(s) per refill protocol. Please approve if appropriate. Thank you, Serg Bagley, PharmD Clinical Pharmacist Central[facility] Clinical Pharm[facility] Services ([facility]) 01/11/23 4:56 PM [phone] * Telephone Encounter - Kacie Raymond sealant mixer - 01/11/2023 9:09 AM EST Did you pend patient's preferred pharmacy and medication before forwarding?yes Pharmacy: [facility] Pending Prescriptions: Disp Refills Topiramate 50 MG Oral Tablet (topAMAX) 60 Tab*5 Sig: Take 1 Tablet by mouth in the morning and 1 Tablet before bedtime. Last Visit: 12/10/2022 (in office), Visit date not found (telemedicine) Next Visit: 06/14/2023 If no future appointments scheduled, and last appointment is greater than a year ago, please schedule patient for a follow-up appointment Last date the medication was ordered: 8.14.23 Is this request for a controlled substance?No [...] Description 01/25/2023 11:30 AM EST Telemedicine Pharmacy, [place] [address] [address] [facility] [address] [address] 06/14/2023 11:20 AM EDT Office Visit Family [facility] [place] [address] [phone] Carlitos Rain MD [address] [address] 01/09/2024 10:30 AM EST Appointment Radiology, [place] [address] [address] Scheduled Procedures Name Priority Associated Diagnoses Date/Ti [...] filedocumented as of this encounter Care Teams Public Information Officer Relationship Specialty Start Date End Date Carlitos Rain MD 21 [facility] [address] [phone] PCP - General Family Medicine 02/18/22 documented as of this encounter
--- OUTSIDE RECORDS SUMMARY | 2023-04-16 10:54 | External Medical Summary | Summary of Care ---
Author Name Unknown Organization [facility] Address [address] [place] [address] Phone [phone] Care Team Providers Care Litigation Legal Secretary Name Role Phone Carlitos Rain MD Primary Care Provider Reason for Visit * Reason Onset Date Comments medication change 11/25/2022 Encounter Details Date Type Department Care Team Description 11/25/2022 Telephone Pharmacy, [place] [address] [place] [address] [facility] [address] [facility] [place] [address] medication change Allergies Active Allergy Reactions Severity Noted Date Comments Pollen 02/10/2022 documented as of this encounter (statuses as of 11/25/2022) Medications Medication Sig Dispensed Refills Start Date [...] Strip 2 04/29/2022 Active OneTouch Delica Plus [id number] :Type 2 diabetes mellitus with hemoglobin A1c [...] the day. 90 Capsule 1 05/21/2022 Active buPROPion HCl ER (XL) 150 MG [...] before bedtime. 90 Tablet 5 11/05/2022 Active oxyCODONE HCl 5 MG Oral Tablet (Oxy IR)Indications:Acute exacerbation of chronic low back pain Take 1 Tablet by mouth every 6 hours as needed for Pain, Severe. 60 Tablet 0 11/12/2022 Active Pregabalin 75 MG Oral Capsule (Lyrica) Take 1 Capsule by mouth in the morning and 1 Capsule at noon and 1 Capsule before bedtime. 90 Capsule 1 11/25/2022 Active Pregabalin 150 MG Oral Capsule (Lyrica) Take 1 Capsule by mouth in the morning and 1 Capsule before bedtime. Increase over 2 weeks per MTM instructions. 60 Capsule 1 11/12/2022 3 Discontinue d(Medicatio n/Dose Changed) documented as of this encounter (statuses as of 11/25/2022) Active Problems Problem Noted Date Generalized osteoarthritis 10/28/2022 Predominant disturbance of emotions 09/07 Food insecurity 08/16/2022 Overview: Per [facility] Protocol Type 2 diabetes mellitus with hemoglobin A1c goal of less than 7.0% 03/25/2022 BMI 40.0-44.9, adult 02/18/2022 Spinal stenosis of lumbar region with ra diculopathy 02/18/2022 Restless legs syndrome 02/18/2022 Hypertension goal BP (blood pressure) < 140/90 02/18/2022 Gastroesophageal reflux disease 02/18/19 23 Perennial allergic rhinitis 02/18/2022 Chronic diarrhea 02/18/2022 Migraine without status migrainosus, not intractable 02/18/2022 Tobacco use disorder 10/13/2018 Seasonal allergies 06/09/2018 B12 deficiency 06/09/2018 S/P hysterectomy 06/09/2018 Neuralgia and neuritis 06/09/2018 Chronic low back pain with sciatica 04/2018 Other intervertebral disc displacement, lumbosacral region 06/09/2018 Sacroiliitis, not elsewhere classified 0 06/09/2018 Primary osteoarthritis of both knees 04/2018 Chronic pain syndrome 06/09/2018 Cervicalgia 06/09/2018 Lumbosacral radiculopathy 06/09/2018 documented as of this encounter (statuses as of 11/25/2022) Resolved Problems Problem Noted Date Resolved Date Nausea without vomiting 02/18/2022 09/08/19 Migraine without status migrainosus, not intract able 02/18/2022 09/07/2022 Rheumatoid arthritis involvi ng multiple sites with positive rheumatoid factor 02/18/2022 10/28/2022 Acute calculous cholecystitis 01/29/2019 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 10/02/2018 10/13/2018 BMI 45.0-49.9, adult 06/09/2018 03/24/2022 Morbid obesity due to excess calories 06/09/2018 10/02/2018 Hematuria, gross 10/11/2014 06/09/2018 Urgency of urination 10/11/2014 06/09/2018 Urinary frequency 10/11/2014 06/09/2018 documented as of this encounter (statuses as of 11/25/2022) Immunizations Name Administration Dates Next Due Hepatitis B, 20+ yrs 06/02/2022 Pneumococcal Conjugate Vacci ne, 20-valent ([id number]) 04/14/2022 Pneumococcal Polysaccharide PPV23 (Pneumovax) 07/28/2020 SEASONAL [...] = 0.6 oz pur e alcohol) occ Food Insecurity Answer Date Recorded Within the past 12 months, y ou worried that your food would run out before you got money to buy more. Sometimes true 2022 Within the past 12 months, t he food you bought just didn't last and you didn't have money to get more. Sometimes true 06/2022 Sex Assigned at Date Recorded Female 10/13/2018 11:40 AM EDT Job Start Date Occupation Industry Not on file Not on file Not on file documented as of this encounter Miscellaneous Notes * Telephone Encounter - Carlitos Rain MD - 11/25/2022 5:29 PM EDT RX signed. Thank you. * Telephone Encounter - Dixie Lau [facility] - 11/25/2022 3:50 PM EDT Patient was reviewed by Telemedicine visit today Could not tolerate increase to Lyrica to 150 mg BID. Currently back to 75 mg BID but would like to try 75 mg TID Working with Dr Mc's office for acute pain post t-spine surgery, once resolved goal remains opioid wean. Okay to continue at this time Refill for Lyrica changed pended for your review Thank you, Dixie Lau [facility] Clinical [facility]ist [facility] documented in this encounter Plan of Treatment Upcoming Encounters Date Type Specialty Care Team Description 12/03/2022 Office Visit Pain Medicine Benji Champion CRNP [address] [phone] 12/10/2022 Office Visit Family Medicine Ale Fontaine CRNP [address] [address] 12/20/2022 Telemedicine Pharmacy [facility] [address] [address] 12/29/2022 Office Visit Orthopedics Fidencio Montenegro, [address] [place] [address] Scheduled Procedures Name Priority Associated Diagnoses Date/Ti me COLONOSCOPY FLEXIBLE PROXIMA L DIAGNOSTIC Recall Screening for colon cancer Health Maintenance Due Date Last Done Comments DISCUSS TOBACCO CESSATION (REFER TO SMARTSET #8009) 1975 COVID-19 Vaccine (#1) 04/30/1975 Mammogram 06/10/2019 06/09/2018 Hepatitis B (2 of 3 - 19+ 3-dose series) 06/30/2022 06/02/2022 Influenza Vaccine (FLU shot) (#1) 2022 11/17/2021, 11/18/2020, 11/07/2019, Additional history exists Depression, Most Recent Score >= 10 (will fire each visit until score < 10) 10/29/2022 10/28/2022 COLONOSCOPY-ANNUAL AGES 18-100 04/08/2023 04/07/2022, 04/07/2022 HbA1c 05/13/2023 11/11/2022, 05/09, 03/21/2022 Albumin/Creatinine Ratio 06/03/2023 06/02/2022 Diabetic Foot Exam 06/03/2023 06/02/2022 GFR 11/12/2023 11/11/2022, 09/08, 09/19/2022, Additional history exists DIABETES-EYE EXAM 11/23/2023 11/22/2022, 04/07/2022 Lipid Panel 03/21/2027 03/21/2022, 02/0 10/2021, 02/19/2019, Additional history exists DTaP,Tdap,and Td Vaccines (2 - Td or Tdap) 07/28/2030 07/28/2020 Colonoscopy Discontinued 04/07/2022, 04/07/2022 Colorectal Cancer Screening Discontinued Pneumococcal Vaccine: Pediatrics (0 to 5 Years) and At-Risk Patients (6 to 64 Years) Completed 04/14/2022, 07/28/2020 Cologuard Discontinued Fecal Occult Blood Test Discontinued GARDASIL-HPV IMMUNIZATION SERIES Aged Out No longer eligible based on patient's age to complete this topic MENINGOCOCCAL (MENACTRA/MENVEO) Aged Out No longer eligible based on patient's age to complete this topic Sigmoidoscopy Discontinued documented as of this encounter Medical Devices Not on filedocumented as of this encounter Care Teams Litigation Legal Secretary Relationship Specialty Start Date End Date Carlitos Rain MD [address] [facility] [address] [address] PCP - General Family Medicine 02/18/22 documented as of this encounter
--- OUTSIDE RECORDS SUMMARY | 2023-04-16 10:54 | External Medical Summary ---
Author Name Unknown Address Unknown Organization [id number][facility] [place] [address] [place] [address] Laboratory Report Ordering Provider Test Date Status JOLEEN BAUTISTA 11/11/2022 14:17:41 Final Observation Date Value Abnormality Reference (Units ) Status HbA1C 11/11/2022 14:17:41 5.0 4.0-5.6 (% ) Final The use of HbA1c to monitor glycemic status is based on normal hemoglobin and HbA composition. This test should not be used in patients with abnormal hemoglobin that affects the half life of the red blood cell or the in vivo glycation rates. Glucose, estimated average 11/11/2022 14:17:41 97 <126 (mg/dL) Final Performing Location [facility] [place] [address] [place] [address]
--- OUTSIDE RECORDS SUMMARY | 2023-04-16 10:54 | External Medical Summary | Summary of Care ---
Author Name Unknown Organization [facility] Address [address] [place] [address] Phone [phone] Care Team Providers Care Surface Grinding Machine Hand Name Role Phone Carlitos Rain MD Primary Care Provider Reason for Visit * Reason Onset Date Comments Medication Refill 12/09/2022 Encounter Details Date Type Department Care Team (Late st Contact Info) Description 12/09/2022 Refill [facility] [address] [place] [address] Carlitos Rain MD [address] [place] [address] Acute exacerbation of chronic low [...] Strip 2 04/29/2022 Active OneTouch Delica Plus [id number] :Type 2 diabetes mellitus with hemoglobin A1c [...] of less than 7.0% ([facility]) Inject 1.5 mg under the [...] Pain, Severe. 60 Tablet 0 12/10/2022 Active oxyCODONE HCl 5 MG Oral Tablet (Oxy IR)Indications:Acute exacerbation of chronic low back pain Take 1 Tablet by mouth every 6 hours as needed for Pain, Severe. 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 Food insecurity 08/16/2022 Overview: Per [facility] Protocol Type 2 diabetes mellitus wit [...] yrs 06/02/2022 Pneumococcal Conjugate Vacci ne, 20-valent ([id number]) 04/14/2022 Pneumococcal Polysaccharide PPV23 (Pneumovax) 07/28/2020 SEASONAL [...] encounter Miscellaneous Notes * Telephone Encounter - Shantal Fontaine CRNP - 12/10/2022 2:16 PM EDTSigned Prescriptions: Disp Refills oxyCODONE HCl 5 MG Oral Tablet (Oxy IR) 60 Tab*0 Sig: Take 1 Tablet by mouth every 6 hours as needed for Pain, Severe.Authorizing Provider: SHANTAL FONTAINE------- * Telephone Encounter - Sandra Skinner [facility] - 12/10/2022 11:49 AM EDTPending Prescriptions: Disp Refills oxyCODONE HCl 5 MG Oral Tablet (Oxy IR) 60 Tab*0 Sig: Take 1 Tablet by mouth every 6 hours as needed for Pain, Severe. * Telephone Encounter - Sandra Skinner [facility] - 12/10/2022 11:49 AM EDT I have reviewed the patients controlled substance dispensing history in the Prescription Drug Monitoring Program in compliance with the [facility] regulations before prescribing a controlled substance. PDMP checked on 12/10/2022. Pending Prescriptions: Disp Refills oxyCODONE HCl 5 MG Oral Tablet (Oxy IR) 60 Tab*0 Sig: Take 1 Tablet by mouth every 6 hours as needed for Pain, Severe. Last Visit: 10/15/2022 (in office), Visit date not found (telemedicine) Next Visit: 12/10/2022 Date medication was last filled: 11/26/22 Date medication is due for refill: 12/09/22 Pharmacy: [facility] Is this request for a controlled [...] upon request. Please approve if appropriate. Thank You, Sandra Skinner [facility] Clinical Pharmacist Centralized Clinical Pharmacy Services (CCPS) (formerly Telepharmacy) [phone] 12/10/2022, 11:49 AM * Telephone Encounter - Debra Calix PHARM Tech - 12/09/2022 1:42 PM EDT Did you pend patient's preferred pharmacy and medication before forwarding?yes Pharmacy: [facility] Pending Prescriptions: Disp Refills oxyCODONE HCl 5 MG Oral Tablet (Oxy IR) 60 Tab*0 Sig: Take 1 Tablet by mouth every 6 hours as needed for Pain, Severe. Last Visit: 10/15/2022 (in office), Visit date not found (telemedicine) Next Visit: 12/10/2022 If no future appointments scheduled, and last appointment is greater than a year ago, please schedule patient for a follow-up appointment Last date the medication was ordered: 11/26/2022 Is this request for a controlled substance?Yes, What was the last refill date 11/26/2022 w/ quantity 60 and dosage 5mg and Urine Drug Screen was completed Urine [...] Description 12/17/2022 2:30 PM EST Appointment Radiology, [place] [address] 12/20/2022 8:00 AM EST Telemedicine Pharmacy, [place] [address] [place] [address] [facility] [address] [place] [address] 12/29/2022 1:30 PM EST Office Visit Orthopaedics, Kelsie Perez [address] [place] [address] Fidencio Montenegro, DO [address] [place] [address] 06/14/2023 11:20 AM EDT Office Visit [facility] [place] [address] [place] [address] Carlitos Rain MD [...] visit until score < 10) 10/29/2022 10/28/2022 Hepatitis B (3 of 3 - 19+ [...] Lumbago documented in this encounter Care Teams Surface Grinding Machine Hand Relationship Specialty Start Date End Date Carlitos Rain MD [address] [place] [id number] PCP - General Family Medicine 02/18/22 documented as of this encounter
--- OUTSIDE RECORDS SUMMARY | 2023-04-16 10:54 | External Medical Summary | Summary of Care ---
Author Name Unknown Organization [facility] Address [address] [place] [address] Phone [phone] Care Team Providers Care System Sales Consultant Name Role Phone Carlitos Rain MD Primary Care Provider Encounter Details Date Type Department Care Team Description 11/12/2022 Telephone Pharmacy, [facility] [address] [place] [address] Colt King, [facility] [address] [place] [address] Allergies Active Allergy Reactions Severity Noted Date Comments Pollen 02/10/2022 documented as of this encounter (statuses as of 11/12/2022) Medications Medication Sig Dispensed Refills Start Date [...] of less than 8.0% ([facility]) Use up to 4 times a day E11.9 400 Strip 2 04/29/2022 Active OneTouch Delica Plus Rzeazc36AQtlwpwmvksq:T ype 2 diabetes mellitus with hemoglobin A1c [...] 10/06/2022 Active Lisinopril 5 MG Oral Tablet (Prinivil)Indications: Essential (primary) hypertension TAKE 1 TABLET BY MOUTH DAILY 90 Tablet 3 10/06/2022 Active Albuterol Sulfate HFA 108 (90 Base) MCG/ACT Inhalation Aerosol Solution As needed 0 11/09/2021 Active Nicotine 21 MG/24HR Transdermal Patch 24 Hour (Nicoderm CQ) APPLY 1 PATCH DAILY DIRECTED 0 09/04/2022 Active oxyCODONE HCl 5 MG Oral Tablet (Oxy IR)Indications:Acute exacerbation of chronic low back pain Take 1 Tablet by mouth every 6 hours as needed for Pain, Severe. 60 Tablet 0 10/29/2022 Active Pregabalin 75 MG Oral Capsule (Lyrica) Take 1 capsule at bedtime x 3 days, then increase to 1 capsule twice daily until seen again 60 Capsule 1 10/29/2022 Active Dulaglutide 1.5 MG/0.5ML Subcutaneous Solution Pen-injector [...] before bedtime. 90 Tablet 5 11/05/2022 Active documented as of this encounter (statuses as of 11/12/2022) Active Problems Problem Noted Date Generalized osteoarthritis 10/28/2022 Predominant disturbance of emotions 09/07 Food insecurity 08/16/2022 Overview: Per [facility] [...] as of this encounter (statuses as of 11/12/2022) Resolved Problems Problem Noted Date Resolved Date [...] as of this encounter (statuses as of 11/12/2022) Immunizations Name Administration Dates Next Due Hepatitis B, 20+ yrs 06/02/2022 Pneumococcal Conjugate Vacci ne, 20-valent ([id number]) 04/14/2022 Pneumococcal Polysaccharide PPV23 (Pneumovax) 07/28/2020 SEASONAL [...] encounter Miscellaneous Notes * Telephone Encounter - Colt King RPh - 11/12/2022 7:54 AM EDT Patient Phone Numbers Hemoglobin AIC Results: Lab Results Component Value Date/Time HEMOGLOBIN A1C - [facility] 5.0 11/11/2022 02:17 PM HEMOGLOBIN A1C - [facility] 5.2 06/02/2022 10:28 AM This patient has met their goal HgA1C and has been graduated from the [facility] Diabetes Management Program effective today. Eb BarberD, [facility] Clinical Pharmacist 11/12/2022, 7:55 AM documented in this encounter Plan of Treatment Upcoming Encounters Date Type Specialty Care Team Description 11/12/2022 Telemedicine Pharmacy [facility] [address] [place] [address] 12/03/2022 Office Visit Pain Medicine Benji Champion CRNP [address] [place] [address] [place] [address] 12/10/2022 Office Visit Family Medicine Ale Fontaine CRNP [address] [place] [address] Scheduled Procedures Name Priority Associated Diagnoses Date/Ti me COLONOSCOPY FLEXIBLE PROXIMA L DIAGNOSTIC Recall Screening for colon cancer Health Maintenance Due Date Last Done Comments DISCUSS TOBACCO CESSATION (REFER TO SMARTSET #4811) 1974 COVID-19 Vaccine (#1) 04/30/1975 Mammogram 06/10/2019 06/09/2018 Hepatitis B (2 of 3 - 19+ 3-dose series) 06/30/2022 06/02/2022 Influenza Vaccine (FLU shot) (#1) 2022 11/17/2021, 11/18/2020, 11/07/2019, Additional history exists Depression, Most Recent Score >= 10 (will fire each visit until score < 10) 10/29/2022 10/28/2022 COLONOSCOPY-ANNUAL AGES 18-100 04/08/2023 04/07/2022, 04/07/2022 DIABETES-EYE EXAM 04/08/2023 04/07/2022 HbA1c 05/13/2023 11/11/2022, 05/09, 03/21/2022 Albumin/Creatinine Ratio 06/03/2023 06/02/2022 Diabetic Foot Exam 06/03/2023 06/02/2022 GFR 11/12/2023 11/11/2022, 09/08, 09/19/2022, Additional history exists Lipid Panel 03/21/2027 03/21/2022, 0210/2021, 02/19/2019, Additional [...] hemoglobin A1c goal of less than 7.0% (HCC)- Primary documented in this encounter Care Teams System Sales Consultant Relationship Specialty Start Date End Date Carlitos Rain MD 21 [facility] [place] [address] PCP - General Family Medicine 02/18/22 documented as of this encounter
--- OUTSIDE RECORDS SUMMARY | 2023-04-16 10:54 | External Medical Summary | Summary of Care ---
Author Name Unknown Organization [facility] Address [address] [place] [address] Phone [phone] Care Team Providers Care Changer Fixer Name Role Phone Carlitos Rain MD Primary Care Provider Reason for Visit * Reason Comments Dosage Adjustment In Person (Anticoag Cl inic) Diabetes Management Encounter Details Date Type Department Care Team Description 11/11[facility]2022 [facility] [facility] [place] [address] [facility] [address] [place] [address] Type 2 diabetes mellitus with hemoglobin A1c goal of less than 7.0% ([facility])* Allergies Active Allergy Reactions Severity Noted Date Comments Pollen 02/10/2022 documented as of this encounter (statuses as of 11/11/2022) Medications Medication Sig Dispensed Refills Start Date [...] Strip 2 04/29/2022 Active OneTouch Delica Plus [id number]:T ype 2 diabetes mellitus with hemoglobin A1c [...] than 7.0% ([facility]) Inject 1.5 mg under the skin once [...] as of this encounter (statuses as of 11/11/2022) Active Problems Problem Noted Date Generalized osteoarthritis 10/28/2022 Predominant disturbance of emotions 09/07 Food insecurity 08/16/2022 Overview: Per [facility] Protocol Type 2 diabetes mellitus [...] as of this encounter (statuses as of 11/11/2022) Resolved Problems Problem Noted Date Resolved Date [...] as of this encounter (statuses as of 11/11/2022) Immunizations Name Administration Dates Next Due Hepatitis B, 20+ yrs 06/02/2022 Pneumococcal Conjugate Vacci ne, 20-valent ([id number]) 04/14/2022 Pneumococcal Polysaccharide PPV23 (Pneumovax) 07/28/2020 SEASONAL [...] as of this encounter Progress Notes * Colt King, [facility] - 11/11/2022 1:39 PM EDT Medication Therapy Disease Management [facility] - Diabetes Management Progress Note Caren Johnson, identified by name and date of , is a 47 year old female being seen for diabetes management/education. Patient presents for return diabetic visit. DIABETES: Current diabetic medications: Metformin ER 500mg once daily INC: Trulicity 1.5mg once weekly. Medication Injection Site: Abdomen Lifestyle: Diet: improved Glucose Review/SMBG: Readings per patient memory/recall: Patient is currently testing 1 times a day Hypoglycemia: Does your blood sugar go below 70 mg/dL? No Hyperglycemia symptoms present: none Recent Labs Units 06/02/22 1028 03/21/22 0601 HEMOGLOBIN A1C - [facility] % 5.2 -- HEMOGLOBIN, [id number] LAB % -- 6.0 Recent Labs Units 09/29/22 1053 09/19/22 0807 08/24/22 2223 ESTIMATED GLOMERULAR FILTRATION RATE - [facility] mL/min >90 85 72 CREATININE - [facility] mg/dL 0.8 0.9 1.0 HYPERTENSION: Patient on ACEi/ARB: yes BP Readings from Last 3 Encounters: 11/08/22 110/70 10/15/22 138/88 09/29/22 124/74 Blood pressure at goal: yes HYPERLIPIDEMIA: Patient is taking moderate or high intensity statin: yes HEALTH MAINTENANCE REVIEW: Health Maintenance Due Topic Date Due DISCUSS TOBACCO CESSATION (REFER TO SMARTSET #3074) Never done COVID-19 Vaccine (1) Never done Mammogram 06/10/2019 Hepatitis B (2 of 3 - 19+ 3-dose series) 06/30/2022 Influenza Vaccine (FLU shot) (1) 10/08/2022 Depression, Most Recent Score >= 10 (will fire each visit until score < 10) 10/29/2022 HbA1c 12/02/2022 ASSESSMENT & PLAN: ICD-10-CM 1. Type 2 diabetes mellitus with hemoglobin A1c goal of less than 7.0% ([facility]) E11.9 BG Readings - Blood sugars controlled. A1c ordered for today. BG averaging in the 90-100 range per patient. Medications - Reviewed current regimen, patient is adherent to regimen. No changes at this time. Diet, Exercise, Lifestyle - No significant lifestyle changes since last visit. Patient is agreeable to SMBG 1 time(s) daily. Patient aware to contact clinic if any hypoglycemia before next visit. MEDICATION CHANGES: no change Diabetic Medications: Metformin ER 500mg once daily Trulicity 1.5mg once weekly. HEALTH MAINTENANCE INTERVENTIONS: Labs: Ordered & Scheduled: HgA1c and BMP/CMP Immunizations: Due Foot Exam: Up to Date Eye Exam: Up to Date Annual Wellness Visit: N/A FOLLOW UP: Return to clinic in TBD, pending A1c may discharge patient tomorrow. Visit date not found Colt King RPh Clinical Pharmacist - Instructional Support Assistant Medication Therapy Management Clinic 11/11/2022, 1:39 PM documented in this encounter Plan of Treatment Upcoming Encounters Date Type Specialty Care Team Description 11/11/2022 Laboratory Laboratory [facility] [address] [place] [address] Type 2 diabetes mellitus with hemoglobin A1c goal of less than 7.0% ([facility]) 11/12/2022 Telemedicine Pharmacy [facility] [address] [place] [address] 12/03/2022 Office Visit Pain Medicine Benji Champion CRNP [address] [place] [address] 12/10/2022 Office Visit Family Medicine Ale Fontaine CRNP [address] [place] [address] Pending Results Name Type Priority Associated Diagnoses Date /Time HEMOGLOBIN A1C Lab Routine Type 2 diabetes mellitus with hemoglobin A1c goal of less than 7.0% (HCC) 11/11/2022 2:17 PM EDT BASIC METABOLIC PANEL Lab Routine Type 2 diabetes mellitus with hemoglobin A1c goal of less than 7.0% (HCC) 11/11/2022 2:17 PM EDT Scheduled Orders Name Type Priority Associated Diagnoses Orde r Schedule HEMOGLOBIN A1C Lab Routine Type 2 diabetes mellitus with hemoglobin A1c goal of less than 7.0% (HCC) Expected: 11/11/2022 (Approximate), Expires: 11/12/2023 BASIC METABOLIC PANEL Lab Routine Type 2 diabetes mellitus with hemoglobin A1c goal of less than 7.0% (HCC) Expected: 11/11/2022 (Approximate), Expires: 11/12/2023 Scheduled Procedures Name Priority Associated Diagnoses Date/Ti [...] visit until score < 10) 10/29/2022 10/28/2022 HbA1c 12/02/2022 06/02/2022, 03/21/2022 COLONOSCOPY-ANNUAL AGES 18-100 04/08/2023 04/07/2022, 04/07/2022 DIABETES-EYE EXAM 04/08/2023 04/07/2022 Albumin/Creatinine Ratio 06/03/2023 06/02/2022 Diabetic Foot Exam 06/03/2023 06/02/2022 GFR 09/30/2023 09/29/2022, 0804/2022, 08/24/2022, Additional history exists Lipid Panel 03/21/2027 03/21/2022, 02/0 10/2021, 02/19/2019, [...] goal of less than 7.0% (HCC)- Primary Type 2 diabetes mellitus with hemoglobin A1c goal of less than 7.0% (HCC) documented in this encounter Care Teams Changer Fixer Relationship Specialty Start Date End Date Carlitos Rain MD 21 [facility] [place] [address] PCP - General Family Medicine 02/18/22 documented as of this encounter
--- OUTSIDE RECORDS SUMMARY | 2023-04-16 10:54 | External Medical Summary | Summary of Care ---
Author Name Unknown Organization [facility] Address [address] [place] [address] Phone [phone] Care Team Providers Care Hog Killer Name Role Phone Carlitos Rain MD Primary Care Provider Reason for Visit * Reason Onset Date Comments Med Request 11/26/2022 Encounter Details Date Type Department Care Team (Late st Contact Info) Description 11/26/[address] [facility] [place] [address] Carlitos Rain MD [address] [place] [address] Med Request Allergies Active Allergy Reactions Criticality Noted Date Comments Pollen 02/10/2022 documented as of this encounter (statuses as of 11/29/2022) Medications Medication Sig Dispensed Refills Start Date [...] Strip 2 04/29/2022 Active OneTouch Delica Plus [id number]:T ype 2 diabetes mellitus with hemoglobin A1c [...] 7.0% ([facility]) Inject 1.5 mg under the skin once [...] the first main meal of the day. 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 Food insecurity 08/16/2022 Overview: Per [facility] Protocol Type 2 diabetes mellitus [...] as of this encounter (statuses as of 11/29/2022) Resolved Problems Problem Noted Date Diagnosed Date [...] as of this encounter (statuses as of 11/29/2022) Immunizations Name Administration Dates Next Due Hepatitis B, 20+ yrs 06/02/2022 Pneumococcal Conjugate Vacci ne, 20-valent ([id number]) 04/14/2022 Pneumococcal Polysaccharide PPV23 (Pneumovax) 07/28/2020 SEASONAL [...] encounter Miscellaneous Notes * Addendum Note - Maty Tolentino LPN - 11/29/2022 11:13 AM EDTAddended by: MATY TOLENTINO on: 11/29/2022 11:13 AM Modules accepted: Orders * Telephone Encounter - Maty Tolentino LPN - 11/29/2022 11:11 AM EDT Pt now needs refill on Nexium, 3 mo supply; med pending * Telephone Encounter - Maty Tolentino LPN - 11/29/2022 11:10 AM EDT Pt informed * Telephone Encounter - Pily Franco CPhT - 11/27/2022 10:11 AM EDT Consulted with [facility] Pt calling to request short supply for Nexium until mail order arrives. Please review and approve if appropriate. Pending Prescriptions: Disp Refills Esomeprazole Magnesium 40 MG Oral Capsule*10 Cap*0 Sig: Take 1 Capsule by mouth daily. 30-60 min prior to the first main meal of the day. Last Visit: 10/15/2022 (in office), Visit date not found (telemedicine) 12/10/2022 Thank you, Pily Franco Property Claim Rep Centralized Clinical Pharmacy Services (CCPS) (Formerly Telepharmacy) 11/27/2022,10:15 AM * Telephone Encounter - JEFERSON Hill - 11/27/2022 10:06 AM EDT Patient still has not got Esomeprazole, Nexium, that was requested 2 days ago. Call was transferred to Pharmacy Dept. * Telephone Encounter - Rehana Mukherjee [facility] - 11/26/2022 11:13 AM EDT Did you pend patient's preferred pharmacy and medication before forwarding?yes Pharmacy: [id number] [place] [address] Pending Prescriptions: Disp Refills Esomeprazole Magnesium 40 MG Oral Capsule*90 Cap*1 Sig: Take 1 Capsule by mouth daily. 30-60 min prior to the first main meal of the day. Last Visit: 10/15/2022 (in office), Visit date not found (telemedicine) Next Visit: 12/10/2022 If no future appointments scheduled, and last appointment is greater than a year ago, please schedule patient for a follow-up appointment Last date the medication was ordered: 05/21/22, pt walked in requesting med refill. Pt has been out of med x 2 days and pt having heartburn. Is this request for a controlled substance?No [...] Care Team (Late st Contact Info) Description 12/03/2022 2:00 PM EDT Office Visit [facility] [address] [place] [address] [facility] [place] [address] 12/10/2022 12:20 PM EDT Office Visit [address] [place] [phone] Ale Fontaine CRNP [address] [place] [address] 12/20/2022 8:00 AM EST Telemedicine Pharmacy, [place] [address] [place] [address] [facility] [address] [facility] [place] [address] 12/29/2022 1:30 PM EST Office Visit Orthopaedics, [address], [place] [address] [place] [address] Fidencio Montenegro, [address] [place] [address] Scheduled Procedures Name Priority Associated Diagnoses Date/Ti [...] 11/23/2023 11/22/2022, 04/07/2022 Lipid Panel 03/21/2027 03/21/2022, 0210/2021, 02/19/2019, Additional [...] whether esophagitis present documented in this encounter Care Teams Hog Killer Relationship Specialty Start Date End Date Carlitos Rain MD [address] [place] [address] PCP - General Family Medicine 02/18/22 documented as of this encounter
--- OUTSIDE RECORDS SUMMARY | 2023-04-16 10:54 | External Medical Summary | Summary of Care ---
Author Name Unknown Organization [facility] Address [address] [place] [address] Phone [phone] Care Team Providers Care Customs Investigator Name Role Phone Carlitos Rain MD Primary Care Provider Encounter Details Date Type Department Care Team Description 11/12/2022 Telephone Pharmacy, [facility] [address] [place] [address] Colt King, [facility] [address] [place] [address] Allergies Active Allergy Reactions Severity Noted Date [...] than 8.0% ([facility]) Use up to 4 times a day E11.9 400 Strip 2 04/29/2022 Active OneTouch Delica Plus Pajlgd74JBifwpmnluvq:T ype 2 diabetes mellitus with hemoglobin A1c [...] yrs 06/02/2022 Pneumococcal Conjugate Vacci ne, 20-valent ([id number]) 04/14/2022 Pneumococcal Polysaccharide PPV23 (Pneumovax) 07/28/2020 SEASONAL [...] HgA1C and has been graduated from the [facility] Diabetes Management Program effective today. Eb BarberD, [facility] Clinical Pharmacist 11/12/2022, 7:55 AM documented in this encounter Plan of Treatment Upcoming Encounters Date Type Specialty Care Team Description 11/12/2022 Telemedicine Pharmacy [facility] [address] [place] [address] 12/03/2022 Office Visit Pain Medicine Benji Champion CRNP [address] [place] [address] [place] [address] 12/10/2022 Office Visit Family Medicine Ale Fontaine CRNP [address] [place] [address] Scheduled Procedures Name Priority Associated Diagnoses Date/Ti me COLONOSCOPY FLEXIBLE PROXIMA L DIAGNOSTIC Recall Screening for colon cancer Health Maintenance Due Date Last Done Comments DISCUSS TOBACCO CESSATION (REFER TO SMARTSET #2281) 1975 COVID-19 Vaccine (#1) 04/30/1975 Mammogram 06/10/2019 [...] Primary documented in this encounter Care Teams Customs Investigator Relationship Specialty Start Date End Date Carlitos Rain MD 21 [facility] [place] [address] PCP - General Family Medicine 02/18/22 documented as of this encounter
--- OUTSIDE RECORDS SUMMARY | 2023-04-16 10:54 | External Medical Summary | Summary of Care ---
Author Name Unknown Organization [facility] Address [address] [place] [address] Phone [phone] Care Team Providers Care Portrait Painter Name Role Phone Carlitos Rain MD Primary Care Provider Reason for Visit * Reason Onset Date Comments Med Request 11/26/2022 Encounter Details Date Type Department Care Team Description 11/26/2022 Telephone [facility] [address] [place] [address] Carlitos Rain MD [address] [facility] [address] Med Request Allergies Active Allergy Reactions Severity Noted Date Comments Pollen 02/10/2022 documented as of this encounter (statuses as of 11/27/2022) Medications Medication Sig Dispensed Refills Start Date End Date Status cetirizine (ZYRTEC) 10 MG TabletIndications:Seas onal allergies Take 1 Tab by mouth daily. 90 Tab 3 06/09/2018 Active Montelukast Sodium 10 MG Oral Tablet Take by mouth daily. 0 01/07/2021 Active Alcohol Prep Pads 70 % PadIndications:Type 2 diabetes mellitus with hemoglobin A1c goal of less than 7.0% ([facility]) Use for injections. Injects trulicity once weekly 100 Each 1 03/26/2022 Active OneTouch Verio In Vitro Strip (Glucose Blood)Indications:Type 2 diabetes mellitus with hemoglobin A1c goal of less than 8.0% ([facility]) Use up to 4 times a day E11.9 400 Strip 2 04/29/2022 Active OneTouch Delica Plus [id number]:T ype 2 diabetes mellitus with hemoglobin A1c [...] goal of less than 8.0% ([facility]) Take 1 Tablet by mouth in the [...] as of this encounter (statuses as of 11/27/2022) Active Problems Problem Noted Date Generalized osteoarthritis [...] as of this encounter (statuses as of 11/27/2022) Resolved Problems Problem Noted Date Resolved Date Nausea without vomiting 02/18/2022 09/08/19 Migraine without status migrainosus, not intract able 02/18/2022 09/07/2022 Rheumatoid arthritis involvi ng multiple sites with positive rheumatoid factor 02/18/2022 10/28/2022 Acute calculous cholecystitis 01/29/2019 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 10/02/2018 10/13/2018 BMI 45.0-49.9, adult 06/09/2018 03/24/2022 Morbid obesity due to excess calories 06/09/2018 10/02/2018 Hematuria, gross 10/11/2014 06/09/2018 Urgency of urination 10/11/2014 06/09/2018 Urinary frequency 10/11/2014 06/09/2018 documented as of this encounter (statuses as of 11/27/2022) Immunizations Name Administration Dates Next Due Hepatitis B, 20+ yrs 06/02/2022 Pneumococcal Conjugate Vacci ne, 20-valent ([id number]) 04/14/2022 Pneumococcal Polysaccharide PPV23 (Pneumovax) 07/28/2020 SEASONAL [...] encounter Miscellaneous Notes * Telephone Encounter - Pily Franco CPhT - 11/27/2022 10:11 AM EDT Consulted with [facility] Pt calling to request short supply for Nexium until mail order arrives. Please review and approve if appropriate. Pending Prescriptions: Disp Refills Esomeprazole Magnesium 40 MG Oral Capsule*10 Cap*0 Sig: Take 1 Capsule by mouth daily. 30-60 min prior to the first main meal of the day. Last Visit: 10/15/2022 (in office), Visit date not found (telemedicine) 12/10/2022 Thank you, Pily Franco Rn Or Lpn [facility] ([facility]) (Formerly Telepharmacy) 11/27/2022,10:15 AM * Telephone Encounter - JEFERSON Hill - 11/27/2022 10:06 AM EDT Patient still has not got Esomeprazole, Nexium, that was requested 2 days ago. Call was transferred to Pharmacy Dept. * Telephone Encounter - JATINDER Hi - 11/26/2022 11:13 AM EDT Did you pend patient's preferred pharmacy and medication before forwarding?yes Pharmacy: [facility] [address] [place] [address] JOHNNY LY Pending Prescriptions: Disp Refills Esomeprazole Magnesium 40 [...] is available upon request. Patient Phone Numbers Sur[employer]ace [phone] Labs: Lab Results Component Value Date/Time CREAT [...] Visit Pain Medicine Benji Champion CRNP [address] [facility] [place] [address] 12/10/2022 Office Visit Family Medicine Ale Fontaine CRNP [address] [facility] [place] [id number] 12/20/2022 Telemedicine Pharmacy [facility] [place] [address] 12/29/2022 Office Visit Orthopedics Fidencio Montenegro, [address] [place] [address] Scheduled Procedures Name Priority Associated Diagnoses Date/Ti me COLONOSCOPY FLEXIBLE PROXIMA L DIAGNOSTIC Recall Screening for colon cancer Health Maintenance Due Date Last Done Comments DISCUSS TOBACCO CESSATION (REFER TO SMARTSET #6750) 1974 COVID-19 Vaccine (#1) 04/30/1975 Mammogram 06/10/2019 [...] present documented in this encounter Care Teams Portrait Painter Relationship Specialty Start Date End Date Carlitos Rain MD [address] [facility] [place] [id number] PCP - General Family Medicine 02/18/22 documented as of this encounter
--- OUTSIDE RECORDS SUMMARY | 2023-04-16 10:54 | External Medical Summary | Summary of Care ---
Author Name Unknown Organization [facility] Address [address] [facility] [address] Phone [phone] Care Team Providers Care Vacuum Forming Machine Operator Name Role Phone Carlitos Rain MD Primary Care Provider Encounter Details Date Type Department Care Team Description 10/19/2022 Telephone Orthopaedics Spine Surgery, Kelsie Perez [address] [place] [address] Omega Trammell MD [address] [place] [id number] Allergies Active Allergy Reactions Severity Noted Date Comments Pollen 02/10/2022 documented as of this encounter (statuses as of 11/15/2022) Medications Medication Sig Dispensed Refills Start Date [...] hemoglobin A1c goal of less than 8.0% ([facility]) Use up to 4 times a day E11.9 400 Strip 2 04/29/2022 Active OneTouch Delica Plus [id number]: Type 2 diabetes mellitus with hemoglobin A1c [...] MOUTH DAILY 90 Tablet 3 10/06/2022 Active documented as of this encounter (statuses as of 11/15/2022) Active Problems Problem Noted Date Generalized osteoarthritis [...] as of this encounter (statuses as of 11/15/2022) Resolved Problems Problem Noted Date Resolved Date Nausea without vomiting 02/18/2022 09/08/19 23 Migraine without status migrainosus, not intract able [...] as of this encounter (statuses as of 11/15/2022) Immunizations Name Administration Dates Next Due Hepatitis B, 20+ yrs 06/02/2022 Pneumococcal Conjugate Vacci ne, 20-valent ([id number]) 04/14/2022 Pneumococcal Polysaccharide PPV23 (Pneumovax) 07/28/2020 SEASONAL [...] encounter Miscellaneous Notes * Telephone Encounter - Lila Jessica García, MANDO - 10/19/2022 3:03 PM EDT New Referring physician:Carlitos Rain Here for 2nd opinion, previous surgeries with Dr. Mc, not really seeking additional surgery. HPI: Neck or Back - If both what is severe:low back Which side extremity: both legs, right is the worst Injury and date:no Onset, progress and duration: severe pain the last 2 weeks Balance problems:cane Bladder or bowel disturbances:some constipation at times Hand dominance for cervical and hand function: Workman compensation/ Litigation/ Wildlife Officer: Spine investigations done and date: Xray: MRI: CT scan: EMG/ NCV: Spine treatment so far: Medications: NSAIDS/ Gabapentin/ Muscle relaxants/ Narcotics / Oral steroids - Mederol/ Prednisone Physical therapy within last year: Chiropractor therapy: Brace use: Pain management and Spinal epidural injections: Spine surgery - Surgeon and year:T10-T11 laminectomy, previous T8 laminectomy, L1-5 fusion, all surgeries with Dr. 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 Plan of Treatment Upcoming Encounters Date Type Specialty Care Team Description 11/25/2022 Telemedicine Pharmacy [facility] [address] [place] [id number] 12/03/2022 Office Visit Pain Medicine Benji Champion CRNP [address] [facility] [place] [id number] 12/10/2022 Office Visit Family Medicine Ale Fontaine CRNP [address] [place] [address] Scheduled Procedures Name Priority Associated Diagnoses Date/Ti me COLONOSCOPY FLEXIBLE PROXIMA L DIAGNOSTIC Recall Screening for colon cancer Health Maintenance Due Date Last Done Comments DISCUSS TOBACCO CESSATION (REFER TO SMARTSET #1352) 1975 COVID-19 Vaccine (#1) 04/30/1975 Mammogram 06/10/2019 [...] filedocumented as of this encounter Care Teams Vacuum Forming Machine Operator Relationship Specialty Start Date End Date Carlitos Rain MD 21 [facility] [place] [address] PCP - General Family Medicine 02/18/22 documented as of this encounter
--- OUTSIDE RECORDS SUMMARY | 2023-04-16 10:54 | External Medical Summary | Summary of Care ---
Author Name Unknown Organization [facility] Address [address] [place] [address] Phone [phone] Care Team Providers Care Energy And Conservation Technician Name Role Phone Adelina Rain MD Primary Care Provider Reason for Visit * Reason Onset Date Comments Med Request 11/26/2022 Encounter Details Date Type Department Care Team (Late st Contact Info) Description 11/26/[address] [facility] [address] [employer] [address] Adelina Rain MD 21 [place] [address] Med Request Allergies Active Allergy [...] A1c goal of less than 7.0% ([facility]) Use for injections. Injects trulicity once weekly 100 Each 1 03/26/2022 Active OneTouch Verio In Vitro Strip (Glucose Blood)Indications:Ty pe 2 diabetes mellitus with hemoglobin A1c goal of less than 8.0% ([facility]) Use up to 4 times a day E11.9 400 Strip 2 04/29/2022 Active OneTouch Delica Plus [id number] :Type 2 diabetes mellitus with hemoglobin A1c [...] A1c goal of less than 7.0% ([facility]) Inject 1.5 mg under the skin [...] the day. 90 Capsule 1 11/29/2022 Active Esomeprazole Magnesium 40 MG Oral Capsule Delayed Release (NexIUM)Indications: Gastroesophageal reflux disease, unspecified whether esophagitis present Take 1 Capsule by mouth daily. 30-60 min prior to the first main meal of the day. 10 Capsule 0 11/27/2022 3 Discontinue d(Refill) documented as of this encounter (statuses as [...] yrs 06/02/2022 Pneumococcal Conjugate Vacci ne, 20-valent ([id number]) 04/14/2022 Pneumococcal Polysaccharide PPV23 (Pneumovax) 07/28/2020 SEASONAL [...] encounter Miscellaneous Notes * Addendum Note - Adelina Rain MD - 11/29/2022 12:02 PM EDTAddended by: ADELINA RAIN on: 11/29/2022 12:02 PM Modules accepted: Orders * Telephone Encounter - Adelina Rain MD - 11/29/2022 12:02 PM EDT RX signed. * Addendum Note - Maty Tolentino LPN [...] - 11/27/2022 10:11 AM EDT Consulted with [facility] Pt calling to request short supply for Nexium until mail order arrives. Please review and approve if appropriate. Pending Prescriptions: Disp Refills Esomeprazole Magnesium 40 MG Oral Capsule*10 Cap*0 Sig: Take 1 Capsule by mouth daily. 30-60 min prior to the first main meal of the day. Last Visit: 10/15/2022 (in office), Visit date not found (telemedicine) 12/10/2022 Thank you, Pily Franco Senior Manager [facility] ([facility]PS) (Formerly Telepharmacy) 11/27/2022,10:15 AM * Telephone Encounter - JEFERSON Hill - 11/27/2022 10:06 AM EDT Patient still has not got Esomeprazole, Nexium, that was requested 2 days ago. Call was transferred to Pharmacy Dept. * Telephone Encounter - JATINDER Hi - 11/26/2022 11:13 AM EDT Did you pend patient's preferred pharmacy and medication before forwarding?yes Pharmacy: [facility] [id number] [place] [address] Pending Prescriptions: Disp Refills Esomeprazole Magnesium 40 [...] is available upon request. Patient Phone Numbers mobile [phone] Labs: Lab Results Component Value Date/Time CREAT [...] PM EDT Office Visit [facility] [place] [address] [facility] [address] 12/10/2022 12:20 PM EDT Office Visit Family [facility] [address] [place] [phone] [facility] [place] [address] 12/20/2022 8:00 AM EST Telemedicine Pharmacy, [place] [address] [place] [address] [facility] [address] [place] [address] 12/29/2022 1:30 PM EST [facility] [address] [place] [address] Fidencio Montenegro, DO [address] [place] [address] Scheduled Procedures Name Priority Associated Diagnoses Date/Ti me COLONOSCOPY FLEXIBLE PROXIMA L DIAGNOSTIC Recall Screening for colon cancer Health Maintenance Due Date Last Done Comments DISCUSS TOBACCO CESSATION (REFER TO SMARTSET #9601) 1974 COVID-19 Vaccine (#1) 04/30/1975 Mammogram 06/10/2019 [...] present documented in this encounter Care Teams Energy And Conservation Technician Relationship Specialty Start Date End Date Adelina Rain MD [address] [place] [phone] PCP - General Family Medicine 02/18/22 documented as of this encounter
--- OUTSIDE RECORDS SUMMARY | 2023-04-16 10:54 | External Medical Summary | Summary of Care ---
Author Name Unknown Organization [facility] Address [address] [place] [address] Phone [phone] Care Team Providers Care Stopper Maker Helper Name Role Phone Carlitos Rain MD Primary Care Provider Reason for Visit * Reason Onset Date Comments Medication Question 11/26/2022 Encounter Details Date Type Department Care Team Description 11/26/2022 Telephone Pharmacy Call Center [address] [place] [address] [place], [facility] [address] [facility] [place] [address] Medication Question Allergies Active Allergy Reactions Severity Noted Date Comments Pollen 02/10/2022 documented as of this encounter (statuses as of 11/26/2022) Medications Medication Sig Dispensed Refills Start Date End Date Status cetirizine (ZYRTEC) 10 MG TabletIndications:Se asonal allergies Take 1 Tab by mouth daily. 90 Tab 3 06/09/2018 Active Montelukast Sodium 10 MG Oral Tablet Take by mouth daily. 0 01/07/2021 Active Alcohol Prep Pads 70 % PadIndications:Type 2 diabetes mellitus with hemoglobin A1c goal of less than 7.0% ([facility]) Use for injections. Injects trulicity once weekly 100 Each 1 03/26/2022 Active OneTouch Verio In Vitro Strip (Glucose Blood)Indications:Ty pe 2 diabetes mellitus with hemoglobin A1c goal of less than 8.0% ([facility]) Use up to 4 times a day E11.9 400 Strip 2 04/29/2022 Active OneTouch Delica Plus [id number] :Type 2 diabetes mellitus with hemoglobin A1c goal of less than 8.0% ([facility]) Up to 4 times a [...] goal of less than 8.0% ([facility]) Take 1 Tablet by mouth [...] goal of less than 7.0% ([facility]) Inject 1.5 mg under the [...] before bedtime. 90 Capsule 1 11/25/2022 Active oxyCODONE HCl 5 MG Oral Tablet (Oxy IR)Indications:Acute exacerbation of chronic low back pain Take 1 Tablet by mouth every 6 hours as needed for Pain, Severe. 60 Tablet 0 11/26/2022 Active oxyCODONE HCl 5 MG Oral Tablet (Oxy IR)Indications:Acute exacerbation of chronic low back pain Take 1 Tablet by mouth every 6 hours as needed for Pain, Severe. 60 Tablet 0 11/12/2022 3 Discontinue d(Refill) documented as of this encounter (statuses as of 11/26/2022) Active Problems Problem Noted Date Generalized osteoarthritis 10/28/2022 Predominant disturbance of emotions 09/07 Food insecurity 08/16/2022 Overview: Per [facility] Protocol Type 2 diabetes mellitus [...] as of this encounter (statuses as of 11/26/2022) Resolved Problems Problem Noted Date Resolved Date [...] as of this encounter (statuses as of 11/26/2022) Immunizations Name Administration Dates Next Due Hepatitis B, 20+ yrs 06/02/2022 Pneumococcal Conjugate Vacci ne, 20-valent ([id number]) 04/14/2022 Pneumococcal Polysaccharide PPV23 (Pneumovax) 07/28/2020 SEASONAL [...] Telephone Encounter - Carlitos Rain MD - 11/26/2022 12:28 PM EDT Running this by you just to be sure. * Telephone Encounter - Colt King [facility] - 11/26/2022 9:26 AM EDT I have reviewed the patients controlled substance dispensing history in the Prescription Drug Monitoring Program in compliance with the [facility] regulations before prescribing a controlled substance. PDMP checked on 11/26/2022. Pending Prescriptions: Disp Refills oxyCODONE HCl 5 MG Oral Tablet (Oxy IR) 60 Tab*0 Sig: Take 1 Tablet by mouth every 6 hours as needed for Pain, Severe. Last Visit: Visit date not found (in office), Visit date not found (telemedicine) Next Visit: Visit date not found Date medication was last filled: 11/12/22 Date medication is due for refill: 11/27/22 Pharmacy: [facility] Is this request for a controlled [...] available upon request. Please approve if appropriate. Colt King PharmD, [facility] Clinical Pharmacist 11/26/2022, 9:27 AM * Telephone Encounter - CARIDAD Moncada - 11/26/2022 8:51 AM EDT Caller's name: Caren Preferred call back number(OFFICE NUMBER FOR ): [phone] Reason for call: Pt stating her Oxy did not get refilled, on 11/25/22. Pt uses [facility] call pt to discuss. Ruth Solano [facility] ([facility]PS) (Formerly Telepharmacy) 11/26/2022, 8:51 AM documented in this encounter Plan of Treatment Upcoming Encounters Date Type Specialty Care Team Description 12/03/2022 Office Visit Pain Medicine Benji Champion CRNP [address] [place] [address] 12/10/2022 Office Visit Family Medicine Ale Fontaine CRNP [address] [facility] [place] [address] 12/20/2022 Telemedicine Pharmacy [facility] [address] [place] [address] 12/29/2022 Office Visit Orthopedics Fidencio Montenegro, [address] [place] [address] Scheduled Procedures Name Priority Associated Diagnoses Date/Ti me COLONOSCOPY FLEXIBLE PROXIMA L DIAGNOSTIC Recall Screening for colon cancer Health Maintenance Due Date Last Done Comments DISCUSS TOBACCO CESSATION (REFER TO SMARTSET #0482) 1974 COVID-19 Vaccine (#1) 04/30/1975 Mammogram 06/10/2019 [...] 11/23/2023 11/22/2022, 04/07/2022 Lipid Panel 03/21/2027 03/21/2022, 02/10/2021, 02/19/2019, Additional [...] Lumbago documented in this encounter Care Teams Stopper Maker Helper Relationship Specialty Start Date End Date Carlitos Rain MD [address] [place] [phone] PCP - General Family Medicine 02/18/22 documented as of this encounter
--- OUTSIDE RECORDS SUMMARY | 2023-04-16 10:54 | External Medical Summary | Summary of Care ---
Author Name Unknown Organization [facility] Address [address] [place] [address] Phone [phone] Care Team Providers Care Production Material Handler Name Role Phone Carlitos Rain MD Primary Care Provider Reason for Visit * Reason Comments Dosage Adjustment In Person (Anticoag Cl inic) Pain Encounter Details Date Type Department Care Team Description 11/12/2022 Telemedicine Pharmacy, [place] [address] [facility] [place] [address] [facility] [address] [facility] [place] [address] Sacroiliitis, not elsewhere classified (HCC)*; Cervicalgia; Lumbosacral radiculopathy; Chronic pain syndrome; Spinal stenosis of lumbar region with radiculopathy Allergies Active Allergy Reactions Severity Noted Date [...] Strip 2 04/29/2022 Active OneTouch Delica Plus [id number]:T ype 2 diabetes mellitus with hemoglobin A1c [...] Pain, Severe. 60 Tablet 0 10/29/2022 Active Dulaglutide 1.5 MG/0.5ML Subcutaneous Solution [...] yrs 06/02/2022 Pneumococcal Conjugate Vacci ne, 20-valent ([id number]) 04/14/2022 Pneumococcal Polysaccharide PPV23 (Pneumovax) 07/28/2020 SEASONAL [...] this encounter Progress Notes * Dixie Lau, [facility] - 11/12/2022 1:16 PM EDT Images from the original note were not included. Patient location: HOME. I was in a hospital or clinic location. After connecting through [employer],patient was verified with two unique identifiers. Patient (or authorized legal account maintenance representative) was then informed that this was a Telemedicine visit and being conducted confidentially over secure lines. Methods to assure confidentiality were taken. Patient acknowledged consent and understanding of pr ivacy and security of the Telemedicine visit. The patient agreed to participate. Medication Therapy Disease Management Clinic - Chronic Pain Management Progress Note 11/12/2022 Caren Johnson, identified by name and date of , is a 47 year old female being seen for chronic pain management/education. Patient presents to pain MTM clinic for return visit. Referring Physician: Carlitos Rain MD Medication Use Agreement: on file Patient's Pharmacy: [facility] CHIEF COMPLAINT: OA/ chronic back pain, failed surgeries Fibromyalgia Interval History: Lyrica is tolerated well No side effects Feels the pain levels are still high Pain described as: radiation around the lower [...] (problem unlikely) Daily MME: 15 PDMP Reviewed (11/12/2022): Urine Toxicology Screens: UDS 10/28/22: (+) oxycodone/ oxymorphone (+) THC Functional Goal: to be able to sit and sleep Past Pain Medications: SA Opioids: Oxycodone LA Opioids: NSAIDS: Muscle relaxants: Flexeril Antidepressants: Cymbalta: did not work Anticonvulsants: Gabapentin Lyrica Other: Current Pain Medications: Oxycodone 5 mg QID PRN Topamax 50 mg BID for migraines Lyrica 75 mg BID Wellbutrin Buspirone Creatinine Clearance: Serum creatinine: 0.8 mg/dL 11/11/22 1417 Estimated creatinine clearance: 81.7 mL/min Creatinine Results: Recent Labs Units 11/11/22 [...] following with non [facility] surgeon Dr Mc for what is expected to be a newer issue in the lumbar area that has presented post stabilization of her t- spine. She has had no new injuries Pain levels are worst in the nighttime, wakes in the night. Notes to sleep on the couch and using Melatonin to assist. Morning time is restless Lyrica is tolerated well. Increase in Oxycodone is well tolerated. No side effects noted from either. Endorses the pain levels are still high Adherence: Reviewed current regimen, patient is adherent to regimen. Treatment options: Titrate Lyrica, refill Oxycodone Treatment concerns: Did not address Fibromyalgia component at today's visit. Will need to discuss once more stable, but patient was open to retry of Cymbalta or other SNRI in the future if needed Education provided: Education and MOA provided on treatment options for neuropathic pain provided. Discussion included but not limited to review of past history, MOA, indications, ADRs, Drug interactions, tapering, monitoring parameters, relation of renal/hepatic function and efficacy Realistic expectations were discussed with the patient. We discussed how pain medications, while useful, will never take away the pain completely. We also discussed how pain medication should be utilized to become functional and regain enjoyment out of life by participating more in activities around and outside the home. The medications carry significant risks of physical and psychological dependence and should not be used to relieve feelings of anxiety or depression. I have evaluated the patient for the appropriateness and necessity of opioid pain medications. Patient has been educated towards the benefits and risks of opioid medications, including dependence, addiction, and overdose. Patient is aware of the requirements set out in the medication use agreement,including the need for routine urine drug screening. No red flags for abuse or misuse have been exhibited. PLAN: Titrate Lyrica, refill Oxycodone Medication changes: yes, see below Pain Medications: Oxycodone 5 mg QID PRN Topamax 50 mg BID for migraines INCREASE: Lyrica 150 mg BID Week 1: 75/150 Week 2 and after: 150 mg twice daily Refill Oxycodone Wellbutrin Buspirone Patient verbalized understanding of the plan. Contact clinic with any issues. FOLLOW UP: Return to clinic in 2 weeks 11/25/2022 Dixie Lau [facility] Clinical Pharmacist - Executive Sous Chef Medication Therapy Management Clinic 11/12/2022, 1:17 PM documented in this encounter Plan of Treatment Upcoming Encounters Date Type Specialty Care Team Description 11/25/2022 Telemedicine Pharmacy [facility] [place] [id number] 12/03/2022 Office Visit Pain Medicine Benji Champion CRNP [address] [facility] [place] [id number] 12/10/2022 Office Visit Family Medicine Ale Fontaine CRNP [address] [facility] [place] [address] Scheduled Procedures Name Priority Associated Diagnoses Date/Ti me COLONOSCOPY FLEXIBLE PROXIMA L DIAGNOSTIC Recall Screening for colon cancer Health Maintenance Due Date Last Done Comments DISCUSS TOBACCO CESSATION (REFER TO SMARTSET #8377) 1975 COVID-19 Vaccine (#1) 04/30/1975 Mammogram 06/10/2019 06/09/2018 Hepatitis B (2 of 3 - 19+ 3-dose series) 06/30/2022 06/02/2022 Influenza Vaccine (FLU shot) (#1) 2022 11/17/2021, 11/18/2020, 11/07/2019, Additional history exists Depression, Most Recent Score >= 10 (will fire each visit until score < 10) 10/29/2022 10/28/2022 COLONOSCOPY-ANNUAL AGES 18-100 04/08/2023 04/07/2022, 04/07/2022 DIABETES-EYE EXAM 04/08/2023 04/07/2022 HbA1c 05/13/2023 11/11/2022, 04/07/2022, 03/21/2022 Albumin/Creatinine Ratio 06/03/2023 06/02/2022 Diabetic Foot Exam 06/03/2023 06/02/2022 GFR 11/12/2023 11/11/2022, 0804/2022, 09/19/2022, Additional history exists Lipid Panel 03/21/2027 [...] classified (HCC)- Primary Sacroiliitis, not elsewhere classified Cervicalgia Lumbosacral radiculopathy Thoracic or lumbosacral neuritis or radiculitis, unspecified Chronic pain syndrome Spinal stenosis of lumbar region with radiculopathy Spinal stenosis, lumbar region, without neurogenic claudication documented in this encounter Care Teams Production Material Handler Relationship Specialty Start Date End Date Carlitos Rain MD [address] [facility] [place] [id number] PCP - General Family Medicine 02/18/22 documented as of this encounter
--- OUTSIDE RECORDS SUMMARY | 2023-04-16 10:54 | External Medical Summary | Summary of Care ---
Author Name Unknown Organization [facility] Address [address] [place] [address] Phone [phone] Care Team Providers Care Maintenance Assistant Name Role Phone Carlitos Rain MD Primary Care Provider Reason for Visit * Reason Comments Dosage Adjustment In Person (Anticoag Cl inic) Pain Encounter Details Date Type Department Care Team Description 11/25/2022 [facility]medicine [facility] [place] [facility] [address] [place] [facility] [place] [address] Cervicalgia*; Lumbosacral radiculopathy; Chronic pain syndrome Allergies Active Allergy Reactions Severity Noted Date [...] Strip 2 04/29/2022 Active OneTouch Delica Plus [id number] :Type 2 diabetes mellitus with hemoglobin A1c [...] of less than 7.0% ([facility]) Inject 1.5 mg under the skin once [...] Severe. 60 Tablet 0 11/12/2022 Active Pregabalin 150 MG Oral Capsule (Lyrica) Take 1 Capsule by mouth in the morning and 1 Capsule before bedtime. Increase over 2 weeks per MTM instructions. 60 Capsule 1 11/12/2022 3 Discontinue d(Medicatio n/Dose Changed) documented as of this encounter (statuses as of 11/25/2022) Active Problems Problem Noted Date Generalized osteoarthritis 10/28/2022 Predominant disturbance of emotions 09/07 Food insecurity 08/16/2022 Overview: Per [facility] Protocol Type 2 diabetes mellitus [...] yrs 06/02/2022 Pneumococcal Conjugate Vacci ne, 20-valent ([id number]) 04/14/2022 Pneumococcal Polysaccharide PPV23 (Pneumovax) 07/28/2020 SEASONAL [...] this encounter Progress Notes * Dixie Lau, [facility] - 11/25/2022 3:30 PM EDT Images from the original note were not included. Patient location: HOME. I was in a hospital or clinic location. After connecting through televideo,patient was verified with two unique identifiers. Patient (or authorized legal sales representative [employer] utilities) was then informed that this was a Telemedicine visit and being conducted confidentially over secure lines. Methods to assure confidentiality were taken. Patient acknowledged consent and understanding of pr ivacy and security of the Telemedicine visit. The patient agreed to participate. Medication Therapy Disease Management Clinic - Chronic Pain Management Progress Note 11/25/2022 Caren Johnson, identified by name and date of , is a 47 year old female being seen for chronic pain management/education. Patient presents to pain MTM clinic for return visit. Referring Physician: Carlitos Rain MD Medication Use Agreement: on file Patient's Pharmacy: [facility] CHIEF COMPLAINT: OA/ chronic back pain, failed surgeries Fibromyalgia Interval History: Tolerating decrease back to Lyrica 75 mg twice daily Working with Dr Reeder office with PT and Chiropractor Pain described as: radiation around the lower [...] (problem unlikely) Daily MME: 15 PDMP Reviewed (11/25/2022): Urine Toxicology Screens: UDS 10/28/22: (+) oxycodone/ oxymorphone (+) THC Functional Goal: to be able to sit and sleep Most recent answers to PEG-3 scale: What number best describes your pain on average in the past week?: 8 (11/25/2022 3:00 PM) What number best describes how, during the past week, pain has interfered with your enjoyment of life?: 8 (11/25/2022 3:00 PM) What number best describes how, during the past week, pain has interfered with your general activity?: 8 (11/25/2022 3:00 PM) PEG Pain Total Score: 8 (11/25/2022 3:00 PM) Past Pain Medications: SA Opioids: Oxycodone LA Opioids: NSAIDS: Muscle relaxants: Flexeril Antidepressants: Cymbalta: did not work Anticonvulsants: Gabapentin Lyrica Other: Current Pain Medications: Oxycodone 5 mg QID PRN Topamax 50 mg BID for migraines Lyrica 75 mg BID Tizanidine 4 mg BID PRN: from [facility], [...] this visit is Medication Optimization. Current concerns: : Patient continues with acute on chronic pain. She has had 4 prior back surgeries that were successful and was stable post a complicated thoracic surgery in August until 3 weeks postsurgery. Since that time she has had extreme [...] notes no current surgery is indicated . Seeing Chiropractor and PT at Dr Reeder office. States muscles are swollen and muscles are delayed in healing Did not tolerate Lyrica increase well, made stomach extremely upset. Notes to have pain worsen withweather changes Adherence: Reviewed current regimen, patient is adherent to regimen. Treatment options: Could not tolerate increase to Lyrica to 150 mg BID. Currently back to 75 mg BIDbut would like to try 75 mg TID Working with Dr Mc's office for acute pain post t-spine surgery, once resolved goal remains opioid wean. Okay to continue at this time Treatment concerns: Education provided: Education and MOA provided on [...] abuse or misuse have been exhibited. PLAN: Change Lyrica 75 mg TID Medication changes: yes, see below Pain Medications: Oxycodone 5 mg QID PRN Topamax 50 mg BID for migraines CHANGE: Lyrica 75 mg TID Tizanidine 4 mg BID PRN: from [facility] not [facility] Wellbutrin Buspirone Patient verbalized understanding of the plan. Contact clinic with any issues. FOLLOW UP: Return to clinic in 4 weeks Visit date not found Dixie Lau [facility] Clinical Pharmacist - Mentally Impaired Teacher Medication Therapy Management Clinic 11/25/2022, 3:30 PM documented in this encounter Plan of Treatment Upcoming Encounters Date Type Specialty Care Team Description 12/03/2022 Office Visit Pain Medicine Benji Champion CRNP [address] [facility] [place] [address] 12/10/2022 Office Visit Family Medicine Ale Fontaine CRNP 21 [facility] [place] [address] 12/20/2022 Telemedicine Pharmacy [place], [facility] [address] [facility] [place] [address] 12/29/2022 Office Visit Orthopedics Fidencio Montenegro, [address] [place] [address] Scheduled Procedures Name Priority Associated Diagnoses Date/Ti me COLONOSCOPY FLEXIBLE PROXIMA L DIAGNOSTIC Recall Screening for colon cancer Health Maintenance Due Date Last Done Comments DISCUSS TOBACCO CESSATION (REFER TO SMARTSET #7915) 1975 COVID-19 Vaccine (#1) 04/30/1975 Mammogram 06/10/2019 [...] neuritis or radiculitis, unspecified Chronic pain syndrome documented in this encounter Care Teams Maintenance Assistant Relationship Specialty Start Date End Date Carlitos Rain MD [address] [place] [id number] PCP - General Family Medicine 02/18/22 documented as of this encounter
--- OUTSIDE RECORDS SUMMARY | 2023-04-16 10:54 | External Medical Summary | Summary of Care ---
Author Name Unknown Organization [facility] Address [address] [place] [address] Phone [phone] Care Team Providers Care Child Abuse Worker Name Role Phone Carlitos Rain MD Primary Care Provider Reason for Visit * Reason Onset Date Comments Medication Update 11/12/2022 Encounter Details Date Type Department Care Team Description 11/12/2022 Telephone Pharmacy, [place] [facility] [place] [address] [facility] [place] [address] Medication Update Allergies Active Allergy Reactions Severity Noted Date [...] hemoglobin A1c goal of less than 7.0% ([facility]) Use for injections. Injects trulicity once weekly 100 Each 1 03/26/2022 Active OneTouch Verio In Vitro Strip (Glucose Blood)Indications:Ty pe 2 diabetes mellitus with hemoglobin A1c goal of less than 8.0% ([facility]) Use up to 4 times a day E11.9 400 Strip 2 04/29/2022 Active OneTouch Delica Plus [id number] :Type 2 diabetes mellitus with hemoglobin A1c [...] per MTM instructions. 60 Capsule 1 11/12/2022 Active oxyCODONE HCl 5 MG Oral Tablet (Oxy IR)Indications:Acute exacerbation of chronic low back pain Take 1 Tablet by mouth every 6 hours as needed for Pain, Severe. 60 Tablet 0 10/29/2022 3 Discontinue d(Refill) Pregabalin 75 MG Oral Capsule (Lyrica) Take 1 capsule at bedtime x 3 days, then increase to 1 capsule twice daily until seen again 60 Capsule 1 10/29/2022 3 Discontinue d(Medicatio n/Dose Changed) documented as of this encounter (statuses as of 11/12/2022) Active Problems Problem Noted Date Generalized osteoarthritis 10/28/2022 Predominant disturbance of emotions 09/07 Food insecurity 08/16/2022 Overview: Per [facility] Protocol Type 2 diabetes mellitus with hemoglobin A1c goal of less than 7.0% 03/25/2022 BMI 40.0-44.9, adult 02/18/2022 Spinal stenosis of lumbar region with ra diculopathy 02/18/2022 Restless legs syndrome 02/18/2022 Hypertension goal BP (blood pressure) < 140/90 02/18/2022 Gastroesophageal reflux disease 02/18/19 Perennial allergic rhinitis 02/18/2022 Chronic diarrhea 02/18/2022 [...] yrs 06/02/2022 Pneumococcal Conjugate Vacci ne, 20-valent ([id number]) 04/14/2022 Pneumococcal Polysaccharide PPV23 (Pneumovax) 07/28/2020 SEASONAL [...] Telephone Encounter - Carlitos Rain MD - 11/12/2022 3:32 PM EDT Rxs signed. Thank you. * Telephone Encounter - Dixie Lau RPh - 11/12/2022 1:59 PM EDT Patient was reviewed by Telemedicine visit today Tolerating Lyrica well and agreeable to continue to titrate dose. Still endorses high pain levels INCREASE: Lyrica 150 mg BID Week 1: 75/150 Week 2 and after: 150 mg twice daily Refill Oxycodone Rx's pended for your review Thank you, Dixie Lau [facility] Clinical [facility]ist [facility] documented in this encounter Plan of Treatment Upcoming Encounters Date Type Specialty Care Team Description 11/25/2022 Telemedicine Pharmacy [facility] [address] [facility] [place] [address] 12/03/2022 [facility] Visit [facility] [address] 12/10/2022 Office Visit Family Medicine Ale Fontaine CRNP 21 [place] [phone] Scheduled Procedures Name Priority Associated Diagnoses Date/Ti [...] Lumbago documented in this encounter Care Teams Child Abuse Worker Relationship Specialty Start Date End Date Carlitos Rain MD [address] [place] [address] PCP - General Family Medicine 02/18/22 documented as of this encounter
--- OUTSIDE RECORDS SUMMARY | 2023-04-16 10:54 | External Medical Summary | Summary of Care ---
Author Name Unknown Organization [facility] Address [address] [place] [address] Phone [phone] Care Team Providers Care Paramedic Rn Name Role Phone Carlitos Rain MD Primary Care Provider Reason for Visit * Reason Comments Outpatient Testing Encounter Details Date Type Department Care Team Description 11/11/2022 Laboratory Laboratory [facility] [place] [address] [facility] [place] [phone] [facility] [address] [facility] [address] Type 2 diabetes mellitus with hemoglobin A1c goal of less than 7.0% ([facility]) Allergies Active Allergy Reactions Severity Noted Date [...] Strip 2 04/29/2022 Active OneTouch Delica Plus [id number] ype 2 diabetes mellitus with hemoglobin A1c [...] of less than 7.0% ([facility]) Inject 1.5 mg under the skin [...] yrs 06/02/2022 Pneumococcal Conjugate Vacci ne, 20-valent ([id number]) 04/14/2022 Pneumococcal Polysaccharide PPV23 (Pneumovax) 07/28/2020 SEASONAL [...] Care Team Description 11/12/2022 Telemedicine Pharmacy [facility] 21 [facility] [place] [phone] 12/03/2022 Office Visit Pain Medicine Benji Champion CRNP [address] [facility] [place] [id number] 12/10/2022 Office Visit Family Medicine Ale Fontaine CRNP 21 [facility] [place] [address] Pending Results Name Type Priority Associated Diagnoses Date /Time HEMOGLOBIN A1C Lab Routine Type 2 diabetes mellitus with hemoglobin A1c goal of less than 7.0% ([facility]) 11/11/2022 2:17 PM EDT BASIC METABOLIC PANEL Lab Routine Type 2 diabetes mellitus with hemoglobin A1c goal of less than 7.0% ([facility]) 11/11/2022 2:17 PM EDT Scheduled Procedures Name Priority Associated Diagnoses Date/Ti me COLONOSCOPY FLEXIBLE PROXIMA L DIAGNOSTIC Recall Screening for colon cancer Health Maintenance Due Date Last Done Comments DISCUSS TOBACCO CESSATION (REFER TO SMARTSET #5932) 1975 COVID-19 Vaccine (#1) 04/30/1975 Mammogram 06/10/2019 [...] Foot Exam 06/03/2023 06/02/2022 GFR 09/30/2023 09/29/2022, 09/07, 08/24/2022, Additional history exists Lipid Panel 03/21/2027 [...] (HCC) documented in this encounter Care Teams Paramedic Rn Relationship Specialty Start Date End Date Carlitos Rain MD [address] [facility] [address] [place] [address] PCP - General Family Medicine 02/18/22 documented as of this encounter
--- OUTSIDE RECORDS SUMMARY | 2023-04-16 10:54 | External Medical Summary ---
Author Name Unknown Address Unknown Organization K01:LABORATORY [facility] - [address] [place] [address] Laboratory Report Ordering Provider Test Date Status JOLEEN BAUTISTA 11/11/2022 14:17:41 Final Observation Date Value Abnormality Reference (Units ) Status BUN 11/11/2022 14:17:41 10 6-20 (mg/dL) Final Creatinine 11/11/2022 14:17:41 0.8 0.5-1.0 (mg/dL) Final Glomerular filtration rate/1.73 sq M.predicted [Volume Rate/Area] in Serum, Plasma or Blood by Creatinine-based formula (CKD-EPI) 11/11/2022 14:17:41 87 >=60 (mL/min) Final eGFR is calculated based on the CKD-EPI 2020 equation SODIUM 11/11/2022 14:17:41 142 135-146 (m mol/L) Final Potassium 11/11/2022 14:17:41 4.0 3.5-5.1 (m mol/L) Final Cl 11/11/2022 14:17:41 109 Above high normal 98 -107 (mmol/L) Final CO2 11/11/2022 14:17:41 23 22-32 (mmo l/L) Final Anion gap 11/11/2022 14:17:41 10 7-15 (mmol /L) Final Glucose 11/11/2022 14:17:41 76 70-120 (mg /dL) Final Calcium 11/11/2022 14:17:41 9.1 8.4-10.2 ( mg/dL) Final Performing Location LABORATORY [facility] - [address] [place] [address]
--- OUTSIDE RECORDS SUMMARY | 2023-04-16 10:54 | External Medical Summary | Summary of Care ---
Author Name Unknown Organization [facility] Address [address] [place] [address] Phone [phone] Care Team Providers Care Starch Treating Assistant Name Role Phone Carlitos Rain MD Primary Care Provider Reason for Visit * Reason Onset Date Comments Medication Problem 11/15/2022 Encounter Details Date Type Department Care Team Description 11/15/2022 Telephone Pharmacy Call Center [address] [facility] [place] [address] Kelsie [facility] [place] [address] Medication Problem Allergies Active Allergy Reactions Severity Noted Date Comments Pollen 02/10/2022 documented as of this encounter (statuses as of 11/16/2022) Medications Medication Sig Dispensed Refills Start Date End Date Status cetirizine (ZYRTEC) 10 MG TabletIndications:Seas onal allergies Take 1 Tab by mouth daily. 90 Tab 3 06/09/2018 Active Montelukast Sodium 10 MG Oral Tablet Take by mouth daily. 0 01/07/2021 Active Alcohol Prep Pads 70 % PadIndications:Type 2 diabetes mellitus with hemoglobin A1c goal of less than 7.0% ([facility]) Use for injections. Injects trulicity once weekly 100 Each 1 03/26/2022 Active OneTouch Verio In Vitro Strip (Glucose Blood)Indications:Type 2 diabetes mellitus with hemoglobin A1c goal of less than 8.0% ([facility]) Use up to 4 times a day E11.9 400 Strip 2 04/29/2022 Active OneTouch Delica Plus [id number]:T ype 2 diabetes mellitus with hemoglobin A1c goal of less than 8.0% ([facility]) Up to 4 times a [...] hemoglobin A1c goal of less than 8.0% ([facility]) Take 1 Tablet by mouth [...] hemoglobin A1c goal of less than 7.0% ([facility]) Inject 1.5 mg under the [...] MTM instructions. 60 Capsule 1 11/12/2022 Active documented as of this encounter (statuses as of 11/16/2022) Active Problems Problem Noted Date Generalized osteoarthritis [...] as of this encounter (statuses as of 11/16/2022) Resolved Problems Problem Noted Date Resolved Date [...] as of this encounter (statuses as of 11/16/2022) Immunizations Name Administration Dates Next Due Hepatitis B, 20+ yrs 06/02/2022 Pneumococcal Conjugate Vacci ne, 20-valent ([id number]) 04/14/2022 Pneumococcal Polysaccharide PPV23 (Pneumovax) 07/28/2020 SEASONAL [...] encounter Miscellaneous Notes * Telephone Encounter - Jimmy Saab RPh - 11/16/2022 3:26 PM EDT Patient Phone Numbers Returned patient's call to [facility] Clinic. Medication question. Patient states she increased her Lyricadose as directed to 75 mg in the morning and 150 mg at bedtime on 11/12 and 11/13. Reports taking both days following this increased dose around 2:30, she experienced throat tingling, numbing, and "high feeling". She reports returning back to her previous dose of 75 mg twice a day and no longer experiencing symptoms. Instructed to continue current dose, monitor for symptoms, and follow-up at [facility] appointment 11/25. Jimmy Saab PharmD Clinical Pharmacist Medication Therapy Management Clinic 11/16/2022 3:31 PM * Telephone Encounter - CARIDAD Larsen - 11/16/2022 2:46 PM EDT Caller's name: Caren Preferred call back number(OFFICE NUMBER FOR ): [phone] Reason for call: patient calling again, states she needs a call back from Dixie today, thank you. Alejandrina Rain MA Inpatient Pharmacist I [facility] ([facility] (formerly Telepharmacy) [address] [facility] [phone] [place] [address] ext [phone] * Telephone Encounter - CARIDAD Moncada Tech - 11/15/2022 9:41 AM EDT Caller's name: Healther Preferred call back number(OFFICE NUMBER FOR ): [phone] Reason for call: Medication question: Pt stating she had reactions to the Lyrica 150 mg. Pt's throat felt numb and she felt sick. Pt stopped the medication last evening, 11/14/22. Pt spoke to the Trauma Nurse last evening. Pls advise pt. Ruth Dumont Tech [facility] ([facility] (Formerly Telepharmacy) 11/15/2022, 9:41 AM documented in this encounter Plan of Treatment Upcoming Encounters Date Type Specialty Care Team Description 11/25/2022 Telemedicine Pharmacy [facility] [place] [address] 12/03/2022 Office Visit Pain Medicine Benji Champion CRNP [address] [place] [address] [place] [address] 12/10/2022 Office Visit Family Medicine Ale Fontaine CRNP 21 [facility] [place] [address] Scheduled Procedures Name Priority Associated Diagnoses Date/Ti [...] filedocumented as of this encounter Care Teams Starch Treating Assistant Relationship Specialty Start Date End Date Carlitos Rain MD 21 [facility] [place] [address] PCP - General Family Medicine 02/18/22 documented as of this encounter
--- OUTSIDE RECORDS SUMMARY | 2023-04-16 10:55 | External Medical Summary | Summary of Care ---
Author Name Unknown Organization [facility] Address [address] [place] [address] Phone [phone] Care Team Providers Care Paper Control Clerk Name Role Phone Carlitos Rain MD Primary Care Provider Reason for Visit * Reason Comments eRx-Medication Refill Encounter Details Date Type Department Care Team Description 11/04/2022 Refill [facility] 21 [place] [address] Shantal Fontaine CRNP [address] [place] [address] Allergies Active Allergy Reactions Severity Noted Date Comments Pollen 02/10/2022 documented as of this encounter (statuses as of 11/04/2022) Medications Medication Sig Dispensed Refills Start Date End Date Status cetirizine (ZYRTEC) 10 MG TabletIndications:Se asonal allergies Take 1 Tab by mouth daily. 90 Tab 3 9 Active Montelukast Sodium 10 MG Oral Tablet Take by mouth daily. 0 1 Active Alcohol Prep Pads 70 % PadIndications:Type 2 diabetes mellitus with hemoglobin A1c goal of less than 7.0% ([facility]) Use for injections. Injects trulicity once weekly 100 Each 1 3 Active OneTouch Verio In Vitro Strip (Glucose Blood)Indications:Ty pe 2 diabetes mellitus with hemoglobin A1c goal of less than 8.0% ([facility]) Use up to 4 times a day E11.9 400 Strip 2 3 Active OneTouch Delica Plus [id number] :Type 2 diabetes mellitus with hemoglobin A1c goal of less than 8.0% ([facility]) Up to 4 times a day E11.9 400 Each 2 3 Active Ondansetron 4 MG Oral Tablet DisintegratingIndica [...] the day. 90 Capsule 1 3 Active buPROPion HCl ER (XL) 150 MG Oral Tablet Extended Release 24 Hour (Wellbutrin XL) Take 1 Tablet by mouth in the morning. 30 Tablet 5 3 Active metFORMIN HCl ER 500 MG Oral Tablet Extended Release 24 Hour (Glucophage XR)Indications:Type 2 diabetes mellitus with hemoglobin A1c goal of less than 8.0% (HCC) Take 1 Tablet by mouth in the morning. 90 Tablet 3 3 Active busPIRone HCl 5 MG Oral Tablet (Buspar) Take 1 Tablet by mouth in the morning and 1 Tablet at noon and 1 Tablet before bedtime. 90 Tablet 1 3 Active Topiramate 50 MG Oral Tablet (topAMAX) Take 1 Tablet by mouth in the morning and 1 Tablet before bedtime. 60 Tablet 5 3 Active Atorvastatin Calcium 10 MG Oral Tablet (Lipitor)Indications :Mixed hyperlipidemia TAKE 1 TABLET BY MOUTH DAILY 90 Tablet 3 3 Active Vitamin D3 50 MCG (2000 UT) Oral Capsule TAKE 1 CAPSULE BY MOUTH DAILY 90 Capsule 3 3 Active Lisinopril 5 MG Oral Tablet (Prinivil)Indication s:Essential (primary) hypertension TAKE 1 TABLET BY MOUTH DAILY 90 Tablet 3 3 Active Albuterol Sulfate HFA 108 (90 Base) MCG/ACT Inhalation Aerosol Solution As needed 0 2 Active Nicotine 21 MG/24HR Transdermal Patch 24 Hour (Nicoderm CQ) APPLY 1 PATCH DAILY DIRECTED 0 3 Active oxyCODONE HCl 5 MG Oral Tablet (Oxy IR)Indications:Acute exacerbation of chronic low back pain Take 1 Tablet by mouth every 6 hours as needed for Pain, Severe. 60 Tablet 0 3 Active Pregabalin 75 MG Oral Capsule (Lyrica) Take 1 capsule at bedtime x 3 days, then increase to 1 capsule twice daily until seen again 60 Capsule 1 3 Active Dulaglutide 1.5 MG/0.5ML Subcutaneous Solution Pen-injector (Trulicity)Indicatio ns:Type 2 diabetes mellitus with hemoglobin A1c goal of less than 7.0% ([facility]) Inject 1.5 mg under the skin once a week. 6 mL 2 3 Active Pramipexole Dihydrochloride 0.5 MG Oral Tablet (Mirapex) Take 1 Tablet by mouth at bedtime. 30 Tablet 5 3 Active Pramipexole Dihydrochloride 0.5 MG Oral Tablet Take 1 Tablet by mouth at bedtime. 30 Tablet 5 3 11/05/19 23 Discontinued documented as of this encounter (statuses as of 11/04/2022) Active Problems Problem Noted Date Generalized osteoarthritis 10/28/2022 Predominant disturbance of emotions 09/07 Food insecurity 08/16/2022 Overview: Per [facility] Protocol Type 2 diabetes mellitus [...] as of this encounter (statuses as of 11/04/2022) Resolved Problems Problem Noted Date Resolved Date [...] as of this encounter (statuses as of 11/04/2022) Immunizations Name Administration Dates Next Due Hepatitis B, 20+ yrs 06/02/2022 Pneumococcal Conjugate Vacci ne, 20-valent ([id number]) 04/14/2022 Pneumococcal Polysaccharide PPV23 (Pneumovax) 07/28/2020 Seasonal Influenza Vac, Quad , Cell Cult, PF, 6 Mos and Up, IM, (Flucelvax Quad) 11/17/2021 Seasonal Influenza, PF, 6 mo ns & Above, IM , (Flulaval) 10/13/2018 Seasonal Influenza, Split, I IV3, With [...] encounter Miscellaneous Notes * Telephone Encounter - ALBERT Campbell - 11/04/2022 7:03 PM EDTSigned Prescriptions: Disp Refills Pramipexole Dihydrochloride 0.5 MG Oral Ta*30 Tab*5 Sig: Take 1 Tablet by mouth at bedtime. Authorizing Provider: SHANTAL FONTAINE * Telephone Encounter - Haleigh Echevarria LPN - 11/04/2022 1:47 PM EDTPending Prescriptions: Disp Refills Pramipexole Dihydrochloride 0.5 MG Oral Ta*30 Tab*5 Sig: Take 1 Tablet by mouth at bedtime. * Telephone Encounter - Oren Bartholomew - 11/04/2022 1:18 PM EDTPending Prescriptions: Disp Refills Pramipexole Dihydrochloride 0.5 MG Oral Ta*30 Tab*5 Sig: Take 1Tablet by mouth at bedtime. documented in this encounter Plan of Treatment Upcoming Encounters Date Type Specialty Care Team Description 11/11/2022 Office Visit Pharmacy [facility] [address] [facility] [place] [address] 11/12/2022 Telemedicine Pharmacy [facility] 21 [facility] [place] [id number] 12/03/2022 Office Visit Pain Medicine Benji Champion CRNP [address] [facility] [place] [id number] 12/10/2022 Office Visit Family Medicine Shantal Fontaine CRNP [facility] [place] [address] Scheduled Procedures Name Priority Associated Diagnoses Date/Ti [...] filedocumented as of this encounter Care Teams Paper Control Clerk Relationship Specialty Start Date End Date [facility]itos [facility] [address] PCP - General Family Medicine 02/18/22 documented as of this encounter
--- OUTSIDE RECORDS SUMMARY | 2023-04-16 10:55 | External Medical Summary | Summary of Care ---
Author Name Unknown Organization [facility] Address [address] [place] [address] Phone [phone] Care Team Providers Care Liability Claims Adjuster Name Role Phone Carlitos Rain MD Primary Care Provider Reason for Visit * Reason Comments Dosage Adjustment In Person (Anticoag Cl inic) Pain * Evaluate & Treat - Unlimited Visits (Within 10 days (routine)) - Authorized Specialty Diagnoses / Procedures Referred By Rafiq pendleton Referred To Contact Pharmacist / Pharmacy Diagnoses Chronic pain syndrome Carlitos Rain MD 21 [place] [address] Referral ID Status Reason Start Date Expiration Date Visits Requested Visits Authorized [id number] Authorized Specialty Services Required 10/20/2022 99 99 Encounter Details Date Type Department Care Team Description 10/28/2022 Office Visit Pharmacy, [place] [facility] [place] [address] [facility] [place] [address] Encounter for long-term (current) use of medications* Allergies Active Allergy Reactions Severity Noted Date Comments Pollen 02/10/2022 documented as of this encounter (statuses as of 10/28/2022) Medications Medication Sig Dispensed Refills Start Date [...] once weekly 100 Each 1 03/26/2022 Active Pramipexole Dihydrochloride 0.5 MG Oral Tablet Take 1 Tablet by mouth at bedtime. 30 Tablet 5 04/14/2022 Active OneTouch Verio In Vitro Strip (Glucose Blood)Indications:Ty pe 2 diabetes mellitus with hemoglobin A1c goal of less than 8.0% ([facility]CC) Use up to 4 times a day E11.9 400 Strip 2 04/29/2022 Active OneTouch Delica Plus [id number] :Type 2 diabetes mellitus with hemoglobin A1c [...] the morning. 90 Tablet 3 06/15/2022 Active busPIRone HCl 5 MG Oral Tablet (Buspar) Take 1 Tablet by mouth in the morning and 1 Tablet at noon and 1 Tablet before bedtime. 90 Tablet 1 07/08/2022 Active Dulaglutide 1.5 MG/0.5ML Subcutaneous Solution Pen-injector (Trulicity)Indicatio ns:Type 2 diabetes mellitus with hemoglobin A1c goal of less than 7.0% ([facility]CC) Inject 1.5 mg under the skin once a week. 2 mL 11 08/03/2022 Active Topiramate 50 MG Oral Tablet (topAMAX) [...] MOUTH DAILY 90 Tablet 3 10/06/2022 Active oxyCODONE HCl 5 MG Oral Tablet (Oxy IR)Indications:Acute exacerbation of chronic low back pain Take 1 Tablet by mouth 2 times a day as needed for Pain, Severe. 16 Tablet 0 10/27/2022 Active Albuterol Sulfate HFA 108 (90 Base) MCG/ACT Inhalation Aerosol Solution As needed 0 11/09/2021 Active Nicotine 21 MG/24HR Transdermal Patch 24 Hour (Nicoderm CQ) APPLY 1 PATCH DAILY DIRECTED 0 09/04/2022 Active Cyclobenzaprine HCl 10 MG Oral Tablet (Flexeril)Indication s:Spinal stenosis of lumbar region with radiculopathy Take 1 Tablet by mouth in the morning and 1 Tablet at noon and 1 Tablet in the evening. 270 Tablet 3 02/18/2022 3 Discontinue d(Medicatio n List Clean Up) documented as of this encounter (statuses as of 10/28/2022) Active Problems Problem Noted Date Generalized osteoarthritis 10/28/2022 Predominant disturbance of emotions 09/07 Food insecurity 08/16/2022 Overview: Per [facility] Protocol Type 2 diabetes mellitus with [...] as of this encounter (statuses as of 10/28/2022) Resolved Problems Problem Noted Date Resolved Date [...] as of this encounter (statuses as of 10/28/2022) Immunizations Name Administration Dates Next Due Hepatitis B, 20+ yrs 06/02/2022 Pneumococcal Conjugate Vacci ne, 20-valent ([id number]) 04/14/2022 Pneumococcal Polysaccharide PPV23 (Pneumovax) 07/28/2020 Seasonal [...] of this encounter Progress Notes * Dixie Hoffmann Judi, [facility] - 10/28/2022 3:00 PM EDT Images from the original note were not included. Medication Therapy Disease Management Clinic - Chronic Pain Management Progress Note 10/28/2022 Caren Johnson, identified by name and date of , is a 46 year old female being seen for chronic pain management/education. Patient presents to pain MTM clinic for initial visit. Referring Physician: Carlitos Rain MD Medication Use Agreement: on file Patient's Pharmacy: [facility] CHIEF COMPLAINT: OA/ chronic back pain, failed surgeries Fibromyalgia HPI: Pain in the would back back Follow up with Dr Mc post Thoracic pain post surgery in August, new follow up 11/23 Noted to have pain that radiates from lower back to bilateral legs Noted to have pain that also spikes up the back to neck as well Notes 4 previous surgery were successful States that was good for 3 weeks post recent surgery, but pain came back 3 weeks later, lower area Lost 100 pounds this year, but did not change pain levels OV today with rheumatology " Patient seen today for further follow up evaluation of osteoarthritis.Since the last visit she has now had 5 back surgeries - last one was in August this year by Dr Mc. This surgery has not really helped. She is seeing Dr mc again November 23. Pain has worsened after surgery. She gets sciatica both legs. She is rating her pain at 10. She is on oxycodone through PCP. She also has pain in her fingers, toes, elbows, shoulders. She has some arthritic nodules to the DIPs. She has had 2 knee replacements. She reports a history of RA but labs show negative RF, CCP and normal inflammatory markers. She had seen Abby LY of Rheum in Feb this year and did not feel she had RA. She has tried gabapentin - this can help. Cymbalta did not help. Remembers lyrica but cannot recall if it helped or not. She has been on a lot of meds over the years. " Pain described as: radiation around the lower [...] (problem unlikely) Daily MME: 15 PDMP Reviewed (10/28/2022): Urine Toxicology Screens: today Functional Goal: to be able to sit and sleep Most recent answers to PEG-3 scale: What number best describes your pain on average in the past week?: 10 - Pain as bad as you can imagine (10/28/2022 3:00 PM) What number best describes how, during the past week, pain has interfered with your enjoyment of life?: 10 - Completely interferes (10/28/2022 3:00 PM) What number best describes how, during the past week, pain has interfered with your general activity?: 10 - Completely interferes (10/28/2022 3:00 PM) PEG Pain Total Score: 10 (10/28/2022 3:00 PM) Past Pain Medications: SA Opioids: Oxycodone LA Opioids: NSAIDS: Muscle relaxants: Flexeril Antidepressants: Cymbalta: did not work Anticonvulsants: Gabapentin Lyrica Other: Current Pain Medications: Oxycodone 5 mg BID PRN Topamax 50 mg BID for migraines Wellbutrin Buspirone Creatinine Clearance: Serum creatinine: 0.8 mg/dL 09/29/22 1053 Estimated creatinine clearance: 81 mL/min Creatinine Results: Recent Labs Units 09/29/22 1053 09/19/22 0807 08/24/22 2223 CREATININE - [facility] mg/dL 0.8 0.9 1.0 Hepatic Function (ALT): Recent Labs Units 09/29/22 [...] visit is Medication Optimization. Current concerns: Patient presents with acute on chronic back pain today. She has had 4 prior back surgeries [...] her t-spine. She has had no new injuries She has minor relief with current dose of Oxycodone. She is open to any interventions that may provide her with some quality of life as she navigates any follow up surgery needed OV today with rheumatology "Her history and exam is consistent with osteoarthritis, chronic pain syndrome from multiple back surgeries as well as fibromyalgia. She does not have rheumatoid arthritis as her workup was normal and her exam findings are not consistent with that. I removed rheumatoid art hritis from her problem list and history. She would best be served with seeing the pain management to help with medication management along with her PCP. She does not need to have rheumatology follow-up at this point as she does not have an autoimmune disease and this was discussed with her. " Adherence: Reviewed current regimen, patient is adherent to regimen. Treatment options: UDS today, last dose of Oxycodone 8 am today, states stopped medical marijuana a few weeks ago Increase Oxycodone to 5 mg every 6 hours as needed for severe pain Start Lyrica 75 mg QHS x 3 days then increase to 75 mg BID, recheck with MTM in 2 weeks to titrate dose Treatment concerns: Patient presents with acute on chronic pain today and may be in need of follow up surgery. Will try to stabilize today. Did not address Fibromyalgia component at today's [...] abuse or misuse have been exhibited. PLAN: UDS today, last dose of Oxycodone 8 am today, states stopped medical marijuana a few weeks ago Increase Oxycodone to 5 mg every 6 hours as needed for severe pain Start Lyrica 75 mg QHS x 3 days then increase to 75 mg BID, recheck with MTM in 2 weeks to titrate dose Medication changes: yes, see below Pain Medications: Oxycodone 5 mg BID PRN Topamax 50 mg BID for migraines Increase Oxycodone to 5 mg every 6 hours as needed for severe pain Start Lyrica 75 mg QHS x 3 days then increase to 75 mg BID, recheck with MTM in 2 weeks to titrate dose Patient verbalized understanding of the plan. Contact clinic with any issues. FOLLOW UP: Return to clinic in 2 weeks 11/12/2022 Dixie Lau [facility] Clinical Pharmacist - Ed Special Education Teacher Medication Therapy Management Clinic 10/28/2022, 3:01 PM documented in this encounter Plan of Treatment Upcoming Encounters Date Type Specialty Care Team Description 11/11/2022 Office Visit Pharmacy Page [facility] [address] [facility] [place] [address] 11/12/2022 Telemedicine Pharmacy [place], [facility] [place] [address] 12/03/2022 Office Visit Pain Medicine Benji Champion CRNP [address] [place] [address] [place] [address] 12/10/2022 Office Visit Family Medicine Ale Fontaine CRNP [address] [place] [address] Pending Results Name Type Priority Associated Diagnoses Date /Time PAIN MANAGEMENT DRUG PANEL, URINE W/ INTERPRETATION Lab Routine Encounter for long-term (current) use of medications 10/28/2022 3:53 PM EDT Scheduled Orders Name Type Priority Associated Diagnoses Orde r Schedule PAIN MANAGEMENT DRUG PANEL, URINE W/ INTERPRETATION Lab Routine Encounter for long-term (current) use of medications Expected: 10/28/2022 (Approximate), Expires: 01/27/2023 Scheduled Procedures Name Priority Associated Diagnoses Date/Ti me COLONOSCOPY FLEXIBLE PROXIMA L DIAGNOSTIC Recall Screening for colon cancer Health Maintenance Due Date Last Done Comments DISCUSS TOBACCO CESSATION (REFER TO SMARTSET #[id number]) 1975 COVID-19 Vaccine (#1) 04/30[birth year]1975 Mammogram 06/10/2019 06/09/2018 Hepatitis B (2 of 3 - 19+ 3-dose series) 06/30/2022 06/02/2022 Depression, Most Recent Score >= 10 (will fire each visit until score < 10) 09/21/2022 09/20/2022 Influenza Vaccine (FLU shot) (#1) 2022 11/17/2021, 11/18/2020, 11/07/2019, Additional history exists HbA1c 12/02/2022 06/02/2022, 03/21/2022 COLONOSCOPY-ANNUAL AGES 18-100 04/08/2023 04/07/2022, 04/07/2022 DIABETES-EYE EXAM 04/08/2023 04/07/2022 Albumin/Creatinine Ratio 06/03/2023 06/02/2022 Diabetic Foot Exam 06/03/2023 06/02/2022 GFR 09/30/2023 09/29/2022, 0804/2022, 08/24/2022, Additional history exists Lipid Panel 03/21/2027 03/21/2022, 02/0 10/2021, 02/19/2019, Additional history exists DTaP,Tdap,and Td Vaccines (2 - Td or Tdap) 07/28/2030 07/28/2020 Hepatitis C Screening Completed 10/02/2018 Colonoscopy Discontinued 04/07/2022, 04/07/2022 Colorectal Cancer Screening [...] Procedure Name Priority Date/Time Associated Diagnosis Comments URINE TEMPERATURE Routine 10/28/2022 Encounter for long-term (current) use of medications documented in this encounter Results * URINE TEMPERATURE (10/28/2022) URINE TEMPERATURE 93 90 - 100 F Urine Urine specimen / Unknown 10/28/2022 Dixie Lau [facility] LAB URINE ORDERABL ES documented in this encounter Visit Diagnoses Diagnosis Encounter for long-term (current) use of medications- Primary Encounter for long-term (current) use of other medications documented in this encounter Care Teams Liability Claims Adjuster Relationship Specialty Start Date End Date Carlitos Rain MD [address] [facility] [place] [address] PCP - General Family Medicine 02/18/22 documented as of this encounter
--- OUTSIDE RECORDS SUMMARY | 2023-04-16 10:55 | External Medical Summary | Summary of Care ---
Author Name Unknown Organization [facility] Address [address] [place] [address] Phone [phone] Care Team Providers Care Environmental Professional Name Role Phone Carlitos Rain MD Primary Care Provider Reason for Visit * Reason Comments Outpatient Testing Encounter Details Date Type Department Care Team Description 10/28/2022 Laboratory Laboratory, [place] [address] [place] [address] [address] Encounter for long-term (current) use of medications Allergies Active Allergy Reactions Severity Noted Date [...] hemoglobin A1c goal of less than 7.0% ([facility]) Use for injections. Injects trulicity [...] Strip 2 04/29/2022 Active OneTouch Delica Plus [id number] ype 2 diabetes mellitus with hemoglobin A1c [...] the skin once a week. 2 mL 08/03/2022 Active Topiramate 50 MG Oral Tablet [...] 1 PATCH DAILY DIRECTED 0 09/04/2022 Active documented as of this encounter (statuses [...] yrs 06/02/2022 Pneumococcal Conjugate Vacci ne, 20-valent ([id number]) 04/14/2022 Pneumococcal Polysaccharide PPV23 (Pneumovax) 07/28/2020 Seasonal [...] Care Team Description 11/11/2022 Office Visit Pharmacy [facility] [address] [facility] [place] [address] 11/12/2022 Telemedicine Pharmacy [facility] [address] [place] [address] 12/03/2022 Office Visit Pain Medicine Benji Champion CRNP [address] [facility] [place] [address] 12/10/2022 Office Visit Family Medicine Ale Fontaine CRNP [address] [place] [address] Pending Results Name Type Priority Associated Diagnoses Date /Time PAIN MANAGEMENT DRUG PANEL, URINE W/ INTERPRETATION Lab Routine Encounter for long-term (current) use of medications 10/28/2022 3:53 PM EDT Scheduled Procedures Name Priority Associated [...] medications documented in this encounter Care Teams Environmental Professional Relationship Specialty Start Date End Date Carlitos Rain MD [address] [place] [address] PCP - General Family Medicine 02/18/22 documented as of this encounter
--- OUTSIDE RECORDS SUMMARY | 2023-04-16 10:55 | External Medical Summary | Summary of Care ---
Author Name Unknown Organization [facility] Address [address] [place] [address] Phone [phone] Care Team Providers Care Medical Genetics Director Name Role Phone Carlitos Rain MD Primary Care Provider Reason for Visit * Reason Onset Date Comments Medication Refill 10/28/2022 Encounter Details Date Type Department Care Team Description 10/28/[address] [facility] [address] [facility] [place] [address] Kirt Davis MD [address] [facility] [place] [address] Type 2 diabetes mellitus with hemoglobin A1c goal of less than 7.0% ([facility]) Allergies Active Allergy Reactions Severity Noted Date Comments Pollen 02/10/2022 documented as of this encounter (statuses as of 10/29/2022) Medications Medication Sig Dispensed Refills Start Date [...] Strip 2 04/29/2022 Active OneTouch Delica Plus [id number] :Type 2 diabetes mellitus with hemoglobin A1c [...] before bedtime. 90 Tablet 1 07/08/2022 Active Topiramate 50 MG Oral Tablet (topAMAX) [...] a week. 6 mL 2 10/29/2022 Active Dulaglutide 1.5 MG/0.5ML Subcutaneous Solution Pen-injector (Trulicity)Indicatio ns:Type 2 diabetes mellitus with hemoglobin A1c goal of less than 7.0% (HCC) Inject 1.5 mg under the skin once a week. 2 mL 11 08/03/2022 3 Discontinue d(Refill) documented as of this encounter (statuses as of 10/29/2022) Active Problems Problem Noted Date Generalized osteoarthritis 10/28/2022 Predominant disturbance of emotions 09/07 Food insecurity 08/16/2022 Overview: Per [facility] Protocol Type 2 diabetes mellitus [...] as of this encounter (statuses as of 10/29/2022) Resolved Problems Problem Noted Date Resolved Date [...] as of this encounter (statuses as of 10/29/2022) Immunizations Name Administration Dates Next Due Hepatitis B, 20+ yrs 06/02/2022 Pneumococcal Conjugate Vacci ne, 20-valent ([id number]) 04/14/2022 Pneumococcal Polysaccharide PPV23 (Pneumovax) 07/28/2020 Seasonal [...] encounter Miscellaneous Notes * Telephone Encounter - Ashley Boss RP - 10/29/2022 9:30 AM EDT Reissued balance of refills on current prescription and sent to [place] as requested by pt. Thanks, Ashley Boss, PharmD Clinical Pharmacist [facility] (formerly [facility]) [phone] 10/29/2022 9:31 AM * Telephone Encounter - Ashley Boss RP - 10/29/2022 9:29 AM EDT Pt requesting to be rerouted to Mail Order Please reroute Rx to [facility]. Pending Prescriptions: Disp Refills Dulaglutide 1.5 MG/0.5ML Subcutaneous Josefina*6 mL 2 Sig: Inject 1.5 mg under the skin once a week. Last Visit: 10/15/2022 (in office), Visit date not found (telemedicine) 12/10/2022 If no future appointments scheduled, and last appointment is greater than a year ago, please schedule patient for a follow-up appointment Last date the medication was ordered: 08/03/22 Patient Phone Numbers Labs: Lab Results Component Value Date/Time CREAT 0.8 09/29/2022 10:53 AM CREAT 0.8 04/16/2022 12:00 AM CREAT 0.9 01/28/2019 02:24 PM POTASSIUM 3.7 09/29/2022 10:53 AM POTASSIUM 3.0 (A) 04/16/2022 12:00 AM POTASSIUM 3.9 01/28/2019 02:24 PM LDLCALC 43 03/21/2022 06:01 AM LDLCALC 120 06/14/2018 09:08 AM ALT 14 09/29/2022 10:53 AM ALT 16 01/28/2019 02:24 PM HGBA1C 5.2 06/02/2022 10:28 AM HGBA1C 6.0 03/21/2022 06:01 AM documented in this encounter Plan of Treatment Upcoming Encounters Date Type Specialty Care Team Description 11/11/2022 Office Visit Pharmacy [facility] [address] [facility] [place] [address] 11/12/20[facility] [address] [facility] [place] [address] 12/03/2022 Office Visit Pain Medicine Benji Champion CRNP [address] [place] [address] [place] [address] 12/10/2022 Office Visit Family Medicine Ale Fontaine CRNP [address] [facility] [place] [address] Scheduled Procedures Name Priority Associated Diagnoses Date/Ti me COLONOSCOPY FLEXIBLE PROXIMA L DIAGNOSTIC Recall Screening for colon cancer Health Maintenance Due Date Last Done Comments DISCUSS TOBACCO CESSATION (REFER TO SMARTSET #[id number]) 1975 COVID-19 Vaccine (#1) 04/30/1975 Mammogram 06/10/2019 [...] (HCC) documented in this encounter Care Teams Medical Genetics Director Relationship Specialty Start Date End Date Carlitos Rain MD [address] [place] [id number] PCP - General Family Medicine 02/18/22 documented as of this encounter
--- OUTSIDE RECORDS SUMMARY | 2023-04-16 10:55 | External Medical Summary | Summary of Care ---
Author Name Unknown Organization [facility] Address [address] [place] [address] Phone [phone] Care Team Providers Care Traffic Signal Mechanic Name Role Phone Carlitos Rain MD Primary Care Provider Reason for Referral * Evaluate & Treat - Unlimited Visits (Within 3 days (urgent)) - Authorized Specialty Diagnoses / Procedures Referred By Rafiq pendleton Referred To Contact Orthopaedic Surgery / Orthopedics Diagnoses Sprain of right wrist, initial encounter Contusion of right knee, initial encounter Riri England PA-C [address] [place] [address] Referral ID Status Reason Start Date Expiration Date Visits Requested Visits Authorized [id number] Authorized Specialty Services Required 11/08/[phone] Question Answer Referral Priority Within 3 days (urgent) What body part is the patient being seen for? Forearm/Wrist What condition is the patient being seen for? Fracture including related infection Comments Also R knee pain after fall Reason for Visit * Reason Comments Fall Encounter Details Date Type Department Care Team Description 11/08/2022 [facility] [place] [address] [place] [id number] Riri England PA-C [address] [place] [address] Sprain of anterior talofibular ligament of right ankle, initial encounter*; Sprain of right wrist, initial encounter; Contusion of right knee, initial encounter Allergies Active Allergy Reactions Severity Noted Date Comments Pollen 02/10/2022 documented as of this encounter (statuses as of 11/08/2022) Medications Medication Sig Dispensed Refills Start Date [...] once weekly 100 Each 1 03/26/2022 Active [employer]Touch Verio In Vitro Strip (Glucose Blood)Indications:Type 2 diabetes mellitus with hemoglobin A1c goal of less than 8.0% (HCC) Use up to 4 times a day E11.9 400 Strip 2 04/29/2022 Active [employer] Delica Plus [id number]:T ype 2 diabetes mellitus with hemoglobin A1c [...] A1c goal of less than 7.0% ([facility]) Inject 1.5 mg under the skin once [...] as of this encounter (statuses as of 11/08/2022) Active Problems Problem Noted Date Generalized osteoarthritis [...] as of this encounter (statuses as of 11/08/2022) Resolved Problems Problem Noted Date Resolved Date [...] as of this encounter (statuses as of 11/08/2022) Immunizations Name Administration Dates Next Due Hepatitis B, 20+ yrs 06/02/2022 Pneumococcal Conjugate Vacci ne, 20-valent ([id number]) 04/14/2022 Pneumococcal Polysaccharide PPV23 (Pneumovax) 07/28/2020 SEASONAL [...] Sign Reading Time Taken Comments Blood Pressure 110/70 11/08/2022 10:41 AM EDT Pulse 74 11/08/2022 10:41 AM EDT Temperature 36.6 C (97.8 F) 11/08/2022 10:41 AM E DT Respiratory Rate 17 11/08/2022 10:41 AM EDT Oxygen Saturation 98% 11/08/2022 10:41 AM EDT Inhaled Oxygen Concentration - - Weight 78.9 kg (174 lb) 11/08/2022 10:41 AM EDT Height - - Body Mass Index 32.88 09/29/2022 10:18 AM EDT documented in this encounter Patient Instructions * Patient Instructions* Riri England PA-C - 11/08/2022 11:54 AM EDT Rest, ice the knee, wrist, ankle. You can use ibuprofen or aleve for pain relief. Wear the wrist splint until you are seen by orthopedics. I recommend you follow up with orthopedicsfor the knee as well. Should anything worsen or fail to improve please return to the clinic. documented in this encounter Progress Notes * Riri England PA-C - 11/08/2022 10:57 AM EDT Subjective: Caren Johnson is a 47 year old female. Chief Complaint Patient presents with Fall HPI: 47 yo female presents c/o R wrist pain, R knee pain and R ankle pain x 6 days. Pt states she was in her bathroom, slipped and her R foot rolled under her, she fell onto her R knee and caught herself with her R wrist. She states she is having mild aching of the R wrist, she can fully move it. No numbness or tingling or weakness. She is having mild swelling along the lateral aspect of the R ankle with pain only when she bears weight or walks, no numbness, tingling or weakness. She states Lucille knee bothers her the most. It is a constant aching pain along the tibial plateau, she states it hurts worse with walking, moving the knee. No instability of the knee. She has tried tylenol and ibuprofen with little relief. She had TKA 5-6 yr ago. There was no head injury, she denies any neck, back pain. No dizziness, weakness, h/a, cp, sob, abd pain, n/v. PMH: Patient Active Problem List Diagnosis Code Seasonal allergies J30.2 B12 deficiency E53.8 S/P hysterectomy Z90.710 Neuralgia and neuritis M79.2 Chronic low back pain with sciatica M54.40, G89.29 Other intervertebral disc displacement, lumbosacral region M51.27 Sacroiliitis, not elsewhere classified (HCC) M46.1 Primary osteoarthritis of both knees M17.0 Chronic pain syndrome G89.4 Cervicalgia M54.2 Lumbosacral radiculopathy M54.17 Tobacco use disorder F17.200 BMI 40.0-44.9, adult ([facility]) Z68.41 Spinal stenosis of lumbar region with radiculopathy M48.061, M54.16 Restless legs syndrome G25.81 Hypertension goal BP (blood pressure) < 140/90 I10 Gastroesophageal reflux disease K21.9 Perennial allergic rhinitis J30.89 Chronic diarrhea K52.9 Migraine without status migrainosus, not intractable G43.909 Type 2 diabetes mellitus with hemoglobin A1c goal of less than 7.0% ([facility]) E11.9 Food insecurity Z59.41 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 90 Tab 3 Montelukast Sodium 10 MG Oral Tablet Take by mouth daily. Alcohol Prep Pads 70 % Pad Use for injections. Injects trulicity once weekly 100 Each 1 OneTouch Verio In Vitro Strip (Glucose Blood) Use up to 4 times a day E11.9 400 Strip 2 OneTouch Delica Plus [id number] Up to 4 times a day E11.9 400 Each 2 Ondansetron 4 MG Oral Tablet Disintegrating Place 1 Tablet on tongue every 8 hours as needed for Nausea. dissolve on tongue. 20 Tablet 0 Esomeprazole Magnesium 40 MG Oral Capsule Delayed Release (NexIUM) Take 1 Capsule by mouth daily. 30-60 min prior to the first main meal of the day. 90 Capsule 1 buPROPion HCl ER (XL) 150 MG Oral Tablet Extended Release 24 Hour (Wellbutrin XL) Take 1 Tablet by mouth in the morning. 30 Tablet 5 metFORMIN HCl ER 500 MG Oral Tablet Extended Release 24 Hour (Glucophage XR) Take 1 Tablet by mouthin the morning. 90 Tablet 3 Topiramate 50 MG Oral Tablet (topAMAX) Take 1 Tablet by mouth in the morning and 1 Tablet before bedtime. 60 Tablet 5 Atorvastatin Calcium 10 MG Oral Tablet (Lipitor) TAKE 1 TABLET BY MOUTH DAILY 90 Tablet 3 Vitamin D3 50 MCG (2000 UT) Oral Capsule TAKE 1 CAPSULE BY MOUTH DAILY 90 Capsule 3 Lisinopril 5 MG Oral Tablet (Prinivil) TAKE 1 TABLET BY MOUTH DAILY 90 Tablet 3 Albuterol Sulfate HFA 108 (90 Base) MCG/ACT Inhalation Aerosol Solution As needed Nicotine 21 MG/24HR Transdermal Patch 24 Hour (Nicoderm CQ) APPLY 1 PATCH DAILY DIRECTED oxyCODONE HCl 5 MG Oral Tablet (Oxy IR) Take 1 Tablet by mouth every 6 hours as needed for Pain, Severe. 60 Tablet 0 Pregabalin 75 MG Oral Capsule (Lyrica) Take 1 capsule at bedtime x 3 days, then increase to 1 capsule twice daily until seen again 60 Capsule 1 Dulaglutide 1.5 MG/0.5ML Subcutaneous Solution Pen-injector ([employer]) Inject 1.5 mg under the skin once a week. 6 mL 2 Pramipexole Dihydrochloride 0.5 MG Oral Tablet (Mirapex) Take 1 Tablet by mouth at bedtime. 30 Tablet 5 busPIRone HCl 5 MG Oral Tablet (Buspar) Take 1 Tablet by mouth in the morning and 1 Tablet at noon and 1 Tablet before bedtime. 90 Tablet 5 No current facility-administered medications for this visit. Past Medical History: Diagnosis Date Acute calculous cholecystitis 01/29/2019 Chronic pain due to injury Hematuria, gross 10/11/2014 Sacroiliitis (HCC) Urgency of urination 10/11/2014 Urinary frequency 10/11/2014 Past Surgical History: Procedure Laterality Date ARTHROPLASTY KNEE TOTAL COLONOSCOPY, DIAGNOSTIC (RECTUM) N/A 04/07/2022 poor prep/internal hemorrhoids/recall 1-2 years/COLONOSCOPY FLEXIBLE PROXIMAL DIAGNOSTIC performed by Caitlin Mukherjee MD at END[facility]COPY [facility] EGD, FLEXIBLE, DIAGNOSTIC N/A 06/22/2019 normal/ESOPHAGOGASTRODUODENOSCOPY (EGD), FLEXIBLE, TRANSORAL, DIAGNOSTIC performed by Renae Bowers DO at OR [facility] EGD, FLEXIBLE, DIAGNOSTIC N/A 04/07/2022 biopsies normal/ESOPHAGOGASTRODUODENOSCOPY (EGD), FLEXIBLE, TRANSORAL, DIAGNOSTIC performed by MD Edwin at ENDOSCOPY [facility] LAPAROSCOPY; CHOLECYSTECTOMY N/A 01/29/2019 LAPAROSCOPIC CHOLECYSTECTOMY performed by Nano Lewis DO at OR [facility] SPINAL FUSION, LUMBAR, COMBINED TOTAL ABD HYSTERECTOMY W/WO REMOVAL OF TUBE(S) still has left ovary done around age 34 Review of patient's allergies indicates: Allergen Reactions Pollen Family History Problem Relation Age of Onset Hypertension Father Diabetes Father Breast Cancer Grandmother (Paternal) Breast Cancer Aunt (Paternal) Breast Cancer Aunt (Paternal) Breast Cancer Aunt (Paternal) Family Status Relation Status Fa (Not Specified) PGMA (Not Specified) PAUNT (Not Specified) PAUNT (Not Specified) PAUNT (Not Specified) Social History Socioeconomic History Marital status: Spouse name: Not on file Number of children: Not on file Years of education: Not on file Highest education level: Not on file Occupational History Not on file Tobacco Use Smoking status: Every Day Packs/day: 0.50 Types: Cigarettes Last attempt to quit: 04/09/2019 Years since quittin.5 Smokeless tobacco: Never Tobacco comments: Trying to quit smoking and has been cutting back Vaping Use Vaping Use: Never used Substance and Sexual Activity Alcohol use: No Comment: occ Drug use: No Sexual activity: Not on file Other Topics Concern Not on file Social History Narrative Not on file Social Determinants of Health Financial Resource Strain: Not on file Food Insecurity: Food Insecurity Present Worried About Running Out of Food in the Last Year: Sometimes true Ran Out of Food in the Last Year: Sometimes true Transportation Needs: Not on file Physical Activity: Not on file Stress: Not on file Social Connections: Not on file Intimate Partner Violence: Not on file Housing Stability: Not on file Review of Systems All other systems reviewed and are negative. Objective: BP 110/70 | Pulse 74 | Temp 36.6 C (97.8 F) (Tympanic) | Resp 17 | Wt 78.9 kg (174 lb) | SpO2 98% | BMI 32.88 kg/m | BSA 1.84 m Physical Exam Vitals and nursing note reviewed. Constitutional: General: She is not in acute distress. Appearance: Normal appearance. HENT: Head: Normocephalic and atraumatic. Nose: Nose normal. Mouth/Throat: Pharynx: Oropharynx is clear. Eyes: Conjunctiva/sclera: Conjunctivae normal. Pupils: Pupils are equal, round, and reactive to light. Cardiovascular: Rate and Rhythm: Normal rate. Heart sounds: No murmur heard. No friction rub. No gallop. Pulmonary: Effort: Pulmonary effort is normal. Breath sounds: Normal breath sounds. Musculoskeletal: Right wrist: Normal. Cervical back: Neck supple. Right knee: No swelling, deformity, effusion, ecchymosis or crepitus. Decreased range of motion. Tenderness present. No LCL laxity, MCL laxity, ACL laxity or PCL laxity. Normal alignment, normal meniscus and normal patellar mobility. Normal pulse. Instability Tests: Anterior drawer test negative. Posterior drawer test negative. Anterior Messi test negative. Medial Namrata test negative and lateral Namrata test negative. Right ankle: Swelling present. No deformity or ecchymosis. No tenderness. Normal range of motion. Anterior drawer test negative. Normal pulse. Right Achilles Tendon: Normal. Comments: Ttp along the entire tibial plateau Skin: General: Skin is warm and dry. Findings: No rash. Neurological: General: No focal deficit present. Mental Status: She is alert and oriented to person, place, and time. I do not see any fracture of the ankle or knee. The hardware of TKA appears intact. There is a questionable hairline fracture of the styloid process. ASSESSMENT: Sprain of anterior talofibular ligament of right ankle, initial encounter (Primary) - XR ANKLE 3 OR MORE VIEWS Sprain of right wrist, initial encounter - XR WRIST 3 OR MORE VIEWS - WRIST COCK-UP NON-MOLDED - ORTHOPAEDICS REFERRAL OP Contusion of right knee, initial encounter - XR KNEE 4 OR MORE VIEWS - ORTHOPAEDICS REFERRAL OP Refer to pt handout for further instructions. Riri England PA-C documented in this encounter Nursing Notes * Renetta Covarrubias LPN - 11/08/2022 10:38 AM EDT Caren Johnson is a 47 year old female who presents to walk-in clinic today complaining of Chief Complaint Patient presents with Fall Main Symptoms: Left knee pain, left ankle pain and slight left wrist pain. States her knee is the worst, states it is a stinging/burning pain and that she had a knee replacement of the same knee. Cause: Fell on a wooden platform at home Was this an injury yes and did it happen at work? no How long: Happened last Tuesday Tried: Rest, elevation, cold compress and already takes prescription pain medication/muscle relaxer's for her back with no relief Pt accompanied by: Self documented in this encounter Miscellaneous Notes * Pt Handout (on AVS) - Riri Katepradeep England PA-C - 11/08/2022 11:55 AM EDT Images from the original note were not included. [id number] Understanding a Wrist Sprain A ligament is a strong band of tissue that connects bone to bone. The wrist has many ligaments. If any of these get stretched or torn, this is called a wrist sprain. A wrist sprain can be painful. Itcan also limit movement and use of the wrist and hand. Depending on the severity of the sprain, it may take a few weeks or longer for the wrist to heal. Causes of a wrist sprain Wrist sprains are most often caused by falling and landing on an outstretched hand. Anyone can get a wrist sprain. But the injury may be more likely in people who are very active or play sports. Symptoms of a wrist sprain At the time of injury, you may feel a popping or tearing in the wrist. You may have pain, redness, and swelling. You may also have some bruising. In some cases, symptoms may spread from the wrist to the hand. Until the wrist has healed, it may be hard to move or use the wrist and hand for normal tasks and activities, especially gripping and lifting. Treating a wrist sprain Treatment for wrist sprains may include any of the following: Prescription or qpip-lqx-kqpuxev medicines. These help reduce pain and swelling. You may take these medicines as pills. Or you may apply them to the skin as a gel, cream, or patch. Nonsteroidal anti-inflammatory drugs (NSAIDs) are the most common medicines used. A splint, brace, or cast. This is worn to support the wrist and keep the wrist from moving. You may need it for several weeks or longer, until the wrist heals. Physical therapy and exercises. These help improve strength, flexibility, and range of motion inthe wrist and hand. Surgery. You may need surgery if the sprain is severe. For example, surgery may be needed if theligament is torn or if nearby tissues and bone are also injured. After surgery, you will often needto wear a splint or cast for a month or longer, until the wrist has healed. Self-care measures You can do several things to help relieve pain and swelling. These may include: Limiting how much you move and use your wrist and hand Applying an ice pack to the injured area. Wrap the ice pack in a clean, thin towel or cloth. Never put ice or an ice pack directly on the skin. Keeping your wrist and hand raised (elevated) above heart level Wrapping your wrist in an elastic bandage Possible complications If the injury doesn?t heal properly, it has a higher chance of happening again. The injury can alsobecome long-term (chronic). This can cause ongoing pain, weakness, or instability of the wrist. Over time, arthritis may develop in the wrist. This can worsen pain and cause stiffness and limited movement of the wrist and hand. When to call your healthcare provider Call your healthcare provider right away if any of the following occur: Fever of 100.4F (38C) or higher, or as directed by your healthcare provider Chills Symptoms that don?t get better with treatment, or get worse Hand or fingers that feel numb or very cold, turn blue or rojo, or swell Symptoms, such as redness, warmth, swelling, bleeding, or drainage that occur at the incision sites. This only applies if you had surgery. New symptoms Last Reviewed Date: 08/07/202119995808-4699 [employer]. All rights reserved. This information is not intended as a substitute for professional medical care. Always follow your healthcare professional's instructions. * Pt Handout (on AVS) - Riri England PA-C - 11/08/2022 11:55 AM EDT Images from the original note were not included. [id number] Ankle Sprain (Adult) An ankle sprain is a stretching or tearing of the ligaments that hold the ankle joint together. There are no broken bones. An ankle sprain is a common injury for both children and adults. It happens when the ankle turns, twists, or rolls in an awkward way. This can be caused by a sports injury. Or it can happen from doing something as simple as stepping on an uneven surface. Ligaments are made of tough connective tissue. Normally, ligaments stretch a certain amount and then go back to their normal place. A sprain happens when a ligament is forced to stretch more than thenormal amount. A severe sprain can actually tear the ligaments. If you have a severe sprain, you may have felt or heard something like a pop when you were injured. Ankle sprains are given a grade depending on whether they are mild, moderate, or severe: Grade 1 sprain. A mild sprain with minor stretching and damage to the ligament. Grade 2 sprain. A moderate sprain where the ligament is partly torn. Grade 3 sprain. The most severe kind of sprain. The ligament is completely torn. Most sprains take about 4 to 6 weeks to heal. A severe sprain can take several months to recover. Your healthcare provider may order X-rays to be sure you don?t have a fracture, or broken bone. The injured area will feel sore. Swelling and pain may make it hard to walk. You may need crutches if walking is painful. Or your provider may have you use a cast boot or air splint. This will dependon the grade of ankle sprain that you have. Home care For a Grade 1 sprain, use RICE (rest, ice, compression, and elevation): Rest your ankle. Don?t walk on it. Ice should be used right away to help control swelling. Place an ice pack over the injured area for 20 minutes. Do this every 3 to 6 hours for the first 24 to 48 hours. Keep using ice packs to ease pain and swelling as needed. To make an ice pack, put ice cubes in a plastic bag that seals at thetop. Wrap the bag in a clean, thin towel or cloth. Never put ice or an ice pack directly on the skin. The ice pack can be put right on the cast, bandage, or splint. As the ice melts, be careful that the cast, bandage, or splint doesn?t get wet. If you have a boot, open it to apply an ice pack, unless told otherwise by your provider. Compression devices help to control swelling. They also keep the ankle from moving and support your injured ankle. These devices include dressings, elastic bandages, and wraps. Elevate or raise your ankle above the level of your heart when sitting or lying down. This is very important for the first 48 hours. Follow the RICE guidelines for a Grade 2 sprain. This type of sprain will take longer to heal. Your provider may have you wear a splint, cast, or brace to keep your ankle from moving. If you have a Grade 3 sprain, you are at risk for long-term ankle instability. In rare cases, surgery may be needed. Your provider may have you wear a short leg cast or a walking boot for 2 to 3 weeks. After 48 hours, it may be helpful to apply heat for 20 minutes several times a day. You can do this with a heating pad or warm compress. Or you may want to go back and forth between using ice and heat. Never apply heat directly to the skin. Always wrap the heating pad or warm compress in a clean, thin towel or cloth. You may use qqte-zdj-yilzwuh pain medicine (NSAIDS or nonsteroidal anti- inflammatory drugs) to control pain, unless another pain medicine was prescribed. Talk with your provider before using thesemedicines if you have chronic liver or kidney disease, stomach ulcer or gastrointestinal bleeding, or if you take a blood thinner. Follow any rehabilitation exercises your provider gives you. These can help you be more flexibleand improve your balance and coordination. This is helpful in preventing long-term ankle problems. Prevention To help prevent ankle sprains, it?s important to have good strength, balance, and flexibility. Be sure to: Always warm up before you exercise or do something very active Be careful when walking or running on uneven or cracked surfaces Wear shoes that are in good condition and fit well Listen to your body?s signals to slow down when you are in pain or tired Follow-up care Any X-rays you had today don?t show any broken bones, breaks, or fractures. Sometimes fractures don?t show up on the first X-ray. Bruises and sprains can sometimes hurt as much as a fracture. These injuries can take time to heal completely. If your symptoms don?t get better or they get worse, talk with your healthcare provider. You may need a repeat X-ray. Follow up with your healthcare provider, or as advised. Check for any warning signs listed below. When to get medical advice Call your healthcare provider right away if any of these occur: Fever of 100.4 F (38 C) or higher, or as directed by your provider Chills The injury doesn?t seem to be healing The swelling comes back The cast or splint has a bad smell The plaster cast or splint gets wet or soft The fiberglass cast or splint gets wet and doesn't dry for 24 hours Pain or swelling gets worse, or redness appears Your toes become cold, blue, numb, or tingly The skin is discolored (looks blue, purple, or rojo), has blisters, or is irritated You re-injure your ankle Last Reviewed Date: 03/10/202119998850-7994 [employer]. All rights reserved. This information is not intended as a substitute for professional medical care. Always follow your healthcare professional's instructions. * Pt Handout (on AVS) - Riri England PA-C - 11/08/2022 11:55 AM EDT Images from the original note were not included. [id number] Understanding Bone Bruise (Bone Contusion) A bone bruise is an injury to a bone that is less severe than a bone fracture. Bone bruises are fairly common. They can happen to people of all ages. Any type of bone in your body can be bruised. Other injuries often happen along with a bone bruise, such as damage to nearby ligaments. What happens when a bone is bruised? Bone is made of different kinds of tissue. The periosteum is a thin layer of tissue that covers most of a bone. Where bones come together, there is usually a layer of cartilage at the edges. The bonehere is called subchondral bone. Deep inside the bone is an area called the medulla. It contains the bone marrow and fibrous tissue called trabeculae. With a bone fracture, all of the trabeculae in a region of bone have broken. But with a bone bruise, an injury only damages some of these trabeculae. An injury might cause blood to build up in the area beneath the periosteum. This causes a subperiosteal hematoma, a type of bone bruise. An injury might also cause bleeding and swelling in the area between your cartilage and the bone beneath it. This causes a subchondral bone bruise. Or bleeding and swelling can occur in the medulla of your bone. This is called an intraosseous bone bruise. What causes a bone bruise? Injury of any kind can cause a bone bruise. Sports injuries, motor vehicle accidents, or falls froma height can cause them. Twisting injuries that cause joint sprains can also cause a bone bruise. Health conditions like arthritis may also lead to a bone bruise. This is because arthritis causes bone surfaces to grind against each other. Child abuse is another cause of bone bruises. Symptoms of a bone bruise Symptoms of a bone bruise can include: Pain and soreness in the injured area Swelling in the area and soft tissues around it Change in color of the injured area Swelling or stiffness of an injured joint This pain is often more severe and lasts longer than a soft tissue injury. How severe your symptomsare and how long they last depends on how severe the bone bruise is. Diagnosing a bone bruise Your healthcare provider will ask you about your medical history and symptoms. They will ask how you got your injury. Your provider will examine the injured area to check for pain, bruising, and swelling. After the exam, your healthcare provider may be able to tell if you have a bone bruise. A bone bruise doesn?t show up on an X-ray. But you may be given an X-ray to rule out a bone fracture. A fracture may need a different kind of treatment. An MRI can confirm a bone bruise. But your healthcare provider will likely only give you an MRI if your symptoms don?t get better. Last Reviewed Date: 06/07/[id number] [employer]. All rights reserved. This information is not intended as a substitute for professional medical care. Always follow your healthcare professional's instructions. documented in this encounter Plan of Treatment Upcoming Encounters Date Type Specialty Care Team Description 11/11/2022 Office Visit [facility] [address] [facility] [place] [address] 11/12/2022 Telemedicine Pharmacy [facility] [address] [place] [address] [place] [address] 12/03/2022 Office Visit Pain Medicine Benji Champion CRNP [address] [address] 12/10/2022 Office Visit Family Medicine Ale Fontaine CRNP [address] [place] [address] Pending Results Name Type Priority Associated Diagnoses Date /Time XR KNEE 4 OR MORE VIEWS Medical Imaging STAT Contusion of right knee, initial encounter 11/08/2022 11:24 AM EDT XR WRIST 3 OR MORE VIEWS Medical Imaging STAT Sprain of right wrist, initial encounter 11/08/2022 11:27 AM EDT XR ANKLE 3 OR MORE VIEWS Medical Imaging STAT Sprain of anterior talofibular ligament of right ankle, initial encounter 11/08/2022 11:28 AM EDT Scheduled Orders Name Type Priority Associated Diagnoses Orde r Schedule WRIST COCK-UP NON-MOLDED Procedures Routine Sprain of right wrist, initial encounter Ordered: 11/08/2022 Scheduled Procedures Name Priority Associated Diagnoses Date/Ti me COLONOSCOPY FLEXIBLE PROXIMA L DIAGNOSTIC Recall Screening for colon cancer Scheduled Referrals Name Type Priority Associated Diagnoses Order Schedule ORTHOPAEDICS REFERRAL OP Referral Within 3 days (urgent) Sprain of right wrist, initial encounter Contusion of right knee, initial encounter Ordered: 11/08/2022 Health Maintenance Due Date Last Done Comments DISCUSS TOBACCO CESSATION (REFER TO SMARTSET #4261) 1974 COVID-19 Vaccine (#1) 04/30/1975 Mammogram 06/10/2019 [...] as of this encounter Visit Diagnoses Diagnosis Sprain of anterior talofibular ligament of right ankle, initial encounter- Primary Sprain of right wrist, initial encounter Contusion of right knee, initial encounter documented in this encounter Care Teams Traffic Signal Mechanic Relationship Specialty Start Date End Date Carlitos Rain MD [address] [facility] [address] [place] [address] PCP - General Family Medicine 02/18/22 documented as of this encounter"
--- OUTSIDE RECORDS SUMMARY | 2023-04-16 10:55 | External Medical Summary | Summary of Care ---
Author Name Unknown Organization [facility] Address [address] [place] [address] Phone [phone] Care Team Providers Care Armature Bander Name Role Phone Carlitos Rain MD Primary Care Provider Encounter Details Date Type Department Care Team Description 11/08/2022 Telephone [facility], [place] [address] [place] [address] Riri England PA-C [address] [place] [address] Allergies Active Allergy Reactions Severity Noted Date [...] goal of less than 8.0% ([facility]) Use up to 4 times a day E11.9 400 Strip 2 04/29/2022 Active OneTouch Delica Plus Bmsznh46YKnvljvndsvz:T ype 2 diabetes mellitus with hemoglobin A1c [...] yrs 06/02/2022 Pneumococcal Conjugate Vacci ne, 20-valent ([id number]) 04/14/2022 Pneumococcal Polysaccharide PPV23 (Pneumovax) 07/28/2020 SEASONAL [...] Care Team Description 11/11/2022 Office Visit Pharmacy Gabri[facility] [address] [facility] [place] [address] 11/12/2022 Telemedicine Pharmacy [place], [facility] [address] [place] [address] 12/03/2022 Office Visit Pain Medicine Benji Champion CRNP [address] [place] [address] [place] [address] 12/10/2022 Office Visit Family Medicine Ale Fontaine CRNP [facility] [place] [address] Scheduled Procedures Name Priority Associated Diagnoses Date/Ti [...] filedocumented as of this encounter Care Teams Armature Bander Relationship Specialty Start Date End Date Carlitos Rain MD [address] [place] [address] [address] PCP - General Family Medicine 02/18/22 documented as of this encounter
--- OUTSIDE RECORDS SUMMARY | 2023-04-16 10:55 | External Medical Summary | Summary of Care ---
Author Name Unknown Organization [facility] Address [address] [place] [address] Phone [phone] Care Team Providers Care Heel Boom Operator Name Role Phone Adelina Rain MD Primary Care Provider Reason for Visit * Reason Comments eRx-Medication Refill Encounter Details Date Type Department Care Team Description 11/04/2022 Refill [facility] [address] [place] [address] Adelina Rain MD 21 [facility] [place] [address] Allergies Active Allergy Reactions Severity Noted Date Comments Pollen 02/10/2022 documented as of this encounter (statuses as of 11/05/2022) Medications Medication Sig Dispensed Refills Start Date End Date Status cetirizine (ZYRTEC) 10 MG TabletIndications:Se asonal allergies Take 1 Tab by mouth daily. 90 Tab 3 9 Active Montelukast Sodium 10 MG Oral Tablet Take by mouth daily. 0 1 Active Alcohol Prep Pads 70 % PadIndications:Type 2 diabetes mellitus with hemoglobin A1c goal of less than 7.0% ([facility]) Use for injections. Injects trulicity once weekly 100 Each 1 3 Active OneTouch Verio In Vitro Strip (Glucose Blood)Indications:Ty pe 2 diabetes mellitus with hemoglobin A1c goal of less than 8.0% ([facility]) Use up to 4 times a day E11.9 400 Strip 2 3 Active OneTouch Delica Plus Tfhvzu29EAvtfoobrmpw :Type 2 diabetes mellitus with hemoglobin A1c [...] the morning. 90 Tablet 3 3 Active Topiramate 50 MG Oral Tablet [...] A1c goal of less than 7.0% ([facility]) Inject 1.5 mg under the skin once a week. 6 mL 2 3 Active Pramipexole Dihydrochloride 0.5 MG Oral Tablet (Mirapex) Take 1 Tablet by mouth at bedtime. 30 Tablet 5 3 Active busPIRone HCl 5 MG Oral Tablet (Buspar) Take 1 Tablet by mouth in the morning and 1 Tablet at noon and 1 Tablet before bedtime. 90 Tablet 5 3 Active busPIRone HCl 5 MG Oral Tablet (Buspar) Take 1 Tablet by mouth in the morning and 1 Tablet at noon and 1 Tablet before bedtime. 90 Tablet 1 3 11/06/19 23 Discontinued documented as of this encounter (statuses as of 11/05/2022) Active Problems Problem Noted Date Generalized osteoarthritis 10/28/2022 Predominant disturbance of emotions 09/07 Food insecurity 08/16/2022 Overview: Per [facility] Protocol Type 2 diabetes mellitus with [...] as of this encounter (statuses as of 11/05/2022) Resolved Problems Problem Noted Date Resolved Date [...] as of this encounter (statuses as of 11/05/2022) Immunizations Name Administration Dates Next Due Hepatitis B, 20+ yrs 06/02/2022 Pneumococcal Conjugate Vacci ne, 20-valent ([id number]) 04/14/2022 Pneumococcal Polysaccharide PPV23 (Pneumovax) 07/28/2020 SEASONAL [...] Telephone Encounter - Adelina Rain MD - 11/05/2022 10:51 AM EDT Signed Prescriptions: Disp Refills busPIRone HCl 5 MG Oral Tablet (Buspar) 90 Tab*5 Sig: Take 1 Tablet by mouth in the morning and 1 Tablet at noon and 1 Tablet before bedtime. Authorizing Provider: ADELINA RAIN * Telephone Encounter - Valeri Knight RP - 11/05/2022 7:05 AM EDTPending Prescriptions: Disp Refills busPIRone HCl 5 MG Oral Tablet (Buspar) 90 Tab*1 Sig: Take 1 Tablet by mouth in the morning and 1 Tablet at noon and 1 Tablet before bedtime. documented in this encounter Plan of Treatment Upcoming Encounters Date Type Specialty Care Team Description 11/11/2022 Office Visit Pharmacy Gabriella [facility] [address] [place] [address] 11/12/2022 Telemedicine Pharmacy [facility] [address] [facility] [place] [id number] 12/03/2022 Office Visit Pain Medicine Benji Champion CRNP [address] [facility] [place] [address] 12/10/2022 Office Visit Family Medicine Ale Fontaine CRNP 21 [facility] [place] [address] Scheduled Procedures Name Priority Associated Diagnoses Date/Ti [...] filedocumented as of this encounter Care Teams Heel Boom Operator Relationship Specialty Start Date End Date Adelina Rain MD [address] [facility] [place] [id number] PCP - General Family Medicine 02/18/22 documented as of this encounter
--- OUTSIDE RECORDS SUMMARY | 2023-04-16 10:55 | External Medical Summary | Summary of Care ---
Author Name Unknown Organization [facility] Address [address] [place] [address] Phone [phone] Care Team Providers Care Day Care Home Mother Name Role Phone Carlitos Rain MD Primary Care Provider Reason for Visit * Reason Onset Date Comments Abnormal Lab Results 11/02/2022 Encounter Details Date Type Department Care Team Description 11/02/2022 Telephone Pharmacy, [place] [address] [place] [address] [facility] [place] [address] Abnormal Lab Results Allergies Active Allergy Reactions Severity Noted Date Comments Pollen 02/10/2022 documented as of this encounter (statuses as of 11/03/2022) Medications Medication Sig Dispensed Refills Start Date End Date Status cetirizine (ZYRTEC) 10 MG TabletIndications:Seas onal allergies Take 1 Tab by mouth daily. 90 Tab 3 06/09/2018 Active Montelukast Sodium 10 MG Oral Tablet Take by mouth daily. 0 01/07/2021 Active Alcohol Prep Pads 70 % PadIndications:Type 2 diabetes mellitus with hemoglobin A1c goal of less than 7.0% ([facility]) Use for injections. Injects trulicity once [...] Strip 2 04/29/2022 Active OneTouch Delica Plus Ahjhok13IOfcssfofigk:T ype 2 diabetes mellitus with hemoglobin A1c [...] hemoglobin A1c goal of less than 7.0% ([facility]) Inject 1.5 mg under the skin once a week. 6 mL 2 10/29/2022 Active documented as of this encounter (statuses as of 11/03/2022) Active Problems Problem Noted Date Generalized osteoarthritis [...] as of this encounter (statuses as of 11/03/2022) Resolved Problems Problem Noted Date Resolved Date [...] as of this encounter (statuses as of 11/03/2022) Immunizations Name Administration Dates Next Due Hepatitis B, 20+ yrs 06/02/2022 Pneumococcal Conjugate Vacci ne, 20-valent ([id number]) 04/14/2022 Pneumococcal Polysaccharide PPV23 (Pneumovax) 07/28/2020 Seasonal [...] Telephone Encounter - Carlitos Rain MD - 11/03/2022 9:50 AM EDT Noted. * Telephone Encounter - Dixie Lau [facility] - 11/02/2022 12:51 PM EDT UDS 10/28/22: (+) oxycodone/ oxymorphone (+) THC Patient had stated had stopped medical marijuana a few weeks ago, so this low level is not a surprise. She is aware will repeat labs and no THC levels are expected moving forward. Dixie Lau [facility] Clinical Pharmacist [facility] documented in this encounter Plan of Treatment Upcoming Encounters Date Type Specialty Care Team Description 11/11/[address] [facility] [address] [facility] [place] [address] 11/12/2022 Telemedicine Pharmacy [facility] [address] [place] [address] 12/03/2022 Office Visit Pain Medicine Benji Champion CRNP [address] [place] [address] 12/10/2022 Office Visit Family Medicine Ale Fontaine CRNP 21 [facility] [place] [address] Scheduled Procedures Name Priority Associated Diagnoses Date/Ti me COLONOSCOPY FLEXIBLE PROXIMA L DIAGNOSTIC Recall Screening for colon cancer Health Maintenance Due Date Last Done Comments DISCUSS TOBACCO CESSATION (REFER TO SMARTSET #3523) 1975 COVID-19 Vaccine (#1) 04/30/1975 Mammogram 06/10/2019 [...] filedocumented as of this encounter Care Teams Day Care Home Mother Relationship Specialty Start Date End Date Carlitos Rain MD 21 [facility] [place] [id number] PCP - General Family Medicine 02/18/22 documented as of this encounter
--- OUTSIDE RECORDS SUMMARY | 2023-04-16 10:55 | External Medical Summary | Summary of Care ---
Author Name Unknown Organization [facility] Address [address] [place] [address] Phone [phone] Care Team Providers Care Automotive Glass Technician Name Role Phone Carlitos Rain MD Primary Care Provider Encounter Details Date Type Department Care Team Description 11/01/2022 Orders Only [facility] Research Department [address] [place] [address] [place] [facility] [employer] Other*[id number] Allergies Active Allergy Reactions Severity Noted Date Comments Pollen 02/10/2022 documented as of this encounter (statuses as of 11/01/2022) Medications Medication Sig Dispensed Refills Start Date [...] goal of less than 8.0% ([facility]) Use up to 4 times a day E11.9 400 Strip 2 04/29/2022 Active OneTouch Delica Plus Atjixx87FNtooyekmwyf:T ype 2 diabetes mellitus with hemoglobin A1c [...] than 7.0% ([facility]) Inject 1.5 mg under the skin once a week. 6 mL 2 10/29/2022 Active documented as of this encounter (statuses as of 11/01/2022) Active Problems Problem Noted Date Generalized osteoarthritis [...] as of this encounter (statuses as of 11/01/2022) Resolved Problems Problem Noted Date Resolved Date [...] as of this encounter (statuses as of 11/01/2022) Immunizations Name Administration Dates Next Due Hepatitis B, 20+ yrs 06/02/2022 Pneumococcal Conjugate Vacci ne, 20-valent ([id number]) 04/14/2022 Pneumococcal Polysaccharide PPV23 (Pneumovax) 07/28/2020 Seasonal [...] Care Team Description 11/11/2022 Office Visit Pharmacy [facility] [address] [place] [address] 11/12/2022 Telemedicine Pharmacy [facility] [address] [facility] [place] [address] 12/03/2022 Office Visit Pain Medicine Benji Champion CRNP [address] [facility] [place] [address] 12/10/2022 Office Visit Family Medicine Ale Fontaine CRNP 21 [facility] [place] [address] Scheduled Orders Name Type Priority Associated Diagnoses Orde r Schedule MYCODE SUBSEQUENT ADULT Lab Routine [employer] Other*[id number] Every 6 Months for 2 Occurrences starting 11/01/2022 until 11/21/2023 Scheduled Procedures Name Priority Associated Diagnoses Date/Ti [...] as of this encounter Visit Diagnoses Diagnosis [employer] Other*[id number] documented in this encounter Care Teams Automotive Glass Technician Relationship Specialty Start Date End Date Carlitos Rain MD [address] [facility] [place] [address] PCP - General Family Medicine 02/18/22 documented as of this encounter
--- OUTSIDE RECORDS SUMMARY | 2023-04-16 10:55 | External Medical Summary | Summary of Care ---
Author Name Unknown Organization [facility] Address [address] [place] [address] Phone [phone] Care Team Providers Care Chemical Project Engineer Name Role Phone Carlitos Rain MD Primary Care Provider Reason for Visit * Reason Comments Outpatient Testing Dosage Adjustment In Person (Anticoag Cl inic) Pain Encounter Details Date Type Department Care Team Description 10/28/2022 Laboratory Laboratory, [place] [address] [place] [address] [facility] [address] [place] [address] Encounter for long-term (current) use of medications Allergies Active Allergy Reactions Severity Noted Date Comments Pollen 02/10/2022 documented as of this encounter (statuses as of 11/02/2022) Medications Medication Sig Dispensed Refills Start Date [...] Strip 2 04/29/2022 Active OneTouch Delica Plus [id number] :Type 2 diabetes mellitus with hemoglobin A1c [...] 2 mL 11 08/03/2022 3 Discontinue d(Refill) oxyCODONE HCl 5 MG Oral Tablet (Oxy IR)Indications:Acute exacerbation of chronic low back pain Take 1 Tablet by mouth 2 times a day as needed for Pain, Severe. 16 Tablet 0 10/27/2022 3 Discontinue d(Refill) documented as of this encounter (statuses as of 11/02/2022) Active Problems Problem Noted Date Generalized osteoarthritis [...] as of this encounter (statuses as of 11/02/2022) Resolved Problems Problem Noted Date Resolved Date [...] as of this encounter (statuses as of 11/02/2022) Immunizations Name Administration Dates Next Due Hepatitis B, 20+ yrs 06/02/2022 Pneumococcal Conjugate Vacci ne, 20-valent ([id number]) 04/14/2022 Pneumococcal Polysaccharide PPV23 (Pneumovax) 07/28/2020 Seasonal [...] this encounter Progress Notes * Dixie Lau [facility] - 11/02/2022 12:46 PM EDT UDS 10/28/22: (+) oxycodone/ oxymorphone (+) THC Patient had stated had stopped medical marijuana a few weeks ago, so this low level is not a surprise. She is aware will repeat labs and no THC levels are expected moving forward. Dixie Lau [facility] Clinical Pharmacist [facility] documented in this encounter Plan of Treatment Upcoming Encounters Date Type Specialty Care Team Description 11/11/2022 Office Visit Pharmacy [facility] [address] [facility] [place] [address] 11/12/2022 Telemedicine Pharmacy [facility] 21 [facility] [place] [address] 12/03/2022 Office Visit Pain Medicine Benji Champion CRNP [address] [place], [place] [address] [address] 12/10/2022 Office Visit Family Medicine [facility] [address] [facility] [place] [address] Pending Results Name Type Priority Associated Diagnoses [...] Procedure Name Priority Date/Time Associated Diagnosis Comments PAIN MANAGEMENT DRUG PANEL, URINE W/ INTERPRETATION Routine 10/28/2022 3:53 PM EDT Encounter for long-term (current) use of medications THC METABOLITE, URINE CONFIRMATION Routine 10/28/2022 3:53 PM EDT Encounter for long-term (current) use of medications documented in this encounter Results * (ABNORMAL) THC METABOLITE, URINE CONFIRMATION (10/28/2022 3:53 PM EDT) [facility] Methodology LC-MS/MS 11/02/2022 12:44 PM EDT [facility] [place] Cannabinoids 28(H) Negative ng/mL 11/02/2022 12:44 PM EDT [facility] [place] Urine Urine specimen / Unknown Non-blood Collection / Unknown 10/28/2022 3:53 PM EDT 10/28/2022 3:53 PM EDT Narrative [facility] [place] - 11/02/2022 12:44 PM EDT Cutoff Concentration: Drug Level THC-COOH 10 ng/mL This test was developed and its performance characteristics determined by [employer]. It has not been cleared or approved by the [place] Food and Drug Administration. Dixie Lau [facility] LAB URINE ORDERABL ES [facility] [place] [address] [place] [address] documented in this encounter Visit Diagnoses Diagnosis Encounter for long-term (current) use of medications Encounter for long-term (current) use of other medications documented in this encounter Care Teams Chemical Project Engineer Relationship Specialty Start Date End Date Carlitos Rain MD [facility] [place] [address] PCP - General Family Medicine 02/18/22 documented as of this encounter
--- OUTSIDE RECORDS SUMMARY | 2023-04-16 10:55 | External Medical Summary | Summary of Care ---
Author Name Unknown Organization [facility] Address [address] [place] [address] Phone [phone] Care Team Providers Care Wool Tamper Name Role Phone Carlitos Rain MD Primary Care Provider Reason for Visit * Reason Onset Date Comments Medication Problem 10/29/2022 Encounter Details Date Type Department Care Team Description 10/29/2022 Telephone Pharmacy, [place] [address] [place] [address] [facility] [address] [place] [address] Medication Problem Allergies Active Allergy Reactions Severity [...] of less than 7.0% ([facility]) Use for injections. Injects trulicity once weekly [...] Strip 2 04/29/2022 Active OneTouch Delica Plus Hfettw35JNlybdptmmuz:T ype 2 diabetes mellitus with hemoglobin A1c [...] of less than 7.0% ([facility]) Inject 1.5 mg under the skin once a week. 6 mL 2 10/29/2022 Active documented as of this encounter (statuses as of 10/29/2022) Active Problems Problem Noted Date Generalized osteoarthritis 10/28/2022 Predominant disturbance of emotions 09/07 Food insecurity 08/16/2022 Overview: Per [facility] Protocol Type 2 diabetes mellitus [...] yrs 06/02/2022 Pneumococcal Conjugate Vacci ne, 20-valent ([id number]) 04/14/2022 Pneumococcal Polysaccharide PPV23 (Pneumovax) 07/28/2020 Seasonal [...] Notes * Telephone Encounter - Ashley Boss RPh - 10/29/2022 9:28 AM EDT Rx rerouted to [place] in refill encounter from yesterday. Thanks, Ashley Boss PharmD Clinical Pharmacist [facility] ([facility] (formerly [facility]) [phone] 10/29/2022 9:32 AM * Telephone Encounter - CARIDAD Dueñas - 10/29/2022 9:23 AM EDT Caller's name: Caren [facility] call back number(OFFICE NUMBER FOR ): [phone] Reason for call: Pt requesting to have RX Trulicity sent as mail order instead Thank you, Williams Escalante CPhT Music Manager [facility] 10/29/2022,9:24 AM documented in this encounter Plan of Treatment Upcoming Encounters Date Type Specialty Care Team Description 11/11/2022 Office Visit [facility] [address] [facility] [place] [address] 11/12/2022 Telemedicine Pharmacy [facility] [address] [place] [address] [place] [address] 12/03/2022 Office Visit Pain Medicine Benji Champion CRNP [address] [facility] [place] [address] 12/10/2022 Office Visit Family Medicine Ale Fontaine CRNP [address] [place] [address] Scheduled Procedures Name Priority Associated Diagnoses Date/Ti me COLONOSCOPY FLEXIBLE PROXIMA L DIAGNOSTIC Recall Screening for colon cancer Health Maintenance Due Date Last Done Comments DISCUSS TOBACCO CESSATION (REFER TO SMARTSET #0771) 1975 COVID-19 Vaccine (#1) 04/30/1975 Mammogram 06/10/2019 [...] Foot Exam 06/03/2023 06/02/2022 GFR 09/30/2023 09/29/2022, 08/04/2022, 08/24/2022, Additional history exists Lipid Panel 03/21/2027 [...] filedocumented as of this encounter Care Teams Wool Tamper Relationship Specialty Start Date End Date Carlitos Rain MD [place] [address] PCP - General Family Medicine 02/18/22 documented as of this encounter
--- OUTSIDE RECORDS SUMMARY | 2023-04-16 10:55 | External Medical Summary | Summary of Care ---
Author Name Unknown Organization [facility] Address [address] [place] [address] Phone [phone] Care Team Providers Care Sample Wrapper Name Role Phone Carlitos Rain MD Primary Care Provider Reason for Visit * Reason Onset Date Comments medication change 10/28/2022 Encounter Details Date Type Department Care Team Description 10/28/2022 Telephone Pharmacy, [place] [facility] [address] [facility] [place] [address] [facility] [address] medication change Allergies Active Allergy Reactions Severity [...] hemoglobin A1c goal of less than 7.0% ([facility]) Use for injections. Injects trulicity [...] Strip 2 04/29/2022 Active OneTouch Delica Plus [id number] :Type 2 diabetes mellitus with hemoglobin A1c [...] hemoglobin A1c goal of less than 7.0% ([facility]) Inject 1.5 mg under the [...] emotions 09/07 Food insecurity 08/16/2022 Overview: Per [facility] Protocol Type 2 diabetes mellitus [...] yrs 06/02/2022 Pneumococcal Conjugate Vacci ne, 20-valent ([id number]) 04/14/2022 Pneumococcal Polysaccharide PPV23 (Pneumovax) 07/28/2020 Seasonal [...] Telephone Encounter - Carlitos Rain MD - 10/29/2022 10:35 AM EDT Rxs approved. Thank you so much for your help with Caren. * Telephone Encounter - Dixie Lau, [facility] - 10/28/2022 4:01 PM EDT Patient reviewed by MTM for initial visit today Patient presents with acute on chronic back [...] not in the same t-spine location as previousto the surgery. Her T-Spine MRI appeared stable. Patient is following with Dr Mc for what she expects to be a newer issue in the lumbar area that has presented post stabilization of her t-spine. This follow up is 11/23/22 She has minor relief with current dose of Oxycodone. She is open to any interventions that may provide her with some quality of life as she navigates any follow up surgery needed Treatment options: UDS today, last dose of Oxycodone 8 am today, states stopped medical marijuana a few weeks ago. Aware she must stop all MM to continue opioids 2. Recommend Increase Oxycodone to 5 mg every 6 hours as needed for severe pain She is aware that the goal is not chronic use, but MTM is comfortable with increased use until follow up with Dr Mc 3. Start Lyrica 75 mg QHS x 3 days then increase to 75 mg BID, recheck with MTM in 2 weeks to titrate dose Rx's pended for your approval Thank you, Dixie Lau [facility] Clinical Pharmacist [facility] documented in this encounter Plan of Treatment Upcoming Encounters Date Type Specialty Care Team Description 11/11/2022 Office Visit Pharmacy [facility] [address] [facility] [place] [address] 11/12/2022 Telemedicine Pharmacy [place] [address] [place] [address] 12/03/2022 Office Visit Pain Medicine Benji Champion CRNP [address] [place] [address] [place] [id number] 12/10/2022 Office Visit Family Medicine Ale Fontaine CRNP [address] [facility] [place] [address] Scheduled Procedures Name Priority Associated Diagnoses Date/Ti me COLONOSCOPY FLEXIBLE PROXIMA L DIAGNOSTIC Recall Screening for colon cancer Health Maintenance Due Date Last Done Comments DISCUSS TOBACCO CESSATION (REFER TO SMARTSET #3091) 1975 COVID-19 Vaccine (#1) 04/30/1975 Mammogram 06/10/2019 06/09/2018 Hepatitis B (2 of 3 - 19+ 3-dose series) 06/30/2022 06/02/2022 Influenza Vaccine (FLU shot) (#1) 2022 11/17/2021, 11/18/2020, 11/07/2019, Additional history exists Depression, Most Recent Score >= 10 (china urbina each visit until score < 10) 10/29/2022 [...] Lumbago documented in this encounter Care Teams Sample Wrapper Relationship Specialty Start Date End Date Carlitos Rain MD [address] [place] [address] PCP - General Family Medicine 02/18/22 documented as of this encounter
--- OUTSIDE RECORDS SUMMARY | 2023-04-16 10:55 | External Medical Summary | Summary of Care ---
Author Name Unknown Organization [facility] Address [address] [place] [address] Phone [phone] Care Team Providers Care Admissions Supervisor Name Role Phone Carlitos Rain MD Primary Care Provider Reason for Referral * Evaluate & Treat - Unlimited Visits (Within 3 days (urgent)) - Authorized Specialty Diagnoses / Procedures Referred By Rafiq pendleton Referred To Contact Orthopaedic Surgery / Orthopedics Diagnoses Sprain of right wrist, initial encounter Contusion of right knee, initial encounter Riri England PA-C [address] [place] [address] Referral ID Status Reason Start Date Expiration Date Visits Requested Visits Authorized [id number] Authorized Specialty Services Required 11/08/2022 999 999 [...] 11/08/2022 [facility] [address] [place] [address] Riri England PA-C [address] [place] [address] Sprain of anterior talofibular ligament of right [...] once weekly 100 Each 1 03/26/2022 Active Haozu.comTouch Verio In Vitro Strip (Glucose Blood)Indications:Type 2 diabetes mellitus with hemoglobin A1c goal of less than 8.0% (HCC) Use up to 4 times a day E11.9 400 Strip 2 04/29/2022 Active [employer] Delica Plus Aayhgs34IEmtihcshors:T ype 2 diabetes mellitus with hemoglobin A1c [...] yrs 06/02/2022 Pneumococcal Conjugate Vacci ne, 20-valent ([id number]) 04/14/2022 Pneumococcal Polysaccharide PPV23 (Pneumovax) 07/28/2020 SEASONAL [...] no numbness, tingling or weakness. She states her R knee bothers her the most. It is [...] Tobacco use disorder F17.200 BMI 40.0-44.9, adult ([facility]) Z68.41 Spinal stenosis of lumbar region with radiculopathy M48.061, M54.16 Restless legs syndrome G25.81 Hypertension goal BP (blood pressure) < 140/90 I10 Gastroesophageal reflux disease K21.9 Perennial allergic rhinitis J30.89 Chronic diarrhea K52.9 Migraine without status migrainosus, not intractable G43.909 Type 2 diabetes mellitus with hemoglobin A1c goal of less than 7.0% ([facility]) E11.9 Food insecurity Z59.41 Predominant disturbance of [...] E11.9 400 Strip 2 OneTouch Delica Plus Ilyiep55P Up to 4 times a day E11.9 [...] 1 Dulaglutide 1.5 MG/0.5ML Subcutaneous Solution Pen-injector (TrChogger) Inject 1.5 mg under the skin once [...] performed by Caitlin Mukherjee MD at ENDOSCOPY [facility] EGD, FLEXIBLE, DIAGNOSTIC N/A 06/22/2019 normal/ESOPHAGOGASTRODUODENOSCOPY (EGD), FLEXIBLE, TRANSORAL, DIAGNOSTIC performed by Renae Bowers DO at OR [facility] EGD, FLEXIBLE, DIAGNOSTIC N/A 04/07/2022 biopsies normal/ESOPHAGOGASTRODUODENOSCOPY (EGD), FLEXIBLE, TRANSORAL, DIAGNOSTIC performed by MD Edwin at ENDOSCOPY [facility] LAPAROSCOPY; CHOLECYSTECTOMY N/A 01/29/2019 LAPAROSCOPIC CHOLECYSTECTOMY performed by Nano Lewis DO at OR [facility] SPINAL FUSION, LUMBAR, COMBINED TOTAL ABD [...] from the original note were not included. [address] Understanding a Wrist Sprain A ligament is [...] include any of the following: Prescription or nxmg-cwe-lnvnmih medicines. These help reduce pain and swelling. [...] had surgery. New symptoms Last Reviewed Date: 08/07/202119991139-3788 [employer]. All rights reserved. This information is not intended as a substitute for professional medical care. Always follow your healthcare professional's instructions. * Pt Handout (on AVS) - Riri England PA-C - 11/08/2022 11:55 AM EDT Images from the original note were not included. [id number] Ankle Sprain (Adult) An ankle sprain is [...] thin towel or cloth. You may use pxyc-tsg-ejbgfau pain medicine (NSAIDS or nonsteroidal anti- inflammatory [...] You re-injure your ankle Last Reviewed Date: 03/10/202119994049-0382 [employer]. All rights reserved. This information is not intended as a substitute for professional medical care. Always follow your healthcare professional's instructions. * Pt Handout (on AVS) - Riri England PA-C - 11/08/2022 11:55 AM EDT Images from the original note were not included. 49919 Understanding Bone Bruise (Bone Contusion) A bone [...] symptoms don?t get better. Last Reviewed Date: 06/07/202119990180-0777 [employer]. All rights reserved. This information is not intended as a substitute for professional medical care. Always follow your healthcare professional's instructions. documented in this encounter Plan of Treatment Upcoming Encounters Date Type Specialty Care Team Description 11/11/2022 Office Visit [facility]acy [facility] [address] [facility] [place] [address] 11/12/2022 Telemedicine Pharmacy [facility] [address] [place] [address] [place] [address] 12/03/2022 Office Visit Pain Medicine Benji Champion CRNP [address] [address] 12/10/2022 Office Visit Family Medicine Ale Fontaine CRNP [address] [place] [address] Pending Results Name Type Priority Associated Diagnoses [...] Comments DISCUSS TOBACCO CESSATION (REFER TO SMARTSET #2824) 1975 COVID-19 Vaccine (#1) 04/30/1975 Mammogram 06/10/2019 [...] encounter documented in this encounter Care Teams Admissions Supervisor Relationship Specialty Start Date End Date Carlitos Rain MD [address] [facility] [address] [place] [address] PCP - General Family Medicine 02/18/22 documented as of this encounter"
--- OUTSIDE RECORDS SUMMARY | 2023-04-16 10:55 | External Medical Summary | Summary of Care ---
Author Name Unknown Organization [facility] Address [address] [place] [address] Phone [phone] Care Team Providers Care Diploma Medical Assistant Name Role Phone Carlitos Rain MD Primary Care Provider Reason for Visit * Reason Onset Date Comments Abnormal Lab Results 11/02/2022 Encounter Details Date Type Department Care Team Description 11/02/2022 Telephone Pharmacy, [place] [address] [place] [address] [facility] [place] [address] Abnormal Lab Results Allergies Active Allergy Reactions [...] ([facility]) Use for injections. Injects trulicity [...] Strip 2 04/29/2022 Active OneTouch Delica Plus Xyxxds84PSajybpbpuao:T ype 2 diabetes mellitus with hemoglobin A1c [...] ([facility]) Inject 1.5 mg under the skin [...] yrs 06/02/2022 Pneumococcal Conjugate Vacci ne, 20-valent ([id number]) 04/14/2022 Pneumococcal Polysaccharide PPV23 (Pneumovax) 07/28/2020 Seasonal [...] encounter Miscellaneous Notes * Telephone Encounter - Dixie Lau [facility] - 11/02/2022 12:51 PM EDT UDS 10/28/22: (+) oxycodone/ oxymorphone (+) THC Patient had stated had stopped medical marijuana a few weeks ago, so this low level is not a surprise. She is aware will repeat labs and no THC levels are expected moving forward. Dixie Lau [facility] Clinical Pharmacist [facility] documented in this encounter Plan of Treatment Upcoming Encounters Date Type Specialty Care Team Description 11/11/2022 Office Visit Pharmacy [facility] [address] [facility] [place] [address] 11/12/2022 Telemedicine Pharmacy [facility] [address] [place] [address] 12/03/2022 Office Visit Pain Medicine Benji Champion CRNP [address] [place] [address] [place] [address] 12/10/2022 Office Visit Family Medicine Ale Fontaine CRNP [address] [place] [address] Scheduled Procedures Name Priority Associated Diagnoses Date/Ti me COLONOSCOPY FLEXIBLE PROXIMA L DIAGNOSTIC Recall Screening for colon cancer Health Maintenance Due Date Last Done Comments DISCUSS TOBACCO CESSATION (REFER TO SMARTSET #2450) 1975 COVID-19 Vaccine (#1) 04/30/1975 Mammogram 06/10/2019 [...] Additional history exists Lipid Panel 03/21/2027 03/21/2022, 02/10/2021, 02/19/2019, Additional [...] filedocumented as of this encounter Care Teams Diploma Medical Assistant Relationship Specialty Start Date End Date Carlitos Rain MD [address] [facility] [place] [address] PCP - General Family Medicine 02/18/22 documented as of this encounter
--- OUTSIDE RECORDS SUMMARY | 2023-04-16 10:56 | External Medical Summary | Summary of Care ---
Author Name Unknown Organization [facility] Address [address] [place] [address] Phone [phone] Care Team Providers Care Safety Director Name Role Phone Adelina Rain MD Primary Care Provider Reason for Referral * Medication Prior Authorization - Closed Specialty Diagnoses / Procedures Referred By Contac t Referred To Contact Diagnoses Acute exacerbation of chronic low back pain Adelina Rain MD [address] [place] [address] Referral ID Status Reason Start Date Expiration Date Visits Re quested Visits Authorized [id number] Closed 999 289 Reason for Visit * Reason Onset Date Comments Status Check 10/26/2022 Med request & la b review?, New Pain mgn appt 10.28 scheduled. Encounter Details Date Type Department Care Team Description 10/26/20[facility] [place] [address] Adelina Rain MD [address] [place] [id number] Acute exacerbation of chronic low back pain Allergies Active Allergy Reactions Severity Noted Date Comments Pollen 02/10/2022 documented as of this encounter (statuses as of 10/27/2022) Medications Medication Sig Dispensed Refills Start Date End Date Status cetirizine (ZYRTEC) 10 MG TabletIndications:Se asonal allergies Take 1 Tab by mouth daily. 90 Tab 3 06/09/2018 Active Montelukast Sodium 10 MG Oral Tablet Take by mouth daily. 0 01/07/2021 Active Cyclobenzaprine HCl 10 MG Oral Tablet (Flexeril)Indication s:Spinal stenosis of lumbar region with radiculopathy Take 1 Tablet by mouth in the morning and 1 Tablet at noon and 1 Tablet in the evening. 270 Tablet 3 02/18/2022 Active Alcohol Prep Pads 70 % PadIndications:Type [...] Strip 2 04/29/2022 Active OneTouch Delica Plus Eiwkky84BSdqymhugyee :Type 2 diabetes mellitus with hemoglobin A1c [...] hemoglobin A1c goal of less than 7.0% ([facility]) Inject 1.5 mg under the [...] Pain, Severe. 16 Tablet 0 10/27/2022 Active oxyCODONE HCl 5 MG Oral Tablet (Oxy IR)Indications:Acute exacerbation of chronic low back pain Take 1 Tablet by mouth 2 times a day as needed for Pain, Severe. 16 Tablet 0 10/20/2022 3 Discontinue d(Refill) documented as of this encounter (statuses as of 10/27/2022) Active Problems Problem Noted Date Predominant disturbance of emotions 09/07 Food insecurity 08/16/2022 Overview: Per [facility] Protocol Type 2 diabetes mellitus with hemoglobin A1c goal of less than 7.0% 03/25/2022 BMI 40.0-44.9, adult 02/18/2022 Spinal stenosis of lumbar region with ra diculopathy 02/18/2022 Restless legs syndrome 02/18/2022 Hypertension goal BP (blood pressure) < 140/90 02/18/2022 Gastroesophageal reflux disease 02/18/19 23 Perennial allergic rhinitis 02/18/2022 Chronic diarrhea 02/18/2022 Rheumatoid arthritis involvi ng multiple sites with positive rheumatoid factor 02/18/2022 Migraine without status migrainosus, not intractable [...] as of this encounter (statuses as of 10/27/2022) Resolved Problems Problem Noted Date Resolved Date Nausea without vomiting 02/18/2022 09/08/19 Migraine without status migrainosus, not intract able 02/18/2022 09/07/2022 Acute calculous cholecystitis 01/29/2019 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 10/02/2018 10/13/2018 BMI 45.0-49.9, adult 06/09/2018 03/24/2022 Morbid obesity due to excess calories 06/09/2018 10/02/2018 Hematuria, gross 10/11/2014 06/09/2018 Urgency of urination 10/11/2014 06/09/2018 Urinary frequency 10/11/2014 06/09/2018 documented as of this encounter (statuses as of 10/27/2022) Immunizations Name Administration Dates Next Due Hepatitis B, 20+ yrs 06/02/2022 Pneumococcal Conjugate Vacci ne, 20-valent ([id number]) 04/14/2022 Pneumococcal Polysaccharide PPV23 (Pneumovax) 07/28/2020 Seasonal [...] encounter Miscellaneous Notes * Telephone Encounter - JATINDER Hi - 10/27/2022 1:56 PM EDTSigned Prescriptions: Disp Refills oxyCODONE HCl 5 MG Oral Tablet (Oxy IR) 16 Tab*0 Sig: Take 1 Tablet by mouth 2 times a day as needed for Pain, Severe.Authorizing Provider: ADELINA RAIN-- * Telephone Encounter - Adelina Rain MD - 10/27/2022 1:25 PM EDTSigned Prescriptions: Disp Refills oxyCODONE HCl 5 MG Oral Tablet (Oxy IR) 16 Tab*0 Sig: Take 1 Tablet by mouth 2 times a day as needed for Pain, Severe.Authorizing Provider: ADELINA RAIN-- * Telephone Encounter - Adelina Rain MD - 10/27/2022 1:13 PM EDT RX signed. I see she had appt w/ Dr. Trammell yesterday who did not have any additional recommendations. She should f/u w/ MTM pain as scheduled, as well as Dr. Mc. CBC showed that her wbc was normal, so no concern for infection. Eosinophils are usually up with allergies, but since her WBC is normal, this is not really significant. * Telephone Encounter - Adelina Rain MD - 10/27/2022 1:13 PM EDTSigned Prescriptions: Disp Refills oxyCODONE HCl 5 MG Oral Tablet (Oxy IR) 16 Tab*0 Sig: Take 1 Tablet by mouth 2 times a day as needed for Pain, Severe.Authorizing Provider: ADELINA RAIN--- * Telephone Encounter - JEFERSON Figueroa - 10/27/2022 1:00 PM EDT Patient calling in to check on the status of previous message. Patient Called within 48 hour timeframe. Reminded patient of 48 hour turn-around time. Pt appreciated this and will wait for call back. Pt stated, She now has a new MTM pain management appt on 09.21 @ 3:00 pm. Thank you * Telephone Encounter - Shruthi Godinez RN - 10/26/2022 1:26 PM EDT See today's Patient Message encounter She is specifically inquiring about hematocrit and eosinophil values Concerned that values are different than when she had blood work done last month Worried the blood work might indicate she has an infection in her back Pt is scheduled with interventional pain 12/03, in process of being scheduled with MTM pain Back pain still unbearable, not sleeping, not eating well * Addendum Note - Pita Knowles CMA - 10/26/2022 11:01 AM EDTAddended by: PITA KNOWLES on: 10/26/2022 11:01 AM Modules accepted: Orders * Telephone Encounter - Pita Knowles CMA - 10/26/2022 11:00 AM EDT Please see below msg and advise. Pt received an 8 day supply of oxycodone on 10/20/2022. Pended if needed Did you pend patient's preferred pharmacy and medication before forwarding?yes Pharmacy: [facility] Pending Prescriptions: Disp Refills oxyCODONE HCl 5 MG Oral Tablet (Oxy IR) 16 Tab*0 Sig: Take 1 Tablet by mouth 2 times a day as needed for Pain, Severe. Last Visit: 10/15/2022 (in office), Visit date not found (telemedicine) Next Visit: 12/10/2022 If no future appointments scheduled, and last appointment is greater than a year ago, please schedule patient for a follow-up appointment Last date the medication was ordered: 10/20/22 Is this request for a controlled substance?Yes, What was the last refill date 10/20/22 w/ quantity 16 and dosage 5 mg and Urine Drug Screen Not completed Urine Drug Screen:No results found for this or any previous visit. Patient Phone Numbers Labs: Lab Results Component [...] 10:28 AM HGBA1C 6.0 03/21/2022 06:01 AM * Telephone Encounter - Drea Olvera - 10/26/2022 9:16 AM EDT Pt stating she is in pain and doesn't see pain med till 12.03.2022 She is asking if Dr Rain will fill Oxychodone for her until she sees pain med as she is in a great deal of pain Pt also would like for Dr Rain will take a look a her blood work that was ordered by Dr Mary Please advise and call pt Thank you documented in this encounter Plan of Treatment Upcoming Encounters Date Type Specialty Care Team Description 10/28/2022 Office Visit Rheumatology Moreno Powell MD [address] [place] [address] 10/28/2022 Office Visit Pharmacy [facility] [address] [place] [address] [place] [address] 11/11/2022 Office Visit Pharmacy [place] [facility] [place] [address] [place] [address] [place] [address] 12/03/2022 Office Visit [facility] [address] [facility] [place] [address] 12/10/2022 Office Visit Family Medicine Ale Fontaine CRNP [address] [facility] [place] [address] Scheduled Procedures Name Priority Associated Diagnoses Date/Ti me COLONOSCOPY FLEXIBLE PROXIMA L DIAGNOSTIC Recall Screening for colon cancer Health Maintenance Due Date Last Done Comments DISCUSS TOBACCO CESSATION (REFER TO SMARTSET #2602) 1975 COVID-19 Vaccine (#1) 04/30/1975 Mammogram 06/10/2019 [...] Lumbago documented in this encounter Care Teams Safety Director Relationship Specialty Start Date End Date Adelina Rain MD [address] [facility] [place] [id number] PCP - General Family Medicine 02/18/22 documented as of this encounter
--- OUTSIDE RECORDS SUMMARY | 2023-04-16 10:56 | External Medical Summary | Summary of Care ---
Author Name Unknown Organization [facility] Address [address] [place] [address] Phone [phone] Care Team Providers Care Breaker Hand Name Role Phone Carlitos Rain MD Primary Care Provider Encounter Details Date Type Department Care Team Description 10/26/[address] [facility] [place] [phone] Carlitos Rain MD [facility] [place] [id number] Acute exacerbation of chronic low back pain Allergies Active Allergy Reactions Severity Noted Date Comments Pollen 02/10/2022 documented as of this encounter (statuses as of 10/26/2022) Medications Medication Sig Dispensed Refills Start Date End Date Status cetirizine (ZYRTEC) 10 MG TabletIndications:Seas onal allergies Take 1 Tab by mouth daily. 90 Tab 3 06/09/2018 Active Montelukast Sodium 10 MG Oral Tablet Take by mouth daily. 0 01/07/2021 Active Cyclobenzaprine HCl 10 MG Oral Tablet (Flexeril)Indications: Spinal stenosis of lumbar region with radiculopathy Take [...] Strip 2 04/29/2022 Active OneTouch Delica Plus [id number]:T ype 2 diabetes mellitus with hemoglobin A1c goal of less than 8.0% ([facility]) Up to 4 times a day E11.9 [...] for Pain, Severe. 16 Tablet 0 10/20/2022 Active documented as of this encounter (statuses as of 10/26/2022) Active Problems Problem Noted Date Predominant disturbance [...] as of this encounter (statuses as of 10/26/2022) Resolved Problems Problem Noted Date Resolved Date [...] as of this encounter (statuses as of 10/26/2022) Immunizations Name Administration Dates Next Due Hepatitis B, 20+ yrs 06/02/2022 Pneumococcal Conjugate Vacci ne, 20-valent (Zkwyasv40) 04/14/2022 Pneumococcal Polysaccharide PPV23 (Pneumovax) 07/28/2020 Seasonal [...] have money to get more. Sometimes true 07/ 06/2022 Sex Assigned at Date Recorded Female 10/13/2018 11:40 AM EDT Job Start Date Occupation Industry Not on file Not on file Not on file documented as of this encounter Miscellaneous Notes * Telephone Encounter - Shruthi Godinez RN [...] eating well * Addendum Note - Pita Lombardo CMA - 10/26/2022 11:01 AM EDTAddended by: PITA LOMBARDO on: 10/26/2022 11:01 AM Modules accepted: Orders * Telephone Encounter - Pita Lombardo CMA - 10/26/2022 11:00 AM EDT Please see below msg and advise. Pt received an 8 day supply of oxycodone on 10/20/2022. Pended if needed Did you pend patient's preferred pharmacy and medication before forwarding?yes Pharmacy: [facility] Pending Prescriptions: Disp Refills oxyCODONE HCl [...] 10/28/2022 Office Visit Rheumatology Moreno Powell MD [address] [place] [address] 10/28/2022 Office Visit Pharmacy [facility] [address] [place] [address] [place] [address] 11/11/2022 Office Visit Pharmacy [place], [facility] [address] [place] [address] 12/03/2022 Office Visit Pain Medicine [facility] [address] [facility] [id number] 12/10/2022 Office Visit Family Medicine Ale Fontaine CRNP [address] [place] [id number] Scheduled Procedures Name Priority Associated Diagnoses Date/Ti me COLONOSCOPY FLEXIBLE PROXIMA L DIAGNOSTIC Recall Screening for colon cancer Health Maintenance Due Date Last Done Comments DISCUSS TOBACCO CESSATION (REFER TO SMARTSET #0973) 1975 COVID-19 Vaccine (#1) 04/30/1975 Mammogram 06/10/2019 [...] Lumbago documented in this encounter Care Teams Breaker Hand Relationship Specialty Start Date End Date Carlitos Rain MD [address] [facility] [place] [address] PCP - General Family Medicine 02/18/22 documented as of this encounter
--- OUTSIDE RECORDS SUMMARY | 2023-04-16 10:56 | External Medical Summary | Summary of Care ---
Author Name Unknown Organization [facility] Address [address] [place] [address] Phone [phone] Care Team Providers Care Electric Welder Helper Name Role Phone Adelina Rain MD Primary Care Provider Reason for Referral * Medication Prior Authorization - Closed Specialty Diagnoses / Procedures Referred By Contac t Referred To Contact Diagnoses Acute exacerbation of chronic low back pain Adelina Rain MD [address] [place] [address] Referral ID Status Reason Start Date Expiration Date Visits Re quested Visits Authorized [id number] Closed [phone] Reason for Visit * Reason Onset Date Comments Status Check 10/26/2022 Med request & la b review?, New Pain mgn appt 10.28 scheduled. Encounter Details Date Type Department Care Team Description [facility] [place] [phone] Adelina Rain MD 21 [place] [id number] Acute exacerbation of chronic low back pain [...] Strip 2 04/29/2022 Active OneTouch Delica Plus [id number] :Type 2 diabetes mellitus with hemoglobin A1c [...] goal of less than 7.0% ([facility]) Inject 1.5 mg under the [...] emotions 09/07 Food insecurity 08/16/2022 Overview: Per [facility] Protocol Type 2 diabetes mellitus with [...] yrs 06/02/2022 Pneumococcal Conjugate Vacci ne, 20-valent ([id number]) 04/14/2022 Pneumococcal Polysaccharide PPV23 (Pneumovax) 07/28/2020 Seasonal [...] pharmacy and medication before forwarding?yes Pharmacy: [facility] Pending Prescriptions: Disp Refills oxyCODONE HCl [...] 10/28/2022 Office Visit Rheumatology Moreno Powell MD [address] [place] [address] 10/28/2022 Office Visit Pharmacy [facility] [address] [place] [address] [place] [address] 11/11/2022 Office Visit Pharmacy [facility] [place] [address] [place] [address] [place] [address] 12/03/2022 Office Visit [facility] [address] [facility] [place] [address] 12/10/2022 Office Visit Family Medicine Ale Fontaine CRNP [address] [facility] [place] [address] Scheduled Procedures Name Priority Associated Diagnoses Date/Ti me COLONOSCOPY FLEXIBLE PROXIMA L DIAGNOSTIC Recall Screening for colon cancer Health Maintenance Due Date Last Done Comments DISCUSS TOBACCO CESSATION (REFER TO SMARTSET #4418) 1974 COVID-19 Vaccine (#1) 04/30/1975 Mammogram 06/10/2019 [...] Lumbago documented in this encounter Care Teams Electric Welder Helper Relationship Specialty Start Date End Date Adelina Rain MD [address] [facility] [place] [id number] PCP - General Family Medicine 02/18/22 documented as of this encounter
--- OUTSIDE RECORDS SUMMARY | 2023-04-16 10:56 | External Medical Summary ---
Author Name Unknown Address Unknown Organization K01:[facility] - [address] [facility] [address] Laboratory Report Ordering Provider Test Date Status ANTOINEMARTA RivasT 10/28/2022 15:53:46 Final Drugs that require complianc e testing:

Opioids:
Oxycodone: Quantity 5 mg Date/Time of last Dose 10/28/22 8 am

Benzodiazepines
None

Cutoff Concentrations:
Drug Level
Amphetamines [...] Value Abnormality Reference (Units) Status COMPLIANCE INTERPRETATION 10/28/2022 15:53:46 Based on the medication information provided: Final COMPLIANCE INTERPRETATION 10/28/2022 15:53:46 The positive oxycodone screening result is CONSISTENT with oxycodone use. Confirmatory testing is available upon request. Final COMPLIANCE INTERPRETATION 10/28/2022 15:53:46 The presence of THC metabolite is INCONSISTENT with the information provided. Final Changed Report: Previously r eported on 10/29/2022 at 0903 EDT. See Results History in EPIC for previous versions of the report. Amphetamines, Urine screen 10/28/2022 15:53:46 Negative Negative Final Benzodiazepines, Urine screen 10/28/2022 15:53:46 Negative Negative Final Cannabinoids, Urine screen 10/28/2022 15:53:46 Refer to confirmation results Abnormal Negative Final Cocaine Metabolite, Urine screen 10/28/2022 15:53:46 Negative Negative Final fentaNYL [Presence] in Urine by Screen method 10/28/2022 15:53:46 Negative Negative Final HYDROcodone [Presence] in Urine by Screen method 10/28/2022 15:53:46 Negative Negative Final 9-Jlpbcoaqvh-9,5-Dimeth yl-3,3-Diphenylpyrrolid ine (EDDP) [Presence] in Urine 10/28/2022 15:53:46 Negative Negative Final Opiates, Urine screen 10/28/2022 15:53:46 Negative Negative Final oxyCODONE [Presence] in Urine by Screen method 10/28/2022 15:53:46 Positive Abnormal Negative Final FORENSIC VALID INTERPRETATION 10/28/2022 15:53:46 Normal Final Creatinine, Urine 10/28/2022 15:53:46 67 (mg/dL) Final Performing Location [facility] - [address] [facility] [address]
--- OUTSIDE RECORDS SUMMARY | 2023-04-16 10:56 | External Medical Summary | Summary of Care ---
Author Name Unknown Organization [facility] Address [address] [facility] [place] [address] Phone [phone] Care Team Providers Care Associate Agent Insurance Sales Name Role Phone Carlitos Rain MD Primary Care Provider Reason for Visit * Reason Onset Date Comments Status Check 10/26/2022 Med request & la b review?, New Pain mgn appt 10.28 scheduled. Encounter Details Date Type Department Care Team Description 10/26/2022 Refill [facility] [address] [facility] [place] [address] Carlitos Rain MD 21 [place] [address] Acute exacerbation of chronic low back [...] Strip 2 04/29/2022 Active OneTouch Delica Plus Xryivw55LIardmxsyvkn:T ype 2 diabetes mellitus with hemoglobin A1c [...] emotions 09/07 Food insecurity 08/16/2022 Overview: Per [facility] Protocol Type 2 diabetes mellitus [...] yrs 06/02/2022 Pneumococcal Conjugate Vacci ne, 20-valent (Mcyxdoz91) 04/14/2022 Pneumococcal Polysaccharide PPV23 (Pneumovax) 07/28/2020 Seasonal [...] encounter Miscellaneous Notes * Telephone Encounter - JEFERSON Figueroa - 10/27/2022 1:00 PM EDT Patient calling in to check on the status of previous message. Patient Called within 48 hour timeframe. Reminded patient of 48 hour turn-around time. Pt appreciated this and will wait for call back. Pt stated, She now has a new MTM pain management appt on 10.28 @ 3:00 pm. Thank you * Telephone [...] pharmacy and medication before forwarding?yes Pharmacy: [facility] Pending Prescriptions: Disp Refills oxyCODONE HCl [...] 10/28/2022 Office Visit Rheumatology Moreno Powell MD [address] [place], [place] [address] 10/28/2022 Office Visit Pharmacy [place], [facility] [address] [place] [address] 11/11/2022 Office Visit Pharmacy [facility] [address] [facility] [place] [address] 12/03/2022 Office Visit Pain Medicine Benji Champion CRNP [address] [place] [address] [place] [address] 12/10/2022 Office Visit Family Medicine [facility] [place] [address] Scheduled Procedures Name Priority Associated Diagnoses Date/Ti [...] Lumbago documented in this encounter Care Teams Associate Agent Insurance Sales Relationship Specialty Start Date End Date Carlitos Rain MD [address] [place] [address] PCP - General Family Medicine 02/18/22 documented as of this encounter
--- OUTSIDE RECORDS SUMMARY | 2023-04-16 10:56 | External Medical Summary | Summary of Care ---
Author Name Unknown Organization [facility] Address [address] [place] [address] Phone [phone] Care Team Providers Care Beam Dyer Operator Name Role Phone Carlitos Rain MD Primary Care Provider Reason for Visit * Reason Comments Rheum Follow Up Recheck RA * Evaluate & Treat - Unlimited Visits (Within 10 days (routine)) - Authorized Specialty Diagnoses / Procedures Referred By Rafiq pendleton Referred To Contact Rheumatology Diagnoses Rheumatoid arthritis involving multiple sites with positive rheumatoid factor (HCC) Primary osteoarthritis of both knees Carlitos Rain MD [address] [place] [address] Referral ID Status Reason Start Date Expiration Date Visits Requested Visits Authorized [id number] Authorized Specialty Services Required 10/20/[phone] Encounter Details Date Type Department Care Team Description 10/28/2022 Office Visit Rheumatology [address] [place] [address] Moreno Powell MD [address] [place] [address] [place] [address] Chronic pain syndrome*; Chronic midline low back pain with bilateral sciatica; Generalized osteoarthritis; Fibromyalgia Allergies Active Allergy Reactions Severity Noted Date [...] Strip 2 04/29/2022 Active OneTouch Delica Plus Nckxnp39PCucffqcgfjw:T ype 2 diabetes mellitus with hemoglobin A1c [...] yrs 06/02/2022 Pneumococcal Conjugate Vacci ne, 20-valent ([id number]) 04/14/2022 Pneumococcal Polysaccharide PPV23 (Pneumovax) 07/28/2020 Seasonal [...] Sign Reading Time Taken Comments Blood Pressure - - Pulse - - Temperature 36.4 C (97.5 F) 10/28/2022 10:37 AM E DT Respiratory Rate - - Oxygen Saturation - - Inhaled Oxygen Concentration - - Weight 75.8 kg (167 lb) 10/28/2022 10:37 AM EDT Height - - Body Mass Index 31.55 09/29/2022 10:18 AM EDT documented in this encounter Progress Notes * Moreno Powell MD - 10/28/2022 10:56 AM EDT Subjective: Patient seen today for further follow up evaluation of osteoarthritis. Since the last visit she hasnow had 5 back surgeries - last one was in August this year by Dr Mc. This surgery has not reallyhelped. She is seeing Dr mc again November [...] a lot of meds over the years. Musculoskeletal ROS: . Abnormal: joint pain and back pain . Pain scale (0-10): 10 Other ROS: . Constitutional: fatigue and trouble sleeping . Head headaches . Eyes: normal . Ears, nose, throat, mouth: dry mouth . Cardiovascular: normal . Respiratory: normal . Gastrointestinal: nausea . Genitourinary: normal . Skin: normal . Neurologic: sciatica All other ros reviewed and negative Social History: Social History Tobacco Use Smoking status: Every Day Packs/day: 0.50 Types: Cigarettes Last attempt to quit: 04/09/2019 Years since quittin.5 Smokeless tobacco: Never Tobacco comments: Trying to quit smoking and has been cutting back Substance Use Topics Alcohol use: No Comment: occ Vaping/E-Cigarette Use Vaping/E-Cigarette Use Never User Vaping/E-Cigarette Substances Vaping/E-Cigarette Devices Current Outpatient Medications Medication Sig Dispense Refill cetirizine (ZYRTEC) 10 MG Tablet Take 1 Tab by mouth daily. 90 Tab 3 Montelukast Sodium 10 MG Oral Tablet Take by mouth daily. Cyclobenzaprine HCl 10 MG Oral Tablet (Flexeril) Take 1 Tablet by mouth in the morning and 1 Tabletat noon and 1 Tablet in the evening. 270 Tablet 3 Alcohol Prep Pads 70 % Pad Use for injections. Injects trulicity once weekly 100 Each 1 Pramipexole Dihydrochloride 0.5 MG Oral Tablet Take 1 Tablet by mouth at bedtime. 30 Tablet 5 OneTouch Verio In Vitro Strip (Glucose Blood) Use up to 4 times a day E11.9 400 Strip 2 OneTouch Delica Plus Rdfthc44W Up to 4 times a day E11.9 [...] by mouthin the morning. 90 Tablet 3 busPIRone HCl 5 MG Oral Tablet (Buspar) Take 1 Tablet by mouth in the morning and 1 Tablet at noon and 1 Tablet before bedtime. 90 Tablet 1 Dulaglutide 1.5 MG/0.5ML Subcutaneous Solution Pen-injector (Pigit) Inject 1.5 mg under the skin once a week. 2 mL 11 Topiramate 50 MG Oral Tablet (topAMAX) Take [...] TABLET BY MOUTH DAILY 90 Tablet 3 oxyCODONE HCl 5 MG Oral Tablet (Oxy IR) Take 1 Tablet by mouth 2 times a day as needed for Pain, Severe. 16 Tablet 0 Albuterol Sulfate HFA 108 (90 Base) MCG/ACT Inhalation Aerosol Solution As needed Nicotine 21 MG/24HR Transdermal Patch 24 Hour (Nicoderm CQ) APPLY 1 PATCH DAILY DIRECTED No current facility-administered medications for this visit. Physical Exam: Temp 36.4 C (97.5 F) (Infrared ) | Wt 75.8 kg (167 lb) | BMI 31.55 kg/m | BSA 1.81 m General: alert, healthy, and mild distress from pain Neck: supple, no adenopathy, thyroid normal size, non-tender, without nodularity Lymph: no palpable lymphadenopathy Heart: regular rate & rhythm and no gallops Lungs: clear to auscultation , no rales, wheezes or rhonchi Abdomen: abdomen soft, non-tender, and normal bowel sounds Extremities: no clubbing, no cyanosis Musculoskeletal Exam: She has diffuse soft tissue tenderness over arms, legs and upper back. Did not examine over her surgical site of the lumbar spine at her request as she states it is very tender She has Heberden nodes at most DIPs but most prominent at the right 2nd No synovitis or dactylitis of the hands Bilateral knee replacements noted Assessment: G89.4 Chronic pain syndrome (primary encounter diagnosis) M54.41,M54.42,G89.29 Chronic midline low back pain with bilateral sciatica M15.9 Generalized osteoarthritis (M79.7) Fibromyalgia Her history and exam is consistent with osteoarthritis, chronic pain syndrome from multiple back surgeries as well as fibromyalgia. She does not have rheumatoid arthritis as her workup was normal andher exam findings are not consistent with that. I removed rheumatoid arthritis from her problem list and history. She would best be served with seeing the pain management to help with medication management along with her PCP. She does not need to have rheumatology follow-up at this point as she does not have an autoimmune disease and this was discussed with her. Plan: 1. Reassured her that she does not have rheumatoid arthritis 2. Continue to work with PCP and [facility] pain pharmacy for regimen for her pain 3. Return to Rheumatology as needed Moreno Powell MD Department of Rheumatology documented in this encounter Nursing Notes * Jeff Benavides LPN - 10/28/2022 10:30 AM EDT Chief Complaint Patient presents with Rheum Follow Up Recheck RA documented in this encounter Plan of Treatment Upcoming Encounters Date Type Specialty Care Team Description 10/28/2022 Office Visit [facility]acy [facility] [address] [facility] [place] [address] 11/11/2022 Office Visit Pharmacy [facility] [address] [place] [address] 12/03/2022 Office Visit Pain Medicine Benji Champion CRNP [address] [facility] [place] [address] 12/10/2022 Office Visit Family Medicine Ale Fontaine CRNP [address] [facility] [place] [address] Scheduled Procedures Name Priority Associated Diagnoses Date/Ti [...] as of this encounter Visit Diagnoses Diagnosis Chronic pain syndrome- Primary Chronic midline low back pain with bilateral sciatica Generalized osteoarthritis Generalized osteoarthrosis, unspecified site Fibromyalgia Mylagia and myositis, unspecified documented in this encounter Care Teams Beam Dyer Operator Relationship Specialty Start Date End Date Carlitos Rain MD 21 [place] [id number] PCP - General Family Medicine 02/18/22 documented as of this encounter"
--- OUTSIDE RECORDS SUMMARY | 2023-04-16 10:56 | External Medical Summary | Summary of Care ---
Author Name Unknown Organization [facility] Address [address] [place] [address] Phone [phone] Care Team Providers Care Fabric Worker Foreman Name Role Phone Carlitos Rain MD Primary Care Provider Reason for Visit * Reason Comments Medication Discussion Dosage Adjustment Via Phone (anticoag Cl inic) Encounter Details Date Type Department Care Team Description 10/25/2022 Telemedicine Pharmacy, [facility] [address] [place] [address] Pharmacist2, [facility] [address] [place] [address] Encounter for long-term (current) use of medications* [...] Take by mouth daily. 0 1 Active Cyclobenzaprine HCl 10 MG Oral Tablet (Flexeril)Indication s:Spinal stenosis of lumbar region with radiculopathy Take 1 Tablet by mouth in the morning and 1 Tablet at noon and 1 Tablet in the evening. 270 Tablet 3 3 Active Alcohol Prep Pads 70 % PadIndications:Type 2 diabetes mellitus with hemoglobin A1c goal of less than 7.0% (HCC) Use for injections. Injects trulicity once weekly 100 Each 1 3 Active Pramipexole Dihydrochloride 0.5 MG Oral Tablet Take 1 Tablet by mouth at bedtime. 30 Tablet 5 3 Active OneTouch Verio In Vitro Strip (Glucose Blood)Indications:Ty pe 2 diabetes mellitus with hemoglobin A1c goal of less than 8.0% (HCC) Use up to 4 times a day E11.9 400 Strip 2 3 Active OneTouch Delica Plus [id number] :Type 2 diabetes mellitus with hemoglobin A1c [...] before bedtime. 90 Tablet 1 3 Active Dulaglutide 1.5 MG/0.5ML Subcutaneous Solution Pen-injector (Trulicity)Indicatio ns:Type 2 diabetes mellitus with hemoglobin A1c goal of less than 7.0% (HCC) Inject 1.5 mg under the skin once a week. 2 mL 11 3 Active Topiramate 50 MG Oral Tablet (topAMAX) Take 1 Tablet by mouth in the morning and 1 Tablet before bedtime. 60 Tablet 5 3 Active Atorvastatin Calcium 10 MG Oral Tablet (Lipitor)Indications :Mixed hyperlipidemia TAKE 1 TABLET BY MOUTH DAILY 90 Tablet 3 3 Active Vitamin D3 50 MCG (1999 UT) Oral Capsule TAKE 1 CAPSULE BY MOUTH DAILY 90 Capsule 3 3 Active Lisinopril 5 MG Oral Tablet (Prinivil)Indication s:Essential (primary) hypertension TAKE 1 TABLET BY MOUTH DAILY 90 Tablet 3 3 Active oxyCODONE HCl 5 MG Oral Tablet (Oxy IR)Indications:Acute exacerbation of chronic low back pain Take 1 Tablet by mouth 2 times a day as needed for Pain, Severe. 16 Tablet 0 3 Active Cholecalciferol 50 MCG (1999) Oral Tablet Take 1 Tablet by mouth in the morning. 0 2 10/26/19 23 Discontinued Potassium Chloride Magda ER 10 MEQ Oral Tablet Extended Release Take by mouth 2 times a day. 1 tablet twice daily for 2 weeks. Start date 04/16- given by [facility] 0 10/26/19 23 Discontinued documented as of this encounter (statuses as of 10/26/2022) Active Problems Problem Noted Date Predominant disturbance of emotions 09/07 Food insecurity 08/16/2022 Overview: Per [facility] Protocol Type 2 diabetes mellitus [...] yrs 06/02/2022 Pneumococcal Conjugate Vacci ne, 20-valent ([id number]) 04/14/2022 Pneumococcal Polysaccharide PPV23 (Pneumovax) 07/28/2020 Seasonal [...] as of this encounter Progress Notes * oClt King, [facility] - 10/25/2022 11:17 AM EDT Images from the original note were not included. PHARMACY MTM PROGRESS NOTE CENTRALIZED CLINICAL PHARMACY SERVICES (CCPS) [address] [place] [address] Service Delivery Delivery Method: Phone Outcome: CMR Completed Health Profile Current Conditions: Diabetes, High Blood Pressure, and Pain Drug allergies & side effects: Review of patient's allergies indicates: Allergen Reactions Pollen Med List Home Medications Provider Alcohol Prep Pads 70 % Pad Carlitos Rain MD Use for injections. Injects trulicity once weekly Associated Diagnoses: Type 2 diabetes mellitus with hemoglobin A1c goal of less than 7.0% (HCC) Atorvastatin Calcium 10 MG Oral Tablet (Lipitor) Carlitos Rain MD TAKE 1 TABLET BY MOUTH DAILY Associated Diagnoses: Mixed hyperlipidemia buPROPion HCl ER (XL) 150 MG Oral Tablet Extended Release 24 Hour (Wellbutrin XL) ALBERT Campbell Take 1 Tablet by mouth in the morning. Associated Diagnoses: -- busPIRone HCl 5 MG Oral Tablet (Buspar) Carlitos Rain MD Take 1 Tablet by mouth in the morning and 1 Tablet at noon and 1 Tablet before bedtime. Associated Diagnoses: -- Notes: This prescription was filled on 07/07/2022. Any refills authorized will be placed on file. cetirizine (ZYRTEC) 10 MG Tablet Ml Monroy PA-C Take 1 Tab by mouth daily. Associated Diagnoses: Seasonal allergies Cyclobenzaprine HCl 10 MG Oral Tablet (Flexeril) Carlitos Rain MD Take 1 Tablet by mouth in the morning and 1 Tablet at noon and 1 Tablet in the evening. Associated Diagnoses: Spinal stenosis of lumbar region with radiculopathy Dulaglutide 1.5 MG/0.5ML Subcutaneous Solution Pen-injector (Trulicity) Kirt Davis MD Inject 1.5 mg under the skin once a week. Associated Diagnoses: Type 2 diabetes mellitus with hemoglobin A1c goal of less than 7.0% (HCC) Esomeprazole Magnesium 40 MG Oral Capsule Delayed Release (NexIUM) Carlitos Rain MD Take 1 Capsule by mouth daily. 30-60 min prior to the first main meal of the day. Associated Diagnoses: Gastroesophageal reflux disease, unspecified whether esophagitis present Lisinopril 5 MG Oral Tablet (Prinivil) Carlitos Rain MD TAKE 1 TABLET BY MOUTH DAILY Associated Diagnoses: Essential (primary) hypertension metFORMIN HCl ER 500 MG Oral Tablet Extended Release 24 Hour (Glucophage XR) Carlitos Rain MD Take 1 Tablet by mouth in the morning. Associated Diagnoses: Type 2 diabetes mellitus with hemoglobin A1c goal of less than 8.0% (HCC) Montelukast Sodium 10 MG Oral Tablet History Per Patient Associated Diagnoses: -- Ondansetron 4 MG Oral Tablet Disintegrating ALBERT Campbell Place 1 Tablet on tongue every 8 hours as needed for Nausea. dissolve on tongue. Associated Diagnoses: Nausea without vomiting OneTouch Delica Plus [id number] Carlitos Rain MD Up to 4 times a day E11.9 Associated Diagnoses: Type 2 diabetes mellitus with hemoglobin A1c goal of less than 8.0% (HCC) OneTouch Verio In Vitro Strip (Glucose Blood) Carlitos aRin MD Use up to 4 times a day E11.9 Associated Diagnoses: Type 2 diabetes mellitus with hemoglobin A1c goal of less than 8.0% (HCC) oxyCODONE HCl 5 MG Oral Tablet (Oxy IR) Carlitos Rain MD Take 1 Tablet by mouth 2 times a day as needed for Pain, Severe. Associated Diagnoses: Acute exacerbation of chronic low back pain Pramipexole Dihydrochloride 0.5 MG Oral Tablet ALBERT Campbell Take 1 Tablet by mouth at bedtime. Associated Diagnoses: -- Topiramate 50 MG Oral Tablet (topAMAX) Caitlin López MD Take 1 Tablet by mouth in the morning and 1 Tablet before bedtime. Associated Diagnoses: -- Vitamin D3 50 MCG (1999) Oral Capsule Carlitos Rain MD TAKE 1 CAPSULE BY MOUTH DAILY Associated Diagnoses: -- Cholecalciferol 50 MCG (1999) Oral Tablet History Per Patient Associated Diagnoses: -- Potassium Chloride Magda ER 10 MEQ Oral Tablet Extended Release History Per Patient Associated Diagnoses: -- TIPs 1. Why was the service initiated?: Needs Patient Education - Safe Medication Use (Opioid Therapy) Category of TIP: Needs Patient Education; Targeted medication or medication class: oxycodone What would you like to do with this TIP?: Start a Claim for this TIP; What service was provided? Patient education What was the outcome of the service? Patient education provided - I educated the patient as outlined in the TIP overview.; Date the outcome was determined: 10/25/2022 Severity and Rationale - Please provide patient-specific details about the steps that were taken tocomplete this intervention: n/a Additional notes (optional): n/a Approximate time it took to complete the MTM service: 10 minutes Action Plan None Takeaway Service Information Date CMR was completed: 10/25/2022 Who was the recipient of the CMR service: Patient Was the patient in a intermediate frame tender care (LTC) facility when the CMR was completed? No Pharmacist's availability for questions: Tuesday-Tuesday 8:00am-4:30pm Takeaway Information Will the Patient Takeaway be sent to the Patient or someone else? Patient Language Template for the Patient Takeaway: Belizean Additional notes for the Patient Takeaway (optional): n/a I attest that I have reviewed and updated the patient's conditions, allergies, and medications to the best of my ability. Patient Access: Is patient utilizing [facility]? No; [facility] Is patient utilizing [employer]? Yes Additional Call Notes Colt King [facility] Clinical Pharmacist Centralized Clinical Pharmacy Services (CCPS) 10/25/2022, 11:21 AM documented in this encounter Plan of Treatment Upcoming Encounters Date Type Specialty Care Team Description 10/28/2022 Office Visit Rheumatology Moreno Powell MD [address] [facility], [place] [address] 10/28/2022 Office Visit Pharmacy [place], [facility] [address] [place] [address] 11/11/2022 Office Visit Pharmacy [facility] [address] [facility] [place] [address] 12/03/2022 Office Visit Pain Medicine Benji Champion CRNP [address] [place] [address] [place] [address] 12/10/2022 Office Visit Family Medicine Ale Fontaine CRNP [address] [place] [address] Scheduled Procedures Name Priority Associated Diagnoses Date/Ti [...] medications documented in this encounter Care Teams Fabric Worker Foreman Relationship Specialty Start Date End Date Carlitos Rain MD [address] [facility] [place] [phone] PCP - General Family Medicine 02/18/22 documented as of this encounter
--- OUTSIDE RECORDS SUMMARY | 2023-04-16 10:56 | External Medical Summary | Summary of Care ---
Author Name Unknown Organization [facility] Address [address] [place] [facility] [place] [address] Phone [phone] Care Team Providers Care Basin Tender Name Role Phone Carlitos Rain MD Primary Care Provider Encounter Details Date Type Department Care Team Description 10/26/2022 Hospital Encounter Orthopaedics, [facility] [address] [place] [address] Arrived Allergies Active Allergy Reactions Severity Noted Date [...] Strip 2 04/29/2022 Active OneTouch Delica Plus Ztyrxg72PXedgmbzfilz:T ype 2 diabetes mellitus with hemoglobin A1c [...] emotions 09/07 Food insecurity 08/16/2022 Overview: Per [facility] Protocol Type 2 diabetes mellitus [...] yrs 06/02/2022 Pneumococcal Conjugate Vacci ne, 20-valent ([id number]) 04/14/2022 Pneumococcal Polysaccharide PPV23 (Pneumovax) 07/28/2020 Seasonal [...] 10/28/2022 Office Visit Rheumatology Moreno Powell MD [address] [place] [address] 10/28/2022 Office Visit Pharmacy [facility] [address] [facility] [place] [address] 11/11/[address] [facility] [address] [facility] [place] [address] 12/03/2022 Office Visit Pain Medicine Benji Champion CRNP [address] [facility] [place] [address] 12/10/2022 Office Visit Family Medicine Ale Fontaine CRNP [address] [facility] [place] [address] Scheduled Procedures Name Priority Associated Diagnoses Date/Ti [...] Procedure Name Priority Date/Time Associated Diagnosis Comments XR L SPINE AP AND LATERAL Routine 10/26/2022 8:38 AM EDT Low back pain, unspecified back pain laterality, unspecified chronicity, unspecified whether sciatica present documented in this encounter Results * XR L SPINE AP AND LATERAL (10/26/2022 8:38 AM EDT) Anatomical Region Laterality Modality Vertebra, Lspine Digital Radiogr aphy 10/26/2022 10:3 2 PM EDT Impressions 10/26/2022 10:30 PM EDT IMPRESSION Intact posterior thoracic and lumbar fusions without evidence of hardware complication or failure. Narrative 10/26/2022 10:30 PM EDT EXAM XR L SPINE AP AND LATERAL; [...] thoracic type vertebrae. There is redemonstration of prior posterior fusion of T10-T11 within intervertebral disc spacer [...] Surgical clips in the right upper abdomen. Procedure Note Jacques Felix MD - 10/26/2022 EXAM XR L SPINE AP AND LATERAL; XR T SPINE AP AND LATERAL-10/26/2022 8:38 am HISTORY lower back pain; mid back TECHNIQUE AP and lateral views of the thoracic spine were provided. AP and lateralviews of the lumbar spine were provided. COMPARISON Multiple, most recently MRI thoracic spine dated 10/14/2022 FINDINGS Thoracic spine: There are 12 rib-bearing thoracic type vertebrae. Thereis redemonstration of prior posterior fusion of T10-T11 withinintervertebral disc spacer at the T10-11 level, in unchanged alignment.Hardware is intact. No evidence of hardware loosening or periprostheticfracture. Vertebral body height and alignment are maintained. No acutefracture or subluxation. Bone mineralization is appropriate for age. Nolytic or blastic osseous lesion. Intervertebral disc spaces are preserved.Multilevel facet arthropathy. Lumbar spine: There is redemonstration of a posterior lumbar fusion of K8ibdklpi L5 with intervertebral disc spacers at the L1-2, L2-3, L3-4, andL4-5 levels, in unchanged alignment. Hardware is intact. No evidence ofhardware loosening or periprosthetic fracture. The bilateral sacroiliacjoints are preserved. Surgical clips in the right upper abdomen. IMPRESSION IMPRESSION Intact posterior thoracic and lumbar fusions without evidence of hardwarecomplication or failure. Omega Trammell MD RADIOLOGY (RAD GENERAL) documented in this encounter Care Teams Basin Tender Relationship Specialty Start Date End Date Carlitos Rain MD [address] [facility] [place] [id number] PCP - General Family Medicine 02/18/22 documented as of this encounter
--- OUTSIDE RECORDS SUMMARY | 2023-04-16 10:56 | External Medical Summary | Summary of Care ---
Author Name Unknown Organization [facility] Address [address] [place] [address] Phone [phone] Care Team Providers Care Imaging Tech Name Role Phone Adelina Rain MD Primary Care Provider Reason for Referral * Medication Prior Authorization - Closed Specialty Diagnoses / Procedures Referred By Contac t Referred To Contact Diagnoses Acute exacerbation of chronic low back pain Adelina Rain MD [address] [place] [address] Referral ID Status Reason Start Date Expiration Date Visits Re quested Visits Authorized [id number] Closed [phone] Reason for Visit * Reason Onset Date Comments Status Check 10/26/2022 Med request & la b review?, New Pain mgn appt 10.28 scheduled. Encounter Details Date Type Department Care Team Description 10/26/[address] [facility] [address] [place] [address] Adelina Rain MD [address] [place] [id number] Acute exacerbation of chronic low back pain [...] Strip 2 04/29/2022 Active OneTouch Delica Plus [id number] :Type 2 diabetes mellitus with hemoglobin A1c [...] hemoglobin A1c goal of less than 7.0% ([facility]) Inject 1.5 mg under the [...] emotions 09/07 Food insecurity 08/16/2022 Overview: Per [facility] Protocol Type 2 diabetes mellitus with [...] yrs 06/02/2022 Pneumococcal Conjugate Vacci ne, 20-valent ([id number]) 04/14/2022 Pneumococcal Polysaccharide PPV23 (Pneumovax) 07/28/2020 Seasonal [...] pharmacy and medication before forwarding?yes Pharmacy: [facility] Pending Prescriptions: Disp Refills oxyCODONE HCl [...] 10/28/2022 Office Visit Rheumatology Moreno Powell MD [address] [place] [address] 10/28/2022 Office Visit [facility]acy [facility] [address] [place] [address] [place] [address] 11/11/2022 Office Visit Pharmacy [facility] [place] [address] [place] [address] [place] [address] 12/03/2022 Office Visit [facility] [address] [facility] [place] [address] 12/10/2022 Office Visit Family Medicine Ale Fontaine CRNP [address] [facility] [place] [address] Scheduled Procedures Name Priority Associated Diagnoses Date/Ti me COLONOSCOPY FLEXIBLE PROXIMA L DIAGNOSTIC Recall Screening for colon cancer Health Maintenance Due Date Last Done Comments DISCUSS TOBACCO CESSATION (REFER TO SMARTSET #6325) 1975 COVID-19 Vaccine (#1) 04/30/1975 Mammogram 06/10/2019 [...] Lumbago documented in this encounter Care Teams Imaging Tech Relationship Specialty Start Date End Date Adelina Rain MD [address] [facility] [place] [phone] PCP - General Family Medicine 02/18/22 documented as of this encounter
--- OUTSIDE RECORDS SUMMARY | 2023-04-16 10:56 | External Medical Summary | Summary of Care ---
Author Name Unknown Organization [facility] Address [address] [place] [address] Phone [phone] Care Team Providers Care Spray Rig Operator Name Role Phone Carlitos Rain MD Primary Care Provider Encounter Details Date Type Department Care Team Description [facility] [address] [facility] [place] [address] [facility]itos [facility] [place] [id number] Acute exacerbation of chronic low back pain [...] Strip 2 04/29/2022 Active OneTouch Delica Plus Kltoct77DIugvfvqmxbx:T ype 2 diabetes mellitus with hemoglobin A1c goal of less than 8.0% ([facility]) Up to 4 times a day [...] than 7.0% ([facility]) Inject 1.5 mg under the skin [...] yrs 06/02/2022 Pneumococcal Conjugate Vacci ne, 20-valent ([id number]) 04/14/2022 Pneumococcal Polysaccharide PPV23 (Pneumovax) 07/28/2020 Seasonal [...] encounter Miscellaneous Notes * Addendum Note - Pita Lombardo CMA [...] preferred pharmacy and medication before forwarding?yes Pharmacy: [facility] Pending Prescriptions: Disp Refills oxyCODONE HCl [...] or any previous visit. Patient Phone Numbers [employer] [phone] Labs: Lab Results Component Value Date/Time CREAT [...] 06:01 AM * Telephone Encounter - Drea Lopez Wade - 10/26/2022 9:16 AM EDT Pt stating [...] 10/28/2022 [facility] [address] [facility] [address] 11/11/[address] [facility] [address] [facility] [place] [address] 12/03/2022 Office Visit Pain Medicine Benji Champion CRNP [address] [place], [place] [address] [address] 12/10/2022 Office Visit Family Medicine Ale Fontaine CRNP [address] [facility] [place] [address] Scheduled Procedures Name [...] Lumbago documented in this encounter Care Teams Spray Rig Operator Relationship Specialty Start Date End Date Carlitos Rain MD [address] [facility] [place] [phone] PCP - General Family Medicine 02/18/22 documented as of this encounter
--- OUTSIDE RECORDS SUMMARY | 2023-04-16 10:56 | External Medical Summary | Summary of Care ---
Author Name Unknown Organization [facility] Address [address] [place] [address] Phone [phone] Care Team Providers Care News Reporter Name Role Phone Carlitos Rain MD Primary Care Provider Reason for Visit * Reason Comments Medication Discussion Dosage Adjustment Via Phone (anticoag Cl inic) Encounter Details Date Type Department Care Team Description 10/25/2022 Telemedicine Pharmacy, [facility] [address] [place] [address] Pharmacist2, [facility] [address] [place] [address] Encounter for long-term (current) use of medications* [...] Strip 2 3 Active OneTouch Delica Plus Ilcbez57SQrpcbrqduum :Type 2 diabetes mellitus with hemoglobin A1c [...] 2 weeks. Start date 04/16- given by [facility] 0 10/26/19 23 Discontinued documented as of this encounter (statuses as of 10/26/2022) Active Problems Problem Noted Date Predominant disturbance of emotions 09/07 Food insecurity 08/16/2022 Overview: Per [facility] Protocol Type 2 diabetes mellitus [...] yrs 06/02/2022 Pneumococcal Conjugate Vacci ne, 20-valent ([id number]) 04/14/2022 Pneumococcal Polysaccharide PPV23 (Pneumovax) 07/28/2020 Seasonal [...] this encounter Progress Notes * Colt King, [facility] - 10/25/2022 11:17 AM EDT Images from the original note were not included. PHARMACY MTM PROGRESS NOTE CENTRALIZED CLINICAL PHARMACY SERVICES (CCPS) [address] [facility] [place] [address] Service Delivery Delivery Method: Phone Outcome: CMR [...] 1.5 MG/0.5ML Subcutaneous Solution Pen-injector (Trulicity) Kirt Daivs MD Inject 1.5 mg under the skin [...] Diagnoses: Nausea without vomiting OneTouch Delica Plus Hxafse16A Carlitos Rain MD Up to 4 times a day E11.9 Associated Diagnoses: Type 2 diabetes mellitus with hemoglobin A1c goal of less than 8.0% (HCC) OneTouch Verio In Vitro Strip (Glucose Blood) Carlitos Rain MD Use up to 4 times a [...] service: Patient Was the patient in a intermission coordinator care (LTC) facility when the CMR was completed? No Pharmacist's availability for questions: Tuesday-Tuesday 8:00am-4:30pm Takeaway Information Will the Patient Takeaway be sent to the Patient or someone else? Patient Language Template for the Patient Takeaway: Guatemalan Additional notes for the Patient Takeaway (optional): n/a I attest that I have reviewed and updated the patient's conditions, allergies, and medications to the best of my ability. Patient Access: Is patient utilizing [facility]? No; [facility] Is patient utilizing [employer]? Yes Additional Call Notes Colt King [facility] Clinical Pharmacist Centralized Clinical Pharmacy Services (CCPS) 10/25/2022, 11:21 AM documented in this encounter Plan of Treatment Upcoming Encounters Date Type Specialty Care Team Description 10/28/2022 Office Visit Rheumatology Moreno Powell MD [address] [facility], [place] [address] 10/28/2022 Office Visit Pharmacy [place], [facility] [address] [place] [address] 11/11/2022 Office Visit Pharmacy [facility] [address] [facility] [place] [address] 12/03/2022 Office Visit Pain Medicine Benji Champion CRNP [address] [place] [address] [place] [address] 12/10/2022 Office Visit Family Medicine Ale Fontaine CRNP [address] [place] [address] Scheduled Procedures Name Priority Associated Diagnoses Date/Ti [...] medications documented in this encounter Care Teams News Reporter Relationship Specialty Start Date End Date Carlitos Rain MD [address] [facility] [place] [phone] PCP - General Family Medicine 02/18/22 documented as of this encounter
--- OUTSIDE RECORDS SUMMARY | 2023-04-16 10:56 | External Medical Summary | Summary of Care ---
Author Name Unknown Organization [facility] Address [address] [place] [address] Phone [phone] Care Team Providers Care Power Shovel Mechanic Name Role Phone Carlitos Rain MD Primary Care Provider Encounter Details Date Type Department Care Team Description 10/[facility] [facility] [place] [address] Carlitos Rain MD [address] [place] [address] Allergies Active Allergy Reactions Severity Noted [...] hemoglobin A1c goal of less than 7.0% ([facility]) Use for injections. Injects trulicity [...] Strip 2 04/29/2022 Active OneTouch Delica Plus Lyftor69TDmslpyetrlj:T ype 2 diabetes mellitus with hemoglobin A1c [...] yrs 06/02/2022 Pneumococcal Conjugate Vacci ne, 20-valent ([id number]) 04/14/2022 Pneumococcal Polysaccharide PPV23 (Pneumovax) 07/28/2020 Seasonal [...] Miscellaneous Notes * Telephone Encounter - Drea Olvera - [...] 10/28/2022 Office Visit Rheumatology Moreno Powell MD [address] [place] [address] 11/11/2022 Office Visit Pharmacy [facility] [address] [facility] [place] [address] 12/03/2022 Office Visit Pain Medicine [facility] [address] [facility] [place] [address] 12/10/2022 Office Visit Family Medicine Ale Fontaine CRNP [address] [facility] [place] [address] Scheduled Procedures Name Priority Associated Diagnoses Date/Ti me COLONOSCOPY FLEXIBLE PROXIMA L DIAGNOSTIC Recall Screening for colon cancer Health Maintenance Due Date Last Done Comments DISCUSS TOBACCO CESSATION (REFER TO SMARTSET #9172) 1975 COVID-19 Vaccine (#1) 04/30/1975 Mammogram 06/10/2019 [...] filedocumented as of this encounter Care Teams Power Shovel Mechanic Relationship Specialty Start Date End Date Carlitos Rain MD 21 [place] [id number] PCP - General Family Medicine 02/18/22 documented as of this encounter
--- OUTSIDE RECORDS SUMMARY | 2023-04-16 10:56 | External Medical Summary | Summary of Care ---
Author Name Unknown Organization [facility] Address [address] [place] [address] Phone [phone] Care Team Providers Care Hydroelectric Systems Technician Name Role Phone Carlitos Rain MD Primary Care Provider Encounter Details Date Type Department Care Team Description 10/26/2022 Patient Reported Data Patient Survey Ortho OBERD Allergies Active Allergy Reactions Severity Noted Date [...] goal of less than 7.0% ([facility]) Use for injections. Injects trulicity [...] Strip 2 04/29/2022 Active OneTouch Delica Plus Gafxjx51SAkditwtifoc:T ype 2 diabetes mellitus with hemoglobin A1c [...] yrs 06/02/2022 Pneumococcal Conjugate Vacci ne, 20-valent (Snyyoxg10) 04/14/2022 Pneumococcal Polysaccharide PPV23 (Pneumovax) 07/28/2020 Seasonal [...] 10/28/2022 Office Visit Rheumatology Moreno Powell MD [address] [facility] [place] [address] 10/28/2022 Office Visit [facility]acy [facility] [address] [place] [address] 11/11/2022 Office Visit [facility] [address] [place] [address] 12/03/2022 Office Visit Pain Medicine Benji Champion CRNP [address] [facility] [place] [phone] 12/10/2022 Office Visit Family Medicine Ale Fontaine CRNP 21 [place] [address] Scheduled Procedures Name Priority Associated Diagnoses Date/Ti [...] filedocumented as of this encounter Care Teams Hydroelectric Systems Technician Relationship Specialty Start Date End Date Carlitos Rain MD [facility] [place] [address] PCP - General Family Medicine 02/18/22 documented as of this encounter
--- OUTSIDE RECORDS SUMMARY | 2023-04-16 10:56 | External Medical Summary | Summary of Care ---
Author Name Unknown Organization [facility] Address [address] [place] [address] Phone [phone] Care Team Providers Care Dialysis Social Worker Name Role Phone Carlitos Rain MD Primary Care Provider Reason for Visit * Reason Onset Date Comments Referral 10/21/2022 [facility] Pain Encounter Details Date Type Department Care Team Description 10/21/2022 Telephone Pharmacy Call Center [address] [place] [address] [facility] [address] [facility] [place] [address] Referral ([facility] Pain) Allergies Active Allergy Reactions Severity Noted Date [...] Strip 2 3 Active OneTouch Delica Plus [id number] :Type 2 diabetes mellitus with hemoglobin A1c [...] Tablet 0 3 Active Cholecalciferol 50 MCG (1999 [place]) Oral Tablet Take 1 Tablet by mouth in the morning. 0 2 10/26/19 23 Discontinued Potassium Chloride Magda ER 10 MEQ Oral Tablet Extended Release Take by mouth 2 times a day. 1 tablet twice daily for 2 weeks. Start date 04/16- given by [place] 0 10/26/19 23 Discontinued documented [...] yrs 06/02/2022 Pneumococcal Conjugate Vacci ne, 20-valent (Rxijrza76) 04/14/2022 Pneumococcal Polysaccharide PPV23 (Pneumovax) 07/28/2020 Seasonal [...] encounter Miscellaneous Notes * Telephone Encounter - Renae Torres silver buffer - 10/26/2022 9:46 AM EDT Will contact patient via WQ referral as is [facility] protocol. Thank you, Renae Torres Bucket Pusher [facility] ([facility]) 10/26/2022,9:46 AM * Telephone Encounter - Shruthi Godinez RN - 10/26/2022 9:09 AM EDT MyG received from pt, asking about MTM pain appt Please contact pt to schedule * Telephone Encounter - Dixie Lau RPh - 10/25/2022 9:08 AM EDT Referral received and reviewed. Reason for referral: Pain Please Schedule patient. Referring provider: Carlitos Rain MD Initial appt length: 60 min Appointment type indicated: Pt Prefence- Inperson or Video Preferred Clinic for Appointment: Kelsie Lau RPh 10/25/2022, 9:08 AM * Telephone Encounter - CARIDAD Stock - 10/21/2022 12:56 PM EDT Procedure: PHARMACIST MEDS THERAPY MGMT REFERRAL OP Status: Needs Scheduling Requested appt date: Authorizing: Carlitos Rain MD in [facility] Referral: [id number] (Authorized) Priority: Within 10 days (routine) Diagnosis: Chronic pain syndrome [G89.4] Comments Pharmacist Medication Therapy Management: Minimum frequency patient should be seen in person for medication management: as appropriate per clinical condition and patient status By my signature, I understand that my patient Caren Johnson will have her medication therapy managed by the [facility] Medication Therapy Disease Management Clinic ([facility]) per established policies, procedures, and protocols. I also certify that this referral may serve as an initiation of service for the management of drug therapy in the above noted patient. [facility] providers will be responsible for scheduling patient visits, obtaining appropriate laboratory studies, and adjusting medication management therapy per patient's need, in addition to those roles spelled out in the clinic policy, procedures, and drug management protocols. I understand that the service provided by the [facility] is voluntary and have informed patient that they can refuse the service at their discretion. I am aware that the [facility] Clinic will provide me with a copy of the patient encounter via my [employer]. I authorize the [facility] Clinic to carry out these activities on my behalf. I consider this program to be a necessary part of the patient's medical care. Carlitos Rain MD Order Specific Questions Referral Priority Within 10 days (routine) Department: Primary Care Reason for Referral: Pain Pain Diagnosis: Back pain Osteoarthritis Chronic Pain Syndrome Further Details of Diagnosis: chronic back pain; failed surgeries w/ Dr. Mc. Has 2nd opinion appt w/ Dr. Trammell Pain Treatment Options: Opioids and/or Non-opioids Does patient have a signed CARRI? This is required for patients on opioids Yes. Acute Has patient completed a Urine Drug Screen in the past 3 months? This is required for patients on opioids No Pain Treatment Goal: Med Optimization documented in this encounter Plan of Treatment Upcoming Encounters Date Type Specialty Care Team Description 10/28/2022 Office Visit Rheumatology Moreno Powell MD [address] [place] [address] 11/11/[address] [facility] [place] [address] [place] [address] 12/03/2022 Office Visit Pain Medicine [facility] [address] [facility] [place] [phone] 12/10/2022 Office Visit Family Medicine Ale Fontaine CRNP [address] [facility] [place] [id number] Scheduled Procedures Name Priority Associated Diagnoses Date/Ti me COLONOSCOPY FLEXIBLE PROXIMA L DIAGNOSTIC Recall Screening for colon cancer Health Maintenance Due Date Last Done Comments DISCUSS TOBACCO CESSATION (REFER TO SMARTSET #6870) 1975 COVID-19 Vaccine (#1) 04/30/1975 Mammogram 06/10/2019 [...] filedocumented as of this encounter Care Teams Dialysis Social Worker Relationship Specialty Start Date End Date Carlitos Rain MD [address] [facility] [place] [phone] PCP - General Family Medicine 02/18/22 documented as of this encounter
--- OUTSIDE RECORDS SUMMARY | 2023-04-16 10:56 | External Medical Summary | Summary of Care ---
Author Name Unknown Organization [facility] Address [address] [place] [facility] [place] [address] Phone [phone] Care Team Providers Care Manager Poker Name Role Phone Carlitos Rain MD Primary Care Provider Encounter Details Date Type Department Care Team Description 10/26/2022 Hospital Encounter Orthopaedics, Electric Kelsie Gomez [address] [place] [address] Arrived Allergies Active Allergy Reactions Severity [...] of less than 7.0% ([facility]) Use for injections. Injects trulicity once weekly [...] Strip 2 04/29/2022 Active OneTouch Delica Plus Nejmdx37IOxnlmkxngho:T ype 2 diabetes mellitus with hemoglobin A1c [...] emotions 09/07 Food insecurity 08/16/2022 Overview: Per [facility] Protocol Type 2 diabetes mellitus [...] yrs 06/02/2022 Pneumococcal Conjugate Vacci ne, 20-valent (Maswxyi62) 04/14/2022 Pneumococcal Polysaccharide PPV23 (Pneumovax) 07/28/2020 Seasonal [...] 10/28/2022 Office Visit Rheumatology Moreno Powell MD [address] [place] [address] 10/28/2022 Office Visit Pharmacy [facility] [address] [place] [address] 11/11/2022 Office Visit Pharmacy [facility] [address] [facility] [place] [address] 12/03/2022 Office Visit Pain Medicine Benji Champion CRNP [address] [facility] [place] [address] 12/10/2022 Office Visit Family Medicine Ale Fontaine CRNP [address] [place] [address] Scheduled Procedures Name Priority Associated Diagnoses Date/Ti [...] Name Priority Date/Time Associated Diagnosis Comments XR T SPINE AP AND LATERAL Routine 10/26/2022 8:38 AM EDT Mid back pain, chronic documented in this encounter Results * XR T SPINE AP AND LATERAL (10/26/2022 8:38 AM EDT) Anatomical Region Laterality Modality Vertebra, Spine, Tspine Digital Radiography 10/26/2022 10:3 2 PM EDT Impressions 10/26/2022 [...] redemonstration of a posterior lumbar fusion of T6hajanyk L5 with intervertebral disc spacers at the L1-2, L2-3, L3-4, andL4-5 levels, in unchanged alignment. Hardware is intact. No evidence ofhardware loosening or periprosthetic fracture. The bilateral sacroiliacjoints are preserved. Surgical clips in the right upper abdomen. IMPRESSION IMPRESSION Intact posterior thoracic and lumbar fusions without evidence of hardwarecomplication or failure. Omega Trammell MD RADIOLOGY ([facility]) documented in this encounter Care Teams Manager Poker Relationship Specialty Start Date End Date Carlitos Rain MD [address] [place] [id number] PCP - General Family Medicine 02/18/22 documented as of this encounter
--- OUTSIDE RECORDS SUMMARY | 2023-04-16 10:56 | External Medical Summary | Summary of Care ---
Author Name Unknown Organization [facility] Address [address] [place] [address] Phone [phone] Care Team Providers Care Founder Chairman And Chief Creative Officer Name Role Phone Adelina Rain MD Primary Care Provider Reason for Referral * Medication Prior Authorization - Closed Specialty Diagnoses / Procedures Referred By Contac t Referred To Contact Diagnoses Acute exacerbation of chronic low back pain Adelina Rain MD [address] [place] [address] Referral ID Status Reason Start Date Expiration Date Visits Re quested Visits Authorized [id number] Closed [phone] Reason for Visit * Reason Onset Date Comments Status Check 10/26/2022 Med request & la b review?, New Pain mgn appt 10.28 scheduled. Encounter Details Date Type Department Care Team Description [facility] [place] [address] Adelina Rain MD [address] [place] [phone] Acute exacerbation of chronic low back pain [...] Strip 2 04/29/2022 Active OneTouch Delica Plus Lqsbwc30YWuxtrxsnnsn :Type 2 diabetes mellitus with hemoglobin A1c [...] of less than 7.0% ([facility]) Inject 1.5 mg under the skin [...] emotions 09/07 Food insecurity 08/16/2022 Overview: Per [facility] Protocol Type 2 diabetes mellitus with [...] yrs 06/02/2022 Pneumococcal Conjugate Vacci ne, 20-valent (Ocntwdf71) 04/14/2022 Pneumococcal Polysaccharide PPV23 (Pneumovax) 07/28/2020 Seasonal [...] pharmacy and medication before forwarding?yes Pharmacy: [facility] Pending Prescriptions: Disp Refills oxyCODONE HCl [...] or any previous visit. Patient Phone Numbers [employer] [phone] Labs: Lab Results Component Value Date/Time CREAT [...] 10/28/2022 Office Visit Rheumatology Moreno Powell MD [address] [facility], [place] [address] 10/28/2022 Office Visit [facility]acy [facility] [address] [place] [address] 11/11/2022 Office Visit Pharmacy [facility] [address] [place] [address] 12/03/2022 Office Visit Pain Medicine Benji Champion CRNP [address] [facility] [place] [address] 12/10/2022 Office Visit Family Medicine Ale Fontaine CRNP [address] [place] [address] Scheduled Procedures Name Priority Associated Diagnoses Date/Ti [...] Lumbago documented in this encounter Care Teams Founder Chairman And Chief Creative Officer Relationship Specialty Start Date End Date Adelina Rain MD [address] [facility] [address] [place] [phone] PCP - General Family Medicine 02/18/22 documented as of this encounter
--- OUTSIDE RECORDS SUMMARY | 2023-04-16 10:57 | External Medical Summary | Summary of Care ---
Author Name Unknown Organization [facility] Address [address] [place] [address] Phone [phone] Care Team Providers Care Senior Oracle Database Developer Name Role Phone Carlitos Rain MD Primary Care Provider Reason for Visit * Reason Comments Medication Discussion Dosage Adjustment Via Phone (anticoag Cl inic) Encounter Details Date Type Department Care Team Description 10/25/2022 Telemedicine Pharmacy, [facility] [address] [place] [address] Pharmacist2, [facility] [address] [place] [address] Encounter for long-term (current) use of medications* Allergies Active Allergy Reactions Severity Noted Date Comments Pollen 02/10/2022 documented as of this encounter (statuses as of 10/25/2022) Medications Medication Sig Dispensed Refills Start Date [...] Strip 2 3 Active OneTouch Delica Plus Diaodk65JDaldubcqdhr :Type 2 diabetes mellitus with hemoglobin A1c [...] 2 weeks. Start date 04/16- given by [facility] 0 10/26/19 23 Discontinued documented as of this encounter (statuses as of 10/25/2022) Active Problems Problem Noted Date Predominant disturbance of emotions 09/07 Food insecurity 08/16/2022 Overview: Per [facility] Protocol Type 2 diabetes mellitus [...] as of this encounter (statuses as of 10/25/2022) Resolved Problems Problem Noted Date Resolved Date [...] as of this encounter (statuses as of 10/25/2022) Immunizations Name Administration Dates Next Due Hepatitis B, 20+ yrs 06/02/2022 Pneumococcal Conjugate Vacci ne, 20-valent ([id number]) 04/14/2022 Pneumococcal Polysaccharide PPV23 (Pneumovax) 07/28/2020 Seasonal [...] this encounter Progress Notes * Colt King, [facility] - 10/25/2022 11:17 AM EDT Images from the original note were not included. PHARMACY MTM PROGRESS NOTE [facility] [address] [place] [address] Service Delivery Delivery Method: Phone Outcome: CMR [...] Diagnoses: Nausea without vomiting OneTouch Delica Plus [id number] Carlitos Rain MD Up to 4 times [...] service: Patient Was the patient in a technician terminal and repeater care (LTC) facility when the CMR was completed? No Pharmacist's availability for questions: Tuesday-Tuesday 8:00am-4:30pm Takeaway Information Will the Patient Takeaway be sent to the Patient or someone else? Patient Language Template for the Patient Takeaway: Anguill[place] Additional notes for the Patient Takeaway (optional): n/a I attest that I have reviewed and updated the patient's conditions, allergies, and medications to the best of my ability. Patient Access: Is patient utilizing [employer] [facility]? No; [facility] Is patient utilizing [employer]? Yes Additional Call Notes Colt King [facility] Clinical Pharmacist [facility] ([facility]) 10/25/2022, 11:21 AM documented in this encounter Plan of Treatment Upcoming Encounters Date Type Specialty Care Team Description 10/28/2022 Office Visit Orthopedic Surgery Omega Trammell MD [address] [place] [phone] 11/11/2022 Office Visit Pharmacy [facility] [address] [place] [address] 12/10/2022 Office Visit Family Medicine Ale Fontaine CRNP [address] [place] [phone] 07/08/2023 Office Visit Rheumatology Moreno Powell MD [address] [place] [address] Scheduled Procedures Name Priority Associated Diagnoses Date/Ti [...] medications documented in this encounter Care Teams Senior Oracle Database Developer Relationship Specialty Start Date End Date Carlitos Rain MD [address] [place] [address] PCP - General Family Medicine 02/18/22 documented as of this encounter
--- OUTSIDE RECORDS SUMMARY | 2023-04-16 10:57 | External Medical Summary | Summary of Care ---
Author Name Unknown Organization [facility] Address [address] [place] [address] Phone [phone] Care Team Providers Care Lead Blender Name Role Phone Carlitos Rain MD Primary Care Provider Reason for Referral * Evaluate & Treat - Unlimited Visits (Within 10 days (routine)) - Authorized Specialty Diagnoses / Procedures Referred By Contac t Referred To Contact Pharmacist / Pharmacy Diagnoses Chronic pain syndrome Carlitos Rain MD [address] [place] [address] Referral ID Status Reason Start Date Expiration Date Visits Requested Visits Authorized [id number] Authorized Specialty Services Required 10/20/2022 99 99 Question Answer Referral Priority Within 10 days (routine) Department: Primary Care Reason for Referral: Pain Pain Diagnosis: Back pain, Osteoarthritis, Chronic Pain Syndrome Further Details of Diagnosis: chronic back pain; failed surgeries w/ Dr. Mc. Has 2nd opinion appt w/ Dr. Trammell Pain Treatment Options: Opioids and/or Non-opioids Does patient have a signed CARRI? This is required for patients on opioids Yes - Acute Has patient completed a Urine Drug Screen in the past 3 months? This is required for patients on opioids No Pain Treatment Goal: Med Optimization Comments Pharmacist Medication Therapy Management: Minimum frequency patient should be seen in person for medication management: as appropriate per clinical condition and patient status By my signature, I understand that my patient Caren Johnson will have her medication therapy managed by the [facility] ([facility]) per established policies, procedures, and protocols. I also certify that this referral may serve as an initiation of service for the management of drug therapy in the above noted patient. [facility] providers will be responsible for scheduling patient visits, obtaining appropriate laboratory studies, and adjusting medication management therapy per patient's need, in addition to those roles spelled out in the clinic policy, procedures, and drug management protocols. I understand that the service provided by the [facility] Clinic is voluntary and have informed patient that they can refuse the service at their discretion. I am aware that the [facility] will provide me with a copy of the patient encounter via my [employer]. I authorize the [facility] to carry out these activities on my behalf. I consider this program to be a necessary part of the patient's medical care. Carlitos Rain MD * Evaluate & Treat - Unlimited Visits (Within 10 days (routine)) - Authorized Specialty Diagnoses / Procedures Referred By Rafiq pendleton Referred To Contact Rheumatology Diagnoses Rheumatoid arthritis involving multiple sites with positive rheumatoid factor (HCC) Primary osteoarthritis of both knees Carlitos Rain MD [address] [facility] [place] [address] Referral ID Status Reason Start Date Expiration Date Visits Requested Visits Authorized [id number] Authorized Specialty Services Required 10/20/2022 999 999 Question Answer Referral Priority Within 10 days (routine) Reason for referral: Osteoarthritis - and RA Did you try PT or standard pain control measures? Yes Reason for Visit * Reason Onset Date Comments case management 10/20/2022 Encounter Details Date Type Department Care Team Description 10/20/2022 Project Scheduler Telephone [facility] [address] [place] [address] Shruthi Godinez, LUZ [address] [place] [address] case management Allergies Active Allergy Reactions Severity Noted Date Comments Pollen 02/10/2022 documented as of this encounter (statuses as of 10/20/2022) Medications Medication Sig Dispensed Refills Start Date End Date Status cetirizine (ZYRTEC) 10 MG TabletIndications:Sea huang allergies Take 1 Tab by mouth daily. 90 Tab 3 06/09/2018 Active Montelukast Sodium 10 MG Oral Tablet Take by mouth daily. 0 01/07/2021 Active Cholecalciferol 50 MCG (2000 UT) Oral Tablet Take 1 Tablet by mouth in the morning. 0 04/27/2021 Active Cyclobenzaprine HCl 10 MG Oral Tablet (Flexeril)Indications :Spinal stenosis of lumbar region with radiculopathy Take [...] at bedtime. 30 Tablet 5 04/14/2022 Active Potassium Chloride Magda ER 10 MEQ Oral Tablet Extended Release Take by mouth 2 times a day. 1 tablet twice daily for 2 weeks. Start date 04/16- given by [facility] 0 Active OneTouch Verio In Vitro Strip (Glucose Blood)Indications:Typ e 2 diabetes mellitus with hemoglobin A1c goal of less than 8.0% (HCC) Use up to 4 times a day E11.9 400 Strip 2 04/29/2022 Active OneTouch Delica Plus [id number]: Type 2 diabetes mellitus with hemoglobin A1c [...] as of this encounter (statuses as of 10/20/2022) Active Problems Problem Noted Date Predominant disturbance of emotions 09/07 Food insecurity 08/16/2022 Overview: Per [facility] Protocol Type 2 diabetes mellitus with [...] as of this encounter (statuses as of 10/20/2022) Resolved Problems Problem Noted Date Resolved Date [...] as of this encounter (statuses as of 10/20/2022) Immunizations Name Administration Dates Next Due Hepatitis B, 20+ yrs 06/02/2022 Pneumococcal Conjugate Vacci ne, 20-valent ([id number]) 04/14/2022 Pneumococcal Polysaccharide PPV23 (Pneumovax) 07/28/2020 Seasonal [...] Telephone Encounter - Carlitos Rain MD - 10/20/2022 4:42 PM EDT Referrals signed. * Telephone Encounter - Shruthi Godinez RN - 10/20/2022 4:04 PM EDT SITUATION: Requesting referral for [facility] pain clinic and arthritis specialist BACKGROUND: PMH of diabetes, HTN, RA, osteoarthritis S/p T-10-T11 decompression and fusion 09/02/22 [address] [facility] by Dr. Mc with UOC Seen by Dr. Rain 10/15/22 for increased back pain ASSESSMENT: Interested in seeing [facility] pain clinic to discuss pain med options Has ongoing chronic pain, also having acute exacerbation of chronic back pain Reviewed that [facility] deals with only chronic pain, verbalized understanding Requesting to see arthritis specialist Last seen 02/26/22 by rheum, states she was told nothing was wrong with her Fingers are getting worse, has lumps in them States she saw Dr. Nuñez briefly when at appt for her mother and he recommended she schedule an appt with him RECOMMENDATION: Dr. Rain, [facility] pain and rheum referrals pended, please sign if agreeable Shruthi Godinez RN Family Practice, [place] [address] [facility] [address] documented in this encounter Plan of Treatment Upcoming Encounters Date Type Specialty Care Team Description 10/25/2022 Telemedicine Pharmacy [address] [place] [address] [address] [place] [address] 10/28/2022 Office Visit Orthopedic Surgery Omega Trammell MD [address] [place] [address] 11/11/2022 Office Visit Pharmacy [facility] [address] [facility] [place] [address] 12/10/2022 Office Visit Family Medicine Ale Fontaine CRNP 21 [facility] [place] [address] Scheduled Procedures Name Priority Associated Diagnoses Date/Ti me COLONOSCOPY FLEXIBLE PROXIMA L DIAGNOSTIC Recall Screening for colon cancer Scheduled Referrals Name Type Priority Associated Diagnoses Orde r Schedule RHEUMATOLOGY REFERRAL OP Referral Within 10 days (routine) Rheumatoid arthritis involving multiple sites with positive rheumatoid factor (HCC) Primary osteoarthritis of both knees Ordered: 10/20/2022 PHARMACIST MEDS THERAPY MGMT REFERRAL OP Referral Within 10 days (routine) Chronic pain syndrome Ordered: 10/20/2022 Health Maintenance Due Date Last Done Comments [...] as of this encounter Visit Diagnoses Diagnosis Rheumatoid arthritis involving multiple sites with positive rheumatoid factor (HCC)- Primary Primary osteoarthritis of both knees Primary localized osteoarthrosis, lower leg Chronic pain syndrome documented in this encounter Care Teams Lead Blender Relationship Specialty Start Date End Date Carlitos Rain MD 21 [facility] [place] [address] PCP - General Family Medicine 02/18/22 documented as of this encounter
--- OUTSIDE RECORDS SUMMARY | 2023-04-16 10:57 | External Medical Summary | Summary of Care ---
Author Name Unknown Organization [facility] Address [address] [place] [address] Phone [phone] Care Team Providers Care Sales Coach Name Role Phone Carlitos Rain MD Primary Care Provider Reason for Referral * Evaluate & Treat - Unlimited Visits (Within 10 days (routine)) - Authorized Specialty Diagnoses / Procedures Referred By Contac t Referred To Contact Pharmacist / Pharmacy Diagnoses Chronic pain syndrome Carlitos Rain MD [address] [place] [address] Referral ID Status Reason Start Date Expiration Date Visits Requested Visits Authorized [id number] Authorized Specialty Services Required 10/20/2022 99 99 [...] have her medication therapy managed by the [facility] Medication Therapy Disease Management Clinic ([facility]) per established policies, procedures, and protocols. I also certify that this referral may serve as an initiation of service for the management of drug therapy in the above noted patient. [facility] providers will be responsible for scheduling patient visits, obtaining appropriate laboratory studies, and adjusting medication management therapy per patient's need, in addition to those roles spelled out in the clinic policy, procedures, and drug management protocols. I understand that the service provided by the [facility] Clinic is voluntary and have informed patient that they can refuse the service at their discretion. I am aware that the [facility] will provide me with a copy of the patient encounter via my Moped InFoodily. I authorize the [facility] to carry out these activities on my [...] of both knees Carlitos Rain MD [address] [facility] [place] [address] Referral ID Status Reason Start Date Expiration Date Visits Requested Visits Authorized [id number] Authorized Specialty Services Required 10/20/2022 999 999 Question Answer Referral Priority Within 10 days (routine) Reason for referral: Osteoarthritis - and RA Did you try PT or standard pain control measures? Yes Reason for Visit * Reason Onset Date Comments case management 10/20/2022 Encounter Details Date Type Department Care Team Description 10/20/2022 Hand Plate Stacker Telephone [facility] [address] [place] [address] Shruthi Godinez, LUZ [address] [place] [address] case management Allergies Active Allergy [...] 2 weeks. Start date 04/16- given by [facility] 0 Active OneTouch Verio In Vitro Strip (Glucose Blood)Indications:Typ e 2 diabetes mellitus with hemoglobin A1c goal of less than 8.0% (HCC) Use up to 4 times a day E11.9 400 Strip 2 04/29/2022 Active OneTouch Delica Plus [id number]: Type 2 diabetes mellitus with hemoglobin A1c [...] emotions 09/07 Food insecurity 08/16/2022 Overview: Per [facility] Protocol Type 2 diabetes mellitus with [...] yrs 06/02/2022 Pneumococcal Conjugate Vacci ne, 20-valent ([id number]) 04/14/2022 Pneumococcal Polysaccharide PPV23 (Pneumovax) 07/28/2020 Seasonal [...] Miscellaneous Notes * Telephone Encounter - JEFERSON Guan - 10/20/2022 5:03 PM EDT Spoke to Pt and scheduled, placed on wait list. * Telephone Encounter - Carlitos Rain MD - 10/20/2022 4:42 PM EDT Referrals signed. * Telephone Encounter - Shruthi Godinez RN - 10/20/2022 4:04 PM EDT SITUATION: Requesting referral for [facility] pain clinic and arthritis specialist BACKGROUND: PMH of diabetes, HTN, RA, osteoarthritis S/p T-10-T11 decompression and fusion 09/02/22 at [facility] by Dr. Mc with UOC Seen by Dr. Rain 10/15/22 for increased back pain ASSESSMENT: Interested in seeing [facility] pain clinic to discuss pain med options Has ongoing chronic pain, also having acute exacerbation of chronic back pain Reviewed that [facility] deals with only chronic pain, verbalized understanding Requesting to see arthritis specialist Last seen 02/26/22 by rheum, states she was told nothing was wrong with her Fingers are getting worse, has lumps in them States she saw Dr. Nuñez briefly when at appt for her mother and he recommended she schedule an appt with him RECOMMENDATION: Dr. Rain, [facility] pain and rheum referrals pended, please sign if agreeable Shruthi Godinez RN [facility] [address] [place] [address] documented in this encounter Plan of Treatment Upcoming Encounters Date Type Specialty Care Team Description 10/25/2022 Telemedicine Pharmacy Pharmacist, [facility] [address] [place] [address] 10/28/2022 Office Visit Orthopedic Surgery Omega Trammell MD [address] [place] [address] 11/11/2022 Office Visit Pharmacy [facility] [address] [facility] [place] [address] 12/10/2022 Office Visit Family Medicine Ale Fontaine CRNP [address] [facility] [address] [place] [address] 07/08/2023 Office Visit Rheumatology Moreno Powell MD [address] [place] [address] Scheduled Procedures Name Priority Associated Diagnoses Date/Ti [...] Comments DISCUSS TOBACCO CESSATION (REFER TO SMARTSET #4898) 1974 COVID-19 Vaccine (#1) 04/30/1975 Mammogram 06/10/2019 [...] syndrome documented in this encounter Care Teams Sales Coach Relationship Specialty Start Date End Date Carlitos Rain MD 21 [facility] [place] [id number] PCP - General Family Medicine 02/18/22 documented as of this encounter
--- OUTSIDE RECORDS SUMMARY | 2023-04-16 10:57 | External Medical Summary ---
Author Name Unknown Address Unknown Organization K01:[facility] [address] [facility] [address] Laboratory Report Ordering Provider Test Date Status KIADEN SIERRA 10/25/2022 09:51:26 Final Observation Date Value Abnormality Reference (Units ) Status Erythrocyte sedimentation rate by Photometric method 10/25/2022 09:51:26 8 <20 (mm/hour) Final Performing Location [facility] [address] [facility] [address]
--- OUTSIDE RECORDS SUMMARY | 2023-04-16 10:57 | External Medical Summary | Summary of Care ---
Author Name Unknown Organization [facility] Address [address] [place] [address] Phone [phone] Care Team Providers Care Relief Pharmacist Name Role Phone Carlitos Rain MD Primary Care Provider Reason for Referral * Medication Prior Authorization - Closed Specialty Diagnoses / Procedures Referred By Rafiq pendleton Referred To Contact Diagnoses Acute exacerbation of chronic low back pain Carlitos Rain MD [address] [place] [address] Referral ID Status Reason Start Date Expiration Date Visits Re quested Visits Authorized [id number] Closed 999 999 Reason for Visit * Reason Onset Date Comments Advice 10/19/202210/19 Back -No Be tter Encounter Details Date Type Department Care Team Description 10/19/2022 Telephone [facility] [address] [place] [address] Carlitos Rain MD 21 [facility] [place] [address] Advice (10/19 Back -No Better) Allergies Active Allergy Reactions Severity Noted Date [...] 2 weeks. Start date 04/16- given by [facility] 0 Active OneTouch Verio In Vitro Strip (Glucose Blood)Indications:Ty pe 2 diabetes mellitus with hemoglobin A1c goal of less than 8.0% (HCC) Use up to 4 times a day E11.9 400 Strip 2 04/29/2022 Active OneTouch Delica Plus [id number] :Type 2 diabetes mellitus with hemoglobin A1c [...] Pain, Severe. 16 Tablet 0 10/20/2022 Active oxyCODONE HCl 5 MG Oral Tablet (Oxy IR)Indications:Acute exacerbation of chronic low back pain Take 1 Tablet by mouth 2 times a day as needed for Pain, Severe. 10 Tablet 0 10/15/2022 3 Discontinu ed(Refill) documented as of this encounter (statuses as of 10/20/2022) Active Problems Problem Noted Date Predominant disturbance of emotions 09/07 Food insecurity 08/16/2022 Overview: Per [facility] Protocol Type 2 diabetes mellitus [...] yrs 06/02/2022 Pneumococcal Conjugate Vacci ne, 20-valent ([id number]) 04/14/2022 Pneumococcal Polysaccharide PPV23 (Pneumovax) 07/28/2020 Seasonal [...] encounter Miscellaneous Notes * Telephone Encounter - Carmine Hyde LPN - 10/20/2022 11:18 AM EDT Reason for Call: Advice (10/19 Back -No Better) Contact: Telephone Call Contact Type: Follow-up Outcome: Patient has been informed of below message and verbalized understanding. Total Time including non face to face (minutes): 5 * Telephone Encounter - Carlitos Rain MD - 10/20/2022 11:11 AM EDT [facility] sent to [facility]. It looks like she was scheduled to see Dr. Trammell on 10/28 from wait list. * Telephone Encounter - Mellissa Chacon LPN - 10/19/2022 2:42 PM EDT Provider to address: Dr. Rain Reason for Call: Advice (10/19 Back -No Better) Contact: Joanne Verde Contact Type: Follow-up Outcome: please advise Total Time including non face to face (minutes): 5 * Telephone Encounter - JEFERSON Quijano - 10/19/2022 2:07 PM EDT Pt calling stating she was to call in if her back pain is no better. Pt is still having intense back pain. Pt asking if more pain medicine can be prescribed. Pt uses [facility] in [facility]. Pt also states Dr Mc at [facility] still has not looked at her MRI. Pt is having a second opinion with Dr Trammell. Pt cannot see Dr Trammell until January 07, 2023. Pt is on a cancellationlist. Please notify pt when prescription is sent at [phone]. documented in this encounter Plan of Treatment Upcoming Encounters Date Type Specialty Care Team Description 10/25/2022 Telemedicine Pharmacy [address] [place] [address] [address] [facility] [place] [address] 10/28/2022 Office Visit Orthopedic Surgery Omega Trammell MD [address] [place] [address] 11/11/2022 Office Visit Pharmacy [facility] [address] [facility] [place] [address] 12/10/2022 Office Visit Family Medicine Ale Fontaine CRNP [facility] [place] [address] Scheduled Procedures Name Priority Associated Diagnoses Date/Ti me COLONOSCOPY FLEXIBLE PROXIMA L DIAGNOSTIC Recall Screening for colon cancer Health Maintenance Due Date Last Done Comments DISCUSS TOBACCO CESSATION (REFER TO SMARTSET #6182) 1974 COVID-19 Vaccine (#1) 04/30/1975 Mammogram 06/10/2019 [...] Lumbago documented in this encounter Care Teams Relief Pharmacist Relationship Specialty Start Date End Date Carlitos Rain MD [place] [id number] PCP - General Family Medicine 02/18/22 documented as of this encounter
--- OUTSIDE RECORDS SUMMARY | 2023-04-16 10:57 | External Medical Summary | Summary of Care ---
Author Name Unknown Organization [facility] Address [address] [place] [address] Phone [phone] Care Team Providers Care Inspector Electromechanical Name Role Phone Carlitos Rain MD Primary Care Provider Reason for Visit * Reason Onset Date Comments Referral 10/21/2022 [facility] Pain Encounter Details Date Type Department Care Team Description 10/21/2022 Telephone Pharmacy Call Center [address] [place] [address] [facility] [address] [facility] [place] [address] Referral ([facility] Pain) Allergies Active Allergy Reactions Severity Noted [...] 2 weeks. Start date 04/16- given by [facility] 0 Active OneTouch Verio In Vitro Strip (Glucose Blood)Indications:Typ e 2 diabetes mellitus with hemoglobin A1c goal of less than 8.0% (HCC) Use up to 4 times a day E11.9 400 Strip 2 04/29/2022 Active OneTouch Delica Plus [id number]: Type 2 diabetes mellitus with hemoglobin A1c [...] emotions 09/07 Food insecurity 08/16/2022 Overview: Per [facility] Protocol Type 2 diabetes mellitus [...] yrs 06/02/2022 Pneumococcal Conjugate Vacci ne, 20-valent ([id number]) 04/14/2022 Pneumococcal Polysaccharide PPV23 (Pneumovax) 07/28/2020 Seasonal [...] Notes * Telephone Encounter - Dixie Lau [facility] - 10/25/2022 9:08 AM EDT Referral received and reviewed. Reason for referral: Pain Please Schedule patient. Referring provider: Carlitos Rain MD Initial appt length: 60 min Appointment type indicated: Pt Prefence- Inperson or Video Preferred Clinic for Appointment: [place] Dixie Lau [facility] 10/25/2022, 9:08 AM * Telephone Encounter - Renae Torres, ladle pourer - 10/21/2022 12:56 PM EDT Procedure: PHARMACIST MEDS THERAPY MGMT REFERRAL OP Status: Needs Scheduling Requested appt date: Authorizing: Carlitos Rain MD in [facility] Referral: [id number] (Authorized) Priority: Within 10 days (routine) Diagnosis: Chronic pain syndrome [G89.4] Comments Pharmacist Medication Therapy Management: Minimum frequency patient should be seen in person for medication management: as appropriate per clinical condition and patient status By my signature, I understand that my patient Caren Johnson will have her medication therapy managed by the [facility] Medication Therapy Disease Management [facility] ([facility]) per established policies, procedures, and protocols. I also certify that this referral may serve as an initiation of service for the management of drug therapy in the above noted patient. [facility] providers will be responsible for scheduling patient visits, obtaining appropriate laboratory studies, and adjusting medication management therapy per patient's need, in addition to those roles spelled out in the clinic policy, procedures, and drug management protocols. I understand that the service provided by the [facility] is voluntary and have informed patient that they can refuse the service at their discretion. I am aware that the [facility] will provide me with a copy of the patient encounter via my [employer]. I authorize the [facility] to carry out these activities on my [...] Care Team Description 10/25/2022 Telemedicine Pharmacy Pharmacist, [facility] [address] [place], [place] [address] 10/28/2022 Office Visit Orthopedic Surgery Omega Trammell MD [address] [place] [id number] 11/11/2022 Office Visit Pharmacy [facility] [address] [facility] [place] [address] 12/10/2022 Office Visit Family Medicine Ale Fontaine CRNP [address] [facility] [address] [place] [address] 07/08/2023 Office Visit Rheumatology Moreno Powell MD [address] [facility] [place] [address] Scheduled Procedures Name Priority Associated Diagnoses Date/Ti me COLONOSCOPY FLEXIBLE PROXIMA L DIAGNOSTIC Recall Screening for colon cancer Health Maintenance Due Date Last Done Comments DISCUSS TOBACCO CESSATION (REFER TO SMARTSET #2920) 1974 COVID-19 Vaccine (#1) 04/30/1975 Mammogram 06/10/2019 [...] filedocumented as of this encounter Care Teams Inspector Electromechanical Relationship Specialty Start Date End Date Carlitos Rain MD [address] [facility] [place] [id number] PCP - General Family Medicine 02/18/22 documented as of this encounter
--- OUTSIDE RECORDS SUMMARY | 2023-04-16 10:57 | External Medical Summary ---
Author Name Unknown Address Unknown Organization K01:LABORATORY [facility] – [place], [place] - [address] [facility] [address] Laboratory Report Ordering Provider Test Date Status KAIDEN SIERRA 10/25/2022 09:51:26 Final Observation Date Value Abnormality Reference (Units ) Status WBC, Total 10/25/2022 09:51:26 6.20 4.00-10.80 (K/uL) Final RBC 10/25/2022 09:51:26 4.49 3.85-5.15 (M/uL) Final Hemoglobin 10/25/2022 09:51:26 14.5 12.0-15.3 (g/dL) Final HCT 10/25/2022 09:51:26 45.6 Above high normal 36.0-45.2 (%) Final MCV 10/25/2022 09:51:26 101.6 81.5-97.5 (fL) Final MCH 10/25/2022 09:51:26 32.3 27.0-34.0 (pg) Final MCHC 10/25/2022 09:51:26 31.8 32.0-36.0 (g/dL) Final RDW 10/25/2022 09:51:26 12.9 11.5-15.5 (%) Final Platelets 10/25/2022 09:51:26 184 140-400 (K/uL) Final MPV 10/25/2022 09:51:26 13.4 6.6-11.1 (fL) Final Nucleated erythrocytes/100 leukocytes [Ratio] in Blood by Automated count 10/25/2022 09:51:26 0 <=0 (/100 WBCs) Final Performing Location LAB[facility]ATORY [facility] – [place], [place] - [address] [place] [address]
--- OUTSIDE RECORDS SUMMARY | 2023-04-16 10:57 | External Medical Summary | Summary of Care ---
Author Name Unknown Organization [facility] Address [address] [place] [address] Phone [phone] Care Team Providers Care Medical Social Worker Name Role Phone Carlitos Rain MD Primary Care Provider Reason for Referral * Medication Prior Authorization - Closed Specialty Diagnoses / Procedures Referred By Rafiq pendleton Referred To Contact Diagnoses Acute exacerbation of chronic low back pain Carlitos Rain MD [address] [place] [address] Referral ID Status Reason Start Date Expiration Date Visits Re quested Visits Authorized [id number] Closed 999 999 Reason for Visit * Reason Onset Date Comments Advice 10/19/202210/19 Back -No Be tter Encounter Details Date Type Department Care Team Description 10/19/[address] [facility] [address] [place] [address] Carlitos Rain MD 21 [facility] [place] [address] Advice (10/19 Back -No Better) Allergies Active [...] 2 weeks. Start date 04/16- given by [facility] 0 Active OneTouch Verio In Vitro Strip (Glucose Blood)Indications:Ty pe 2 diabetes mellitus with hemoglobin A1c goal of less than 8.0% (HCC) Use up to 4 times a day E11.9 400 Strip 2 04/29/2022 Active OneTouch Delica Plus [id number] :Type 2 diabetes mellitus with hemoglobin A1c [...] emotions 09/07 Food insecurity 08/16/2022 Overview: Per [facility] Protocol Type 2 diabetes mellitus [...] yrs 06/02/2022 Pneumococcal Conjugate Vacci ne, 20-valent ([id number]) 04/14/2022 Pneumococcal Polysaccharide PPV23 (Pneumovax) 07/28/2020 Seasonal [...] 10/20/2022 11:11 AM EDT RX sent to [facility]. It looks like she was scheduled to [...] pain medicine can be prescribed. Pt uses [facility] in [facility]. Pt also states Dr Mc at [facility] still has not looked at her MRI. Pt is having a second opinion with Dr Trammell. Pt cannot see Dr Trammell until January 07, 2023. Pt is on a cancellationlist. Please notify pt when prescription is sent at [phone]. documented in this encounter Plan of Treatment Upcoming Encounters Date Type Specialty Care Team Description 10/25/2022 Telemedicine Pharmacy Pharmacist[address] [place] [address] [address] [facility] [place] [address] 10/28/2022 Office Visit Orthopedic Surgery Omega Trammell MD [address] [place] [address] 11/11/2022 Office Visit Pharmacy [facility] [address] [facility] [place] [address] 12/10/2022 Office Visit Family Medicine Ale Fontaine CRNP [address] [facility] [place] [address] Scheduled Procedures Name Priority Associated Diagnoses Date/Ti me COLONOSCOPY FLEXIBLE PROXIMA L DIAGNOSTIC Recall Screening for colon cancer Health Maintenance Due Date Last Done Comments DISCUSS TOBACCO CESSATION (REFER TO SMARTSET #6755) 1975 COVID-19 Vaccine (#1) 04/30/1975 Mammogram 06/10/2019 [...] Lumbago documented in this encounter Care Teams Medical Social Worker Relationship Specialty Start Date End Date Carlitos Rain MD [place] [id number] PCP - General Family Medicine 02/18/22 documented as of this encounter
--- OUTSIDE RECORDS SUMMARY | 2023-04-16 10:57 | External Medical Summary | Summary of Care ---
Author Name Unknown Organization [facility] Address [address] [place] [address] Phone [phone] Care Team Providers Care Hunter Skin Diver Name Role Phone Carlitos Rain MD Primary Care Provider Reason for Visit * Reason Comments Outpatient Testing Encounter Details Date Type Department Care Team Description 10/25/2022 Laboratory Laboratory [facility] [address] [place] [address] [facility], [address] [place] [address] [employer] Other*[id number]; Postoperative infection Allergies Active Allergy Reactions Severity Noted Date [...] 2 weeks. Start date 04/16- given by [facility] 0 Active OneTouch Verio In Vitro Strip (Glucose Blood)Indications:Typ e 2 diabetes mellitus with hemoglobin A1c goal of less than 8.0% (HCC) Use up to 4 times a day E11.9 400 Strip 2 04/29/2022 Active OneTouch Delica Plus [id number]: Type 2 diabetes mellitus with hemoglobin A1c [...] emotions 09/07 Food insecurity 08/16/2022 Overview: Per [facility] Protocol Type 2 diabetes mellitus [...] yrs 06/02/2022 Pneumococcal Conjugate Vacci ne, 20-valent ([id number]) 04/14/2022 Pneumococcal Polysaccharide PPV23 (Pneumovax) 07/28/2020 Seasonal [...] Care Team Description 10/25/2022 Telemedicine Pharmacy Pharmacist, [facility] [address] [place] [address] 10/28/2022 Office Visit Orthopedic Surgery Omega Trammell MD [address] [place], [place] [phone] 11/11/2022 Office Visit Pharmacy [place] [facility] [address] [place] [address] 12/10/2022 Office Visit Family Medicine Ale Fontaine CRNP [address] [place] [address] 07/08/2023 Office Visit Rheumatology Moreno Powell MD [address] [place] [address] Pending Results Name Type Priority Associated Diagnoses Date /Time MYCODE INITIAL ADULT Lab Routine [employer] Other*[id number] 10/25/2022 9:51 AM EDT CRP (INFLAMMATORY MARKER) Lab Routine Postoperative infection 10/25/2022 9:51 AM EDT CBC WITH WBC DIFFERENTIAL Lab Routine Postoperative infection 10/25/2022 9:51 AM EDT ERYTHROCYTE SEDIMENTATION RATE (ESR) Lab Routine Postoperative infection 10/25/2022 9:51 AM EDT MYCODE INITIAL ADULT-PINK Lab Routine [employer] Other*[id number] 10/25/2022 9:51 AM EDT MYCODE SST1 Lab Routine [employer] Other*[id number] 10/25/2022 9:51 AM EDT MYCODE SST2 Lab Routine [employer] Other*[id number] 10/25/2022 9:51 AM EDT CBC Lab Routine Postoperative infection 10/25/2022 9:51 AM EDT DIFFERENTIAL, AUTOMATED Lab Routine Postoperative infection 10/25/2022 9:51 AM EDT Scheduled Procedures Name Priority Associated Diagnoses [...] this encounter Visit Diagnoses Diagnosis [employer] Other*[id number] Postoperative infection Other postoperative infection documented in this encounter Care Teams Hunter Skin Diver Relationship Specialty Start Date End Date Carlitos Rain MD [facility] [place] [address] PCP - General Family Medicine 02/18/22 documented as of this encounter
--- OUTSIDE RECORDS SUMMARY | 2023-04-16 10:57 | External Medical Summary ---
Author Name Unknown Address Unknown Organization K01:[facility] [place] [address] [place] [address] Laboratory Report Ordering Provider Test Date Status KAIDEN SIERRA 10/25/2022 09:51:26 Final Observation Date Value Abnormality Reference (Units ) Status CRP, low-sensitivity 10/25/2022 09:51:26 <3 <=5 (mg/L) Final Performing Location LABORATORY [facility] - [address] [place] [address]
--- OUTSIDE RECORDS SUMMARY | 2023-04-16 10:57 | External Medical Summary | Summary of Care ---
Author Name Unknown Organization [facility] Address [address] [place] [address] Phone [phone] Care Team Providers Care Youth Accommodation Support Worker Name Role Phone Carlitos Rain MD Primary Care Provider Reason for Visit * Reason Comments NEW PATIENT Lower back pain * Evaluate & Treat - Unlimited Visits (Within 10 days (routine)) - Authorized Specialty Diagnoses / Procedures Referred By Rafiq pendleton Referred To Contact Neuro/Ortho Surgery - Spine. / Neurological Surgery Diagnoses Acute exacerbation of chronic low back pain Carlitos Rain MD 21 [facility] [place] [address] Referral ID Status Reason Start Date Expiration Date Visits Requested Visits Authorized [id number] Authorized Specialty Services Required 10/15/2022 999 999 Encounter Details Date Type Department Care Team Description 10/26/2022 Office Visit Orthopaedics Spine Surgery, Kelsie Perez [address] [place] [address] Omega Trammell MD [address] [place] [address] Mid back pain, chronic*; Low back pain, unspecified back pain laterality, unspecified chronicity, unspecified whether sciatica present; History of lumbar fusion; Status post thoracic spinal fusion; Thoracic back pain, unspecified back pain laterality, unspecified chronicity Allergies Active Allergy Reactions Severity Noted Date [...] Strip 2 04/29/2022 Active OneTouch Delica Plus [id number]:T ype 2 diabetes mellitus with hemoglobin A1c [...] yrs 06/02/2022 Pneumococcal Conjugate Vacci ne, 20-valent ([id number]) 04/14/2022 Pneumococcal Polysaccharide PPV23 (Pneumovax) 07/28/2020 Seasonal [...] as of this encounter Progress Notes * Omega Trammell MD - 10/26/2022 8:30 AM EDT Date of service: 10/26/2022 CHIEF COMPLAINT: Caren Johnson is a 46 year old female presents with complaints/concerns of persistent mid and low back pain. Patient had a history of recent thoracic spine surgery by Dr. Mc on 09/02/2022. Patient has been following up with her operating surgeon. She is wanted another opinion based on the discussion with her primary care. Patient has a history of multiple lumbar spine surgeries. Patient denies any acute progressive neurological deficit, bowel bladder disturbances consult symptoms. No wound related complaints. New Referring physician:Carlitos Rain Here for 2nd [...] cervical and hand function: Workman compensation/ Litigation/ Professor Of Archaeology: Spine investigations done and date: Xray: MRI: CT scan: EMG/ NCV: Spine treatment so far: Medications: NSAIDS/ Gabapentin/ Muscle relaxants/ Narcotics / Oral steroids - Mederol/ Prednisone Physical therapy within last year: Chiropractor therapy: Brace use: Pain management and Spinal epidural injections: Spine surgery - Surgeon and year:T10-T11 laminectomy, previous T8 laminectomy, L1-5 fusion, all surgeries with Dr. Mc 09/02/2022 Significant Medical history: If diabetic HbA1c:yes 5.2 On blood thinners:no Osteoporosis screening:no Tobacco/ Illicit drug use:previous medical marijuana, smokes about 8 cigarettes per day Work profile: disabled, childcare worker Allergies: Pollen The past medical, surgical, medication, family and social history was reviewed and is documented elsewhere in the chart. ROS: Negative except as outlined in HPI Vitals: There were no vitals taken for this visit. There is no height or weight on file to calculate BMI. Physical Exam: General: alert, healthy and no distress Constitutional: The general appearance appears normal. Respiratory: Breathing is nonlabored, thoracic. No use of accessory muscles. Cardiovascular system: Vascularity grossly preserved Spine evaluation Cervical, thoracic and lumbar spine: No paraspinal swelling. No deformity. Surgical incision healed well Neurological examination: Motor power upper extremities - Bilateral shoulder abductors, elbow flexors, triceps, wrist flexorsand extensors and intrinsic muscles of the hand is 5/5. Motor power lower extremities - Bilateral hip flexors, knee extensors, ankle dorsiflexors, plantar flexors, EHL/EDL, FHL/FDL is 5/5. The deep tendon reflexes - Bilateral Biceps, triceps, brachioradialis, Patellar tendon, Achilles tendon are 2+ Sensation are grossly preserved bilaterally in upper extremities. Diffuse paresthesias in the lower extremity. Sensation are grossly preserved bilaterally in the lower extremities. Radiological imaging: I independently reviewed the relevant radiological imaging including x-rays ordered at this visit X-rays of the lumbar and thoracic spine show evidence of lower thoracic and lumbar fusion with appropriately placed implants. The spinal alignment is maintained. MRI thoracic spine 10/14/2022: Expected postoperative changes of T10-T11 laminectomies with posterior instrumented and interbody fusion. No acute abnormalities are identified. Assessment & Plan: Pt is a 46 year old female here for the following problems/concerns: Thoracic back pain Status post thoracic fusion Lumbar back pain Status post lumbar fusion History of multiple lumbar spine surgeries We discussed the diagnosis, the natural history and the treatment options. Based on the clinical and radiological findings various treatment options including the risks, benefits and alternatives were discussed. Patient is neurologically stable and is gradually recovering from surgery. She has a very complex history with multiple back surgeries. We discussed about recovery from a major spine intervention andthe pain and discomfort associated visit. Based on the current assessment, no urgent spine intervention indicated. Patient encouraged to follow-up with her operating surgeon for further recommendations. Importance of tobacco cessation, use of brace and other modalities for pain relief discussed. Additional recommendations: Activity modification as tolerated Pain medications as per the primary care. Adverse effects and appropriate precautions were discussed. If the patient has persistence or worsening of symptoms additional investigations will be recommended. Warning signs have been discussed. Follow up: Patient is going to follow-up with her operating surgeon at [facility] for reassessment. Reach out earlier if any worsening of symptoms. The patient expressed understanding and agreement to the plan. Complexity of decision making: Medium to High I spent 45 minutes on 10/26/2022 in preparation, delivery and documentation of the care provided to the patient, excluding any time spent on the performance of the procedure are separately billable service. Omega Trammell MD This chart was completed in part utilizing [employer] Speech Voice Recognition Software. Grammatical errors, random word insertions, prounoun errors and incomplete sentences are an occasional consequence of this system due to software limitations, ambient noise, and hardware issues. Any formal questions or concerns about the content, text, or information contained within the body of this dictation should be directly addressed to the provider for clarification. documented in this encounter Nursing Notes * Patsy Tolentino LPN - 10/26/2022 8:09 AM EDT New Referring physician:Carlitos Rain Here for [...] cervical and hand function: Workman compensation/ Litigation/ Professor Of Archaeology: Spine investigations done and date: Xray: MRI: CT scan: EMG/ NCV: Spine treatment so far: Medications: NSAIDS/ Gabapentin/ Muscle relaxants/ Narcotics / Oral steroids - Mederol/ Prednisone Physical therapy within last year: Chiropractor therapy: Brace use: Pain management and Spinal epidural injections: Spine surgery - Surgeon and year:T10-T11 laminectomy, previous T8 laminectomy, L1-5 fusion, all surgeries with Dr. 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 encounter Plan of Treatment Upcoming Encounters Date Type Specialty Care Team Description 10/28/2022 Office Visit Rheumatology Moreno Powell MD [address] [place] [address] 11/11/2022 Office Visit Pharmacy [facility] [address] [facility] [place] [address] 12/03/2022 Office Visit Pain Medicine Benji Champion CRNP [address] [facility] [place] [address] 12/10/2022 Office Visit Family Medicine Ale Fontaine CRNP 21 [facility] [place] [address] Pending Results Name Type Priority Associated Diagnoses Date /Time XR T SPINE AP AND LATERAL Medical Imaging Routine Mid back pain, chronic 10/26/2022 8:38 AM EDT XR L SPINE AP AND LATERAL Medical Imaging Routine Low back pain, unspecified back pain laterality, unspecified chronicity, unspecified whether sciatica present 10/26/2022 8:38 AM EDT Scheduled Procedures Name Priority Associated Diagnoses Date/Ti me COLONOSCOPY FLEXIBLE PROXIMA L DIAGNOSTIC Recall Screening for colon cancer Health Maintenance Due Date Last Done Comments DISCUSS TOBACCO CESSATION (REFER TO SMARTSET #2535) 1974 COVID-19 Vaccine (#1) 04/30/1975 Mammogram 06/10/2019 [...] as of this encounter Visit Diagnoses Diagnosis Mid back pain, chronic- Primary Backache, unspecified Low back pain, unspecified back pain laterality, unspecified chronicity, unspecified whether sciatica present History of lumbar fusion Status post thoracic spinal fusion Thoracic back pain, unspecified back pain laterality, unspecified chronicity documented in this encounter Care Teams Youth Accommodation Support Worker Relationship Specialty Start Date End Date Carlitos Rain MD [facility] [address] [place] [address] PCP - General Family Medicine 02/18/22 documented as of this encounter
--- OUTSIDE RECORDS SUMMARY | 2023-04-16 10:57 | External Medical Summary ---
Author Name Unknown Address Unknown Organization K01:[facility] [place] [address] [place] [address] Laboratory Report Ordering Provider Test Date Status KAIDEN SIERRA 10/25/2022 09:51:26 Final Observation Date Value Abnormality Reference (Units ) Status SYNC LEUKOCYTES IN BLOOD BY AUTOMATED COUNT 10/25/2022 09:51:26 6.20 4.00-10.80 (K/uL) Final Segs 10/25/2022 09:51:26 44.9 40.0-75.0 (%) Final Lymphs % 10/25/2022 09:51:26 37.7 18.0-42.0 (%) Final Monos 10/25/2022 09:51:26 7.6 1.0-11.0 (%) Final Eosinophils 10/25/2022 09:51:26 8.1 Above high normal 0.0-6.0 (%) Final Basos 10/25/2022 09:51:26 1.5 0.0-2.0 (%) Final Immature Granulocyte, Percent 10/25/2022 09:51:26 0.2 0.0-2.0 (%) Final Absolute Segs 10/25/2022 09:51:26 2.79 1.80-7.70 (K/uL) Final Lymphs, absolute 10/25/2022 09:51:26 2.34 1.00-4.80 (K/ul) Final Monos, Abs 10/25/2022 09:51:26 0.47 0.00-1.10 (K/uL) Final Eos, Abs 10/25/2022 09:51:26 0.50 0.00-0.70 (K/uL) Final Basos, Abs 10/25/2022 09:51:26 0.09 0.00-0.20 (K/uL) Final Immature Granulocytes, Number 10/25/2022 09:51:26 0.01 0.00-0.20 (K/uL) Final Performing Location [facility] [place] - [address] [facility] [address]
--- OUTSIDE RECORDS SUMMARY | 2023-04-16 10:57 | External Medical Summary | Summary of Care ---
Author Name Unknown Organization [facility] Address [address] [place] [address] Phone [phone] Care Team Providers Care Cafeteria Cashier Name Role Phone Carlitos Rain MD Primary Care Provider Reason for Visit * Reason Onset Date Comments Referral 10/21/2022 [facility] Pain Encounter Details Date Type Department Care Team Description 10/21/2022 Telephone Pharmacy Call Center [address] [place] [address] [facility] [address] [facility] [place] [address] Referral ([facility] Pain) Allergies Active Allergy Reactions Severity [...] Strip 2 3 Active OneTouch Delica Plus [id number] :Type 2 diabetes mellitus with hemoglobin A1c [...] 2 weeks. Start date 04/16- given by [place] [facility] 0 10/26/19 23 Discontinued documented as [...] yrs 06/02/2022 Pneumococcal Conjugate Vacci ne, 20-valent ([id number]) 04/14/2022 Pneumococcal Polysaccharide PPV23 (Pneumovax) 07/28/2020 Seasonal [...] 9:08 AM * Telephone Encounter - Renae Torres java android developer - 10/21/2022 12:56 PM EDT Procedure: PHARMACIST MEDS THERAPY MGMT REFERRAL OP Status: Needs Scheduling Requested appt date: Authorizing: Carlitos Rain MD in [facility] Referral: [id number] (Authorized) Priority: Within 10 days (routine) Diagnosis: Chronic pain syndrome [G89.4] Comments Pharmacist Medication Therapy Management: Minimum frequency patient should be seen in person for medication management: as appropriate per clinical condition and patient status By my signature, I understand that my patient Caren Johnson will have her medication therapy managed by the [facility] Medication Therapy [facility] ([facility]) per established policies, procedures, and protocols. I also certify that this referral may serve as an initiation of service for the management of drug therapy in the above noted patient. [facility] providers will be responsible for scheduling patient visits, obtaining appropriate laboratory studies, and adjusting medication management therapy per patient's need, in addition to those roles spelled out in the clinic policy, procedures, and drug management protocols. I understand that the service provided by the [facility] is voluntary and have informed patient that they can refuse the service at their discretion. I am aware that the [facility] Clinic will provide me with a copy of the patient encounter via my [employer]. I authorize the [facility] to carry out these activities on [...] 10/28/2022 Office Visit Rheumatology Moreno Powell MD [address] [place] [address] 11/11/2022 Office Visit Pharmacy [facility] [address] [facility] [place] [address] 12/03/2022 Office Visit Pain Medicine Benji Champion CRNP [address] [place] [address] 12/10/2022 Office Visit Family Medicine Ale Fontaine CRNP [address] [place] [address] Scheduled Procedures Name [...] filedocumented as of this encounter Care Teams Cafeteria Cashier Relationship Specialty Start Date End Date Carlitos Rain MD [address] [facility] [place] [address] PCP - General Family Medicine 02/18/22 documented as of this encounter
--- OUTSIDE RECORDS SUMMARY | 2023-04-16 10:57 | External Medical Summary ---
Author Name Unknown Address Unknown Organization K01:[facility] [place] [address] [place] [address] Laboratory Report Ordering Provider Test Date Status ROMINA HEATH 10/25/2022 09:51:26 Final Observation Date Value Abnormality Reference (Units ) Status MYCODE SPECIMEN-SST 10/25/2022 09:51:26 Freezing of extracted DNA, whole blood and/or serum. Final Performing Location [facility] [place] [address] [place] [address]
--- OUTSIDE RECORDS SUMMARY | 2023-04-16 10:57 | External Medical Summary ---
Author Name Unknown Address Unknown Organization K01:[facility] [place] [address] [place] [address] Laboratory Report Ordering Provider Test Date Status ROMINA HEATH 10/25/2022 09:51:26 Final Observation Date Value Abnormality Reference (Units ) Status MYCODE SPECIMEN-SST 10/25/2022 09:51:26 Freezing of extracted DNA, whole blood and/or serum. Final Performing Location [facility] [place] [address] [place] [address]
[2023-04-16] MEDS: LORazepam 1 MG/1 ML SYR ED Inj Use IV STA (11:29)
[2023-04-16 12:23] LABS: Appearance Urine Clear (Clear); Bilirubin Urine Negative (Negative); Blood Urine Negative (Negative); Color Urine Yellow; Glucose Urine UA Negative (Negative); Ketones Urine Negative (Negative); Leukocyte Esterase Urine Negative (Negative); Nitrite Urine Negative (Negative); Protein Urine Negative (Negative); Specific Gravity Urine 1.018 (1.000-1.030); Urobilinogen Urine Negative (Negative); pH Urine 5.5 (4.5-7.5)
--- NOTE | 2023-04-16 13:02 | Magnetic Resonance Report ---
MR thoracic spine wo con CLINICAL HISTORY: Low back pain, Leg weakness, numbness TECHNIQUE: Multiplanar sequences through the thoracic spine were obtained, without intravenous contra st. Comparison: None available at the time of this dictation. FINDINGS: Posterior fixation hardware is seen extending from T10 to T11 and L1-L5. Disks are normal in height a nd signal. The spinal canal and neural foramina are patent. The spinal ligaments are intact, without evidence of disruption or abnormal signal intensity. The spi nal cord is normal in signal intensity and there is no evidence of cord contusion. There is no eviden ce of an extradural, intradural, extramedullary or intramedullary lesion. Visualized soft tissues are normal. IMPRESSION: No evidence of cord compression, significant neuroforaminal narrowing or ligamentous injury. ACT 112: Negative or not required by law. Electronically signed by: Paul Botello M.D. 04/16/2023 1:00 PM
[2023-04-16] MEDS ORDERED: LORazepam 0.5 MG TAB PO PRN (13:11)
[2023-04-16] MEDS ORDERED: METOCLOPRAMIDE HCL INJ 5 MG/ML 2 ML VIAL IV PRN (13:11)
[2023-04-16] MEDS ORDERED: PROMETHAZINE HCL 12.5 MG in SODIUM CHLORIDE 0.9% 50 ML IV PRN (13:11)
[2023-04-16] MEDS ORDERED: MAGNESIUM HYDROXIDE SUSP 30 ML UDC PO PRN (13:11)
[2023-04-16] MEDS ORDERED: LORazepam 0.5 MG in SYRINGE 0.25 ML IV PRN (13:11)
[2023-04-16] MEDS ORDERED: ONDANSETRON 4 MG OD TAB PO PRN (13:11)
[2023-04-16] MEDS ORDERED: HYDROmorphone INJ 0.5 MG/0.5 ML SYR IV PRN (13:11)
[2023-04-16] MEDS ORDERED: NALOXONE HCL 0.4 MG/1 ML VIAL/CARP IV PRN (13:11)
[2023-04-16] MEDS ORDERED: ACETAMINOPHEN 1,000 MG/100 ML VIAL IV PRN (13:11)
[2023-04-16] MEDS ORDERED: ACETAMINOPHEN 500 MG TAB PO PRN (13:11)
[2023-04-16] MEDS ORDERED: PHARMACY GLYCEMIC MGMT CONSULT PRN (13:11)
[2023-04-16] MEDS ORDERED: ONDANSETRON INJ 2 MG/ML 2 ML VIAL IV PRN (13:11)
[2023-04-16] MEDS ORDERED: traMADol HCL 50 MG TABLET PO PRN (13:11)
--- NOTE | 2023-04-16 13:13 | Magnetic Resonance Report ---
MR lumbar spine wo con CLINICAL HISTORY: Low back pain, Leg weakness, numbness TECHNIQUE: Multiplanar sequences through the lumbar spine were obtained, without intravenous contrast . Comparison: Comparison is made to lumbar spine radiographs 04/27/2023 FINDINGS: Posterior fixation hardware is again seen in the lower thoracic and lumbar spine. T12-L1: There is minimal narrowing of the spinal canal due to facet arthropathy. L1-L2: No significant abnormality. L2-L3: No significant abnormality. L3-L4: No significant abnormality. L4-L5: No significant abnormality. L5-S1: No significant abnormality. The spinal ligaments are intact, without evidence of disruption or abnormal signal intensity. The spi nal cord is normal in signal intensity and there is no evidence of cord contusion. There is no eviden ce of an extradural, intradural, extramedullary or intramedullary lesion. Soft tissue edema is seen a bout the posterior lumbar region which may represent edema and muscular atrophy. IMPRESSION: No significant canal or neuroforaminal stenosis. Edema of the paraspinal musculature in the lower lum bar region which may represent muscular atrophy. ACT 112: Negative or not required by law. Electronically signed by: Paul Botello M.D. 04/16/2023 1:11 PM
--- NOTE | 2023-04-16 13:39 | Pharmacy Report ---
Pharmacy Glycemic Short Note 2 - Date of Service April 16, 2023 - Glycemic Short BSG Results (Last 24 hours): 04/16/23 09:41 Glucose 93 OUTPATIENT ANTIDIABETIC REGIMEN: * Metformin 500 mg PO AM * HbA1c pending ASSESSMENT: * 47 yo F admitted on 04/16/23 secondary to back pain. Pharmacy has been consulted to assist with inpatient glycemic management. Patient is a Type 2 diabetic as an outpatient. Please refer to outpatient regimen and most recent HbA1c above. * Unsure if there are any plans for surgery yet. Ordered a T2DM diet. * Given recent A1c's and BSG of 93 mg/dL in ED, will continue with home metformin for now. May need transitioned to basal-bolus if surgery indicated. PLAN FOR INPATIENT GLYCEMIC CONTROL: * Metformin 500 mg PO AM * * * * * * *
[2023-04-16] MEDS: busPIRone 5 MG TAB PO SCH ×2 (13:43→20:14)
[2023-04-16] MEDS: SODIUM CHLORIDE 0.9% 1,000 ML IV SCH (13:50)
[2023-04-16] MEDS: HYDROmorphone INJ 1 MG/ML SYRINGE IV PRN (13:52)
[2023-04-16] MEDS ORDERED: CARBOHYDRATES FOR HYPOGLYCEMIA PO PRN (14:15)
[2023-04-16] MEDS ORDERED: GLUCOSE 40% GEL 15 GM TUBE PO PRN (14:15)
[2023-04-16] MEDS ORDERED: GLUCOSE 10 TAB/TUBE PO PRN (14:15)
[2023-04-16] MEDS ORDERED: GLUCAGON FOR INJ 1 MG VIAL IM PRN (14:15)
[2023-04-16] MEDS ORDERED: DEXTROSE 50% 50 ML SYRINGE IV PRN (14:15)
[2023-04-16] MEDS ORDERED: hydrOXYzine HCl 25 MG TAB PO PRN (16:41)
[2023-04-16] MEDS: diazePAM 2 MG TABLET PO ONE (17:48)
[2023-04-16 18:31] LABS: Influenza A virus by PCR Negative (Neg); Influenza B virus by PCR Negative (Neg); RSV by PCR Negative (Neg); SARS CoV2 RNA(COVID-19) Ceph NEGATIVE (Negative)
--- NOTE | 2023-04-16 19:58 | Hospitalist Consultation ---
Date of Consultation April 16, 2023 Assessment & Plan (1) Intractable back pain: (2) Fibromyalgia: Admitted under spine ortho service for intractable back pain. History of 4 prior back surgeries, most recently 08/2022. Thoracic and lumbar spine MRIs unremarkable Case discussed with Dr. Mc Will trial scheduled Valium and NSAID. Continue home oxycodone for breakthrough pain. Continue home pregabalin (3) DM type 2 (diabetes mellitus, type 2): Hgb A1c 5.0 11/2022 Glycemic pharmacy consulted by primary service Continuing home metformin for now (4) Migraine: Chronic, stable Continue prophylactic Topamax (5) GERD (gastroesophageal reflux disease): Chronic, stable Continue PPI (6) Anxiety and depression: Chronic, stable Continue home meds DVT PROPHYLAXIS SCDs as per spine Ortho Patient seen in collaboration with Dr. Day. Thank you for this consultation. We will follow the patient with you during their hospital stay. You can reach a member of the [facility] Hospitalist Team 30/08 via the [facility] Hospitalist role in [employer] [employer]. Supervising Physician Co-Signing Physician Notes I have seen and examined the patient and have discussed the case with the provider above. I have reviewed the advanced practitioner's documentation, and I agree with, and take responsibility for that plan of care. The patient is a 47-year-old smoker presenting with acute intractable back pain present over the last 4 days. She does report being able to get up and walk around overnight last night but fell back asleep and woke up at 530 this morning doubled over and stuck at 45 degrees with severe back pain. The paraspinal back pain is present from her lower cervicals paraspinal region all the way down to her sacral area and somewhat into her gluteus muscles on exam. She is able to maneuver independently in the bed and is able to walk, however, she is not able to d orsiflex or plantarflex her feet easily and she has bilateral leg weakness when tested in a sitting position. She does report some radiculopathy in the bilateral legs posteriorly and does report generalized lower extremity leg weakness. She did report getting a new bed last Tuesday but states she has not slept in it much. She does not feel that any new position is causing her back pain. She does have a history of back surgery. She also has an altered pain threshold given her chronic oxycodone use. She is also on Flexeril pregabalin. Agree with plan for muscle relaxation with Valium and pain control with NSAIDs. After couple doses of IV Dilaudid at 1 mg pushes, her pain is not improved and reported at a 7 out of 10. We discussed in detail that Dilaudid IV is not the ideal choice for her type of pain and she verbalized understanding regarding holding this and lieu of the benzo NSAID combination. Ice as tolerated is also recommended pending further evaluation by ortho spine and pain management. Ambulation as tolerated was encouraged. PT/OT consults pending. DO Shay History of Present Illness Reason for Consultation: Medical management Requesting Physician: Dr. Mc Attending Physician: Luke Mc DO History of Present Illness 47-year-old female with PMH DM type II, fibromyalgia, RLS, tobacco abuse, GERD, migraines, anxiety, depression, prior back surgeries, and other problems listed below who presents to the ED for evaluation of intractable back pain. History is obtained from the patient and review of outpatient PCP records. Patient reports that 4 days ago, she developed acute onset mid back pain that was radiating down into her right leg. Patient reports symptoms were very similar to when she required back surgery last summer. Patient chronically takes oxycodone and Flexeril, reports she has not had relief from either these medications. Patient reports she also is unable to flex either foot upwards however she is able to walk. Feels like her right leg is slightly weaker than the left. She denies any bowel or bladder dysfunction. No fevers or chills. Denies chest pain or shortness of breath. No lightheadedness, dizziness, diaphoresis, syncopal events. Patient presented to the ED today and underwent thoracic and lumbar spine MRIs that were both unremarkable. Patient has been admitted under the spine orthopedic service for further workup and management. Allergies Allergy/AdvReac Type Severity Reaction Status Date / Time No Known Drug Allergies Allergy Unknown NONE Verified 04/16/23 11:10 Home Medications Medication Instructions Recorded Confirmed Type atorvastatin 10 mg tablet 10 mg PO QAM 12/25/20 04/16/23 History cetirizine 10 mg tablet (Zyrtec) 10 mg PO QAM 12/25/20 04/16/23 History pramipexole 0.5 mg tablet 0.5 mg PO HS 12/25/20 04/16/23 History cholecalciferol (vitamin D3) 50 50 mcg PO QPM 05/07/22 04/16/23 History mcg (2,000 unit) capsule (Vitamin D3) metformin 500 mg tablet 500 mg PO QAM 05/07/22 04/16/23 History topiramate 50 mg tablet 50 mg PO BID 05/07/22 04/16/23 History bupropion HCl 150 mg 24 hr tablet, 150 mg PO QAM 08/31/22 04/16/23 History extended release esomeprazole magnesium 40 mg 40 mg PO DAILY 08/31/22 04/16/23 History capsule,delayed release montelukast 10 mg tablet 10 mg PO DAILY 08/31/22 04/16/23 History oxycodone 5 mg tablet 5 mg PO Q6H PRN pain #30 tabs 09/03/22 04/16/23 Rx acetaminophen 500 mg tablet 1,000 mg PO Q6H 04/16/23 04/16/23 History albuterol sulfate 90 mcg/actuation 2 puff inhalation Q4H PRN 04/16/23 04/16/23 History aerosol inhaler SOB/Wheezing buspirone 10 mg tablet 10 mg PO TID 04/16/23 04/16/23 History cyclobenzaprine 10 mg tablet 10 mg PO TID 04/16/23 04/16/23 History dulaglutide 1.5 mg/0.5 mL 1.5 mg subcut WK 04/16/23 04/16/23 History subcutaneous pen injector (Trulicity) hydroxyzine HCl 25 mg tablet 25 mg PO Q6H PRN Anxiety 04/16/23 04/16/23 History ondansetron 4 mg disintegrating 4 mg PO Q8H PRN Nausea And Vomiting 04/16/23 History tablet polyethylene glycol 3350 17 17 g PO DAILY PRN Constipation 04/16/23 04/16/23 History gram/dose oral powder pregabalin 150 mg capsule 150 mg PO TID 04/16/23 04/16/23 History trazodone 50 mg tablet 50 mg PO HS 04/16/23 04/16/23 History Patient History Medical History (Updated 04/16/23 @ 20:06 by ALBERT Perez) Anxiety and depression History of TIA (transient ischemic attack) 03/20/22 -- initially thought to be a TIA, later determined to be complex migraine. No residual deficits DM type 2 (diabetes mellitus, type 2) Recently dx'ed (02/2022) Migraine Restless leg syndrome Dyslipidemia Allergic asthma H/O difficult intubation 11/05/13 - Glidescope #4, ETT #7.0, Atraumatic, GS x 1 without difficulty. Fibromyalgia Degenerative disc disease Chronic back pain Hiatal hernia GERD (gastroesophageal reflux disease) Surgical History History of arthroscopy of left shoulder Left Shoulder Arthroscopic Subacromial Decompression, Distal Clavicle Excision, Rotator Cuff Repair with [employer] History of spinal fusion [address] [facility] [address] Mc History of right knee joint replacement History of left knee replacement History of carpal tunnel release RIGHT - REMOVED CYST FROM RIGHT HAND AT SAME TIME History of section History of hysterectomy VALENCIA WITH RSO History of dilatation and curettage History of bilateral tubal ligation Spinal cord stimulator status PLACED 2016, REMOVED 2017 Fusion of spine L4-L5, L5-S1. 11/05/13: Glidescope #4, ETT #7.0, Atraumatic, GS x 1 without difficulty. History of colonoscopy History of esophagogastroduodenoscopy (EGD) History of tooth extraction History of tonsillectomy Family History Father Family history of diabetes mellitus Grandfather (Paternal) Family history of diabetes mellitus Grandmother (Paternal) Family history of diabetes mellitus Social History Smoking Status: Current every day smoker Tobacco Type: Cigarettes Cigarettes Per Day: 10; Second Hand Exposure: No; Do You Dip or Chew Tobacco: No; Tobacco Cessation Education Requested by Patient: No Hx Alcohol Use: Yes Alcohol type: wine Hx Substance Use: No Preferred Language: Setswana Communication Ability: Effective Shipping Checker Required: No Beliefs That Will Affect Care: None marital status: Current Living Situation: Spouse Other Information That Helps Us Care for You: No Feels Safe at Home: Yes Safety Concerns: Feels Safe At This Time Assistive Devices: Denture - Upper, Denture - Lower, Glasses and Walker Physical Exam 2 Constitutional: WD/WN, vitals as above no acute distress Eyes: PERRL, conjunctivae normal, anicteric sclerae ENMT: external ear and nose normal, oropharynx normal Respiratory: normal respiratory effort; no respiratory distress Auscultation: + wheezes (Scattered, expiratory) Cardiovascular: Rate/Rhythm: regular rate and regular rhythm Vessels: normal peripheral pulses Extremities: no edema Gastrointestinal (Abdomen): normal bowel sounds, soft, nontender, no hepatosplenomegaly Musculoskeletal: Patient tearful throughout exam due to pain, is unable to preform dorsiflexion or extension on either foot however reports she has been able to walk, asked patient to bend each leg at the knee and she cries in pain Skin: no rashes, warm and dry Neurologic: PERRL, EOMI, accommodation nl, no face palsy, no dysarthria Psychiatric: Orientation: alert and oriented x 3 Affect: + tearful affect Results & Data Results & Data Vital Signs (Past 12 Hours) Vital Signs Temp Pulse Pulse Resp BP BP Pulse Ox 04/16/23 13:34 36.6 C 69 16 119/73 96 04/16/23 13:22 04/16/23 13:17 36.6 C 69 16 119/73 96 04/16/23 12:20 71 98 04/16/23 11:45 85 L 04/16/23 11:19 76 20 94 04/16/23 10:00 80 20 142/98 H 97 04/16/23 09:12 74 22 97 04/16/23 08:45 36.3 C L 81 16 138/97 94 O2 Del Method O2 Flow Rate 04/16/23 13:34 Room Air 04/16/23 13:22 Room Air 04/16/23 13:17 Room Air 04/16/23 12:20 Nasal Cannula 2 04/16/23 11:45 Nasal Cannula 0 04/16/23 11:19 Room Air 04/16/23 10:00 Room Air 04/16/23 09:12 Room Air 04/16/23 08:45 Room Air Laboratory Results Short CBC 04/16/23 Range/Units 09:41 WBC 5.55 (4.8-10.8) K/ul Hgb 13.0 (12.0-16.0) g/dl Hct 40.0 (37.0-47.0) % Plt Count 154 (130-400) K/uL BMP 04/16/23 09:41 Sodium 137 Potassium 3.8 Chloride 106 Carbon Dioxide 27 BUN 16 Creatinine 0.90 Glucose 93 Calcium 9.2 Liver Function 04/16/23 Range/Units 09:41 Total Bilirubin 0.3 (0.2-1.0) mg/dl AST 89 H (13-39) U/L ALT 293 H (7-52) U/L Alkaline Phosphatase 268 H (34-104) U/L Albumin 4.1 (3.4-5.0) gm/dl Urine 04/16/23 Range/Units Unknown Urine Color Yellow Urine Appearance Clear (Clear) Urine pH 5.5 (4.5-7.5) Ur Specific [place] 1.018 (1.000-1.030) Urine Protein Negative (Negative) Urine Glucose (UA) Negative (Negative) Diagnostic Findings Lumbar Spine X-Ray 04/16/23 09:10 XR lumbar spine min 4V routine CLINICAL HISTORY: Back pain, hx surgery TECHNIQUE: 5 views of the lumbar spine were obtained. Comparison: Comparison is made to lumbar spine radiographs 12/25/2020 FINDINGS: Posterior fixation hardware is seen. Vertebral body heights and disc spaces are well maintained. The alignment is normal. No soft tissue abnormality is seen. IMPRESSION: No acute fracture or subluxation. ACT 112: Negative or not required by law. Electronically signed by: Paul Botello M.D. 04/16/2023 10:13 AM Thoracic Spine X-Ray 04/16/23 09:10 XR thoracic spine 3V routine CLINICAL HISTORY: Back pain, hx surgery TECHNIQUE: 3 views of the thoracic spine were obtained. Comparison: None available at the time of this dictation. FINDINGS: Posterior fixation hardware is seen in the lower thoracic spine. Degenerative changes are seen in the thoracic spine. Alignment appears unremarkable. Prevertebral soft tissues are within normal limits. IMPRESSION: Degenerative changes as above without acute fracture or subluxation. ACT 112: Negative or not required by law. Electronically signed by: Paul Botello M.D. 04/16/2023 10:19 AM Lumbar Spine MRI 04/16/23 10:02 MR lumbar spine wo con CLINICAL HISTORY: Low back pain, Leg weakness, numbness TECHNIQUE: Multiplanar sequences through the lumbar spine were obtained, without intravenous contrast. Comparison: Comparison is made to lumbar spine radiographs 04/27/2023 FINDINGS: Posterior fixation hardware is again seen in the lower thoracic and lumbar spine. T12-L1: There is minimal narrowing of the spinal canal due to facet arthropathy. L1-L2: No significant abnormality. L2-L3: No significant abnormality. L3-L4: No significant abnormality. L4-L5: No significant abnormality. L5-S1: No significant abnormality. The spinal ligaments are intact, without evidence of disruption or abnormal signal intensity. The spinal cord is normal in signal intensity and there is no evidence of cord contusion. There is no evidence of an extradural, intradural, extramedullary or intramedullary lesion. Soft tissue edema is seen about the posterior lumbar region which may represent edema and muscular atrophy. IMPRESSION: No significant canal or neuroforaminal stenosis. Edema of the paraspinal musculature in the lower lumbar region which may represent muscular atrophy. ACT 112: Negative or not required by law. Electronically signed by: Paul Botello M.D. 04/16/2023 1:11 PM Thoracic Spine MRI 04/16/23 10:02 MR thoracic spine wo con CLINICAL HISTORY: Low back pain, Leg weakness, numbness TECHNIQUE: Multiplanar sequences through the thoracic spine were obtained, without intravenous contrast. Comparison: None available at the time of this dictation. FINDINGS: Posterior fixation hardware is seen extending from T10 to T11 and L1-L5. Disks are normal in height and signal. The spinal canal and neural foramina are patent. The spinal ligaments are intact, without evidence of disruption or abnormal signal intensity. The spinal cord is normal in signal intensity and there is no evidence of cord contusion. There is no evidence of an extradural, intradural, extramedullary or intramedullary lesion. Visualized soft tissues are normal. IMPRESSION: No evidence of cord compression, significant neuroforaminal narrowing or ligamentous injury. ACT 112: Negative or not required by law. Electronically signed by: Paul Botello M.D. 04/16/2023 1:00 PM
[2023-04-16] MEDS: TOPIRAMATE 50 MG TAB PO SCH (20:14)
[2023-04-16] MEDS: CYCLOBENZAPRINE HCL 10 MG TAB PO SCH (20:14)
[2023-04-16] MEDS: PRAMIPEXOLE DIHYDROCHLO 0.5 MG TAB PO SCH (20:14)
[2023-04-16] MEDS: IBUPROFEN 800 MG TAB PO SCH (20:14)
[2023-04-16] MEDS: PREGABALIN 150 MG CAP PO SCH (20:14)
[2023-04-16] MEDS: traZODone HCL 50 MG TAB PO SCH (20:14)
[2023-04-16] MEDS: diazePAM 5 MG TABLET PO SCH (20:14)
[2023-04-16] MEDS: oxyCODONE HCL IR 5 MG TAB (IMMEDIATE RELEASE) PO PRN (20:16)
[2023-04-17 07:09] LABS: Estimated Average Glucose 105 mg/dl; Hemoglobin A1C 5.3 % (4.5-5.6)
[2023-04-17] MEDS: ATORVASTATIN 10 MG TAB PO SCH (08:37)
[2023-04-17] MEDS: buPROPion XL 150 MG TABCR PO SCH (08:38)
[2023-04-17] MEDS: PANTOprazole 40 MG TAB PO SCH ×2 (08:38→21:34)
[2023-04-17] MEDS: CETIRIZINE HCL 10 MG TABLET PO SCH (08:38)
[2023-04-17] MEDS: MONTELUKAST SODIUM 10 MG TABLET PO SCH (08:38)
[2023-04-17] MEDS ORDERED: metFORMIN HCL 500 MG TAB PO SCH (09:00)
--- NOTE | 2023-04-17 11:03 | History & Physical Report ---
Date of Service April 17, 2023 Assessment & Plan (1) Intractable back pain: Plan: Assessment back pain. Plan at this time would like to obtain Dopplers of the right lower extremity ensure she does not have a DVT. Will also investigate her high liver enzymes and alk phos. Review of her MRIs thoracic and lumbar demonstrate no gross evidence of neural compression that could account for her leg pain or back symptoms. Admission and Anticipated Discharge Date Admission Date: April 16, 2023 History of Present Illness Chief Complaint: Back and right leg pain Primary Care Provider: Carlitos Rain MD This is a 47-year-old female well-known to me having worked with her in the past for multiple lumbar and thoracic issues. She presents with several week history of thoracolumbar back pain particular on the right and pain rating into the right leg. She denies any significant trauma fall or event. She is struggling with some personal issues at home as her has been diagnosed with brain cancer and is undergoing intensive treatment. This morning she is comfortable lying in bed. She states that she has trouble with ambulation as she is extreme weakness in her feet. Allergies Allergy/AdvReac Type Severity Reaction Status Date / Time No Known Drug Allergies Allergy Unknown NONE Verified 04/16/23 11:10 Home Medications Medication Instructions Recorded Confirmed Type atorvastatin 10 mg tablet 10 mg PO QAM 12/25/20 04/16/23 History cetirizine 10 mg tablet (Zyrtec) 10 mg PO QAM 12/25/20 04/16/23 History pramipexole 0.5 mg tablet 0.5 mg PO HS 12/25/20 04/16/23 History cholecalciferol (vitamin D3) 50 50 mcg PO QPM 05/07/22 04/16/23 History mcg (2,000 unit) capsule (Vitamin D3) metformin 500 mg tablet 500 mg PO QAM 05/07/22 04/16/23 History topiramate 50 mg tablet 50 mg PO BID 05/07/22 04/16/23 History bupropion HCl 150 mg 24 hr tablet, 150 mg PO QAM 08/31/22 04/16/23 History extended release esomeprazole magnesium 40 mg 40 mg PO DAILY 08/31/22 04/16/23 History capsule,delayed release montelukast 10 mg tablet 10 mg PO DAILY 08/31/22 04/16/23 History oxycodone 5 mg tablet 5 mg PO Q6H PRN pain #30 tabs 09/03/22 04/16/23 Rx acetaminophen 500 mg tablet 1,000 mg PO Q6H 04/16/23 04/16/23 History albuterol sulfate 90 mcg/actuation 2 puff inhalation Q4H PRN 04/16/23 04/16/23 History aerosol inhaler SOB/Wheezing buspirone 10 mg tablet 10 mg PO TID 04/16/23 04/16/23 History cyclobenzaprine 10 mg tablet 10 mg PO TID 04/16/23 04/16/23 History dulaglutide 1.5 mg/0.5 mL 1.5 mg subcut WK 04/16/23 04/16/23 History subcutaneous pen injector (Trulicity) hydroxyzine HCl 25 mg tablet 25 mg PO Q6H PRN Anxiety 04/16/23 04/16/23 History ondansetron 4 mg disintegrating 4 mg PO Q8H PRN Nausea And Vomiting 04/16/23 04/16/23 History tablet polyethylene glycol 3350 17 17 g PO DAILY PRN Constipation 04/16/23 04/16/23 History gram/dose oral powder pregabalin 150 mg capsule 150 mg PO TID 04/16/23 04/16/23 History trazodone 50 mg tablet 50 mg PO HS 04/16/23 04/16/23 History Past Med/Surg History Medical History (Updated 04/16/23 @ 20:06 by ALBERT Perez) Anxiety and depression History of TIA (transient ischemic attack) 03/20/22 -- initially thought to be a TIA, later determined to be complex migraine. No residual deficits DM type 2 (diabetes mellitus, type 2) Recently dx'ed (02/2022) Migraine Restless leg syndrome Dyslipidemia Allergic asthma H/O difficult intubation 11/05/13 - Glidescope #4, ETT #7.0, Atraumatic, GS x 1 without difficulty. Fibromyalgia Degenerative disc disease Chronic back pain Hiatal hernia GERD (gastroesophageal reflux disease) Surgical History History of arthroscopy of left shoulder Left Shoulder Arthroscopic Subacromial Decompression, Distal Clavicle Excision, Rotator Cuff Repair with [employer] History of spinal fusion [address] [facility] [address] Mc History of right knee joint replacement History of left knee replacement History of carpal tunnel release RIGHT - REMOVED CYST FROM RIGHT HAND AT SAME TIME History of section History of hysterectomy VALENCIA WITH RSO History of dilatation and curettage History of bilateral tubal ligation Spinal cord stimulator status PLACED 2016, REMOVED 2018 Fusion of spine L4-L5, L5-S1. 11/05/13: Glidescope #4, ETT #7.0, Atraumatic, GS x 1 without difficulty. History of colonoscopy History of esophagogastroduodenoscopy (EGD) History of tooth extraction History of tonsillectomy Family History Father Family history of diabetes mellitus Grandfather (Paternal) Family history of diabetes mellitus Grandmother (Paternal) Family history of diabetes mellitus Social History Smoking Status: Current every day smoker Tobacco Type: Cigarettes Cigarettes Per Day: 10; Second Hand Exposure: No; Do You Dip or Chew Tobacco: No; Tobacco Cessation Education Requested by Patient: No Hx Alcohol Use: Yes Alcohol type: wine Hx Substance Use: No Preferred Language: Citizen Of [place] Communication Ability: Effective Product Marketing Specialist Required: No Beliefs That Will Affect Care: None marital status: Current Living Situation: Spouse Other Information That Helps Us Care for You: No Feels Safe at Home: Yes Safety Concerns: Feels Safe At This Time Assistive Devices: Denture - Upper, Denture - Lower, Glasses and Walker Physical Exam Physical Exam: On exam she has difficulty with plantarflexion dorsiflexion bilaterally. Sensory is intact. She has tenderness palpation of right leg prickly along the calf. She is able to sit up for me. She has marked tenderness palpation of the right thoracolumbar region compared to the left. Her abdomen does demonstrate tenderness palpation in the right upper quadrant compared to the left. Results & Data Results & Data Vital Signs (Past 12 Hours) Vital Signs Temp Pulse Resp BP Pulse Ox O2 Del Method 04/17/23 10:56 36.6 C 68 18 123/84 98 Room Air 04/17/23 08:45 Room Air Code Status & VTE Plan VTE Prophylaxis Plan VTE Prophylaxis will be ordered: Yes
[2023-04-17 12:21] LABS: Albumin Level 3.9 gm/dl (3.4-5.0); Bilirubin Direct 0.1 mg/dl (0-0.2); Bilirubin,Total 0.4 mg/dl (0.2-1.0); Total Protein 6.1 gm/dl (6.0-8.3)
--- NOTE | 2023-04-17 12:44 | Hospitalist Progress Note ---
Date of Service April 17, 2023 Assessment & Plan (1) Intractable back pain: Plan 47-year-old female with PMH of T2DM, fibromyalgia, RLS, tobacco abuse, GERD, migraine, anxiety, depression, prior back surgeries x 4 presented to the ED for evaluation of intractable low back pain and RLE pain that started about 4 days ago [employer]. She denies any bowel or bladder incontinence. Denies any fever or chills. She is being managed for the following: Intractable back pain with RLE pain History of fibromyalgia, history of multiple back surgeries Patient coming in with back pain and RLE pain. See above. Thoracic and lumbar spine MRI and x-rays are unremarkable. Orthospine on board, trial of Valium and an NSAID. Continue home oxycodone for breakthrough pain. Continue home pregabalin. RLE Doppler sent to rule out DVT. PT/OT when able. Transaminitis Patient noted to have elevated aminal transferase and ALP level, normal bilirubin level at presentation. Patient reports very occasional alcohol use, no viral illness, no history of hepatitis, no excess use of Tylenol. Will trend LFT, ceruloplasmin level, FE/TIBC level, TSH, alpha-1 antitrypsin level, RUQ ultrasound. Tylenol and salicylate level. Hepatitis panel. GI consult, await recommendation. I will hold tylenol for now until otherwise recommended by GI. Holding lipitor. T2DM: A1c of 5.0 in November 2022. Glycemic pharmacy on board. Migraine: Chronic, stable. Chronic prophylactic Topamax. GERD: Chronic, stable. Continue home PPI. Anxiety and depression: Chronic, stable. Continue home meds. DVT prophylaxis: SCDs Full code Admission and Anticipated Discharge Date Admission Date: April 16, 2023 Subjective Patient was seen and examined at bedside. Patient was lying in bed, on room air, NAD. Patient reports right upper belly pain, has been eating okay and moving bowels okay. Patient reports very occasional alcohol use, denies excess use of Tylenol. Patient denies any viral-like illness or any history of viral hepatitis in the past. Patient reports right lower extremity pain throughout, will get US Doppler RLE. Physical Exam Physical Exam: GENERAL: Alert and oriented x3. NAD, on RA. HEENT: No pallor, no icterus. Pupils equal, round and reactive to light. Oral mucosa moist. NECK: No JVD, no neck masses. HEART: S1 and S2 heard. Regular rate and rhythm. No murmur, no gallop. RESPIRATORY SYSTEM: Normal AP diameter. No accessory muscle use. No wheezing, no crackles. ABDOMEN: Soft, bowel sounds present, RUQ tender, no distention. CENTRAL NERVOUS SYSTEM: No facial droop. Speech is clear. Obeys simple commands. Moves extremities. EXTREMITIES: 1+/trace edema, no erythema seen. RLE tender. Results & Data Results & Data Vital Signs (Past 12 Hours) Vital Signs Temp Pulse Resp BP Pulse Ox O2 Del Method 04/17/23 10:56 36.6 C 68 18 123/84 98 Room Air 04/17/23 08:45 Room Air
--- NOTE | 2023-04-17 13:20 | Pharmacy Report ---
Pharmacy Glycemic Sign Off Nt - Date of Service April 17, 2023 - Assessment & Plan ASSESSMENT: * Pharmacy was consulted by Dr Mc on 04/16/23 for glycemic control and to write orders per [facility] inpatient glycemic control protocol. * Major changes made by pharmacy to antidiabetic regimen include: * No changes * Patient has been receiving/requiring metformin 500 mg daily with BSGs ranging 70s-90s * Do not anticipate further changes in patient status that would quickly deteriorate glycemic control (i.e. patient to be NPO for upcoming procedure, steroids tapering, starting tube feedings, etc). PLAN FOR INPATIENT GLYCEMIC CONTROL: No changes needed to current regimen. * Continue metformin 500 mg daily * Pharmacy is signing off of glycemic consult and will no longer be making adjustments to inpatient regimen. Please feel free to re-consult if needed. Thank you.
[2023-04-17] MEDS: SOD PHOSPHATE/SOD BIPHOSPHATE ENEMA 132 ML BTL PR STA (13:27)
[2023-04-17] MEDS: metFORMIN HCL 500 MG TAB PO SCH (16:50)
--- NOTE | 2023-04-17 18:42 | Ultrasound Report ---
US venous doppler LE RT CLINICAL HISTORY: leg pain TECHNIQUE: Right lower extremity real-time compression venous ultrasound with Color Doppler imaging. Utilizing real-time ultrasonic imaging multiple real time high-resolution ultrasonic images with comp ression and noncompression maneuvers of the deep venous system in addition to color doppler imaging w ere performed from the common femoral vein through the proximal calf veins. COMPARISON: None available at the time of this dictation. FINDINGS/IMPRESSION: Currently there is normal compressibility of the deep venous system from the common femoral vein thro ugh the proximal calf veins. No superficial venous thrombosis is identified. ACT 112: Negative or not required by law. Electronically signed by: Paul Botello M.D. 04/17/2023 6:41 PM
--- NOTE | 2023-04-17 20:24 | Ultrasound Report ---
US liver CLINICAL HISTORY: transaminitis TECHNIQUE: Multiple real-time sonographic images of the right upper quadrant were obtained. Comparison: None available at the time of this dictation. FINDINGS: The liver is diffusely echogenic in appearance with poor ultrasound penetration, with normal contour, which is consistent with fatty infiltration. No focal mass lesions are seen. No intrahepatic duct al dilatation is seen. Patient is status post cholecystectomy. A sonographic Adler's sign was not e licited by the non destructive testing inspector. The common duct measures 0.6 cm in diameter at the level of the hepatic artery. The visualized portions of the pancreas appear normal. The right kidney shows normal echogenicity, cortical thickness and renal contour. The right kidney sh ows no evidence of hydronephrosis or mass. No ascites or free fluid is seen in Crespo's pouch. IMPRESSION: Unremarkable right upper quadrant ultrasound. ACT 112: Negative or not required by law. Electronically signed by: Paul Botello M.D. 04/17/2023 8:22 PM
[2023-04-18 06:30] LABS: Hematocrit (blood only) 37.9 % (37.0-47.0); Hemoglobin 12.2 g/dl (12.0-16.0); Mean Corpuscular Hgb Conc 32.2 g/dL (32.0-36.0); Mean Corpuscular Volume 96.2 fL (80.0-100.0); Mean Platelet Volume 12.1 fL (9.4-12.4); Platelet Count 132 K/uL (130-400); RDW Coefficient of Variation 13.1 % (11.5-14.5); RDW Standard Deviation 46.9 fL (36.4-46.3); Red Blood Count 3.94 M/uL (4.20-5.40); White Blood Count 4.58 K/ul (4.8-10.8)
[2023-04-18 06:39] LABS: Acetaminophen < 3 ug/ml (10-30); Salicylate < 3.0 mg/dl (3.0-30)
[2023-04-18 06:52] LABS: Albumin Globulin Ratio 1.9 (0.9-2); Albumin Level 3.7 gm/dl (3.4-5.0); BUN Creatinine Ratio 17.4 (10-20); Bilirubin,Total 0.5 mg/dl (0.2-1.0); Calcium 8.6 mg/dl (8.6-10.3); Creatinine Clr Calc Pharmacy 73.6 ml/min; Est GFR (African American) 85.3 ml/min; Est GFR (Non-African American) 73.6 ml/min; Globulin 1.9 gm/dl (2.5-4.0); Magnesium 1.8 mg/dl (1.7-2.4); Phosphorus 4.5 mg/dl (2.5-4.9); Potassium 3.6 mmol/L (3.5-5.1); Total Protein 5.6 gm/dl (6.0-8.3)
[2023-04-18 07:05] LABS: Thyroid Stimulating Hormone 0.404 uIu/ml (0.300-4.500)
--- NOTE | 2023-04-18 09:04 | Gastrointestinal Consultation ---
Date of Consultation April 18, 2023 Assessment & Plan (1) Elevated LFTs: 47 year old female admitted for management of back pain, incidentally elevated transaminases. MRCP Serology Repeat LFTs tomorrow Thank you for allowing us to participate in the care of this patient. Please call with any acute changes, questions or concerns. Please see addendum below with additional recommendation from my supervising physician. Supervising Physician Co-Signing Physician Notes I personally saw and evaluated the patient on 04/18/2023 with ALBERT Parks and agree with her findings and plan of care. Abdomen soft and non-tender. 47 y/o F admitted with back pain incidentally found to have elevated LFTs. She has PMH notable for DM2, fibromyalgia, depression, prior back surgeries. She was recently noted to have elevated LFTs (AST 1199, ALT 866, ALP 363, and total bilirubin 0.6) when she presented to [facility] on 04/13 and was ordered an abdominal ultrasound for this. Acute hepatitis panel was negative. Denies tyl enol use or NSAID use but was taking oxycodone for her back pain. Denies alcohol use and ethanol levels negative. She is s/p CCY. This ultrasound showed evidence of dilation of the biliary tree and CBD which they commented could be post CCY but could not exclude biliary process. Patient left AMA and therefore no further work up was done. She presented again to [facility] with ongoing back pain. Today her LFTs are significantly improved with AST 31, ALT 143, ALP 194, and total blirubin 0.5. I suspect viral etiology given significant elevation in LFTs that are now almost normalized. She denies any tylenol use with her back pain however acetaminophen levels were not checked 4 days ago. Would recommend checking an MRCP given biliary dilation seen on outside ultrasound to rule out obstruction. Check NE, ASMA, AMA, CMV and EBV IGM/IGG, ferritin and iron studies, ceruloplasmin, INR. Suspect her LFT elevation is self limited and will resolve as they are almost normalized. She denies any new medications to suspect DILI. Continue to trend daily LFTs. Comfort Montenegro, DO Gastroenterology nad Hepatology History of Present Illness Reason for Consultation: elevated LFTs Requesting Physician: Jesusita Attending Physician: Luke Mc, DO History of Present Illness 47 year old female with history of DM type II, fibromyalgia, RLS, tobacco abuse, GERD, migraines, anxiety, depression, prior back surgeries admitted with back pain- GI asked to evaluate for elevated LFTS. notes she feels well from gi standpoint. Some abd pain with palpation but no pain at rest. Appetite is good. Tolerating diet. No nausea/vomiting. Notes she has had elevated LFTs recently had abd us as an OP to evaluate. There were no acute findings on this. She had gb removed years ago for stones/sludge TB 0.5 AST 31 ALT 143 ALKP 194 ABD US 2023: Unremarkable right upper quadrant ultrasound. Allergies Allergy/AdvReac Type Severity Reaction Status Date / Time No Known Drug Allergies Allergy Unknown NONE Verified 04/16/23 11:10 Home Medications Medication Instructions Recorded Confirmed Type atorvastatin 10 mg tablet 10 mg PO QAM 12/25/20 04/16/23 History cetirizine 10 mg tablet (Zyrtec) 10 mg PO QAM 12/25/20 04/16/23 History pramipexole 0.5 mg tablet 0.5 mg PO HS 12/25/20 04/16/23 History cholecalciferol (vitamin D3) 50 50 mcg PO QPM 05/07/22 04/16/23 History mcg (2,000 unit) capsule (Vitamin D3) metformin 500 mg tablet 500 mg PO QAM 05/07/22 04/16/23 History topiramate 50 mg tablet 50 mg PO BID 05/07/22 04/16/23 History bupropion HCl 150 mg 24 hr tablet, 150 mg PO QAM 08/31/22 04/16/23 History extended release esomeprazole magnesium 40 mg 40 mg PO DAILY 08/31/22 04/16/23 History capsule,delayed release montelukast 10 mg tablet 10 mg PO DAILY 08/31/22 04/16/23 History oxycodone 5 mg tablet 5 mg PO Q6H PRN pain #30 tabs 09/03/22 04/16/23 Rx acetaminophen 500 mg tablet 1,000 mg PO Q6H 04/16/23 04/16/23 History albuterol sulfate 90 mcg/actuation 2 puff inhalation Q4H PRN 04/16/23 04/16/23 History aerosol inhaler SOB/Wheezing buspirone 10 mg tablet 10 mg PO TID 04/16/23 04/16/23 History cyclobenzaprine 10 mg tablet 10 mg PO TID 04/16/23 04/16/23 History dulaglutide 1.5 mg/0.5 mL 1.5 mg subcut WK 04/16/23 04/16/23 History subcutaneous pen injector (Trulicity) hydroxyzine HCl 25 mg tablet 25 mg PO Q6H PRN Anxiety 04/16/23 04/16/23 History ondansetron 4 mg disintegrating 4 mg PO Q8H PRN Nausea And Vomiting 04/16/23 04/16/23 History tablet polyethylene glycol 3350 17 17 g PO DAILY PRN Constipation 04/16/23 04/16/23 History gram/dose oral powder pregabalin 150 mg capsule 150 mg PO TID 04/16/23 04/16/23 History trazodone 50 mg tablet 50 mg PO HS 04/16/23 04/16/23 History Patient History Medical History (Updated 04/18/23 @ 09:44 by ALBERT Vivar) Anxiety and depression History of TIA (transient ischemic attack) 03/20/22 -- initially thought to be a TIA, later determined to be complex migraine. No residual deficits DM type 2 (diabetes mellitus, type 2) Recently dx'ed (02/2022) Migraine Restless leg syndrome Dyslipidemia Allergic asthma H/O difficult intubation 11/05/13 - Glidescope #4, ETT #7.0, Atraumatic, GS x 1 without difficulty. Fibromyalgia Degenerative disc disease Chronic back pain Hiatal hernia GERD (gastroesophageal reflux disease) Surgical History History of arthroscopy of left shoulder Left Shoulder Arthroscopic Subacromial Decompression, Distal Clavicle Excision, Rotator Cuff Repair with [employer] History of spinal fusion [address] [facility] [address] Mc History of right knee joint replacement History of left knee replacement History of carpal tunnel release RIGHT - REMOVED CYST FROM RIGHT HAND AT SAME TIME History of section History of hysterectomy VALENCIA WITH RSO History of dilatation and curettage History of bilateral tubal ligation Spinal cord stimulator status PLACED 2016, REMOVED 2018 Fusion of spine L4-L5, L5-S1. 11/05/13: Glidescope #4, ETT #7.0, Atraumatic, GS x 1 without difficulty. History of colonoscopy History of esophagogastroduodenoscopy (EGD) History of tooth extraction History of tonsillectomy Family History Father Family history of diabetes mellitus Grandfather (Paternal) Family history of diabetes mellitus Grandmother (Paternal) Family history of diabetes mellitus Social History Smoking Status: Current every day smoker Tobacco Type: Cigarettes Cigarettes Per Day: 10; Second Hand Exposure: No; Do You Dip or Chew Tobacco: No; Tobacco Cessation Education Requested by Patient: No Hx Alcohol Use: Yes Alcohol type: wine Hx Substance Use: No Preferred Language: Turkish Communication Ability: Effective Numberer And Wirer Required: No Beliefs That Will Affect Care: None marital status: Current Living Situation: Spouse Other Information That Helps Us Care for You: No Feels Safe at Home: Yes Safety Concerns: Feels Safe At This Time Assistive Devices: Denture - Upper, Denture - Lower, Glasses and Walker Review of Systems Review of Systems: All systems reviewed & are unremarkable except as noted in HPI & below Physical Exam Constitutional: WD/WN, vitals as above Respiratory: normal respiratory effort, lungs clear to auscultation Cardiovascular: RRR, no murmur, no edema Gastrointestinal (Abdomen): normal bowel sounds, soft, nontender, no hepatosplenomegaly Skin: no rashes, warm and dry Results & Data Vital Signs (Past 12 Hours) Vital Signs Temp Pulse Pulse Resp BP Pulse Ox O2 Del Method 04/18/23 07:41 36 C L 70 16 116/74 99 Room Air 04/18/23 07:40 Room Air 04/17/23 21:14 36.4 C L 70 18 108/72 97 Room Air Laboratory Results 04/18/23 04/18/23 04/18/23 Range/Units 07:31 05:47 05:28 WBC 4.58 L (4.8-10.8) K/ul RBC 3.94 L (4.20-5.40) M/uL Hgb 12.2 (12.0-16.0) g/dl Hct 37.9 (37.0-47.0) % MCV 96.2 (80.0-100.0) fL MCH 31.0 (25.0-34.0) pg MCHC 32.2 (32.0-36.0) g/dL RDW Std Deviation 46.9 H (36.4-46.3) fL RDW Coeff of Kaia 13.1 (11.5-14.5) % Plt Count 132 (130-400) K/uL MPV 12.1 (9.4-12.4) fL Sodium 142 (136-145) mmol/L Potassium 3.6 (3.5-5.1) mmol/L Chloride 110 H (98-107) mmol/L Carbon Dioxide 26 (21-32) mmol/L Anion Gap 6 (3-11) BUN 16 (6-23) mg/dl Creatinine 0.92 (0.6-1.2) mg/dl Est Cr Clr Drug Dosing 73.6 ml/min Est GFR ( Amer) 85.3 ml/min Est GFR (Non-Af Amer) 73.6 ml/min BUN/Creatinine Ratio 17.4 (10-20) Glucose 88 (70-99(Fasting)) mg/dl POC Glucose 86 85 (70-99) mg/dl Calcium 8.6 (8.6-10.3) mg/dl Phosphorus 4.5 (2.5-4.9) mg/dl Magnesium 1.8 (1.7-2.4) mg/dl Iron 174 H (35-150) mcg/dl TIBC 397 (250-450) mcg/dl Unsaturated IBC 223 (155-355) mcg/dl Transferrin % Sat 44 (15-50) % Total Bilirubin 0.5 (0.2-1.0) mg/dl Direct Bilirubin (0-0.2) mg/dl AST 31 (13-39) U/L ALT 143 H (7-52) U/L Alkaline Phosphatase 194 H (34-104) U/L Total Protein 5.6 L (6.0-8.3) gm/dl Albumin 3.7 (3.4-5.0) gm/dl Globulin 1.9 L (2.5-4.0) gm/dl Albumin/Globulin Ratio 1.9 (0.9-2) Hcnte-3-Aswwyjbhris Pending Ceruloplasmin Pending TSH 0.404 (0.300-4.500) uIu/ml Salicylates < 3.0 L (3.0-30) mg/dl Acetaminophen < 3 L (10-30) ug/ml Hepatitis A IgM Ab Hep Bs Antigen Hep Bs Ag Confirmation Hep B Core IgM Ab Hepatitis C Ab (EIA) 04/17/23 04/17/23 04/17/23 Range/Units 21:18 16:51 16:48 WBC (4.8-10.8) K/ul RBC (4.20-5.40) M/uL Hgb (12.0-16.0) g/dl Hct (37.0-47.0) % MCV (80.0-100.0) fL MCH (25.0-34.0) pg MCHC (32.0-36.0) g/dL RDW Std Deviation (36.4-46.3) fL RDW Coeff of Kaia (11.5-14.5) % Plt Count (130-400) K/uL MPV (9.4-12.4) fL Sodium (136-145) mmol/L Potassium (3.5-5.1) mmol/L Chloride (98-107) mmol/L Carbon Dioxide (21-32) mmol/L Anion Gap (3-11) BUN (6-23) mg/dl Creatinine (0.6-1.2) mg/dl Est Cr Clr Drug Dosing ml/min Est GFR ( Amer) ml/min Est GFR (Non-Af Amer) ml/min BUN/Creatinine Ratio (10-20) Glucose (70-99(Fasting)) mg/dl POC Glucose 85 72 60 L* (70-99) mg/dl Calcium (8.6-10.3) mg/dl Phosphorus (2.5-4.9) mg/dl Magnesium (1.7-2.4) mg/dl Iron (35-150) mcg/dl TIBC (250-450) mcg/dl Unsaturated IBC (155-355) mcg/dl Transferrin % Sat (15-50) % Total Bilirubin (0.2-1.0) mg/dl Direct Bilirubin (0-0.2) mg/dl AST (13-39) U/L ALT (7-52) U/L Alkaline Phosphatase (34-104) U/L Total Protein (6.0-8.3) gm/dl Albumin (3.4-5.0) gm/dl Globulin (2.5-4.0) gm/dl Albumin/Globulin Ratio (0.9-2) Hwafd-8-Kdyeolmysvo Ceruloplasmin TSH (0.300-4.500) uIu/ml Salicylates (3.0-30) mg/dl Acetaminophen (10-30) ug/ml Hepatitis A IgM Ab Hep Bs Antigen Hep Bs Ag Confirmation Hep B Core IgM Ab Hepatitis C Ab (EIA) 04/17/23 04/17/23 Range/Units 11:43 11:33 WBC (4.8-10.8) K/ul RBC (4.20-5.40) M/uL Hgb (12.0-16.0) g/dl Hct (37.0-47.0) % MCV (80.0-100.0) fL MCH (25.0-34.0) pg MCHC (32.0-36.0) g/dL RDW Std Deviation (36.4-46.3) fL RDW Coeff of Kaia (11.5-14.5) % Plt Count (130-400) K/uL MPV (9.4-12.4) fL Sodium (136-145) mmol/L Potassium (3.5-5.1) mmol/L Chloride (98-107) mmol/L Carbon Dioxide (21-32) mmol/L Anion Gap (3-11) BUN (6-23) mg/dl Creatinine (0.6-1.2) mg/dl Est Cr Clr Drug Dosing ml/min Est GFR ( Amer) ml/min Est GFR (Non-Af Amer) ml/min BUN/Creatinine Ratio (10-20) Glucose (70-99(Fasting)) mg/dl POC Glucose 74 (70-99) mg/dl Calcium (8.6-10.3) mg/dl Phosphorus (2.5-4.9) mg/dl Magnesium (1.7-2.4) mg/dl Iron (35-150) mcg/dl TIBC (250-450) mcg/dl Unsaturated IBC (155-355) mcg/dl Transferrin % Sat (15-50) % Total Bilirubin 0.4 (0.2-1.0) mg/dl Direct Bilirubin 0.1 (0-0.2) mg/dl AST 42 H (13-39) U/L ALT 200 H (7-52) U/L Alkaline Phosphatase 231 H (34-104) U/L Total Protein 6.1 (6.0-8.3) gm/dl Albumin 3.9 (3.4-5.0) gm/dl Globulin (2.5-4.0) gm/dl Albumin/Globulin Ratio (0.9-2) Gugnb-8-Rfiwhqffiep Ceruloplasmin TSH (0.300-4.500) uIu/ml Salicylates (3.0-30) mg/dl Acetaminophen (10-30) ug/ml Hepatitis A IgM Ab Pending Hep Bs Antigen Pending Hep Bs Ag Confirmation Pending Hep B Core IgM Ab Pending Hepatitis C Ab (EIA) Pending
--- NOTE | 2023-04-18 12:22 | Orthopedic Progress Note ---
Date of Service April 18, 2023 Assessment & Plan (1) Intractable back pain: Plan: At this time we are awaiting the completion of the GI workup. For an orthopedic standpoint she is okay to return home. Admission and Anticipated Discharge Date Admission Date: April 16, 2023 Subjective Patient's back pain is improving. She is still struggling with right upper quadrant pain. Physical Exam Physical Exam: Patient is currently in bed. She is comfortable. Neurologic exam is unchanged. Results & Data Vital Signs (Past 12 Hours) Vital Signs Temp Pulse Resp BP Pulse Ox O2 Del Method 04/18/23 07:41 36 C L 70 16 116/74 99 Room Air 04/18/23 07:40 Room Air
--- NOTE | 2023-04-18 15:37 | Hospitalist Progress Note ---
Date of Service April 18, 2023 Assessment & Plan (1) Intractable back pain: Plan 47-year-old female with PMH of T2DM, fibromyalgia, RLS, tobacco abuse, GERD, migraine, anxiety, depression, prior back surgeries x 4 presented to the ED for evaluation of intractable low back pain and RLE pain that started about 4 days ago [place]. She denies any bowel or bladder incontinence. Denies any fever or chills. She is being managed for the following: Intractable back pain with RLE pain History of fibromyalgia, history of multiple back surgeries Patient coming in with back pain and RLE pain. See above. Thoracic and lumbar spine MRI and x-rays are unremarkable. Orthospine on board, trial of Valium and an NSAID. Continue home oxycodone for breakthrough pain. Continue home pregabalin. RLE Doppler sent to rule out DVT - neg for DVT. PT/OT when able. Transaminitis Patient noted to have elevated aminal transferase and ALP level, normal bilirubin level at presentation. Patient reports very occasional alcohol use, no viral illness, no history of hepatitis, no excess use of Tylenol. Trend LFT, ceruloplasmin level, ferritin, TSH, alpha-1 antitrypsin level. Tylenol and salicylate level nl. Hepatitis panel and serology pending. GI onboard, plan for MRCP today. Tylenol and statin on hold. T2DM: A1c of 5.0 in November 2022. sliding scale insulin. Migraine: Chronic, stable. Chronic prophylactic Topamax. GERD: Chronic, stable. Continue home PPI. Anxiety and depression: Chronic, stable. Continue home meds. DVT prophylaxis: SCDs Full code Admission and Anticipated Discharge Date Admission Date: April 16, 2023 Subjective Patient was seen and examined at bedside. Patient was lying in bed, on room air, NAD. Patient reports feeling tired and no new other issues. Patient reports improving RUQ pain, back pain and RLE pain. Patient denies any headache or dizziness or chest pain or sore throat or cough. Physical Exam Physical Exam: GENERAL: Alert and oriented x3. NAD, on RA. HEENT: No pallor, no icterus. Pupils equal, round and reactive to light. Oral mucosa moist. NECK: No JVD, no neck masses. HEART: S1 and S2 heard. Regular rate and rhythm. No murmur, no gallop. RESPIRATORY SYSTEM: Normal AP diameter. No accessory muscle use. No wheezing, no crackles. ABDOMEN: Soft, bowel sounds present, RUQ tender - improving, no distention. CENTRAL NERVOUS SYSTEM: No facial droop. Speech is clear. Obeys simple comman ds. Moves extremities. EXTREMITIES: 1+/trace edema, no erythema seen. RLE tender. Results & Data Results & Data Vital Signs (Past 12 Hours) Vital Signs Temp Pulse Pulse Resp BP Pulse Ox O2 Del Method 04/18/23 14:28 36.4 C L 68 16 102/65 93 Room Air 04/18/23 12:05 36.5 C 75 18 118/80 100 Room Air 04/18/23 07:41 36 C L 70 16 116/74 99 Room Air 04/18/23 07:40 Room Air
[2023-04-18] MEDS: LORazepam 0.5 MG TAB PO PRN (16:28)
--- NOTE | 2023-04-18 18:29 | Magnetic Resonance Report ---
MRCP CLINICAL HISTORY: Elevated LFT, abdominal pain. TECHNIQUE: Utilizing a 1.5 Lila magnet and dedicated coil, multiplanar, multiecho imaging of the [facility] er abdomen was performed utilizing heavily T2 weighted pulsing sequences without IV contrast. COMPARISON STUDY: Right upper quadrant ultrasound April 17, 2023. FINDINGS: There is no biliary ductal dilatation status post cholecystectomy. The common bile duct waylon sures 7 mm in caliber. No common bile duct calculi identified. There is no pancreatic ductal dilatati on. No peripancreatic infiltration or fluid is noted. No hepatic lesions are identified on unenhanced exam. Unenhanced images of the spleen, adrenal glands and kidneys are normal. There is no hydronephr osis. Caliber of visualized small and large bowel are normal. Postoperative findings within the thora columbar spine with susceptibility artifact are present. There is no abdominal ascites. IMPRESSION: 1. No biliary ductal dilatation status post cholecystectomy. 2. No common bile duct calculi identified. ACT 112: Negative or not required by law. Electronically signed by: Ronald Pastrana M.D. 04/18/2023 6:27 PM
[2023-04-19 06:54] LABS: BUN Creatinine Ratio 23.3 (10-20); Bilirubin,Total 0.6 mg/dl (0.2-1.0); Calcium 8.9 mg/dl (8.6-10.3); Creatinine Clr Calc Pharmacy 78.7 ml/min; Est GFR (African American) 92.6 ml/min; Est GFR (Non-African American) 79.9 ml/min
[2023-04-19 07:13] LABS: Ferritin 30.4 ng/ml (8-388)
--- NOTE | 2023-04-19 08:49 | Gastroenterology Progress Note ---
Date of Service April 19, 2023 Assessment & Plan (1) Elevated LFTs: Plan: 47 year old female admitted for management of back pain, incidentally elevated transaminases. ABD US and MRCP without any obstructive findings, transaminases continue to improve, suspect viral etiology No GI contraindication to diet No GI contraindication to discharge May follow up serology when available Thank you for allowing us to participate in the care of this patient. Please ca ll with any acute changes, questions or concerns. Please see addendum below with additional recommendation from my supervising physician. Admission and Anticipated Discharge Date Admission Date: April 16, 2023 Supervising Physician Co-Signing Physician Notes Agree with pe and plan as documented Benign abdomen She is dressed and ready to leave this am, awaiting input about her back pain. Agree with further plan of care as documented. Subjective Feeling well Tolerating PO intake Transaminases continue to improve MRCP negative MRCP 2023: No biliary ductal dilatation status post cholecystectomy.. No common bile duct calculi identified. Review of Systems Review of Systems: All systems reviewed & are unremarkable except as noted in HPI & below Physical Exam Gastrointestinal (Abdomen): normal bowel sounds, soft, nontender, no hepatosplenomegaly Results & Data Vital Signs (Past 12 Hours) Vital Signs Temp Pulse Resp BP Pulse Ox O2 Del Method 04/19/23 07:39 36.4 C L 69 16 107/67 98 Room Air Laboratory Results 04/19/23 04/19/23 04/18/23 Range/Units 07:41 06:11 20:43 Sodium 138 (136-145) mmol/L Potassium 4.0 (3.5-5.1) mmol/L Chloride 109 H (98-107) mmol/L Carbon Dioxide 24 (21-32) mmol/L Anion Gap 5 (3-11) BUN 20 (6-23) mg/dl Creatinine 0.86 (0.6-1.2) mg/dl Est Cr Clr Drug Dosing 78.7 ml/min Est GFR ( Amer) 92.6 ml/min Est GFR (Non-Af Amer) 79.9 ml/min BUN/Creatinine Ratio 23.3 H (10-20) Glucose 91 (70-99(Fasting)) mg/dl POC Glucose 87 93 (70-99) mg/dl Calcium 8.9 (8.6-10.3) mg/dl Ferritin 30.4 (8-388) ng/ml Total Bilirubin 0.6 (0.2-1.0) mg/dl AST 23 (13-39) U/L ALT 109 H (7-52) U/L Alkaline Phosphatase 173 H (34-104) U/L Total Protein 6.0 (6.0-8.3) gm/dl Albumin 4.0 (3.4-5.0) gm/dl Globulin 2.0 L (2.5-4.0) gm/dl Albumin/Globulin Ratio 2.0 (0.9-2) NE Screen Pending Anti-Mitochondrial Ab Pending Anti-Smooth Muscle Ab Pending CMV IgM Ab Pending CMV IgG Ab/TORCH Pending EBV Capsid Ag IgG Ab Pending EBV Capsid Ag IgM Ab Pending 04/18/23 04/18/23 04/18/23 Range/Units 16:40 11:32 11:29 Sodium (136-145) mmol/L Potassium (3.5-5.1) mmol/L Chloride (98-107) mmol/L Carbon Dioxide (21-32) mmol/L Anion Gap (3-11) BUN (6-23) mg/dl Creatinine (0.6-1.2) mg/dl Est Cr Clr Drug Dosing ml/min Est GFR ( Amer) ml/min Est GFR (Non-Af Amer) ml/min BUN/Creatinine Ratio (10-20) Glucose (70-99(Fasting)) mg/dl POC Glucose 84 77 67 L* (70-99) mg/dl Calcium (8.6-10.3) mg/dl Ferritin (8-388) ng/ml Total Bilirubin (0.2-1.0) mg/dl AST (13-39) U/L ALT (7-52) U/L Alkaline Phosphatase (34-104) U/L Total Protein (6.0-8.3) gm/dl Albumin (3.4-5.0) gm/dl Globulin (2.5-4.0) gm/dl Albumin/Globulin Ratio (0.9-2) NE Screen Anti-Mitochondrial Ab Anti-Smooth Muscle Ab CMV IgM Ab CMV IgG Ab/TORCH EBV Capsid Ag IgG Ab EBV Capsid Ag IgM Ab
--- NOTE | 2023-04-19 10:36 | Hospitalist Progress Note ---
Date of Service April 19, 2023 Assessment & Plan (1) Elevated LFTs: (2) Intractable back pain: (3) DM type 2 (diabetes mellitus, type 2): (4) Fibromyalgia: Plan 47-year-old female with PMH of T2DM, fibromyalgia, RLS, tobacco abuse, GERD, migraine, anxiety, depression, prior back surgeries x 4 presented to the ED for evaluation of intractable low back pain and RLE pain that started about 4 days [employer]. She denies any bowel or bladder incontinence. Denies any fever or chills. She is being managed for the following: Intractable back pain with RLE pain History of fibromyalgia, history of multiple back surgeries Patient coming in with back pain and RLE pain. See above. Thoracic and lumbar spine MRI and x-rays are unremarkable. Orthospine on board, trial of Valium and an NSAID. Continue home oxycodone for breakthrough pain. Continue home pregabalin. RLE Doppler sent to rule out DVT - neg for DVT. PT/OT when able. Pt medically stable for discharge Transaminitis Patient noted to have elevated AST/ALT and ALP level, normal bilirubin level at presentation. Patient reports very occasional alcohol use, RSV 3 months ago, no history of hepatitis, no excess use of Tylenol. Trend LFT, ceruloplasmin level, ferritin, TSH, alpha-1 antitrypsin level. Tylenol and salicylate level nl. Hepatitis panel and serology pending. GI onboard MRCP wo acute abnormality Tylenol and statin on hold. T2DM: A1c of 5.0 in November 2022. sliding scale insulin. Migraine: Chronic, stable. Chronic prophylactic Topamax. GERD: Chronic, stable. Continue home PPI. Anxiety and depression: Chronic, stable. Continue home meds. DVT prophylaxis: SCDs Full code Dispo:pt medically stable for discharge today Pt was seen and examined in collaboration with Dr. Eldridge, please see addendum A total of 35 minutes was spent coordinating, documenting, and providing care for this patient excluding time spent in the performance of separately billed services. This included personally viewing all current laboratories and imaging studies, medication reconciliation, outpatient chart review, and discussion with specialists. Admission and Anticipated Discharge Date Admission Date: April 16, 2023 Supervising Physician Co-Signing Physician Notes Patient was seen and examined at bedside, LFT improving. Patient reports RLE pain improving. MRCP with no acute finding. No biliary duct dilatation, no common bile duct calculi noted. Patient made aware to follow-up with PCP, orthospine and GI as an outpatient. Patient voiced understanding. On examination, RUQ tenderness has improved significantly. Rest of the examination as above. I have seen and examined the patient and have discussed the case with the provider above. I agree with the assessment and plan as stated. Subjective Patient was seen and examined in room 309. Follow-up transaminitis and intractable back pain. She states she feels well today and is ready to go home. She is tolerating diet. She continues to have chronic low back pain but denies any radicular symptoms. She is moving bowels. She denies fever, chills, sweats, lightheadedness, dizziness, chest pain, shortness of breath, nausea, vomiting or abdominal pain. Review of Systems Review of Systems: All systems reviewed & are unremarkable except as noted in HPI & below Physical Exam Physical Exam: Gen: WD/WN, F, sitting up in bedside, ambulating about the room NAD, A&O x3 HEENT: Normocephalic, atraumatic, conjunctivae moist, sclerae anicteric, mucous membranes moist. Lung: Clear to Auscultation bilaterally, no wheezes/rales/rhonchi Heart: Regular rate, regular rhythm, no murmurs, rubs, or gallops Abdomen: Obese abdomen, soft, NT, ND +BS x 4 Extremities: No edema Skin: Warm, no rash, negative turgor. Results & Data Results & Data Vital Signs (Past 12 Hours) Vital Signs Temp Pulse Resp BP Pulse Ox O2 Del Method 04/19/23 07:39 36.4 C L 69 16 107/67 98 Room Air Laboratory Results [facility] 04/19/23 06:11 Sodium 138 Potassium 4.0 Chloride 109 H Carbon Dioxide 24 BUN 20 Creatinine 0.86 Glucose 91 Calcium 8.9 Liver Function 04/19/23 Range/Units 06:11 Total Bilirubin 0.6 (0.2-1.0) mg/dl AST 23 (13-39) U/L ALT 109 H (7-52) U/L Alkaline Phosphatase 173 H (34-104) U/L Albumin 4.0 (3.4-5.0) gm/dl Diagnostic Findings Lumbar Spine X-Ray 04/16/23 09:10 XR lumbar spine min 4V routine CLINICAL HISTORY: Back pain, hx surgery TECHNIQUE: 5 views of the lumbar spine were obtained. Comparison: Comparison is made to lumbar spine radiographs 12/25/2020 FINDINGS: Posterior fixation hardware is seen. Vertebral body heights and disc spaces are well maintained. The alignment is normal. No soft tissue abnormality is seen. IMPRESSION: No acute fracture or subluxation. ACT 112: Negative or not required by law. Electronically signed by: Paul Botello M.D. 04/16/2023 10:13 AM Thoracic Spine X-Ray 04/16/23 09:10 XR thoracic spine 3V routine CLINICAL HISTORY: Back pain, hx surgery TECHNIQUE: 3 views of the thoracic spine were obtained. Comparison: None available at the time of this dictation. FINDINGS: Posterior fixation hardware is seen in the lower thoracic spine. Degenerative changes are seen in the thoracic spine. Alignment appears unremarkable. Prevertebral soft tissues are within normal limits. IMPRESSION: Degenerative changes as above without acute fracture or subluxation. ACT 112: Negative or not required by law. Electronically signed by: Paul Botello M.D. 04/16/2023 10:19 AM Lumbar Spine MRI 04/16/23 10:02 MR lumbar spine wo con CLINICAL HISTORY: Low back pain, Leg weakness, numbness TECHNIQUE: Multiplanar sequences through the lumbar spine were obtained, without intravenous contrast. Comparison: Comparison is made to lumbar spine radiographs 04/27/2023 FINDINGS: Posterior fixation hardware is again seen in the lower thoracic and lumbar spine. T12-L1: There is minimal narrowing of the spinal canal due to facet arthropathy. L1-L2: No significant abnormality. L2-L3: No significant abnormality. L3-L4: No significant abnormality. L4-L5: No significant abnormality. L5-S1: No significant abnormality. The spinal ligaments are intact, without evidence of disruption or abnormal signal intensity. The spinal cord is normal in signal intensity and there is no evidence of cord contusion. There is no evidence of an extradural, intradural, extramedullary or intramedullary lesion. Soft tissue edema is seen about the posterior lumbar region which may represent edema and muscular atrophy. IMPRESSION: No significant canal or neuroforaminal stenosis. Edema of the paraspinal musculature in the lower lumbar region which may represent muscular atrophy. ACT 112: Negative or not required by law. Electronically signed by: Paul Botello M.D. 04/16/2023 1:11 PM Thoracic Spine MRI 04/16/23 10:02 MR thoracic spine wo con CLINICAL HISTORY: Low back pain, Leg weakness, numbness TECHNIQUE: Multiplanar sequences through the thoracic spine were obtained, without intravenous contrast. Comparison: None available at the time of this dictation. FINDINGS: Posterior fixation hardware is seen extending from T10 to T11 and L1-L5. Disks are normal in height and signal. The spinal canal and neural foramina are patent. The spinal ligaments are intact, without evidence of disruption or abnormal signal intensity. The spinal cord is normal in signal intensity and there is no evidence of cord contusion. There is no evidence of an extradural, intradural, extramedullary or intramedullary lesion. Visualized soft tissues are normal. IMPRESSION: No evidence of cord compression, significant neuroforaminal narrowing or ligamentous injury. ACT 112: Negative or not required by law. Electronically signed by: Paul Botello M.D. 04/16/2023 1:00 PM Venous Doppler Study 04/17/23 11:00 US venous doppler LE RT CLINICAL HISTORY: leg pain TECHNIQUE: Right lower extremity real-time compression venous ultrasound with Color Doppler imaging. Utilizing real-time ultrasonic imaging multiple real time high-resolution ultrasonic images with compression and noncompression maneuvers of the deep venous system in addition to color doppler imaging were performed from the common femoral vein through the proximal calf veins. COMPARISON: None available at the time of this dictation. FINDINGS/IMPRESSION: Currently there is normal compressibility of the deep venous system from the common femoral vein through the proximal calf veins. No superficial venous thrombosis is identified. ACT 112: Negative or not required by law. Electronically signed by: Paul Botello M.D. 04/17/2023 6:41 PM Liver Ultrasound 04/17/23 11:06 US liver CLINICAL HISTORY: transaminitis TECHNIQUE: Multiple real-time sonographic images of the right upper quadrant were obtained. Comparison: None available at the time of this dictation. FINDINGS: The liver is diffusely echogenic in appearance with poor ultrasound penetration, with normal contour, which is consistent with fatty infiltration. No focal mass lesions are seen. No intrahepatic ductal dilatation is seen. Patient is status post cholecystectomy. A sonographic Adler's sign was not elicited by the tool filer. The common duct measures 0.6 cm in diameter at the level of the hepatic artery. The visualized portions of the pancreas appear normal. The right kidney shows normal echogenicity, cortical thickness and renal contour. The right kidney shows no evidence of hydronephrosis or mass. No ascites or free fluid is seen in Crespo's pouch. IMPRESSION: Unremarkable right upper quadrant ultrasound. ACT 112: Negative or not required by law. Electronically signed by: Paul Botello M.D. 04/17/2023 8:22 PM Cholangiopancreatography MRI 04/18/23 09:01 MRCP CLINICAL HISTORY: Elevated LFT, abdominal pain. TECHNIQUE: Utilizing a 1.5 Lila magnet and dedicated coil, multiplanar, multiecho imaging of the upper abdomen was performed utilizing heavily T2 weighted pulsing sequences without IV contrast. COMPARISON STUDY: Right upper quadrant ultrasound April 17, 2023. FINDINGS: There is no biliary ductal dilatation status post cholecystectomy. The common bile duct measures 7 mm in caliber. No common bile duct calculi identified. There is no pancreatic ductal dilatation. No peripancreatic infiltration or fluid is noted. No hepatic lesions are identified on unenhanced exam. Unenhanced images of the spleen, adrenal glands and kidneys are normal. There is no hydronephrosis. Caliber of visualized small and large bowel are normal. Postoperative findings within the thoracolumbar spine with susceptibility artifact are present. There is no abdominal ascites. IMPRESSION: 1. No biliary ductal dilatation status post cholecystectomy. 2. No common bile duct calculi identified. ACT 112: Negative or not required by law. Electronically signed by: Ronald Pastrana M.D. 04/18/2023 6:27 PM Medications Administered Current Inpatient Medications Acetaminophen (Acetaminophen 500 Mg Tab) 1,000 mg PO Q8H PRN PRN Reason: MILD Pain Scale 1,2,3 & Pre PT Stop: 05/16/23 13:10 Atorvastatin Calcium (Atorvastatin 10 Mg Tab) 10 mg PO QAM [facility] Stop: 05/17/23 08:59 Last Admin: 04/17/23 08:37 Dose: 10 mg Bupropion HCl (Bupropion Xl 150 Mg Tabcr) 150 mg PO DAILY [facility] Stop: 05/17/23 08:59 Last Admin: 04/19/23 07:57 Dose: 150 mg Buspirone HCl (Buspirone 5 Mg Tab) 10 mg PO TID [facility] Stop: 05/16/23 20:59 Last Admin: 04/19/23 07:58 Dose: 10 mg Cetirizine HCl (Cetirizine Hcl 10 Mg Tablet) 10 mg PO QAM [facility] Stop: 05/17/23 08:59 Last Admin: 04/19/23 07:57 Dose: 10 mg Cyclobenzaprine HCl (Cyclobenzaprine Hcl 10 Mg Tab) 10 mg PO TID [facility] Stop: 05/16/23 20:59 Last Admin: 04/19/23 07:59 Dose: 10 mg Dextrose (Dextrose 50% 50 Ml Syringe) 25 - 50 ml IV UD PRN; Protocol PRN Reason: Hypoglycemia Protocol Stop: 05/16/23 14:14 Diazepam (Diazepam 5 Mg Tablet) 5 mg PO BID [facility] Stop: 05/16/23 20:59 Last Admin: 04/19/23 08:05 Dose: 5 mg Glucagon (Glucagon For Inj 1 Mg Vial) 1 mg IM UD PRN; Protocol PRN Reason: Hypoglycemia Protocol Stop: 05/16/23 14:14 Glucose (Glucose 40% Gel 15 Gm Tube) 15 - 30 gm PO UD PRN; Protocol PRN Reason: Hypoglycemia Protocol Stop: 05/16/23 14:14 Glucose (Glucose 10 Tab/Tube) 4 - 8 tab PO UD PRN; Protocol PRN Reason: Hypoglycemia Protocol Stop: 05/16/23 14:14 Hydromorphone HCl (Hydromorphone Inj 0.5 Mg/0.5 Ml Syr) 0.5 mg IV Q3H PRN PRN Reason: MOD pain (scale 4-6) & Pre PT Stop: 04/30/23 13:10 Hydromorphone HCl (Hydromorphone Inj 1 Mg/Ml Syringe) 1 mg IV Q3H PRN PRN Reason: severe pain (scale 7-10) Stop: 04/30/23 13:10 Last Admin: 04/16/23 16:59 Dose: 1 mg Hydroxyzine HCl (Hydroxyzine Hcl 25 Mg Tab) 25 mg PO Q6H PRN PRN Reason: Anxiety Stop: 05/16/23 16:40 Promethazine HCl 12.5 mg/ (Sodium Chloride) 50.5 mls @ 202 mls/hr IV Q6H PRN PRN Reason: Nausea &/or Vomiting Stop: 05/16/23 13:10 Lorazepam 0.5 mg/ Syringe 0.5 mls @ 2 mls/min IV Q8H PRN; Protocol PRN Reason: Sedation/Anxiety Stop: 05/16/23 13:10 Ibuprofen (Ibuprofen 800 Mg Tab) 800 mg PO TID [facility] Stop: 05/16/23 20:59 Last Admin: 04/19/23 07:58 Dose: 800 mg Lorazepam (Lorazepam 0.5 Mg Tab) 0.5 mg PO Q8H PRN PRN Reason: sedation/anxiety Stop: 05/16/23 13:10 Lorazepam (Lorazepam 0.5 Mg Tab) 0.5 mg PO ONE PRN PRN Reason: Prior to MRCP Stop: 05/18/23 12:14 Last Admin: 04/18/23 16:28 Dose: 0.5 mg Magnesium Hydroxide (Magnesium Hydroxide Susp 30 Ml Udc) 30 ml PO Q24H PRN PRN Reason: Constipation Stop: 05/16/23 13:10 Metformin HCl (Metformin Hcl 500 Mg Tab) 500 mg PO DAILYBD [facility] Stop: 05/17/23 15:29 Last Admin: 04/18/23 17:43 Dose: 500 mg Metoclopramide HCl (Metoclopramide Hcl Inj 5 Mg/Ml 2 Ml Vial) 10 mg IV Q6H PRN PRN Reason: Nausea &/or Vomiting Stop: 05/16/23 13:10 Miscellaneous (Carbohydrates For Hypoglycemia ) 15 - 30 gm PO UD PRN PRN Reason: Hypoglycemia Treatment Stop: 05/16/23 14:14 Montelukast Sodium (Montelukast Sodium 10 Mg Tablet) 10 mg PO DAILY [facility] Stop: 05/17/23 08:59 Last Admin: 04/19/23 07:58 Dose: 10 mg Naloxone HCl (Naloxone Hcl 0.4 Mg/1 Ml Vial/Carp) 0.1 mg IV Q5M PRN PRN Reason: Oversedation/respiratory dep Stop: 05/16/23 13:10 Ondansetron HCl (Ondansetron Inj 2 Mg/Ml 2 Ml Vial) 4 mg IV Q6H PRN PRN Reason: Nausea &/or Vomiting Stop: 05/16/23 13:10 Ondansetron HCl (Ondansetron 4 Mg Od Tab) 4 mg PO Q6H PRN PRN Reason: Nausea Stop: 05/16/23 13:10 Oxycodone HCl (Oxycodone Hcl Ir 5 Mg Tab (Immediate Release)) 5 - 10 mg PO Q4H PRN PRN Reason: mod to severe pain Stop: 04/30/23 13:10 Last Admin: 04/19/23 08:00 Dose: 10 mg Pantoprazole Sodium (Pantoprazole 40 Mg Tab) 40 mg PO BID [facility] Stop: 05/17/23 20:59 Last Admin: 04/19/23 07:58 Dose: 40 mg Pramipexole Dihydrochloride (Pramipexole Dihydrochlo 0.5 Mg Tab) 0.5 mg PO HS [facility] Stop: 05/16/23 20:59 Last Admin: 04/18/23 20:49 Dose: 0.5 mg Pregabalin (Pregabalin 150 Mg Cap) 150 mg PO TID [facility] Stop: 05/16/23 20:59 Last Admin: 04/19/23 08:05 Dose: 150 mg Topiramate (Topiramate 50 Mg Tab) 50 mg PO BID [facility] Stop: 05/16/23 20:59 Last Admin: 04/19/23 08:00 Dose: 50 mg Tramadol HCl (Tramadol Hcl 50 Mg Tablet) 50 - 100 mg PO Q4H PRN PRN Reason: Moderate-Severe pain & Pre PT Stop: 05/16/23 13:10 Trazodone HCl (Trazodone Hcl 50 Mg Tab) 50 mg PO HS [facility] Stop: 05/16/23 20:59 Last Admin: 04/18/23 20:54 Dose: 50 mg
[2023-04-19 11:16] LABS: HBSAG NON-REACTIVE (NON-REACTIVE); Hepatitis A Antibody IgM NON-REACTIVE (NON-REACTIVE); Hepatitis B Core Antibody IgM NON-REACTIVE (NON-REACTIVE)
--- NOTE | 2023-04-19 12:52 | Discharge Summary ---
Date of Service April 19, 2023 Admission HPI Per Admitting Provider This is a 47-year-old female well-known to me having worked with her in the past for multiple lumbar and thoracic issues. She presents with several week history of thoracolumbar back pain particular on the right and pain rating into the right leg. She denies any significant trauma fall or event. She is struggling with some personal issues at home as her has been diagnosed with brain cancer and is undergoing intensive treatment. This morning she is comfortable lying in bed. She states that she has trouble with ambulation as she is extreme weakness in her feet. Principal Diagnosis Chronic persistent lumbar back pain Discharge Data Allergies Allergy/AdvReac Type Severity Reaction Status Date / Time No Known Drug Allergies Allergy Unknown NONE Verified 04/16/23 11:10 Consultations 04/16/23 10:49 ED Decision to Admit Stat 04/16/23 13:11 Consult Internal Medicine Routine 04/17/23 11:07 Consult Gastroenterology Routine Ordered Studies 04/16/23 10:02 MR lumbar spine wo con Stat MR thoracic spine wo con Stat 04/17/23 11:00 US venous doppler LE RT Urgent 04/17/23 11:06 US liver Routine 04/18/23 09:01 MR MRCP Routine Hospital Course (1) Intractable back pain: Patient was admitted with intractable back pain and right leg symptoms. Throughout her workup was determined she had a viral hepatitis. It was improving throughout her hospital stay. Pain was also improving she was subsidy discharged home. Discharge orders instructions from the chart for further revie w. Total Time Total Time Spent Total Time Spent (In Minutes): 20 minutes Discharge Plan Discharge Items Patient Disposition: Home - Self-Care Reason For Visit: BACK and leg pain Discharge Diagnosis: back pain Condition on Discharge: Good Activity: Resume your previous activity Non-emergency contact: Primary Care Provider Call non-emergency contact if: you have any medication questions Follow-up/Referrals: Carlitos Rain MD [Primary Care Provider] - 04/25/23 2:00 pm (04/25/23 at 2:[address] Caitlin López) Diet: Regular Addtl Attending Provider Instructions: You are scheduled to follow up with your Primary Care Provider on 04/25/23 @ 2:00 p.m. Please keep this appointment. Please have your Primary care provider follow up on pending test results Results pending include: Alpha 1 antitrypsin, ceruloplasmin, NE Screen, Anti smooth muscle antibody, CMV and EBV titers, Acute Hepatitis Panel. Recommend follow up with Gastroenterology in regards to your elevated liver function tests. Your primary care can arrange this. Please hold your cholesterol medication, atorvastatin, until your see your primary care provider. It is recommended you have repeat liver function studies at this visit. Cholesterol medication can also raise your liver functions so it is recommend you hold off on this until it returns to normal. Continue all other medications prescribed. Pending Studies at Discharge: No Stand-Alone Forms: My [facility], Smoking Cessation Medications and DC Order Prescriptions: Continued cetirizine [Zyrtec] 10 mg Tablet 10 mg PO QAM pramipexole 0.5 mg Tablet 0.5 mg PO HS metformin 500 mg Tablet 500 mg PO QAM topiramate 50 mg Tablet 50 mg PO BID cholecalciferol (vitamin D3) [Vitamin D3] 50 mcg (2,000 unit) Capsule 50 mcg PO QPM esomeprazole magnesium 40 mg capsule,delayed release(DR/EC) 40 mg PO DAILY montelukast 10 mg tablet 10 mg PO DAILY bupropion HCl 150 mg tablet extended release 24 hr 150 mg PO QAM oxycodone 5 mg tablet 5 mg PO Q6H PRN (Reason: pain) Qty: 30 0RF cyclobenzaprine 10 mg tablet 10 mg PO TID trazodone 50 mg tablet 50 mg PO HS acetaminophen 500 mg tablet 1,000 mg PO Q6H buspirone 10 mg tablet 10 mg PO TID hydroxyzine HCl 25 mg tablet 25 mg PO Q6H PRN (Reason: Anxiety) polyethylene glycol 3350 17 gram/dose powder 17 g PO DAILY PRN (Reason: Constipation) albuterol sulfate 90 mcg/actuation HFA aerosol inhaler 2 puff INHALATION Q4H PRN (Reason: SOB/Wheezing) ondansetron 4 mg tablet,disintegrating 4 mg PO Q8H PRN (Reason: Nausea And Vomiting) pregabalin 150 mg capsule 150 mg PO TID Trulicity 1.5 mg/0.5 mL pen injector 1.5 mg SUBCUT WK Rx Instructions: Tuesdays Held atorvastatin 10 mg tablet 10 mg PO QAM Hold Instructions: Resume on 04/26/23. Hold this medication until you see your Primary Care Provider as this can also cause liver function elevation. Discharge Orders: Discharge Order (Routine); Ordered 04/19/23 Ordered By: Luke Mc Admission Data Admit Date/Time: 04/16/23 10:07 Attending Provider: Luke Mc Admit Provider: Luke Mc Primary Care Provider: Carlitos Rain Other Providers: Luke Mc; Sera Day; Nakia Mei Jr
[2023-04-19 16:31] LABS: Alpha 1 Antitrypsin 142 mg/dL (83-199); Ceruloplasmin 25 mg/dL (18-53)
[2023-04-20 15:16] LABS: Anti Mitochondrial Antibody NEGATIVE (NEGATIVE); Anti Nuclear Antibody Screen NEGATIVE (NEGATIVE); CMV IgM Antibody <30.00 AU/mL; Smooth Muscle Antibody NEGATIVE (NEGATIVE)
== END 2023-04-19 14:24 | disposition home or self-care (01) | DRG 552 ==
LOC: ED 08:35 → 3E 10:07